=== PATIENT | male | born 1940 | race American Indian/Alaskan Native ===

== ENCOUNTER 2019-08-14 16:07 | Emergency (ER) | payer SELFPAY | END 2019-08-14 19:17 | disposition left against medical advice (07) | LOC: ED 16:07 | DX: R63.0 Anorexia (principal); Z53.21 Procedure and treatment not carried out due to patient leaving prior to being seen by health care provider ==

== ENCOUNTER 2021-01-12 13:56 | Inpatient (IN) | payer MEDICARE, OTHER ==
[2021-01-12] MEDS ORDERED: LORazepam 2 MG/ML VIAL ONE ×2 (13:58→14:05)
[2021-01-12] MEDS ORDERED: LORazepam 2 MG/ML VIAL IV ONE ×3 (14:05→14:19)
--- NOTE | 2021-01-12 14:52 | XRay Report ---
CHEST - 1 VIEW INDICATION: seizure COMPARISON: 10/02/2020 FINDINGS: SUPPORT DEVICES: Stable support device positioning. HEART: Stable cardiomediastinal silhouette. LUNGS/PLEURA: Small skin fold over the right upper lobe region. Mild streaky left basilar airspace d isease and mild bilateral central peribronchial thickening could be seen with early edema among other etiologies. ADDITIONAL FINDINGS: None. IMPRESSION: Pulmonary findings as above. Signer Name: Aguilar Anne MD Signed: 01/12/2021 2:48 PM Workstation Name: [id number]
[2021-01-12 14:55] LABS: Basophils # (Auto) 0.1 K/mm3 (0.0-0.1); Basophils % (Auto) 0.6 % (0.0-1.8); Eosinophils % (Auto) 0.4 % (0.0-4.3); Hemoglobin 12.3 gm/dl (11.8-15.2); Lymphocytes # (Auto) 1.6 K/mm3 (1.2-5.4); Lymphocytes % (Auto) 14.4 % (13.4-35.0); Mean Corpuscular HGB Conc 32 % (32-34); Mean Corpuscular Volume 85 fl (84-94); Monocytes # (Auto) 0.6 K/mm3 (0.0-0.8); Platelet Count 156 K/mm3 (140-440); Red Blood Count 4.57 M/mm3 (3.65-5.03)
[2021-01-12] MEDS ORDERED: levETIRAcetam 1000 MG/NS 0.75% 1,000 MG/100 ML BAG IV ONE (15:00)
[2021-01-12 15:48] LABS: Alanine Aminotransferase 11 units/L (7-56); Albumin 3.4 g/dL (3.9-5); BUN/Creatinine Ratio 8; Blood Urea Nitrogen 15 mg/dL (9-20); Calcium 8.2 mg/dL (8.4-10.2); Hemolysis Index 61
--- NOTE | 2021-01-12 15:54 | Cat Scan Report ---
CT BRAIN: 01/12/2021 INDICATION / CLINICAL INFORMATION: seizure. COMPARISON: CT brain 10/02/2020 FINDINGS: BRAIN/INTRACRANIAL STRUCTURES: Unenhanced CT images of the brain were obtained. There is been interval near complete resolution of the previously seen right frontoparietal subdural hygroma. There is some minimal residual pleural thickening and a small portion of the right frontal l obe. Prominent underlying age-related atrophic changes and extensive chronic white matter hypoattenuation is present. There is no evidence of hemorrhage or mass. There are no abnormal extra-axial fluid collections. Atherosclerotic vascular calcifications are present in the distal internal carotid arteries and verte bral arteries. EXTRACRANIAL STRUCTURES: Unremarkable. IMPRESSION: No acute abnormality. Extensive chronic and age-related changes. All CT scans at this location are performed using dose reduction to ALARA by means of automated expos ure control. Signer Name: Misael Hanley MD Signed: 01/12/2021 3:49 PM Workstation Name: [id number]
[2021-01-12 16:00] LABS: Bilirubin,Direct < 0.2 mg/dL (0-0.2)
--- NOTE | 2021-01-12 16:34 | Emergency Department Report ---
ED Seizure HPI - General Chief Complaint: Seizure Stated Complaint: SEIZURE Time Seen by Provider: 01/12/21 14:17 Source: EMS Mode of arrival: Stretcher Limitations: No Limitations - History of Present Illness Initial Comments: 80-year-old male presents to ED from dialysis with active seizure. EMS did not give any medications in route. EMS states dialysis center actually thought that patient was in cardiac arrest and was doing chest compressions on patient when they arrived. However, patient did have a pulse and was actually having a seizure. Patient presents to ED actively seizing. No history of seizure. I spoke with patient's and daughter. Family states patient is currently living in a rehab facility. states she went by to see him on yesterday and he had no complaints. Daughter states patient has been increasingly weak and having decreased p.o. intake, so rehab facility gave patient a bolus of IV fluids on yesterday. Daughter states patient is a full code. MD Complaint: seizure -: This afternoon Description of Episode: loss of consciousness -: minutes(s) (15) Witnessed:: Yes Trauma: No Seizure History: none Place: other (Dialysis center) Treatments Prior to Arrival: none - Related Data Home Medications Medication Instructions Recorded Confirmed Last Taken Alogliptin Benzoate [Alogliptin] 1 tab PO DAILY 10/02/20 10/25/20 Unknown Sevelamer Carbonate [Renvela] 800 mg PO TIDWM 10/02/20 10/25/20 Unknown buprenorphine hcl [Subutex] 2 mg SL QDAY PRN 10/02/20 10/25/20 Unknown Previous Rx's Medication Instructions Recorded Last Taken Type AtorvaSTATin [Lipitor] 40 mg PO QHS #30 10/11/20 Unknown Rx Docusate Sodium [Colace CAP] 100 mg PO BID PRN #60 cap 10/11/20 Unknown Rx Doxazosin [Cardura] 4 mg PO QDAY #30 10/11/20 Unknown Rx Febuxostat 40 mg PO QDAY #30 10/11/20 Unknown Rx Ketotifen Fumarate 1 drop OU QDAY #1 bottle 10/11/20 Unknown Rx Lansoprazole Solutab [Prevacid 30 mg FEEDTUBE BID #60 tab.rapdis 10/11/20 Unknown Rx Solutab] Megestrol Acetate 40 mg PO QDAY #30 10/11/20 Unknown Rx Metoprolol [Lopressor TAB] 12.5 mg PO BID #60 tablet 10/11/20 Unknown Rx calcitrioL [Rocaltrol] 1 mcg PO QDAY #30 cap 10/11/20 Unknown Rx timoloL maleate [Timolol Maleate 1 drop OP BID #1 bottle 10/11/20 Unknown Rx 0.25%] Allergies Allergy/AdvReac Type Severity Reaction Status Date / Time No Known Allergies Allergy Verified 08/14/19 16:11 ED Review of Systems ROS: Stated complaint: SEIZURE Other details as noted in HPI Comment: Unobtainable due to pts medical conditions ED Past Medical Hx - Past Medical History Hx Hypertension: Yes Hx Diabetes: Yes Hx Renal Disease: Yes ("home dialysis" ( T-T-S )) - Surgical History Additional Surgical History: dialysis port - Social History Smoking Status: Unknown if ever smoked - Medications Home Medications: Home Medications Medication Instructions Recorded Confirmed Last Taken Type Alogliptin Benzoate [Alogliptin] 1 tab PO DAILY 10/02/20 10/25/20 Unknown History Sevelamer Carbonate [Renvela] 800 mg PO TIDWM 10/02/20 10/25/20 Unknown History buprenorphine hcl [Subutex] 2 mg SL QDAY PRN 10/02/20 10/25/20 Unknown History AtorvaSTATin [Lipitor] 40 mg PO QHS #30 10/11/20 10/25/20 Unknown Rx Docusate Sodium [Colace CAP] 100 mg PO BID PRN #60 cap 10/11/20 10/25/20 Unknown Rx Doxazosin [Cardura] 4 mg PO QDAY #30 10/11/20 10/25/20 Unknown Rx Febuxostat 40 mg PO QDAY #30 10/11/20 10/25/20 Unknown Rx Ketotifen Fumarate 1 drop OU QDAY #1 bottle 10/11/20 10/25/20 Unknown Rx Lansoprazole Solutab [Prevacid 30 mg FEEDTUBE BID #60 tab.rapdis 10/11/20 10/25/20 Unknown Rx Solutab] Megestrol Acetate 40 mg PO QDAY #30 10/11/20 10/25/20 Unknown Rx Metoprolol [Lopressor TAB] 12.5 mg PO BID #60 tablet 10/11/20 10/25/20 Unknown Rx calcitrioL [Rocaltrol] 1 mcg PO QDAY #30 cap 10/11/20 10/25/20 Unknown Rx timoloL maleate [Timolol Maleate 1 drop OP BID #1 bottle 10/11/20 10/25/20 Unknown Rx 0.25%] ED Physical Exam - General Limitations: No Limitations General appearance: obtunded - Head Head exam: Present: atraumatic, normocephalic - Eye Eye exam: Present: other (Leftward gaze present) - ENT ENT exam: Present: mucous membranes moist - Neck Neck exam: Present: normal inspection - Respiratory Respiratory exam: Present: normal lung sounds bilaterally. Absent: respiratory distress - Cardiovascular Cardiovascular Exam: Present: regular rate, normal rhythm - GI/Abdominal GI/Abdominal exam: Present: soft, other (PEG tube in place). Absent: distended - Extremities Exam Extremities exam: Present: normal inspection - Neurological Exam Neurological exam: Present: other (Actively seizing; initially generalized, then located in the left upper extremity w/ leftward gaze deviation) - Psychiatric Psychiatric exam: Present: normal affect, normal mood - Skin Skin exam: Present: warm, dry, intact, normal color ED Course Vital Signs 01/12/21 01/12/21 01/12/21 14:14 14:15 14:31 Temperature Pulse Rate 95 H Respiratory 21 Rate Blood Pressure 148/66 Blood Pressure [Left] O2 Sat by Pulse 76 L 100 100 Oximetry 01/12/21 01/12/21 01/12/21 14:45 15:01 15:15 Temperature Pulse Rate 95 H 92 H 90 Respiratory 31 H 25 H 30 H Rate Blood Pressure 141/80 135/68 134/65 Blood Pressure [Left] O2 Sat by Pulse 100 100 100 Oximetry 01/12/21 01/12/21 01/12/21 15:31 15:45 15:52 Temperature 98.3 F Pulse Rate 96 H 87 Respiratory 26 H 26 H Rate Blood Pressure 137/66 137/66 Blood Pressure [Left] O2 Sat by Pulse 100 100 Oximetry 01/12/21 01/12/21 01/12/21 16:01 16:15 16:45 Temperature Pulse Rate 83 86 109 H Respiratory 25 H 25 H 33 H Rate Blood Pressure 145/64 137/66 145/64 Blood Pressure [Left] O2 Sat by Pulse 100 98 97 Oximetry 01/12/21 01/12/21 01/12/21 17:01 17:15 18:15 Temperature Pulse Rate 93 H 96 H 76 Respiratory 38 H 25 H 29 H Rate Blood Pressure 183/86 183/86 168/83 Blood Pressure [Left] O2 Sat by Pulse 96 96 97 Oximetry 01/12/21 01/12/21 01/12/21 18:31 19:01 19:31 Temperature Pulse Rate 71 76 83 Respiratory 39 H 42 H 20 Rate Blood Pressure 168/83 172/82 152/80 Blood Pressure [Left] O2 Sat by Pulse 97 96 97 Oximetry 01/12/21 01/12/21 01/12/21 20:01 20:21 20:35 Temperature Pulse Rate 98 H 75 71 Respiratory 32 H 40 H 28 H Rate Blood Pressure 191/98 191/98 Blood Pressure 188/84 [Left] O2 Sat by Pulse 97 99 99 Oximetry 01/12/21 01/12/21 01/12/21 20:39 20:41 20:51 Temperature Pulse Rate 74 69 75 Respiratory 39 H 37 H 40 H Rate Blood Pressure 188/84 188/84 191/98 Blood Pressure [Left] O2 Sat by Pulse 98 99 99 Oximetry 01/12/21 01/12/21 21:01 21:11 Temperature Pulse Rate 71 72 Respiratory 31 H 39 H Rate Blood Pressure 188/83 188/83 Blood Pressure [Left] O2 Sat by Pulse 99 99 Oximetry ED Medical Decision Making - Lab Data Result diagrams: 01/12/21 14:36 01/13/21 05:19 - EKG Data -: EKG Interpreted by Nv EKG shows normal: QRS complexes, ST-T waves Rate: normal - EKG Data Interpretation: no acute changes, other (Atrial flutter) - Radiology Data Radiology results: report reviewed, image reviewed - Medical Decision Making 80-year-old male presents to ED with new onset seizure. Patient had been seizing for at least 15 minutes, per EMS, while in their care. No meds given by EMS. Patient was given a total of 6 mg of Ativan and 1000 mg of Keppra upon arrival in the ED. Seizure activity and gaze deviation have currently resolved, however patient remains postictal and sedated. No further seizures in the ED. CT head negative for any acute findings. Labs are unremarkable. Chest x-ray shows findings of possible early edema. Vital signs are stable. EKG shows new onset atrial flutter, with no ST changes. Patient will be admitted by hospitalist, Dr. Grant, for further management. - Differential Diagnosis CVA, epilepsy, mass, electrolyte abnormality Critical care attestation.: If time is entered above; I have spent that time in minutes in the direct care of this critically ill patient, excluding procedure time. ED Disposition Clinical Impression: New onset seizure, New onset atrial flutter, Postictal state Disposition: OP ADMIT IP TO THIS HOSP Is pt being admited?: Yes Condition: Stable
--- NOTE | 2021-01-12 16:49 | History and Physical Report ---
History of Present Illness Chief complaint: He had a seizure History of present illness: 80 YO Male [facility] Resident with ESRD on HD(T,R,Sa), HLD, HTN, Vascular Dementia, Cerebral Atherosclerosis presents to ED for evaluation. Patient has diminished cognition at the time my evaluation is unable provide detailed history. Patient history taken from EMS staff, ED staff, as well as the patient's family who was made available by telephone for interview. As per family the patient was in his usual state of health when visited at the halfway facility by his on yesterday. Patient presented to his outpatient dialysis center today for routine scheduled dialysis. Patient was initially pierce spected to have cardiac arrest and was initiated on ACLS protocol. EMS was notified and upon arrival the patient was found to be and actively seizing. Chest compressions were discontinued. The patient was subsequently transported to [facility] for further care and evaluation of the aforementioned symptoms. The patient was seen and evaluated in the emergency department. All lab and imaging studies reviewed. Patient found to have new onset seizure disorder, end-stage renal disease, acidosis. Patient placed in observation status and admitted to telemetry for further care and evaluation of the aforementioned symptoms. No reports of fever, chills, chest pain, palpitation, productive cough, skin rash, recent ill contacts, or known exposure to COVID-19. Prior admission on 10/25/2020 reviewed. All medication listed at time of admission has been reconciled. Advanced care planning conducted in ED. Past History Past Medical History: ESRD, hypertension, hyperlipidemia, other (See HPI) Past Surgical History: Other (Dialysis access) Social history: . denies: smoking, alcohol abuse Family history: diabetes, hypertension Medications and Allergies Allergies Allergy/AdvReac Type Severity Reaction Status Date / Time No Known Allergies Allergy Verified 08/14/19 16:11 Home Medications Medication Instructions Recorded Confirmed Last Taken Type Alogliptin Benzoate [Alogliptin] 1 tab PO DAILY 10/02/20 10/25/20 Unknown History Sevelamer Carbonate [Renvela] 800 mg PO TIDWM 10/02/20 10/25/20 Unknown History buprenorphine hcl [Subutex] 2 mg SL QDAY PRN 10/02/20 10/25/20 Unknown History AtorvaSTATin [Lipitor] 40 mg PO QHS #30 10/11/20 10/25/20 Unknown Rx Docusate Sodium [Colace CAP] 100 mg PO BID PRN #60 cap 10/11/20 10/25/20 Unknown Rx Doxazosin [Cardura] 4 mg PO QDAY #30 10/11/20 10/25/20 Unknown Rx Febuxostat 40 mg PO QDAY #30 10/11/20 10/25/20 Unknown Rx Ketotifen Fumarate 1 drop OU QDAY #1 bottle 10/11/20 10/25/20 Unknown Rx Lansoprazole Solutab [Prevacid 30 mg FEEDTUBE BID #60 tab.rapdis 10/11/20 10/25/20 Unknown Rx Solutab] Megestrol Acetate 40 mg PO QDAY #30 10/11/20 10/25/20 Unknown Rx Metoprolol [Lopressor TAB] 12.5 mg PO BID #60 tablet 10/11/20 10/25/20 Unknown Rx calcitrioL [Rocaltrol] 1 mcg PO QDAY #30 cap 10/11/20 10/25/20 Unknown Rx timoloL maleate [Timolol Maleate 1 drop OP BID #1 bottle 10/11/20 10/25/20 Unknown Rx 0.25%] Review of Systems ROS unobtainable: due to mental status Exam - Constitutional Vitals: Temp Pulse Resp BP Pulse Ox 98.3 F 87 26 H 137/66 100 01/12/21 15:52 01/12/21 15:45 01/12/21 15:45 01/12/21 15:45 01/12/21 15:45 General appearance: Present: mild distress - EENT Eyes: Present: PERRL ENT: hearing intact, clear oral mucosa - Neck Neck: Present: supple, normal ROM - Respiratory Respiratory effort: normal Respiratory: bilateral: CTA - Cardiovascular Heart Sounds: Present: S1 & S2. Absent: rub, click - Extremities Extremities: pulses symmetrical, No edema Peripheral Pulses: within normal limits - Abdominal General gastrointestinal: Present: soft, non-tender, non-distended, normal bowel sounds Male genitourinary: Present: normal - Integumentary Integumentary: Present: clear, warm, dry - Musculoskeletal Musculoskeletal: generalized weakness - Psychiatric Psychiatric: no appropriate mood/affect, no intact judgment & insight, no memory intact - Neurologic Neurologic: CNII-XII intact, no focal deficits, moves all extremities, no gait normal Results - Labs CBC & Chem 7: 07/10/21 14:36 01/12/21 14:36 Labs: Abnormal lab results 01/12/21 01/12/21 01/12/21 Range/Units 14:12 14:36 14:36 WBC 11.2 H (4.5-11.0) K/mm3 MCH 27 L (28-32) pg RDW 21.0 H (13.2-15.2) % Seg Neutrophils % 79.6 H (40.0-70.0) % Seg Neutrophils # 8.9 H (1.8-7.7) K/mm3 Sodium 136 L (137-145) mmol/L Chloride 95.8 L (98-107) mmol/L Carbon Dioxide 19 L (22-30) mmol/L Creatinine 2.0 H (0.8-1.3) mg/dL Glucose 163 H (75-100) mg/dL POC Glucose 166 H (70-105) mg/dL Calcium 8.2 L (8.4-10.2) mg/dL Total Protein 5.4 L (6.3-8.2) g/dL Albumin 3.4 L (3.9-5) g/dL Assessment and Plan - Patient Problems (1) Vascular dementia Current Visit: Yes Status: Acute Qualifiers: Dementia behavioral disturbance: without behavioral disturbance Qualified Code(s): F01.50 - Vascular dementia without behavioral disturbance Plan to address problem: Verbal prompting, verbal redirection, benzodiazepine therapy as clinically indicated, supportive care. (2) Cerebral atherosclerosis Current Visit: Yes Status: Acute Plan to address problem: Antiplatelet therapy as clinically indicated, supportive care. (3) End stage renal disease Current Visit: Yes Status: Acute Plan to address problem: Nephrology team consulted in ED, dialysis as per renal team, avoid nephrotoxic agents. (4) New onset seizure Current Visit: Yes Status: Acute Plan to address problem: Keppra therapy, Keppra therapy twice daily, supportive care, CT scan brain (5) DVT prophylaxis Current Visit: Yes Status: Acute Plan to address problem: SCD to bilateral lower extremities while in bed, prophylactic anticoagulation (6) Advance care planning Current Visit: Yes Status: Acute Plan to address problem: Disease education conducted, care plan discussed, diagnoses discussed, prognosis discussed, patient is full code. Patient family knowledge understanding agree with care plan, +30 minutes.
[2021-01-12] MEDS ORDERED: DOCUSATE SODIUM 100 MG CAP PO PRN (18:54)
[2021-01-12] MEDS ORDERED: buprenorphine 2 MG TAB SUBL SL PRN (18:54)
[2021-01-12] MEDS ORDERED: HYDROmorphone 1 MG/1 ML INJ IV PRN (19:30)
[2021-01-12] MEDS ORDERED: oxyCODONE /ACETAMINOPHEN 5-325MG TAB PO PRN (19:30)
[2021-01-12] MEDS ORDERED: ALBUTEROL 2.5 MG/3 ML NEBU IH PRN (19:30)
[2021-01-12] MEDS ORDERED: ACETAMINOPHEN 325 MG TAB PO PRN (19:30)
[2021-01-12] MEDS ORDERED: ONDANSETRON 4 MG/2 ML INJ IV PRN (19:30)
[2021-01-12] MEDS: METOPROLOL TARTRATE 25 MG TAB PO SCH (23:19)
[2021-01-12] MEDS: levETIRAcetam 500 MG/5 ML ORAL LIQD PO SCH (23:19)
[2021-01-12] MEDS: LANSOPRAZOLE 30 MG SOLUTAB FEEDTUBE SCH (23:19)
[2021-01-13] MEDS: hydrALAZINE 20 MG/1 ML INJ IV PRN (05:33)
[2021-01-13 07:58] LABS: Albumin 3.3 g/dL (3.9-5)
--- NOTE | 2021-01-13 09:20 | Progress Note ---
Assessment and Plan Assessment and plan: 80 YO Male Residential Facility Resident with ESRD on HD(T,R,Sa), HLD, HTN, Vascular Dementia, Cerebral Atherosclerosi admitted with diagnosis of new onset seizure. Patient was started on IV Keppra. Patient has had no new seizure activity. New onset seizure disorder. Vascular dementia Cerebral atherosclerosis ESRD 01/13/2021. Seizure precautions. Continue IV Keppra and await neurology eval uation. Check EEG and MRI. CT scan negative. Continue hemodialysis per nephrology recommendations. History Interval history: No new seizures since admission Hospitalist Physical - Constitutional Vitals: Temp Pulse Resp BP Pulse Ox 97.8 F 82 18 151/82 100 01/13/21 08:19 01/13/21 08:19 01/13/21 08:19 01/13/21 08:19 01/13/21 08:19 General appearance: Present: no acute distress - EENT Eyes: Present: PERRL, EOM intact ENT: hearing intact, clear oral mucosa, dentition normal - Neck Neck: Present: supple, normal ROM - Respiratory Respiratory effort: normal Respiratory: bilateral: CTA - Cardiovascular Rhythm: regular Heart Sounds: Present: S1 & S2. Absent: gallop, rub - Extremities Extremities: no ischemia, No edema, Full ROM - Abdominal General gastrointestinal: soft, non-tender, non-distended, normal bowel sounds - Integumentary Integumentary: Present: clear, warm, dry - Neurologic Neurologic: CNII-XII intact, moves all extremities Results - Labs CBC & Chem 7: 01/12/21 14:36 01/13/21 05:19 Labs: Laboratory Last Values WBC 11.2 K/mm3 (4.5-11.0) H 01/12/21 14:36 RBC 4.57 M/mm3 (3.65-5.03) 01/12/21 14:36 Hgb 12.3 gm/dl (11.8-15.2) 01/12/21 14:36 Hct 39.0 % (35.5-45.6) 01/12/21 14:36 MCV 85 fl (84-94) 01/12/21 14:36 MCH 27 pg (28-32) L 01/12/21 14:36 MCHC 32 % (32-34) 01/12/21 14:36 RDW 21.0 % (13.2-15.2) H 01/12/21 14:36 Plt Count 156 K/mm3 (140-440) 01/12/21 14:36 Lymph % (Auto) 14.4 % (13.4-35.0) 01/12/21 14:36 Owsley % (Auto) 5.0 % (0.0-7.3) 01/12/21 14:36 Eos % (Auto) 0.4 % (0.0-4.3) 01/12/21 14:36 Baso % (Auto) 0.6 % (0.0-1.8) 01/12/21 14:36 Lymph # (Auto) 1.6 K/mm3 (1.2-5.4) 01/12/21 14:36 [place]wsley # (Auto) 0.6 K/mm3 (0.0-0.8) 01/12/21 14:36 Eos # (Auto) 0.0 K/mm3 (0.0-0.4) 01/12/21 14:36 Baso # (Auto) 0.1 K/mm3 (0.0-0.1) 01/12/21 14:36 Seg Neutrophils % 79.6 % (40.0-70.0) H 01/12/21 14:36 Seg Neutrophils # 8.9 K/mm3 (1.8-7.7) H 01/12/21 14:36 Sodium 134 mmol/L (137-145) L 01/13/21 05:19 Potassium 3.9 mmol/L (3.6-5.0) 01/13/21 05:19 Chloride 95.5 mmol/L (98-107) L 01/13/21 05:19 Carbon Dioxide 22 mmol/L (22-30) 01/13/21 05:19 Anion Gap 20 mmol/L 01/13/21 05:19 BUN 23 mg/dL (9-20) H 01/13/21 05:19 Creatinine 2.6 mg/dL (0.8-1.3) H 01/13/21 05:19 Estimated GFR 29 ml/min 01/13/21 05:19 BUN/Creatinine Ratio 9 % 01/13/21 05:19 Glucose 168 mg/dL (75-100) H 01/13/21 05:19 POC Glucose 166 mg/dL (70-105) H 01/12/21 14:12 Calcium 9.0 mg/dL (8.4-10.2) 01/13/21 05:19 Total Bilirubin 0.30 mg/dL (0.1-1.2) 01/13/21 05:19 Direct Bilirubin < 0.2 mg/dL (0-0.2) 01/12/21 14:36 Indirect Bilirubin 0.1 mg/dL 01/12/21 14:36 AST 27 units/L (5-40) 01/13/21 05:19 ALT 10 units/L (7-56) 01/13/21 05:19 Alkaline Phosphatase 72 units/L (35-129) 01/13/21 05:19 Total Protein 5.8 g/dL (6.3-8.2) L 01/13/21 05:19 Albumin 3.3 g/dL (3.9-5) L 01/13/21 05:19 Albumin/Globulin Ratio 1.3 % 01/13/21 05:19 Brewer/IV: Voiding Method Incontinent Active Medications - Current Medications Current Medications: Generic Name Dose Route Start Last Admin Trade Name Freq PRN Reason Stop Dose Admin Acetaminophen 650 mg 01/12/21 19:30 Acetaminophen 325 Mg Tab PO Q4H PRN Pain MILD(1-3)/Fever >100.5/ABEL Albuterol 2.5 mg 01/12/21 19:30 Albuterol 2.5 Mg/3 Ml Nebu IH Q4HRT PRN Shortness Of Breath Atorvastatin Calcium 40 mg 01/12/21 22:00 01/12/21 23:19 Atorvastatin 40 Mg Tab PO 40 mg QHS NOLAN Administration Buprenorphine HCl 2 mg 01/12/21 18:54 Buprenorphine 2 Mg Tab Subl SL QDAY PRN Pain , Severe (7-10) Calcitriol 1 mcg 01/13/21 10:00 Calcitriol 0.5 Mcg Cap PO QDAY NOLAN Docusate Sodium 100 mg 01/12/21 18:54 Docusate Sodium 100 Mg Cap PO BID PRN Constipation Doxazosin Mesylate 4 mg 01/13/21 10:00 Doxazosin 4 Mg Tab PO QDAY NOLAN Hydralazine HCl 5 mg 01/13/21 05:21 01/13/21 05:33 Hydralazine 20 Mg/1 Ml Inj IV 5 mg Q4H PRN Administration Hypertension Hydromorphone HCl 0.5 mg 01/12/21 19:30 Hydromorphone 1 Mg/1 Ml Inj IV Q12H PRN Pain , Severe (7-10) Lansoprazole 30 mg 01/12/21 22:00 01/12/21 23:19 Lansoprazole 30 Mg Solutab FEEDTUBE 30 mg BID NOLAN Administration Levetiracetam 500 mg 01/12/21 22:00 01/12/21 23:19 Levetiracetam 500 Mg/5 Ml Oral Liqd PO 500 mg BID NOLAN Administration Megestrol Acetate 40 mg 01/13/21 10:00 Megestrol 40 Mg Tab PO QDAY NOLAN Metoprolol Tartrate 12.5 mg 01/12/21 22:00 01/12/21 23:19 Metoprolol Tartrate 25 Mg Tab PO 12.5 mg BID NOLAN Administration Miscellaneous Medication 1 tab 01/13/21 10:00 Alogliptin Benzoate [Alogliptin] PO DAILY [facility] Miscellaneous Medication 40 mg 01/13/21 10:00 Febuxostat [Febuxostat] PO QDAY [facility] Miscellaneous Medication 1 drop 01/13/21 10:00 Ketotifen Fumarate [Ketotifen Fumarate] OU QDAY [facility] Miscellaneous Medication 1 drop 01/12/21 22:00 Timolol Maleate [Timolol Maleate 0.25%] OP BID NOLAN Ondansetron HCl 4 mg 01/12/21 19:30 Ondansetron 4 Mg/2 Ml Inj IV Q8H PRN Nausea And Vomiting Oxycodone/Acetaminophen 1 tab 01/12/21 19:30 Oxycodone /Acetaminophen 5-325mg Tab PO Q12H PRN Pain, Moderate (4-6) Sevelamer Carbonate 800 mg 01/13/21 08:00 Sevelamer Carbonate 800 Mg Tab PO TIDWM NOLAN Sodium Chloride 10 ml 01/12/21 22:00 01/12/21 23:19 Sodium Chloride 0.9% 10 Ml Flush Syringe IV 10 ml BID NOLAN Administration Sodium Chloride 10 ml 01/12/21 19:30 Sodium Chloride 0.9% 10 Ml Flush Syringe IV PRN PRN LINE FLUSH
[2021-01-13] MEDS ORDERED: ALOGLIPTIN BENZOATE 25 MG PO SCH (10:00)
[2021-01-13] MEDS ORDERED: KETOTIFEN FUMARATE OU SCH (10:00)
[2021-01-13] MEDS ORDERED: FEBUXOSTAT 40 MG PO SCH (10:00)
[2021-01-13] MEDS ORDERED: LIPASE 10,500/PROTEASE 25,000/AMYLASE 43,750 (UNITS) DR CAP FEEDTUBE PRN (10:11)
[2021-01-13] MEDS ORDERED: SIMPLE SYRUP 15 ML FEEDTUBE PRN ×2 (10:11)
[2021-01-13] MEDS: levETIRAcetam 500 MG/5 ML ORAL LIQD PO SCH ×3 (10:16→22:57)
[2021-01-13] MEDS: SEVELAMER CARBONATE 800 MG TAB PO SCH ×3 (10:17→17:44)
[2021-01-13] MEDS: METOPROLOL TARTRATE 25 MG TAB PO SCH ×2 (10:17→22:57)
[2021-01-13] MEDS: CALCITRIOL 0.5 MCG CAP PO SCH (10:17)
[2021-01-13] MEDS: DOXAZOSIN 4 MG TAB PO SCH (10:17)
[2021-01-13] MEDS: LANSOPRAZOLE 30 MG SOLUTAB FEEDTUBE SCH ×2 (10:17→22:57)
[2021-01-13] MEDS: MEGESTROL 40 MG TAB PO SCH (10:22)
--- NOTE | 2021-01-13 11:27 | Consultation ---
History of Present Illness Consult date: 01/13/21 Reason for Consult: New onset of seizure History of present illness: He had a seizure History of present illness: 80 YO Male Long-Term Facility Resident with ESRD on HD(T,R,Sa), HLD, HTN, Vascular Dementia, Cerebral Atherosclerosis presents to ED for evaluation. Patient has diminished cognition at the time my evaluation is unable provide detailed history. Patient history taken from EMS staff, ED staff, as well as the patient's family who was made available by telephone for interview. As per family the patient was in his usual state of health when visited at the intermediate facility by his on yesterday. Patient presented to his outpatient dialysis center today for routine scheduled dialysis. Patient was initially suspected to have cardiac arrest and was initiated on ACLS protocol. EMS was notified and upon arrival the patient was found to be and actively seizing. Chest compressions were discontinued. The patient was subsequently transported to [facility] for further care and evaluation of the aforementioned symptoms. The patient was seen and evaluated in the emergency department. All lab and imaging studies reviewed. Patient found to have new onset seizure disorder, end-stage renal disease, acidosis. Patient placed in observation status and admitted to telemetry for further care and evaluation of the aforementioned symptoms. No reports of fever, chills, chest pain, palpitation, productive cough, skin rash, recent ill contacts, or known exposure to COVID-19. Prior admission on 10/25/2020 reviewed. All medication listed at time of admission has been reconciled. Advanced care planning conducted in ED. 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 started on Keppra 500 mg IV bid since admission he is lethargic not follow command as per nurse he is with peg tube for feeding No witnessed seizure since admission Past History Past Medical History: ESRD, hypertension, hyperlipidemia, other (See HPI) Past Surgical History: Other (Dialysis access) Social history: . denies: smoking, alcohol abuse Family history: diabetes, hypertension Medications and Allergies Allergies Allergy/AdvReac Type Severity Reaction Status Date / Time No Known Allergies Allergy Verified 08/14/19 16:11 Home Medications Medication Instructions Recorded Confirmed Last Taken Type Alogliptin Benzoate [Alogliptin] 1 tab PO DAILY 10/02/20 10/25/20 Unknown History Sevelamer Carbonate [Renvela] 800 mg PO TIDWM 10/02/20 10/25/20 Unknown History buprenorphine hcl [Subutex] 2 mg SL QDAY PRN 10/02/20 10/25/20 Unknown History AtorvaSTATin [Lipitor] 40 mg PO QHS #30 10/11/20 10/25/20 Unknown Rx Docusate Sodium [Colace CAP] 100 mg PO BID PRN #60 cap 10/11/20 10/25/20 Unknown Rx Doxazosin [Cardura] 4 mg PO QDAY #30 10/11/20 10/25/20 Unknown Rx Febuxostat 40 mg PO QDAY #30 10/11/20 10/25/20 Unknown Rx Ketotifen Fumarate 1 drop OU QDAY #1 bottle 10/11/20 10/25/20 Unknown Rx Lansoprazole Solutab [Prevacid 30 mg FEEDTUBE BID #60 tab.rapdis 10/11/2010/05 Unknown Rx Solutab] Megestrol Acetate 40 mg PO QDAY #30 10/11/20 10/25/20 Unknown Rx Metoprolol [Lopressor TAB] 12.5 mg PO BID #60 tablet 10/11/20 10/25/20 Unknown Rx calcitrioL [Rocaltrol] 1 mcg PO QDAY #30 cap 10/11/20 10/25/20 Unknown Rx timoloL maleate [Timolol Maleate 1 drop OP BID #1 bottle 10/11/20 10/25/20 Unknown Rx 0.25%] Review of Systems ROS unobtainable: due to mental status Past History Past Medical History: ESRD, hypertension, hyperlipidemia, other (See HPI) Past Surgical History: Other (Dialysis access) Social history: . denies: smoking, alcohol abuse Family history: diabetes, hypertension Medications and Allergies Allergies Allergy/AdvReac Type Severity Reaction Status Date / Time No Known Allergies Allergy Verified 08/14/19 16:11 Home Medications Medication Instructions Recorded Confirmed Last Taken Type Alogliptin Benzoate [Alogliptin] 1 tab PO DAILY 10/02/20 10/25/20 Unknown History Sevelamer Carbonate [Renvela] 800 mg PO TIDWM 10/02/20 10/25/20 Unknown History buprenorphine hcl [Subutex] 2 mg SL QDAY PRN 10/02/20 10/25/20 Unknown History AtorvaSTATin [Lipitor] 40 mg PO QHS #30 10/11/20 10/25/20 Unknown Rx Docusate Sodium [Colace CAP] 100 mg PO BID PRN #60 cap 10/11/20 10/25/20 Unknown Rx Doxazosin [Cardura] 4 mg PO QDAY #30 10/11/20 10/25/20 Unknown Rx Febuxostat 40 mg PO QDAY #30 10/11/20 10/25/20 Unknown Rx Ketotifen Fumarate 1 drop OU QDAY #1 bottle 10/11/20 10/25/20 Unknown Rx Lansoprazole Solutab [Prevacid 30 mg FEEDTUBE BID #60 tab.rapdis 10/11/2010/05 Unknown Rx Solutab] Megestrol Acetate 40 mg PO QDAY #30 10/11/20 10/25/20 Unknown Rx Metoprolol [Lopressor TAB] 12.5 mg PO BID #60 tablet 10/11/20 10/25/20 Unknown Rx calcitrioL [Rocaltrol] 1 mcg PO QDAY #30 cap 10/11/20 10/25/20 Unknown Rx timoloL maleate [Timolol Maleate 1 drop OP BID #1 bottle 10/11/20 10/25/20 Unknown Rx 0.25%] Active Meds: Active Medications Acetaminophen (Acetaminophen 325 Mg Tab) 650 mg PO Q4H PRN PRN Reason: Pain MILD(1-3)/Fever >100.5/ABEL Albuterol (Albuterol 2.5 Mg/3 Ml Nebu) 2.5 mg IH Q4HRT PRN PRN Reason: Shortness Of Breath Lipase/Protease/Amylase (Lipase 10,500/Protease 25,000/Amylase 43,750 (Units) Dr Silveira) 1 each FEEDTUBE PRN PRN PRN Reason: For Clogged Feeding Tube Atorvastatin Calcium (Atorvastatin 40 Mg Tab) 40 mg PO QHS [facility] Last Admin: 01/12/21 23:19 Dose: 40 mg Documented by: Buprenorphine HCl (Buprenorphine 2 Mg Tab Subl) 2 mg SL QDAY PRN PRN Reason: Pain , Severe (7-10) Calcitriol (Calcitriol 0.5 Mcg Cap) 1 mcg PO QDAY [facility] Last Admin: 01/13/21 10:17 Dose: 1 mcg Documented by: Docusate Sodium (Docusate Sodium 100 Mg Cap) 100 mg PO BID PRN PRN Reason: Constipation Doxazosin Mesylate (Doxazosin 4 Mg Tab) 4 mg PO QDAY [facility] Last Admin: 01/13/21 10:17 Dose: 4 mg Documented by: Hydralazine HCl (Hydralazine 20 Mg/1 Ml Inj) 5 mg IV Q4H PRN PRN Reason: Hypertension Last Admin: 01/13/21 05:33 Dose: 5 mg Documented by: Hydromorphone HCl (Hydromorphone 1 Mg/1 Ml Inj) 0.5 mg IV Q12H PRN PRN Reason: Pain , Severe (7-10) Lansoprazole (Lansoprazole 30 Mg Solutab) 30 mg FEEDTUBE BID [facility] Last Admin: 01/13/21 10:17 Dose: 30 mg Documented by: Levetiracetam (Levetiracetam 500 Mg/5 Ml Oral Liqd) 500 mg PO BID [facility] Last Admin: 01/13/21 10:16 Dose: 500 mg Documented by: Linagliptin (Linagliptin 5 Mg Tab) 5 mg PO QDDIAB [facility] Megestrol Acetate (Megestrol 40 Mg Tab) 40 mg PO QDAY [facility] Last Admin: 01/13/21 10:22 Dose: 40 mg Documented by: Metoprolol Tartrate (Metoprolol Tartrate 25 Mg Tab) 12.5 mg PO BID [facility] Last Admin: 01/13/21 10:17 Dose: 12.5 mg Documented by: Miscellaneous Medication (Febuxostat [Febuxostat]) 40 mg PO QDAY [facility] Miscellaneous Medication (Ketotifen Fumarate [Ketotifen Fumarate]) 1 drop OU QDAY [facility] Miscellaneous Medication (Timolol Maleate [Timolol Maleate 0.25%]) 1 drop OP BID [facility] Ondansetron HCl (Ondansetron 4 Mg/2 Ml Inj) 4 mg IV Q8H PRN PRN Reason: Nausea And Vomiting Oxycodone/Acetaminophen (Oxycodone /Acetaminophen 5-325mg Tab) 1 tab PO Q12H PRN PRN Reason: Pain, Moderate (4-6) Sevelamer Carbonate (Sevelamer Carbonate 800 Mg Tab) 800 mg PO TIDWM [facility] Last Admin: 01/13/21 10:17 Dose: 800 mg Documented by: Simple Syrup (Simple Syrup 15 Ml) 15 ml FEEDTUBE PRN PRN PRN Reason: Hypoglycemia Simple Syrup (Simple Syrup 15 Ml) 30 ml FEEDTUBE PRN PRN PRN Reason: Hypoglycemia Sodium Bicarbonate (Sodium Bicarbonate 325 Mg Tab) 325 mg FEEDTUBE PRN PRN PRN Reason: For Clogged Feeding Tube Sodium Chloride (Sodium Chloride 0.9% 10 Ml Flush Syringe) 10 ml IV BID [facility] Last Admin: 01/13/21 10:18 Dose: 10 ml Documented by: Sodium Chloride (Sodium Chloride 0.9% 10 Ml Flush Syringe) 10 ml IV PRN PRN PRN Reason: LINE FLUSH Physical Examination - Vital Signs Vital Signs: Vital Signs Pulse Ox 76 L 01/12/21 14:14 - Constitutional General appearance: other (lethargic not follow command ,he is with generalized rigidity ) - EENT EENT: Present: PERRL, mucous membranes moist - Respiratory Respiratory: Present: lungs clear, normal breath sounds, rhonchi - Cardiovascular Cardiovascular: Present: regular rate, normal S1, normal S2 Extremities: Present: no peripheral edema bilatateraly, no clubbing, cyanosis - Gastrointestinal Gastrointestinal: Present: normoactive bowel sounds - Integumentary Integumentary: Present: normal - Neurologic Cranial nerve examination: other (no facial asymmetry , pupils constricted sluggish , EOM is intact ) Speech examination: other Sensorimotor examination: other (slight movment to sternal rub , he is with truncal rigidity is noted ) Results - Laboratory Findings CBC and BMP: 01/12/21 14:36 01/13/21 05:19 Abnormal Lab Findings: Abnormal Labs 01/12/21 01/12/21 01/12/21 14:12 14:36 14:36 WBC 11.2 H MCH 27 L RDW 21.0 H Seg Neutrophils % 79.6 H Seg Neutrophils # 8.9 H Sodium 136 L Chloride 95.8 L Carbon Dioxide 19 L BUN Creatinine 2.0 H Glucose 163 H POC Glucose 166 H Calcium 8.2 L Total Protein 5.4 L Albumin 3.4 L 01/13/21 05:19 WBC MCH RDW Seg Neutrophils % Seg Neutrophils # Sodium 134 L Chloride 95.5 L Carbon Dioxide BUN 23 H Creatinine 2.6 H Glucose 168 H POC Glucose Calcium Total Protein 5.8 L Albumin 3.3 L Assessment and Plan Assessment and Plan # New onset of possible witnessed seizure during dialysis yesterday -CT brain is remarkable for white matter changes -Keppra 500 mg IV -MRI brain is pending -EEG am -Seizure precaution -Cut down keppra to 250 mg bid -Ativan prn for seizure -Seizure precaution -R/O underlying infection. # Advanced dementia -Ct white matter changes -truncal rigidity -? base line # End stage renal disease 28/08.6 -Nephrology team consulted in ED, -dialysis as per renal team, -avoid nephrotoxic agents. # DVT prophylaxis -SCD to bilateral lower extremities while in bed, prophylactic anticoagulation # Advance care planning -Disease education conducted, care plan discussed, diagnoses discussed, prognosis discussed, patient is full code. Patient family knowledge understanding agree with care plan, +30 minutes. will follow
[2021-01-13] MEDS: LINAGLIPTIN 5 MG TAB PO SCH (12:29)
--- NOTE | 2021-01-13 12:53 | Consultation ---
History of Present Illness - Reason for Consult Consult date: 01/13/21 end stage renal disease - History of Present Illness The patient is an 80 YO male with history significant for Hypertension, Diabetes mellitus, Anemia, Dysphagia s/p PEG placement who was brought into [facility] ED 01/12 for evaluation of seizures. Patient was not able to provide any history and information was obtained from his at the bedside and prior notes. At the hemodialysis unit he was initially suspected to have cardiac arrest and was initiated on ACLS protocol. EMS was notified and upon arrival the patient was found to be and actively seizing. The patient was seen and evaluated in the emergency department. Initial vital signs were ok. All lab and imaging studies reviewed. Patient was admitted for further evaluation and treatment. Nephrology was consulted for ESRD management. Past History Past Medical History: dialysis, ESRD, hypertension, hyperlipidemia, other (See HPI) Past Surgical History: Other (Dialysis access) Social history: . denies: smoking, alcohol abuse Family history: diabetes, hypertension Medications and Allergies Allergies Allergy/AdvReac Type Severity Reaction Status Date / Time No Known Allergies Allergy Verified 08/14/19 16:11 Home Medications Medication Instructions Recorded Confirmed Last Taken Type Alogliptin Benzoate [Alogliptin] 1 tab PO DAILY 10/02/20 10/25/20 Unknown History Sevelamer Carbonate [Renvela] 800 mg PO TIDWM 10/02/20 10/25/20 Unknown History buprenorphine hcl [Subutex] 2 mg SL QDAY PRN 10/02/20 10/25/20 Unknown History AtorvaSTATin [Lipitor] 40 mg PO QHS #30 10/11/20 10/25/20 Unknown Rx Docusate Sodium [Colace CAP] 100 mg PO BID PRN #60 cap 10/11/20 10/25/20 Unknown Rx Doxazosin [Cardura] 4 mg PO QDAY #30 10/11/20 10/25/20 Unknown Rx Febuxostat 40 mg PO QDAY #30 10/11/20 10/25/20 Unknown Rx Ketotifen Fumarate 1 drop OU QDAY #1 bottle 10/11/20 10/25/20 Unknown Rx Lansoprazole Solutab [Prevacid 30 mg FEEDTUBE BID #60 tab.rapdis 10/11/20 10/25/20 Unknown Rx Solutab] Megestrol Acetate 40 mg PO QDAY #30 10/11/20 10/25/20 Unknown Rx Metoprolol [Lopressor TAB] 12.5 mg PO BID #60 tablet 10/11/20 10/25/20 Unknown Rx calcitrioL [Rocaltrol] 1 mcg PO QDAY #30 cap 10/11/20 10/25/20 Unknown Rx timoloL maleate [Timolol Maleate 1 drop OP BID #1 bottle 10/11/20 10/25/20 Unknown Rx 0.25%] Active Meds: Active Medications Acetaminophen (Acetaminophen 325 Mg Tab) 650 mg PO Q4H PRN PRN Reason: Pain MILD(1-3)/Fever >100.5/ABEL Albuterol (Albuterol 2.5 Mg/3 Ml Nebu) 2.5 mg IH Q4HRT PRN PRN Reason: Shortness Of Breath Lipase/Protease/Amylase (Lipase 10,500/Protease 25,000/Amylase 43,750 (Units) Dr Raoul) 1 each FEEDTUBE PRN PRN PRN Reason: For Clogged Feeding Tube Atorvastatin Calcium (Atorvastatin 40 Mg Tab) 40 mg PO QHS [facility] Last Admin: 01/12/21 23:19 Dose: 40 mg Documented by: Buprenorphine HCl (Buprenorphine 2 Mg Tab Subl) 2 mg SL QDAY PRN PRN Reason: Pain , Severe (7-10) Calcitriol (Calcitriol 0.5 Mcg Cap) 1 mcg PO QDAY [facility] Last Admin: 01/13/21 10:17 Dose: 1 mcg Documented by: Docusate Sodium (Docusate Sodium 100 Mg Cap) 100 mg PO BID PRN PRN Reason: Constipation Doxazosin Mesylate (Doxazosin 4 Mg Tab) 4 mg PO QDAY [facility] Last Admin: 01/13/21 10:17 Dose: 4 mg Documented by: Hydralazine HCl (Hydralazine 20 Mg/1 Ml Inj) 5 mg IV Q4H PRN PRN Reason: Hypertension Last Admin: 01/13/21 05:33 Dose: 5 mg Documented by: Hydromorphone HCl (Hydromorphone 1 Mg/1 Ml Inj) 0.5 mg IV Q12H PRN PRN Reason: Pain , Severe (7-10) Lansoprazole (Lansoprazole 30 Mg Solutab) 30 mg FEEDTUBE BID [facility] Last Admin: 01/13/21 10:17 Dose: 30 mg Documented by: Levetiracetam (Levetiracetam 500 Mg/5 Ml Oral Liqd) 500 mg PO BID [facility] Last Admin: 01/13/21 10:16 Dose: 500 mg Documented by: Linagliptin (Linagliptin 5 Mg Tab) 5 mg PO QDDIAB [facility] Last Admin: 01/13/21 12:29 Dose: Not Given Documented by: Megestrol Acetate (Megestrol 40 Mg Tab) 40 mg PO QDAY [facility] Last Admin: 01/13/21 10:22 Dose: 40 mg Documented by: Metoprolol Tartrate (Metoprolol Tartrate 25 Mg Tab) 12.5 mg PO BID [facility] Last Admin: 01/13/21 10:17 Dose: 12.5 mg Documented by: Miscellaneous Medication (Febuxostat [Febuxostat]) 40 mg PO QDAY [facility] Miscellaneous Medication (Ketotifen Fumarate [Ketotifen Fumarate]) 1 drop OU QDAY [facility] Miscellaneous Medication (Timolol Maleate [Timolol Maleate 0.25%]) 1 drop OP BID [facility] Ondansetron HCl (Ondansetron 4 Mg/2 Ml Inj) 4 mg IV Q8H PRN PRN Reason: Nausea And Vomiting Oxycodone/Acetaminophen (Oxycodone /Acetaminophen 5-325mg Tab) 1 tab PO Q12H PRN PRN Reason: Pain, Moderate (4-6) Sevelamer Carbonate (Sevelamer Carbonate 800 Mg Tab) 800 mg PO TIDWM [facility] Last Admin: 01/13/21 10:17 Dose: 800 mg Documented by: Simple Syrup (Simple Syrup 15 Ml) 15 ml FEEDTUBE PRN PRN PRN Reason: Hypoglycemia Simple Syrup (Simple Syrup 15 Ml) 30 ml FEEDTUBE PRN PRN PRN Reason: Hypoglycemia Sodium Bicarbonate (Sodium Bicarbonate 325 Mg Tab) 325 mg FEEDTUBE PRN PRN PRN Reason: For Clogged Feeding Tube Sodium Chloride (Sodium Chloride 0.9% 10 Ml Flush Syringe) 10 ml IV BID [facility] Last Admin: 01/13/21 10:18 Dose: 10 ml Documented by: Sodium Chloride (Sodium Chloride 0.9% 10 Ml Flush Syringe) 10 ml IV PRN PRN PRN Reason: LINE FLUSH Review of Systems ROS unobtainable: due to mental status Exam - Vital Signs Vital signs: Vital Signs Pulse Ox 76 L 01/12/21 14:14 Results - Lab Results 01/12/21 14:36 01/13/21 05:19 Most recent lab results Calcium 9.0 mg/dL (8.4-10.2) 01/13/21 05:19 Assessment and Plan 1.ESRD: Patient is on maintenance hemodialysis three times a week, TTS schedule. Last outpatient HD 01/12/2021. Meds dosage based on GFR. Hemodialysis: . 2. FEN: Mild Hyponatremia, monitor. Monitor lytes and volume status. 3. New onset of possible witnessed seizure during dialysis: CT brain is remarkable for white matter changes. Keppra 500 mg IV MRI brain and EEG. Seizure precaution. Followed by Neuro. 4. Advanced dementia: CT white matter changes. 5. Failure to thrive: S/p PEG tube. 6. Anemia, POA: Epogen with HD. 7. DM type 2. Subjective: Patient was seen and examined at the bedside. Examination: General appearance: well-developed, appears stated age, no distress HEENT: ATNC, CELINA Neck: Trachea midline Respiratory: ctab Cardiology: regular, S1S2, no murmur Abdomen: soft, not tender, BS heard, Peg tube noted Integumentary: warm, dry, no obvious rash Neurologic: stuporous Ext: no edema noted Hemodialysis catheter: R IJ tunnel catheter
--- NOTE | 2021-01-14 08:26 | Progress Note ---
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 Patient was started on IV Keppra. Patient has had no new seizure activity. New onset seizure disorder. Vascular dementia Cerebral atherosclerosis ESRD 01/13/2021. Seizure precautions. Continue IV Keppra and await neurology eval uation. Check EEG and MRI. CT scan negative. Continue hemodialysis per nephrology recommendations. 01/14/2021. Patient is somnolent and lethargic. However, no new seizure activity noted. CT brain is remarkable for white matter changes. Continue seizure precautions. Follow-up EEG and MRI brain. Neurology decrease Keppra to 250 mg twice daily. Ativan as needed for seizure. Continue hemodialysis per nephrology recommendations. History Interval history: No new seizures since admission Hospitalist Physical - Constitutional Vitals: Temp Pulse Resp BP Pulse Ox 97.5 F L 66 16 143/90 97 01/14/21 04:25 01/14/21 04:25 01/14/21 04:25 01/14/21 04:25 01/14/21 04:25 General appearance: Present: no acute distress - EENT Eyes: Present: PERRL, EOM intact ENT: hearing intact, clear oral mucosa, dentition normal - Neck Neck: Present: supple, normal ROM - Respiratory Respiratory effort: normal Respiratory: bilateral: CTA - Cardiovascular Rhythm: regular Heart Sounds: Present: S1 & S2. Absent: gallop, rub - Extremities Extremities: no ischemia, No edema, Full ROM - Abdominal General gastrointestinal: soft, non-tender, non-distended, normal bowel sounds - Integumentary Integumentary: Present: clear, warm, dry - Neurologic Neurologic: CNII-XII intact, moves all extremities Results - Labs CBC & Chem 7: 01/12/21 14:36 01/13/21 05:19 Labs: Laboratory Last Values WBC 11.2 K/mm3 (4.5-11.0) H 01/12/21 14:36 RBC 4.57 M/mm3 (3.65-5.03) 01/12/21 14:36 Hgb 12.3 gm/dl (11.8-15.2) 01/12/21 14:36 Hct 39.0 % (35.5-45.6) 01/12/21 14:36 MCV 85 fl (84-94) 01/12/21 14:36 MCH 27 pg (28-32) L 01/12/21 14:36 MCHC 32 % (32-34) 01/12/21 14:36 RDW 21.0 % (13.2-15.2) H 01/12/21 14:36 Plt Count 156 K/mm3 (140-440) 01/12/21 14:36 Lymph % (Auto) 14.4 % (13.4-35.0) 01/12/21 14:36 [place] % (Auto) 5.0 % (0.0-7.3) 01/12/21 14:36 Eos % (Auto) 0.4 % (0.0-4.3) 01/12/21 14:36 Baso % (Auto) 0.6 % (0.0-1.8) 01/12/21 14:36 Lymph # (Auto) 1.6 K/mm3 (1.2-5.4) 01/12/21 14:36 Fountain # (Auto) 0.6 K/mm3 (0.0-0.8) 01/12/21 14:36 Eos # (Auto) 0.0 K/mm3 (0.0-0.4) 01/12/21 14:36 Baso # (Auto) 0.1 K/mm3 (0.0-0.1) 01/12/21 14:36 Seg Neutrophils % 79.6 % (40.0-70.0) H 01/12/21 14:36 Seg Neutrophils # 8.9 K/mm3 (1.8-7.7) H 01/12/21 14:36 Sodium 134 mmol/L (137-145) L 01/13/21 05:19 Potassium 3.9 mmol/L (3.6-5.0) 01/13/21 05:19 Chloride 95.5 mmol/L (98-107) L 01/13/21 05:19 Carbon Dioxide 22 mmol/L (22-30) 01/13/21 05:19 Anion Gap 20 mmol/L 01/13/21 05:19 BUN 23 mg/dL (9-20) H 01/13/21 05:19 Creatinine 2.6 mg/dL (0.8-1.3) H 01/13/21 05:19 Estimated GFR 29 ml/min 01/13/21 05:19 BUN/Creatinine Ratio 9 % 01/13/21 05:19 Glucose 168 mg/dL (75-100) H 01/13/21 05:19 POC Glucose 236 mg/dL (70-105) H 01/14/21 06:31 Calcium 9.0 mg/dL (8.4-10.2) 01/13/21 05:19 Total Bilirubin 0.30 mg/dL (0.1-1.2) 01/13/21 05:19 Direct Bilirubin < 0.2 mg/dL (0-0.2) 01/12/21 14:36 Indirect Bilirubin 0.1 mg/dL 01/12/21 14:36 AST 27 units/L (5-40) 01/13/21 05:19 ALT 10 units/L (7-56) 01/13/21 05:19 Alkaline Phosphatase 72 units/L (35-129) 01/13/21 05:19 Total Protein 5.8 g/dL (6.3-8.2) L 01/13/21 05:19 Albumin 3.3 g/dL (3.9-5) L 01/13/21 05:19 Albumin/Globulin Ratio 1.3 % 01/13/21 05:19 Nasal Screen MRSA (PCR) Positive (Negative) 01/13/21 Unknown Brewer/IV: Voiding Method Incontinent Active Medications - Current Medications Current Medications: Generic Name Dose Route Start Last Admin Trade Name Freq PRN Reason Stop Dose Admin Acetaminophen 650 mg 01/12/21 19:30 Acetaminophen 325 Mg Tab PO Q4H PRN Pain MILD(1-3)/Fever >100.5/ABEL Albuterol 2.5 mg 01/12/21 19:30 Albuterol 2.5 Mg/3 Ml Nebu IH Q4HRT PRN Shortness Of Breath Lipase/Protease/Amylase 1 each 01/13/21 10:11 Lipase 10,500/Protease 25,000/Amylase 43,750 (Units) Dr Silveira FEEDTUBE PRN PRN For Clogged Feeding Tube Atorvastatin Calcium 40 mg 01/12/21 22:00 01/13/21 22:57 Atorvastatin 40 Mg Tab PO 40 mg QHS NOLAN Administration Buprenorphine HCl 2 mg 01/12/21 18:54 Buprenorphine 2 Mg Tab Subl SL QDAY PRN Pain , Severe (7-10) Calcitriol 1 mcg 01/13/21 10:00 01/13/21 10:17 Calcitriol 0.5 Mcg Cap PO 1 mcg QDAY NOLAN Administration Docusate Sodium 100 mg 01/12/21 18:54 Docusate Sodium 100 Mg Cap PO BID PRN Constipation Doxazosin Mesylate 4 mg 01/13/21 10:00 01/13/21 10:17 Doxazosin 4 Mg Tab PO 4 mg QDAY NOLAN Administration Hydralazine HCl 5 mg 01/13/21 05:21 01/13/21 05:33 Hydralazine 20 Mg/1 Ml Inj IV 5 mg Q4H PRN Administration Hypertension Hydromorphone HCl 0.5 mg 01/12/21 19:30 Hydromorphone 1 Mg/1 Ml Inj IV Q12H PRN Pain , Severe (7-10) Lansoprazole 30 mg 01/12/21 22:00 01/13/21 22:57 Lansoprazole 30 Mg Solutab FEEDTUBE 30 mg BID NOLAN Administration Levetiracetam 250 mg 01/13/21 14:30 01/13/21 22:57 Levetiracetam 500 Mg/5 Ml Oral Liqd PO 250 mg BID NOLAN Administration Linagliptin 5 mg 01/13/21 11:00 01/13/21 12:29 Linagliptin 5 Mg Tab PO Not Given QDDIAB NLOAN Megestrol Acetate 40 mg 01/13/21 10:00 01/13/21 10:22 Megestrol 40 Mg Tab PO 40 mg QDAY NOLAN Administration Metoprolol Tartrate 12.5 mg 01/12/21 22:00 01/13/21 22:57 Metoprolol Tartrate 25 Mg Tab PO 12.5 mg BID NOLAN Administration Miscellaneous Medication 40 mg 01/13/21 10:00 Febuxostat [Febuxostat] PO QDAY NOLAN Miscellaneous Medication 1 drop 01/13/21 10:00 Ketotifen Fumarate [Ketotifen Fumarate] OU QDAY NOLAN Miscellaneous Medication 1 drop 01/12/21 22:00 Timolol Maleate [Timolol Maleate 0.25%] OP BID NOLAN Ondansetron HCl 4 mg 01/12/21 19:30 Ondansetron 4 Mg/2 Ml Inj IV Q8H PRN Nausea And Vomiting Oxycodone/Acetaminophen 1 tab 01/12/21 19:30 Oxycodone /Acetaminophen 5-325mg Tab PO Q12H PRN Pain, Moderate (4-6) Sevelamer Carbonate 800 mg 01/13/21 08:00 01/13/21 17:44 Sevelamer Carbonate 800 Mg Tab PO 800 mg TIDWM NOLAN Administration Simple Syrup 15 ml 01/13/21 10:11 Simple Syrup 15 Ml FEEDTUBE PRN PRN Hypoglycemia Simple Syrup 30 ml 01/13/21 10:11 Simple Syrup 15 Ml FEEDTUBE PRN PRN Hypoglycemia Sodium Bicarbonate 325 mg 01/13/21 10:11 Sodium Bicarbonate 325 Mg Tab FEEDTUBE PRN PRN For Clogged Feeding Tube Sodium Chloride 10 ml 01/12/21 22:00 01/13/21 22:58 Sodium Chloride 0.9% 10 Ml Flush Syringe IV 10 ml BID NOLAN Administration Sodium Chloride 10 ml 01/12/21 19:30 Sodium Chloride 0.9% 10 Ml Flush Syringe IV PRN PRN LINE FLUSH Nutrition/Malnutrition Assess - Dietary Evaluation Nutrition/Malnutrition Findings: Nutrition Notes Start: 01/13/21 10:03 Freq: Status: Active Protocol: Document 01/13/21 10:03 MIGNON (Rec: 01/13/21 10:11 [id number]) Nutrition Notes Need for Assessment 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 RN screen for TF, skin risk, chewing difficulty and MST. Unable to wake pt. Per family, pt has not been eating well so a PEG was placed. Pt has sacral wound. Burn Absent Difficulty In Swallowing,Chewing Current % PO Negligible Minimum of two criteria No Muscle Mass Mild Depletion (non-severe) #2 Nutrition Diagnosis Increased nutrient needs ( specify in comment below) Comments: protein Etiology wound healing As Evidenced by Signs and Symptoms pt with sacral wound #1 Nutrition Diagnosis Inadequate oral intake Etiology advanced age, dementia As Evidenced by Signs and Symptoms pt not eating, PEG Is patient on ventilator? No Is Patient Ambulatory and/or Out of Bed No REE-([facility]-confined to bed) [phone] Calculation Used for Recommendations [facility] Additional Notes Protein: (>1.25g/kg) greater than 71g Fluid: 1ml/kcal or per MD Nutrition Intervention Change Diet Order: Start TF Nutrition Support: Nepro 1.8 at 38 ml/hr Flush 150 ml q4h Kcal 1,642 Protein (gm) 74 Fluid (mL) 611 Goal #1 Meet at least 75% of protein and energy needs via TF Goal #2 Wound healing Goal #3 Wt gain/maintenance Anticipated Discharge Needs: Nepro 1.8 at 38 ml/hr Flush 150 ml q4h Follow-Up By: 01/15/21 Additional Comments FU for TF start and tolerance
[2021-01-14 09:32] LABS: Basophils % (Auto) 0.1 % (0.0-1.8); Hematocrit 34.5 % (35.5-45.6); Hemoglobin 11.3 gm/dl (11.8-15.2); Lymphocytes # (Auto) 0.8 K/mm3 (1.2-5.4); Lymphocytes % (Auto) 6.4 % (13.4-35.0); Mean Corpuscular HGB Conc 33 % (32-34); Mean Corpuscular Volume 84 fl (84-94); Monocytes # (Auto) 0.7 K/mm3 (0.0-0.8); Monocytes % (Auto) 6.1 % (0.0-7.3); Platelet Count 153 K/mm3 (140-440); Red Blood Count 4.12 M/mm3 (3.65-5.03)
[2021-01-14 09:38] LABS: Red Cell Distribution Width 20.6 % (13.2-15.2)
[2021-01-14 09:51] LABS: Calcium 8.5 mg/dL (8.4-10.2)
[2021-01-14] MEDS: MEGESTROL 40 MG TAB PO SCH (10:56)
[2021-01-14] MEDS: CALCITRIOL 0.5 MCG CAP PO SCH (10:56)
[2021-01-14] MEDS: levETIRAcetam 500 MG/5 ML ORAL LIQD PO SCH ×2 (10:56→21:20)
[2021-01-14] MEDS: SEVELAMER CARBONATE 800 MG TAB PO SCH ×3 (10:56→17:51)
[2021-01-14] MEDS: LANSOPRAZOLE 30 MG SOLUTAB FEEDTUBE SCH ×2 (10:56→21:20)
[2021-01-14] MEDS: METOPROLOL TARTRATE 25 MG TAB PO SCH ×2 (10:57→21:19)
[2021-01-14] MEDS: DOXAZOSIN 4 MG TAB PO SCH (10:58)
[2021-01-14] MEDS: LINAGLIPTIN 5 MG TAB PO SCH (11:07)
--- NOTE | 2021-01-14 11:40 | Progress Note ---
Assessment and Plan Assessment and Plan # New onset of possible witnessed seizure during dialysis yesterday -CT brain is remarkable for white matter changes -Keppra 500 mg IV -MRI brain is pending -EEG today ? consider adding Vimpat or valproic acid as needed -Seizure precaution -Cut down keppra to 250 mg bid -Ativan prn for seizure -Seizure precaution -R/O underlying infection. # Advanced dementia -Ct white matter changes -truncal rigidity -? base line # End stage renal disease /.6 -Nephrology team consulted in ED, -dialysis as per renal team, -avoid nephrotoxic agents. # DVT prophylaxis -SCD to bilateral lower extremities while in bed, prophylactic anticoagulation # Advance care planning -Disease education conducted, care plan discussed, diagnoses discussed, prognosis discussed, patient is full code. Patient family knowledge unders tanding agree with care plan, +30 minutes. will follow Subjective Date of service: 01/14/21 Principal diagnosis: witnessed seizure hx of ESRD ,hyponatremia Interval history: slightly more awake today but is starring in space eyes at time is deviated to left pupil constrictive reactive difficult to assess weakness Objective - Vital Sign Vital Signs - 12hr 01/14/21 01/14/21 01/14/21 04:00 04:18 04:25 Temperature 98.8 F 97.5 F L Pulse Rate 93 H 95 H 66 Respiratory 24 16 Rate Blood Pressure 149/82 143/90 O2 Sat by Pulse 100 97 Oximetry 01/14/21 01/14/21 08:37 08:53 Temperature 98.4 F Pulse Rate 106 H Respiratory 20 Rate Blood Pressure 169/78 O2 Sat by Pulse 98 100 Oximetry - General Apperance Constitutional: other (starring and mumble no speech out put not follow command ) - EENT EENT: PERRL, mucous membranes dry - Respiratory Respiratory: chest non-tender, lungs clear, rhonchi - Cardiovascular Cardiovascular: regular rate, normal S1, normal S2 Extremities: no peripheral edema bilat, no clubbing, cyanosis - Gastrointestinal Gastrointestinal: normoactive bowel sounds - Neurologic Cranial nerve examination: anosmic, PERRL, EOMI, intact Speech examination: intact, other (mumble not follow command) Detailed motor examination: other (move all limbs slightly difficult to assess weakness) - Laboratory Findings CBC and BMP: 01/14/21 08:57 01/14/21 08:57 Abnormal Lab Findings: Abnormal Labs 01/12/21 01/12/21 01/12/21 14:12 14:36 14:36 WBC 11.2 H Hgb Hct MCH 27 L RDW 21.0 H Lymph % (Auto) Lymph # (Auto) Seg Neutrophils % 79.6 H Seg Neutrophils # 8.9 H Sodium 136 L Chloride 95.8 L Carbon Dioxide 19 L BUN Creatinine 2.0 H Glucose 163 H POC Glucose 166 H Calcium 8.2 L Total Protein 5.4 L Albumin 3.4 L 01/13/21 01/13/21 01/13/21 05:19 12:14 16:16 WBC Hgb Hct MCH RDW Lymph % (Auto) Lymph # (Auto) Seg Neutrophils % Seg Neutrophils # Sodium 134 L Chloride 95.5 L Carbon Dioxide BUN 23 H Creatinine 2.6 H Glucose 168 H POC Glucose 142 H 163 H Calcium Total Protein 5.8 L Albumin 3.3 L 01/13/21 01/13/21 01/14/21 20:22 23:57 06:31 WBC Hgb Hct MCH RDW Lymph % (Auto) Lymph # (Auto) Seg Neutrophils % Seg Neutrophils # Sodium Chloride Carbon Dioxide BUN Creatinine Glucose POC Glucose 209 H 189 H 236 H Calcium Total Protein Albumin 01/14/21 01/14/21 08:57 08:57 WBC 12.0 H Hgb 11.3 L Hct 34.5 L MCH RDW 20.6 H Lymph % (Auto) 6.4 L Lymph # (Auto) 0.8 L Seg Neutrophils % 87.4 H Seg Neutrophils # 10.5 H Sodium 131 L Chloride 93.7 L Carbon Dioxide BUN 37 H Creatinine 3.7 H Glucose 261 H POC Glucose Calcium Total Protein Albumin
--- NOTE | 2021-01-14 12:36 | Progress Note ---
Assessment and Plan 1.ESRD: Patient is on maintenance hemodialysis three times a week, TTS schedule. Last outpatient HD 01/12/2021. Meds dosage based on GFR. Hemodialysis: . 2. FEN: Mild Hyponatremia, monitor. Monitor lytes and volume status. 3. New onset of possible witnessed seizure during dialysis: CT brain is remarkable for white matter changes. Valproate. S/p Keppra 500 mg IV MRI brain: small SDH, chronic changes. Seizure precaution. Followed by Neuro. 4. Advanced dementia: CT white matter changes. 5. Failure to thrive: PEG tube. 6. Anemia, POA: Epogen with HD. 7. DM type 2. Subjective: Patient was seen and examined at the bedside. Examination: General appearance: well-developed, appears stated age, no distress HEENT: ATNC, CELINA Neck: Trachea midline Respiratory: ctab Cardiology: regular, S1S2, no murmur Abdomen: soft, not tender, BS heard, Peg tube noted Integumentary: warm, dry, no obvious rash Neurologic: stuporous Ext: no edema noted Hemodialysis catheter: R IJ tunnel catheter Subjective Date of service: 01/14/21 Principal diagnosis: witnessed seizure hx of ESRD ,hyponatremia Objective - Vital Signs Vital signs: Vital Signs - 12hr 01/14/21 01/14/21 01/14/21 04:00 04:18 04:25 Temperature 98.8 F 97.5 F L Pulse Rate 93 H 95 H 66 Respiratory 24 16 Rate Blood Pressure 149/82 143/90 O2 Sat by Pulse 100 97 Oximetry 01/14/21 01/14/21 08:37 08:53 Temperature 98.4 F Pulse Rate 106 H Respiratory 20 Rate Blood Pressure 169/78 O2 Sat by Pulse 98 100 Oximetry - Lab 01/14/21 08:57 01/14/21 08:57 Most recent lab results Calcium 8.5 mg/dL (8.4-10.2) 01/14/21 08:57 Medications & Allergies - Medications Allergies/Adverse Reactions: Allergies No Known Allergies Allergy (Verified 08/14/19 16:11) Home Medications: Home Medications Medication Instructions Recorded Confirmed Last Taken Type Alogliptin Benzoate [Alogliptin] 1 tab PO DAILY 10/02/20 10/25/20 Unknown History Sevelamer Carbonate [Renvela] 800 mg PO TIDWM 10/02/20 10/25/20 Unknown History buprenorphine hcl [Subutex] 2 mg SL QDAY PRN 10/02/20 10/25/20 Unknown History AtorvaSTATin [Lipitor] 40 mg PO QHS #30 10/11/20 10/25/20 Unknown Rx Docusate Sodium [Colace CAP] 100 mg PO BID PRN #60 cap 10/11/20 10/25/20 Unknown Rx Doxazosin [Cardura] 4 mg PO QDAY #30 10/11/20 10/25/20 Unknown Rx Febuxostat 40 mg PO QDAY #30 10/11/20 10/25/20 Unknown Rx Ketotifen Fumarate 1 drop OU QDAY #1 bottle 10/11/20 10/25/20 Unknown Rx Lansoprazole Solutab [Prevacid 30 mg FEEDTUBE BID #60 tab.rapdis 10/11/20 10/25/20 Unknown Rx Solutab] Megestrol Acetate 40 mg PO QDAY #30 10/11/20 10/25/20 Unknown Rx Metoprolol [Lopressor TAB] 12.5 mg PO BID #60 tablet 10/11/20 10/25/20 Unknown Rx calcitrioL [Rocaltrol] 1 mcg PO QDAY #30 cap 10/11/20 10/25/20 Unknown Rx timoloL maleate [Timolol Maleate 1 drop OP BID #1 bottle 10/11/20 10/25/20 Unknown Rx 0.25%] Active Medications: Generic Name Dose Route Start Last Admin Trade Name Freq PRN Reason Stop Dose Admin Acetaminophen 650 mg 01/12/21 19:30 Acetaminophen 325 Mg Tab PO Q4H PRN Pain MILD(1-3)/Fever >100.5/ABEL Albuterol 2.5 mg 01/12/21 19:30 Albuterol 2.5 Mg/3 Ml Nebu IH Q4HRT PRN Shortness Of Breath Lipase/Protease/Amylase 1 each 01/13/21 10:11 Lipase 10,500/Protease 25,000/Amylase 43,750 (Units) Dr Silveira FEEDTUBE PRN PRN For Clogged Feeding Tube Atorvastatin Calcium 40 mg 01/12/21 22:00 01/13/21 22:57 Atorvastatin 40 Mg Tab PO 40 mg QHS NOLAN Administration Buprenorphine HCl 2 mg 01/12/21 18:54 Buprenorphine 2 Mg Tab Subl SL QDAY PRN Pain , Severe (7-10) Calcitriol 1 mcg 01/13/21 10:00 01/14/21 10:56 Calcitriol 0.5 Mcg Cap PO 1 mcg QDAY NOLAN Administration Docusate Sodium 100 mg 01/12/21 18:54 Docusate Sodium 100 Mg Cap PO BID PRN Constipation Doxazosin Mesylate 4 mg 01/13/21 10:00 01/14/21 10:58 Doxazosin 4 Mg Tab PO 4 mg QDAY NOLAN Administration Hydralazine HCl 5 mg 01/13/21 05:21 01/13/21 05:33 Hydralazine 20 Mg/1 Ml Inj IV 5 mg Q4H PRN Administration Hypertension Hydromorphone HCl 0.5 mg 01/12/21 19:30 Hydromorphone 1 Mg/1 Ml Inj IV Q12H PRN Pain , Severe (7-10) Lansoprazole 30 mg 01/12/21 22:00 01/14/21 10:56 Lansoprazole 30 Mg Solutab FEEDTUBE 30 mg BID NOLAN Administration Levetiracetam 250 mg 01/13/21 14:30 01/14/21 10:56 Levetiracetam 500 Mg/5 Ml Oral Liqd PO 250 mg BID NOLAN Administration Linagliptin 5 mg 01/13/21 11:00 01/14/21 11:07 Linagliptin 5 Mg Tab PO 5 mg QDDIAB NOLAN Administration Megestrol Acetate 40 mg 01/13/21 10:00 01/14/21 10:56 Megestrol 40 Mg Tab PO 40 mg QDAY NOLAN Administration Metoprolol Tartrate 12.5 mg 01/12/21 22:00 01/14/21 10:57 Metoprolol Tartrate 25 Mg Tab PO 12.5 mg BID NOLAN Administration Miscellaneous Medication 40 mg 01/13/21 10:00 Febuxostat [Febuxostat] PO QDAY NOLAN Miscellaneous Medication 1 drop 01/13/21 10:00 Ketotifen Fumarate [Ketotifen Fumarate] OU QDAY NOLAN Miscellaneous Medication 1 drop 01/12/21 22:00 Timolol Maleate [Timolol Maleate 0.25%] OP BID NOLAN Ondansetron HCl 4 mg 01/12/21 19:30 Ondansetron 4 Mg/2 Ml Inj IV Q8H PRN Nausea And Vomiting Oxycodone/Acetaminophen 1 tab 01/12/21 19:30 Oxycodone /Acetaminophen 5-325mg Tab PO Q12H PRN Pain, Moderate (4-6) Sevelamer Carbonate 800 mg 01/13/21 08:00 01/14/21 10:56 Sevelamer Carbonate 800 Mg Tab PO 800 mg TIDWM NOLAN Administration Simple Syrup 15 ml 01/13/21 10:11 Simple Syrup 15 Ml FEEDTUBE PRN PRN Hypoglycemia Simple Syrup 30 ml 01/13/21 10:11 Simple Syrup 15 Ml FEEDTUBE PRN PRN Hypoglycemia Sodium Bicarbonate 325 mg 01/13/21 10:11 Sodium Bicarbonate 325 Mg Tab FEEDTUBE PRN PRN For Clogged Feeding Tube Sodium Chloride 10 ml 01/12/21 22:00 01/13/21 22:58 Sodium Chloride 0.9% 10 Ml Flush Syringe IV 10 ml BID NOLAN Administration Sodium Chloride 10 ml 01/12/21 19:30 Sodium Chloride 0.9% 10 Ml Flush Syringe IV PRN PRN LINE FLUSH
[2021-01-14] MEDS ORDERED: VALPROATE SODIUM 1,000 MG in SODIUM CHLORIDE 0.9% 100 ML IV ONE (14:53)
--- NOTE | 2021-01-14 17:54 | Electrocardiograph Report ---
[facility] Test Date: 2021-01-12 Test Time: 14:29:39 Pat Name: LINH CANNON Department: Room: A468 1 Gender: M [employer]: BINTA : 1940 Requested By: CLARICE LINDQUIST Order Number: [id number] Reading MD: Mere Michael Measurements Intervals [place] Rate: 109 P: CT: QRS: 10 QRSD: 123 T: 142 QT: 389 QTc: 525 Interpretive Statements Poor quality ECG with marked baseline artifact Atrial flutter with variable AV conduction Right bundle branch block Nonspecific T abnormalities, lateral leads Compared to ECG 10/02/2020 15:00:59 No significant change Electronically Signed On 01-14-2021 17:54:01 EDT by Mere Michael
--- NOTE | 2021-01-14 18:06 | Magnetic Resonance Report ---
. MR brain wo con INDICATION / CLINICAL INFORMATION: new sz. TECHNIQUE: Multiplanar, multisequence MR images of the brain were obtained. COMPARISON: 01/12/2021 CT head FINDINGS: INTRACRANIAL: Unchanged thin right lateral convexity subdural hematoma. Subdural blood products also seen layering along the tectorial membrane. There is no lifting the tympanic membrane visualized (sag ittal image 13 of series 5). No restricted diffusion. No hemorrhage. Ventricular caliber is normal. N o extra-axial collection. No mass. No herniation. Major intracranial vascular flow voids are preserv ed. Generalized atrophy. Confluent periventricular and centrum semiovale T2 white matter hyperintensi ties most consistent with sequela of chronic microvascular disease. ORBITS: No significant abnormality of visualized orbits. SINUSES / MASTOIDS: No significant abnormality of visualized sinuses and mastoid air cells. ADDITIONAL FINDINGS: None. IMPRESSION: 1. Unchanged thin right lateral convexity subdural hematoma. Small quantity of subdural blood product s seen layering along the tentorial membrane at the craniocervical junction. 2. Severe sequela of chronic microvascular disease. Signer Name: Major Urbina MD Signed: 01/14/2021 6:01 PM Workstation Name: [id number]
[2021-01-14] MEDS: VALPROATE SODIUM 500 MG in SODIUM CHLORIDE 0.9% 100 ML IV SCH (21:20)
[2021-01-15] MEDS: VALPROATE SODIUM 500 MG in SODIUM CHLORIDE 0.9% 100 ML IV SCH ×3 (05:41→21:06)
[2021-01-15 06:12] LABS: Basophils % (Auto) 0.1 % (0.0-1.8); Hematocrit 33.3 % (35.5-45.6); Lymphocytes # (Auto) 0.7 K/mm3 (1.2-5.4); Lymphocytes % (Auto) 6.3 % (13.4-35.0); Mean Corpuscular HGB Conc 33 % (32-34); Mean Corpuscular Volume 83 fl (84-94); Monocytes # (Auto) 0.6 K/mm3 (0.0-0.8); Monocytes % (Auto) 5.4 % (0.0-7.3); Platelet Count 166 K/mm3 (140-440); Red Blood Count 4.03 M/mm3 (3.65-5.03)
[2021-01-15 06:14] LABS: Red Cell Distribution Width 20.6 % (13.2-15.2)
[2021-01-15] MEDS ORDERED: SODIUM CHLORIDE 0.9% 100 ML IV PRN (08:00)
--- NOTE | 2021-01-15 08:51 | Progress Note ---
Assessment and Plan 1.ESRD: Patient is on maintenance hemodialysis three times a week, TTS schedule. Last outpatient HD 01/12/2021. Meds dosage based on GFR. Hemodialysis: 01/15. 2. FEN: Mild Hyponatremia, monitor. Monitor lytes and volume status. 3. New onset of possible witnessed seizure during dialysis: CT brain is remarkable for white matter changes. Valproate. S/p Keppra 500 mg IV MRI brain: small SDH, chronic changes. Seizure precaution. Followed by Neuro. 4. Advanced dementia: CT white matter changes. 5. Failure to thrive: PEG tube. 6. Anemia, POA: Epogen with HD. 7. DM type 2. Subjective: Patient was seen and examined at the bedside while on HD. Examination: General appearance: well-developed, appears stated age, no distress HEENT: ATNC, CELINA Neck: Trachea midline Respiratory: ctab Cardiology: regular, S1S2, no murmur Abdomen: soft, not tender, BS heard, Peg tube noted Integumentary: warm, dry, no obvious rash Neurologic: stuporous Ext: no edema noted Hemodialysis catheter: R IJ tunnel catheter Subjective Date of service: 01/15/21 Principal diagnosis: witnessed seizure hx of ESRD ,hyponatremia Objective - Vital Signs Vital signs: Vital Signs - 12hr 01/14/21 01/14/21 01/14/21 21:19 21:37 23:08 Temperature 98.7 F Pulse Rate 102 H 83 Pulse Rate [ From Monitor] Respiratory 20 Rate Blood Pressure 167/87 152/78 O2 Sat by Pulse 100 100 Oximetry 01/15/21 01/15/21 01/15/21 04:00 04:40 07:38 Temperature 98.6 F 97.5 F L Pulse Rate 87 98 H 95 H Pulse Rate [ From Monitor] Respiratory 20 20 Rate Blood Pressure 168/88 158/85 O2 Sat by Pulse 98 99 Oximetry 01/15/21 08:36 Temperature Pulse Rate Pulse Rate [ 78 From Monitor] Respiratory 17 Rate Blood Pressure O2 Sat by Pulse Oximetry - Lab 01/15/21 05:22 01/15/21 05:22 Most recent lab results Calcium 9.0 mg/dL (8.4-10.2) 01/15/21 05:22 Medications & Allergies - Medications Allergies/Adverse Reactions: Allergies No Known Allergies Allergy (Verified 08/14/19 16:11) Home Medications: Home Medications Medication Instructions Recorded Confirmed Last Taken Type Alogliptin Benzoate [Alogliptin] 1 tab PO DAILY 10/02/20 10/25/20 Unknown History Sevelamer Carbonate [Renvela] 800 mg PO TIDWM 10/02/20 10/25/20 Unknown History buprenorphine hcl [Subutex] 2 mg SL QDAY PRN 10/02/20 10/25/20 Unknown History AtorvaSTATin [Lipitor] 40 mg PO QHS #30 10/11/20 10/25/20 Unknown Rx Docusate Sodium [Colace CAP] 100 mg PO BID PRN #60 cap 10/11/20 10/25/20 Unknown Rx Doxazosin [Cardura] 4 mg PO QDAY #30 10/11/20 10/25/20 Unknown Rx Febuxostat 40 mg PO QDAY #30 10/11/20 10/25/20 Unknown Rx Ketotifen Fumarate 1 drop OU QDAY #1 bottle 10/11/20 10/25/20 Unknown Rx Lansoprazole Solutab [Prevacid 30 mg FEEDTUBE BID #60 tab.rapdis 10/11/20 10/25/20 Unknown Rx Solutab] Megestrol Acetate 40 mg PO QDAY #30 10/11/20 10/25/20 Unknown Rx Metoprolol [Lopressor TAB] 12.5 mg PO BID #60 tablet 10/11/20 10/25/20 Unknown Rx calcitrioL [Rocaltrol] 1 mcg PO QDAY #30 cap 10/11/20 10/25/20 Unknown Rx timoloL maleate [Timolol Maleate 1 drop OP BID #1 bottle 10/11/20 10/25/20 Unknown Rx 0.25%] Active Medications: Generic Name Dose Route Start Last Admin Trade Name Freq PRN Reason Stop Dose Admin Acetaminophen 650 mg 01/12/21 19:30 Acetaminophen 325 Mg Tab PO Q4H PRN Pain MILD(1-3)/Fever >100.5/ABEL Albuterol 2.5 mg 01/12/21 19:30 Albuterol 2.5 Mg/3 Ml Nebu IH Q4HRT PRN Shortness Of Breath Lipase/Protease/Amylase 1 each 01/13/21 10:11 Lipase 10,500/Protease 25,000/Amylase 43,750 (Units) Dr Cap FEEDTUBE PRN PRN For Clogged Feeding Tube Atorvastatin Calcium 40 mg 01/12/21 22:00 01/14/21 21:20 Atorvastatin 40 Mg Tab PO 40 mg QHS NOLAN Administration Buprenorphine HCl 2 mg 01/12/21 18:54 Buprenorphine 2 Mg Tab Subl SL QDAY PRN Pain , Severe (7-10) Calcitriol 1 mcg 01/13/21 10:00 01/14/21 10:56 Calcitriol 0.5 Mcg Cap PO 1 mcg QDAY NOLAN Administration Docusate Sodium 100 mg 01/12/21 18:54 Docusate Sodium 100 Mg Cap PO BID PRN Constipation Doxazosin Mesylate 4 mg 01/13/21 10:00 01/14/21 10:58 Doxazosin 4 Mg Tab PO 4 mg QDAY NOLAN Administration Hydralazine HCl 5 mg 01/13/21 05:21 01/13/21 05:33 Hydralazine 20 Mg/1 Ml Inj IV 5 mg Q4H PRN Administration Hypertension Hydromorphone HCl 0.5 mg 01/12/21 19:30 Hydromorphone 1 Mg/1 Ml Inj IV Q12H PRN Pain , Severe (7-10) Valproate Sodium 500 mg/ 105 mls @ 100 mls/hr 01/14/21 22:00 01/15/21 05:41 Sodium Chloride IV 100 mls/hr Q8H NOLAN Administration Sodium Chloride 100 mls @ 999 mls/hr 01/15/21 08:00 Nacl 0.9% IV DIONNA PRN Hypotension Lansoprazole 30 mg 01/12/21 22:00 01/14/21 21:20 Lansoprazole 30 Mg Solutab FEEDTUBE 30 mg BID NOLAN Administration Levetiracetam 250 mg 01/13/21 14:30 01/14/21 21:20 Levetiracetam 500 Mg/5 Ml Oral Liqd PO 250 mg BID NOLAN Administration Linagliptin 5 mg 01/13/21 11:00 01/14/21 11:07 Linagliptin 5 Mg Tab PO 5 mg QDDIAB NOLAN Administration Megestrol Acetate 40 mg 01/13/21 10:00 01/14/21 10:56 Megestrol 40 Mg Tab PO 40 mg QDAY NOLAN Administration Metoprolol Tartrate 12.5 mg 01/12/21 22:00 01/14/21 21:19 Metoprolol Tartrate 25 Mg Tab PO 12.5 mg BID NOLAN Administration Miscellaneous Medication 40 mg 01/13/21 10:00 Febuxostat [Febuxostat] PO QDAY [facility] Miscellaneous Medication 1 drop 01/13/21 10:00 Ketotifen Fumarate [Ketotifen Fumarate] OU QDAY NOLAN Miscellaneous Medication 1 drop 01/12/21 22:00 Timolol Maleate [Timolol Maleate 0.25%] OP BID [facility] Ondansetron HCl 4 mg 01/12/21 19:30 Ondansetron 4 Mg/2 Ml Inj IV Q8H PRN Nausea And Vomiting Oxycodone/Acetaminophen 1 tab 01/12/21 19:30 Oxycodone /Acetaminophen 5-325mg Tab PO Q12H PRN Pain, Moderate (4-6) Sevelamer Carbonate 800 mg 01/13/21 08:00 01/14/21 17:51 Sevelamer Carbonate 800 Mg Tab PO 800 mg TIDWM NOLAN Administration Simple Syrup 15 ml 01/13/21 10:11 Simple Syrup 15 Ml FEEDTUBE PRN PRN Hypoglycemia Simple Syrup 30 ml 01/13/21 10:11 Simple Syrup 15 Ml FEEDTUBE PRN PRN Hypoglycemia Sodium Bicarbonate 325 mg 01/13/21 10:11 Sodium Bicarbonate 325 Mg Tab FEEDTUBE PRN PRN For Clogged Feeding Tube Sodium Chloride 10 ml 01/12/21 22:00 01/14/21 21:21 Sodium Chloride 0.9% 10 Ml Flush Syringe IV 10 ml BID NOLAN Administration Sodium Chloride 10 ml 01/12/21 19:30 Sodium Chloride 0.9% 10 Ml Flush Syringe IV PRN PRN LINE FLUSH
[2021-01-15] MEDS: SEVELAMER CARBONATE 800 MG TAB PO SCH ×3 (08:54→18:17)
[2021-01-15 12:35] LABS: Hepatitis B Surface Antigen Non-Reactive (Negative); Hepatitis C Virus Antibody Non-Reactive (NonReactive)
[2021-01-15] MEDS: CALCITRIOL 0.5 MCG CAP PO SCH (12:54)
[2021-01-15] MEDS: DOXAZOSIN 4 MG TAB PO SCH (12:54)
[2021-01-15] MEDS: levETIRAcetam 500 MG/5 ML ORAL LIQD PO SCH (12:54)
[2021-01-15] MEDS: METOPROLOL TARTRATE 25 MG TAB PO SCH (12:55)
[2021-01-15] MEDS: LANSOPRAZOLE 30 MG SOLUTAB FEEDTUBE SCH ×2 (12:55→21:19)
[2021-01-15] MEDS: MEGESTROL 40 MG TAB PO SCH (12:56)
[2021-01-15] MEDS: LINAGLIPTIN 5 MG TAB PO SCH (12:56)
--- NOTE | 2021-01-15 14:05 | Progress Note ---
Assessment and Plan Assessment and plan: 80-year-old male who presents with new onset seizures New onset seizure disorder Continue Keppra CT of the brain noted, no signs of acute infarct MRI showing subacute to chronic subdural hematoma. 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 EEG reviewed and discussed with neurology. Patient could possibly be in status epilepticus. Neurology recommends patient be moved to the ICU, intubated, and placed on antiseizure medication via drip, wrote for fosphenytoin. Patient can be sedated on propofol per neurology. EEG will be repeated tomorrow. 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 I spoke with the family, answered all questions and indicated that the patient is going to be moved to the ICU. There are in agreement to the plan, and they also are in agreement to the patient being intubated to protect his airway. History Interval history: 01/13/2021. Seizure precautions. Continue IV Keppra and await neurology evalu ation. Check EEG and MRI. CT scan negative. Continue hemodialysis per nephrology recommendations. 01/14/2021. Patient is somnolent and lethargic. However, no new seizure activity noted. CT brain is remarkable for white matter changes. Continue seizure precautions. Follow-up EEG and MRI brain. Neurology decrease Keppra to 250 mg twice daily. Ativan as needed for seizure. Continue hemodialysis per nephrology recommendations. 01/15/2021: There is no overt seizure activity, however patient continues to be nonverbal. Patient seen after dialysis. Patient is not responsive to any verbal cues. Patient is moaning. Hospitalist Physical - Physical exam Narrative exam: General appearance: no acute distress, thin Respiratory: bilateral CTA, negative: rales, rhonchi, wheezing Cardiovascular: Regular rate/rhythm, Normal S1 & S2. No gallop, rub Extremities: no ischemia, No edema, normal temperature, normal color Abdominal: PEG tube, no leakage, soft, no tenderness, non-distended, normal bowel sounds Integumentary: Present: clear, warm, dry no wounds, no erythema noted Neurologic: Baseline lack of purposeful movements, patient with dysphonia and dysphagia - Constitutional Vitals: Temp Pulse Resp BP Pulse Ox 98.7 F 102 H 16 138/79 98 01/15/21 12:51 01/15/21 12:55 01/15/21 12:51 01/15/21 12:55 01/15/21 12:51 Results - Labs CBC & Chem 7: 01/15/21 05:22 01/15/21 05:22 Labs: Laboratory Last Values WBC 11.1 K/mm3 (4.5-11.0) H 01/15/21 05:22 RBC 4.03 M/mm3 (3.65-5.03) 01/15/21 05:22 Hgb 11.0 gm/dl (11.8-15.2) L 01/15/21 05:22 Hct 33.3 % (35.5-45.6) L 01/15/21 05:22 MCV 83 fl (84-94) L 01/15/21 05:22 MCH 27 pg (28-32) L 01/15/21 05:22 MCHC 33 % (32-34) 01/15/21 05:22 RDW 20.6 % (13.2-15.2) H 01/15/21 05:22 Plt Count 166 K/mm3 (140-440) 01/15/21 05:22 Lymph % (Auto) 6.3 % (13.4-35.0) L 01/15/21 05:22 Tate % (Auto) 5.4 % (0.0-7.3) 01/15/21 05:22 Eos % (Auto) 0.0 % (0.0-4.3) 01/15/21 05:22 Baso % (Auto) 0.1 % (0.0-1.8) 01/15/21 05:22 Lymph # (Auto) 0.7 K/mm3 (1.2-5.4) L 01/15/21 05:22 Tate # (Auto) 0.6 K/mm3 (0.0-0.8) 01/15/21 05:22 Eos # (Auto) 0.0 K/mm3 (0.0-0.4) 01/15/21 05:22 Baso # (Auto) 0.0 K/mm3 (0.0-0.1) 01/15/21 05:22 Seg Neutrophils % 88.2 % (40.0-70.0) H 01/15/21 05:22 Seg Neutrophils # 9.8 K/mm3 (1.8-7.7) H 01/15/21 05:22 Sodium 130 mmol/L (137-145) L 01/15/21 05:22 Potassium 3.7 mmol/L (3.6-5.0) 01/15/21 05:22 Chloride 92.0 mmol/L (98-107) L 01/15/21 05:22 Carbon Dioxide 26 mmol/L (22-30) 01/15/21 05:22 Anion Gap 16 mmol/L 01/15/21 05:22 BUN 49 mg/dL (9-20) H 01/15/21 05:22 Creatinine 4.2 mg/dL (0.8-1.3) H 01/15/21 05:22 Estimated GFR 17 ml/min 01/15/21 05:22 BUN/Creatinine Ratio 12 % 01/15/21 05:22 Glucose 241 mg/dL (75-100) H 01/15/21 05:22 POC Glucose 243 mg/dL (70-105) H 01/15/21 04:43 Calcium 9.0 mg/dL (8.4-10.2) 01/15/21 05:22 Total Bilirubin 0.30 mg/dL (0.1-1.2) 01/13/21 05:19 Direct Bilirubin < 0.2 mg/dL (0-0.2) 01/12/21 14:36 Indirect Bilirubin 0.1 mg/dL 01/12/21 14:36 AST 27 units/L (5-40) 01/13/21 05:19 ALT 10 units/L (7-56) 01/13/21 05:19 Alkaline Phosphatase 72 units/L (35-129) 01/13/21 05:19 Total Protein 5.8 g/dL (6.3-8.2) L 01/13/21 05:19 Albumin 3.3 g/dL (3.9-5) L 01/13/21 05:19 Albumin/Globulin Ratio 1.3 % 01/13/21 05:19 Nasal Screen MRSA (PCR) Positive (Negative) 01/13/21 Unknown Valproic Acid 45.9 ug/mL (50-100) L 01/15/21 08:56 Hepatitis A IgM Ab Non-reactive (NonReactive) 01/15/21 09:15 Hep Bs Antigen Non-reactive (Negative) 01/15/21 09:15 Hep B Core IgM Ab Non-reactive (NonReactive) 01/15/21 09:15 Hepatitis C Antibody Non-reactive (NonReactive) 01/15/21 09:15 Brewer/IV: Voiding Method Incontinent Active Medications - Current Medications Current Medications: Generic Name Dose Route Start Last Admin Trade Name Freq PRN Reason Stop Dose Admin Acetaminophen 650 mg 01/12/21 19:30 Acetaminophen 325 Mg Tab PO Q4H PRN Pain MILD(1-3)/Fever >100.5/ABEL Albuterol 2.5 mg 01/12/21 19:30 Albuterol 2.5 Mg/3 Ml Nebu IH Q4HRT PRN Shortness Of Breath Lipase/Protease/Amylase 1 each 01/13/21 10:11 Lipase 10,500/Protease 25,000/Amylase 43,750 (Units) Dr Silveira FEEDTUBE PRN PRN For Clogged Feeding Tube Atorvastatin Calcium 40 mg 01/12/21 22:00 01/14/21 21:20 Atorvastatin 40 Mg Tab PO 40 mg QHS NOLAN Administration Buprenorphine HCl 2 mg 01/12/21 18:54 Buprenorphine 2 Mg Tab Subl SL QDAY PRN Pain , Severe (7-10) Calcitriol 1 mcg 01/13/21 10:00 01/15/21 12:54 Calcitriol 0.5 Mcg Cap PO 1 mcg QDAY NOLAN Administration Docusate Sodium 100 mg 01/12/21 18:54 Docusate Sodium 100 Mg Cap PO BID PRN Constipation Doxazosin Mesylate 4 mg 01/13/21 10:00 01/15/21 12:54 Doxazosin 4 Mg Tab PO 4 mg QDAY NOLAN Administration Hydralazine HCl 5 mg 01/13/21 05:21 01/13/21 05:33 Hydralazine 20 Mg/1 Ml Inj IV 5 mg Q4H PRN Administration Hypertension Hydromorphone HCl 0.5 mg 01/12/21 19:30 01/15/21 10:04 Hydromorphone 1 Mg/1 Ml Inj IV 0.5 mg Q12H PRN Administration Pain , Severe (7-10) Valproate Sodium 500 mg/ 105 mls @ 100 mls/hr 01/14/21 22:00 01/15/21 13:56 Sodium Chloride IV 100 mls/hr Q8H NOLAN Administration Sodium Chloride 100 mls @ 999 mls/hr 01/15/21 08:00 Nacl 0.9% IV DIONNA PRN Hypotension Lansoprazole 30 mg 01/12/21 22:00 01/15/21 12:55 Lansoprazole 30 Mg Solutab FEEDTUBE 30 mg BID NOLAN Administration Levetiracetam 250 mg 01/13/21 14:30 01/15/21 12:54 Levetiracetam 500 Mg/5 Ml Oral Liqd PO 250 mg BID NOLAN Administration Linagliptin 5 mg 01/13/21 11:00 01/15/21 12:56 Linagliptin 5 Mg Tab PO 5 mg QDDIAB NOLAN Administration Megestrol Acetate 40 mg 01/13/21 10:00 01/15/21 12:56 Megestrol 40 Mg Tab PO 40 mg QDAY NOLAN Administration Metoprolol Tartrate 12.5 mg 01/12/21 22:00 01/15/21 12:55 Metoprolol Tartrate 25 Mg Tab PO 12.5 mg BID NOLAN Administration Miscellaneous Medication 40 mg 01/13/21 10:00 Febuxostat [Febuxostat] PO QDAY [facility] Miscellaneous Medication 1 drop 01/13/21 10:00 Ketotifen Fumarate [Ketotifen Fumarate] OU QDAY [facility] Miscellaneous Medication 1 drop 01/12/21 22:00 Timolol Maleate [Timolol Maleate 0.25%] OP BID NOLAN Ondansetron HCl 4 mg 01/12/21 19:30 Ondansetron 4 Mg/2 Ml Inj IV Q8H PRN Nausea And Vomiting Oxycodone/Acetaminophen 1 tab 01/12/21 19:30 Oxycodone /Acetaminophen 5-325mg Tab PO Q12H PRN Pain, Moderate (4-6) Sevelamer Carbonate 800 mg 01/13/21 08:00 01/15/21 12:54 Sevelamer Carbonate 800 Mg Tab PO 800 mg TIDWM NOLAN Administration Simple Syrup 15 ml 01/13/21 10:11 Simple Syrup 15 Ml FEEDTUBE PRN PRN Hypoglycemia Simple Syrup 30 ml 01/13/21 10:11 Simple Syrup 15 Ml FEEDTUBE PRN PRN Hypoglycemia Sodium Bicarbonate 325 mg 01/13/21 10:11 Sodium Bicarbonate 325 Mg Tab FEEDTUBE PRN PRN For Clogged Feeding Tube Sodium Chloride 10 ml 01/12/21 22:00 01/15/21 12:56 Sodium Chloride 0.9% 10 Ml Flush Syringe IV 10 ml BID NOLAN Administration Sodium Chloride 10 ml 01/12/21 19:30 Sodium Chloride 0.9% 10 Ml Flush Syringe IV PRN PRN LINE FLUSH Nutrition/Malnutrition Assess - Dietary Evaluation Nutrition/Malnutrition Findings: Nutrition Notes Start: 01/13/21 10:03 Freq: Status: Active Protocol: Document 01/13/21 10:03 MIGNON (Rec: 01/13/21 10:11 [id number]) Nutrition Notes Need for Assessment generated from: MD Order,[employer],MST Initial or Follow up Assessment Current Diagnosis CKD (stage V CKD),Hypertension ,Hyperlipidemia Other Pertinent Diagnosis dementia, new on set seizure disorder Current Diet Renal Labs/Tests Na 134 BUN 23 Cr 2.6 Pertinent Medications reviewed Height 5 ft 9 in Weight 56.9 kg [place] Body Weight (kg) 72.72 BMI 18.5 Intake Prior to Admission Poor Weight Status Underweight Subjective/Other Information MD consult for TF. RN screen for TF, skin risk, chewing difficulty and MST. Unable to wake pt. Per family, pt has not been eating well so a PEG was placed. Pt has sacral wound. Burn Absent Difficulty In Swallowing,Chewing Current % PO Negligible Minimum of two criteria No Muscle Mass Mild Depletion (non-severe) #2 Nutrition Diagnosis Increased nutrient needs ( specify in comment below) Comments: protein Etiology wound healing As Evidenced by Signs and Symptoms pt with sacral wound #1 Nutrition Diagnosis Inadequate oral intake Etiology advanced age, dementia As Evidenced by Signs and Symptoms pt not eating, PEG Is patient on ventilator? No Is Patient Ambulatory and/or Out of Bed No [facility] [phone] Calculation Used for Recommendations [facility] Additional Notes Protein: (>1.25g/kg) greater than 71g Fluid: 1ml/kcal or per MD Nutrition Intervention Change Diet Order: Start TF Nutrition Support: Nepro 1.8 at 38 ml/hr Flush 150 ml q4h Kcal 1,642 Protein (gm) 74 Fluid (mL) 611 Goal #1 Meet at least 75% of protein and energy needs via TF Goal #2 Wound healing Goal #3 Wt gain/maintenance Anticipated Discharge Needs: Nepro 1.8 at 38 ml/hr Flush 150 ml q4h Follow-Up By: 01/15/21 Additional Comments FU for TF start and tolerance
--- NOTE | 2021-01-15 14:49 | Progress Note ---
Assessment and Plan Assessment and Plan # New onset of possible witnessed seizure during dialysis yesterday -CT brain is remarkable for white matter changes -Keppra 500 mg IV -MRI brain is notedright lateral subdural hematoma , and associated blood in cervical junction -EEG today ? consider adding Vimpat or valproic acid as needed -Seizure precaution -Cut down keppra to 250 mg bid -Ativan prn for seizure -Seizure precaution -R/O underlying infection. -Repeat EEG today still show recurrent generalized spike and slow with predominant right frontal and with burst supression battern # Advanced dementia -Ct white matter changes -truncal rigidity -? base line # End stage renal disease 28/08.6 -Nephrology team consulted in ED, -dialysis as per renal team, -avoid nephrotoxic agents. # DVT prophylaxis -SCD to bilateral lower extremities while in bed, prophylactic anticoagulation # Advance care planning -Disease education conducted, care plan discussed, diagnoses discussed, prognosis discussed, patient is full code. Patient family knowledge u nderstanding agree with care plan, +30 minutes. plan 1-maintain keppra 2- maintain valproiv and check valproic acid 3- consider transfer to ICU 4- phsphenytoin load 10 mg/kg/bw then 100 mg IV tid 5- consider intubation and versed drip will follow Subjective Date of service: 01/15/21 Principal diagnosis: witnessed seizure hx of ESRD ,hyponatremia Interval history: slightly more awake today but is starring in space eyes at time is deviated to left pupil constrictive reactive difficult to assess weakness Objective - Vital Sign Vital Signs - 12hr 01/15/21 01/15/21 01/15/21 04:00 04:40 07:38 Temperature 98.6 F 97.5 F L Pulse Rate 87 98 H 95 H Pulse Rate [ From Monitor] Respiratory 20 20 Rate Blood Pressure 168/88 158/85 Blood Pressure [Left] O2 Sat by Pulse 98 99 Oximetry O2 Sat by Pulse Oximetry [ Anterior Bilateral Upper Lobe] 01/15/21 01/15/21 01/15/21 08:36 08:49 09:20 Temperature 97.8 F Pulse Rate 93 H Pulse Rate [ 78 From Monitor] Respiratory 17 22 Rate Blood Pressure 155/82 Blood Pressure [Left] O2 Sat by Pulse 100 Oximetry O2 Sat by Pulse 98 Oximetry [ Anterior Bilateral Upper Lobe] 01/15/21 01/15/21 01/15/21 09:24 09:30 09:45 Temperature Pulse Rate 96 H 96 H 98 H Pulse Rate [ From Monitor] Respiratory Rate Blood Pressure 169/86 168/87 156/85 Blood Pressure [Left] O2 Sat by Pulse Oximetry O2 Sat by Pulse Oximetry [ Anterior Bilateral Upper Lobe] 01/15/21 01/15/21 01/15/21 10:00 10:15 10:30 Temperature Pulse Rate 100 H 102 H 103 H Pulse Rate [ From Monitor] Respiratory Rate Blood Pressure 128/79 139/82 140/87 Blood Pressure [Left] O2 Sat by Pulse Oximetry O2 Sat by Pulse Oximetry [ Anterior Bilateral Upper Lobe] 01/15/21 01/15/21 01/15/21 10:45 11:00 11:15 Temperature Pulse Rate 101 H 106 H 106 H Pulse Rate [ From Monitor] Respiratory Rate Blood Pressure 109/75 129/72 126/77 Blood Pressure [Left] O2 Sat by Pulse Oximetry O2 Sat by Pulse Oximetry [ Anterior Bilateral Upper Lobe] 01/15/21 01/15/21 01/15/21 11:30 11:45 12:00 Temperature Pulse Rate 110 H 110 H 112 H Pulse Rate [ From Monitor] Respiratory Rate Blood Pressure 116/70 124/74 119/72 Blood Pressure [Left] O2 Sat by Pulse Oximetry O2 Sat by Pulse Oximetry [ Anterior Bilateral Upper Lobe] 01/15/21 01/15/21 01/15/21 12:15 12:24 12:30 Temperature 97.8 F Pulse Rate 112 H 112 H 98 H Pulse Rate [ From Monitor] Respiratory 20 Rate Blood Pressure 106/71 92/64 137/75 Blood Pressure [Left] O2 Sat by Pulse Oximetry O2 Sat by Pulse Oximetry [ Anterior Bilateral Upper Lobe] 01/15/21 01/15/21 01/15/21 12:51 12:54 12:55 Temperature 98.7 F Pulse Rate 102 H 102 H 102 H Pulse Rate [ From Monitor] Respiratory 16 Rate Blood Pressure 138/79 138/79 Blood Pressure 138/79 [Left] O2 Sat by Pulse 98 Oximetry O2 Sat by Pulse Oximetry [ Anterior Bilateral Upper Lobe] - General Apperance Constitutional: comfortable - EENT EENT: PERRL, mucous membranes moist - Respiratory Respiratory: lungs clear - Cardiovascular Cardiovascular: normal S1, normal S2 Extremities: no peripheral edema bilat, no clubbing, cyanosis - Gastrointestinal Gastrointestinal: normoactive bowel sounds - Neurologic Cranial nerve examination: PERRL, EOMI Detailed motor examination: other (no movment ) - Laboratory Findings CBC and BMP: 01/15/21 05:22 01/15/21 05:22 Abnormal Lab Findings: Abnormal Labs 01/12/21 01/12/21 01/12/21 14:12 14:36 14:36 WBC 11.2 H Hgb Hct MCV MCH 27 L RDW 21.0 H Lymph % (Auto) Lymph # (Auto) Seg Neutrophils % 79.6 H Seg Neutrophils # 8.9 H Sodium 136 L Chloride 95.8 L Carbon Dioxide 19 L BUN Creatinine 2.0 H Glucose 163 H POC Glucose 166 H Calcium 8.2 L Total Protein 5.4 L Albumin 3.4 L Valproic Acid 01/13/21 01/13/21 01/13/21 05:19 12:14 16:16 WBC Hgb Hct MCV MCH RDW Lymph % (Auto) Lymph # (Auto) Seg Neutrophils % Seg Neutrophils # Sodium 134 L Chloride 95.5 L Carbon Dioxide BUN 23 H Creatinine 2.6 H Glucose 168 H POC Glucose 142 H 163 H Calcium Total Protein 5.8 L Albumin 3.3 L Valproic Acid 01/13/21 01/13/21 01/14/21 20:22 23:57 06:31 WBC Hgb Hct MCV MCH RDW Lymph % (Auto) Lymph # (Auto) Seg Neutrophils % Seg Neutrophils # Sodium Chloride Carbon Dioxide BUN Creatinine Glucose POC Glucose 209 H 189 H 236 H Calcium Total Protein Albumin Valproic Acid 01/14/21 01/14/21 01/14/21 08:57 08:57 12:22 WBC 12.0 H Hgb 11.3 L Hct 34.5 L MCV MCH RDW 20.6 H Lymph % (Auto) 6.4 L Lymph # (Auto) 0.8 L Seg Neutrophils % 87.4 H Seg Neutrophils # 10.5 H Sodium 131 L Chloride 93.7 L Carbon Dioxide BUN 37 H Creatinine 3.7 H Glucose 261 H POC Glucose 280 H Calcium Total Protein Albumin Valproic Acid 01/14/21 01/14/21 01/15/21 16:15 22:28 04:43 WBC Hgb Hct MCV MCH RDW Lymph % (Auto) Lymph # (Auto) Seg Neutrophils % Seg Neutrophils # Sodium Chloride Carbon Dioxide BUN Creatinine Glucose POC Glucose 289 H 252 H 243 H Calcium Total Protein Albumin Valproic Acid 01/15/21 01/15/21 01/15/21 05:22 05:22 08:56 WBC 11.1 H Hgb 11.0 L Hct 33.3 L MCV 83 L MCH 27 L RDW 20.6 H Lymph % (Auto) 6.3 L Lymph # (Auto) 0.7 L Seg Neutrophils % 88.2 H Seg Neutrophils # 9.8 H Sodium 130 L Chloride 92.0 L Carbon Dioxide BUN 49 H Creatinine 4.2 H Glucose 241 H POC Glucose Calcium Total Protein Albumin Valproic Acid 45.9 L
[2021-01-15] MEDS ORDERED: FOSPHENYTOIN 500 MG PE/10 ML INJ IV ONE (14:50)
[2021-01-15] MEDS ORDERED: [UNRECOGNIZED DRUG - OTHER] IV ONE (15:30)
[2021-01-15] MEDS ORDERED: FOSPHENYTOIN IV ONE (15:30)
[2021-01-15] MEDS ORDERED: SODIUM CHLORIDE IV ONE (15:30)
--- NOTE | 2021-01-15 15:59 | Event Note ---
Date: 01/15/21 (Intubation) Requested to intubate patient. In ICU 252 Meds: 15:48 Etomidate 20mg; 15:49 Succinylcholine 100mg Glidescope #3 X 1 attempt by Gennaro Malcolm CRNA 7.5 OETT easily passed +BBS/CO2 VSS
--- NOTE | 2021-01-15 16:21 | XRay Report ---
CHEST 1 VIEW INDICATION: ETT placement. COMPARISON: 3 days prior FINDINGS: Support devices: Endotracheal tube has been placed with tip at the level of the inferior clavicles. R ight-sided central venous catheter is unchanged. Heart: Stable. Lungs/Pleura: No pneumothorax. There are mild perihilar pulmonary opacities. IMPRESSION: 1. No complications after endotracheal tube placement. 2. Mild perihilar pulmonary opacities. Signer Name: Scot Fernandez MD Signed: 01/15/2021 4:16 PM Workstation Name: [id number]
[2021-01-15] MEDS ORDERED: MINERAL OIL/PETROLATUM, WHITE OPHTH OINT 3.5 GM OU PRN (17:14)
[2021-01-15] MEDS ORDERED: LIP THERAPY VASELINE TP PRN (17:14)
[2021-01-15] MEDS: NORepinephrine/NS 4 MG-250 ML 4 MG/250 ML BAG IV SCH (18:38)
[2021-01-15] MEDS ORDERED: SODIUM CHLORIDE 0.9% 250ML 250 ML IV ONE (18:38)
[2021-01-15] MEDS ORDERED: NORepinephrine/NS 4 MG-250 ML 4 MG/250 ML BAG IV ONE (18:41)
[2021-01-15] MEDS ORDERED: SODIUM CHLORIDE 0.9% 500 ML 500 ML IV ONE (19:02)
[2021-01-15] MEDS ORDERED: MIDAZOLAM 2 MG/2 ML INJ IV PRN (19:17)
[2021-01-15] MEDS: FOSPHENYTOIN IV SCH (19:47)
[2021-01-15] MEDS: [UNRECOGNIZED DRUG - OTHER] IV SCH (19:47)
[2021-01-15] MEDS: SODIUM CHLORIDE IV SCH (19:47)
[2021-01-15] MEDS ORDERED: MIDAZOLAM 100 MG in SODIUM CHLORIDE 0.9% 80 ML IV SCH (20:00)
--- NOTE | 2021-01-15 20:43 | Event Note ---
Date: 01/15/21 pt transferred to ICU, intubated, started on fosphenytoin and propofol, blood pressure decreased to 67 systolics. Propofol was discontinued, patient was given 250 cc NS bolus, continued to have low blood pressure, 250 cc bolus NS with norepinephrine started, blood pressure systolics 87, continued giving fluids, blood pressure began to resolve. Advised nurse to wean patient off vasopressor if bp elevated and wean off of fluid, continue to monitor blood pressure closely.
[2021-01-15] MEDS: levETIRAcetam 250 MG in DEXTROSE 5% IN WATER (50 ML) 50 ML IV SCH (21:06)
[2021-01-16] MEDS: INSULIN LISPRO 100 UNIT/ML SUB-Q SCH ×4 (00:54→18:20)
[2021-01-16] MEDS: NORepinephrine/NS 4 MG-250 ML 4 MG/250 ML BAG IV SCH (02:12)
[2021-01-16] MEDS: VALPROATE SODIUM 500 MG in SODIUM CHLORIDE 0.9% 100 ML IV SCH ×3 (05:02→21:07)
[2021-01-16 06:10] LABS: Hematocrit 31.8 % (35.5-45.6); Hemoglobin 10.4 gm/dl (11.8-15.2); Mean Corpuscular HGB Conc 33 % (32-34); Mean Corpuscular Volume 84 fl (84-94); Platelet Count 132 K/mm3 (140-440); Red Blood Count 3.81 M/mm3 (3.65-5.03)
[2021-01-16 06:17] LABS: Red Cell Distribution Width 20.3 % (13.2-15.2)
[2021-01-16 06:25] LABS: Calcium 8.3 mg/dL (8.4-10.2)
[2021-01-16] MEDS ORDERED: PHOS-NAK POWDER PACKET FEEDTUBE NR (07:24)
[2021-01-16] MEDS: [UNRECOGNIZED DRUG - OTHER] IV SCH ×3 (09:00→20:12)
[2021-01-16] MEDS: SODIUM CHLORIDE IV SCH ×3 (09:00→20:12)
[2021-01-16] MEDS: FOSPHENYTOIN IV SCH ×3 (09:00→20:12)
--- NOTE | 2021-01-16 09:27 | Progress Note ---
Assessment and Plan Assessment and Plan # New onset of possible witnessed seizure during dialysis yesterday -CT brain is remarkable for white matter changes -Keppra 500 mg IV -MRI brain is notedright lateral subdural hematoma , and associated blood in cervical junction -EEG repeat today valproic acid , plus fosphenytoin -Seizure precaution -Cut down keppra to 250 mg bid -Ativan prn for seizure -Seizure precaution -R/O underlying infection. -Repeat EEG today still show recurrent generalized spike and slow with predominant right frontal and with burst supression battern # Advanced dementia -Ct white matter changes -truncal rigidity -? base line # End stage renal disease 28/08.6 -Nephrology team consulted in ED, -dialysis as per renal team, -avoid nephrotoxic agents. # DVT prophylaxis -SCD to bilateral lower extremities while in bed, prophylactic anticoagulation # Advance care planning -Disease education conducted, care plan discussed, diagnoses discussed, prognosis discussed, patient is full code. Patient family knowledge understan audi agree with care plan, +30 minutes. plan 1-maintain keppra 250 bid 2- maintain valproiv and check valproic acid #45 3-In ICU intubated on jasper 4- phsphenytoin load 10 mg/kg/bw then 100 mg IV tid 5- Repeat EEG today will follow Subjective Date of service: 01/16/21 Principal diagnosis: witnessed seizure hx of ESRD ,hyponatremia Interval history: Intubated sedated slightly open eyes to sternal rub not follow command , no witnessed seizure in ICU Objective - Vital Sign Vital Signs - 12hr 01/15/21 01/15/21 01/15/21 21:30 21:40 21:50 Temperature Pulse Rate 93 H 96 H 93 H Pulse Rate [ From Monitor] Respiratory 18 18 18 Rate Blood Pressure 142/73 142/73 130/67 O2 Sat by Pulse 100 100 100 Oximetry 01/15/21 01/15/21 01/15/21 22:00 22:10 22:20 Temperature Pulse Rate 95 H 91 H 94 H Pulse Rate [ From Monitor] Respiratory 17 18 17 Rate Blood Pressure 146/76 146/76 138/70 O2 Sat by Pulse 100 100 100 Oximetry 01/15/21 01/15/21 01/15/21 22:30 22:40 22:50 Temperature Pulse Rate 92 H 91 H 92 H Pulse Rate [ From Monitor] Respiratory 18 18 18 Rate Blood Pressure 140/70 140/70 77/46 O2 Sat by Pulse 100 100 100 Oximetry 01/15/21 01/15/21 01/15/21 23:00 23:01 23:10 Temperature Pulse Rate 94 H 104 H 91 H Pulse Rate [ From Monitor] Respiratory 12 20 17 Rate Blood Pressure 131/66 131/66 131/66 O2 Sat by Pulse 100 100 100 Oximetry 01/15/21 01/15/21 01/15/21 23:20 23:30 23:33 Temperature 98.0 F Pulse Rate 95 H 92 H Pulse Rate [ From Monitor] Respiratory 18 18 Rate Blood Pressure 131/66 115/59 O2 Sat by Pulse 100 100 Oximetry 01/15/21 01/15/21 01/15/21 23:40 23:50 23:58 Temperature Pulse Rate 92 H 92 H Pulse Rate [ 96 H From Monitor] Respiratory 18 16 18 Rate Blood Pressure 115/59 112/60 O2 Sat by Pulse 100 100 Oximetry 01/15/21 01/16/21 01/16/21 23:59 00:00 00:10 Temperature Pulse Rate 92 H 93 H 93 H Pulse Rate [ From Monitor] Respiratory 18 18 Rate Blood Pressure 112/60 112/60 O2 Sat by Pulse 100 100 100 Oximetry 01/16/21 01/16/21 01/16/21 00:20 00:30 00:40 Temperature Pulse Rate 95 H 92 H 93 H Pulse Rate [ From Monitor] Respiratory 18 18 18 Rate Blood Pressure 118/63 108/59 108/59 O2 Sat by Pulse 100 100 Oximetry 01/16/21 01/16/21 01/16/21 00:50 01:00 01:10 Temperature Pulse Rate 91 H 92 H 92 H Pulse Rate [ From Monitor] Respiratory 18 18 19 Rate Blood Pressure 107/58 113/60 113/60 O2 Sat by Pulse 100 100 Oximetry 01/16/21 01/16/21 01/16/21 01:20 01:30 01:40 Temperature Pulse Rate 92 H 93 H 92 H Pulse Rate [ From Monitor] Respiratory 18 18 19 Rate Blood Pressure 118/61 109/58 109/58 O2 Sat by Pulse 100 100 Oximetry 01/16/21 01/16/21 01/16/21 01:50 02:00 02:10 Temperature Pulse Rate 91 H 89 89 Pulse Rate [ From Monitor] Respiratory 18 19 20 Rate Blood Pressure 110/59 94/52 94/52 O2 Sat by Pulse 100 100 Oximetry 01/16/21 01/16/21 01/16/21 02:20 02:30 02:40 Temperature Pulse Rate 92 H 91 H 91 H Pulse Rate [ From Monitor] Respiratory 18 19 17 Rate Blood Pressure 88/52 101/57 101/57 O2 Sat by Pulse 100 100 100 Oximetry 01/16/21 01/16/21 01/16/21 02:50 03:00 03:10 Temperature Pulse Rate 91 H 93 H 91 H Pulse Rate [ 96 H From Monitor] Respiratory 19 18 20 Rate Blood Pressure 101/57 107/59 108/58 O2 Sat by Pulse 100 100 100 Oximetry 01/16/21 01/16/21 01/16/21 03:20 03:30 03:40 Temperature 98.3 F Pulse Rate 90 90 89 Pulse Rate [ From Monitor] Respiratory 22 19 18 Rate Blood Pressure 95/54 92/51 92/51 O2 Sat by Pulse 100 100 Oximetry 01/16/21 01/16/21 01/16/21 03:50 04:00 04:10 Temperature Pulse Rate 91 H 92 H 94 H Pulse Rate [ From Monitor] Respiratory 18 20 18 Rate Blood Pressure 104/57 141/73 141/73 O2 Sat by Pulse 100 100 100 Oximetry 01/16/21 01/16/21 01/16/21 04:20 04:24 04:30 Temperature Pulse Rate 89 88 89 Pulse Rate [ From Monitor] Respiratory 19 18 Rate Blood Pressure 141/73 111/16 109/61 O2 Sat by Pulse 100 100 100 Oximetry 01/16/21 01/16/21 01/16/21 04:40 04:50 05:00 Temperature Pulse Rate 92 H 94 H 87 Pulse Rate [ From Monitor] Respiratory 18 19 18 Rate Blood Pressure 109/61 111/57 108/58 O2 Sat by Pulse 97 98 Oximetry 01/16/21 01/16/21 01/16/21 05:10 05:20 05:30 Temperature Pulse Rate 87 87 88 Pulse Rate [ From Monitor] Respiratory 18 18 18 Rate Blood Pressure 108/58 109/57 102/56 O2 Sat by Pulse 98 98 Oximetry 01/16/21 01/16/21 01/16/21 05:40 05:50 06:00 Temperature Pulse Rate 84 86 86 Pulse Rate [ From Monitor] Respiratory 18 18 18 Rate Blood Pressure 102/56 101/56 100/54 O2 Sat by Pulse 98 98 Oximetry 01/16/21 01/16/21 01/16/21 06:10 06:20 06:30 Temperature Pulse Rate 85 84 87 Pulse Rate [ From Monitor] Respiratory 18 18 18 Rate Blood Pressure 100/54 100/55 97/57 O2 Sat by Pulse 99 99 Oximetry 01/16/21 01/16/21 07:35 07:55 Temperature 99.2 F Pulse Rate 86 Pulse Rate [ From Monitor] Respiratory Rate Blood Pressure 101/55 O2 Sat by Pulse 99 Oximetry - General Apperance Constitutional: comfortable - EENT EENT: PERRL, mucous membranes moist - Respiratory Respiratory: chest non-tender, rhonchi - Cardiovascular Cardiovascular: regular rate, normal S1, normal S2 Extremities: no peripheral edema bilat, no clubbing, cyanosis - Gastrointestinal Gastrointestinal: normoactive bowel sounds - Integumentary Integumentary: normal - Neurologic Cranial nerve examination: anosmic, PERRL, EOMI - Laboratory Findings CBC and BMP: 01/16/21 05:17 01/16/21 05:17 Abnormal Lab Findings: Abnormal Labs 01/12/21 01/12/21 01/12/21 14:12 14:36 14:36 WBC 11.2 H Hgb Hct MCV MCH 27 L RDW 21.0 H Plt Count Lymph % (Auto) Lymph # (Auto) Seg Neutrophils % 79.6 H Seg Neutrophils # 8.9 H ABG pH POC ABG pO2 ABG Hemoglobin ABG Oxyhemoglobin ABG Sodium ABG Potassium ABG Glucose Sodium 136 L Potassium Chloride 95.8 L Carbon Dioxide 19 L BUN Creatinine 2.0 H Glucose 163 H POC Glucose 166 H Calcium 8.2 L Phosphorus Total Protein 5.4 L Albumin 3.4 L Arterial Blood Glucose Arterial Blood Ionized Calcium Valproic Acid 01/13/21 01/13/21 01/13/21 05:19 12:14 16:16 WBC Hgb Hct MCV MCH RDW Plt Count Lymph % (Auto) Lymph # (Auto) Seg Neutrophils % Seg Neutrophils # ABG pH POC ABG pO2 ABG Hemoglobin ABG Oxyhemoglobin ABG Sodium ABG Potassium ABG Glucose Sodium 134 L Potassium Chloride 95.5 L Carbon Dioxide BUN 23 H Creatinine 2.6 H Glucose 168 H POC Glucose 142 H 163 H Calcium Phosphorus Total Protein 5.8 L Albumin 3.3 L Arterial Blood Glucose Arterial Blood Ionized Calcium Valproic Acid 01/13/21 01/13/21 01/14/21 20:22 23:57 06:31 WBC Hgb Hct MCV MCH RDW Plt Count Lymph % (Auto) Lymph # (Auto) Seg Neutrophils % Seg Neutrophils # ABG pH POC ABG pO2 ABG Hemoglobin ABG Oxyhemoglobin ABG Sodium ABG Potassium ABG Glucose Sodium Potassium Chloride Carbon Dioxide BUN Creatinine Glucose POC Glucose 209 H 189 H 236 H Calcium Phosphorus Total Protein Albumin Arterial Blood Glucose Arterial Blood Ionized Calcium Valproic Acid 01/14/21 01/14/21 01/14/21 08:57 08:57 12:22 WBC 12.0 H Hgb 11.3 L Hct 34.5 L MCV MCH RDW 20.6 H Plt Count Lymph % (Auto) 6.4 L Lymph # (Auto) 0.8 L Seg Neutrophils % 87.4 H Seg Neutrophils # 10.5 H ABG pH POC ABG pO2 ABG Hemoglobin ABG Oxyhemoglobin ABG Sodium ABG Potassium ABG Glucose Sodium 131 L Potassium Chloride 93.7 L Carbon Dioxide BUN 37 H Creatinine 3.7 H Glucose 261 H POC Glucose 280 H Calcium Phosphorus Total Protein Albumin Arterial Blood Glucose Arterial Blood Ionized Calcium Valproic Acid 01/14/21 01/14/21 01/15/21 16:15 22:28 04:43 WBC Hgb Hct MCV MCH RDW Plt Count Lymph % (Auto) Lymph # (Auto) Seg Neutrophils % Seg Neutrophils # ABG pH POC ABG pO2 ABG Hemoglobin ABG Oxyhemoglobin ABG Sodium ABG Potassium ABG Glucose Sodium Potassium Chloride Carbon Dioxide BUN Creatinine Glucose POC Glucose 289 H 252 H 243 H Calcium Phosphorus Total Protein Albumin Arterial Blood Glucose Arterial Blood Ionized Calcium Valproic Acid 01/15/21 01/15/21 01/15/21 05:22 05:22 08:56 WBC 11.1 H Hgb 11.0 L Hct 33.3 L MCV 83 L MCH 27 L RDW 20.6 H Plt Count Lymph % (Auto) 6.3 L Lymph # (Auto) 0.7 L Seg Neutrophils % 88.2 H Seg Neutrophils # 9.8 H ABG pH POC ABG pO2 ABG Hemoglobin ABG Oxyhemoglobin ABG Sodium ABG Potassium ABG Glucose Sodium 130 L Potassium Chloride 92.0 L Carbon Dioxide BUN 49 H Creatinine 4.2 H Glucose 241 H POC Glucose Calcium Phosphorus Total Protein Albumin Arterial Blood Glucose Arterial Blood Ionized Calcium Valproic Acid 45.9 L 01/15/21 01/15/21 01/15/21 16:42 18:14 23:10 WBC Hgb Hct MCV MCH RDW Plt Count Lymph % (Auto) Lymph # (Auto) Seg Neutrophils % Seg Neutrophils # ABG pH 7.463 H POC ABG pO2 377.4 H ABG Hemoglobin 11.6 L ABG Oxyhemoglobin 98.6 H ABG Sodium 130.1 L ABG Potassium ABG Glucose 254 H Sodium Potassium Chloride Carbon Dioxide BUN Creatinine Glucose POC Glucose 218 H 279 H Calcium Phosphorus Total Protein Albumin Arterial Blood Glucose 254 H Arterial Blood Ionized Calcium 4.5 L Valproic Acid 01/16/21 01/16/21 01/16/21 03:10 05:11 05:17 WBC Hgb 10.4 L Hct 31.8 L MCV MCH 27 L RDW 20.3 H Plt Count 132 L Lymph % (Auto) Lymph # (Auto) Seg Neutrophils % Seg Neutrophils # ABG pH POC ABG pO2 174.4 H ABG Hemoglobin 10.3 L ABG Oxyhemoglobin 98.6 H ABG Sodium 129.9 L ABG Potassium 3.2 L ABG Glucose 202 H Sodium Potassium Chloride Carbon Dioxide BUN Creatinine Glucose POC Glucose 193 H Calcium Phosphorus Total Protein Albumin Arterial Blood Glucose 202 H Arterial Blood Ionized Calcium Valproic Acid 01/16/21 05:17 WBC Hgb Hct MCV MCH RDW Plt Count Lymph % (Auto) Lymph # (Auto) Seg Neutrophils % Seg Neutrophils # ABG pH POC ABG pO2 ABG Hemoglobin ABG Oxyhemoglobin ABG Sodium ABG Potassium ABG Glucose Sodium Potassium 3.4 L Chloride Carbon Dioxide BUN 36 H Creatinine 3.2 H Glucose 216 H POC Glucose Calcium 8.3 L Phosphorus 1.10 L Total Protein Albumin Arterial Blood Glucose Arterial Blood Ionized Calcium Valproic Acid
[2021-01-16] MEDS: DOXAZOSIN 4 MG TAB PO SCH (10:00)
[2021-01-16] MEDS: levETIRAcetam 250 MG in DEXTROSE 5% IN WATER (50 ML) 50 ML IV SCH ×2 (10:11→21:07)
[2021-01-16] MEDS: CALCITRIOL 0.5 MCG CAP PO SCH (10:12)
[2021-01-16] MEDS: LANSOPRAZOLE 30 MG SOLUTAB FEEDTUBE SCH ×2 (10:12→21:07)
--- NOTE | 2021-01-16 11:47 | Progress Note ---
Assessment and Plan 1.ESRD: Patient is on maintenance hemodialysis three times a week, TTS schedule. Last outpatient HD 01/12/2021. Meds dosage based on GFR. Hemodialysis: 01/15. 2. FEN: Hyponatremia, improved, monitor. Monitor lytes and volume status. 3. Acute resp failure: Currently intubated, on vent. Wean as tolerated. 4. Shock: Off pressors. Monitor. 5. New onset of possible witnessed seizure during dialysis: CT brain is remarkable for white matter changes. Valproate. S/p Keppra 500 mg IV. MRI brain: small SDH, chronic changes. Seizure precaution. Followed by Neuro. 6. Advanced dementia: CT white matter changes. 7. Failure to thrive: PEG tube. 8. Anemia, POA: Epogen with HD. 9. DM type 2. Subjective: Patient was seen and examined at the bedside. Events noted, in ICU. Examination: General appearance: well-developed, appears stated age, no distress, intubated, on vent HEENT: ATNC, CELINA Neck: Trachea midline Respiratory: ctab Cardiology: regular, S1S2, no murmur Abdomen: soft, not tender, BS heard, Peg tube noted Integumentary: warm, dry, no obvious rash Neurologic: stuporous Ext: no edema noted Hemodialysis catheter: R IJ tunnel catheter Subjective Date of service: 01/16/21 Principal diagnosis: witnessed seizure hx of ESRD ,hyponatremia Objective - Vital Signs Vital signs: Vital Signs - 12hr 01/15/21 01/15/21 01/15/21 23:50 23:58 23:59 Temperature Pulse Rate 92 H 92 H Pulse Rate [ 96 H From Monitor] Respiratory 16 18 Rate Blood Pressure 112/60 112/60 O2 Sat by Pulse 100 100 Oximetry 01/16/21 01/16/21 01/16/21 00:00 00:10 00:20 Temperature Pulse Rate 93 H 93 H 95 H Pulse Rate [ From Monitor] Respiratory 18 18 18 Rate Blood Pressure 112/60 118/63 O2 Sat by Pulse 100 100 100 Oximetry 01/16/21 01/16/21 01/16/21 00:30 00:40 00:50 Temperature Pulse Rate 92 H 93 H 91 H Pulse Rate [ From Monitor] Respiratory 18 18 18 Rate Blood Pressure 108/59 108/59 107/58 O2 Sat by Pulse 100 100 Oximetry 01/16/21 01/16/21 01/16/21 01:00 01:10 01:20 Temperature Pulse Rate 92 H 92 H 92 H Pulse Rate [ From Monitor] Respiratory 18 19 18 Rate Blood Pressure 113/60 113/60 118/61 O2 Sat by Pulse 100 100 Oximetry 01/16/21 01/16/21 01/16/21 01:30 01:40 01:50 Temperature Pulse Rate 93 H 92 H 91 H Pulse Rate [ From Monitor] Respiratory 18 19 18 Rate Blood Pressure 109/58 109/58 110/59 O2 Sat by Pulse 100 100 Oximetry 01/16/21 01/16/21 01/16/21 02:00 02:10 02:20 Temperature Pulse Rate 89 89 92 H Pulse Rate [ From Monitor] Respiratory 19 20 18 Rate Blood Pressure 94/52 94/52 88/52 O2 Sat by Pulse 100 100 Oximetry 01/16/21 01/16/21 01/16/21 02:30 02:40 02:50 Temperature Pulse Rate 91 H 91 H 91 H Pulse Rate [ From Monitor] Respiratory 19 17 19 Rate Blood Pressure 101/57 101/57 101/57 O2 Sat by Pulse 100 100 100 Oximetry 01/16/21 01/16/21 01/16/21 03:00 03:10 03:20 Temperature Pulse Rate 93 H 91 H 90 Pulse Rate [ 96 H From Monitor] Respiratory 18 20 22 Rate Blood Pressure 107/59 108/58 95/54 O2 Sat by Pulse 100 100 100 Oximetry 01/16/21 01/16/21 01/16/21 03:30 03:40 03:50 Temperature 98.3 F Pulse Rate 90 89 91 H Pulse Rate [ From Monitor] Respiratory 19 18 18 Rate Blood Pressure 92/51 92/51 104/57 O2 Sat by Pulse 100 100 Oximetry 01/16/21 01/16/21 01/16/21 04:00 04:10 04:20 Temperature Pulse Rate 92 H 94 H 89 Pulse Rate [ From Monitor] Respiratory 20 18 19 Rate Blood Pressure 141/73 141/73 141/73 O2 Sat by Pulse 100 100 100 Oximetry 01/16/21 01/16/21 01/16/21 04:24 04:30 04:40 Temperature Pulse Rate 88 89 92 H Pulse Rate [ From Monitor] Respiratory 18 18 Rate Blood Pressure 111/16 109/61 109/61 O2 Sat by Pulse 100 100 97 Oximetry 01/16/21 01/16/21 01/16/21 04:50 05:00 05:10 Temperature Pulse Rate 94 H 87 87 Pulse Rate [ From Monitor] Respiratory 19 18 18 Rate Blood Pressure 111/57 108/58 108/58 O2 Sat by Pulse 98 98 Oximetry 01/16/21 01/16/21 01/16/21 05:20 05:30 05:40 Temperature Pulse Rate 87 88 84 Pulse Rate [ From Monitor] Respiratory 18 18 18 Rate Blood Pressure 109/57 102/56 102/56 O2 Sat by Pulse 98 98 Oximetry 01/16/21 01/16/21 01/16/21 05:50 06:00 06:10 Temperature Pulse Rate 86 86 85 Pulse Rate [ From Monitor] Respiratory 18 18 18 Rate Blood Pressure 101/56 100/54 100/54 O2 Sat by Pulse 98 99 Oximetry 01/16/21 01/16/21 01/16/21 06:20 06:30 06:40 Temperature Pulse Rate 84 87 84 Pulse Rate [ From Monitor] Respiratory 18 18 19 Rate Blood Pressure 100/55 97/57 97/57 O2 Sat by Pulse 99 99 Oximetry 01/16/21 01/16/21 01/16/21 06:50 07:00 07:10 Temperature Pulse Rate 85 85 85 Pulse Rate [ From Monitor] Respiratory 18 18 18 Rate Blood Pressure 118/63 118/63 118/63 O2 Sat by Pulse 100 99 99 Oximetry 01/16/21 01/16/21 01/16/21 07:20 07:30 07:35 Temperature Pulse Rate 85 85 86 Pulse Rate [ From Monitor] Respiratory 18 18 Rate Blood Pressure 105/58 101/55 101/55 O2 Sat by Pulse 99 99 Oximetry 01/16/21 01/16/21 01/16/21 07:40 07:50 07:55 Temperature 99.2 F Pulse Rate 88 86 Pulse Rate [ From Monitor] Respiratory 18 18 Rate Blood Pressure 101/55 98/55 O2 Sat by Pulse 99 98 Oximetry 01/16/21 01/16/21 01/16/21 08:00 08:10 08:20 Temperature Pulse Rate 84 87 89 Pulse Rate [ From Monitor] Respiratory 19 18 18 Rate Blood Pressure 92/51 92/51 95/52 O2 Sat by Pulse 98 98 Oximetry 01/16/21 01/16/21 01/16/21 08:30 08:40 08:50 Temperature Pulse Rate 86 84 87 Pulse Rate [ From Monitor] Respiratory 19 18 18 Rate Blood Pressure 106/60 106/60 111/61 O2 Sat by Pulse 98 99 Oximetry 01/16/21 01/16/21 01/16/21 09:00 09:10 09:20 Temperature Pulse Rate 85 95 H 84 Pulse Rate [ From Monitor] Respiratory 18 21 18 Rate Blood Pressure 103/56 103/56 102/55 O2 Sat by Pulse 99 98 Oximetry 01/16/21 11:18 Temperature Pulse Rate 86 Pulse Rate [ From Monitor] Respiratory Rate Blood Pressure 117/64 O2 Sat by Pulse 98 Oximetry - Lab 01/16/21 05:17 01/16/21 05:17 Most recent lab results ABG pH 7.434 (7.320-7.450) 01/16/21 03:10 ABG O2 Saturation 99.5 (0-100) 01/16/21 03:10 Calcium 8.3 mg/dL (8.4-10.2) L 01/16/21 05:17 Phosphorus 1.10 mg/dL (2.5-4.5) L 01/16/21 05:17 Magnesium 1.80 mg/dL (1.7-2.3) 01/16/21 05:17 Medications & Allergies - Medications Allergies/Adverse Reactions: Allergies No Known Allergies Allergy (Verified 08/14/19 16:11) Home Medications: Home Medications Medication Instructions Recorded Confirmed Last Taken Type Alogliptin Benzoate [Alogliptin] 1 tab PO DAILY 10/02/20 10/25/20 Unknown History Sevelamer Carbonate [Renvela] 800 mg PO TIDWM 10/02/20 10/25/20 Unknown History buprenorphine hcl [Subutex] 2 mg SL QDAY PRN 10/02/20 10/25/20 Unknown History AtorvaSTATin [Lipitor] 40 mg PO QHS #30 10/11/20 10/25/20 Unknown Rx Docusate Sodium [Colace CAP] 100 mg PO BID PRN #60 cap 10/11/20 10/25/20 Unknown Rx Doxazosin [Cardura] 4 mg PO QDAY #30 10/11/20 10/25/20 Unknown Rx Febuxostat 40 mg PO QDAY #30 10/11/20 10/25/20 Unknown Rx Ketotifen Fumarate 1 drop OU QDAY #1 bottle 10/11/20 10/25/20 Unknown Rx Lansoprazole Solutab [Prevacid 30 mg FEEDTUBE BID #60 tab.rapdis 10/11/20 10/25/20 Unknown Rx Solutab] Megestrol Acetate 40 mg PO QDAY #30 10/11/20 10/25/20 Unknown Rx Metoprolol [Lopressor TAB] 12.5 mg PO BID #60 tablet 10/11/20 10/25/20 Unknown Rx calcitrioL [Rocaltrol] 1 mcg PO QDAY #30 cap 10/11/20 10/25/20 Unknown Rx timoloL maleate [Timolol Maleate 1 drop OP BID #1 bottle 10/11/20 10/25/20 Unknown Rx 0.25%] Active Medications: Generic Name Dose Route Start Last Admin Trade Name Freq PRN Reason Stop Dose Admin Acetaminophen 650 mg 01/12/21 19:30 Acetaminophen 325 Mg Tab PO Q4H PRN Pain MILD(1-3)/Fever >100.5/ABEL Albuterol 2.5 mg 01/12/21 19:30 Albuterol 2.5 Mg/3 Ml Nebu IH Q4HRT PRN Shortness Of Breath Lipase/Protease/Amylase 1 each 01/13/21 10:11 Lipase 10,500/Protease 25,000/Amylase 43,750 (Units) Dr Silveira FEEDTUBE PRN PRN For Clogged Feeding Tube Atorvastatin Calcium 40 mg 01/12/21 22:00 01/15/21 21:09 Atorvastatin 40 Mg Tab PO 40 mg QHS NOLAN Administration Buprenorphine HCl 2 mg 01/12/21 18:54 Buprenorphine 2 Mg Tab Subl SL QDAY PRN Pain , Severe (7-10) Calcitriol 1 mcg 01/13/21 10:00 01/16/21 10:12 Calcitriol 0.5 Mcg Cap PO 1 mcg QDAY NOLAN Administration Docusate Sodium 100 mg 01/12/21 18:54 Docusate Sodium 100 Mg Cap PO BID PRN Constipation Doxazosin Mesylate 4 mg 01/13/21 10:00 01/15/21 12:54 Doxazosin 4 Mg Tab PO 4 mg QDAY NOLAN Administration Hydralazine HCl 5 mg 01/13/21 05:21 01/13/21 05:33 Hydralazine 20 Mg/1 Ml Inj IV 5 mg Q4H PRN Administration Hypertension Hydromorphone HCl 0.5 mg 01/12/21 19:30 01/15/21 10:04 Hydromorphone 1 Mg/1 Ml Inj IV 0.5 mg Q12H PRN Administration Pain , Severe (7-10) Hydrophilic Ointment 1 applic 01/15/21 17:14 Lip Therapy Vaseline TP Q2HR PRN Dry Lips Valproate Sodium 500 mg/ 105 mls @ 100 mls/hr 01/14/21 22:00 01/16/21 05:02 Sodium Chloride IV 100 mls/hr Q8H NOLAN Administration Sodium Chloride 100 mls @ 999 mls/hr 01/15/21 08:00 Nacl 0.9% IV DIONNA PRN Hypotension Fosphenytoin Sodium 100 mg.pe/ 102 mls @ 200 mls/hr 01/15/21 20:00 01/16/21 09:00 Sodium Chloride IV 200 mls/hr TID NOLAN Administration Norepinephrine 4 mg in 250 mls @ 7.5 mls/hr 01/15/21 19:00 01/16/21 02:30 Levophed Drip 4 Mg/Ns 250 Ml IV 2 mcg/min TITR NOLAN 7.5 mls/hr Titration Protocol 2 MCG/MIN Levetiracetam 250 mg/ Dextrose 52.5 mls @ 200 mls/hr 01/15/21 22:00 01/16/21 10:11 IV 200 mls/hr Q12HR NOLAN Administration Midazolam HCl 100 mg/ Sodium 100 mls @ 2 mls/hr 01/15/21 20:00 01/16/21 04:48 Chloride IV 2 mg/hr TITR NOLAN 2 mls/hr Titration Protocol 2 MG/HR Insulin Human Lispro 0 unit 01/16/21 00:00 01/16/21 05:16 Insulin Lispro 100 Unit/Ml SUB-Q 2 unit Q6HR NOLAN Administration Protocol Lansoprazole 30 mg 01/12/21 22:00 01/16/21 10:12 Lansoprazole 30 Mg Solutab FEEDTUBE 30 mg BID NOLAN Administration Linagliptin 5 mg 01/13/21 11:00 01/15/21 12:56 Linagliptin 5 Mg Tab PO 5 mg QDDIAB NOLAN Administration Megestrol Acetate 40 mg 01/13/21 10:00 01/15/21 12:56 Megestrol 40 Mg Tab PO 40 mg QDAY NOLAN Administration Midazolam HCl 2 mg 01/15/21 19:17 Midazolam 2 Mg/2 Ml Inj IV Q10MIN PRN Sedation Miscellaneous Medication 40 mg 01/13/21 10:00 Febuxostat [Febuxostat] PO QDAY NOLAN Miscellaneous Medication 1 drop 01/13/21 10:00 Ketotifen Fumarate [Ketotifen Fumarate] OU QDAY NOLAN Miscellaneous Medication 1 drop 01/12/21 22:00 Timolol Maleate [Timolol Maleate 0.25%] OP BID NOLAN Multi-Ingred Cream/Lotion/Oil/Oint 1 applic 01/15/21 17:14 Mineral Oil/Petrolatum, White Ophth Oint 3.5 Gm OU Q4HR PRN Dry Eye(s) Ondansetron HCl 4 mg 01/12/21 19:30 Ondansetron 4 Mg/2 Ml Inj IV Q8H PRN Nausea And Vomiting Oxycodone/Acetaminophen 1 tab 01/12/21 19:30 Oxycodone /Acetaminophen 5-325mg Tab PO Q12H PRN Pain, Moderate (4-6) Potassium Phos/Sodium Phos 2 each 01/16/21 07:24 Phos-Nak Powder Packet FEEDTUBE 01/16/21 12:00 ONCE NR Simple Syrup 15 ml 01/13/21 10:11 Simple Syrup 15 Ml FEEDTUBE PRN PRN Hypoglycemia Simple Syrup 30 ml 01/13/21 10:11 Simple Syrup 15 Ml FEEDTUBE PRN PRN Hypoglycemia Sodium Bicarbonate 325 mg 01/13/21 10:11 Sodium Bicarbonate 325 Mg Tab FEEDTUBE PRN PRN For Clogged Feeding Tube Sodium Chloride 10 ml 01/12/21 22:00 01/16/21 05:03 Sodium Chloride 0.9% 10 Ml Flush Syringe IV 10 ml BID NOLAN Administration Sodium Chloride 10 ml 01/12/21 19:30 Sodium Chloride 0.9% 10 Ml Flush Syringe IV PRN PRN LINE FLUSH
[2021-01-16] MEDS: MEGESTROL 40 MG TAB PO SCH (12:16)
[2021-01-16] MEDS: LINAGLIPTIN 5 MG TAB PO SCH (12:16)
--- NOTE | 2021-01-16 12:33 | Consultation ---
History of Present Illness Consult date: 01/16/21 Requesting physician: DUY HOYT Reason for consult: other (STatus epilepticus) History of present illness: 80 y/o male with history of hygroma, found to be in status despite chronic antiepileptic therapy. Neurology saw and requested burst suppression therapy which would require intubation. Intubated by anesthesia and started initially on diprovan but patient's BP could not tolerate it so changed to versed. This am, EEG at bedside shows burst suppression on EEG with Versed 3 an hour. Currently intubated on minimal vent settings. Past History Past Medical History: dialysis, ESRD, hypertension, hyperlipidemia, other (See HPI) Past Surgical History: Other (Dialysis access) Social history: . denies: smoking, alcohol abuse Family history: diabetes, hypertension Medications and Allergies Allergies Allergy/AdvReac Type Severity Reaction Status Date / Time No Known Allergies Allergy Verified 08/14/19 16:11 Home Medications Medication Instructions Recorded Confirmed Last Taken Type Alogliptin Benzoate [Alogliptin] 1 tab PO DAILY 10/02/20 10/25/20 Unknown History Sevelamer Carbonate [Renvela] 800 mg PO TIDWM 10/02/20 10/25/20 Unknown History buprenorphine hcl [Subutex] 2 mg SL QDAY PRN 10/02/20 10/25/20 Unknown History AtorvaSTATin [Lipitor] 40 mg PO QHS #30 10/11/20 10/25/20 Unknown Rx Docusate Sodium [Colace CAP] 100 mg PO BID PRN #60 cap 10/11/20 10/25/20 Unknown Rx Doxazosin [Cardura] 4 mg PO QDAY #30 10/11/20 10/25/20 Unknown Rx Febuxostat 40 mg PO QDAY #30 10/11/20 10/25/20 Unknown Rx Ketotifen Fumarate 1 drop OU QDAY #1 bottle 10/11/20 10/25/20 Unknown Rx Lansoprazole Solutab [Prevacid 30 mg FEEDTUBE BID #60 tab.rapdis 10/11/20 10/25/20 Unknown Rx Solutab] Megestrol Acetate 40 mg PO QDAY #30 10/11/20 10/25/20 Unknown Rx Metoprolol [Lopressor TAB] 12.5 mg PO BID #60 tablet 10/11/20 10/25/20 Unknown Rx calcitrioL [Rocaltrol] 1 mcg PO QDAY #30 cap 10/11/20 10/25/20 Unknown Rx timoloL maleate [Timolol Maleate 1 drop OP BID #1 bottle 10/11/20 10/25/20 Unknown Rx 0.25%] Active Meds: Active Medications Acetaminophen (Acetaminophen 325 Mg Tab) 650 mg PO Q4H PRN PRN Reason: Pain MILD(1-3)/Fever >100.5/ABEL Albuterol (Albuterol 2.5 Mg/3 Ml Nebu) 2.5 mg IH Q4HRT PRN PRN Reason: Shortness Of Breath Lipase/Protease/Amylase (Lipase 10,500/Protease 25,000/Amylase 43,750 (Units) Dr Silveira) 1 each FEEDTUBE PRN PRN PRN Reason: For Clogged Feeding Tube Atorvastatin Calcium (Atorvastatin 40 Mg Tab) 40 mg PO QHS [facility] Last Admin: 01/15/21 21:09 Dose: 40 mg Documented by: Buprenorphine HCl (Buprenorphine 2 Mg Tab Subl) 2 mg SL QDAY PRN PRN Reason: Pain , Severe (7-10) Calcitriol (Calcitriol 0.5 Mcg Cap) 1 mcg PO QDAY [facility] Last Admin: 01/16/21 10:12 Dose: 1 mcg Documented by: Docusate Sodium (Docusate Sodium 100 Mg Cap) 100 mg PO BID PRN PRN Reason: Constipation Doxazosin Mesylate (Doxazosin 4 Mg Tab) 4 mg PO QDAY [facility] Last Admin: 01/16/21 10:00 Dose: Not Given Documented by: Hydralazine HCl (Hydralazine 20 Mg/1 Ml Inj) 5 mg IV Q4H PRN PRN Reason: Hypertension Last Admin: 01/13/21 05:33 Dose: 5 mg Documented by: Hydromorphone HCl (Hydromorphone 1 Mg/1 Ml Inj) 0.5 mg IV Q12H PRN PRN Reason: Pain , Severe (7-10) Last Admin: 01/15/21 10:04 Dose: 0.5 mg Documented by: Hydrophilic Ointment (Lip Therapy Vaseline) 1 applic TP Q2HR PRN PRN Reason: Dry Lips Valproate Sodium 500 mg/ (Sodium Chloride) 105 mls @ 100 mls/hr IV Q8H [facility] Last Admin: 01/16/21 05:02 Dose: 100 mls/hr Documented by: Sodium Chloride (Nacl 0.9%) 100 mls @ 999 mls/hr IV DIONNA PRN PRN Reason: Hypotension Fosphenytoin Sodium 100 mg.pe/ (Sodium Chloride) 102 mls @ 200 mls/hr IV TID [facility] Last Admin: 01/16/21 09:00 Dose: 200 mls/hr Documented by: Norepinephrine (Levophed Drip 4 Mg/Ns 250 Ml) 4 mg in 250 mls @ 7.5 mls/hr IV TITR [facility]; Protocol Last Titration: 01/16/21 09:15 Dose: 0 mcg/min, 0 mls/hr Documented by: Levetiracetam 250 mg/ Dextrose 52.5 mls @ 200 mls/hr IV Q12HR [facility] Last Admin: 01/16/21 10:11 Dose: 200 mls/hr Documented by: Midazolam HCl 100 mg/ Sodium (Chloride) 100 mls @ 2 mls/hr IV TITR [facility]; Protocol Last Titration: 01/16/21 11:35 Dose: 3 mg/hr, 3 mls/hr Documented by: Insulin Human Lispro (Insulin Lispro 100 Unit/Ml) 0 unit SUB-Q Q6HR [facility]; Protocol Last Admin: 01/16/21 12:21 Dose: 2 unit Documented by: Lansoprazole (Lansoprazole 30 Mg Solutab) 30 mg FEEDTUBE BID [facility] Last Admin: 01/16/21 10:12 Dose: 30 mg Documented by: Linagliptin (Linagliptin 5 Mg Tab) 5 mg PO QDDIAB [facility] Last Admin: 01/16/21 12:16 Dose: 5 mg Documented by: Megestrol Acetate (Megestrol 40 Mg Tab) 40 mg PO QDAY [facility] Last Admin: 01/16/21 12:16 Dose: 40 mg Documented by: Midazolam HCl (Midazolam 2 Mg/2 Ml Inj) 2 mg IV Q10MIN PRN PRN Reason: Sedation Miscellaneous Medication (Febuxostat [Febuxostat]) 40 mg PO QDAY [facility] Miscellaneous Medication (Ketotifen Fumarate [Ketotifen Fumarate]) 1 drop OU QDAY [facility] Miscellaneous Medication (Timolol Maleate [Timolol Maleate 0.25%]) 1 drop OP BID [facility] Multi-Ingred Cream/Lotion/Oil/Oint (Mineral Oil/Petrolatum, White Ophth Oint 3.5 Gm) 1 applic OU Q4HR PRN PRN Reason: Dry Eye(s) Ondansetron HCl (Ondansetron 4 Mg/2 Ml Inj) 4 mg IV Q8H PRN PRN Reason: Nausea And Vomiting Oxycodone/Acetaminophen (Oxycodone /Acetaminophen 5-325mg Tab) 1 tab PO Q12H PRN PRN Reason: Pain, Moderate (4-6) Simple Syrup (Simple Syrup 15 Ml) 15 ml FEEDTUBE PRN PRN PRN Reason: Hypoglycemia Simple Syrup (Simple Syrup 15 Ml) 30 ml FEEDTUBE PRN PRN PRN Reason: Hypoglycemia Sodium Bicarbonate (Sodium Bicarbonate 325 Mg Tab) 325 mg FEEDTUBE PRN PRN PRN Reason: For Clogged Feeding Tube Sodium Chloride (Sodium Chloride 0.9% 10 Ml Flush Syringe) 10 ml IV BID [facility] Last Admin: 01/16/21 12:17 Dose: 10 ml Documented by: Sodium Chloride (Sodium Chloride 0.9% 10 Ml Flush Syringe) 10 ml IV PRN PRN PRN Reason: LINE FLUSH Review of Systems ROS unobtainable: due to endotracheal tube, due to mental status Physical Examination Vital signs: Vital Signs Pulse Ox 76 L 01/12/21 14:14 General appearance: no acute distress, comatose (secondary to meds for seizure) ENT: other (orally intubated and sedated) Neck: supple Effort: normal Ascultation: Bilateral: clear Cardiovascular: regular rate and rhythm Extremities: no edema, pulses normal Results - Laboratory Findings CBC and BMP: 01/16/21 05:17 01/16/21 05:17 ABG ABG pH 7.434 (7.320-7.450) 01/16/21 03:10 POC ABG pCO2 38.2 mmHg (32.0-48.0) 01/16/21 03:10 POC ABG pO2 174.4 mmHg (83-108) H 01/16/21 03:10 POC ABG HCO3 25.0 01/16/21 03:10 ABG O2 Saturation 99.5 (0-100) 01/16/21 03:10 Abnormal lab findings: Abnormal Labs 01/12/21 01/12/21 01/12/21 14:12 14:36 14:36 WBC 11.2 H Hgb Hct MCV MCH 27 L RDW 21.0 H Plt Count Lymph % (Auto) Lymph # (Auto) Seg Neutrophils % 79.6 H Seg Neutrophils # 8.9 H ABG pH POC ABG pO2 ABG Hemoglobin ABG Oxyhemoglobin ABG Sodium ABG Potassium ABG Glucose Sodium 136 L Potassium Chloride 95.8 L Carbon Dioxide 19 L BUN Creatinine 2.0 H Glucose 163 H POC Glucose 166 H Calcium 8.2 L Phosphorus Total Protein 5.4 L Albumin 3.4 L Arterial Blood Glucose Arterial Blood Ionized Calcium Phenytoin Valproic Acid 01/13/21 01/13/21 01/13/21 05:19 12:14 16:16 WBC Hgb Hct MCV MCH RDW Plt Count Lymph % (Auto) Lymph # (Auto) Seg Neutrophils % Seg Neutrophils # ABG pH POC ABG pO2 ABG Hemoglobin ABG Oxyhemoglobin ABG Sodium ABG Potassium ABG Glucose Sodium 134 L Potassium Chloride 95.5 L Carbon Dioxide BUN 23 H Creatinine 2.6 H Glucose 168 H POC Glucose 142 H 163 H Calcium Phosphorus Total Protein 5.8 L Albumin 3.3 L Arterial Blood Glucose Arterial Blood Ionized Calcium Phenytoin Valproic Acid 01/13/21 01/13/21 01/14/21 20:22 23:57 06:31 WBC Hgb Hct MCV MCH RDW Plt Count Lymph % (Auto) Lymph # (Auto) Seg Neutrophils % Seg Neutrophils # ABG pH POC ABG pO2 ABG Hemoglobin ABG Oxyhemoglobin ABG Sodium ABG Potassium ABG Glucose Sodium Potassium Chloride Carbon Dioxide BUN Creatinine Glucose POC Glucose 209 H 189 H 236 H Calcium Phosphorus Total Protein Albumin Arterial Blood Glucose Arterial Blood Ionized Calcium Phenytoin Valproic Acid 01/14/21 01/14/21 01/14/21 08:57 08:57 12:22 WBC 12.0 H Hgb 11.3 L Hct 34.5 L MCV MCH RDW 20.6 H Plt Count Lymph % (Auto) 6.4 L Lymph # (Auto) 0.8 L Seg Neutrophils % 87.4 H Seg Neutrophils # 10.5 H ABG pH POC ABG pO2 ABG Hemoglobin ABG Oxyhemoglobin ABG Sodium ABG Potassium ABG Glucose Sodium 131 L Potassium Chloride 93.7 L Carbon Dioxide BUN 37 H Creatinine 3.7 H Glucose 261 H POC Glucose 280 H Calcium Phosphorus Total Protein Albumin Arterial Blood Glucose Arterial Blood Ionized Calcium Phenytoin Valproic Acid 01/14/21 01/14/21 01/15/21 16:15 22:28 04:43 WBC Hgb Hct MCV MCH RDW Plt Count Lymph % (Auto) Lymph # (Auto) Seg Neutrophils % Seg Neutrophils # ABG pH POC ABG pO2 ABG Hemoglobin ABG Oxyhemoglobin ABG Sodium ABG Potassium ABG Glucose Sodium Potassium Chloride Carbon Dioxide BUN Creatinine Glucose POC Glucose 289 H 252 H 243 H Calcium Phosphorus Total Protein Albumin Arterial Blood Glucose Arterial Blood Ionized Calcium Phenytoin Valproic Acid 01/15/21 01/15/21 01/15/21 05:22 05:22 08:56 WBC 11.1 H Hgb 11.0 L Hct 33.3 L MCV 83 L MCH 27 L RDW 20.6 H Plt Count Lymph % (Auto) 6.3 L Lymph # (Auto) 0.7 L Seg Neutrophils % 88.2 H Seg Neutrophils # 9.8 H ABG pH POC ABG pO2 ABG Hemoglobin ABG Oxyhemoglobin ABG Sodium ABG Potassium ABG Glucose Sodium 130 L Potassium Chloride 92.0 L Carbon Dioxide BUN 49 H Creatinine 4.2 H Glucose 241 H POC Glucose Calcium Phosphorus Total Protein Albumin Arterial Blood Glucose Arterial Blood Ionized Calcium Phenytoin Valproic Acid 45.9 L 01/15/21 01/15/21 01/15/21 16:42 18:14 23:10 WBC Hgb Hct MCV MCH RDW Plt Count Lymph % (Auto) Lymph # (Auto) Seg Neutrophils % Seg Neutrophils # ABG pH 7.463 H POC ABG pO2 377.4 H ABG Hemoglobin 11.6 L ABG Oxyhemoglobin 98.6 H ABG Sodium 130.1 L ABG Potassium ABG Glucose 254 H Sodium Potassium Chloride Carbon Dioxide BUN Creatinine Glucose POC Glucose 218 H 279 H Calcium Phosphorus Total Protein Albumin Arterial Blood Glucose 254 H Arterial Blood Ionized Calcium 4.5 L Phenytoin Valproic Acid 01/16/21 01/16/21 01/16/21 03:10 05:11 05:17 WBC Hgb 10.4 L Hct 31.8 L MCV MCH 27 L RDW 20.3 H Plt Count 132 L Lymph % (Auto) Lymph # (Auto) Seg Neutrophils % Seg Neutrophils # ABG pH POC ABG pO2 174.4 H ABG Hemoglobin 10.3 L ABG Oxyhemoglobin 98.6 H ABG Sodium 129.9 L ABG Potassium 3.2 L ABG Glucose 202 H Sodium Potassium Chloride Carbon Dioxide BUN Creatinine Glucose POC Glucose 193 H Calcium Phosphorus Total Protein Albumin Arterial Blood Glucose 202 H Arterial Blood Ionized Calcium Phenytoin Valproic Acid 01/16/21 01/16/21 01/16/21 05:17 09:15 11:33 WBC Hgb Hct MCV MCH RDW Plt Count Lymph % (Auto) Lymph # (Auto) Seg Neutrophils % Seg Neutrophils # ABG pH POC ABG pO2 ABG Hemoglobin ABG Oxyhemoglobin ABG Sodium ABG Potassium ABG Glucose Sodium Potassium 3.4 L Chloride Carbon Dioxide BUN 36 H Creatinine 3.2 H Glucose 216 H POC Glucose 174 H Calcium 8.3 L Phosphorus 1.10 L Total Protein Albumin Arterial Blood Glucose Arterial Blood Ionized Calcium Phenytoin 6.5 L Valproic Acid - Diagnostic Findings Chest x-ray: image reviewed Assessment and Plan 80 y/o with chronic seizure disorder, ESRD, HTN admitted with status epilepticus, requiring intubation for burst suppression. 1. Continue Versed at 3mg IV per Hour for the next 24 hours. 2. Repeat EEG tomorrow off Versed. 3. Will attempt to get this before HD tomorrow. 4. HD per renal, tomorrow as patient got HD yesterday CCT 31 minutes.
--- NOTE | 2021-01-16 13:39 | Progress Note ---
<ISAIAHRODRÍGUEZ H. - Last Filed: 01/16/21 14:30> Assessment and Plan Assessment and plan: 80-year-old male with ESRD on HD, HTN, CAD, cerebral arthrosclerosis, vascular dementia who is admitted for new onset seizures. On 01/15 patient was transferred to ICU and intubated for possible status epilepticus. Neuro: New onset seizure disorder; possibly be in status epilepticus. Continue Keppra, added fosphenytoin per neurology; may change to vimpat per neuro CT of the brain noted, no signs of acute infarct MRI showing subacute to chronic subdural hematoma. 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 EEG reviewed and discussed with neurology. Patient could possibly be in status epilepticus. -Sedated on Versed Neurology consulted, appreciate recommendations -01/14 EEG is significantly abnormal, diffuse background slowing in 3-4 Hz, patient had a vertex waves and sleep spindles noted bilaterally and centrally, 2 events of facial twitching with associated generalized tonic/clonic activities, lasting for at least 15 seconds each followed by suppressions, findings suggestive of encephalopathic process and/or higher tendency of possible focal seizures with generalization, possibility of source of blood loss cannot be totally excluded -01/15 EEG shows burst suppression pattern, intermittent sharp electric activity is noted throughout the recording, pronounced in the right frontal region, findings consistent with generalized seizure activity -01/16 eeg pending read -Repeat EEG tomorrow and depending on results may stop Versed and change phenytoin to Vimpat per neurology -Aspiration and seizures precautions Vascular dementia No behavioral disturbances Currently stable at this time Chronic subdural hematoma -Noted on MRI We will hold anticoagulation Cerebral atherosclerosis Hold antiplatelet therapy Cardio: Hypotension -Patient was on low-dose Levophed which has been titrated off and received 250 mL normal saline bolus on 01/15 -Blood pressure monitoring per protocol History of hypertension secondary to renal disease Hydralazine as needed, hold metoprolol in setting of hypotension Resp: Intubated for possible status epilepticus -Wean mechanical ventilation when appropriate -VAP bundle -SPO2 monitoring FEN/GI: End-stage renal disease on HD Nephrology consulted Dialysis per renal team -Renally dose medication -Avoid nephrotoxic medications Hypokalemia -01/16 potassium 3.4 -Repleted -Trend BMP Hypophosphatemia -01/16 phosphate 1.1 -Repeat phosphate and repeat level in a.m. Severe dysphagia; Failure to thrive Chronic PEG tube -On tube feedings, Accu-Cheks every 6, SSI Megace : NAD -Anuric Skin: NAD -Turning per protocol -Per RN, healed sacral ulcer CODE STATUS: Full DVT prophylaxis: SCDs to BLE while in bed, heparin subq Lines: PIV Disposition: ICU for now The high probability of a clinically significant, sudden or life threatening deterioration of the [neuro, resp] system(s) required my full and direct attention, intervention and personal management. The aggregate critical care time was [40] minutes. This time is in addition to time spent performing reported procedures but includes the following: [x] Data Review and interpretation [x] Patient assessment and monitoring of vital signs [x] Documentation [x] Medication orders and management History Interval history: This 80-year-old male who is a resident of a [place] [facility] facility with ESRD on HD Thursday, , Thursday), hyperlipidemia, hypertension, vascular dementia, cerebral sclerosis presents to the emergency department after suspected cardiac arrest and initiation of ACLS at the dialysis center 01/12/2021 however upon EMS arrival patient was noted to be actively seizing and chest compressions were discontinued. Upon arrival to the emergency department patient was found to have new onset seizure disorder, acidosis. Nephrology was consulted for ESRD. Patient was initially admitted to the telemetry floor under observation. 01/13/2021. Seizure precautions. Continue IV Keppra and await neurology evaluation. Check EEG and MRI. CT scan negative. Continue hemodialysis per nephrology recommendations. 01/14/2021. Patient is somnolent and lethargic. However, no new seizure activity noted. CT brain is remarkable for white matter changes. Continue seizure precautions. Follow-up EEG and MRI brain. Neurology decrease Keppra to 250 mg twice daily. Ativan as needed for seizure. Continue hemodialysis per nephrology recommendations. 01/15/2021: There is no overt seizure activity, however patient continues to be nonverbal. Patient seen after dialysis. Patient is not responsive to any verbal cues. Patient is moaning. 01/16: Patient had EEG today and was noted to be having seizure activity on 2 mg of Versed and this was uptitrated to 3 mg Versed. Neurology has been informed. Hypokalemia and hypophosphatemia addressed. Likely HD tomorrow. Hospitalist Physical - Constitutional Vitals: Temp Pulse Resp BP Pulse Ox 97.8 F 86 18 121/64 97 01/16/21 12:00 01/16/21 13:20 01/16/21 13:20 01/16/21 13:20 01/16/21 13:20 General appearance: Present: no acute distress, other (sedated on vent,, resting comfortably) - EENT ENT: poor dentition - Neck Neck: Present: normal ROM - Respiratory Respiratory effort: normal Respiratory: bilateral: CTA, diminished - Cardiovascular Rhythm: regular Heart Sounds: Present: S1 & S2. Absent: systolic murmur, diastolic murmur - Extremities Extremities: no ischemia, pulses intact, pulses symmetrical, normal temperature, normal color Peripheral Pulses: within normal limits - Abdominal General gastrointestinal: soft, non-tender, non-distended, normal bowel sounds - Integumentary Integumentary: Present: warm, dry - Psychiatric Psychiatric: other (sedated) - Neurologic Neurologic: other (moved BLE spontanously) - Allied Health Allied health notes reviewed: nursing, RT Results - Labs CBC & Chem 7: 01/16/21 05:17 01/16/21 05:17 Labs: Laboratory Last Values WBC 9.4 K/mm3 (4.5-11.0) 01/16/21 05:17 RBC 3.81 M/mm3 (3.65-5.03) 01/16/21 05:17 Hgb 10.4 gm/dl (11.8-15.2) L 01/16/21 05:17 Hct 31.8 % (35.5-45.6) L 01/16/21 05:17 MCV 84 fl (84-94) 01/16/21 05:17 MCH 27 pg (28-32) L 01/16/21 05:17 MCHC 33 % (32-34) 01/16/21 05:17 RDW 20.3 % (13.2-15.2) H 01/16/21 05:17 Plt Count 132 K/mm3 (140-440) L 01/16/21 05:17 Lymph % (Auto) 6.3 % (13.4-35.0) L 01/15/21 05:22 [place] % (Auto) 5.4 % (0.0-7.3) 01/15/21 05:22 Eos % (Auto) 0.0 % (0.0-4.3) 01/15/21 05:22 Baso % (Auto) 0.1 % (0.0-1.8) 01/15/21 05:22 Lymph # (Auto) 0.7 K/mm3 (1.2-5.4) L 01/15/21 05:22 [place] # (Auto) 0.6 K/mm3 (0.0-0.8) 01/15/21 05:22 Eos # (Auto) 0.0 K/mm3 (0.0-0.4) 01/15/21 05:22 Baso # (Auto) 0.0 K/mm3 (0.0-0.1) 01/15/21 05:22 Seg Neutrophils % 88.2 % (40.0-70.0) H 01/15/21 05:22 Seg Neutrophils # 9.8 K/mm3 (1.8-7.7) H 01/15/21 05:22 ABG pH 7.434 (7.320-7.450) 01/16/21 03:10 POC ABG pCO2 38.2 mmHg (32.0-48.0) 01/16/21 03:10 POC ABG pO2 174.4 mmHg (83-108) H 01/16/21 03:10 POC ABG HCO3 25.0 01/16/21 03:10 ABG O2 Saturation 99.5 (0-100) 01/16/21 03:10 POC ABG Base Excess 0.8 01/16/21 03:10 ABG Hemoglobin 10.3 (12.0-17.5) L 01/16/21 03:10 ABG Oxyhemoglobin 98.6 (94-98) H 01/16/21 03:10 ABG Methemoglobin 0.3 (0.0-1.5) 01/16/21 03:10 ABG Sodium 129.9 mmol/L (136.0-145.0) L 01/16/21 03:10 ABG Potassium 3.2 mmol/L (3.40-4.50) L 01/16/21 03:10 ABG Chloride 100.0 mmol/L (98-107) 01/16/21 03:10 ABG Glucose 202 mg/dL (65-95) H 01/16/21 03:10 Carboxyhemoglobin 0.6 (0.5-1.5) 01/16/21 03:10 FiO2 % 50.0 01/16/21 03:10 Sodium 137 mmol/L (137-145) D 01/16/21 05:17 Potassium 3.4 mmol/L (3.6-5.0) L 01/16/21 05:17 Chloride 99.6 mmol/L (98-107) 01/16/21 05:17 Carbon Dioxide 25 mmol/L (22-30) 01/16/21 05:17 Anion Gap 16 mmol/L 01/16/21 05:17 BUN 36 mg/dL (9-20) H 01/16/21 05:17 Creatinine 3.2 mg/dL (0.8-1.3) H 01/16/21 05:17 Estimated GFR 23 ml/min 01/16/21 05:17 BUN/Creatinine Ratio 11 % 01/16/21 05:17 Glucose 216 mg/dL (75-100) H 01/16/21 05:17 POC Glucose 174 mg/dL (70-105) H 01/16/21 11:33 Calcium 8.3 mg/dL (8.4-10.2) L 01/16/21 05:17 Phosphorus 1.10 mg/dL (2.5-4.5) L 01/16/21 05:17 Magnesium 1.80 mg/dL (1.7-2.3) 01/16/21 05:17 Total Bilirubin 0.30 mg/dL (0.1-1.2) 01/13/21 05:19 Direct Bilirubin < 0.2 mg/dL (0-0.2) 01/12/21 14:36 Indirect Bilirubin 0.1 mg/dL 01/12/21 14:36 AST 27 units/L (5-40) 01/13/21 05:19 ALT 10 units/L (7-56) 01/13/21 05:19 Alkaline Phosphatase 72 units/L (35-129) 01/13/21 05:19 Total Protein 5.8 g/dL (6.3-8.2) L 01/13/21 05:19 Albumin 3.3 g/dL (3.9-5) L 01/13/21 05:19 Albumin/Globulin Ratio 1.3 % 01/13/21 05:19 Arterial Blood Glucose 202 mg/dL (65-95) H 01/16/21 03:10 Arterial Blood Ionized Calcium 4.6 mg/dL (4.6-5.3) 01/16/21 03:10 Nasal Screen MRSA (PCR) Positive (Negative) 01/13/21 Unknown Phenytoin 6.5 ug/mL (10.0-20.0) L 01/16/21 09:15 Valproic Acid 45.9 ug/mL (50-100) L 01/15/21 08:56 Hepatitis A IgM Ab Non-reactive (NonReactive) 01/15/21 09:15 Hep Bs Antigen Non-reactive (Negative) 01/15/21 09:15 Hep B Core IgM Ab Non-reactive (NonReactive) 01/15/21 09:15 Hepatitis C Antibody Non-reactive (NonReactive) 01/15/21 09:15 Brewer/IV: Voiding Method Incontinent Active Medications - Current Medications Current Medications: Generic Name Dose Route Start Last Admin Trade Name Freq PRN Reason Stop Dose Admin Acetaminophen 650 mg 01/12/21 19:30 Acetaminophen 325 Mg Tab PO Q4H PRN Pain MILD(1-3)/Fever >100.5/ABEL Albuterol 2.5 mg 01/12/21 19:30 Albuterol 2.5 Mg/3 Ml Nebu IH Q4HRT PRN Shortness Of Breath Lipase/Protease/Amylase 1 each 01/13/21 10:11 Lipase 10,500/Protease 25,000/Amylase 43,750 (Units) Dr Silveira FEEDTUBE PRN PRN For Clogged Feeding Tube Atorvastatin Calcium 40 mg 01/12/21 22:00 01/15/21 21:09 Atorvastatin 40 Mg Tab PO 40 mg QHS NOLAN Administration Buprenorphine HCl 2 mg 01/12/21 18:54 Buprenorphine 2 Mg Tab Subl SL QDAY PRN Pain , Severe (7-10) Calcitriol 1 mcg 01/13/21 10:00 01/16/21 10:12 Calcitriol 0.5 Mcg Cap PO 1 mcg QDAY NOLAN Administration Docusate Sodium 100 mg 01/12/21 18:54 Docusate Sodium 100 Mg Cap PO BID PRN Constipation Doxazosin Mesylate 4 mg 01/13/21 10:00 01/16/21 10:00 Doxazosin 4 Mg Tab PO Not Given QDAY NOLAN Hydralazine HCl 5 mg 01/13/21 05:21 01/13/21 05:33 Hydralazine 20 Mg/1 Ml Inj IV 5 mg Q4H PRN Administration Hypertension Hydromorphone HCl 0.5 mg 01/12/21 19:30 01/15/21 10:04 Hydromorphone 1 Mg/1 Ml Inj IV 0.5 mg Q12H PRN Administration Pain , Severe (7-10) Hydrophilic Ointment 1 applic 01/15/21 17:14 Lip Therapy Vaseline TP Q2HR PRN Dry Lips Valproate Sodium 500 mg/ 105 mls @ 100 mls/hr 01/14/21 22:00 01/16/21 05:02 Sodium Chloride IV 100 mls/hr Q8H NOLAN Administration Sodium Chloride 100 mls @ 999 mls/hr 01/15/21 08:00 Nacl 0.9% IV DIONNA PRN Hypotension Fosphenytoin Sodium 100 mg.pe/ 102 mls @ 200 mls/hr 01/15/21 20:00 01/16/21 09:00 Sodium Chloride IV 200 mls/hr TID NOLAN Administration Norepinephrine 4 mg in 250 mls @ 7.5 mls/hr 01/15/21 19:00 01/16/21 09:15 Levophed Drip 4 Mg/Ns 250 Ml IV 0 mcg/min TITR NOLAN 0 mls/hr Titration Protocol 2 MCG/MIN Levetiracetam 250 mg/ Dextrose 52.5 mls @ 200 mls/hr 01/15/21 22:00 01/16/21 10:11 IV 200 mls/hr Q12HR NOLAN Administration Midazolam HCl 100 mg/ Sodium 100 mls @ 2 mls/hr 01/15/21 20:00 01/16/21 11:35 Chloride IV 3 mg/hr TITR NOLAN 3 mls/hr Titration Protocol 2 MG/HR Insulin Human Lispro 0 unit 01/16/21 00:00 01/16/21 12:21 Insulin Lispro 100 Unit/Ml SUB-Q 2 unit Q6HR NOLAN Administration Protocol Lansoprazole 30 mg 01/12/21 22:00 01/16/21 10:12 Lansoprazole 30 Mg Solutab FEEDTUBE 30 mg BID NOLAN Administration Linagliptin 5 mg 01/13/21 11:00 01/16/21 12:16 Linagliptin 5 Mg Tab PO 5 mg QDDIAB NOLAN Administration Megestrol Acetate 40 mg 01/13/21 10:00 01/16/21 12:16 Megestrol 40 Mg Tab PO 40 mg QDAY NOLAN Administration Midazolam HCl 2 mg 01/15/21 19:17 Midazolam 2 Mg/2 Ml Inj IV Q10MIN PRN Sedation Miscellaneous Medication 40 mg 01/13/21 10:00 Febuxostat [Febuxostat] PO QDAY NOLAN Miscellaneous Medication 1 drop 01/13/21 10:00 Ketotifen Fumarate [Ketotifen Fumarate] OU QDAY NOLAN Miscellaneous Medication 1 drop 01/12/21 22:00 Timolol Maleate [Timolol Maleate 0.25%] OP BID NOLAN Multi-Ingred Cream/Lotion/Oil/Oint 1 applic 01/15/21 17:14 Mineral Oil/Petrolatum, White Ophth Oint 3.5 Gm OU Q4HR PRN Dry Eye(s) Ondansetron HCl 4 mg 01/12/21 19:30 Ondansetron 4 Mg/2 Ml Inj IV Q8H PRN Nausea And Vomiting Oxycodone/Acetaminophen 1 tab 01/12/21 19:30 Oxycodone /Acetaminophen 5-325mg Tab PO Q12H PRN Pain, Moderate (4-6) Simple Syrup 15 ml 01/13/21 10:11 Simple Syrup 15 Ml FEEDTUBE PRN PRN Hypoglycemia Simple Syrup 30 ml 01/13/21 10:11 Simple Syrup 15 Ml FEEDTUBE PRN PRN Hypoglycemia Sodium Bicarbonate 325 mg 01/13/21 10:11 Sodium Bicarbonate 325 Mg Tab FEEDTUBE PRN PRN For Clogged Feeding Tube Sodium Chloride 10 ml 01/12/21 22:00 01/16/21 12:17 Sodium Chloride 0.9% 10 Ml Flush Syringe IV 10 ml BID NOLAN Administration Sodium Chloride 10 ml 01/12/21 19:30 Sodium Chloride 0.9% 10 Ml Flush Syringe IV PRN PRN LINE FLUSH Nutrition/Malnutrition Assess - Dietary Evaluation Nutrition/Malnutrition Findings: Nutrition Notes Start: 01/13/21 10:03 Freq: Status: Active Protocol: Document 01/15/21 15:01 CW (Rec: 01/15/21 15:06 CW [id number]) Nutrition Notes Need for Assessment generated from: MD Order,school nurse,MST Initial or Follow up Reassessment Current Diagnosis CKD (stage V CKD),Diabetes, Hypertension,Hyperlipidemia Other Pertinent Diagnosis on HD, dementia, new on set seizure disorder Current Diet Nepro at 38 ml/hr with a free water flush of 150 ml q4h Labs/Tests Na 130 BUN 349 Cr 4.2 BG 241 Pertinent Medications tradjenta megace renvela Height 5 ft 9 in Weight 56.1 kg [place] Body Weight (kg) 72.72 BMI 18.2 Weight Status Underweight Subjective/Other Information F/U for TF tolerance. TF running at goal and has been well tolerated. weight moderately stable. Percent of energy/protein needs met: 100%/100% Burn Absent Trauma Absent Difficulty In Swallowing,Chewing Current % PO Negligible Minimum of two criteria No #2 Nutrition Diagnosis Increased nutrient needs ( specify in comment below) As Evidenced by Signs and Symptoms pt with sacral wound an on HD Diagnosis Progress(for reassessment Continues documentation) #1 Nutrition Diagnosis Inadequate oral intake Diagnosis Progress(for reassessment Continues documentation) Is patient on ventilator? No Is Patient Ambulatory and/or Out of Bed No REE-([place]-confined to bed) 1508.844 Calculation Used for Recommendations [place] Additional Notes Protein: (>1.25g/kg) greater than 71g Fluid: 1ml/kcal or per MD Nutrition Intervention Change Diet Order: Start TF Nutrition Support: Nepro 1.8 at 38 ml/hr Flush 150 ml q4h Kcal 1,642 Protein (gm) 74 Fluid (mL) 611 Goal #1 Meet at least 75% of protein and energy needs via TF Goal #2 Wound healing Goal #3 Wt gain/maintenance Anticipated Discharge Needs: Nepro 1.8 at 38 ml/hr Flush 150 ml q4h Follow-Up By: 01/17/21 Additional Comments F/U for TF tolerance <DUY HOYT - Last Filed: 01/17/21 11:49> Assessment and Plan Assessment and plan: Agree with assessment and plan as outlined by nurse practitioner as above, I personally examined the patient, patient showed continue seizure activity on EEG, neurology has been notified, midazolam has been increased, repeat EEG pending, I have updated the patient's family. Patient continues to be intubated. Hospitalist Physical - Constitutional Vitals: Temp Pulse Resp BP Pulse Ox 97.7 F 86 17 107/63 97 01/17/21 07:00 01/17/21 09:00 01/17/21 09:00 01/17/21 09:17 01/17/21 09:00 Results - Labs CBC & Chem 7: 01/16/21 05:17 01/17/21 05:30 Labs: Laboratory Last Values WBC 9.4 K/mm3 (4.5-11.0) 01/16/21 05:17 RBC 3.81 M/mm3 (3.65-5.03) 01/16/21 05:17 Hgb 10.4 gm/dl (11.8-15.2) L 01/16/21 05:17 Hct 31.8 % (35.5-45.6) L 01/16/21 05:17 MCV 84 fl (84-94) 01/16/21 05:17 MCH 27 pg (28-32) L 01/16/21 05:17 MCHC 33 % (32-34) 01/16/21 05:17 RDW 20.3 % (13.2-15.2) H 01/16/21 05:17 Plt Count 132 K/mm3 (140-440) L 01/16/21 05:17 Lymph % (Auto) 6.3 % (13.4-35.0) L 01/15/21 05:22 [place] % (Auto) 5.4 % (0.0-7.3) 01/15/21 05:22 Eos % (Auto) 0.0 % (0.0-4.3) 01/15/21 05:22 Baso % (Auto) 0.1 % (0.0-1.8) 01/15/21 05:22 Lymph # (Auto) 0.7 K/mm3 (1.2-5.4) L 01/15/21 05:22 [place] # (Auto) 0.6 K/mm3 (0.0-0.8) 01/15/21 05:22 Eos # (Auto) 0.0 K/mm3 (0.0-0.4) 01/15/21 05:22 Baso # (Auto) 0.0 K/mm3 (0.0-0.1) 01/15/21 05:22 Seg Neutrophils % 88.2 % (40.0-70.0) H 01/15/21 05:22 Seg Neutrophils # 9.8 K/mm3 (1.8-7.7) H 01/15/21 05:22 ABG pH 7.435 (7.320-7.450) 01/17/21 04:00 POC ABG pCO2 34.1 mmHg (32.0-48.0) 01/17/21 04:00 POC ABG pO2 88.2 mmHg (83-108) 01/17/21 04:00 POC ABG HCO3 22.4 01/17/21 04:00 ABG O2 Saturation 96.8 (0-100) 01/17/21 04:00 POC ABG Base Excess -1.4 01/17/21 04:00 ABG Hemoglobin 10.1 (12.0-17.5) L 01/17/21 04:00 ABG Oxyhemoglobin 95.4 (94-98) 01/17/21 04:00 ABG Methemoglobin 0.3 (0.0-1.5) 01/17/21 04:00 ABG Sodium 130.1 mmol/L (136.0-145.0) L 01/17/21 04:00 ABG Potassium 3.3 mmol/L (3.40-4.50) L 01/17/21 04:00 ABG Chloride 102.0 mmol/L (98-107) 01/17/21 04:00 ABG Glucose 153 mg/dL (65-95) H 01/17/21 04:00 Carboxyhemoglobin 1.1 (0.5-1.5) 01/17/21 04:00 FiO2 % 25.0 01/17/21 04:00 Sodium 136 mmol/L (137-145) L 01/17/21 05:30 Potassium 3.5 mmol/L (3.6-5.0) L 01/17/21 05:30 Chloride 100.9 mmol/L (98-107) 01/17/21 05:30 Carbon Dioxide 24 mmol/L (22-30) 01/17/21 05:30 Anion Gap 15 mmol/L 01/17/21 05:30 BUN 48 mg/dL (9-20) H 01/17/21 05:30 Creatinine 3.5 mg/dL (0.8-1.3) H 01/17/21 05:30 Estimated GFR 20 ml/min 01/17/21 05:30 BUN/Creatinine Ratio 14 % 01/17/21 05:30 Glucose 165 mg/dL (75-100) H 01/17/21 05:30 POC Glucose 160 mg/dL (70-105) H 01/17/21 11:43 Calcium 8.0 mg/dL (8.4-10.2) L 01/17/21 05:30 Phosphorus 0.80 mg/dL (2.5-4.5) L* D 01/17/21 05:30 Magnesium 1.80 mg/dL (1.7-2.3) 01/16/21 05:17 Total Bilirubin 0.30 mg/dL (0.1-1.2) 01/13/21 05:19 Direct Bilirubin < 0.2 mg/dL (0-0.2) 01/12/21 14:36 Indirect Bilirubin 0.1 mg/dL 01/12/21 14:36 AST 27 units/L (5-40) 01/13/21 05:19 ALT 10 units/L (7-56) 01/13/21 05:19 Alkaline Phosphatase 72 units/L (35-129) 01/13/21 05:19 Total Protein 5.8 g/dL (6.3-8.2) L 01/13/21 05:19 Albumin 3.3 g/dL (3.9-5) L 01/13/21 05:19 Albumin/Globulin Ratio 1.3 % 01/13/21 05:19 Arterial Blood Glucose 153 mg/dL (65-95) H 01/17/21 04:00 Arterial Blood Ionized Calcium 4.7 mg/dL (4.6-5.3) 01/17/21 04:00 Nasal Screen MRSA (PCR) Positive (Negative) 01/13/21 Unknown Phenytoin 6.5 ug/mL (10.0-20.0) L 01/16/21 09:15 Valproic Acid 45.9 ug/mL (50-100) L 01/15/21 08:56 Coronavirus (PCR) Negative (Negative) 01/15/21 08:00 Hepatitis A IgM Ab Non-reactive (NonReactive) 01/15/21 09:15 Hep Bs Antigen Non-reactive (Negative) 01/15/21 09:15 Hep B Core IgM Ab Non-reactive (NonReactive) 01/15/21 09:15 Hepatitis C Antibody Non-reactive (NonReactive) 01/15/21 09:15 Brewer/IV: Voiding Method Incontinent Active Medications - Current Medications Current Medications: Generic Name Dose Route Start Last Admin Trade Name Freq PRN Reason Stop Dose Admin Acetaminophen 650 mg 01/12/21 19:30 Acetaminophen 325 Mg Tab PO Q4H PRN Pain MILD(1-3)/Fever >100.5/ABEL Albuterol 2.5 mg 01/12/21 19:30 Albuterol 2.5 Mg/3 Ml Nebu IH Q4HRT PRN Shortness Of Breath Lipase/Protease/Amylase 1 each 01/13/21 10:11 Lipase 10,500/Protease 25,000/Amylase 43,750 (Units) Dr Silveira FEEDTUBE PRN PRN For Clogged Feeding Tube Atorvastatin Calcium 40 mg 01/12/21 22:00 01/16/21 21:07 Atorvastatin 40 Mg Tab PO 40 mg QHS NOLAN Administration Calcitriol 1 mcg 01/13/21 10:00 01/17/21 09:16 Calcitriol 0.5 Mcg Cap PO 1 mcg QDAY NOLAN Administration Docusate Sodium 100 mg 01/17/21 09:00 Docusate Sodium 100 Mg/10 Ml Oral Liqd PO BID PRN Constipation Doxazosin Mesylate 4 mg 01/13/21 10:00 01/17/21 09:17 Doxazosin 4 Mg Tab PO Not Given QDAY NOLAN Hydralazine HCl 5 mg 01/13/21 05:21 01/13/21 05:33 Hydralazine 20 Mg/1 Ml Inj IV 5 mg Q4H PRN Administration Hypertension Hydromorphone HCl 0.5 mg 01/12/21 19:30 01/15/21 10:04 Hydromorphone 1 Mg/1 Ml Inj IV 0.5 mg Q12H PRN Administration Pain , Severe (7-10) Hydrophilic Ointment 1 applic 01/15/21 17:14 Lip Therapy Vaseline TP Q2HR PRN Dry Lips Valproate Sodium 500 mg/ 105 mls @ 100 mls/hr 01/14/21 22:00 01/16/21 21:07 Sodium Chloride IV 100 mls/hr Q8H NOLAN Administration Sodium Chloride 100 mls @ 999 mls/hr 01/15/21 08:00 Nacl 0.9% IV DIONNA PRN Hypotension Fosphenytoin Sodium 100 mg.pe/ 102 mls @ 200 mls/hr 01/15/21 20:00 01/17/21 09:15 Sodium Chloride IV 200 mls/hr TID NOLAN Administration Norepinephrine 4 mg in 250 mls @ 7.5 mls/hr 01/15/21 19:00 01/16/21 09:15 Levophed Drip 4 Mg/Ns 250 Ml IV 0 mcg/min TITR NOLAN 0 mls/hr Titration Protocol 2 MCG/MIN Levetiracetam 250 mg/ Dextrose 52.5 mls @ 200 mls/hr 01/15/21 22:00 01/17/21 09:15 IV 200 mls/hr Q12HR NOLAN Administration Midazolam HCl 100 mg/ Sodium 100 mls @ 2 mls/hr 01/15/21 20:00 01/17/21 09:17 Chloride IV 0 mg/hr TITR NOLAN 0 mls/hr Titration Protocol 2 MG/HR Sodium Phosphate 30 mmol/ 260 mls @ 40 mls/hr 01/17/21 08:15 01/17/21 09:15 Sodium Chloride IV 01/17/21 14:44 40 mls/hr ONCE ONE Administration Insulin Human Lispro 0 unit 01/16/21 00:00 01/17/21 00:55 Insulin Lispro 100 Unit/Ml SUB-Q 2 unit Q6HR NOLAN Administration Protocol Lansoprazole 30 mg 01/12/21 22:00 01/17/21 09:16 Lansoprazole 30 Mg Solutab FEEDTUBE 30 mg BID NOLAN Administration Linagliptin 5 mg 01/13/21 11:00 01/17/21 09:16 Linagliptin 5 Mg Tab PO 5 mg QDDIAB NOLAN Administration Midazolam HCl 2 mg 01/15/21 19:17 Midazolam 2 Mg/2 Ml Inj IV Q10MIN PRN Sedation Multi-Ingred Cream/Lotion/Oil/Oint 1 applic 01/15/21 17:14 Mineral Oil/Petrolatum, White Ophth Oint 3.5 Gm OU Q4HR PRN Dry Eye(s) Ondansetron HCl 4 mg 01/12/21 19:30 Ondansetron 4 Mg/2 Ml Inj IV Q8H PRN Nausea And Vomiting Oxycodone/Acetaminophen 1 tab 01/12/21 19:30 Oxycodone /Acetaminophen 5-325mg Tab PO Q12H PRN Pain, Moderate (4-6) Simple Syrup 15 ml 01/13/21 10:11 Simple Syrup 15 Ml FEEDTUBE PRN PRN Hypoglycemia Simple Syrup 30 ml 01/13/21 10:11 Simple Syrup 15 Ml FEEDTUBE PRN PRN Hypoglycemia Sodium Bicarbonate 325 mg 01/13/21 10:11 Sodium Bicarbonate 325 Mg Tab FEEDTUBE PRN PRN For Clogged Feeding Tube Sodium Chloride 10 ml 01/12/21 22:00 01/16/21 21:07 Sodium Chloride 0.9% 10 Ml Flush Syringe IV 10 ml BID NOLAN Administration Sodium Chloride 10 ml 01/12/21 19:30 Sodium Chloride 0.9% 10 Ml Flush Syringe IV PRN PRN LINE FLUSH Timolol Maleate 1 drops 01/17/21 10:00 Timolol 0.5% Ophth Soln 5 Ml OU QDAY NOLAN Nutrition/Malnutrition Assess - Dietary Evaluation Nutrition/Malnutrition Findings: Nutrition Notes Start: 01/13/21 10:03 Freq: Status: Active Protocol: Document 01/17/21 10:38 (Rec: 01/17/21 10:40 [id number]) Nutrition Notes Initial or Follow up Reassessment Current Diagnosis CKD (stage V CKD),Diabetes, Hypertension,Hyperlipidemia Other Pertinent Diagnosis on HD, dementia, new on set seizure disorder Current Diet Nepro 1.8 at 38 ml/hr Labs/Tests Na 136 K 3.5 Phos 0.8 Pertinent Medications sodium phosphate Height 5 ft 9 in Weight 56.1 kg [place] Body Weight (kg) 72.72 BMI 18.2 Weight Status Underweight Subjective/Other Information Observed TF running at goal rate and pt tolerating. Percent of energy/protein needs met: 100%/100% Burn Absent Trauma Absent Difficulty In Swallowing,Chewing Current % PO Negligible Minimum of two criteria No #2 Nutrition Diagnosis Increased nutrient needs ( specify in comment below) Diagnosis Progress(for reassessment Continues documentation) #1 Nutrition Diagnosis Inadequate oral intake Diagnosis Progress(for reassessment Continues documentation) Is patient on ventilator? No Is Patient Ambulatory and/or Out of Bed No REE-([place]-St. Jeor-confined to bed) 1508.844 Calculation Used for Recommendations [facility] Additional Notes Protein: (>1.25g/kg) greater than 71g Fluid: 1ml/kcal or per MD Nutrition Intervention Nutrition Support: Nepro 1.8 at 38 ml/hr Flush 150 ml q4h Kcal 1,642 Protein (gm) 74 Fluid (mL) 611 Goal #1 Meet at least 75% of protein and energy needs via TF Goal #2 Wound healing Goal #3 Wt gain/maintenance Anticipated Discharge Needs: Nepro 1.8 at 38 ml/hr Flush 150 ml q4h Follow-Up By: 01/24/21 Additional Comments FU for stable TF
[2021-01-16] MEDS ORDERED: SODIUM CHLORIDE 0.9% 1000 ML 1,000 ML IV ONE ×2 (16:00→16:50)
[2021-01-17] MEDS: INSULIN LISPRO 100 UNIT/ML SUB-Q SCH ×5 (00:55→23:34)
[2021-01-17] MEDS ORDERED: SODIUM PHOSPHATE 30 MMOL in SODIUM CHLORIDE 0.9% 500 ML 250 ML IV ONE ×2 (07:11→08:15)
--- NOTE | 2021-01-17 08:50 | Progress Note ---
Assessment and Plan Assessment and Plan # New onset of possible witnessed seizure during dialysis yesterday -CT brain is remarkable for white matter changes -Keppra 500 mg IV -MRI brain is notedright lateral subdural hematoma , and associated blood in cervical junction -EEG repeat today valproic acid , plus fosphenytoin -Seizure precaution -Cut down keppra to 250 mg bid -Ativan prn for seizure -Seizure precaution -R/O underlying infection. -Repeat EEG today still show recurrent generalized spike and slow with predominant right frontal and with burst supression battern # Advanced dementia -Ct white matter changes -truncal rigidity -? base line # End stage renal disease 23/2.6 -- today 48/3.5 for dialysis today -Nephrology team consulted in ED, -dialysis as per renal team, -avoid nephrotoxic agents. # DVT prophylaxis -SCD to bilateral lower extremities while in bed, prophylactic anticoagulation # Advance care planning -Disease education conducted, care plan discussed, diagnoses discussed, prognosis discussed, patient is full code. Patient family knowledge understanding agree with care plan, +30 minutes. plan 1-maintain keppra 250 bid 2- maintain valproic and check valproic acid #45 3-In ICU intubated on jasper 4- phsphenytoin load 10 mg/kg/bw then 100 mg IV tid 5- Repeat EEG today 6- hold versed will follow Subjective Date of service: 01/17/21 Principal diagnosis: witnessed seizure hx of ESRD ,hyponatremia Interval history: Intubated sedated slightly open eyes to sternal rub not follow command , no w itnessed seizure in ICU will stop versed repeat EEG today at time move feet on his own not follow command Objective - Vital Sign Vital Signs - 12hr 01/16/21 01/16/21 01/16/21 20:50 21:00 21:10 Temperature Pulse Rate 78 79 79 Pulse Rate [ From Monitor] Respiratory 19 21 20 Rate Blood Pressure 90/48 95/50 95/50 O2 Sat by Pulse 99 100 Oximetry 01/16/21 01/16/21 01/16/21 21:20 21:30 21:40 Temperature Pulse Rate 78 78 79 Pulse Rate [ From Monitor] Respiratory 19 19 18 Rate Blood Pressure 92/50 108/58 108/58 O2 Sat by Pulse 100 99 100 Oximetry 01/16/21 01/16/21 01/16/21 21:50 22:00 22:10 Temperature Pulse Rate 78 77 78 Pulse Rate [ From Monitor] Respiratory 19 19 19 Rate Blood Pressure 119/61 104/55 104/55 O2 Sat by Pulse 100 99 99 Oximetry 01/16/21 01/16/21 01/16/21 22:20 22:30 22:40 Temperature Pulse Rate 74 78 79 Pulse Rate [ From Monitor] Respiratory 19 19 19 Rate Blood Pressure 99/53 94/52 94/52 O2 Sat by Pulse 99 99 Oximetry 01/16/21 01/16/21 01/16/21 22:50 23:00 23:10 Temperature Pulse Rate 77 77 73 Pulse Rate [ From Monitor] Respiratory 20 18 18 Rate Blood Pressure 94/52 98/54 98/54 O2 Sat by Pulse 99 99 Oximetry 01/16/21 01/16/21 01/16/21 23:16 23:20 23:30 Temperature Pulse Rate 74 74 75 Pulse Rate [ From Monitor] Respiratory 18 18 Rate Blood Pressure 107/61 107/61 114/62 O2 Sat by Pulse 99 100 100 Oximetry 01/16/21 01/16/21 01/17/21 23:40 23:50 00:00 Temperature Pulse Rate 76 75 75 Pulse Rate [ 75 From Monitor] Respiratory 18 18 18 Rate Blood Pressure 114/62 107/61 93/52 O2 Sat by Pulse 99 99 99 Oximetry 01/17/21 01/17/21 01/17/21 00:04 00:10 00:20 Temperature Pulse Rate 75 75 76 Pulse Rate [ From Monitor] Respiratory 18 18 18 Rate Blood Pressure 93/52 93/52 95/51 O2 Sat by Pulse 99 100 99 Oximetry 01/17/21 01/17/21 01/17/21 00:30 00:35 00:40 Temperature Pulse Rate 75 75 76 Pulse Rate [ From Monitor] Respiratory 18 18 Rate Blood Pressure 100/51 100/51 O2 Sat by Pulse 100 Oximetry 01/17/21 01/17/21 01/17/21 00:50 01:00 01:10 Temperature Pulse Rate 75 76 76 Pulse Rate [ From Monitor] Respiratory 18 18 18 Rate Blood Pressure 95/51 115/62 115/62 O2 Sat by Pulse 100 99 100 Oximetry 01/17/21 01/17/21 01/17/21 01:20 01:30 01:40 Temperature Pulse Rate 76 76 78 Pulse Rate [ From Monitor] Respiratory 18 18 18 Rate Blood Pressure 121/60 111/59 111/59 O2 Sat by Pulse 100 99 100 Oximetry 01/17/21 01/17/21 01/17/21 01:50 02:00 02:10 Temperature Pulse Rate 78 78 80 Pulse Rate [ From Monitor] Respiratory 18 18 18 Rate Blood Pressure 110/53 110/53 98/53 O2 Sat by Pulse 99 99 99 Oximetry 01/17/21 01/17/21 01/17/21 02:20 02:30 02:40 Temperature Pulse Rate 75 81 75 Pulse Rate [ From Monitor] Respiratory 18 19 18 Rate Blood Pressure 105/58 109/56 109/56 O2 Sat by Pulse 100 99 99 Oximetry 01/17/21 01/17/21 01/17/21 02:50 03:00 03:10 Temperature Pulse Rate 76 76 76 Pulse Rate [ From Monitor] Respiratory 18 18 18 Rate Blood Pressure 104/55 101/57 101/57 O2 Sat by Pulse 99 99 Oximetry 01/17/21 01/17/21 01/17/21 03:14 03:20 03:30 Temperature Pulse Rate 75 77 76 Pulse Rate [ From Monitor] Respiratory 18 18 Rate Blood Pressure 110/61 103/60 O2 Sat by Pulse 99 100 Oximetry 01/17/21 01/17/21 01/17/21 03:40 03:50 04:00 Temperature 97.5 F L Pulse Rate 76 77 79 Pulse Rate [ 79 From Monitor] Respiratory 18 18 18 Rate Blood Pressure 103/60 108/56 119/62 O2 Sat by Pulse 100 100 99 Oximetry 01/17/21 01/17/21 01/17/21 04:10 04:20 04:30 Temperature Pulse Rate 76 77 78 Pulse Rate [ From Monitor] Respiratory 18 18 18 Rate Blood Pressure 119/62 115/62 119/63 O2 Sat by Pulse 100 100 99 Oximetry 01/17/21 01/17/21 01/17/21 04:35 04:40 04:50 Temperature Pulse Rate 80 79 80 Pulse Rate [ From Monitor] Respiratory 18 19 Rate Blood Pressure 119/63 113/61 O2 Sat by Pulse 100 100 Oximetry 01/17/21 01/17/21 01/17/21 05:00 05:10 05:20 Temperature Pulse Rate 80 80 80 Pulse Rate [ From Monitor] Respiratory 20 20 20 Rate Blood Pressure 117/61 119/63 116/63 O2 Sat by Pulse 99 100 100 Oximetry 01/17/21 01/17/21 01/17/21 05:30 05:40 05:50 Temperature Pulse Rate 83 81 78 Pulse Rate [ From Monitor] Respiratory 16 19 18 Rate Blood Pressure 119/66 119/66 127/70 O2 Sat by Pulse 100 98 98 Oximetry 01/17/21 01/17/21 01/17/21 06:00 06:10 06:20 Temperature Pulse Rate 77 81 77 Pulse Rate [ From Monitor] Respiratory 18 18 18 Rate Blood Pressure 119/66 119/66 124/66 O2 Sat by Pulse 97 98 98 Oximetry 01/17/21 01/17/21 01/17/21 06:30 07:00 07:18 Temperature 97.7 F Pulse Rate 79 79 Pulse Rate [ From Monitor] Respiratory 18 Rate Blood Pressure 115/62 128/71 O2 Sat by Pulse 97 98 Oximetry - General Apperance Constitutional: comfortable - EENT EENT: PERRL, mucous membranes moist - Respiratory Respiratory: chest non-tender, lungs clear, rhonchi - Cardiovascular Cardiovascular: regular rate, normal S1, normal S2 Extremities: no peripheral edema bilat, no clubbing, cyanosis - Gastrointestinal Gastrointestinal: normoactive bowel sounds - Integumentary Integumentary: normal - Neurologic Cranial nerve examination: PERRL, EOMI, other (pupil constricted ,EOMI , gag intact ) - Laboratory Findings CBC and BMP: 01/16/21 05:17 01/17/21 05:30 Abnormal Lab Findings: Abnormal Labs 01/12/21 01/12/21 01/12/21 14:12 14:36 14:36 WBC 11.2 H Hgb Hct MCV MCH 27 L RDW 21.0 H Plt Count Lymph % (Auto) Lymph # (Auto) Seg Neutrophils % 79.6 H Seg Neutrophils # 8.9 H ABG pH POC ABG pO2 ABG Hemoglobin ABG Oxyhemoglobin ABG Sodium ABG Potassium ABG Glucose Sodium 136 L Potassium Chloride 95.8 L Carbon Dioxide 19 L BUN Creatinine 2.0 H Glucose 163 H POC Glucose 166 H Calcium 8.2 L Phosphorus Total Protein 5.4 L Albumin 3.4 L Arterial Blood Glucose Arterial Blood Ionized Calcium Phenytoin Valproic Acid 01/13/21 01/13/21 01/13/21 05:19 12:14 16:16 WBC Hgb Hct MCV MCH RDW Plt Count Lymph % (Auto) Lymph # (Auto) Seg Neutrophils % Seg Neutrophils # ABG pH POC ABG pO2 ABG Hemoglobin ABG Oxyhemoglobin ABG Sodium ABG Potassium ABG Glucose Sodium 134 L Potassium Chloride 95.5 L Carbon Dioxide BUN 23 H Creatinine 2.6 H Glucose 168 H POC Glucose 142 H 163 H Calcium Phosphorus Total Protein 5.8 L Albumin 3.3 L Arterial Blood Glucose Arterial Blood Ionized Calcium Phenytoin Valproic Acid 01/13/21 01/13/21 01/14/21 20:22 23:57 06:31 WBC Hgb Hct MCV MCH RDW Plt Count Lymph % (Auto) Lymph # (Auto) Seg Neutrophils % Seg Neutrophils # ABG pH POC ABG pO2 ABG Hemoglobin ABG Oxyhemoglobin ABG Sodium ABG Potassium ABG Glucose Sodium Potassium Chloride Carbon Dioxide BUN Creatinine Glucose POC Glucose 209 H 189 H 236 H Calcium Phosphorus Total Protein Albumin Arterial Blood Glucose Arterial Blood Ionized Calcium Phenytoin Valproic Acid 01/14/21 01/14/21 01/14/21 08:57 08:57 12:22 WBC 12.0 H Hgb 11.3 L Hct 34.5 L MCV MCH RDW 20.6 H Plt Count Lymph % (Auto) 6.4 L Lymph # (Auto) 0.8 L Seg Neutrophils % 87.4 H Seg Neutrophils # 10.5 H ABG pH POC ABG pO2 ABG Hemoglobin ABG Oxyhemoglobin ABG Sodium ABG Potassium ABG Glucose Sodium 131 L Potassium Chloride 93.7 L Carbon Dioxide BUN 37 H Creatinine 3.7 H Glucose 261 H POC Glucose 280 H Calcium Phosphorus Total Protein Albumin Arterial Blood Glucose Arterial Blood Ionized Calcium Phenytoin Valproic Acid 01/14/21 01/14/21 01/15/21 16:15 22:28 04:43 WBC Hgb Hct MCV MCH RDW Plt Count Lymph % (Auto) Lymph # (Auto) Seg Neutrophils % Seg Neutrophils # ABG pH POC ABG pO2 ABG Hemoglobin ABG Oxyhemoglobin ABG Sodium ABG Potassium ABG Glucose Sodium Potassium Chloride Carbon Dioxide BUN Creatinine Glucose POC Glucose 289 H 252 H 243 H Calcium Phosphorus Total Protein Albumin Arterial Blood Glucose Arterial Blood Ionized Calcium Phenytoin Valproic Acid 01/15/21 01/15/21 01/15/21 05:22 05:22 08:56 WBC 11.1 H Hgb 11.0 L Hct 33.3 L MCV 83 L MCH 27 L RDW 20.6 H Plt Count Lymph % (Auto) 6.3 L Lymph # (Auto) 0.7 L Seg Neutrophils % 88.2 H Seg Neutrophils # 9.8 H ABG pH POC ABG pO2 ABG Hemoglobin ABG Oxyhemoglobin ABG Sodium ABG Potassium ABG Glucose Sodium 130 L Potassium Chloride 92.0 L Carbon Dioxide BUN 49 H Creatinine 4.2 H Glucose 241 H POC Glucose Calcium Phosphorus Total Protein Albumin Arterial Blood Glucose Arterial Blood Ionized Calcium Phenytoin Valproic Acid 45.9 L 01/15/21 01/15/21 01/15/21 16:42 18:14 23:10 WBC Hgb Hct MCV MCH RDW Plt Count Lymph % (Auto) Lymph # (Auto) Seg Neutrophils % Seg Neutrophils # ABG pH 7.463 H POC ABG pO2 377.4 H ABG Hemoglobin 11.6 L ABG Oxyhemoglobin 98.6 H ABG Sodium 130.1 L ABG Potassium ABG Glucose 254 H Sodium Potassium Chloride Carbon Dioxide BUN Creatinine Glucose POC Glucose 218 H 279 H Calcium Phosphorus Total Protein Albumin Arterial Blood Glucose 254 H Arterial Blood Ionized Calcium 4.5 L Phenytoin Valproic Acid 01/16/21 01/16/21 01/16/21 03:10 05:11 05:17 WBC Hgb 10.4 L Hct 31.8 L MCV MCH 27 L RDW 20.3 H Plt Count 132 L Lymph % (Auto) Lymph # (Auto) Seg Neutrophils % Seg Neutrophils # ABG pH POC ABG pO2 174.4 H ABG Hemoglobin 10.3 L ABG Oxyhemoglobin 98.6 H ABG Sodium 129.9 L ABG Potassium 3.2 L ABG Glucose 202 H Sodium Potassium Chloride Carbon Dioxide BUN Creatinine Glucose POC Glucose 193 H Calcium Phosphorus Total Protein Albumin Arterial Blood Glucose 202 H Arterial Blood Ionized Calcium Phenytoin Valproic Acid 01/16/21 01/16/21 01/16/21 05:17 09:15 11:33 WBC Hgb Hct MCV MCH RDW Plt Count Lymph % (Auto) Lymph # (Auto) Seg Neutrophils % Seg Neutrophils # ABG pH POC ABG pO2 ABG Hemoglobin ABG Oxyhemoglobin ABG Sodium ABG Potassium ABG Glucose Sodium Potassium 3.4 L Chloride Carbon Dioxide BUN 36 H Creatinine 3.2 H Glucose 216 H POC Glucose 174 H Calcium 8.3 L Phosphorus 1.10 L Total Protein Albumin Arterial Blood Glucose Arterial Blood Ionized Calcium Phenytoin 6.5 L Valproic Acid 01/16/21 01/17/21 01/17/21 18:13 00:10 04:00 WBC Hgb Hct MCV MCH RDW Plt Count Lymph % (Auto) Lymph # (Auto) Seg Neutrophils % Seg Neutrophils # ABG pH POC ABG pO2 ABG Hemoglobin 10.1 L ABG Oxyhemoglobin ABG Sodium 130.1 L ABG Potassium 3.3 L ABG Glucose 153 H Sodium Potassium Chloride Carbon Dioxide BUN Creatinine Glucose POC Glucose 162 H 150 H Calcium Phosphorus Total Protein Albumin Arterial Blood Glucose 153 H Arterial Blood Ionized Calcium Phenytoin Valproic Acid 01/17/21 01/17/21 05:30 05:48 WBC Hgb Hct MCV MCH RDW Plt Count Lymph % (Auto) Lymph # (Auto) Seg Neutrophils % Seg Neutrophils # ABG pH POC ABG pO2 ABG Hemoglobin ABG Oxyhemoglobin ABG Sodium ABG Potassium ABG Glucose Sodium 136 L Potassium 3.5 L Chloride Carbon Dioxide BUN 48 H Creatinine 3.5 H Glucose 165 H POC Glucose 149 H Calcium 8.0 L Phosphorus 0.80 L* D Total Protein Albumin Arterial Blood Glucose Arterial Blood Ionized Calcium Phenytoin Valproic Acid
[2021-01-17] MEDS ORDERED: DOCUSATE SODIUM 100 MG/10 ML ORAL LIQD PO PRN (09:00)
[2021-01-17] MEDS: SODIUM CHLORIDE IV SCH ×3 (09:15→20:45)
[2021-01-17] MEDS: FOSPHENYTOIN IV SCH ×3 (09:15→20:45)
[2021-01-17] MEDS: levETIRAcetam 250 MG in DEXTROSE 5% IN WATER (50 ML) 50 ML IV SCH ×2 (09:15→21:37)
[2021-01-17] MEDS: [UNRECOGNIZED DRUG - OTHER] IV SCH ×3 (09:15→20:45)
[2021-01-17] MEDS: LINAGLIPTIN 5 MG TAB PO SCH (09:16)
[2021-01-17] MEDS: CALCITRIOL 0.5 MCG CAP PO SCH (09:16)
[2021-01-17] MEDS: LANSOPRAZOLE 30 MG SOLUTAB FEEDTUBE SCH ×2 (09:16→21:37)
[2021-01-17] MEDS: DOXAZOSIN 4 MG TAB PO SCH (09:17)
--- NOTE | 2021-01-17 09:50 | Progress Note ---
Assessment and Plan 1.ESRD: Patient is on maintenance hemodialysis three times a week, TTS schedule. Last outpatient HD 01/12/2021. Meds dosage based on GFR. Hemodialysis: 01/15. 2. FEN: Volume overload, UF today. Hyponatremia, monitor. Replete Phos. Monitor lytes and volume status. 3. Acute resp failure: Currently intubated, on vent. Wean as tolerated. 4. Shock: Off pressors. Monitor. 5. New onset of possible witnessed seizure during dialysis: CT brain is remarkable for white matter changes. Valproate. S/p Keppra 500 mg IV. MRI brain: small SDH, chronic changes. EEG pending. Seizure precaution. Followed by Neuro. 6. Advanced dementia: CT white matter changes. 7. Failure to thrive: PEG tube. 8. Anemia, POA: Epogen with HD. 9. DM type 2. Subjective: Patient was seen and examined at the bedside. Examination: General appearance: well-developed, appears stated age, no distress, intubated, on vent HEENT: ATNC, CELINA Neck: Trachea midline Respiratory: ctab Cardiology: regular, S1S2, no murmur Abdomen: soft, not tender, BS heard, Peg tube noted Integumentary: warm, dry, no obvious rash Neurologic: not responding Ext: no edema noted Hemodialysis catheter: R IJ tunnel catheter Subjective Date of service: 01/17/21 Principal diagnosis: witnessed seizure hx of ESRD ,hyponatremia Objective - Vital Signs Vital signs: Vital Signs - 12hr 01/16/21 01/16/21 01/16/21 22:00 22:10 22:20 Temperature Pulse Rate 77 78 74 Pulse Rate [ From Monitor] Respiratory 19 19 19 Rate Blood Pressure 104/55 104/55 99/53 O2 Sat by Pulse 99 99 99 Oximetry 01/16/21 01/16/21 01/16/21 22:30 22:40 22:50 Temperature Pulse Rate 78 79 77 Pulse Rate [ From Monitor] Respiratory 19 19 20 Rate Blood Pressure 94/52 94/52 94/52 O2 Sat by Pulse 99 99 Oximetry 01/16/21 01/16/21 01/16/21 23:00 23:10 23:16 Temperature Pulse Rate 77 73 74 Pulse Rate [ From Monitor] Respiratory 18 18 Rate Blood Pressure 98/54 98/54 107/61 O2 Sat by Pulse 99 99 Oximetry 01/16/21 01/16/21 01/16/21 23:20 23:30 23:40 Temperature Pulse Rate 74 75 76 Pulse Rate [ From Monitor] Respiratory 18 18 18 Rate Blood Pressure 107/61 114/62 114/62 O2 Sat by Pulse 100 100 99 Oximetry 01/16/21 01/17/21 01/17/21 23:50 00:00 00:04 Temperature Pulse Rate 75 75 75 Pulse Rate [ 75 From Monitor] Respiratory 18 18 18 Rate Blood Pressure 107/61 93/52 93/52 O2 Sat by Pulse 99 99 99 Oximetry 01/17/21 01/17/21 01/17/21 00:10 00:20 00:30 Temperature Pulse Rate 75 76 75 Pulse Rate [ From Monitor] Respiratory 18 18 18 Rate Blood Pressure 93/52 95/51 100/51 O2 Sat by Pulse 100 99 Oximetry 01/17/21 01/17/21 01/17/21 00:35 00:40 00:50 Temperature Pulse Rate 75 76 75 Pulse Rate [ From Monitor] Respiratory 18 18 Rate Blood Pressure 100/51 95/51 O2 Sat by Pulse 100 100 Oximetry 01/17/21 01/17/21 01/17/21 01:00 01:10 01:20 Temperature Pulse Rate 76 76 76 Pulse Rate [ From Monitor] Respiratory 18 18 18 Rate Blood Pressure 115/62 115/62 121/60 O2 Sat by Pulse 99 100 100 Oximetry 01/17/21 01/17/21 01/17/21 01:30 01:40 01:50 Temperature Pulse Rate 76 78 78 Pulse Rate [ From Monitor] Respiratory 18 18 18 Rate Blood Pressure 111/59 111/59 110/53 O2 Sat by Pulse 99 100 99 Oximetry 01/17/21 01/17/21 01/17/21 02:00 02:10 02:20 Temperature Pulse Rate 78 80 75 Pulse Rate [ From Monitor] Respiratory 18 18 18 Rate Blood Pressure 110/53 98/53 105/58 O2 Sat by Pulse 99 99 100 Oximetry 01/17/21 01/17/21 01/17/21 02:30 02:40 02:50 Temperature Pulse Rate 81 75 76 Pulse Rate [ From Monitor] Respiratory 19 18 18 Rate Blood Pressure 109/56 109/56 104/55 O2 Sat by Pulse 99 99 99 Oximetry 01/17/21 01/17/21 01/17/21 03:00 03:10 03:14 Temperature Pulse Rate 76 76 75 Pulse Rate [ From Monitor] Respiratory 18 18 Rate Blood Pressure 101/57 101/57 110/61 O2 Sat by Pulse 99 99 Oximetry 01/17/21 01/17/21 01/17/21 03:20 03:30 03:40 Temperature Pulse Rate 77 76 76 Pulse Rate [ From Monitor] Respiratory 18 18 18 Rate Blood Pressure 103/60 103/60 O2 Sat by Pulse 100 100 Oximetry 01/17/21 01/17/21 01/17/21 03:50 04:00 04:10 Temperature 97.5 F L Pulse Rate 77 79 76 Pulse Rate [ 79 From Monitor] Respiratory 18 18 18 Rate Blood Pressure 108/56 119/62 119/62 O2 Sat by Pulse 100 99 100 Oximetry 01/17/21 01/17/21 01/17/21 04:20 04:30 04:35 Temperature Pulse Rate 77 78 80 Pulse Rate [ From Monitor] Respiratory 18 18 Rate Blood Pressure 115/62 119/63 O2 Sat by Pulse 100 99 Oximetry 01/17/21 01/17/21 01/17/21 04:40 04:50 05:00 Temperature Pulse Rate 79 80 80 Pulse Rate [ From Monitor] Respiratory 18 19 20 Rate Blood Pressure 119/63 113/61 117/61 O2 Sat by Pulse 100 100 99 Oximetry 01/17/21 01/17/21 01/17/21 05:10 05:20 05:30 Temperature Pulse Rate 80 80 83 Pulse Rate [ From Monitor] Respiratory 20 20 16 Rate Blood Pressure 119/63 116/63 119/66 O2 Sat by Pulse 100 100 100 Oximetry 01/17/21 01/17/21 01/17/21 05:40 05:50 06:00 Temperature Pulse Rate 81 78 77 Pulse Rate [ From Monitor] Respiratory 19 18 18 Rate Blood Pressure 119/66 127/70 119/66 O2 Sat by Pulse 98 98 97 Oximetry 01/17/21 01/17/21 01/17/21 06:10 06:20 06:30 Temperature Pulse Rate 81 77 79 Pulse Rate [ From Monitor] Respiratory 18 18 18 Rate Blood Pressure 119/66 124/66 115/62 O2 Sat by Pulse 98 98 97 Oximetry 01/17/21 01/17/21 01/17/21 06:40 06:50 07:00 Temperature 97.7 F Pulse Rate 77 77 78 Pulse Rate [ From Monitor] Respiratory 18 18 18 Rate Blood Pressure 119/66 113/63 111/63 O2 Sat by Pulse 98 98 98 Oximetry 01/17/21 01/17/21 01/17/21 07:10 07:18 07:20 Temperature Pulse Rate 78 79 79 Pulse Rate [ From Monitor] Respiratory 18 18 Rate Blood Pressure 111/63 128/71 128/71 O2 Sat by Pulse 99 98 98 Oximetry 01/17/21 01/17/21 01/17/21 07:30 07:40 07:50 Temperature Pulse Rate 78 81 82 Pulse Rate [ From Monitor] Respiratory 18 18 18 Rate Blood Pressure 124/68 124/68 132/73 O2 Sat by Pulse 100 98 98 Oximetry 01/17/21 01/17/21 01/17/21 08:00 08:10 08:20 Temperature Pulse Rate 84 86 84 Pulse Rate [ 96 H From Monitor] Respiratory 18 18 18 Rate Blood Pressure 131/71 124/68 136/75 O2 Sat by Pulse 98 99 98 Oximetry 01/17/21 01/17/21 01/17/21 08:30 08:40 08:50 Temperature Pulse Rate 82 83 85 Pulse Rate [ From Monitor] Respiratory 18 18 18 Rate Blood Pressure 129/69 129/69 127/73 O2 Sat by Pulse 98 98 99 Oximetry 01/17/21 01/17/21 09:00 09:17 Temperature Pulse Rate 86 Pulse Rate [ From Monitor] Respiratory 17 Rate Blood Pressure 137/75 107/63 O2 Sat by Pulse 97 Oximetry - Lab 01/16/21 05:17 01/17/21 05:30 Most recent lab results ABG pH 7.435 (7.320-7.450) 01/17/21 04:00 ABG O2 Saturation 96.8 (0-100) 01/17/21 04:00 Calcium 8.0 mg/dL (8.4-10.2) L 01/17/21 05:30 Phosphorus 0.80 mg/dL (2.5-4.5) L* D 01/17/21 05:30 Magnesium 1.80 mg/dL (1.7-2.3) 01/16/21 05:17 Medications & Allergies - Medications Allergies/Adverse Reactions: Allergies No Known Allergies Allergy (Verified 08/14/19 16:11) Home Medications: Home Medications Medication Instructions Recorded Confirmed Last Taken Type Alogliptin Benzoate [Alogliptin] 1 tab PO DAILY 10/02/20 10/25/20 Unknown His tory Sevelamer Carbonate [Renvela] 800 mg PO TIDWM 10/02/20 10/25/20 Unknown History buprenorphine hcl [Subutex] 2 mg SL QDAY PRN 10/02/20 10/25/20 Unknown History AtorvaSTATin [Lipitor] 40 mg PO QHS #30 10/11/20 10/25/20 Unknown Rx Docusate Sodium [Colace CAP] 100 mg PO BID PRN #60 cap 10/11/20 10/25/20 Unknown Rx Doxazosin [Cardura] 4 mg PO QDAY #30 10/11/20 10/25/20 Unknown Rx Febuxostat 40 mg PO QDAY #30 10/11/20 10/25/20 Unknown Rx Ketotifen Fumarate 1 drop OU QDAY #1 bottle 10/11/20 10/25/20 Unknown Rx Lansoprazole Solutab [Prevacid 30 mg FEEDTUBE BID #60 tab.rapdis 10/11/20 10/25/20 Unknown Rx Solutab] Megestrol Acetate 40 mg PO QDAY #30 10/11/20 10/25/20 Unknown Rx Metoprolol [Lopressor TAB] 12.5 mg PO BID #60 tablet 10/11/20 10/25/20 Unknown Rx calcitrioL [Rocaltrol] 1 mcg PO QDAY #30 cap 10/11/20 10/25/20 Unknown Rx timoloL maleate [Timolol Maleate 1 drop OP BID #1 bottle 10/11/20 10/25/20 Unknown Rx 0.25%] Active Medications: Generic Name Dose Route Start Last Admin Trade Name Freq PRN Reason Stop Dose Admin Acetaminophen 650 mg 01/12/21 19:30 Acetaminophen 325 Mg Tab PO Q4H PRN Pain MILD(1-3)/Fever >100.5/ABEL Albuterol 2.5 mg 01/12/21 19:30 Albuterol 2.5 Mg/3 Ml Nebu IH Q4HRT PRN Shortness Of Breath Lipase/Protease/Amylase 1 each 01/13/21 10:11 Lipase 10,500/Protease 25,000/Amylase 43,750 (Units) Dr Silveira FEEDTUBE PRN PRN For Clogged Feeding Tube Atorvastatin Calcium 40 mg 01/12/21 22:00 01/16/21 21:07 Atorvastatin 40 Mg Tab PO 40 mg QHS NOLAN Administration Calcitriol 1 mcg 01/13/21 10:00 01/17/21 09:16 Calcitriol 0.5 Mcg Cap PO 1 mcg QDAY NOLAN Administration Docusate Sodium 100 mg 01/17/21 09:00 Docusate Sodium 100 Mg/10 Ml Oral Liqd PO BID PRN Constipation Doxazosin Mesylate 4 mg 01/13/21 10:00 01/17/21 09:17 Doxazosin 4 Mg Tab PO Not Given QDAY NOLAN Hydralazine HCl 5 mg 01/13/21 05:21 01/13/21 05:33 Hydralazine 20 Mg/1 Ml Inj IV 5 mg Q4H PRN Administration Hypertension Hydromorphone HCl 0.5 mg 01/12/21 19:30 01/15/21 10:04 Hydromorphone 1 Mg/1 Ml Inj IV 0.5 mg Q12H PRN Administration Pain , Severe (7-10) Hydrophilic Ointment 1 applic 01/15/21 17:14 Lip Therapy Vaseline TP Q2HR PRN Dry Lips Valproate Sodium 500 mg/ 105 mls @ 100 mls/hr 01/14/21 22:00 01/16/21 21:07 Sodium Chloride IV 100 mls/hr Q8H NOLAN Administration Sodium Chloride 100 mls @ 999 mls/hr 01/15/21 08:00 Nacl 0.9% IV DIONNA PRN Hypotension Fosphenytoin Sodium 100 mg.pe/ 102 mls @ 200 mls/hr 01/15/21 20:00 01/17/21 09:15 Sodium Chloride IV 200 mls/hr TID NOLAN Administration Norepinephrine 4 mg in 250 mls @ 7.5 mls/hr 01/15/21 19:00 01/16/21 09:15 Levophed Drip 4 Mg/Ns 250 Ml IV 0 mcg/min TITR NOLAN 0 mls/hr Titration Protocol 2 MCG/MIN Levetiracetam 250 mg/ Dextrose 52.5 mls @ 200 mls/hr 01/15/21 22:00 01/17/21 09:15 IV 200 mls/hr Q12HR NOLAN Administration Midazolam HCl 100 mg/ Sodium 100 mls @ 2 mls/hr 01/15/21 20:00 01/17/21 09:17 Chloride IV 0 mg/hr TITR NOLAN 0 mls/hr Titration Protocol 2 MG/HR Sodium Phosphate 30 mmol/ 260 mls @ 40 mls/hr 01/17/21 08:15 01/17/21 09:15 Sodium Chloride IV 01/17/21 14:44 40 mls/hr ONCE ONE Administration Insulin Human Lispro 0 unit 01/16/21 00:00 01/17/21 00:55 Insulin Lispro 100 Unit/Ml SUB-Q 2 unit Q6HR NOLAN Administration Protocol Lansoprazole 30 mg 01/12/21 22:00 01/17/21 09:16 Lansoprazole 30 Mg Solutab FEEDTUBE 30 mg BID NOLAN Administration Linagliptin 5 mg 01/13/21 11:00 01/17/21 09:16 Linagliptin 5 Mg Tab PO 5 mg QDDIAB NOLAN Administration Midazolam HCl 2 mg 01/15/21 19:17 Midazolam 2 Mg/2 Ml Inj IV Q10MIN PRN Sedation Multi-Ingred Cream/Lotion/Oil/Oint 1 applic 01/15/21 17:14 Mineral Oil/Petrolatum, White Ophth Oint 3.5 Gm OU Q4HR PRN Dry Eye(s) Ondansetron HCl 4 mg 01/12/21 19:30 Ondansetron 4 Mg/2 Ml Inj IV Q8H PRN Nausea And Vomiting Oxycodone/Acetaminophen 1 tab 01/12/21 19:30 Oxycodone /Acetaminophen 5-325mg Tab PO Q12H PRN Pain, Moderate (4-6) Simple Syrup 15 ml 01/13/21 10:11 Simple Syrup 15 Ml FEEDTUBE PRN PRN Hypoglycemia Simple Syrup 30 ml 01/13/21 10:11 Simple Syrup 15 Ml FEEDTUBE PRN PRN Hypoglycemia Sodium Bicarbonate 325 mg 01/13/21 10:11 Sodium Bicarbonate 325 Mg Tab FEEDTUBE PRN PRN For Clogged Feeding Tube Sodium Chloride 10 ml 01/12/21 22:00 01/16/21 21:07 Sodium Chloride 0.9% 10 Ml Flush Syringe IV 10 ml BID NOLAN Administration Sodium Chloride 10 ml 01/12/21 19:30 Sodium Chloride 0.9% 10 Ml Flush Syringe IV PRN PRN LINE FLUSH Timolol Maleate 1 drops 01/17/21 10:00 Timolol 0.5% Ophth Soln 5 Ml OU QDAY NOLAN
--- NOTE | 2021-01-17 11:23 | Progress Note ---
<ISAIAHRODRÍGUEZ KylahFabio - Last Filed: 01/17/21 11:29> Assessment and Plan Assessment and plan: 80-year-old male with ESRD on HD, HTN, CAD, cerebral arthrosclerosis, vascular dementia who is admitted for new onset seizures. On 01/15 patient was transferred to ICU and intubated for possible status epilepticus. Neuro: New onset seizure disorder; possibly be in status epilepticus. Neurology consulted, appreciate recommendations CT of the brain noted, no signs of acute infarct MRI showing subacute to chronic subdural hematoma. 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 -Celebrex, Keppra, Depacon -01/14 EEG is significantly abnormal, diffuse background slowing in 3-4 Hz, patient had a vertex waves and sleep spindles noted bilaterally and centrally, 2 events of facial twitching with associated generalized tonic/clonic activities, lasting for at least 15 seconds each followed by suppressions, findings suggestive of encephalopathic process and/or higher tendency of possible focal seizures with generalization, possibility of source of blood loss cannot be totally excluded -01/15 EEG shows burst suppression pattern, intermittent sharp electric activity is noted throughout the recording, pronounced in the right frontal region, findings consistent with generalized seizure activity -01/16 EEG shows findings of generalized burst suppression as well as recurrent triphasic waves sinuses Rocephin for the process, and her drug effect, reports after stage cannot be excluded, possibility of toxic metabolic and/or hepatic and/or renal insufficiency cannot be excluded -01/17 EEG pending official read -Aspiration and seizures precautions Vascular dementia No behavioral disturbances Currently stable at this time Chronic subdural hematoma -Noted on MRI We will hold anticoagulation Cerebral atherosclerosis Hold antiplatelet therapy Cardio: Hypotension, resolved -Patient was on low-dose Levophed which has been titrated off and received IVF boluses -Blood pressure monitoring per protocol History of hypertension secondary to renal disease Hydralazine as needed, hold metoprolol in setting of hypotension and resume as needed Resp: Intubated for possible status epilepticus -Plan for extubation today FEN/GI: End-stage renal disease on HD Nephrology consulted Dialysis per renal team -Renally dose medication -Avoid nephrotoxic medications Hypokalemia -01/16 potassium 3.4, 01/17 K 3.5 -Trend BMP Hypophosphatemia -01/16 phosphate 1.1, 01/17 phosphate 0.8 -Repleat with IV phosphate -Trend Phos levels Severe dysphagia; Failure to thrive Chronic PEG tube -On tube feedings, Accu-Cheks every 6, SSI : NAD -Anuric Skin: NAD -Turning per protocol -Per RN, healed sacral ulcer CODE STATUS: Full DVT prophylaxis: SCDs to BLE while in bed, heparin subq Lines: PIV Disposition: ICU for now The high probability of a clinically significant, sudden or life threatening deterioration of the [neuro, resp] system(s) required my full and direct attention, intervention and personal management. The aggregate critical care time was [40] minutes. This time is in addition to time spent performing reported procedures but includes the following: [x] Data Review and interpretation [x] Patient assessment and monitoring of vital signs [x] Documentation [x] Medication orders and management History Interval history: This 80-year-old male who is a resident of a [facility]dc facility with ESRD on HD Thursday, , Thursday), hyperlipidemia, hypertension, vascular dementia, cerebral sclerosis presents to the emergency department after suspected cardiac arrest and initiation of ACLS at the dialysis center 01/12/2021 however upon EMS arrival patient was noted to be actively seizing and chest compressions were discontinued. Upon arrival to the emergency department patient was found to have new onset seizure disorder, acidosis. Nephrology was consulted for ESRD. Patient was initially admitted to the telemetry floor under observation. 01/13/2021. Seizure precautions. Continue IV Keppra and await neurology evaluation. Check EEG and MRI. CT scan negative. Continue hemodialysis per nephrology recommendations. 01/14/2021. Patient is somnolent and lethargic. However, no new seizure activity noted. CT brain is remarkable for white matter changes. Continue seizure precautions. Follow-up EEG and MRI brain. Neurology decrease Keppra to 250 mg twice daily. Ativan as needed for seizure. Continue hemodialysis per nephrology recommendations. 01/15/2021: There is no overt seizure activity, however patient continues to be nonverbal. Patient seen after dialysis. Patient is not responsive to any verbal cues. Patient is moaning. 01/16: Patient had EEG today and was noted to be having seizure activity on 2 mg of Versed and this was uptitrated to 3 mg Versed. Neurology has been informed. Hypokalemia and hypophosphatemia addressed. Likely HD tomorrow. 01/17: Repeat EEG completed today. Severe hypophosphatemia noted otday, repleted with IV phos. HD scheduled today. Hospitalist Physical - Constitutional Vitals: Temp Pulse Resp BP Pulse Ox 97.7 F 86 17 107/63 97 01/17/21 07:00 01/17/21 09:00 01/17/21 09:00 01/17/21 09:17 01/17/21 09:00 General appearance: Present: no acute distress, other ( resting comfortably on MV) - EENT Eyes: Present: PERRL, EOM intact ENT: clear oral mucosa - Neck Neck: Absent: masses or JVD, cervical LAD - Respiratory Respiratory effort: normal Respiratory: bilateral: diminished - Cardiovascular Rhythm: regular Heart Sounds: Present: S1 & S2. Absent: systolic murmur, diastolic murmur - Extremities Extremities: no ischemia, pulses intact, pulses symmetrical, No edema, normal temperature, normal color Peripheral Pulses: within normal limits - Abdominal General gastrointestinal: soft, non-tender, non-distended, normal bowel sounds - Integumentary Integumentary: Present: warm, dry - Neurologic Neurologic: moves all extremities - Allied Health Allied health notes reviewed: nursing, RT, social work Results - Labs CBC & Chem 7: 01/16/21 05:17 01/17/21 05:30 Labs: Laboratory Last Values WBC 9.4 K/mm3 (4.5-11.0) 01/16/21 05:17 RBC 3.81 M/mm3 (3.65-5.03) 01/16/21 05:17 Hgb 10.4 gm/dl (11.8-15.2) L 01/16/21 05:17 Hct 31.8 % (35.5-45.6) L 01/16/21 05:17 MCV 84 fl (84-94) 01/16/21 05:17 MCH 27 pg (28-32) L 01/16/21 05:17 MCHC 33 % (32-34) 01/16/21 05:17 RDW 20.3 % (13.2-15.2) H 01/16/21 05:17 Plt Count 132 K/mm3 (140-440) L 01/16/21 05:17 Lymph % (Auto) 6.3 % (13.4-35.0) L 01/15/21 05:22 [place] % (Auto) 5.4 % (0.0-7.3) 01/15/21 05:22 Eos % (Auto) 0.0 % (0.0-4.3) 01/15/21 05:22 Baso % (Auto) 0.1 % (0.0-1.8) 01/15/21 05:22 Lymph # (Auto) 0.7 K/mm3 (1.2-5.4) L 01/15/21 05:22 [place] # (Auto) 0.6 K/mm3 (0.0-0.8) 01/15/21 05:22 Eos # (Auto) 0.0 K/mm3 (0.0-0.4) 01/15/21 05:22 Baso # (Auto) 0.0 K/mm3 (0.0-0.1) 01/15/21 05:22 Seg Neutrophils % 88.2 % (40.0-70.0) H 01/15/21 05:22 Seg Neutrophils # 9.8 K/mm3 (1.8-7.7) H 01/15/21 05:22 ABG pH 7.435 (7.320-7.450) 01/17/21 04:00 POC ABG pCO2 34.1 mmHg (32.0-48.0) 01/17/21 04:00 POC ABG pO2 88.2 mmHg (83-108) 01/17/21 04:00 POC ABG HCO3 22.4 01/17/21 04:00 ABG O2 Saturation 96.8 (0-100) 01/17/21 04:00 POC ABG Base Excess -1.4 01/17/21 04:00 ABG Hemoglobin 10.1 (12.0-17.5) L 01/17/21 04:00 ABG Oxyhemoglobin 95.4 (94-98) 01/17/21 04:00 ABG Methemoglobin 0.3 (0.0-1.5) 01/17/21 04:00 ABG Sodium 130.1 mmol/L (136.0-145.0) L 01/17/21 04:00 ABG Potassium 3.3 mmol/L (3.40-4.50) L 01/17/21 04:00 ABG Chloride 102.0 mmol/L (98-107) 01/17/21 04:00 ABG Glucose 153 mg/dL (65-95) H 01/17/21 04:00 Carboxyhemoglobin 1.1 (0.5-1.5) 01/17/21 04:00 FiO2 % 25.0 01/17/21 04:00 Sodium 136 mmol/L (137-145) L 01/17/21 05:30 Potassium 3.5 mmol/L (3.6-5.0) L 01/17/21 05:30 Chloride 100.9 mmol/L (98-107) 01/17/21 05:30 Carbon Dioxide 24 mmol/L (22-30) 01/17/21 05:30 Anion Gap 15 mmol/L 01/17/21 05:30 BUN 48 mg/dL (9-20) H 01/17/21 05:30 Creatinine 3.5 mg/dL (0.8-1.3) H 01/17/21 05:30 Estimated GFR 20 ml/min 01/17/21 05:30 BUN/Creatinine Ratio 14 % 01/17/21 05:30 Glucose 165 mg/dL (75-100) H 01/17/21 05:30 POC Glucose 149 mg/dL (70-105) H 01/17/21 05:48 Calcium 8.0 mg/dL (8.4-10.2) L 01/17/21 05:30 Phosphorus 0.80 mg/dL (2.5-4.5) L* D 01/17/21 05:30 Magnesium 1.80 mg/dL (1.7-2.3) 01/16/21 05:17 Total Bilirubin 0.30 mg/dL (0.1-1.2) 01/13/21 05:19 Direct Bilirubin < 0.2 mg/dL (0-0.2) 01/12/21 14:36 Indirect Bilirubin 0.1 mg/dL 01/12/21 14:36 AST 27 units/L (5-40) 01/13/21 05:19 ALT 10 units/L (7-56) 01/13/21 05:19 Alkaline Phosphatase 72 units/L (35-129) 01/13/21 05:19 Total Protein 5.8 g/dL (6.3-8.2) L 01/13/21 05:19 Albumin 3.3 g/dL (3.9-5) L 01/13/21 05:19 Albumin/Globulin Ratio 1.3 % 01/13/21 05:19 Arterial Blood Glucose 153 mg/dL (65-95) H 01/17/21 04:00 Arterial Blood Ionized Calcium 4.7 mg/dL (4.6-5.3) 01/17/21 04:00 Nasal Screen MRSA (PCR) Positive (Negative) 01/13/21 Unknown Phenytoin 6.5 ug/mL (10.0-20.0) L 01/16/21 09:15 Valproic Acid 45.9 ug/mL (50-100) L 01/15/21 08:56 Coronavirus (PCR) Negative (Negative) 01/15/21 08:00 Hepatitis A IgM Ab Non-reactive (NonReactive) 01/15/21 09:15 Hep Bs Antigen Non-reactive (Negative) 01/15/21 09:15 Hep B Core IgM Ab Non-reactive (NonReactive) 01/15/21 09:15 Hepatitis C Antibody Non-reactive (NonReactive) 01/15/21 09:15 Brewer/IV: Voiding Method Incontinent Active Medications - Current Medications Current Medications: Generic Name Dose Route Start Last Admin Trade Name Freq PRN Reason Stop Dose Admin Acetaminophen 650 mg 01/12/21 19:30 Acetaminophen 325 Mg Tab PO Q4H PRN Pain MILD(1-3)/Fever >100.5/ABEL Albuterol 2.5 mg 01/12/21 19:30 Albuterol 2.5 Mg/3 Ml Nebu IH Q4HRT PRN Shortness Of Breath Lipase/Protease/Amylase 1 each 01/13/21 10:11 Lipase 10,500/Protease 25,000/Amylase 43,750 (Units) Dr Silveira FEEDTUBE PRN PRN For Clogged Feeding Tube Atorvastatin Calcium 40 mg 01/12/21 22:00 01/16/21 21:07 Atorvastatin 40 Mg Tab PO 40 mg QHS NOLAN Administration Calcitriol 1 mcg 01/13/21 10:00 01/17/21 09:16 Calcitriol 0.5 Mcg Cap PO 1 mcg QDAY NOLAN Administration Docusate Sodium 100 mg 01/17/21 09:00 Docusate Sodium 100 Mg/10 Ml Oral Liqd PO BID PRN Constipation Doxazosin Mesylate 4 mg 01/13/21 10:00 01/17/21 09:17 Doxazosin 4 Mg Tab PO Not Given QDAY NOLAN Hydralazine HCl 5 mg 01/13/21 05:21 01/13/21 05:33 Hydralazine 20 Mg/1 Ml Inj IV 5 mg Q4H PRN Administration Hypertension Hydromorphone HCl 0.5 mg 01/12/21 19:30 01/15/21 10:04 Hydromorphone 1 Mg/1 Ml Inj IV 0.5 mg Q12H PRN Administration Pain , Severe (7-10) Hydrophilic Ointment 1 applic 01/15/21 17:14 Lip Therapy Vaseline TP Q2HR PRN Dry Lips Valproate Sodium 500 mg/ 105 mls @ 100 mls/hr 01/14/21 22:00 01/16/21 21:07 Sodium Chloride IV 100 mls/hr Q8H NOLAN Administration Sodium Chloride 100 mls @ 999 mls/hr 01/15/21 08:00 Nacl 0.9% IV DIONNA PRN Hypotension Fosphenytoin Sodium 100 mg.pe/ 102 mls @ 200 mls/hr 01/15/21 20:00 01/17/21 09:15 Sodium Chloride IV 200 mls/hr TID NOLAN Administration Norepinephrine 4 mg in 250 mls @ 7.5 mls/hr 01/15/21 19:00 01/16/21 09:15 Levophed Drip 4 Mg/Ns 250 Ml IV 0 mcg/min TITR NOLAN 0 mls/hr Titration Protocol 2 MCG/MIN Levetiracetam 250 mg/ Dextrose 52.5 mls @ 200 mls/hr 01/15/21 22:00 01/17/21 09:15 IV 200 mls/hr Q12HR NOLAN Administration Midazolam HCl 100 mg/ Sodium 100 mls @ 2 mls/hr 01/15/21 20:00 01/17/21 09:17 Chloride IV 0 mg/hr TITR NOLAN 0 mls/hr Titration Protocol 2 MG/HR Sodium Phosphate 30 mmol/ 260 mls @ 40 mls/hr 01/17/21 08:15 01/17/21 09:15 Sodium Chloride IV 01/17/21 14:44 40 mls/hr ONCE ONE Administration Insulin Human Lispro 0 unit 01/16/21 00:00 01/17/21 00:55 Insulin Lispro 100 Unit/Ml SUB-Q 2 unit Q6HR NOLAN Administration Protocol Lansoprazole 30 mg 01/12/21 22:00 01/17/21 09:16 Lansoprazole 30 Mg Solutab FEEDTUBE 30 mg BID NOLAN Administration Linagliptin 5 mg 01/13/21 11:00 01/17/21 09:16 Linagliptin 5 Mg Tab PO 5 mg QDDIAB NOLAN Administration Midazolam HCl 2 mg 01/15/21 19:17 Midazolam 2 Mg/2 Ml Inj IV Q10MIN PRN Sedation Multi-Ingred Cream/Lotion/Oil/Oint 1 applic 01/15/21 17:14 Mineral Oil/Petrolatum, White Ophth Oint 3.5 Gm OU Q4HR PRN Dry Eye(s) Ondansetron HCl 4 mg 01/12/21 19:30 Ondansetron 4 Mg/2 Ml Inj IV Q8H PRN Nausea And Vomiting Oxycodone/Acetaminophen 1 tab 01/12/21 19:30 Oxycodone /Acetaminophen 5-325mg Tab PO Q12H PRN Pain, Moderate (4-6) Simple Syrup 15 ml 01/13/21 10:11 Simple Syrup 15 Ml FEEDTUBE PRN PRN Hypoglycemia Simple Syrup 30 ml 01/13/21 10:11 Simple Syrup 15 Ml FEEDTUBE PRN PRN Hypoglycemia Sodium Bicarbonate 325 mg 01/13/21 10:11 Sodium Bicarbonate 325 Mg Tab FEEDTUBE PRN PRN For Clogged Feeding Tube Sodium Chloride 10 ml 01/12/21 22:00 01/16/21 21:07 Sodium Chloride 0.9% 10 Ml Flush Syringe IV 10 ml BID NOLAN Administration Sodium Chloride 10 ml 01/12/21 19:30 Sodium Chloride 0.9% 10 Ml Flush Syringe IV PRN PRN LINE FLUSH Timolol Maleate 1 drops 01/17/21 10:00 Timolol 0.5% Ophth Soln 5 Ml OU QDAY [facility] Nutrition/Malnutrition Assess - Dietary Evaluation Nutrition/Malnutrition Findings: Nutrition Notes Start: 01/13/21 10:03 Freq: Status: Active Protocol: Document 01/17/21 10:38 MIGNON (Rec: 01/17/21 10:40 MIGNON [id number]) Nutrition Notes Initial or Follow up Reassessment Current Diagnosis CKD (stage V CKD),Diabetes, Hypertension,Hyperlipidemia Other Pertinent Diagnosis on HD, dementia, new on set seizure disorder Current Diet Nepro 1.8 at 38 ml/hr Labs/Tests Na 136 K 3.5 Phos 0.8 Pertinent Medications sodium phosphate Height 5 ft 9 in Weight 56.1 kg [place] Body Weight (kg) 72.72 BMI 18.2 Weight Status Underweight Subjective/Other Information Observed TF running at goal rate and pt tolerating. Percent of energy/protein needs met: 100%/100% Burn Absent Trauma Absent Difficulty In Swallowing,Chewing Current % PO Negligible Minimum of two criteria No #2 Nutrition Diagnosis Increased nutrient needs ( specify in comment below) Diagnosis Progress(for reassessment Continues documentation) #1 Nutrition Diagnosis Inadequate oral intake Diagnosis Progress(for reassessment Continues documentation) Is patient on ventilator? No Is Patient Ambulatory and/or Out of Bed No REE-([place]-St. Jeor-confined to bed) 1508.844 Calculation Used for Recommendations [facility] Additional Notes Protein: (>1.25g/kg) greater than 71g Fluid: 1ml/kcal or per MD Nutrition Intervention Nutrition Support: Nepro 1.8 at 38 ml/hr Flush 150 ml q4h Kcal 1,642 Protein (gm) 74 Fluid (mL) 611 Goal #1 Meet at least 75% of protein and energy needs via TF Goal #2 Wound healing Goal #3 Wt gain/maintenance Anticipated Discharge Needs: Nepro 1.8 at 38 ml/hr Flush 150 ml q4h Follow-Up By: 01/24/21 Additional Comments FU for stable TF <DUY HOYT - Last Filed: 01/17/21 16:24> Assessment and Plan Assessment and plan: Reassessment plan as outlined by nurse practitioner as above, was at the bedside with neurology, reviewed the EEG, states that EEG has improved. Patient taken off of Versed, patient extubated, crackles are heard, most likely secondary to the medications he has been receiving and fluid boluses secondary to hypotension. Spoke with nephrology, they will dialyze patient today, fluid only. Blood pressure will be monitored closely. Patient is sleeping, satting at 100%, blood pressure is controlled. I called the family and updated them. Hospitalist Physical - Constitutional Vitals: Temp Pulse Resp BP Pulse Ox 98.5 F 92 H 23 131/71 100 01/17/21 15:40 01/17/21 16:15 01/17/21 15:40 01/17/21 16:15 01/17/21 15:40 Results - Labs CBC & Chem 7: 01/16/21 05:17 01/17/21 05:30 Labs: Laboratory Last Values WBC 9.4 K/mm3 (4.5-11.0) 01/16/21 05:17 RBC 3.81 M/mm3 (3.65-5.03) 01/16/21 05:17 Hgb 10.4 gm/dl (11.8-15.2) L 01/16/21 05:17 Hct 31.8 % (35.5-45.6) L 01/16/21 05:17 MCV 84 fl (84-94) 01/16/21 05:17 MCH 27 pg (28-32) L 01/16/21 05:17 MCHC 33 % (32-34) 01/16/21 05:17 RDW 20.3 % (13.2-15.2) H 01/16/21 05:17 Plt Count 132 K/mm3 (140-440) L 01/16/21 05:17 Lymph % (Auto) 6.3 % (13.4-35.0) L 01/15/21 05:22 [place] % (Auto) 5.4 % (0.0-7.3) 01/15/21 05:22 Eos % (Auto) 0.0 % (0.0-4.3) 01/15/21 05:22 Baso % (Auto) 0.1 % (0.0-1.8) 01/15/21 05:22 Lymph # (Auto) 0.7 K/mm3 (1.2-5.4) L 01/15/21 05:22 [place] # (Auto) 0.6 K/mm3 (0.0-0.8) 01/15/21 05:22 Eos # (Auto) 0.0 K/mm3 (0.0-0.4) 01/15/21 05:22 Baso # (Auto) 0.0 K/mm3 (0.0-0.1) 01/15/21 05:22 Seg Neutrophils % 88.2 % (40.0-70.0) H 01/15/21 05:22 Seg Neutrophils # 9.8 K/mm3 (1.8-7.7) H 01/15/21 05:22 ABG pH 7.435 (7.320-7.450) 01/17/21 04:00 POC ABG pCO2 34.1 mmHg (32.0-48.0) 01/17/21 04:00 POC ABG pO2 88.2 mmHg (83-108) 01/17/21 04:00 POC ABG HCO3 22.4 01/17/21 04:00 ABG O2 Saturation 96.8 (0-100) 01/17/21 04:00 POC ABG Base Excess -1.4 01/17/21 04:00 ABG Hemoglobin 10.1 (12.0-17.5) L 01/17/21 04:00 ABG Oxyhemoglobin 95.4 (94-98) 01/17/21 04:00 ABG Methemoglobin 0.3 (0.0-1.5) 01/17/21 04:00 ABG Sodium 130.1 mmol/L (136.0-145.0) L 01/17/21 04:00 ABG Potassium 3.3 mmol/L (3.40-4.50) L 01/17/21 04:00 ABG Chloride 102.0 mmol/L (98-107) 01/17/21 04:00 ABG Glucose 153 mg/dL (65-95) H 01/17/21 04:00 Carboxyhemoglobin 1.1 (0.5-1.5) 01/17/21 04:00 FiO2 % 25.0 01/17/21 04:00 Sodium 136 mmol/L (137-145) L 01/17/21 05:30 Potassium 3.5 mmol/L (3.6-5.0) L 01/17/21 05:30 Chloride 100.9 mmol/L (98-107) 01/17/21 05:30 Carbon Dioxide 24 mmol/L (22-30) 01/17/21 05:30 Anion Gap 15 mmol/L 01/17/21 05:30 BUN 48 mg/dL (9-20) H 01/17/21 05:30 Creatinine 3.5 mg/dL (0.8-1.3) H 01/17/21 05:30 Estimated GFR 20 ml/min 01/17/21 05:30 BUN/Creatinine Ratio 14 % 01/17/21 05:30 Glucose 165 mg/dL (75-100) H 01/17/21 05:30 POC Glucose 160 mg/dL (70-105) H 01/17/21 11:43 Calcium 8.0 mg/dL (8.4-10.2) L 01/17/21 05:30 Phosphorus 0.80 mg/dL (2.5-4.5) L* D 01/17/21 05:30 Magnesium 1.80 mg/dL (1.7-2.3) 01/16/21 05:17 Total Bilirubin 0.30 mg/dL (0.1-1.2) 01/13/21 05:19 Direct Bilirubin < 0.2 mg/dL (0-0.2) 01/12/21 14:36 Indirect Bilirubin 0.1 mg/dL 01/12/21 14:36 AST 27 units/L (5-40) 01/13/21 05:19 ALT 10 units/L (7-56) 01/13/21 05:19 Alkaline Phosphatase 72 units/L (35-129) 01/13/21 05:19 Ammonia 22.0 umol/L (25-60) L 01/17/21 11:14 Total Protein 5.8 g/dL (6.3-8.2) L 01/13/21 05:19 Albumin 3.3 g/dL (3.9-5) L 01/13/21 05:19 Albumin/Globulin Ratio 1.3 % 01/13/21 05:19 Arterial Blood Glucose 153 mg/dL (65-95) H 01/17/21 04:00 Arterial Blood Ionized Calcium 4.7 mg/dL (4.6-5.3) 01/17/21 04:00 Nasal Screen MRSA (PCR) Positive (Negative) 01/13/21 Unknown Phenytoin 6.5 ug/mL (10.0-20.0) L 01/16/21 09:15 Valproic Acid 45.9 ug/mL (50-100) L 01/15/21 08:56 Coronavirus (PCR) Negative (Negative) 01/15/21 08:00 Hepatitis A IgM Ab Non-reactive (NonReactive) 01/15/21 09:15 Hep Bs Antigen Non-reactive (Negative) 01/15/21 09:15 Hep B Core IgM Ab Non-reactive (NonReactive) 01/15/21 09:15 Hepatitis C Antibody Non-reactive (NonReactive) 01/15/21 09:15 Brewer/IV: Voiding Method Incontinent Active Medications - Current Medications Current Medications: Generic Name Dose Route Start Last Admin Trade Name Freq PRN Reason Stop Dose Admin Acetaminophen 650 mg 01/12/21 19:30 Acetaminophen 325 Mg Tab PO Q4H PRN Pain MILD(1-3)/Fever >100.5/ABEL Albuterol 2.5 mg 01/12/21 19:30 Albuterol 2.5 Mg/3 Ml Nebu IH Q4HRT PRN Shortness Of Breath Lipase/Protease/Amylase 1 each 01/13/21 10:11 Lipase 10,500/Protease 25,000/Amylase 43,750 (Units) Dr Silveira FEEDTUBE PRN PRN For Clogged Feeding Tube Atorvastatin Calcium 40 mg 01/12/21 22:00 01/16/21 21:07 Atorvastatin 40 Mg Tab PO 40 mg QHS NOLAN Administration Calcitriol 1 mcg 01/13/21 10:00 01/17/21 09:16 Calcitriol 0.5 Mcg Cap PO 1 mcg QDAY NOLAN Administration Docusate Sodium 100 mg 01/17/21 09:00 Docusate Sodium 100 Mg/10 Ml Oral Liqd PO BID PRN Constipation Doxazosin Mesylate 4 mg 01/13/21 10:00 01/17/21 09:17 Doxazosin 4 Mg Tab PO Not Given QDAY NOLAN Hydralazine HCl 5 mg 01/13/21 05:21 01/17/21 14:52 Hydralazine 20 Mg/1 Ml Inj IV 5 mg Q4H PRN Administration Hypertension Hydromorphone HCl 0.5 mg 01/12/21 19:30 01/15/21 10:04 Hydromorphone 1 Mg/1 Ml Inj IV 0.5 mg Q12H PRN Administration Pain , Severe (7-10) Hydrophilic Ointment 1 applic 01/15/21 17:14 Lip Therapy Vaseline TP Q2HR PRN Dry Lips Valproate Sodium 500 mg/ 105 mls @ 100 mls/hr 01/14/21 22:00 01/17/21 14:56 Sodium Chloride IV Not Given Q8H NOLAN Sodium Chloride 100 mls @ 999 mls/hr 01/15/21 08:00 Nacl 0.9% IV DIONNA PRN Hypotension Fosphenytoin Sodium 100 mg.pe/ 102 mls @ 200 mls/hr 01/15/21 20:00 01/17/21 14:08 Sodium Chloride IV 200 mls/hr TID NOLAN Administration Norepinephrine 4 mg in 250 mls @ 7.5 mls/hr 01/15/21 19:00 01/16/21 09:15 Levophed Drip 4 Mg/Ns 250 Ml IV 0 mcg/min TITR NOLAN 0 mls/hr Titration Protocol 2 MCG/MIN Levetiracetam 250 mg/ Dextrose 52.5 mls @ 200 mls/hr 01/15/21 22:00 01/17/21 09:15 IV 200 mls/hr Q12HR NOLAN Administration Midazolam HCl 100 mg/ Sodium 100 mls @ 2 mls/hr 01/15/21 20:00 01/17/21 09:17 Chloride IV 0 mg/hr TITR NOLAN 0 mls/hr Titration Protocol 2 MG/HR Insulin Human Lispro 0 unit 01/16/21 00:00 01/17/21 13:05 Insulin Lispro 100 Unit/Ml SUB-Q 2 unit Q6HR NOLAN Administration Protocol Lansoprazole 30 mg 01/12/21 22:00 01/17/21 09:16 Lansoprazole 30 Mg Solutab FEEDTUBE 30 mg BID NOLAN Administration Linagliptin 5 mg 01/13/21 11:00 01/17/21 09:16 Linagliptin 5 Mg Tab PO 5 mg QDDIAB NOLAN Administration Midazolam HCl 2 mg 01/15/21 19:17 Midazolam 2 Mg/2 Ml Inj IV Q10MIN PRN Sedation Multi-Ingred Cream/Lotion/Oil/Oint 1 applic 01/15/21 17:14 Mineral Oil/Petrolatum, White Ophth Oint 3.5 Gm OU Q4HR PRN Dry Eye(s) Ondansetron HCl 4 mg 01/12/21 19:30 Ondansetron 4 Mg/2 Ml Inj IV Q8H PRN Nausea And Vomiting Oxycodone/Acetaminophen 1 tab 01/12/21 19:30 Oxycodone /Acetaminophen 5-325mg Tab PO Q12H PRN Pain, Moderate (4-6) Simple Syrup 15 ml 01/13/21 10:11 Simple Syrup 15 Ml FEEDTUBE PRN PRN Hypoglycemia Simple Syrup 30 ml 01/13/21 10:11 Simple Syrup 15 Ml FEEDTUBE PRN PRN Hypoglycemia Sodium Bicarbonate 325 mg 01/13/21 10:11 Sodium Bicarbonate 325 Mg Tab FEEDTUBE PRN PRN For Clogged Feeding Tube Sodium Chloride 10 ml 01/12/21 22:00 01/16/21 21:07 Sodium Chloride 0.9% 10 Ml Flush Syringe IV 10 ml BID NOLAN Administration Sodium Chloride 10 ml 01/12/21 19:30 Sodium Chloride 0.9% 10 Ml Flush Syringe IV PRN PRN LINE FLUSH Timolol Maleate 1 drops 01/17/21 10:00 Timolol 0.5% Ophth Soln 5 Ml OU QDAY NOLAN Nutrition/Malnutrition Assess - Dietary Evaluation Nutrition/Malnutrition Findings: Nutrition Notes Start: 01/13/21 10:03 Freq: Status: Active Protocol: Document 01/17/21 10:38 (Rec: 01/17/21 10:40 [id number]) Nutrition Notes Initial or Follow up Reassessment Current Diagnosis CKD (stage V CKD),Diabetes, Hypertension,Hyperlipidemia Other Pertinent Diagnosis on HD, dementia, new on set seizure disorder Current Diet Nepro 1.8 at 38 ml/hr Labs/Tests Na 136 K 3.5 Phos 0.8 Pertinent Medications sodium phosphate Height 5 ft 9 in Weight 56.1 kg [place] Body Weight (kg) 72.72 BMI 18.2 Weight Status Underweight Subjective/Other Information Observed TF running at goal rate and pt tolerating. Percent of energy/protein needs met: 100%/100% Burn Absent Trauma Absent Difficulty In Swallowing,Chewing Current % PO Negligible Minimum of two criteria No #2 Nutrition Diagnosis Increased nutrient needs ( specify in comment below) Diagnosis Progress(for reassessment Continues documentation) #1 Nutrition Diagnosis Inadequate oral intake Diagnosis Progress(for reassessment Continues documentation) Is patient on ventilator? No Is Patient Ambulatory and/or Out of Bed No REE-(Bradford-St Jeor-confined to bed) 4190.444 Calculation Used for Recommendations [facility] Additional Notes Protein: (>1.25g/kg) greater than 71g Fluid: 1ml/kcal or per MD Nutrition Intervention Nutrition Support: Nepro 1.8 at 38 ml/hr Flush 150 ml q4h Kcal 1,642 Protein (gm) 74 Fluid (mL) 611 Goal #1 Meet at least 75% of protein and energy needs via TF Goal #2 Wound healing Goal #3 Wt gain/maintenance Anticipated Discharge Needs: Nepro 1.8 at 38 ml/hr Flush 150 ml q4h Follow-Up By: 01/24/21 Additional Comments FU for stable TF
[2021-01-17] MEDS: TIMOLOL 0.5% OPHTH SOLN 5 ML OU SCH (12:00)
--- NOTE | 2021-01-17 13:30 | Progress Note ---
Assessment and Plan 80 y/o with chronic seizure disorder, ESRD, HTN admitted with status epilepticus, requiring intubation for burst suppression. 01/17/21: Extubate. HD today per renal. If tolerates both, transfer back to floor on new anti-epileptic regimen 1. Continue Versed at 3mg IV per Hour for the next 24 hours. 2. Repeat EEG tomorrow off Versed. 3. Will attempt to get this before HD tomorrow. 4. HD per renal, tomorrow as patient got HD yesterday CCT 31 minutes. Subjective Date of service: 01/17/21 Principal diagnosis: witnessed seizure hx of ESRD ,hyponatremia Interval history: No acute events. EEG done this am off versed shows no seizure activity. Patient will wake up off sedation. Objective Vital Signs - 12hr 01/17/21 01/17/21 01/17/21 01:30 01:40 01:50 Temperature Pulse Rate 76 78 78 Pulse Rate [ From Monitor] Respiratory 18 18 18 Rate Blood Pressure 111/59 111/59 110/53 O2 Sat by Pulse 99 100 99 Oximetry 01/17/21 01/17/21 01/17/21 02:00 02:10 02:20 Temperature Pulse Rate 78 80 75 Pulse Rate [ From Monitor] Respiratory 18 18 18 Rate Blood Pressure 110/53 98/53 105/58 O2 Sat by Pulse 99 99 100 Oximetry 01/17/21 01/17/21 01/17/21 02:30 02:40 02:50 Temperature Pulse Rate 81 75 76 Pulse Rate [ From Monitor] Respiratory 19 18 18 Rate Blood Pressure 109/56 109/56 104/55 O2 Sat by Pulse 99 99 99 Oximetry 01/17/21 01/17/21 01/17/21 03:00 03:10 03:14 Temperature Pulse Rate 76 76 75 Pulse Rate [ From Monitor] Respiratory 18 18 Rate Blood Pressure 101/57 101/57 110/61 O2 Sat by Pulse 99 99 Oximetry 01/17/21 01/17/21 01/17/21 03:20 03:30 03:40 Temperature Pulse Rate 77 76 76 Pulse Rate [ From Monitor] Respiratory 18 18 18 Rate Blood Pressure 103/60 103/60 O2 Sat by Pulse 100 100 Oximetry 01/17/21 01/17/21 01/17/21 03:50 04:00 04:10 Temperature 97.5 F L Pulse Rate 77 79 76 Pulse Rate [ 79 From Monitor] Respiratory 18 18 18 Rate Blood Pressure 108/56 119/62 119/62 O2 Sat by Pulse 100 99 100 Oximetry 01/17/21 01/17/21 01/17/21 04:20 04:30 04:35 Temperature Pulse Rate 77 78 80 Pulse Rate [ From Monitor] Respiratory 18 18 Rate Blood Pressure 115/62 119/63 O2 Sat by Pulse 100 99 Oximetry 01/17/21 01/17/21 01/17/21 04:40 04:50 05:00 Temperature Pulse Rate 79 80 80 Pulse Rate [ From Monitor] Respiratory 18 19 20 Rate Blood Pressure 119/63 113/61 117/61 O2 Sat by Pulse 100 100 99 Oximetry 01/17/21 01/17/21 01/17/21 05:10 05:20 05:30 Temperature Pulse Rate 80 80 83 Pulse Rate [ From Monitor] Respiratory 20 20 16 Rate Blood Pressure 119/63 116/63 119/66 O2 Sat by Pulse 100 100 100 Oximetry 01/17/21 01/17/21 01/17/21 05:40 05:50 06:00 Temperature Pulse Rate 81 78 77 Pulse Rate [ From Monitor] Respiratory 19 18 18 Rate Blood Pressure 119/66 127/70 119/66 O2 Sat by Pulse 98 98 97 Oximetry 01/17/21 01/17/21 01/17/21 06:10 06:20 06:30 Temperature Pulse Rate 81 77 79 Pulse Rate [ From Monitor] Respiratory 18 18 18 Rate Blood Pressure 119/66 124/66 115/62 O2 Sat by Pulse 98 98 97 Oximetry 01/17/21 01/17/21 01/17/21 06:40 06:50 07:00 Temperature 97.7 F Pulse Rate 77 77 78 Pulse Rate [ From Monitor] Respiratory 18 18 18 Rate Blood Pressure 119/66 113/63 111/63 O2 Sat by Pulse 98 98 98 Oximetry 01/17/21 01/17/21 01/17/21 07:10 07:18 07:20 Temperature Pulse Rate 78 79 79 Pulse Rate [ From Monitor] Respiratory 18 18 Rate Blood Pressure 111/63 128/71 128/71 O2 Sat by Pulse 99 98 98 Oximetry 01/17/21 01/17/21 01/17/21 07:30 07:40 07:50 Temperature Pulse Rate 78 81 82 Pulse Rate [ From Monitor] Respiratory 18 18 18 Rate Blood Pressure 124/68 124/68 132/73 O2 Sat by Pulse 100 98 98 Oximetry 01/17/21 01/17/21 01/17/21 08:00 08:10 08:20 Temperature Pulse Rate 84 86 84 Pulse Rate [ 96 H From Monitor] Respiratory 18 18 18 Rate Blood Pressure 131/71 124/68 136/75 O2 Sat by Pulse 98 99 98 Oximetry 01/17/21 01/17/21 01/17/21 08:30 08:40 08:50 Temperature Pulse Rate 82 83 85 Pulse Rate [ From Monitor] Respiratory 18 18 18 Rate Blood Pressure 129/69 129/69 127/73 O2 Sat by Pulse 98 98 99 Oximetry 01/17/21 01/17/21 01/17/21 09:00 09:10 09:17 Temperature Pulse Rate 86 88 Pulse Rate [ From Monitor] Respiratory 17 20 Rate Blood Pressure 137/75 137/75 107/63 O2 Sat by Pulse 97 98 Oximetry 01/17/21 01/17/21 01/17/21 09:20 09:30 09:40 Temperature Pulse Rate 90 88 89 Pulse Rate [ From Monitor] Respiratory 17 18 18 Rate Blood Pressure 138/74 132/76 132/76 O2 Sat by Pulse 98 98 Oximetry 01/17/21 01/17/21 01/17/21 09:50 10:00 10:10 Temperature Pulse Rate 89 89 90 Pulse Rate [ From Monitor] Respiratory 16 18 18 Rate Blood Pressure 121/68 128/72 121/68 O2 Sat by Pulse 98 97 99 Oximetry 01/17/21 01/17/21 01/17/21 10:20 10:30 10:40 Temperature Pulse Rate 91 H 93 H 93 H Pulse Rate [ From Monitor] Respiratory 18 19 18 Rate Blood Pressure 134/73 129/72 129/72 O2 Sat by Pulse 99 99 99 Oximetry 01/17/21 01/17/21 01/17/21 10:50 11:00 11:10 Temperature Pulse Rate 91 H 92 H 92 H Pulse Rate [ From Monitor] Respiratory 18 19 18 Rate Blood Pressure 135/74 123/68 123/68 O2 Sat by Pulse 98 96 98 Oximetry 01/17/21 01/17/21 01/17/21 11:20 11:30 11:40 Temperature Pulse Rate 95 H 93 H 94 H Pulse Rate [ From Monitor] Respiratory 18 18 14 Rate Blood Pressure 133/72 127/68 127/68 O2 Sat by Pulse 98 98 98 Oximetry 01/17/21 01/17/21 01/17/21 11:48 11:50 12:00 Temperature Pulse Rate 99 H 96 H Pulse Rate [ From Monitor] Respiratory 14 39 H Rate Blood Pressure 130/70 136/69 O2 Sat by Pulse 98 100 97 Oximetry 01/17/21 01/17/21 01/17/21 12:10 12:20 12:30 Temperature Pulse Rate 96 H 102 H 96 H Pulse Rate [ From Monitor] Respiratory 33 H 34 H 28 H Rate Blood Pressure 136/69 140/74 153/81 O2 Sat by Pulse 100 100 100 Oximetry 01/17/21 01/17/21 12:40 12:50 Temperature Pulse Rate 96 H 96 H Pulse Rate [ From Monitor] Respiratory 28 H 26 H Rate Blood Pressure 153/81 161/83 O2 Sat by Pulse 100 100 Oximetry Constitutional: no acute distress, comatose (secondary to meds for seizure) ENT: other (orally intubated and sedated) Neck: supple Effort: normal Ascultation: Bilateral: clear Cardiovascular: regular rate and rhythm Gastrointestinal: normoactive bowel sounds Integumentary: normal Extremities: no edema, pulses normal CBC and BMP: 01/16/21 05:17 01/17/21 05:30 ABG, PT/INR, D-dimer: ABG ABG pH 7.435 (7.320-7.450) 01/17/21 04:00 POC ABG pCO2 34.1 mmHg (32.0-48.0) 01/17/21 04:00 POC ABG pO2 88.2 mmHg (83-108) 01/17/21 04:00 POC ABG HCO3 22.4 01/17/21 04:00 ABG O2 Saturation 96.8 (0-100) 01/17/21 04:00 Abnormal lab findings: Abnormal Labs 01/12/21 01/12/21 01/12/21 14:12 14:36 14:36 WBC 11.2 H Hgb Hct MCV MCH 27 L RDW 21.0 H Plt Count Lymph % (Auto) Lymph # (Auto) Seg Neutrophils % 79.6 H Seg Neutrophils # 8.9 H ABG pH POC ABG pO2 ABG Hemoglobin ABG Oxyhemoglobin ABG Sodium ABG Potassium ABG Glucose Sodium 136 L Potassium Chloride 95.8 L Carbon Dioxide 19 L BUN Creatinine 2.0 H Glucose 163 H POC Glucose 166 H Calcium 8.2 L Phosphorus Ammonia Total Protein 5.4 L Albumin 3.4 L Arterial Blood Glucose Arterial Blood Ionized Calcium Phenytoin Valproic Acid 01/13/21 01/13/21 01/13/21 05:19 12:14 16:16 WBC Hgb Hct MCV MCH RDW Plt Count Lymph % (Auto) Lymph # (Auto) Seg Neutrophils % Seg Neutrophils # ABG pH POC ABG pO2 ABG Hemoglobin ABG Oxyhemoglobin ABG Sodium ABG Potassium ABG Glucose Sodium 134 L Potassium Chloride 95.5 L Carbon Dioxide BUN 23 H Creatinine 2.6 H Glucose 168 H POC Glucose 142 H 163 H Calcium Phosphorus Ammonia Total Protein 5.8 L Albumin 3.3 L Arterial Blood Glucose Arterial Blood Ionized Calcium Phenytoin Valproic Acid 01/13/21 01/13/21 01/14/21 20:22 23:57 06:31 WBC Hgb Hct MCV MCH RDW Plt Count Lymph % (Auto) Lymph # (Auto) Seg Neutrophils % Seg Neutrophils # ABG pH POC ABG pO2 ABG Hemoglobin ABG Oxyhemoglobin ABG Sodium ABG Potassium ABG Glucose Sodium Potassium Chloride Carbon Dioxide BUN Creatinine Glucose POC Glucose 209 H 189 H 236 H Calcium Phosphorus Ammonia Total Protein Albumin Arterial Blood Glucose Arterial Blood Ionized Calcium Phenytoin Valproic Acid 01/14/21 01/14/21 01/14/21 08:57 08:57 12:22 WBC 12.0 H Hgb 11.3 L Hct 34.5 L MCV MCH RDW 20.6 H Plt Count Lymph % (Auto) 6.4 L Lymph # (Auto) 0.8 L Seg Neutrophils % 87.4 H Seg Neutrophils # 10.5 H ABG pH POC ABG pO2 ABG Hemoglobin ABG Oxyhemoglobin ABG Sodium ABG Potassium ABG Glucose Sodium 131 L Potassium Chloride 93.7 L Carbon Dioxide BUN 37 H Creatinine 3.7 H Glucose 261 H POC Glucose 280 H Calcium Phosphorus Ammonia Total Protein Albumin Arterial Blood Glucose Arterial Blood Ionized Calcium Phenytoin Valproic Acid 01/14/21 01/14/21 01/15/21 16:15 22:28 04:43 WBC Hgb Hct MCV MCH RDW Plt Count Lymph % (Auto) Lymph # (Auto) Seg Neutrophils % Seg Neutrophils # ABG pH POC ABG pO2 ABG Hemoglobin ABG Oxyhemoglobin ABG Sodium ABG Potassium ABG Glucose Sodium Potassium Chloride Carbon Dioxide BUN Creatinine Glucose POC Glucose 289 H 252 H 243 H Calcium Phosphorus Ammonia Total Protein Albumin Arterial Blood Glucose Arterial Blood Ionized Calcium Phenytoin Valproic Acid 01/15/21 01/15/21 01/15/21 05:22 05:22 08:56 WBC 11.1 H Hgb 11.0 L Hct 33.3 L MCV 83 L MCH 27 L RDW 20.6 H Plt Count Lymph % (Auto) 6.3 L Lymph # (Auto) 0.7 L Seg Neutrophils % 88.2 H Seg Neutrophils # 9.8 H ABG pH POC ABG pO2 ABG Hemoglobin ABG Oxyhemoglobin ABG Sodium ABG Potassium ABG Glucose Sodium 130 L Potassium Chloride 92.0 L Carbon Dioxide BUN 49 H Creatinine 4.2 H Glucose 241 H POC Glucose Calcium Phosphorus Ammonia Total Protein Albumin Arterial Blood Glucose Arterial Blood Ionized Calcium Phenytoin Valproic Acid 45.9 L 01/15/21 01/15/21 01/15/21 16:42 18:14 23:10 WBC Hgb Hct MCV MCH RDW Plt Count Lymph % (Auto) Lymph # (Auto) Seg Neutrophils % Seg Neutrophils # ABG pH 7.463 H POC ABG pO2 377.4 H ABG Hemoglobin 11.6 L ABG Oxyhemoglobin 98.6 H ABG Sodium 130.1 L ABG Potassium ABG Glucose 254 H Sodium Potassium Chloride Carbon Dioxide BUN Creatinine Glucose POC Glucose 218 H 279 H Calcium Phosphorus Ammonia Total Protein Albumin Arterial Blood Glucose 254 H Arterial Blood Ionized Calcium 4.5 L Phenytoin Valproic Acid 01/16/21 01/16/21 01/16/21 03:10 05:11 05:17 WBC Hgb 10.4 L Hct 31.8 L MCV MCH 27 L RDW 20.3 H Plt Count 132 L Lymph % (Auto) Lymph # (Auto) Seg Neutrophils % Seg Neutrophils # ABG pH POC ABG pO2 174.4 H ABG Hemoglobin 10.3 L ABG Oxyhemoglobin 98.6 H ABG Sodium 129.9 L ABG Potassium 3.2 L ABG Glucose 202 H Sodium Potassium Chloride Carbon Dioxide BUN Creatinine Glucose POC Glucose 193 H Calcium Phosphorus Ammonia Total Protein Albumin Arterial Blood Glucose 202 H Arterial Blood Ionized Calcium Phenytoin Valproic Acid 01/16/21 01/16/21 01/16/21 05:17 09:15 11:33 WBC Hgb Hct MCV MCH RDW Plt Count Lymph % (Auto) Lymph # (Auto) Seg Neutrophils % Seg Neutrophils # ABG pH POC ABG pO2 ABG Hemoglobin ABG Oxyhemoglobin ABG Sodium ABG Potassium ABG Glucose Sodium Potassium 3.4 L Chloride Carbon Dioxide BUN 36 H Creatinine 3.2 H Glucose 216 H POC Glucose 174 H Calcium 8.3 L Phosphorus 1.10 L Ammonia Total Protein Albumin Arterial Blood Glucose Arterial Blood Ionized Calcium Phenytoin 6.5 L Valproic Acid 01/16/21 01/17/21 01/17/21 18:13 00:10 04:00 WBC Hgb Hct MCV MCH RDW Plt Count Lymph % (Auto) Lymph # (Auto) Seg Neutrophils % Seg Neutrophils # ABG pH POC ABG pO2 ABG Hemoglobin 10.1 L ABG Oxyhemoglobin ABG Sodium 130.1 L ABG Potassium 3.3 L ABG Glucose 153 H Sodium Potassium Chloride Carbon Dioxide BUN Creatinine Glucose POC Glucose 162 H 150 H Calcium Phosphorus Ammonia Total Protein Albumin Arterial Blood Glucose 153 H Arterial Blood Ionized Calcium Phenytoin Valproic Acid 01/17/21 01/17/21 01/17/21 05:30 05:48 11:14 WBC Hgb Hct MCV MCH RDW Plt Count Lymph % (Auto) Lymph # (Auto) Seg Neutrophils % Seg Neutrophils # ABG pH POC ABG pO2 ABG Hemoglobin ABG Oxyhemoglobin ABG Sodium ABG Potassium ABG Glucose Sodium 136 L Potassium 3.5 L Chloride Carbon Dioxide BUN 48 H Creatinine 3.5 H Glucose 165 H POC Glucose 149 H Calcium 8.0 L Phosphorus 0.80 L* D Ammonia 22.0 L Total Protein Albumin Arterial Blood Glucose Arterial Blood Ionized Calcium Phenytoin Valproic Acid 01/17/21 11:43 WBC Hgb Hct MCV MCH RDW Plt Count Lymph % (Auto) Lymph # (Auto) Seg Neutrophils % Seg Neutrophils # ABG pH POC ABG pO2 ABG Hemoglobin ABG Oxyhemoglobin ABG Sodium ABG Potassium ABG Glucose Sodium Potassium Chloride Carbon Dioxide BUN Creatinine Glucose POC Glucose 160 H Calcium Phosphorus Ammonia Total Protein Albumin Arterial Blood Glucose Arterial Blood Ionized Calcium Phenytoin Valproic Acid
[2021-01-17] MEDS: VALPROATE SODIUM 500 MG in SODIUM CHLORIDE 0.9% 100 ML IV SCH ×3 (14:10→21:37)
[2021-01-17] MEDS: hydrALAZINE 20 MG/1 ML INJ IV PRN (14:52)
--- NOTE | 2021-01-17 15:19 | XRay Report ---
CHEST 1 VIEW 01/17/2021 3:02 PM INDICATION / CLINICAL INFORMATION: respiratory distress. COMPARISON: 01/15/2021 FINDINGS: SUPPORT DEVICES: Stable, satisfactory device positioning. HEART / MEDIASTINUM: No significant abnormality. LUNGS / PLEURA: Mild increased density left lower lung No pneumothorax. Signer Name: Conrado Alex MD Signed: 01/17/2021 3:14 PM Workstation Name: [id number]
[2021-01-17] MEDS ORDERED: fentaNYL 100 MCG/2 ML INJ ONE (17:49)
[2021-01-17] MEDS ORDERED: fentaNYL 100 MCG/2 ML INJ IV ONE (18:02)
[2021-01-17] MEDS ORDERED: MIDAZOLAM 2 MG/2 ML INJ IV ONE ×2 (18:03→18:05)
[2021-01-17] MEDS ORDERED: fentaNYL 250 MCG/5 ML INJ IV ONE (18:05)
[2021-01-17] MEDS ORDERED: fentaNYL 100 MCG/2 ML INJ IV PRN (18:10)
--- NOTE | 2021-01-17 18:22 | Event Note ---
Date: 01/17/21 174 Patient noted to be desaturating by RT. RT attempted to place bipap but patient SpO2 did not improve and remained in 70s. 174 patient was intubated with RT at bedside. Patient was given 25 mcgs of fentanyl and 2 mg of Versed for intubation. Dr. Roland and Dr. Gatica informed. CXR shows need to advance OETT, RT to advance. I was at bedside of the intubation. Fentanyl IVP ordered.
--- NOTE | 2021-01-17 18:39 | XRay Report ---
CHEST 1 VIEW 01/17/2021 5:30 PM INDICATION / CLINICAL INFORMATION: intubated. COMPARISON: One view of the chest from earlier today. FINDINGS: SUPPORT DEVICES: An ET tube has been placed that terminates 3.2 cm above the patricia. Unchanged right internal jugular vein perm catheter. HEART / MEDIASTINUM: No significant abnormality. LUNGS / PLEURA: Aeration of the left lung base has improved. Mild bibasilar opacities remain. No sign ificant pleural effusion. No pneumothorax. ADDITIONAL FINDINGS: No significant additional findings. IMPRESSION: 1. Satisfactory positioning of the ET tube. 2. Improved aeration of the left lung. Signer Name: Octaviano Maurice MD Signed: 01/17/2021 6:34 PM Workstation Name: [id number]
--- NOTE | 2021-01-18 01:13 | XRay Report ---
XR chest 1V ap INDICATION / CLINICAL INFORMATION: follow up respiratory failure. COMPARISON: 01/17/2021 FINDINGS: SUPPORT DEVICES: Stable, satisfactory device positioning. HEART /PULMONARY VASCULATURE: Unchanged LUNGS / PLEURA: Further improvement in aeration of the left lung base. No new or increasing airspace consolidation. ADDITIONAL FINDINGS: No significant additional findings. IMPRESSION: Further improvement in aeration of the left lung base. Signer Name: Ben Oakley MD Signed: 01/18/2021 1:08 AM Workstation Name: [id number]
[2021-01-18 05:13] LABS: Calcium 8.7 mg/dL (8.4-10.2)
[2021-01-18] MEDS: VALPROATE SODIUM 500 MG in SODIUM CHLORIDE 0.9% 100 ML IV SCH ×3 (06:53→22:52)
[2021-01-18] MEDS ORDERED: POTASSIUM CHLORIDE ER 20 MEQ TAB PO SCH (07:00)
[2021-01-18] MEDS: INSULIN LISPRO 100 UNIT/ML SUB-Q SCH ×3 (07:22→18:01)
[2021-01-18] MEDS ORDERED: PHOS-NAK POWDER PACKET PO SCH (08:00)
[2021-01-18] MEDS ORDERED: POTASSIUM CHLORIDE 20 MEQ PACKET FEEDTUBE SCH (09:00)
[2021-01-18] MEDS: [UNRECOGNIZED DRUG - OTHER] IV SCH ×3 (09:17→22:52)
[2021-01-18] MEDS: FOSPHENYTOIN IV SCH ×3 (09:17→22:52)
[2021-01-18] MEDS: SODIUM CHLORIDE IV SCH ×3 (09:17→22:52)
[2021-01-18] MEDS: LINAGLIPTIN 5 MG TAB PO SCH (09:18)
[2021-01-18] MEDS: LANSOPRAZOLE 30 MG SOLUTAB FEEDTUBE SCH ×2 (09:18→22:51)
[2021-01-18] MEDS: DOXAZOSIN 1 MG TAB PO SCH (09:18)
[2021-01-18] MEDS: TIMOLOL 0.5% OPHTH SOLN 5 ML OU SCH (09:19)
[2021-01-18] MEDS: CALCITRIOL 0.5 MCG CAP PO SCH (09:27)
[2021-01-18] MEDS: levETIRAcetam 250 MG in DEXTROSE 5% IN WATER (50 ML) 50 ML IV SCH ×2 (09:35→22:51)
[2021-01-18 10:40] LABS: Hematocrit 34.5 % (35.5-45.6); Hemoglobin 11.2 gm/dl (11.8-15.2); Mean Corpuscular HGB Conc 33 % (32-34); Mean Corpuscular Volume 83 fl (84-94); Platelet Count 116 K/mm3 (140-440); Red Blood Count 4.15 M/mm3 (3.65-5.03)
--- NOTE | 2021-01-18 10:43 | Progress Note ---
Assessment and Plan 1.ESRD: Patient is on maintenance hemodialysis three times a week, TTS schedule. Last outpatient HD 01/12/2021. Meds dosage based on GFR. Hemodialysis: 01/15, 01/16, 01/17(UF). 2. FEN: Volume overload, UF today. Hyponatremia, monitor. Replete Phos. Monitor lytes and volume status. 3. Acute resp failure: Currently intubated, on vent. Extubated 01/17. Re-intubated 01/17. Wean as tolerated. 4. Shock: Off pressors. Monitor. 5. New onset of possible witnessed seizure during dialysis: CT brain is remarkable for white matter changes. Valproate. S/p Keppra 500 mg IV. MRI brain: small SDH, chronic changes. Seizure precaution. Followed by Neuro. 6. Advanced dementia: CT white matter changes. 7. Failure to thrive: PEG tube. 8. Anemia, POA: Epogen with HD. 9. DM type 2. Subjective: Patient was seen and examined at the bedside. Examination: General appearance: well-developed, appears stated age, no distress, intubated, on vent HEENT: ATNC, CELINA Neck: Trachea midline Respiratory: ctab Cardiology: regular, S1S2, no murmur Abdomen: soft, not tender, BS heard, Peg tube noted Integumentary: warm, dry, no obvious rash Neurologic: not responding Ext: no edema noted Hemodialysis catheter: R IJ tunnel catheter Subjective Date of service: 01/18/21 Principal diagnosis: witnessed seizure hx of ESRD ,hyponatremia Objective - Vital Signs Vital signs: Vital Signs - 12hr 01/17/21 01/17/21 01/17/21 22:50 23:00 23:10 Temperature Pulse Rate 89 90 88 Pulse Rate [ From Monitor] Respiratory 20 20 19 Rate Blood Pressure 133/74 132/74 132/74 O2 Sat by Pulse 100 100 Oximetry 01/17/21 01/17/21 01/17/21 23:18 23:20 23:30 Temperature Pulse Rate 90 90 89 Pulse Rate [ From Monitor] Respiratory 23 18 21 Rate Blood Pressure 133/76 133/76 140/75 O2 Sat by Pulse 100 100 Oximetry 01/17/21 01/17/21 01/18/21 23:40 23:50 00:00 Temperature Pulse Rate 88 89 88 Pulse Rate [ 89 From Monitor] Respiratory 19 18 18 Rate Blood Pressure 140/75 124/71 128/71 O2 Sat by Pulse 100 100 99 Oximetry 01/18/21 01/18/21 01/18/21 00:07 00:10 00:20 Temperature Pulse Rate 90 88 91 H Pulse Rate [ From Monitor] Respiratory 20 26 H Rate Blood Pressure 128/71 128/71 135/73 O2 Sat by Pulse 100 100 100 Oximetry 01/18/21 01/18/21 01/18/21 00:30 00:40 00:50 Temperature Pulse Rate 87 86 87 Pulse Rate [ From Monitor] Respiratory 19 21 19 Rate Blood Pressure 139/73 139/73 143/71 O2 Sat by Pulse 100 100 100 Oximetry 01/18/21 01/18/21 01/18/21 01:00 01:10 01:20 Temperature Pulse Rate 86 90 91 H Pulse Rate [ From Monitor] Respiratory 18 20 23 Rate Blood Pressure 123/66 123/66 133/53 O2 Sat by Pulse 100 100 100 Oximetry 01/18/21 01/18/21 01/18/21 01:30 01:40 01:50 Temperature Pulse Rate 94 H 72 93 H Pulse Rate [ From Monitor] Respiratory 25 H 18 20 Rate Blood Pressure 138/56 138/56 118/52 O2 Sat by Pulse 100 100 100 Oximetry 01/18/21 01/18/21 01/18/21 02:00 02:10 02:20 Temperature Pulse Rate 95 H 94 H 94 H Pulse Rate [ From Monitor] Respiratory 20 21 21 Rate Blood Pressure 134/53 138/56 131/52 O2 Sat by Pulse 100 100 100 Oximetry 01/18/21 01/18/21 01/18/21 02:30 02:40 02:50 Temperature Pulse Rate 93 H 94 H 95 H Pulse Rate [ From Monitor] Respiratory 21 21 21 Rate Blood Pressure 130/52 130/52 121/53 O2 Sat by Pulse 100 100 100 Oximetry 01/18/21 01/18/21 01/18/21 03:00 03:10 03:20 Temperature Pulse Rate 96 H 89 96 H Pulse Rate [ From Monitor] Respiratory 19 22 21 Rate Blood Pressure 138/51 138/51 112/54 O2 Sat by Pulse 100 100 100 Oximetry 01/18/21 01/18/21 01/18/21 03:30 03:40 03:50 Temperature Pulse Rate 80 76 79 Pulse Rate [ From Monitor] Respiratory 22 20 21 Rate Blood Pressure 122/67 112/54 110/60 O2 Sat by Pulse 99 100 100 Oximetry 01/18/21 01/18/21 01/18/21 03:57 04:00 04:10 Temperature Pulse Rate 95 H 76 93 H Pulse Rate [ 78 From Monitor] Respiratory 20 23 Rate Blood Pressure 110/60 112/51 112/51 O2 Sat by Pulse 100 100 100 Oximetry 01/18/21 01/18/21 01/18/21 04:20 04:30 04:40 Temperature Pulse Rate 99 H 94 H 96 H Pulse Rate [ From Monitor] Respiratory 21 20 19 Rate Blood Pressure 123/55 129/69 129/69 O2 Sat by Pulse 100 100 100 Oximetry 01/18/21 01/18/21 01/18/21 04:50 05:00 05:10 Temperature Pulse Rate 98 H 95 H 78 Pulse Rate [ From Monitor] Respiratory 19 19 19 Rate Blood Pressure 117/72 133/47 129/69 O2 Sat by Pulse 100 100 100 Oximetry 01/18/21 01/18/21 01/18/21 05:20 05:30 05:40 Temperature Pulse Rate 96 H 96 H 78 Pulse Rate [ From Monitor] Respiratory 18 16 18 Rate Blood Pressure 115/52 97/73 97/73 O2 Sat by Pulse 100 86 100 Oximetry 01/18/21 01/18/21 01/18/21 05:50 06:00 06:10 Temperature Pulse Rate 94 H 107 H 78 Pulse Rate [ From Monitor] Respiratory 19 21 18 Rate Blood Pressure 118/63 110/49 110/49 O2 Sat by Pulse 100 96 99 Oximetry 01/18/21 01/18/21 01/18/21 06:20 06:30 06:40 Temperature Pulse Rate 101 H 95 H 78 Pulse Rate [ From Monitor] Respiratory 21 19 21 Rate Blood Pressure 114/53 115/66 115/66 O2 Sat by Pulse 100 100 95 Oximetry 01/18/21 01/18/21 01/18/21 06:50 07:00 07:10 Temperature 97.4 F L Pulse Rate 95 H 79 102 H Pulse Rate [ From Monitor] Respiratory 22 25 H 30 H Rate Blood Pressure 98/52 105/55 105/55 O2 Sat by Pulse 100 91 Oximetry 01/18/21 01/18/21 01/18/21 07:20 07:30 07:40 Temperature Pulse Rate 93 H 99 H 106 H Pulse Rate [ From Monitor] Respiratory 22 24 18 Rate Blood Pressure 100/52 109/57 109/57 O2 Sat by Pulse 89 94 99 Oximetry 01/18/21 01/18/21 01/18/21 07:50 08:00 08:10 Temperature Pulse Rate 100 H 102 H 100 H Pulse Rate [ From Monitor] Respiratory 22 21 19 Rate Blood Pressure 108/64 130/77 130/77 O2 Sat by Pulse 97 100 100 Oximetry 01/18/21 01/18/21 08:20 09:18 Temperature Pulse Rate 98 H 99 H Pulse Rate [ From Monitor] Respiratory 20 Rate Blood Pressure 141/78 119/69 O2 Sat by Pulse 100 Oximetry - Lab 01/18/21 10:20 01/18/21 04:16 Most recent lab results ABG pH 7.433 (7.320-7.450) 01/18/21 03:28 ABG O2 Saturation 99.8 (0-100) 01/18/21 03:28 Calcium 8.7 mg/dL (8.4-10.2) 01/18/21 04:16 Phosphorus 1.60 mg/dL (2.5-4.5) L D 01/18/21 04:16 Magnesium 2.00 mg/dL (1.7-2.3) 01/18/21 04:16 Medications & Allergies - Medications Allergies/Adverse Reactions: Allergies No Known Allergies Allergy (Verified 08/14/19 16:11) Home Medications: Home Medications Medication Instructions Recorded Confirmed Last Taken Type Alogliptin Benzoate [Alogliptin] 1 tab PO DAILY 10/02/20 10/25/20 Unknown History Sevelamer Carbonate [Renvela] 800 mg PO TIDWM 10/02/20 10/25/20 Unknown History buprenorphine hcl [Subutex] 2 mg SL QDAY PRN 10/02/20 10/25/20 Unknown History AtorvaSTATin [Lipitor] 40 mg PO QHS #30 10/11/20 10/25/20 Unknown Rx Docusate Sodium [Colace CAP] 100 mg PO BID PRN #60 cap 10/11/20 10/25/20 Unknown Rx Doxazosin [Cardura] 4 mg PO QDAY #30 10/11/20 10/25/20 Unknown Rx Febuxostat 40 mg PO QDAY #30 10/11/20 10/25/20 Unknown Rx Ketotifen Fumarate 1 drop OU QDAY #1 bottle 10/11/20 10/25/20 Unknown Rx Lansoprazole Solutab [Prevacid 30 mg FEEDTUBE BID #60 tab.rapdis 10/11/20 10/25/20 Unknown Rx Solutab] Megestrol Acetate 40 mg PO QDAY #30 10/11/20 10/25/20 Unknown Rx Metoprolol [Lopressor TAB] 12.5 mg PO BID #60 tablet 10/11/20 10/25/20 Unknown Rx calcitrioL [Rocaltrol] 1 mcg PO QDAY #30 cap 10/11/20 10/25/20 Unknown Rx timoloL maleate [Timolol Maleate 1 drop OP BID #1 bottle 10/11/20 10/25/20 Unknown Rx 0.25%] Active Medications: Generic Name Dose Route Start Last Admin Trade Name Freq PRN Reason Stop Dose Admin Acetaminophen 650 mg 01/12/21 19:30 Acetaminophen 325 Mg Tab PO Q4H PRN Pain MILD(1-3)/Fever >100.5/ABEL Albuterol 2.5 mg 01/12/21 19:30 Albuterol 2.5 Mg/3 Ml Nebu IH Q4HRT PRN Shortness Of Breath Lipase/Protease/Amylase 1 each 01/13/21 10:11 Lipase 10,500/Protease 25,000/Amylase 43,750 (Units) Dr Silveira FEEDTUBE PRN PRN For Clogged Feeding Tube Atorvastatin Calcium 40 mg 01/12/21 22:00 01/17/21 21:37 Atorvastatin 40 Mg Tab PO 40 mg QHS NOLAN Administration Calcitriol 1 mcg 01/13/21 10:00 01/18/21 09:27 Calcitriol 0.5 Mcg Cap PO 1 mcg QDAY NOLAN Administration Docusate Sodium 100 mg 01/17/21 09:00 Docusate Sodium 100 Mg/10 Ml Oral Liqd PO BID PRN Constipation Doxazosin Mesylate 2 mg 01/18/21 10:00 01/18/21 09:18 Doxazosin 1 Mg Tab PO 2 mg QDAY NOLAN Administration Fentanyl 25 mcg 01/17/21 18:10 Fentanyl 100 Mcg/2 Ml Inj IV Q2HR PRN Pain , Severe (7-10) Hydrophilic Ointment 1 applic 01/15/21 17:14 Lip Therapy Vaseline TP Q2HR PRN Dry Lips Valproate Sodium 500 mg/ 105 mls @ 100 mls/hr 01/14/21 22:00 01/18/21 06:53 Sodium Chloride IV 100 mls/hr Q8H NOLAN Administration Sodium Chloride 100 mls @ 999 mls/hr 01/15/21 08:00 Nacl 0.9% IV DIONNA PRN Hypotension Fosphenytoin Sodium 100 mg.pe/ 102 mls @ 200 mls/hr 01/15/21 20:00 01/18/21 09:17 Sodium Chloride IV 200 mls/hr TID NOLAN Administration Norepinephrine 4 mg in 250 mls @ 7.5 mls/hr 01/15/21 19:00 01/16/21 09:15 Levophed Drip 4 Mg/Ns 250 Ml IV 0 mcg/min TITR NOLAN 0 mls/hr Titration Protocol 2 MCG/MIN Levetiracetam 250 mg/ Dextrose 52.5 mls @ 200 mls/hr 01/15/21 22:00 01/17/21 21:37 IV 200 mls/hr Q12HR NOLAN Administration Insulin Human Lispro 0 unit 01/16/21 00:00 01/18/21 07:22 Insulin Lispro 100 Unit/Ml SUB-Q Not Given Q6HR NOLAN Protocol Lansoprazole 30 mg 01/12/21 22:00 01/18/21 09:18 Lansoprazole 30 Mg Solutab FEEDTUBE 30 mg BID NOLAN Administration Linagliptin 5 mg 01/13/21 11:00 01/18/21 09:18 Linagliptin 5 Mg Tab PO 5 mg QDDIAB NOLAN Administration Multi-Ingred Cream/Lotion/Oil/Oint 1 applic 01/15/21 17:14 Mineral Oil/Petrolatum, White Ophth Oint 3.5 Gm OU Q4HR PRN Dry Eye(s) Ondansetron HCl 4 mg 01/12/21 19:30 Ondansetron 4 Mg/2 Ml Inj IV Q8H PRN Nausea And Vomiting Potassium Phos/Sodium Phos 1 each 01/18/21 08:00 01/18/21 09:19 Phos-Nak Powder Packet PO 01/19/21 07:59 1 each Q8HR NOLAN Administration Simple Syrup 15 ml 01/13/21 10:11 01/18/21 06:54 Simple Syrup 15 Ml FEEDTUBE 15 ml PRN PRN Administration Hypoglycemia Simple Syrup 30 ml 01/13/21 10:11 Simple Syrup 15 Ml FEEDTUBE PRN PRN Hypoglycemia Sodium Bicarbonate 325 mg 01/13/21 10:11 Sodium Bicarbonate 325 Mg Tab FEEDTUBE PRN PRN For Clogged Feeding Tube Sodium Chloride 10 ml 01/12/21 22:00 01/18/21 09:29 Sodium Chloride 0.9% 10 Ml Flush Syringe IV 10 ml BID NOLAN Administration Sodium Chloride 10 ml 01/12/21 19:30 Sodium Chloride 0.9% 10 Ml Flush Syringe IV PRN PRN LINE FLUSH Timolol Maleate 1 drops 01/17/21 10:00 01/18/21 09:19 Timolol 0.5% Ophth Soln 5 Ml OU 1 drops QDAY NOLAN Administration
[2021-01-18 10:44] LABS: Red Cell Distribution Width 20.8 % (13.2-15.2)
--- NOTE | 2021-01-18 11:26 | Progress Note ---
<RODRÍGUEZ COLON - Last Filed: 01/18/21 11:42> Assessment and Plan Assessment and plan: 80-year-old male with ESRD on HD, HTN, CAD, cerebral arthrosclerosis, vascular dementia who is admitted for new onset seizures. On 01/15 patient was transferred to ICU and intubated for possible status epilepticus. Neuro: New onset seizure disorder; possibly be in status epilepticus. Neurology consulted, appreciate recommendations CT of the brain noted, no signs of acute infarct MRI showing subacute to chronic subdural hematoma. 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 -Celebrex, Keppra, Depacon -01/14 EEG is significantly abnormal, diffuse background slowing in 3-4 Hz, patient had a vertex waves and sleep spindles noted bilaterally and centrally, 2 events of facial twitching with associated generalized tonic/clonic activities, lasting for at least 15 seconds each followed by suppressions, findings suggestive of encephalopathic process and/or higher tendency of possible focal seizures with generalization, possibility of source of blood loss cannot be totally excluded -01/15 EEG shows burst suppression pattern, intermittent sharp electric activity is noted throughout the recording, pronounced in the right frontal region, findings consistent with generalized seizure activity -01/16 EEG shows findings of generalized burst suppression as well as recurrent triphasic waves sinuses Rocephin for the process, and her drug effect, reports after stage cannot be excluded, possibility of toxic metabolic and/or hepatic and/or renal insufficiency cannot be excluded -01/17 EEG shows significant improvement previous recording, no epileptiform discharges noted, no runs of sharp looking activity is appreciated, intermittent triphasic waves noted mostly bifrontally and improvement in the background activity to 4-6 Hz noted throughout the recording, concerning suggestive of mild encephalopathic process and/or postictal state of possibility of flexor metabolic etiology cannot be totally excluded -01/18 repeat EEG pending -Aspiration and seizures precautions Vascular dementia No behavioral disturbances Currently stable at this time Chronic subdural hematoma -Noted on MRI We will hold anticoagulation Cerebral atherosclerosis Hold antiplatelet therapy Cardio: History of hypertension secondary to renal disease Hydralazine as needed, hold metoprolol in setting of hypotension and resume as needed -S/p Levophed for hypotension Resp: Acute hypoxic respiratory failure -Intubated 01/15 for possible status epilepticus however patient was extubated on 01/17 and had to be reintubated on 01/17 for hypoxia -Wean mechanical ventilation as tolerated -VAP bundle -SPO2 monitoring per protocol -Serial ABGs and CXR FEN/GI: End-stage renal disease on HD Nephrology consulted Dialysis per renal team -Renally dose medication -Avoid nephrotoxic medications Hypokalemia -01/16 potassium 3.4, 01/17 K 3.5, 01/18 potassium 2.9 -Replete with Phos-Nak, KCL PO -Trend potassium Hypophosphatemia -01/16 phosphate 1.1, 01/17 phosphate 0.8, 01/17 phos 2.2, 01/18 Phos 1.6 -Repleat with PhosNak -Trend Phos levels Severe dysphagia; Failure to thrive Chronic PEG tube -On tube feedings, Accu-Cheks every 6, SSI : NAD -Anuric Heme: Anemia of chronic disease -Admit H/H 12. -Transfuse for hemoglobin less than 7 Thrombocytopenia -01/16 platelets 132, 08/21 platelets 116 -Trend CBC -Hold anticouagualtion in setting of chronic SDH Skin: NAD -Turning per protocol -Per RN, healed sacral ulcer CODE STATUS: Full DVT prophylaxis: SCDs to BLE while in bed Lines: PIV Disposition: ICU for now The high probability of a clinically significant, sudden or life threatening deterioration of the [neuro, resp] system(s) required my full and direct attention, intervention and personal management. The aggregate critical care t isai was [35] minutes. This time is in addition to time spent performing reported procedures but includes the following: [x] Data Review and interpretation [x] Patient assessment and monitoring of vital signs [x] Documentation [x] Medication orders and management History Interval history: This 80-year-old male who is a resident of a [facility] with ESRD on HD Thursday, , Thursday), hyperlipidemia, hypertension, vascular dementia, cerebral sclerosis presents to the emergency department after suspected cardiac arrest and initiation of ACLS at the dialysis center 01/12/2021 however upon EMS arrival patient was noted to be actively seizing and chest compressions were discontinued. Upon arrival to the emergency department mariola ent was found to have new onset seizure disorder, acidosis. Nephrology was consulted for ESRD. Patient was initially admitted to the telemetry floor under observation. 01/13/2021. Seizure precautions. Continue IV Keppra and await neurology evaluation. Check EEG and MRI. CT scan negative. Continue hemodialysis per nephrology recommendations. 01/14/2021. Patient is somnolent and lethargic. However, no new seizure activity noted. CT brain is remarkable for white matter changes. Continue seizure precautions. Follow-up EEG and MRI brain. Neurology decrease Keppra to 250 mg twice daily. Ativan as needed for seizure. Continue hemodialysis per nephrology recommendations. 01/15/2021: There is no overt seizure activity, however patient continues to be nonverbal. Patient seen after dialysis. Patient is not responsive to any verbal cues. Patient is moaning. 01/16: Patient had EEG today and was noted to be having seizure activity on 2 mg of Versed and this was uptitrated to 3 mg Versed. Neurology has been informed. Hypokalemia and hypophosphatemia addressed. Likely HD tomorrow. 01/17: Repeat EEG completed today. Severe hypophosphatemia noted today, repleted with IV phos. HD scheduled today. 01/18: Repeat EEG today per neuro, HD per nephro. Hypokalemia today to 2.9 and hy pophosphatemia to 1.6, patient received 40 M EQ of KCl, PhosNak for 1 day. Will obtain pm labs. Pateint is less responsive today but Neuro does not think he had another seizure. Thrombocytopenia, will trend CBC. Patient became hypoxic towards the end of dialysis and failed BiPAP therapy and had to be intubated for hypoxia. Hospitalist Physical - Constitutional Vitals: Temp Pulse Resp BP Pulse Ox 97.4 F L 99 H 20 119/69 100 01/18/21 07:00 01/18/21 09:18 01/18/21 08:20 01/18/21 09:18 01/18/21 08:20 General appearance: Present: no acute distress, other (on MV) - EENT Eyes: Present: PERRL - Neck Neck: Absent: masses or JVD, cervical LAD - Respiratory Respiratory effort: normal Respiratory: bilateral: rhonchi - Cardiovascular Rhythm: regular Heart Sounds: Present: S1 & S2. Absent: systolic murmur, diastolic murmur - Extremities Extremities: pulses intact, pulses symmetrical, normal temperature, normal color Extremity abnormal: edema Peripheral Pulses: within normal limits - Abdominal General gastrointestinal: soft, non-tender, non-distended, normal bowel sounds - Integumentary Integumentary: Present: warm, dry - Neurologic Neurologic: other (less interactive today ) - Allied Health Allied health notes reviewed: nursing, RT, social work Results - Labs CBC & Chem 7: 01/18/21 10:20 01/18/21 04:16 Labs: Laboratory Last Values WBC 14.1 K/mm3 (4.5-11.0) H 01/18/21 10:20 RBC 4.15 M/mm3 (3.65-5.03) 01/18/21 10:20 Hgb 11.2 gm/dl (11.8-15.2) L 01/18/21 10:20 Hct 34.5 % (35.5-45.6) L 01/18/21 10:20 MCV 83 fl (84-94) L 01/18/21 10:20 MCH 27 pg (28-32) L 01/18/21 10:20 MCHC 33 % (32-34) 01/18/21 10:20 RDW 20.8 % (13.2-15.2) H 01/18/21 10:20 Plt Count 116 K/mm3 (140-440) L 01/18/21 10:20 Lymph % (Auto) 6.3 % (13.4-35.0) L 01/15/21 05:22 Millard % (Auto) 5.4 % (0.0-7.3) 01/15/21 05:22 Eos % (Auto) 0.0 % (0.0-4.3) 01/15/21 05:22 Baso % (Auto) 0.1 % (0.0-1.8) 01/15/21 05:22 Lymph # (Auto) 0.7 K/mm3 (1.2-5.4) L 01/15/21 05:22 Millard # (Auto) 0.6 K/mm3 (0.0-0.8) 01/15/21 05:22 Eos # (Auto) 0.0 K/mm3 (0.0-0.4) 01/15/21 05:22 Baso # (Auto) 0.0 K/mm3 (0.0-0.1) 01/15/21 05:22 Seg Neutrophils % 88.2 % (40.0-70.0) H 01/15/21 05:22 Seg Neutrophils # 9.8 K/mm3 (1.8-7.7) H 01/15/21 05:22 ABG pH 7.433 (7.320-7.450) 01/18/21 03:28 POC ABG pCO2 34.7 mmHg (32.0-48.0) 01/18/21 03:28 POC ABG pO2 190.2 mmHg (83-108) H 01/18/21 03:28 POC ABG HCO3 22.7 01/18/21 03:28 ABG O2 Saturation 99.8 (0-100) 01/18/21 03:28 POC ABG Base Excess -1.1 01/18/21 03:28 ABG Hemoglobin 11.9 (12.0-17.5) L 01/18/21 03:28 ABG Oxyhemoglobin 98.5 (94-98) H 01/18/21 03:28 ABG Methemoglobin 0.3 (0.0-1.5) 01/18/21 03:28 ABG Sodium 131.0 mmol/L (136.0-145.0) L 01/18/21 03:28 ABG Potassium 2.8 mmol/L (3.40-4.50) L 01/18/21 03:28 ABG Chloride 102.0 mmol/L (98-107) 01/18/21 03:28 ABG Glucose 95 mg/dL (65-95) 01/18/21 03:28 Carboxyhemoglobin 1.0 (0.5-1.5) 01/18/21 03:28 FiO2 % 50.0 01/18/21 03:28 Sodium 134 mmol/L (137-145) L 01/18/21 04:16 Potassium 2.9 mmol/L (3.6-5.0) L* 01/18/21 04:16 Chloride 99.5 mmol/L (98-107) 01/18/21 04:16 Carbon Dioxide 21 mmol/L (22-30) L 01/18/21 04:16 Anion Gap 16 mmol/L 01/18/21 04:16 BUN 60 mg/dL (9-20) H 01/18/21 04:16 Creatinine 3.9 mg/dL (0.8-1.3) H 01/18/21 04:16 Estimated GFR 18 ml/min 01/18/21 04:16 BUN/Creatinine Ratio 15 % 01/18/21 04:16 Glucose 97 mg/dL (75-100) 01/18/21 04:16 POC Glucose 84 mg/dL (70-105) 01/18/21 07:42 Calcium 8.7 mg/dL (8.4-10.2) 01/18/21 04:16 Phosphorus 1.60 mg/dL (2.5-4.5) L D 01/18/21 04:16 Magnesium 2.00 mg/dL (1.7-2.3) 01/18/21 04:16 Total Bilirubin 0.30 mg/dL (0.1-1.2) 01/13/21 05:19 Direct Bilirubin < 0.2 mg/dL (0-0.2) 01/12/21 14:36 Indirect Bilirubin 0.1 mg/dL 01/12/21 14:36 AST 27 units/L (5-40) 01/13/21 05:19 ALT 10 units/L (7-56) 01/13/21 05:19 Alkaline Phosphatase 72 units/L (35-129) 01/13/21 05:19 Ammonia 22.0 umol/L (25-60) L 01/17/21 11:14 Total Protein 5.8 g/dL (6.3-8.2) L 01/13/21 05:19 Albumin 3.3 g/dL (3.9-5) L 01/13/21 05:19 Albumin/Globulin Ratio 1.3 % 01/13/21 05:19 Arterial Blood Glucose 95 mg/dL (65-95) 01/18/21 03:28 Arterial Blood Ionized Calcium 4.6 mg/dL (4.6-5.3) 01/18/21 03:28 Nasal Screen MRSA (PCR) Positive (Negative) 01/13/21 Unknown Phenytoin 6.5 ug/mL (10.0-20.0) L 01/16/21 09:15 Valproic Acid 45.9 ug/mL (50-100) L 01/15/21 08:56 Coronavirus (PCR) Negative (Negative) 01/15/21 08:00 Hepatitis A IgM Ab Non-reactive (NonReactive) 01/15/21 09:15 Hep Bs Antigen Non-reactive (Negative) 01/15/21 09:15 Hep B Core IgM Ab Non-reactive (NonReactive) 01/15/21 09:15 Hepatitis C Antibody Non-reactive (NonReactive) 01/15/21 09:15 Brewer/IV: Voiding Method Incontinent Active Medications - Current Medications Current Medications: Generic Name Dose Route Start Last Admin Trade Name Freq PRN Reason Stop Dose Admin Acetaminophen 650 mg 01/12/21 19:30 Acetaminophen 325 Mg Tab PO Q4H PRN Pain MILD(1-3)/Fever >100.5/ABEL Albuterol 2.5 mg 01/12/21 19:30 Albuterol 2.5 Mg/3 Ml Nebu IH Q4HRT PRN Shortness Of Breath Lipase/Protease/Amylase 1 each 01/13/21 10:11 Lipase 10,500/Protease 25,000/Amylase 43,750 (Units) Dr Raoul FEEDTUBE PRN PRN For Clogged Feeding Tube Atorvastatin Calcium 40 mg 01/12/21 22:00 01/17/21 21:37 Atorvastatin 40 Mg Tab PO 40 mg QHS NOLAN Administration Calcitriol 1 mcg 01/13/21 10:00 01/18/21 09:27 Calcitriol 0.5 Mcg Cap PO 1 mcg QDAY NOLAN Administration Docusate Sodium 100 mg 01/17/21 09:00 Docusate Sodium 100 Mg/10 Ml Oral Liqd PO BID PRN Constipation Doxazosin Mesylate 2 mg 01/18/21 10:00 01/18/21 09:18 Doxazosin 1 Mg Tab PO 2 mg QDAY NOLAN Administration Fentanyl 25 mcg 01/17/21 18:10 Fentanyl 100 Mcg/2 Ml Inj IV Q2HR PRN Pain , Severe (7-10) Hydrophilic Ointment 1 applic 01/15/21 17:14 Lip Therapy Vaseline TP Q2HR PRN Dry Lips Valproate Sodium 500 mg/ 105 mls @ 100 mls/hr 01/14/21 22:00 01/18/21 06:53 Sodium Chloride IV 100 mls/hr Q8H NOLAN Administration Sodium Chloride 100 mls @ 999 mls/hr 01/15/21 08:00 Nacl 0.9% IV DIONNA PRN Hypotension Fosphenytoin Sodium 100 mg.pe/ 102 mls @ 200 mls/hr 01/15/21 20:00 01/18/21 09:17 Sodium Chloride IV 200 mls/hr TID NOLAN Administration Norepinephrine 4 mg in 250 mls @ 7.5 mls/hr 01/15/21 19:00 01/16/21 09:15 Levophed Drip 4 Mg/Ns 250 Ml IV 0 mcg/min TITR NOLAN 0 mls/hr Titration Protocol 2 MCG/MIN Levetiracetam 250 mg/ Dextrose 52.5 mls @ 200 mls/hr 01/15/21 22:00 01/17/21 21:37 IV 200 mls/hr Q12HR NOLAN Administration Insulin Human Lispro 0 unit 01/16/21 00:00 01/18/21 07:22 Insulin Lispro 100 Unit/Ml SUB-Q Not Given Q6HR NOLAN Protocol Lansoprazole 30 mg 01/12/21 22:00 01/18/21 09:18 Lansoprazole 30 Mg Solutab FEEDTUBE 30 mg BID NOLAN Administration Linagliptin 5 mg 01/13/21 11:00 01/18/21 09:18 Linagliptin 5 Mg Tab PO 5 mg QDDIAB NOLAN Administration Multi-Ingred Cream/Lotion/Oil/Oint 1 applic 01/15/21 17:14 Mineral Oil/Petrolatum, White Ophth Oint 3.5 Gm OU Q4HR PRN Dry Eye(s) Ondansetron HCl 4 mg 01/12/21 19:30 Ondansetron 4 Mg/2 Ml Inj IV Q8H PRN Nausea And Vomiting Potassium Phos/Sodium Phos 2 each 01/18/21 10:44 Phos-Nak Powder Packet PO 01/19/21 07:59 Q8HR NOLAN Simple Syrup 15 ml 01/13/21 10:11 01/18/21 06:54 Simple Syrup 15 Ml FEEDTUBE 15 ml PRN PRN Administration Hypoglycemia Simple Syrup 30 ml 01/13/21 10:11 Simple Syrup 15 Ml FEEDTUBE PRN PRN Hypoglycemia Sodium Bicarbonate 325 mg 01/13/21 10:11 Sodium Bicarbonate 325 Mg Tab FEEDTUBE PRN PRN For Clogged Feeding Tube Sodium Chloride 10 ml 01/12/21 22:00 01/18/21 09:29 Sodium Chloride 0.9% 10 Ml Flush Syringe IV 10 ml BID NOLAN Administration Sodium Chloride 10 ml 01/12/21 19:30 Sodium Chloride 0.9% 10 Ml Flush Syringe IV PRN PRN LINE FLUSH Timolol Maleate 1 drops 01/17/21 10:00 01/18/21 09:19 Timolol 0.5% Ophth Soln 5 Ml OU 1 drops QDAY NOLAN Administration Nutrition/Malnutrition Assess - Dietary Evaluation Nutrition/Malnutrition Findings: Nutrition Notes Start: 01/13/21 10:03 Freq: Status: Active Protocol: Document 01/17/21 10:38 (Rec: 01/17/21 10:40 [id number]) Nutrition Notes Initial or Follow up Reassessment Current Diagnosis CKD (stage V CKD),Diabetes, Hypertension,Hyperlipidemia Other Pertinent Diagnosis on HD, dementia, new on set seizure disorder Current Diet Nepro 1.8 at 38 ml/hr Labs/Tests Na 136 K 3.5 Phos 0.8 Pertinent Medications sodium phosphate Height 5 ft 9 in Weight 56.1 kg Slater Body Weight (kg) 72.72 BMI 18.2 Weight Status Underweight Subjective/Other Information Observed TF running at goal rate and pt tolerating. Percent of energy/protein needs met: 100%/100% Burn Absent Trauma Absent Difficulty In Swallowing,Chewing Current % PO Negligible Minimum of two criteria No #2 Nutrition Diagnosis Increased nutrient needs ( specify in comment below) Diagnosis Progress(for reassessment Continues documentation) #1 Nutrition Diagnosis Inadequate oral intake Diagnosis Progress(for reassessment Continues documentation) Is patient on ventilator? No Is Patient Ambulatory and/or Out of Bed No REE-([facility] [place]confined [place] bed) 1508.844 Calculation Used for Recommendations [facility] Additional Notes Protein: (>1.25g/kg) greater than 71g Fluid: 1ml/kcal or per MD Nutrition Intervention Nutrition Support: Nepro 1.8 at 38 ml/hr Flush 150 ml q4h Kcal 1,642 Protein (gm) 74 Fluid (mL) 611 Goal #1 Meet at least 75% of protein and energy needs via TF Goal #2 Wound healing Goal #3 Wt gain/maintenance Anticipated Discharge Needs: Nepro 1.8 at 38 ml/hr Flush 150 ml q4h Follow-Up By: 01/24/21 Additional Comments FU for stable TF <DUY HOYT - Last Filed: 01/19/21 11:00> Assessment and Plan Assessment and plan: Agree with assessment plan as outlined as above, patient was extubated however had to be reintubated due to failed BiPAP. Patient remains stable at this time. There is a possibility that patient continues to have midazolam in his system causing him to be very lethargic. We will continue ICU care at this time. Family has been updated of reintubation. Hospitalist Physical - Constitutional Vitals: Temp Pulse Resp BP Pulse Ox 98.8 F 114 H 25 H 112/65 100 01/19/21 07:35 01/19/21 09:00 01/19/21 08:47 01/19/21 09:00 01/19/21 08:47 Results - Labs CBC & Chem 7: 01/18/21 10:20 01/19/21 04:38 Labs: Laboratory Last Values WBC 14.1 K/mm3 (4.5-11.0) H 01/18/21 10:20 RBC 4.15 M/mm3 (3.65-5.03) 01/18/21 10:20 Hgb 11.2 gm/dl (11.8-15.2) L 01/18/21 10:20 Hct 34.5 % (35.5-45.6) L 01/18/21 10:20 MCV 83 fl (84-94) L 01/18/21 10:20 MCH 27 pg (28-32) L 01/18/21 10:20 MCHC 33 % (32-34) 01/18/21 10:20 RDW 20.8 % (13.2-15.2) H 01/18/21 10:20 Plt Count 116 K/mm3 (140-440) L 01/18/21 10:20 Lymph % (Auto) 6.3 % (13.4-35.0) L 01/15/21 05:22 Millard % (Auto) 5.4 % (0.0-7.3) 01/15/21 05:22 Eos % (Auto) 0.0 % (0.0-4.3) 01/15/21 05:22 Baso % (Auto) 0.1 % (0.0-1.8) 01/15/21 05:22 Lymph # (Auto) 0.7 K/mm3 (1.2-5.4) L 01/15/21 05:22 Millard # (Auto) 0.6 K/mm3 (0.0-0.8) 01/15/21 05:22 Eos # (Auto) 0.0 K/mm3 (0.0-0.4) 01/15/21 05:22 Baso # (Auto) 0.0 K/mm3 (0.0-0.1) 01/15/21 05:22 Seg Neutrophils % 88.2 % (40.0-70.0) H 01/15/21 05:22 Seg Neutrophils # 9.8 K/mm3 (1.8-7.7) H 01/15/21 05:22 ABG pH 7.536 (7.320-7.450) H 01/19/21 03:43 POC ABG pCO2 27.0 mmHg (32.0-48.0) L 01/19/21 03:43 POC ABG pO2 165.8 mmHg (83-108) H 01/19/21 03:43 POC ABG HCO3 22.4 01/19/21 03:43 ABG O2 Saturation 99.6 (0-100) 01/19/21 03:43 POC ABG Base Excess 0.6 01/19/21 03:43 ABG Hemoglobin 10.7 (12.0-17.5) L 01/19/21 03:43 ABG Oxyhemoglobin 98.4 (94-98) H 01/19/21 03:43 ABG Methemoglobin 0.3 (0.0-1.5) 01/19/21 03:43 ABG Sodium 131.3 mmol/L (136.0-145.0) L 01/19/21 03:43 ABG Potassium 3.6 mmol/L (3.40-4.50) 01/19/21 03:43 ABG Chloride 104.0 mmol/L (98-107) 01/19/21 03:43 ABG Glucose 152 mg/dL (65-95) H 01/19/21 03:43 Carboxyhemoglobin 0.9 (0.5-1.5) 01/19/21 03:43 FiO2 % 65.0 01/19/21 03:43 Sodium 137 mmol/L (137-145) 01/19/21 04:38 Potassium 4.2 mmol/L (3.6-5.0) D 01/19/21 04:38 Chloride 98.6 mmol/L (98-107) 01/19/21 04:38 Carbon Dioxide 23 mmol/L (22-30) 01/19/21 04:38 Anion Gap 20 mmol/L 01/19/21 04:38 BUN 55 mg/dL (9-20) H 01/19/21 04:38 Creatinine 3.8 mg/dL (0.8-1.3) H 01/19/21 04:38 Estimated GFR 19 ml/min 01/19/21 04:38 BUN/Creatinine Ratio 14 % 01/19/21 04:38 Glucose 143 mg/dL (75-100) H 01/19/21 04:38 POC Glucose 135 mg/dL (70-105) H 01/19/21 05:12 Calcium 8.8 mg/dL (8.4-10.2) 01/19/21 04:38 Phosphorus 1.10 mg/dL (2.5-4.5) L 01/19/21 04:38 Magnesium 1.90 mg/dL (1.7-2.3) 01/19/21 04:38 Total Bilirubin 0.30 mg/dL (0.1-1.2) 01/13/21 05:19 Direct Bilirubin < 0.2 mg/dL (0-0.2) 01/12/21 14:36 Indirect Bilirubin 0.1 mg/dL 01/12/21 14:36 AST 27 units/L (5-40) 01/13/21 05:19 ALT 10 units/L (7-56) 01/13/21 05:19 Alkaline Phosphatase 72 units/L (35-129) 01/13/21 05:19 Ammonia 22.0 umol/L (25-60) L 01/17/21 11:14 Total Protein 5.8 g/dL (6.3-8.2) L 01/13/21 05:19 Albumin 3.3 g/dL (3.9-5) L 01/13/21 05:19 Albumin/Globulin Ratio 1.3 % 01/13/21 05:19 Arterial Blood Glucose 152 mg/dL (65-95) H 01/19/21 03:43 Arterial Blood Ionized Calcium 4.6 mg/dL (4.6-5.3) 01/19/21 03:43 Nasal Screen MRSA (PCR) Positive (Negative) 01/13/21 Unknown Urine Opiates Screen Negative 01/18/21 14:25 Urine Methadone Screen Negative 01/18/21 14:25 Ur Barbiturates Screen Negative 01/18/21 14:25 Phenytoin 6.5 ug/mL (10.0-20.0) L 01/16/21 09:15 Valproic Acid 45.9 ug/mL (50-100) L 01/15/21 08:56 Ur Phencyclidine Scrn Negative 01/18/21 14:25 Ur Amphetamines Screen Negative 01/18/21 14:25 U Benzodiazepines Scrn Presumptive positive 01/18/21 14:25 Urine Cocaine Screen Negative 01/18/21 14:25 U Marijuana (THC) Screen Negative 01/18/21 14:25 Drugs of Abuse Note Disclamer 01/18/21 14:25 Coronavirus (PCR) Negative (Negative) 01/15/21 08:00 Hepatitis A IgM Ab Non-reactive (NonReactive) 01/15/21 09:15 Hep Bs Antigen Non-reactive (Negative) 01/15/21 09:15 Hep B Core IgM Ab Non-reactive (NonReactive) 01/15/21 09:15 Hepatitis C Antibody Non-reactive (NonReactive) 01/15/21 09:15 Brewer/IV: Voiding Method Incontinent Active Medications - Current Medications Current Medications: Generic Name Dose Route Start Last Admin Trade Name Freq PRN Reason Stop Dose Admin Acetaminophen 650 mg 01/12/21 19:30 Acetaminophen 325 Mg Tab PO Q4H PRN Pain MILD(1-3)/Fever >100.5/ABEL Albuterol 2.5 mg 01/12/21 19:30 Albuterol 2.5 Mg/3 Ml Nebu IH Q4HRT PRN Shortness Of Breath Lipase/Protease/Amylase 1 each 01/13/21 10:11 Lipase 10,500/Protease 25,000/Amylase 43,750 (Units) Dr Silveira FEEDTUBE PRN PRN For Clogged Feeding Tube Atorvastatin Calcium 40 mg 01/12/21 22:00 01/18/21 22:51 Atorvastatin 40 Mg Tab PO 40 mg QHS NOLAN Administration Calcitriol 1 mcg 01/13/21 10:00 01/19/21 09:00 Calcitriol 0.5 Mcg Cap PO 1 mcg QDAY NOLAN Administration Docusate Sodium 100 mg 01/17/21 09:00 Docusate Sodium 100 Mg/10 Ml Oral Liqd PO BID PRN Constipation Doxazosin Mesylate 2 mg 01/18/21 10:00 01/19/21 09:00 Doxazosin 1 Mg Tab PO 2 mg QDAY NOLAN Administration Fentanyl 25 mcg 01/17/21 18:10 Fentanyl 100 Mcg/2 Ml Inj IV Q2HR PRN Pain , Severe (7-10) Hydrophilic Ointment 1 applic 01/15/21 17:14 Lip Therapy Vaseline TP Q2HR PRN Dry Lips Valproate Sodium 500 mg/ 105 mls @ 100 mls/hr 01/14/21 22:00 01/19/21 06:31 Sodium Chloride IV 100 mls/hr Q8H NOLAN Administration Sodium Chloride 100 mls @ 999 mls/hr 01/15/21 08:00 Nacl 0.9% IV DIONNA PRN Hypotension Fosphenytoin Sodium 100 mg.pe/ 102 mls @ 200 mls/hr 01/15/21 20:00 01/19/21 09:05 Sodium Chloride IV 200 mls/hr TID NOLAN Administration Norepinephrine 4 mg in 250 mls @ 7.5 mls/hr 01/15/21 19:00 01/16/21 09:15 Levophed Drip 4 Mg/Ns 250 Ml IV 0 mcg/min TITR NOLAN 0 mls/hr Titration Protocol 2 MCG/MIN Levetiracetam 250 mg/ Dextrose 52.5 mls @ 200 mls/hr 01/15/21 22:00 01/19/21 09:03 IV 200 mls/hr Q12HR NOLAN Administration Insulin Human Lispro 0 unit 01/16/21 00:00 01/19/21 06:31 Insulin Lispro 100 Unit/Ml SUB-Q Not Given Q6HR NOLAN Protocol Lansoprazole 30 mg 01/12/21 22:00 01/19/21 09:00 Lansoprazole 30 Mg Solutab FEEDTUBE 30 mg BID NOLAN Administration Linagliptin 5 mg 01/13/21 11:00 01/19/21 08:45 Linagliptin 5 Mg Tab PO 5 mg QDDIAB NOLAN Administration Multi-Ingred Cream/Lotion/Oil/Oint 1 applic 01/15/21 17:14 Mineral Oil/Petrolatum, White Ophth Oint 3.5 Gm OU Q4HR PRN Dry Eye(s) Ondansetron HCl 4 mg 01/12/21 19:30 Ondansetron 4 Mg/2 Ml Inj IV Q8H PRN Nausea And Vomiting Potassium Phos/Sodium Phos 3 each 01/19/21 10:02 Phos-Nak Powder Packet PO 01/19/21 13:59 Q8HR NOLAN Simple Syrup 15 ml 01/13/21 10:11 01/18/21 06:54 Simple Syrup 15 Ml FEEDTUBE 15 ml PRN PRN Administration Hypoglycemia Simple Syrup 30 ml 01/13/21 10:11 Simple Syrup 15 Ml FEEDTUBE PRN PRN Hypoglycemia Sodium Bicarbonate 325 mg 01/13/21 10:11 Sodium Bicarbonate 325 Mg Tab FEEDTUBE PRN PRN For Clogged Feeding Tube Sodium Chloride 10 ml 01/12/21 22:00 01/19/21 09:01 Sodium Chloride 0.9% 10 Ml Flush Syringe IV 10 ml BID NOLAN Administration Sodium Chloride 10 ml 01/12/21 19:30 Sodium Chloride 0.9% 10 Ml Flush Syringe IV PRN PRN LINE FLUSH Timolol Maleate 1 drops 01/17/21 10:00 01/19/21 09:00 Timolol 0.5% Ophth Soln 5 Ml OU 1 drops QDAY NOLAN Administration Nutrition/Malnutrition Assess - Dietary Evaluation Nutrition/Malnutrition Findings: Nutrition Notes Start: 01/13/21 10:03 Freq: Status: Active Protocol: Document 01/17/21 10:38 (Rec: 01/17/21 10:40 [id number]) Nutrition Notes Initial or Follow up Reassessment Current Diagnosis CKD (stage V CKD),Diabetes, Hypertension,Hyperlipidemia Other Pertinent Diagnosis on HD, dementia, new on set seizure disorder Current Diet Nepro 1.8 at 38 ml/hr Labs/Tests Na 136 K 3.5 Phos 0.8 Pertinent Medications sodium phosphate Height 5 ft 9 in Weight 56.1 kg Slater Body Weight (kg) 72.72 BMI 18.2 Weight Status Underweight Subjective/Other Information Observed TF running at goal rate and pt tolerating. Percent of energy/protein needs met: 100%/100% Burn Absent Trauma Absent Difficulty In Swallowing,Chewing Current % PO Negligible Minimum of two criteria No #2 Nutrition Diagnosis Increased nutrient needs ( specify in comment below) Diagnosis Progress(for reassessment Continues documentation) #1 Nutrition Diagnosis Inadequate oral intake Diagnosis Progress(for reassessment Continues documentation) Is patient on ventilator? No Is Patient Ambulatory and/or Out of Bed No REE-([facility]-confined to bed) 1508.844 Calculation Used for Recommendations [facility] Additional Notes Protein: (>1.25g/kg) greater than 71g Fluid: 1ml/kcal or per MD Nutrition Intervention Nutrition Support: Nepro 1.8 at 38 ml/hr Flush 150 ml q4h Kcal 1,642 Protein (gm) 74 Fluid (mL) 611 Goal #1 Meet at least 75% of protein and energy needs via TF Goal #2 Wound healing Goal #3 Wt gain/maintenance Anticipated Discharge Needs: Nepro 1.8 at 38 ml/hr Flush 150 ml q4h Follow-Up By: 01/24/21 Additional Comments FU for stable TF
--- NOTE | 2021-01-18 11:43 | Progress Note ---
Assessment and Plan 80 y/o with chronic seizure disorder, ESRD, HTN admitted with status epilepticus, requiring intubation for burst suppression. 01/18/21: EEG not officially read, but prelim is negative for seizures, just diffuse slowing. ABG is stable, not hypercapnic. Will semd UDS to see if benzos are still in system. spoke with renal who will do HD today and manage electrolytes. DId order mag level given low levels of potassium. Overall prognosis is very guarded to poor. If not more responsive tomorrow, may need to consider repeat imaging of head/brain. 01/17/21: Extubate. HD today per renal. If tolerates both, transfer back to floor on new anti-epileptic regimen 1. Continue Versed at 3mg IV per Hour for the next 24 hours. 2. Repeat EEG tomorrow off Versed. 3. Will attempt to get this before HD tomorrow. 4. HD per renal, tomorrow as patient got HD yesterday CCT 31 minutes. Subjective Date of service: 01/18/21 Principal diagnosis: witnessed seizure hx of ESRD ,hyponatremia Interval history: Patient unfortunately had to be re-intubated last night secondary to decrease in mental state and hypoxemia. This am, repeat EEG shows no status. Patient remains unresponsive, not on sedation. Not breathing over vent. Objective Vital Signs - 12hr 01/17/21 01/18/21 01/18/21 23:50 00:00 00:07 Temperature Pulse Rate 89 88 90 Pulse Rate [ 89 From Monitor] Respiratory 18 18 Rate Blood Pressure 124/71 128/71 128/71 O2 Sat by Pulse 100 99 100 Oximetry 01/18/21 01/18/21 01/18/21 00:10 00:20 00:30 Temperature Pulse Rate 88 91 H 87 Pulse Rate [ From Monitor] Respiratory 20 26 H 19 Rate Blood Pressure 128/71 135/73 139/73 O2 Sat by Pulse 100 100 100 Oximetry 01/18/21 01/18/21 01/18/21 00:40 00:50 01:00 Temperature Pulse Rate 86 87 86 Pulse Rate [ From Monitor] Respiratory 21 19 18 Rate Blood Pressure 139/73 143/71 123/66 O2 Sat by Pulse 100 100 100 Oximetry 01/18/21 01/18/21 01/18/21 01:10 01:20 01:30 Temperature Pulse Rate 90 91 H 94 H Pulse Rate [ From Monitor] Respiratory 20 23 25 H Rate Blood Pressure 123/66 133/53 138/56 O2 Sat by Pulse 100 100 100 Oximetry 01/18/21 01/18/21 01/18/21 01:40 01:50 02:00 Temperature Pulse Rate 72 93 H 95 H Pulse Rate [ From Monitor] Respiratory 18 20 20 Rate Blood Pressure 138/56 118/52 134/53 O2 Sat by Pulse 100 100 100 Oximetry 01/18/21 01/18/21 01/18/21 02:10 02:20 02:30 Temperature Pulse Rate 94 H 94 H 93 H Pulse Rate [ From Monitor] Respiratory 21 21 21 Rate Blood Pressure 138/56 131/52 130/52 O2 Sat by Pulse 100 100 100 Oximetry 01/18/21 01/18/21 01/18/21 02:40 02:50 03:00 Temperature Pulse Rate 94 H 95 H 96 H Pulse Rate [ From Monitor] Respiratory 21 21 19 Rate Blood Pressure 130/52 121/53 138/51 O2 Sat by Pulse 100 100 100 Oximetry 01/18/21 01/18/21 01/18/21 03:10 03:20 03:30 Temperature Pulse Rate 89 96 H 80 Pulse Rate [ From Monitor] Respiratory 22 21 22 Rate Blood Pressure 138/51 112/54 122/67 O2 Sat by Pulse 100 100 99 Oximetry 01/18/21 01/18/21 01/18/21 03:40 03:50 03:57 Temperature Pulse Rate 76 79 95 H Pulse Rate [ From Monitor] Respiratory 20 21 Rate Blood Pressure 112/54 110/60 110/60 O2 Sat by Pulse 100 100 100 Oximetry 01/18/21 01/18/21 01/18/21 04:00 04:10 04:20 Temperature Pulse Rate 76 93 H 99 H Pulse Rate [ 78 From Monitor] Respiratory 20 23 21 Rate Blood Pressure 112/51 112/51 123/55 O2 Sat by Pulse 100 100 100 Oximetry 01/18/21 01/18/21 01/18/21 04:30 04:40 04:50 Temperature Pulse Rate 94 H 96 H 98 H Pulse Rate [ From Monitor] Respiratory 20 19 19 Rate Blood Pressure 129/69 129/69 117/72 O2 Sat by Pulse 100 100 100 Oximetry 01/18/21 01/18/21 01/18/21 05:00 05:10 05:20 Temperature Pulse Rate 95 H 78 96 H Pulse Rate [ From Monitor] Respiratory 19 19 18 Rate Blood Pressure 133/47 129/69 115/52 O2 Sat by Pulse 100 100 100 Oximetry 01/18/21 01/18/21 01/18/21 05:30 05:40 05:50 Temperature Pulse Rate 96 H 78 94 H Pulse Rate [ From Monitor] Respiratory 16 18 19 Rate Blood Pressure 97/73 97/73 118/63 O2 Sat by Pulse 86 100 100 Oximetry 01/18/21 01/18/21 01/18/21 06:00 06:10 06:20 Temperature Pulse Rate 107 H 78 101 H Pulse Rate [ From Monitor] Respiratory 21 18 21 Rate Blood Pressure 110/49 110/49 114/53 O2 Sat by Pulse 96 99 100 Oximetry 01/18/21 01/18/21 01/18/21 06:30 06:40 06:50 Temperature Pulse Rate 95 H 78 95 H Pulse Rate [ From Monitor] Respiratory 19 21 22 Rate Blood Pressure 115/66 115/66 98/52 O2 Sat by Pulse 100 95 100 Oximetry 01/18/21 01/18/21 01/18/21 07:00 07:10 07:20 Temperature 97.4 F L Pulse Rate 79 102 H 93 H Pulse Rate [ From Monitor] Respiratory 25 H 30 H 22 Rate Blood Pressure 105/55 105/55 100/52 O2 Sat by Pulse 91 89 Oximetry 01/18/21 01/18/21 01/18/21 07:30 07:40 07:50 Temperature Pulse Rate 99 H 106 H 100 H Pulse Rate [ From Monitor] Respiratory 24 18 22 Rate Blood Pressure 109/57 109/57 108/64 O2 Sat by Pulse 94 99 97 Oximetry 01/18/21 01/18/21 01/18/21 08:00 08:10 08:20 Temperature Pulse Rate 102 H 100 H 98 H Pulse Rate [ From Monitor] Respiratory 21 19 20 Rate Blood Pressure 130/77 130/77 141/78 O2 Sat by Pulse 100 100 100 Oximetry 01/18/21 01/18/21 01/18/21 09:18 11:00 11:15 Temperature 97.5 F L Pulse Rate 99 H 98 H Pulse Rate [ From Monitor] Respiratory Rate Blood Pressure 119/69 124/65 O2 Sat by Pulse 100 Oximetry Constitutional: no acute distress, comatose (secondary to meds for seizure) ENT: other (orally intubated and sedated) Neck: supple Effort: normal Ascultation: Bilateral: clear Cardiovascular: regular rate and rhythm Gastrointestinal: normoactive bowel sounds Integumentary: normal Extremities: no edema, pulses normal CBC and BMP: 01/18/21 10:20 01/18/21 04:16 ABG, PT/INR, D-dimer: ABG ABG pH 7.433 (7.320-7.450) 01/18/21 03:28 POC ABG pCO2 34.7 mmHg (32.0-48.0) 01/18/21 03:28 POC ABG pO2 190.2 mmHg (83-108) H 01/18/21 03:28 POC ABG HCO3 22.7 01/18/21 03:28 ABG O2 Saturation 99.8 (0-100) 01/18/21 03:28 Abnormal lab findings: Abnormal Labs 01/12/21 01/12/21 01/12/21 14:12 14:36 14:36 WBC 11.2 H Hgb Hct MCV MCH 27 L RDW 21.0 H Plt Count Lymph % (Auto) Lymph # (Auto) Seg Neutrophils % 79.6 H Seg Neutrophils # 8.9 H ABG pH POC ABG pO2 ABG Hemoglobin ABG Oxyhemoglobin ABG Sodium ABG Potassium ABG Glucose Sodium 136 L Potassium Chloride 95.8 L Carbon Dioxide 19 L BUN Creatinine 2.0 H Glucose 163 H POC Glucose 166 H Calcium 8.2 L Phosphorus Ammonia Total Protein 5.4 L Albumin 3.4 L Arterial Blood Glucose Arterial Blood Ionized Calcium Phenytoin Valproic Acid 01/13/21 01/13/21 01/13/21 05:19 12:14 16:16 WBC Hgb Hct MCV MCH RDW Plt Count Lymph % (Auto) Lymph # (Auto) Seg Neutrophils % Seg Neutrophils # ABG pH POC ABG pO2 ABG Hemoglobin ABG Oxyhemoglobin ABG Sodium ABG Potassium ABG Glucose Sodium 134 L Potassium Chloride 95.5 L Carbon Dioxide BUN 23 H Creatinine 2.6 H Glucose 168 H POC Glucose 142 H 163 H Calcium Phosphorus Ammonia Total Protein 5.8 L Albumin 3.3 L Arterial Blood Glucose Arterial Blood Ionized Calcium Phenytoin Valproic Acid 01/13/21 01/13/21 01/14/21 20:22 23:57 06:31 WBC Hgb Hct MCV MCH RDW Plt Count Lymph % (Auto) Lymph # (Auto) Seg Neutrophils % Seg Neutrophils # ABG pH POC ABG pO2 ABG Hemoglobin ABG Oxyhemoglobin ABG Sodium ABG Potassium ABG Glucose Sodium Potassium Chloride Carbon Dioxide BUN Creatinine Glucose POC Glucose 209 H 189 H 236 H Calcium Phosphorus Ammonia Total Protein Albumin Arterial Blood Glucose Arterial Blood Ionized Calcium Phenytoin Valproic Acid 01/14/21 01/14/21 01/14/21 08:57 08:57 12:22 WBC 12.0 H Hgb 11.3 L Hct 34.5 L MCV MCH RDW 20.6 H Plt Count Lymph % (Auto) 6.4 L Lymph # (Auto) 0.8 L Seg Neutrophils % 87.4 H Seg Neutrophils # 10.5 H ABG pH POC ABG pO2 ABG Hemoglobin ABG Oxyhemoglobin ABG Sodium ABG Potassium ABG Glucose Sodium 131 L Potassium Chloride 93.7 L Carbon Dioxide BUN 37 H Creatinine 3.7 H Glucose 261 H POC Glucose 280 H Calcium Phosphorus Ammonia Total Protein Albumin Arterial Blood Glucose Arterial Blood Ionized Calcium Phenytoin Valproic Acid 01/14/21 01/14/21 01/15/21 16:15 22:28 04:43 WBC Hgb Hct MCV MCH RDW Plt Count Lymph % (Auto) Lymph # (Auto) Seg Neutrophils % Seg Neutrophils # ABG pH POC ABG pO2 ABG Hemoglobin ABG Oxyhemoglobin ABG Sodium ABG Potassium ABG Glucose Sodium Potassium Chloride Carbon Dioxide BUN Creatinine Glucose POC Glucose 289 H 252 H 243 H Calcium Phosphorus Ammonia Total Protein Albumin Arterial Blood Glucose Arterial Blood Ionized Calcium Phenytoin Valproic Acid 01/15/21 01/15/21 01/15/21 05:22 05:22 08:56 WBC 11.1 H Hgb 11.0 L Hct 33.3 L MCV 83 L MCH 27 L RDW 20.6 H Plt Count Lymph % (Auto) 6.3 L Lymph # (Auto) 0.7 L Seg Neutrophils % 88.2 H Seg Neutrophils # 9.8 H ABG pH POC ABG pO2 ABG Hemoglobin ABG Oxyhemoglobin ABG Sodium ABG Potassium ABG Glucose Sodium 130 L Potassium Chloride 92.0 L Carbon Dioxide BUN 49 H Creatinine 4.2 H Glucose 241 H POC Glucose Calcium Phosphorus Ammonia Total Protein Albumin Arterial Blood Glucose Arterial Blood Ionized Calcium Phenytoin Valproic Acid 45.9 L 07/01/15/21 01/15/21 16:42 18:14 23:10 WBC Hgb Hct MCV MCH RDW Plt Count Lymph % (Auto) Lymph # (Auto) Seg Neutrophils % Seg Neutrophils # ABG pH 7.463 H POC ABG pO2 377.4 H ABG Hemoglobin 11.6 L ABG Oxyhemoglobin 98.6 H ABG Sodium 130.1 L ABG Potassium ABG Glucose 254 H Sodium Potassium Chloride Carbon Dioxide BUN Creatinine Glucose POC Glucose 218 H 279 H Calcium Phosphorus Ammonia Total Protein Albumin Arterial Blood Glucose 254 H Arterial Blood Ionized Calcium 4.5 L Phenytoin Valproic Acid 01/16/21 01/16/21 01/16/21 03:10 05:11 05:17 WBC Hgb 10.4 L Hct 31.8 L MCV MCH 27 L RDW 20.3 H Plt Count 132 L Lymph % (Auto) Lymph # (Auto) Seg Neutrophils % Seg Neutrophils # ABG pH POC ABG pO2 174.4 H ABG Hemoglobin 10.3 L ABG Oxyhemoglobin 98.6 H ABG Sodium 129.9 L ABG Potassium 3.2 L ABG Glucose 202 H Sodium Potassium Chloride Carbon Dioxide BUN Creatinine Glucose POC Glucose 193 H Calcium Phosphorus Ammonia Total Protein Albumin Arterial Blood Glucose 202 H Arterial Blood Ionized Calcium Phenytoin Valproic Acid 01/16/21 01/16/21 01/16/21 05:17 09:15 11:33 WBC Hgb Hct MCV MCH RDW Plt Count Lymph % (Auto) Lymph # (Auto) Seg Neutrophils % Seg Neutrophils # ABG pH POC ABG pO2 ABG Hemoglobin ABG Oxyhemoglobin ABG Sodium ABG Potassium ABG Glucose Sodium Potassium 3.4 L Chloride Carbon Dioxide BUN 36 H Creatinine 3.2 H Glucose 216 H POC Glucose 174 H Calcium 8.3 L Phosphorus 1.10 L Ammonia Total Protein Albumin Arterial Blood Glucose Arterial Blood Ionized Calcium Phenytoin 6.5 L Valproic Acid 01/16/21 01/17/21 01/17/21 18:13 00:10 04:00 WBC Hgb Hct MCV MCH RDW Plt Count Lymph % (Auto) Lymph # (Auto) Seg Neutrophils % Seg Neutrophils # ABG pH POC ABG pO2 ABG Hemoglobin 10.1 L ABG Oxyhemoglobin ABG Sodium 130.1 L ABG Potassium 3.3 L ABG Glucose 153 H Sodium Potassium Chloride Carbon Dioxide BUN Creatinine Glucose POC Glucose 162 H 150 H Calcium Phosphorus Ammonia Total Protein Albumin Arterial Blood Glucose 153 H Arterial Blood Ionized Calcium Phenytoin Valproic Acid 01/17/21 01/17/21 01/17/21 05:30 05:48 11:14 WBC Hgb Hct MCV MCH RDW Plt Count Lymph % (Auto) Lymph # (Auto) Seg Neutrophils % Seg Neutrophils # ABG pH POC ABG pO2 ABG Hemoglobin ABG Oxyhemoglobin ABG Sodium ABG Potassium ABG Glucose Sodium 136 L Potassium 3.5 L Chloride Carbon Dioxide BUN 48 H Creatinine 3.5 H Glucose 165 H POC Glucose 149 H Calcium 8.0 L Phosphorus 0.80 L* D Ammonia 22.0 L Total Protein Albumin Arterial Blood Glucose Arterial Blood Ionized Calcium Phenytoin Valproic Acid 01/17/21 01/17/21 01/17/21 11:43 17:34 18:46 WBC Hgb Hct MCV MCH RDW Plt Count Lymph % (Auto) Lymph # (Auto) Seg Neutrophils % Seg Neutrophils # ABG pH POC ABG pO2 ABG Hemoglobin ABG Oxyhemoglobin ABG Sodium ABG Potassium ABG Glucose Sodium Potassium Chloride Carbon Dioxide BUN Creatinine Glucose POC Glucose 160 H 209 H Calcium Phosphorus 2.20 L D Ammonia Total Protein Albumin Arterial Blood Glucose Arterial Blood Ionized Calcium Phenytoin Valproic Acid 01/17/21 01/17/21 01/18/21 19:00 23:19 03:28 WBC Hgb Hct MCV MCH RDW Plt Count Lymph % (Auto) Lymph # (Auto) Seg Neutrophils % Seg Neutrophils # ABG pH POC ABG pO2 190.2 H ABG Hemoglobin 11.9 L ABG Oxyhemoglobin 98.5 H ABG Sodium 130.9 L 131.0 L ABG Potassium 3.0 L 2.8 L ABG Glucose 241 H Sodium Potassium Chloride Carbon Dioxide BUN Creatinine Glucose POC Glucose 222 H Calcium Phosphorus Ammonia Total Protein Albumin Arterial Blood Glucose 241 H Arterial Blood Ionized Calcium 4.5 L Phenytoin Valproic Acid 01/18/21 01/18/21 01/18/21 04:16 06:20 10:20 WBC 14.1 H Hgb 11.2 L Hct 34.5 L MCV 83 L MCH 27 L RDW 20.8 H Plt Count 116 L Lymph % (Auto) Lymph # (Auto) Seg Neutrophils % Seg Neutrophils # ABG pH POC ABG pO2 ABG Hemoglobin ABG Oxyhemoglobin ABG Sodium ABG Potassium ABG Glucose Sodium 134 L Potassium 2.9 L* Chloride Carbon Dioxide 21 L BUN 60 H Creatinine 3.9 H Glucose POC Glucose 69 L Calcium Phosphorus 1.60 L D Ammonia Total Protein Albumin Arterial Blood Glucose Arterial Blood Ionized Calcium Phenytoin Valproic Acid 01/18/21 11:29 WBC Hgb Hct MCV MCH RDW Plt Count Lymph % (Auto) Lymph # (Auto) Seg Neutrophils % Seg Neutrophils # ABG pH POC ABG pO2 ABG Hemoglobin ABG Oxyhemoglobin ABG Sodium ABG Potassium ABG Glucose Sodium Potassium Chloride Carbon Dioxide BUN Creatinine Glucose POC Glucose 128 H Calcium Phosphorus Ammonia Total Protein Albumin Arterial Blood Glucose Arterial Blood Ionized Calcium Phenytoin Valproic Acid
--- NOTE | 2021-01-18 14:06 | Progress Note ---
Assessment and Plan Assessment and Plan # New onset of possible witnessed seizure during dialysis yesterday -CT brain is remarkable for white matter changes -Keppra 500 mg IV -MRI brain is notedright lateral subdural hematoma , and associated blood in cervical junction -EEG repeat today valproic acid , plus fosphenytoin -Seizure precaution -Cut down keppra to 250 mg bid -Ativan prn for seizure -Seizure precaution -R/O underlying infection. -Repeat EEG today still show recurrent generalized spike and slow with predominant right frontal and with burst supression battern -Attempt to extubate yesterday end up in reintubation -EEG showed diffuse slowing with no seizure activity -will cut down fosphentoin -maintain keppra and valproic -correct underlying infection and electrolytes abn. # Right lateral subdural hematoma -noted on MRI -Remote -Small # Advanced dementia -Ct white matter changes -truncal rigidity -? base line # End stage renal disease 23/2.6 -- today 48/3.5 for dialysis today -Nephrology team consulted in ED, -dialysis as per renal team, -avoid nephrotoxic agents. # DVT prophylaxis -SCD to bilateral lower extremities while in bed, prophylactic anticoagulation # Advance care planning -Disease education conducted, care plan discussed, diagnoses discussed, prognosis discussed, patient is full code. Patient family knowledge understanding agree with care plan, +30 minutes. plan 1-maintain keppra 250 bid 2- maintain valproic and check valproic acid #45 3-In ICU intubated off jasper will follow Over all prognosis is quarded Subjective Date of service: 01/18/21 Principal diagnosis: witnessed seizure hx of ESRD ,hyponatremia Interval history: Intubated off sedation slightly open eyes to sternal rub not follow command , no witnessed seizure in ICU attempt to extubat yesterday end up with reintubation repeat EEG today showed diffuse slowing with no grey activity is noted Objective - Vital Sign Vital Signs - 12hr 01/18/21 01/18/21 01/18/21 02:00 02:10 02:20 Temperature Pulse Rate 95 H 94 H 94 H Pulse Rate [ From Monitor] Respiratory 20 21 Rate Blood Pressure 134/53 138/56 131/52 O2 Sat by Pulse 100 100 100 Oximetry 01/18/21 01/18/21 01/18/21 02:30 02:40 02:50 Temperature Pulse Rate 93 H 94 H 95 H Pulse Rate [ From Monitor] Respiratory 21 21 21 Rate Blood Pressure 130/52 130/52 121/53 O2 Sat by Pulse 100 100 100 Oximetry 01/18/21 01/18/21 01/18/21 03:00 03:10 03:20 Temperature Pulse Rate 96 H 89 96 H Pulse Rate [ From Monitor] Respiratory 19 22 21 Rate Blood Pressure 138/51 138/51 112/54 O2 Sat by Pulse 100 100 100 Oximetry 01/18/21 01/18/21 01/18/21 03:30 03:40 03:50 Temperature Pulse Rate 80 76 79 Pulse Rate [ From Monitor] Respiratory 22 20 21 Rate Blood Pressure 122/67 112/54 110/60 O2 Sat by Pulse 99 100 100 Oximetry 01/18/21 01/18/21 01/18/21 03:57 04:00 04:10 Temperature Pulse Rate 95 H 76 93 H Pulse Rate [ 78 From Monitor] Respiratory 20 23 Rate Blood Pressure 110/60 112/51 112/51 O2 Sat by Pulse 100 100 100 Oximetry 01/18/21 01/18/21 01/18/21 04:20 04:30 04:40 Temperature Pulse Rate 99 H 94 H 96 H Pulse Rate [ From Monitor] Respiratory 21 20 19 Rate Blood Pressure 123/55 129/69 129/69 O2 Sat by Pulse 100 100 100 Oximetry 01/18/21 01/18/21 01/18/21 04:50 05:00 05:10 Temperature Pulse Rate 98 H 95 H 78 Pulse Rate [ From Monitor] Respiratory 19 19 19 Rate Blood Pressure 117/72 133/47 129/69 O2 Sat by Pulse 100 100 100 Oximetry 01/18/21 01/18/21 01/18/21 05:20 05:30 05:40 Temperature Pulse Rate 96 H 96 H 78 Pulse Rate [ From Monitor] Respiratory 18 16 18 Rate Blood Pressure 115/52 97/73 97/73 O2 Sat by Pulse 100 86 100 Oximetry 01/18/21 01/18/21 01/18/21 05:50 06:00 06:10 Temperature Pulse Rate 94 H 107 H 78 Pulse Rate [ From Monitor] Respiratory 19 21 18 Rate Blood Pressure 118/63 110/49 110/49 O2 Sat by Pulse 100 96 99 Oximetry 01/18/21 01/18/21 01/18/21 06:20 06:30 06:40 Temperature Pulse Rate 101 H 95 H 78 Pulse Rate [ From Monitor] Respiratory 21 19 21 Rate Blood Pressure 114/53 115/66 115/66 O2 Sat by Pulse 100 100 95 Oximetry 01/18/21 01/18/21 01/18/21 06:50 07:00 07:10 Temperature 97.4 F L Pulse Rate 95 H 79 102 H Pulse Rate [ From Monitor] Respiratory 22 25 H 30 H Rate Blood Pressure 98/52 105/55 105/55 O2 Sat by Pulse 100 91 Oximetry 01/18/21 01/18/21 01/18/21 07:20 07:30 07:40 Temperature Pulse Rate 93 H 99 H 106 H Pulse Rate [ From Monitor] Respiratory 22 24 18 Rate Blood Pressure 100/52 109/57 109/57 O2 Sat by Pulse 89 94 99 Oximetry 01/18/21 01/18/21 01/18/21 07:50 08:00 08:10 Temperature Pulse Rate 100 H 102 H 100 H Pulse Rate [ From Monitor] Respiratory 22 21 19 Rate Blood Pressure 108/64 130/77 130/77 O2 Sat by Pulse 97 100 100 Oximetry 01/18/21 01/18/21 01/18/21 08:20 09:18 11:00 Temperature 97.5 F L Pulse Rate 98 H 99 H Pulse Rate [ From Monitor] Respiratory 20 Rate Blood Pressure 141/78 119/69 O2 Sat by Pulse 100 Oximetry 01/18/21 11:15 Temperature Pulse Rate 98 H Pulse Rate [ From Monitor] Respiratory Rate Blood Pressure 124/65 O2 Sat by Pulse 100 Oximetry - General Apperance Constitutional: comfortable - EENT EENT: PERRL, mucous membranes moist - Respiratory Respiratory: chest non-tender, lungs clear, rhonchi - Cardiovascular Cardiovascular: regular rate, normal S1, normal S2 Extremities: no peripheral edema bilat, no clubbing, cyanosis - Gastrointestinal Gastrointestinal: normoactive bowel sounds - Integumentary Integumentary: normal - Neurologic Cranial nerve examination: PERRL, EOMI, intact Speech examination: other (intubated) - Laboratory Findings CBC and BMP: 01/18/21 10:20 01/18/21 04:16 Abnormal Lab Findings: Abnormal Labs 01/12/21 01/12/21 01/12/21 14:12 14:36 14:36 WBC 11.2 H Hgb Hct MCV MCH 27 L RDW 21.0 H Plt Count Lymph % (Auto) Lymph # (Auto) Seg Neutrophils % 79.6 H Seg Neutrophils # 8.9 H ABG pH POC ABG pO2 ABG Hemoglobin ABG Oxyhemoglobin ABG Sodium ABG Potassium ABG Glucose Sodium 136 L Potassium Chloride 95.8 L Carbon Dioxide 19 L BUN Creatinine 2.0 H Glucose 163 H POC Glucose 166 H Calcium 8.2 L Phosphorus Ammonia Total Protein 5.4 L Albumin 3.4 L Arterial Blood Glucose Arterial Blood Ionized Calcium Phenytoin Valproic Acid 01/13/21 01/13/21 01/13/21 05:19 12:14 16:16 WBC Hgb Hct MCV MCH RDW Plt Count Lymph % (Auto) Lymph # (Auto) Seg Neutrophils % Seg Neutrophils # ABG pH POC ABG pO2 ABG Hemoglobin ABG Oxyhemoglobin ABG Sodium ABG Potassium ABG Glucose Sodium 134 L Potassium Chloride 95.5 L Carbon Dioxide BUN 23 H Creatinine 2.6 H Glucose 168 H POC Glucose 142 H 163 H Calcium Phosphorus Ammonia Total Protein 5.8 L Albumin 3.3 L Arterial Blood Glucose Arterial Blood Ionized Calcium Phenytoin Valproic Acid 01/13/21 01/13/21 01/14/21 20:22 23:57 06:31 WBC Hgb Hct MCV MCH RDW Plt Count Lymph % (Auto) Lymph # (Auto) Seg Neutrophils % Seg Neutrophils # ABG pH POC ABG pO2 ABG Hemoglobin ABG Oxyhemoglobin ABG Sodium ABG Potassium ABG Glucose Sodium Potassium Chloride Carbon Dioxide BUN Creatinine Glucose POC Glucose 209 H 189 H 236 H Calcium Phosphorus Ammonia Total Protein Albumin Arterial Blood Glucose Arterial Blood Ionized Calcium Phenytoin Valproic Acid 01/14/21 01/14/21 01/14/21 08:57 08:57 12:22 WBC 12.0 H Hgb 11.3 L Hct 34.5 L MCV MCH RDW 20.6 H Plt Count Lymph % (Auto) 6.4 L Lymph # (Auto) 0.8 L Seg Neutrophils % 87.4 H Seg Neutrophils # 10.5 H ABG pH POC ABG pO2 ABG Hemoglobin ABG Oxyhemoglobin ABG Sodium ABG Potassium ABG Glucose Sodium 131 L Potassium Chloride 93.7 L Carbon Dioxide BUN 37 H Creatinine 3.7 H Glucose 261 H POC Glucose 280 H Calcium Phosphorus Ammonia Total Protein Albumin Arterial Blood Glucose Arterial Blood Ionized Calcium Phenytoin Valproic Acid 01/14/21 01/14/2101/15/21 16:15 22:28 04:43 WBC Hgb Hct MCV MCH RDW Plt Count Lymph % (Auto) Lymph # (Auto) Seg Neutrophils % Seg Neutrophils # ABG pH POC ABG pO2 ABG Hemoglobin ABG Oxyhemoglobin ABG Sodium ABG Potassium ABG Glucose Sodium Potassium Chloride Carbon Dioxide BUN Creatinine Glucose POC Glucose 289 H 252 H 243 H Calcium Phosphorus Ammonia Total Protein Albumin Arterial Blood Glucose Arterial Blood Ionized Calcium Phenytoin Valproic Acid 01/15/21 01/15/21 01/15/21 05:22 05:22 08:56 WBC 11.1 H Hgb 11.0 L Hct 33.3 L MCV 83 L MCH 27 L RDW 20.6 H Plt Count Lymph % (Auto) 6.3 L Lymph # (Auto) 0.7 L Seg Neutrophils % 88.2 H Seg Neutrophils # 9.8 H ABG pH POC ABG pO2 ABG Hemoglobin ABG Oxyhemoglobin ABG Sodium ABG Potassium ABG Glucose Sodium 130 L Potassium Chloride 92.0 L Carbon Dioxide BUN 49 H Creatinine 4.2 H Glucose 241 H POC Glucose Calcium Phosphorus Ammonia Total Protein Albumin Arterial Blood Glucose Arterial Blood Ionized Calcium Phenytoin Valproic Acid 45.9 L 01/15/21 01/15/21 01/15/21 16:42 18:14 23:10 WBC Hgb Hct MCV MCH RDW Plt Count Lymph % (Auto) Lymph # (Auto) Seg Neutrophils % Seg Neutrophils # ABG pH 7.463 H POC ABG pO2 377.4 H ABG Hemoglobin 11.6 L ABG Oxyhemoglobin 98.6 H ABG Sodium 130.1 L ABG Potassium ABG Glucose 254 H Sodium Potassium Chloride Carbon Dioxide BUN Creatinine Glucose POC Glucose 218 H 279 H Calcium Phosphorus Ammonia Total Protein Albumin Arterial Blood Glucose 254 H Arterial Blood Ionized Calcium 4.5 L Phenytoin Valproic Acid 01/16/21 01/16/21 01/16/21 03:10 05:11 05:17 WBC Hgb 10.4 L Hct 31.8 L MCV MCH 27 L RDW 20.3 H Plt Count 132 L Lymph % (Auto) Lymph # (Auto) Seg Neutrophils % Seg Neutrophils # ABG pH POC ABG pO2 174.4 H ABG Hemoglobin 10.3 L ABG Oxyhemoglobin 98.6 H ABG Sodium 129.9 L ABG Potassium 3.2 L ABG Glucose 202 H Sodium Potassium Chloride Carbon Dioxide BUN Creatinine Glucose POC Glucose 193 H Calcium Phosphorus Ammonia Total Protein Albumin Arterial Blood Glucose 202 H Arterial Blood Ionized Calcium Phenytoin Valproic Acid 01/16/21 01/16/21 01/16/21 05:17 09:15 11:33 WBC Hgb Hct MCV MCH RDW Plt Count Lymph % (Auto) Lymph # (Auto) Seg Neutrophils % Seg Neutrophils # ABG pH POC ABG pO2 ABG Hemoglobin ABG Oxyhemoglobin ABG Sodium ABG Potassium ABG Glucose Sodium Potassium 3.4 L Chloride Carbon Dioxide BUN 36 H Creatinine 3.2 H Glucose 216 H POC Glucose 174 H Calcium 8.3 L Phosphorus 1.10 L Ammonia Total Protein Albumin Arterial Blood Glucose Arterial Blood Ionized Calcium Phenytoin 6.5 L Valproic Acid 01/16/21 01/17/21 01/17/21 18:13 00:10 04:00 WBC Hgb Hct MCV MCH RDW Plt Count Lymph % (Auto) Lymph # (Auto) Seg Neutrophils % Seg Neutrophils # ABG pH POC ABG pO2 ABG Hemoglobin 10.1 L ABG Oxyhemoglobin ABG Sodium 130.1 L ABG Potassium 3.3 L ABG Glucose 153 H Sodium Potassium Chloride Carbon Dioxide BUN Creatinine Glucose POC Glucose 162 H 150 H Calcium Phosphorus Ammonia Total Protein Albumin Arterial Blood Glucose 153 H Arterial Blood Ionized Calcium Phenytoin Valproic Acid 01/17/21 01/17/21 01/17/21 05:30 05:48 11:14 WBC Hgb Hct MCV MCH RDW Plt Count Lymph % (Auto) Lymph # (Auto) Seg Neutrophils % Seg Neutrophils # ABG pH POC ABG pO2 ABG Hemoglobin ABG Oxyhemoglobin ABG Sodium ABG Potassium ABG Glucose Sodium 136 L Potassium 3.5 L Chloride Carbon Dioxide BUN 48 H Creatinine 3.5 H Glucose 165 H POC Glucose 149 H Calcium 8.0 L Phosphorus 0.80 L* D Ammonia 22.0 L Total Protein Albumin Arterial Blood Glucose Arterial Blood Ionized Calcium Phenytoin Valproic Acid 01/17/21 01/17/21 01/17/21 11:43 17:34 18:46 WBC Hgb Hct MCV MCH RDW Plt Count Lymph % (Auto) Lymph # (Auto) Seg Neutrophils % Seg Neutrophils # ABG pH POC ABG pO2 ABG Hemoglobin ABG Oxyhemoglobin ABG Sodium ABG Potassium ABG Glucose Sodium Potassium Chloride Carbon Dioxide BUN Creatinine Glucose POC Glucose 160 H 209 H Calcium Phosphorus 2.20 L D Ammonia Total Protein Albumin Arterial Blood Glucose Arterial Blood Ionized Calcium Phenytoin Valproic Acid 01/17/21 01/17/21 01/18/21 19:00 23:19 03:28 WBC Hgb Hct MCV MCH RDW Plt Count Lymph % (Auto) Lymph # (Auto) Seg Neutrophils % Seg Neutrophils # ABG pH POC ABG pO2 190.2 H ABG Hemoglobin 11.9 L ABG Oxyhemoglobin 98.5 H ABG Sodium 130.9 L 131.0 L ABG Potassium 3.0 L 2.8 L ABG Glucose 241 H Sodium Potassium Chloride Carbon Dioxide BUN Creatinine Glucose POC Glucose 222 H Calcium Phosphorus Ammonia Total Protein Albumin Arterial Blood Glucose 241 H Arterial Blood Ionized Calcium 4.5 L Phenytoin Valproic Acid 01/18/21 01/18/21 01/18/21 04:16 06:20 10:20 WBC 14.1 H Hgb 11.2 L Hct 34.5 L MCV 83 L MCH 27 L RDW 20.8 H Plt Count 116 L Lymph % (Auto) Lymph # (Auto) Seg Neutrophils % Seg Neutrophils # ABG pH POC ABG pO2 ABG Hemoglobin ABG Oxyhemoglobin ABG Sodium ABG Potassium ABG Glucose Sodium 134 L Potassium 2.9 L* Chloride Carbon Dioxide 21 L BUN 60 H Creatinine 3.9 H Glucose POC Glucose 69 L Calcium Phosphorus 1.60 L D Ammonia Total Protein Albumin Arterial Blood Glucose Arterial Blood Ionized Calcium Phenytoin Valproic Acid 01/18/21 11:29 WBC Hgb Hct MCV MCH RDW Plt Count Lymph % (Auto) Lymph # (Auto) Seg Neutrophils % Seg Neutrophils # ABG pH POC ABG pO2 ABG Hemoglobin ABG Oxyhemoglobin ABG Sodium ABG Potassium ABG Glucose Sodium Potassium Chloride Carbon Dioxide BUN Creatinine Glucose POC Glucose 128 H Calcium Phosphorus Ammonia Total Protein Albumin Arterial Blood Glucose Arterial Blood Ionized Calcium Phenytoin Valproic Acid
[2021-01-18 14:50] LABS: Amphetamine Screen,Urine Negative; Cannabinoid Screen,Urine Negative; Cocaine Screen,Urine Negative; Methadone Screen,Urine Negative; Opiate Screen,Urine Negative
[2021-01-18] MEDS: PHOS-NAK POWDER PACKET PO SCH ×2 (14:50→22:51)
[2021-01-18 15:16] LABS: Benzodiazepines Screen,Urine PRESUMPTIVE POSITIVE
[2021-01-18 16:10] LABS: Calcium 8.2 mg/dL (8.4-10.2)
[2021-01-19] MEDS: INSULIN LISPRO 100 UNIT/ML SUB-Q SCH ×4 (01:49→18:41)
--- NOTE | 2021-01-19 01:59 | XRay Report ---
CHEST 1 VIEW 01/19/2021 12:11 AM INDICATION / CLINICAL INFORMATION: follow up respiratory failure. COMPARISON: 01/18/2021 FINDINGS: Patient is rotated SUPPORT DEVICES: Permacath and endotracheal tube appear unchanged HEART / MEDIASTINUM: Unchanged LUNGS / PLEURA: No significant pulmonary or pleural abnormality. No pneumothorax. ADDITIONAL FINDINGS: No significant additional findings. IMPRESSION: 1. No significant change given differences in patient positioning.. Signer Name: Jason Shelton MD Signed: 01/19/2021 1:55 AM Workstation Name: [id number]
[2021-01-19 05:59] LABS: Calcium 8.8 mg/dL (8.4-10.2)
[2021-01-19] MEDS: VALPROATE SODIUM 500 MG in SODIUM CHLORIDE 0.9% 100 ML IV SCH ×3 (06:31→21:24)
[2021-01-19] MEDS: PHOS-NAK POWDER PACKET PO SCH (06:31)
[2021-01-19] MEDS: LINAGLIPTIN 5 MG TAB PO SCH (08:45)
[2021-01-19] MEDS: CALCITRIOL 0.5 MCG CAP PO SCH (09:00)
[2021-01-19] MEDS: LANSOPRAZOLE 30 MG SOLUTAB FEEDTUBE SCH ×2 (09:00→21:24)
[2021-01-19] MEDS: TIMOLOL 0.5% OPHTH SOLN 5 ML OU SCH (09:00)
[2021-01-19] MEDS: DOXAZOSIN 1 MG TAB PO SCH (09:00)
[2021-01-19] MEDS: levETIRAcetam 250 MG in DEXTROSE 5% IN WATER (50 ML) 50 ML IV SCH ×2 (09:03→21:25)
[2021-01-19] MEDS: SODIUM CHLORIDE IV SCH (09:05)
[2021-01-19] MEDS: [UNRECOGNIZED DRUG - OTHER] IV SCH (09:05)
[2021-01-19] MEDS: FOSPHENYTOIN IV SCH (09:05)
--- NOTE | 2021-01-19 09:45 | Progress Note ---
Assessment and Plan 1.ESRD: Patient is on maintenance hemodialysis three times a week, TTS schedule. Last outpatient HD 01/12/2021. Meds dosage based on GFR. Hemodialysis: 01/15, 01/16, 01/17(UF). HD today. 2. FEN: Volume overload, UF with HD. Hyponatremia, improved, monitor. Replete Phos. Monitor lytes and volume status. 3. Acute resp failure: Currently intubated, on vent. Extubated 01/17. Re-intubated 01/17. Wean as tolerated. 4. Shock: Off pressors. Monitor. 5. New onset of possible witnessed seizure during dialysis: CT brain is remarkable for white matter changes. Valproate. S/p Keppra 500 mg IV. MRI brain: small SDH, chronic changes. Seizure precaution. Followed by Neuro. 6. Advanced dementia: CT white matter changes. 7. Failure to thrive: PEG tube. 8. Anemia, POA: Epogen with HD. 9. DM type 2. 10. Acute metabolic encephalopathy. D/w primary team. Subjective: Patient was seen and examined at the bedside. Examination: General appearance: well-developed, appears stated age, no distress, intubated, on vent HEENT: ATNC, CELINA Neck: Trachea midline Respiratory: ctab Cardiology: regular, S1S2, no murmur Abdomen: soft, not tender, BS heard, Peg tube noted Integumentary: warm, dry, no obvious rash Neurologic: not responding Ext: no edema noted Hemodialysis catheter: R IJ tunnel catheter Subjective Date of service: 01/19/21 Principal diagnosis: witnessed seizure hx of ESRD ,hyponatremia Objective - Vital Signs Vital signs: Vital Signs - 12hr 01/18/21 01/18/21 01/18/21 21:50 22:00 22:10 Temperature Pulse Rate 114 H 113 H 114 H Pulse Rate [ From Monitor] Respiratory 20 24 22 Rate Blood Pressure 135/75 130/76 140/78 O2 Sat by Pulse 100 Oximetry 01/18/21 01/18/21 01/18/21 22:20 22:30 22:40 Temperature Pulse Rate 113 H 113 H 114 H Pulse Rate [ From Monitor] Respiratory 25 H 24 25 H Rate Blood Pressure 135/76 136/76 133/75 O2 Sat by Pulse 100 100 Oximetry 01/18/21 01/18/21 01/18/21 22:50 23:00 23:10 Temperature 98.2 F Pulse Rate 114 H 112 H 115 H Pulse Rate [ From Monitor] Respiratory 25 H 21 28 H Rate Blood Pressure 145/79 136/73 122/64 O2 Sat by Pulse 99 100 Oximetry 01/18/21 01/18/21 01/18/21 23:20 23:30 23:32 Temperature Pulse Rate 114 H 113 H 113 H Pulse Rate [ From Monitor] Respiratory 29 H 24 26 H Rate Blood Pressure 119/63 109/59 109/59 O2 Sat by Pulse 100 100 100 Oximetry 01/18/21 01/18/21 01/18/21 23:40 23:50 23:51 Temperature 98.2 F Pulse Rate 113 H 112 H Pulse Rate [ From Monitor] Respiratory 23 23 Rate Blood Pressure 113/60 104/59 O2 Sat by Pulse 100 Oximetry 01/19/21 01/19/21 01/19/21 00:00 00:10 00:12 Temperature Pulse Rate 112 H 117 H 116 H Pulse Rate [ 114 H From Monitor] Respiratory 25 H 25 H Rate Blood Pressure 113/59 114/64 114/64 O2 Sat by Pulse 99 99 100 Oximetry 01/19/21 01/19/21 01/19/21 00:20 00:30 00:40 Temperature Pulse Rate 111 H 114 H 113 H Pulse Rate [ From Monitor] Respiratory 19 18 18 Rate Blood Pressure 119/66 123/66 111/63 O2 Sat by Pulse Oximetry 01/19/21 01/19/21 01/19/21 00:50 01:00 01:10 Temperature Pulse Rate 113 H 114 H 108 H Pulse Rate [ From Monitor] Respiratory 25 H 17 21 Rate Blood Pressure 115/65 122/69 116/63 O2 Sat by Pulse 99 99 Oximetry 01/19/21 01/19/21 01/19/21 01:20 01:30 01:40 Temperature Pulse Rate 108 H 107 H 106 H Pulse Rate [ From Monitor] Respiratory 22 22 20 Rate Blood Pressure 99/57 103/59 106/56 O2 Sat by Pulse Oximetry 01/19/21 01/19/21 01/19/21 01:50 02:00 02:10 Temperature Pulse Rate 108 H 108 H 106 H Pulse Rate [ From Monitor] Respiratory 21 20 20 Rate Blood Pressure 112/64 127/67 127/70 O2 Sat by Pulse 100 99 Oximetry 01/19/21 01/19/21 01/19/21 02:20 02:30 02:40 Temperature Pulse Rate 108 H 109 H 107 H Pulse Rate [ From Monitor] Respiratory 17 19 22 Rate Blood Pressure 124/70 127/72 121/66 O2 Sat by Pulse 100 100 Oximetry 01/19/21 01/19/21 01/19/21 02:50 03:00 03:10 Temperature 99.3 F Pulse Rate 109 H 108 H 107 H Pulse Rate [ From Monitor] Respiratory 18 17 23 Rate Blood Pressure 113/68 115/64 120/65 O2 Sat by Pulse 100 100 100 Oximetry 01/19/21 01/19/21 01/19/21 03:20 03:30 03:40 Temperature Pulse Rate 106 H 105 H 107 H Pulse Rate [ From Monitor] Respiratory 22 24 23 Rate Blood Pressure 115/61 116/63 116/66 O2 Sat by Pulse 100 100 100 Oximetry 01/19/21 01/19/21 01/19/21 03:50 03:59 04:00 Temperature Pulse Rate 107 H 107 H 108 H Pulse Rate [ 108 H From Monitor] Respiratory 22 19 Rate Blood Pressure 116/56 118/67 O2 Sat by Pulse 100 100 100 Oximetry 01/19/21 01/19/21 01/19/21 04:10 04:20 04:30 Temperature Pulse Rate 96 H 112 H 105 H Pulse Rate [ From Monitor] Respiratory 24 18 17 Rate Blood Pressure 119/62 114/65 112/69 O2 Sat by Pulse 100 100 100 Oximetry 01/19/21 01/19/21 01/19/21 04:40 04:50 05:00 Temperature Pulse Rate 95 H 109 H 109 H Pulse Rate [ From Monitor] Respiratory 22 16 24 Rate Blood Pressure 121/58 122/67 130/68 O2 Sat by Pulse 100 100 100 Oximetry 01/19/21 01/19/21 01/19/21 05:10 05:20 05:30 Temperature Pulse Rate 103 H 110 H 103 H Pulse Rate [ From Monitor] Respiratory 21 24 22 Rate Blood Pressure 119/65 121/72 116/59 O2 Sat by Pulse 100 100 100 Oximetry 01/19/21 01/19/21 01/19/21 05:40 05:50 06:00 Temperature Pulse Rate 110 H 113 H 114 H Pulse Rate [ From Monitor] Respiratory 22 22 22 Rate Blood Pressure 118/62 116/65 120/66 O2 Sat by Pulse 100 100 Oximetry 01/19/21 01/19/21 01/19/21 06:10 06:20 06:30 Temperature Pulse Rate 111 H 100 H 116 H Pulse Rate [ From Monitor] Respiratory 24 15 22 Rate Blood Pressure 120/66 124/69 124/69 O2 Sat by Pulse 99 100 Oximetry 01/19/21 01/19/21 01/19/21 06:40 06:50 07:00 Temperature Pulse Rate 114 H 115 H 115 H Pulse Rate [ From Monitor] Respiratory 24 21 25 H Rate Blood Pressure 131/76 141/73 137/71 O2 Sat by Pulse 99 100 100 Oximetry 01/19/21 01/19/21 01/19/21 07:10 07:18 07:20 Temperature Pulse Rate 115 H 114 H 114 H Pulse Rate [ From Monitor] Respiratory 23 24 Rate Blood Pressure 128/72 118/65 O2 Sat by Pulse Oximetry 01/19/21 01/19/21 01/19/21 07:30 07:35 07:40 Temperature 98.8 F Pulse Rate 113 H 112 H Pulse Rate [ From Monitor] Respiratory 18 22 Rate Blood Pressure 108/63 112/60 O2 Sat by Pulse 100 Oximetry 01/19/21 01/19/21 01/19/21 07:50 07:59 08:00 Temperature Pulse Rate 112 H 112 H 112 H Pulse Rate [ From Monitor] Respiratory 18 21 Rate Blood Pressure 107/60 107/60 107/60 O2 Sat by Pulse 100 Oximetry 01/19/21 01/19/21 01/19/21 08:10 08:20 08:30 Temperature Pulse Rate 112 H 112 H 114 H Pulse Rate [ From Monitor] Respiratory 22 20 19 Rate Blood Pressure 106/63 104/58 106/63 O2 Sat by Pulse Oximetry 01/19/21 01/19/21 01/19/21 08:40 08:47 09:00 Temperature Pulse Rate 113 H 114 H Pulse Rate [ 113 H From Monitor] Respiratory 25 H 25 H Rate Blood Pressure 115/64 112/65 O2 Sat by Pulse 100 100 Oximetry - Lab 01/18/21 10:20 01/19/21 04:38 Most recent lab results ABG pH 7.536 (7.320-7.450) H 01/19/21 03:43 ABG O2 Saturation 99.6 (0-100) 01/19/21 03:43 Calcium 8.8 mg/dL (8.4-10.2) 01/19/21 04:38 Phosphorus 1.10 mg/dL (2.5-4.5) L 01/19/21 04:38 Magnesium 1.90 mg/dL (1.7-2.3) 01/19/21 04:38 Medications & Allergies - Medications Allergies/Adverse Reactions: Allergies No Known Allergies Allergy (Verified 08/14/19 16:11) Home Medications: Home Medications Medication Instructions Recorded Confirmed Last Taken Type Alogliptin Benzoate [Alogliptin] 1 tab PO DAILY 10/02/20 10/25/20 Unknown History Sevelamer Carbonate [Renvela] 800 mg PO TIDWM 10/02/20 10/25/20 Unknown History buprenorphine hcl [Subutex] 2 mg SL QDAY PRN 10/02/20 10/25/20 Unknown History AtorvaSTATin [Lipitor] 40 mg PO QHS #30 10/11/20 10/25/20 Unknown Rx Docusate Sodium [Colace CAP] 100 mg PO BID PRN #60 cap 10/11/20 10/25/20 Unknown Rx Doxazosin [Cardura] 4 mg PO QDAY #30 10/11/20 10/25/20 Unknown Rx Febuxostat 40 mg PO QDAY #30 10/11/20 10/25/20 Unknown Rx Ketotifen Fumarate 1 drop OU QDAY #1 bottle 10/11/20 10/25/20 Unknown Rx Lansoprazole Solutab [Prevacid 30 mg FEEDTUBE BID #60 tab.rapdis 10/11/20 10/25/20 Unknown Rx Solutab] Megestrol Acetate 40 mg PO QDAY #30 10/11/20 10/25/20 Unknown Rx Metoprolol [Lopressor TAB] 12.5 mg PO BID #60 tablet 10/11/20 10/25/20 Unknown Rx calcitrioL [Rocaltrol] 1 mcg PO QDAY #30 cap 10/11/20 10/25/20 Unknown Rx timoloL maleate [Timolol Maleate 1 drop OP BID #1 bottle 10/11/20 10/25/20 Unknown Rx 0.25%] Active Medications: Generic Name Dose Route Start Last Admin Trade Name Freq PRN Reason Stop Dose Admin Acetaminophen 650 mg 01/12/21 19:30 Acetaminophen 325 Mg Tab PO Q4H PRN Pain MILD(1-3)/Fever >100.5/ABEL Albuterol 2.5 mg 01/12/21 19:30 Albuterol 2.5 Mg/3 Ml Nebu IH Q4HRT PRN Shortness Of Breath Lipase/Protease/Amylase 1 each 01/13/21 10:11 Lipase 10,500/Protease 25,000/Amylase 43,750 (Units) Dr Cap FEEDTUBE PRN PRN For Clogged Feeding Tube Atorvastatin Calcium 40 mg 01/12/21 22:00 01/18/21 22:51 Atorvastatin 40 Mg Tab PO 40 mg QHS NOLAN Administration Calcitriol 1 mcg 01/13/21 10:00 01/19/21 09:00 Calcitriol 0.5 Mcg Cap PO 1 mcg QDAY NOLAN Administration Docusate Sodium 100 mg 01/17/21 09:00 Docusate Sodium 100 Mg/10 Ml Oral Liqd PO BID PRN Constipation Doxazosin Mesylate 2 mg 01/18/21 10:00 01/19/21 09:00 Doxazosin 1 Mg Tab PO 2 mg QDAY NOLAN Administration Fentanyl 25 mcg 01/17/21 18:10 Fentanyl 100 Mcg/2 Ml Inj IV Q2HR PRN Pain , Severe (7-10) Hydrophilic Ointment 1 applic 01/15/21 17:14 Lip Therapy Vaseline TP Q2HR PRN Dry Lips Valproate Sodium 500 mg/ 105 mls @ 100 mls/hr 01/14/21 22:00 01/19/21 06:31 Sodium Chloride IV 100 mls/hr Q8H NOLAN Administration Sodium Chloride 100 mls @ 999 mls/hr 01/15/21 08:00 Nacl 0.9% IV DIONNA PRN Hypotension Fosphenytoin Sodium 100 mg.pe/ 102 mls @ 200 mls/hr 01/15/21 20:00 01/19/21 09:05 Sodium Chloride IV 200 mls/hr TID NOLAN Administration Norepinephrine 4 mg in 250 mls @ 7.5 mls/hr 01/15/21 19:00 01/16/21 09:15 Levophed Drip 4 Mg/Ns 250 Ml IV 0 mcg/min TITR NOLAN 0 mls/hr Titration Protocol 2 MCG/MIN Levetiracetam 250 mg/ Dextrose 52.5 mls @ 200 mls/hr 01/15/21 22:00 01/19/21 09:03 IV 200 mls/hr Q12HR NOLAN Administration Insulin Human Lispro 0 unit 01/16/21 00:00 01/19/21 06:31 Insulin Lispro 100 Unit/Ml SUB-Q Not Given Q6HR NOLAN Protocol Lansoprazole 30 mg 01/12/21 22:00 01/19/21 09:00 Lansoprazole 30 Mg Solutab FEEDTUBE 30 mg BID NOLAN Administration Linagliptin 5 mg 01/13/21 11:00 01/19/21 08:45 Linagliptin 5 Mg Tab PO 5 mg QDDIAB NOLAN Administration Multi-Ingred Cream/Lotion/Oil/Oint 1 applic 01/15/21 17:14 Mineral Oil/Petrolatum, White Ophth Oint 3.5 Gm OU Q4HR PRN Dry Eye(s) Ondansetron HCl 4 mg 01/12/21 19:30 Ondansetron 4 Mg/2 Ml Inj IV Q8H PRN Nausea And Vomiting Potassium Phos/Sodium Phos 2 each 01/18/21 14:00 01/19/21 06:31 Phos-Nak Powder Packet PO 01/19/21 13:59 2 each Q8HR NOLAN Administration Simple Syrup 15 ml 01/13/21 10:11 01/18/21 06:54 Simple Syrup 15 Ml FEEDTUBE 15 ml PRN PRN Administration Hypoglycemia Simple Syrup 30 ml 01/13/21 10:11 Simple Syrup 15 Ml FEEDTUBE PRN PRN Hypoglycemia Sodium Bicarbonate 325 mg 01/13/21 10:11 Sodium Bicarbonate 325 Mg Tab FEEDTUBE PRN PRN For Clogged Feeding Tube Sodium Chloride 10 ml 01/12/21 22:00 01/19/21 09:01 Sodium Chloride 0.9% 10 Ml Flush Syringe IV 10 ml BID NOLAN Administration Sodium Chloride 10 ml 01/12/21 19:30 Sodium Chloride 0.9% 10 Ml Flush Syringe IV PRN PRN LINE FLUSH Timolol Maleate 1 drops 01/17/21 10:00 01/19/21 09:00 Timolol 0.5% Ophth Soln 5 Ml OU 1 drops QDAY NOLAN Administration
--- NOTE | 2021-01-19 09:53 | Progress Note ---
Assessment and Plan 80 y/o with chronic seizure disorder, ESRD, HTN admitted with status epilepticus, requiring intubation for burst suppression. 01/19/21: Dropped FiO2 to 45%. Await neurology eval today but need to consider repeat imaging of head as I have not explanation as to why patient is not responsive. Patient does not make any urine so not able to send UDS. Had HD on yesterday so next one would likely be Thursday. Renal to address electrolytes. Very very guarded prognosis. 01/18/21: EEG not officially read, but prelim is negative for seizures, just diffuse slowing. ABG is stable, not hypercapnic. Will send UDS to see if benzos are still in system. spoke with renal who will do HD today and manage electrolytes. DId order mag level given low levels of potassium. Overall prognosis is very guarded to poor. If not more responsive tomorrow, may need to consider repeat imaging of head/brain. 01/17/21: Extubate. HD today per renal. If tolerates both, transfer back to floor on new anti-epileptic regimen 1. Continue Versed at 3mg IV per Hour for the next 24 hours. 2. Repeat EEG tomorrow off Versed. 3. Will attempt to get this before HD tomorrow. 4. HD per renal, tomorrow as patient got HD yesterday CCT 31 minutes. Subjective Date of service: 01/19/21 Principal diagnosis: witnessed seizure hx of ESRD ,hyponatremia Interval history: No seizures on repeat EEG. Seizure medication reduced but still unresponsive this am. on minimal vent support. BP stable. Objective Vital Signs - 12hr 01/18/21 01/18/21 01/18/21 21:50 22:00 22:10 Temperature Pulse Rate 114 H 113 H 114 H Pulse Rate [ From Monitor] Respiratory 20 24 22 Rate Blood Pressure 135/75 130/76 140/78 O2 Sat by Pulse 100 Oximetry 01/18/21 01/18/21 01/18/21 22:20 22:30 22:40 Temperature Pulse Rate 113 H 113 H 114 H Pulse Rate [ From Monitor] Respiratory 25 H 24 25 H Rate Blood Pressure 135/76 136/76 133/75 O2 Sat by Pulse 100 100 Oximetry 01/18/21 01/18/21 01/18/21 22:50 23:00 23:10 Temperature 98.2 F Pulse Rate 114 H 112 H 115 H Pulse Rate [ From Monitor] Respiratory 25 H 21 28 H Rate Blood Pressure 145/79 136/73 122/64 O2 Sat by Pulse 99 100 Oximetry 01/18/21 01/18/21 01/18/21 23:20 23:30 23:32 Temperature Pulse Rate 114 H 113 H 113 H Pulse Rate [ From Monitor] Respiratory 29 H 24 26 H Rate Blood Pressure 119/63 109/59 109/59 O2 Sat by Pulse 100 100 100 Oximetry 01/18/21 01/18/21 01/18/21 23:40 23:50 23:51 Temperature 98.2 F Pulse Rate 113 H 112 H Pulse Rate [ From Monitor] Respiratory 23 23 Rate Blood Pressure 113/60 104/59 O2 Sat by Pulse 100 Oximetry 01/19/21 01/19/21 01/19/21 00:00 00:10 00:12 Temperature Pulse Rate 112 H 117 H 116 H Pulse Rate [ 114 H From Monitor] Respiratory 25 H 25 H Rate Blood Pressure 113/59 114/64 114/64 O2 Sat by Pulse 99 99 100 Oximetry 01/19/21 01/19/21 01/19/21 00:20 00:30 00:40 Temperature Pulse Rate 111 H 114 H 113 H Pulse Rate [ From Monitor] Respiratory 19 18 18 Rate Blood Pressure 119/66 123/66 111/63 O2 Sat by Pulse Oximetry 01/19/21 01/19/21 01/19/21 00:50 01:00 01:10 Temperature Pulse Rate 113 H 114 H 108 H Pulse Rate [ From Monitor] Respiratory 25 H 17 21 Rate Blood Pressure 115/65 122/69 116/63 O2 Sat by Pulse 99 99 Oximetry 01/19/21 01/19/21 01/19/21 01:20 01:30 01:40 Temperature Pulse Rate 108 H 107 H 106 H Pulse Rate [ From Monitor] Respiratory 22 22 20 Rate Blood Pressure 99/57 103/59 106/56 O2 Sat by Pulse Oximetry 01/19/21 01/19/21 01/19/21 01:50 02:00 02:10 Temperature Pulse Rate 108 H 108 H 106 H Pulse Rate [ From Monitor] Respiratory 21 20 20 Rate Blood Pressure 112/64 127/67 127/70 O2 Sat by Pulse 100 99 Oximetry 01/19/21 01/19/21 01/19/21 02:20 02:30 02:40 Temperature Pulse Rate 108 H 109 H 107 H Pulse Rate [ From Monitor] Respiratory 17 19 22 Rate Blood Pressure 124/70 127/72 121/66 O2 Sat by Pulse 100 100 Oximetry 01/19/21 01/19/21 01/19/21 02:50 03:00 03:10 Temperature 99.3 F Pulse Rate 109 H 108 H 107 H Pulse Rate [ From Monitor] Respiratory 18 17 23 Rate Blood Pressure 113/68 115/64 120/65 O2 Sat by Pulse 100 100 100 Oximetry 01/19/21 01/19/21 01/19/21 03:20 03:30 03:40 Temperature Pulse Rate 106 H 105 H 107 H Pulse Rate [ From Monitor] Respiratory 22 24 23 Rate Blood Pressure 115/61 116/63 116/66 O2 Sat by Pulse 100 100 100 Oximetry 01/19/21 01/19/21 01/19/21 03:50 03:59 04:00 Temperature Pulse Rate 107 H 107 H 108 H Pulse Rate [ 108 H From Monitor] Respiratory 22 19 Rate Blood Pressure 116/56 118/67 O2 Sat by Pulse 100 100 100 Oximetry 01/19/21 01/19/21 01/19/21 04:10 04:20 04:30 Temperature Pulse Rate 96 H 112 H 105 H Pulse Rate [ From Monitor] Respiratory 24 18 17 Rate Blood Pressure 119/62 114/65 112/69 O2 Sat by Pulse 100 100 100 Oximetry 01/19/21 01/19/21 01/19/21 04:40 04:50 05:00 Temperature Pulse Rate 95 H 109 H 109 H Pulse Rate [ From Monitor] Respiratory 22 16 24 Rate Blood Pressure 121/58 122/67 130/68 O2 Sat by Pulse 100 100 100 Oximetry 01/19/21 01/19/21 01/19/21 05:10 05:20 05:30 Temperature Pulse Rate 103 H 110 H 103 H Pulse Rate [ From Monitor] Respiratory 21 24 22 Rate Blood Pressure 119/65 121/72 116/59 O2 Sat by Pulse 100 100 100 Oximetry 01/19/21 01/19/21 01/19/21 05:40 05:50 06:00 Temperature Pulse Rate 110 H 113 H 114 H Pulse Rate [ From Monitor] Respiratory 22 22 22 Rate Blood Pressure 118/62 116/65 120/66 O2 Sat by Pulse 100 100 Oximetry 01/19/21 01/19/2121 06:10 06:20 06:30 Temperature Pulse Rate 111 H 100 H 116 H Pulse Rate [ From Monitor] Respiratory 24 15 22 Rate Blood Pressure 120/66 124/69 124/69 O2 Sat by Pulse 99 100 Oximetry 01/19/21 01/19/21 01/19/21 06:40 06:50 07:00 Temperature Pulse Rate 114 H 115 H 115 H Pulse Rate [ From Monitor] Respiratory 24 21 25 H Rate Blood Pressure 131/76 141/73 137/71 O2 Sat by Pulse 99 100 100 Oximetry 01/19/21 01/19/21 01/19/21 07:10 07:18 07:20 Temperature Pulse Rate 115 H 114 H 114 H Pulse Rate [ From Monitor] Respiratory 23 24 Rate Blood Pressure 128/72 118/65 O2 Sat by Pulse Oximetry 01/19/21 01/19/21 01/19/21 07:30 07:35 07:40 Temperature 98.8 F Pulse Rate 113 H 112 H Pulse Rate [ From Monitor] Respiratory 18 22 Rate Blood Pressure 108/63 112/60 O2 Sat by Pulse 100 Oximetry 01/19/21 01/19/21 01/19/21 07:50 07:59 08:00 Temperature Pulse Rate 112 H 112 H 112 H Pulse Rate [ From Monitor] Respiratory 18 21 Rate Blood Pressure 107/60 107/60 107/60 O2 Sat by Pulse 100 Oximetry 01/19/21 01/19/21 01/19/21 08:10 08:20 08:30 Temperature Pulse Rate 112 H 112 H 114 H Pulse Rate [ From Monitor] Respiratory 22 20 19 Rate Blood Pressure 106/63 104/58 106/63 O2 Sat by Pulse Oximetry 01/19/21 01/19/21 01/19/21 08:40 08:47 09:00 Temperature Pulse Rate 113 H 114 H Pulse Rate [ 113 H From Monitor] Respiratory 25 H 25 H Rate Blood Pressure 115/64 112/65 O2 Sat by Pulse 100 100 Oximetry Constitutional: no acute distress, comatose (secondary to meds for seizure) ENT: other (orally intubated and sedated) Neck: supple Effort: normal Ascultation: Bilateral: clear Cardiovascular: regular rate and rhythm Gastrointestinal: normoactive bowel sounds Integumentary: normal Extremities: no edema, pulses normal CBC and BMP: 01/18/21 10:20 01/19/21 04:38 ABG, PT/INR, D-dimer: ABG ABG pH 7.536 (7.320-7.450) H 01/19/21 03:43 POC ABG pCO2 27.0 mmHg (32.0-48.0) L 01/19/21 03:43 POC ABG pO2 165.8 mmHg (83-108) H 01/19/21 03:43 POC ABG HCO3 22.4 01/19/21 03:43 ABG O2 Saturation 99.6 (0-100) 01/19/21 03:43 Abnormal lab findings: Abnormal Labs 01/12/21 01/12/21 01/12/21 14:12 14:36 14:36 WBC 11.2 H Hgb Hct MCV MCH 27 L RDW 21.0 H Plt Count Lymph % (Auto) Lymph # (Auto) Seg Neutrophils % 79.6 H Seg Neutrophils # 8.9 H ABG pH POC ABG pCO2 POC ABG pO2 ABG Hemoglobin ABG Oxyhemoglobin ABG Sodium ABG Potassium ABG Glucose Sodium 136 L Potassium Chloride 95.8 L Carbon Dioxide 19 L BUN Creatinine 2.0 H Glucose 163 H POC Glucose 166 H Calcium 8.2 L Phosphorus Ammonia Total Protein 5.4 L Albumin 3.4 L Arterial Blood Glucose Arterial Blood Ionized Calcium Phenytoin Valproic Acid 01/13/21 01/13/21 01/13/21 05:19 12:14 16:16 WBC Hgb Hct MCV MCH RDW Plt Count Lymph % (Auto) Lymph # (Auto) Seg Neutrophils % Seg Neutrophils # ABG pH POC ABG pCO2 POC ABG pO2 ABG Hemoglobin ABG Oxyhemoglobin ABG Sodium ABG Potassium ABG Glucose Sodium 134 L Potassium Chloride 95.5 L Carbon Dioxide BUN 23 H Creatinine 2.6 H Glucose 168 H POC Glucose 142 H 163 H Calcium Phosphorus Ammonia Total Protein 5.8 L Albumin 3.3 L Arterial Blood Glucose Arterial Blood Ionized Calcium Phenytoin Valproic Acid 01/13/21 01/13/21 01/14/21 20:22 23:57 06:31 WBC Hgb Hct MCV MCH RDW Plt Count Lymph % (Auto) Lymph # (Auto) Seg Neutrophils % Seg Neutrophils # ABG pH POC ABG pCO2 POC ABG pO2 ABG Hemoglobin ABG Oxyhemoglobin ABG Sodium ABG Potassium ABG Glucose Sodium Potassium Chloride Carbon Dioxide BUN Creatinine Glucose POC Glucose 209 H 189 H 236 H Calcium Phosphorus Ammonia Total Protein Albumin Arterial Blood Glucose Arterial Blood Ionized Calcium Phenytoin Valproic Acid 01/14/21 01/14/21 01/14/21 08:57 08:57 12:22 WBC 12.0 H Hgb 11.3 L Hct 34.5 L MCV MCH RDW 20.6 H Plt Count Lymph % (Auto) 6.4 L Lymph # (Auto) 0.8 L Seg Neutrophils % 87.4 H Seg Neutrophils # 10.5 H ABG pH POC ABG pCO2 POC ABG pO2 ABG Hemoglobin ABG Oxyhemoglobin ABG Sodium ABG Potassium ABG Glucose Sodium 131 L Potassium Chloride 93.7 L Carbon Dioxide BUN 37 H Creatinine 3.7 H Glucose 261 H POC Glucose 280 H Calcium Phosphorus Ammonia Total Protein Albumin Arterial Blood Glucose Arterial Blood Ionized Calcium Phenytoin Valproic Acid 01/14/21 01/14/21 01/15/21 16:15 22:28 04:43 WBC Hgb Hct MCV MCH RDW Plt Count Lymph % (Auto) Lymph # (Auto) Seg Neutrophils % Seg Neutrophils # ABG pH POC ABG pCO2 POC ABG pO2 ABG Hemoglobin ABG Oxyhemoglobin ABG Sodium ABG Potassium ABG Glucose Sodium Potassium Chloride Carbon Dioxide BUN Creatinine Glucose POC Glucose 289 H 252 H 243 H Calcium Phosphorus Ammonia Total Protein Albumin Arterial Blood Glucose Arterial Blood Ionized Calcium Phenytoin Valproic Acid 01/15/21 01/15/21 01/15/21 05:22 05:22 08:56 WBC 11.1 H Hgb 11.0 L Hct 33.3 L MCV 83 L MCH 27 L RDW 20.6 H Plt Count Lymph % (Auto) 6.3 L Lymph # (Auto) 0.7 L Seg Neutrophils % 88.2 H Seg Neutrophils # 9.8 H ABG pH POC ABG pCO2 POC ABG pO2 ABG Hemoglobin ABG Oxyhemoglobin ABG Sodium ABG Potassium ABG Glucose Sodium 130 L Potassium Chloride 92.0 L Carbon Dioxide BUN 49 H Creatinine 4.2 H Glucose 241 H POC Glucose Calcium Phosphorus Ammonia Total Protein Albumin Arterial Blood Glucose Arterial Blood Ionized Calcium Phenytoin Valproic Acid 45.9 L 01/15/21 01/15/21 01/15/21 16:42 18:14 23:10 WBC Hgb Hct MCV MCH RDW Plt Count Lymph % (Auto) Lymph # (Auto) Seg Neutrophils % Seg Neutrophils # ABG pH 7.463 H POC ABG pCO2 POC ABG pO2 377.4 H ABG Hemoglobin 11.6 L ABG Oxyhemoglobin 98.6 H ABG Sodium 130.1 L ABG Potassium ABG Glucose 254 H Sodium Potassium Chloride Carbon Dioxide BUN Creatinine Glucose POC Glucose 218 H 279 H Calcium Phosphorus Ammonia Total Protein Albumin Arterial Blood Glucose 254 H Arterial Blood Ionized Calcium 4.5 L Phenytoin Valproic Acid 01/16/21 01/16/21 01/16/21 03:10 05:11 05:17 WBC Hgb 10.4 L Hct 31.8 L MCV MCH 27 L RDW 20.3 H Plt Count 132 L Lymph % (Auto) Lymph # (Auto) Seg Neutrophils % Seg Neutrophils # ABG pH POC ABG pCO2 POC ABG pO2 174.4 H ABG Hemoglobin 10.3 L ABG Oxyhemoglobin 98.6 H ABG Sodium 129.9 L ABG Potassium 3.2 L ABG Glucose 202 H Sodium Potassium Chloride Carbon Dioxide BUN Creatinine Glucose POC Glucose 193 H Calcium Phosphorus Ammonia Total Protein Albumin Arterial Blood Glucose 202 H Arterial Blood Ionized Calcium Phenytoin Valproic Acid 01/16/21 01/16/21 01/16/21 05:17 09:15 11:33 WBC Hgb Hct MCV MCH RDW Plt Count Lymph % (Auto) Lymph # (Auto) Seg Neutrophils % Seg Neutrophils # ABG pH POC ABG pCO2 POC ABG pO2 ABG Hemoglobin ABG Oxyhemoglobin ABG Sodium ABG Potassium ABG Glucose Sodium Potassium 3.4 L Chloride Carbon Dioxide BUN 36 H Creatinine 3.2 H Glucose 216 H POC Glucose 174 H Calcium 8.3 L Phosphorus 1.10 L Ammonia Total Protein Albumin Arterial Blood Glucose Arterial Blood Ionized Calcium Phenytoin 6.5 L Valproic Acid 01/16/21 01/17/21 01/17/21 18:13 00:10 04:00 WBC Hgb Hct MCV MCH RDW Plt Count Lymph % (Auto) Lymph # (Auto) Seg Neutrophils % Seg Neutrophils # ABG pH POC ABG pCO2 POC ABG pO2 ABG Hemoglobin 10.1 L ABG Oxyhemoglobin ABG Sodium 130.1 L ABG Potassium 3.3 L ABG Glucose 153 H Sodium Potassium Chloride Carbon Dioxide BUN Creatinine Glucose POC Glucose 162 H 150 H Calcium Phosphorus Ammonia Total Protein Albumin Arterial Blood Glucose 153 H Arterial Blood Ionized Calcium Phenytoin Valproic Acid 01/17/21 01/17/21 01/17/21 05:30 05:48 11:14 WBC Hgb Hct MCV MCH RDW Plt Count Lymph % (Auto) Lymph # (Auto) Seg Neutrophils % Seg Neutrophils # ABG pH POC ABG pCO2 POC ABG pO2 ABG Hemoglobin ABG Oxyhemoglobin ABG Sodium ABG Potassium ABG Glucose Sodium 136 L Potassium 3.5 L Chloride Carbon Dioxide BUN 48 H Creatinine 3.5 H Glucose 165 H POC Glucose 149 H Calcium 8.0 L Phosphorus 0.80 L* D Ammonia 22.0 L Total Protein Albumin Arterial Blood Glucose Arterial Blood Ionized Calcium Phenytoin Valproic Acid 01/17/21 01/17/21 01/17/21 11:43 17:34 18:46 WBC Hgb Hct MCV MCH RDW Plt Count Lymph % (Auto) Lymph # (Auto) Seg Neutrophils % Seg Neutrophils # ABG pH POC ABG pCO2 POC ABG pO2 ABG Hemoglobin ABG Oxyhemoglobin ABG Sodium ABG Potassium ABG Glucose Sodium Potassium Chloride Carbon Dioxide BUN Creatinine Glucose POC Glucose 160 H 209 H Calcium Phosphorus 2.20 L D Ammonia Total Protein Albumin Arterial Blood Glucose Arterial Blood Ionized Calcium Phenytoin Valproic Acid 01/17/21 01/17/21 01/18/21 19:00 23:19 03:28 WBC Hgb Hct MCV MCH RDW Plt Count Lymph % (Auto) Lymph # (Auto) Seg Neutrophils % Seg Neutrophils # ABG pH POC ABG pCO2 POC ABG pO2 190.2 H ABG Hemoglobin 11.9 L ABG Oxyhemoglobin 98.5 H ABG Sodium 130.9 L 131.0 L ABG Potassium 3.0 L 2.8 L ABG Glucose 241 H Sodium Potassium Chloride Carbon Dioxide BUN Creatinine Glucose POC Glucose 222 H Calcium Phosphorus Ammonia Total Protein Albumin Arterial Blood Glucose 241 H Arterial Blood Ionized Calcium 4.5 L Phenytoin Valproic Acid 01/18/21 01/18/21 01/18/21 04:16 06:20 10:20 WBC 14.1 H Hgb 11.2 L Hct 34.5 L MCV 83 L MCH 27 L RDW 20.8 H Plt Count 116 L Lymph % (Auto) Lymph # (Auto) Seg Neutrophils % Seg Neutrophils # ABG pH POC ABG pCO2 POC ABG pO2 ABG Hemoglobin ABG Oxyhemoglobin ABG Sodium ABG Potassium ABG Glucose Sodium 134 L Potassium 2.9 L* Chloride Carbon Dioxide 21 L BUN 60 H Creatinine 3.9 H Glucose POC Glucose 69 L Calcium Phosphorus 1.60 L D Ammonia Total Protein Albumin Arterial Blood Glucose Arterial Blood Ionized Calcium Phenytoin Valproic Acid 01/18/21 01/18/21 01/18/21 11:29 15:30 17:23 WBC Hgb Hct MCV MCH RDW Plt Count Lymph % (Auto) Lymph # (Auto) Seg Neutrophils % Seg Neutrophils # ABG pH POC ABG pCO2 POC ABG pO2 ABG Hemoglobin ABG Oxyhemoglobin ABG Sodium ABG Potassium ABG Glucose Sodium Potassium 3.3 L Chloride Carbon Dioxide BUN 42 H Creatinine 3.1 H Glucose 190 H POC Glucose 128 H 167 H Calcium 8.2 L Phosphorus 1.10 L D Ammonia Total Protein Albumin Arterial Blood Glucose Arterial Blood Ionized Calcium Phenytoin Valproic Acid 01/18/21 01/19/21 01/19/21 23:43 03:43 04:38 WBC Hgb Hct MCV MCH RDW Plt Count Lymph % (Auto) Lymph # (Auto) Seg Neutrophils % Seg Neutrophils # ABG pH 7.536 H POC ABG pCO2 27.0 L POC ABG pO2 165.8 H ABG Hemoglobin 10.7 L ABG Oxyhemoglobin 98.4 H ABG Sodium 131.3 L ABG Potassium ABG Glucose 152 H Sodium Potassium Chloride Carbon Dioxide BUN 55 H Creatinine 3.8 H Glucose 143 H POC Glucose 232 H Calcium Phosphorus 1.10 L Ammonia Total Protein Albumin Arterial Blood Glucose 152 H Arterial Blood Ionized Calcium Phenytoin Valproic Acid 01/19/21 05:12 WBC Hgb Hct MCV MCH RDW Plt Count Lymph % (Auto) Lymph # (Auto) Seg Neutrophils % Seg Neutrophils # ABG pH POC ABG pCO2 POC ABG pO2 ABG Hemoglobin ABG Oxyhemoglobin ABG Sodium ABG Potassium ABG Glucose Sodium Potassium Chloride Carbon Dioxide BUN Creatinine Glucose POC Glucose 135 H Calcium Phosphorus Ammonia Total Protein Albumin Arterial Blood Glucose Arterial Blood Ionized Calcium Phenytoin Valproic Acid
[2021-01-19] MEDS ORDERED: PHOS-NAK POWDER PACKET PO SCH (10:02)
--- NOTE | 2021-01-19 11:39 | Progress Note ---
<ISAIAHRODRÍGUEZ H. - Last Filed: 01/19/21 13:33> Assessment and Plan Assessment and plan: 80-year-old male with ESRD on HD, HTN, CAD, cerebral arthrosclerosis, vascular dementia who is admitted for new onset seizures. On 01/15 patient was transferred to ICU and intubated for possible status epilepticus. Neuro: New onset seizure disorder; possibly be in status epilepticus. Neurology consulted, appreciate recommendations CT of the brain noted, no signs of acute infarct MRI showing subacute to chronic subdural hematoma. 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 -Celebrex, Keppra, Depacon -01/14 EEG is significantly abnormal, diffuse background slowing in 3-4 Hz, patient had a vertex waves and sleep spindles noted bilaterally and centrally, 2 events of facial twitching with associated generalized tonic/clonic activities, lasting for at least 15 seconds each followed by suppressions, findings suggestive of encephalopathic process and/or higher tendency of possible focal seizures with generalization, possibility of source of blood loss cannot be totally excluded -01/15 EEG shows burst suppression pattern, intermittent sharp electric activity is noted throughout the recording, pronounced in the right frontal region, findings consistent with generalized seizure activity -01/16 EEG shows findings of generalized burst suppression as well as recurrent triphasic waves sinuses Rocephin for the process, and her drug effect, reports after stage cannot be excluded, possibility of toxic metabolic and/or hepatic and/or renal insufficiency cannot be excluded -01/17 EEG shows significant improvement previous recording, no epileptiform discharges noted, no runs of sharp looking activity is appreciated, intermittent triphasic waves noted mostly bifrontally and improvement in the background activity to 4-6 Hz noted throughout the recording, concerning suggestive of mild encephalopathic process and/or postictal state of possibility of flexor metabolic etiology cannot be totally excluded -01/18 EEG interpreted as mildly encephalopathic process with background 4-5 Hz noted throughout the recording with triphasic waves noted occasionally and vertex waves centrally more pronounced on the left side, no epileptiform discharge appreciated, suggestive of possible toxic metabolic and/or drug effect, possibility of postictal state cannot be totally excluded -Aspiration and seizures precautions Vascular dementia No behavioral disturbances Currently stable at this time Chronic subdural hematoma -Noted on MRI We will hold anticoagulation Cerebral atherosclerosis Hold antiplatelet therapy Cardio: History of hypertension secondary to renal disease Hydralazine as needed, hold metoprolol in setting of hypotension and resume as needed -S/p Levophed for hypotension Resp: Acute hypoxic respiratory failure -Intubated 01/15 for possible status epilepticus however patient was extubated on 01/17 and had to be reintubated on 01/17 for hypoxia -Wean mechanical ventilation as tolerated -VAP bundle -SPO2 monitoring per protocol -Serial ABGs and CXR FEN/GI: End-stage renal disease on HD Nephrology consulted Dialysis per renal team -Renally dose medications -Avoid nephrotoxic medications Hypophosphatemia -01/16 phosphate 1.1, 01/17 phosphate 0.8, 01/17 phos 2.2, 01/18 Phos 1.6, 01/19 phos 1.1 -Repleate with PhosNak -Trend Phos levels Severe dysphagia; Failure to thrive Chronic PEG tube -On tube feedings, Accu-Cheks every 6, SSI ID: [id number] in sputum -Cefepime -01/13 nares: MRSA positive -01/15 tracheal aspirate with gram-negative rods, mod growth : NAD -Anuric Heme: Anemia of chronic disease -Admit H/H 12. -Transfuse for hemoglobin less than 7 Thrombocytopenia -01/16 platelets 132 -Trend CBC -Hold anticouagualtion in setting of chronic SDH Skin: NAD -Turning per protocol -Per RN, healed sacral ulcer CODE STATUS: Full DVT prophylaxis: SCDs to BLE while in bed Lines: PIV Disposition: ICU for now The high probability of a clinically significant, sudden or life threatening deterioration of the [neuro, resp] system(s) required my full and direct attention, intervention and personal management. The aggregate critical care time was [35] minutes. This time is in addition to time spent performing reported procedures but includes the following: [x] Data Review and interpretation [x] Patient assessment and monitoring of vital signs [x] Documentation [x] Medication orders and management History Interval history: This 80-year-old male who is a resident of a custodial facility with ESRD on HD Thursday, , Thursday), hyperlipidemia, hypertension, vascular dementia, cerebral sclerosis presents to the emergency department after suspected cardiac arrest and initiation of ACLS at the dialysis center 01/12/2021 however upon EMS arrival patient was noted to be actively seizing and chest compressions were discontinued. Upon arrival to the emergency department patient was found to have new onset seizure disorder, acidosis. Nephrology was consulted for ESRD. Patient was initially admitted to the telemetry floor under observation. 01/13/2021. Seizure precautions. Continue IV Keppra and await neurology evaluation. Check EEG and MRI. CT scan negative. Continue hemodialysis per nephrology recommendations. 01/14/2021. Patient is somnolent and lethargic. However, no new seizure activity noted. CT brain is remarkable for white matter changes. Continue seizure precautions. Follow-up EEG and MRI brain. Neurology decrease Keppra to 250 mg twice daily. Ativan as needed for seizure. Continue hemodialysis per nephrology recommendations. 01/15/2021: There is no overt seizure activity, however patient continues to be nonverbal. Patient seen after dialysis. Patient is not responsive to any verbal cues. Patient is moaning. 01/16: Patient had EEG today and was noted to be having seizure activity on 2 mg of Versed and this was uptitrated to 3 mg Versed. Neurology has been informed. Hypokalemia and hypophosphatemia addressed. Likely HD tomorrow. 01/17: Repeat EEG completed today. Severe hypophosphatemia noted today, repleted with IV phos. HD scheduled today. 01/18: Repeat EEG today per neuro, HD per nephro. Hypokalemia today to 2.9 and hypophosphatemia to 1.6, patient received 40 M EQ of KCl, PhosNak for 1 day. Will obtain pm labs. Pateint is less responsive today but Neuro does not think he had another seizure. Thrombocytopenia, will trend CBC. Patient became hypoxic towards the end of dialysis and failed BiPAP therapy and had to be intubated for hypoxia. 01/19: UDS shows presumptive benzo, HD today per nephro, Phos remains low but still has not completed supplementation. Nephro suggests flumazenil. Per CCM if not more wake by angeline, we will try and possibly obtain CT head. Hospitalist Physical - Constitutional Vitals: Temp Pulse Resp BP Pulse Ox 98.8 F 114 H 25 H 112/65 100 01/19/21 07:35 01/19/21 09:00 01/19/21 08:47 01/19/21 09:00 01/19/21 08:47 General appearance: Present: no acute distress, other (on MV) - EENT Eyes: Present: PERRL - Neck Neck: Absent: masses or JVD, cervical LAD - Respiratory Respiratory effort: normal Respiratory: bilateral: diminished - Cardiovascular Rhythm: regular Heart Sounds: Present: S1 & S2. Absent: systolic murmur, diastolic murmur - Extremities Extremities: no ischemia, pulses intact, pulses symmetrical, No edema, normal temperature, normal color Peripheral Pulses: within normal limits - Abdominal General gastrointestinal: soft, non-tender, non-distended, hypoactive bowel sounds - Integumentary Integumentary: Present: warm, dry - Psychiatric Psychiatric: other - Neurologic Neurologic: other (opens eyes to sternal rub, moves bilateral toes) - Allied Health Allied health notes reviewed: nursing, RT, social work Results - Labs CBC & Chem 7: 01/18/21 10:20 01/19/21 04:38 Labs: Laboratory Last Values WBC 14.1 K/mm3 (4.5-11.0) H 01/18/21 10:20 RBC 4.15 M/mm3 (3.65-5.03) 01/18/21 10:20 Hgb 11.2 gm/dl (11.8-15.2) L 01/18/21 10:20 Hct 34.5 % (35.5-45.6) L 01/18/21 10:20 MCV 83 fl (84-94) L 01/18/21 10:20 MCH 27 pg (28-32) L 01/18/21 10:20 MCHC 33 % (32-34) 01/18/21 10:20 RDW 20.8 % (13.2-15.2) H 01/18/21 10:20 Plt Count 116 K/mm3 (140-440) L 01/18/21 10:20 Lymph % (Auto) 6.3 % (13.4-35.0) L 01/15/21 05:22 Cecil % (Auto) 5.4 % (0.0-7.3) 01/15/21 05:22 Eos % (Auto) 0.0 % (0.0-4.3) 01/15/21 05:22 Baso % (Auto) 0.1 % (0.0-1.8) 01/15/21 05:22 Lymph # (Auto) 0.7 K/mm3 (1.2-5.4) L 01/15/21 05:22 Cecil # (Auto) 0.6 K/mm3 (0.0-0.8) 01/15/21 05:22 Eos # (Auto) 0.0 K/mm3 (0.0-0.4) 01/15/21 05:22 Baso # (Auto) 0.0 K/mm3 (0.0-0.1) 01/15/21 05:22 Seg Neutrophils % 88.2 % (40.0-70.0) H 01/15/21 05:22 Seg Neutrophils # 9.8 K/mm3 (1.8-7.7) H 01/15/21 05:22 ABG pH 7.536 (7.320-7.450) H 01/19/21 03:43 POC ABG pCO2 27.0 mmHg (32.0-48.0) L 01/19/21 03:43 POC ABG pO2 165.8 mmHg (83-108) H 01/19/21 03:43 POC ABG HCO3 22.4 01/19/21 03:43 ABG O2 Saturation 99.6 (0-100) 01/19/21 03:43 POC ABG Base Excess 0.6 01/19/21 03:43 ABG Hemoglobin 10.7 (12.0-17.5) L 01/19/21 03:43 ABG Oxyhemoglobin 98.4 (94-98) H 01/19/21 03:43 ABG Methemoglobin 0.3 (0.0-1.5) 01/19/21 03:43 ABG Sodium 131.3 mmol/L (136.0-145.0) L 01/19/21 03:43 ABG Potassium 3.6 mmol/L (3.40-4.50) 01/19/21 03:43 ABG Chloride 104.0 mmol/L (98-107) 01/19/21 03:43 ABG Glucose 152 mg/dL (65-95) H 01/19/21 03:43 Carboxyhemoglobin 0.9 (0.5-1.5) 01/19/21 03:43 FiO2 % 65.0 01/19/21 03:43 Sodium 137 mmol/L (137-145) 01/19/21 04:38 Potassium 4.2 mmol/L (3.6-5.0) D 01/19/21 04:38 Chloride 98.6 mmol/L (98-107) 01/19/21 04:38 Carbon Dioxide 23 mmol/L (22-30) 01/19/21 04:38 Anion Gap 20 mmol/L 01/19/21 04:38 BUN 55 mg/dL (9-20) H 01/19/21 04:38 Creatinine 3.8 mg/dL (0.8-1.3) H 01/19/21 04:38 Estimated GFR 19 ml/min 01/19/21 04:38 BUN/Creatinine Ratio 14 % 01/19/21 04:38 Glucose 143 mg/dL (75-100) H 01/19/21 04:38 POC Glucose 135 mg/dL (70-105) H 01/19/21 05:12 Calcium 8.8 mg/dL (8.4-10.2) 01/19/21 04:38 Phosphorus 1.10 mg/dL (2.5-4.5) L 01/19/21 04:38 Magnesium 1.90 mg/dL (1.7-2.3) 01/19/21 04:38 Total Bilirubin 0.30 mg/dL (0.1-1.2) 01/13/21 05:19 Direct Bilirubin < 0.2 mg/dL (0-0.2) 01/12/21 14:36 Indirect Bilirubin 0.1 mg/dL 01/12/21 14:36 AST 27 units/L (5-40) 01/13/21 05:19 ALT 10 units/L (7-56) 01/13/21 05:19 Alkaline Phosphatase 72 units/L (35-129) 01/13/21 05:19 Ammonia 22.0 umol/L (25-60) L 01/17/21 11:14 Total Protein 5.8 g/dL (6.3-8.2) L 01/13/21 05:19 Albumin 3.3 g/dL (3.9-5) L 01/13/21 05:19 Albumin/Globulin Ratio 1.3 % 01/13/21 05:19 Arterial Blood Glucose 152 mg/dL (65-95) H 01/19/21 03:43 Arterial Blood Ionized Calcium 4.6 mg/dL (4.6-5.3) 01/19/21 03:43 Nasal Screen MRSA (PCR) Positive (Negative) 01/13/21 Unknown Urine Opiates Screen Negative 01/18/21 14:25 Urine Methadone Screen Negative 01/18/21 14:25 Ur Barbiturates Screen Negative 01/18/21 14:25 Phenytoin 6.5 ug/mL (10.0-20.0) L 01/16/21 09:15 Valproic Acid 45.9 ug/mL (50-100) L 01/15/21 08:56 Ur Phencyclidine Scrn Negative 01/18/21 14:25 Ur Amphetamines Screen Negative 01/18/21 14:25 U Benzodiazepines Scrn Presumptive positive 01/18/21 14:25 Urine Cocaine Screen Negative 01/18/21 14:25 U Marijuana (THC) Screen Negative 01/18/21 14:25 Drugs of Abuse Note Disclamer 01/18/21 14:25 Coronavirus (PCR) Negative (Negative) 01/15/21 08:00 Hepatitis A IgM Ab Non-reactive (NonReactive) 01/15/21 09:15 Hep Bs Antigen Non-reactive (Negative) 01/15/21 09:15 Hep B Core IgM Ab Non-reactive (NonReactive) 01/15/21 09:15 Hepatitis C Antibody Non-reactive (NonReactive) 01/15/21 09:15 Brewer/IV: Voiding Method Incontinent Active Medications - Current Medications Current Medications: Generic Name Dose Route Start Last Admin Trade Name Freq PRN Reason Stop Dose Admin Acetaminophen 650 mg 01/12/21 19:30 Acetaminophen 325 Mg Tab PO Q4H PRN Pain MILD(1-3)/Fever >100.5/ABEL Albuterol 2.5 mg 01/12/21 19:30 Albuterol 2.5 Mg/3 Ml Nebu IH Q4HRT PRN Shortness Of Breath Lipase/Protease/Amylase 1 each 01/13/21 10:11 Lipase 10,500/Protease 25,000/Amylase 43,750 (Units) Dr Silveira FEEDTUBE PRN PRN For Clogged Feeding Tube Atorvastatin Calcium 40 mg 01/12/21 22:00 01/18/21 22:51 Atorvastatin 40 Mg Tab PO 40 mg QHS NOLAN Administration Calcitriol 1 mcg 01/13/21 10:00 01/19/21 09:00 Calcitriol 0.5 Mcg Cap PO 1 mcg QDAY NOLAN Administration Docusate Sodium 100 mg 01/17/21 09:00 Docusate Sodium 100 Mg/10 Ml Oral Liqd PO BID PRN Constipation Doxazosin Mesylate 2 mg 01/18/21 10:00 01/19/21 09:00 Doxazosin 1 Mg Tab PO 2 mg QDAY NOLAN Administration Fentanyl 25 mcg 01/17/21 18:10 Fentanyl 100 Mcg/2 Ml Inj IV Q2HR PRN Pain , Severe (7-10) Hydrophilic Ointment 1 applic 01/15/21 17:14 Lip Therapy Vaseline TP Q2HR PRN Dry Lips Valproate Sodium 500 mg/ 105 mls @ 100 mls/hr 01/14/21 22:00 01/19/21 06:31 Sodium Chloride IV 100 mls/hr Q8H NOLAN Administration Sodium Chloride 100 mls @ 999 mls/hr 01/15/21 08:00 Nacl 0.9% IV DIONNA PRN Hypotension Fosphenytoin Sodium 100 mg.pe/ 102 mls @ 200 mls/hr 01/15/21 20:00 01/19/21 09:05 Sodium Chloride IV 200 mls/hr TID NOLAN Administration Norepinephrine 4 mg in 250 mls @ 7.5 mls/hr 01/15/21 19:00 01/16/21 09:15 Levophed Drip 4 Mg/Ns 250 Ml IV 0 mcg/min TITR NOLAN 0 mls/hr Titration Protocol 2 MCG/MIN Levetiracetam 250 mg/ Dextrose 52.5 mls @ 200 mls/hr 01/15/21 22:00 01/19/21 09:03 IV 200 mls/hr Q12HR NOLAN Administration Insulin Human Lispro 0 unit 01/16/21 00:00 01/19/21 06:31 Insulin Lispro 100 Unit/Ml SUB-Q Not Given Q6HR NOLAN Protocol Lansoprazole 30 mg 01/12/21 22:00 01/19/21 09:00 Lansoprazole 30 Mg Solutab FEEDTUBE 30 mg BID NOLAN Administration Linagliptin 5 mg 01/13/21 11:00 01/19/21 08:45 Linagliptin 5 Mg Tab PO 5 mg QDDIAB NOLAN Administration Multi-Ingred Cream/Lotion/Oil/Oint 1 applic 01/15/21 17:14 Mineral Oil/Petrolatum, White Ophth Oint 3.5 Gm OU Q4HR PRN Dry Eye(s) Ondansetron HCl 4 mg 01/12/21 19:30 Ondansetron 4 Mg/2 Ml Inj IV Q8H PRN Nausea And Vomiting Potassium Phos/Sodium Phos 3 each 01/19/21 10:02 Phos-Nak Powder Packet PO 01/19/21 13:59 Q8HR NOLAN Simple Syrup 15 ml 01/13/21 10:11 01/18/21 06:54 Simple Syrup 15 Ml FEEDTUBE 15 ml PRN PRN Administration Hypoglycemia Simple Syrup 30 ml 01/13/21 10:11 Simple Syrup 15 Ml FEEDTUBE PRN PRN Hypoglycemia Sodium Bicarbonate 325 mg 01/13/21 10:11 Sodium Bicarbonate 325 Mg Tab FEEDTUBE PRN PRN For Clogged Feeding Tube Sodium Chloride 10 ml 01/12/21 22:00 01/19/21 09:01 Sodium Chloride 0.9% 10 Ml Flush Syringe IV 10 ml BID NOLAN Administration Sodium Chloride 10 ml 01/12/21 19:30 Sodium Chloride 0.9% 10 Ml Flush Syringe IV PRN PRN LINE FLUSH Timolol Maleate 1 drops 01/17/21 10:00 01/19/21 09:00 Timolol 0.5% Ophth Soln 5 Ml OU 1 drops QDAY NOLAN Administration Nutrition/Malnutrition Assess - Dietary Evaluation Nutrition/Malnutrition Findings: Nutrition Notes Start: 01/13/21 10:03 Freq: Status: Active Protocol: Document 01/17/21 10:38 (Rec: 01/17/21 10:40 [id number]) Nutrition Notes Initial or Follow up Reassessment Current Diagnosis CKD (stage V CKD),Diabetes, Hypertension,Hyperlipidemia Other Pertinent Diagnosis on HD, dementia, new on set seizure disorder Current Diet Nepro 1.8 at 38 ml/hr Labs/Tests Na 136 K 3.5 Phos 0.8 Pertinent Medications sodium phosphate Height 5 ft 9 in Weight 56.1 kg Ulman Body Weight (kg) 72.72 BMI 18.2 Weight Status Underweight Subjective/Other Information Observed TF running at goal rate and pt tolerating. Percent of energy/protein needs met: 100%/100% Burn Absent Trauma Absent Difficulty In Swallowing,Chewing Current % PO Negligible Minimum of two criteria No #2 Nutrition Diagnosis Increased nutrient needs ( specify in comment below) Diagnosis Progress(for reassessment Continues documentation) #1 Nutrition Diagnosis Inadequate oral intake Diagnosis Progress(for reassessment Continues documentation) Is patient on ventilator? No Is Patient Ambulatory and/or Out of Bed No REE-([facility]-confined to bed) 1508.844 Calculation Used for Recommendations [facility] Additional Notes Protein: (>1.25g/kg) greater than 71g Fluid: 1ml/kcal or per MD Nutrition Intervention Nutrition Support: Nepro 1.8 at 38 ml/hr Flush 150 ml q4h Kcal 1,642 Protein (gm) 74 Fluid (mL) 611 Goal #1 Meet at least 75% of protein and energy needs via TF Goal #2 Wound healing Goal #3 Wt gain/maintenance Anticipated Discharge Needs: Nepro 1.8 at 38 ml/hr Flush 150 ml q4h Follow-Up By: 01/24/21 Additional Comments FU for stable TF <DUY HOYT - Last Filed: 01/20/21 11:39> Assessment and Plan Assessment and plan: Patient seen and examined, agree with assessment and plan as outlined by nurse practitioner as above, patient's family at the bedside, answered all questions. Continue intubation, neurology to decrease seizure medications at this time. Patient without any seizure activity. Hospitalist Physical - Constitutional Vitals: Temp Pulse Resp BP Pulse Ox 99.4 F 93 H 20 122/65 100 01/20/21 11:18 01/20/21 11:10 01/20/21 11:10 01/20/21 11:10 01/20/21 11:10 Results - Labs CBC & Chem 7: 01/18/21 10:20 01/19/21 04:38 Labs: Laboratory Last Values WBC 14.1 K/mm3 (4.5-11.0) H 01/18/21 10:20 RBC 4.15 M/mm3 (3.65-5.03) 01/18/21 10:20 Hgb 11.2 gm/dl (11.8-15.2) L 01/18/21 10:20 Hct 34.5 % (35.5-45.6) L 01/18/21 10:20 MCV 83 fl (84-94) L 01/18/21 10:20 MCH 27 pg (28-32) L 01/18/21 10:20 MCHC 33 % (32-34) 01/18/21 10:20 RDW 20.8 % (13.2-15.2) H 01/18/21 10:20 Plt Count 116 K/mm3 (140-440) L 01/18/21 10:20 Lymph % (Auto) 6.3 % (13.4-35.0) L 01/15/21 05:22 Cecil % (Auto) 5.4 % (0.0-7.3) 01/15/21 05:22 Eos % (Auto) 0.0 % (0.0-4.3) 01/15/21 05:22 Baso % (Auto) 0.1 % (0.0-1.8) 01/15/21 05:22 Lymph # (Auto) 0.7 K/mm3 (1.2-5.4) L 01/15/21 05:22 Cecil # (Auto) 0.6 K/mm3 (0.0-0.8) 01/15/21 05:22 Eos # (Auto) 0.0 K/mm3 (0.0-0.4) 01/15/21 05:22 Baso # (Auto) 0.0 K/mm3 (0.0-0.1) 01/15/21 05:22 Seg Neutrophils % 88.2 % (40.0-70.0) H 01/15/21 05:22 Seg Neutrophils # 9.8 K/mm3 (1.8-7.7) H 01/15/21 05:22 ABG pH 7.513 (7.320-7.450) H 01/20/21 04:00 POC ABG pCO2 33.2 mmHg (32.0-48.0) 01/20/21 04:00 POC ABG pO2 97.9 mmHg (83-108) 01/20/21 04:00 POC ABG HCO3 26.1 01/20/21 04:00 ABG O2 Saturation 98.1 (0-100) 01/20/21 04:00 POC ABG Base Excess 3.2 01/20/21 04:00 ABG Hemoglobin 9.9 (12.0-17.5) L 01/20/21 04:00 ABG Oxyhemoglobin 96.4 (94-98) 01/20/21 04:00 ABG Methemoglobin 0.3 (0.0-1.5) 01/20/21 04:00 ABG Sodium 129.4 mmol/L (136.0-145.0) L 01/20/21 04:00 ABG Potassium 3.6 mmol/L (3.40-4.50) 01/20/21 04:00 ABG Chloride 100.0 mmol/L (98-107) 01/20/21 04:00 ABG Glucose 196 mg/dL (65-95) H 01/20/21 04:00 Carboxyhemoglobin 1.4 (0.5-1.5) 01/20/21 04:00 FiO2 % 45.0 01/20/21 04:00 Sodium 137 mmol/L (137-145) 01/19/21 04:38 Potassium 4.2 mmol/L (3.6-5.0) D 01/19/21 04:38 Chloride 98.6 mmol/L (98-107) 01/19/21 04:38 Carbon Dioxide 23 mmol/L (22-30) 01/19/21 04:38 Anion Gap 20 mmol/L 01/19/21 04:38 BUN 55 mg/dL (9-20) H 01/19/21 04:38 Creatinine 3.8 mg/dL (0.8-1.3) H 01/19/21 04:38 Estimated GFR 19 ml/min 01/19/21 04:38 BUN/Creatinine Ratio 14 % 01/19/21 04:38 Glucose 143 mg/dL (75-100) H 01/19/21 04:38 POC Glucose 149 mg/dL (70-105) H 01/20/21 11:15 Calcium 8.8 mg/dL (8.4-10.2) 01/19/21 04:38 Phosphorus 1.10 mg/dL (2.5-4.5) L 01/19/21 15:16 Magnesium 1.90 mg/dL (1.7-2.3) 01/19/21 04:38 Total Bilirubin 0.30 mg/dL (0.1-1.2) 01/13/21 05:19 Direct Bilirubin < 0.2 mg/dL (0-0.2) 01/12/21 14:36 Indirect Bilirubin 0.1 mg/dL 01/12/21 14:36 AST 27 units/L (5-40) 01/13/21 05:19 ALT 10 units/L (7-56) 01/13/21 05:19 Alkaline Phosphatase 72 units/L (35-129) 01/13/21 05:19 Ammonia 22.0 umol/L (25-60) L 01/17/21 11:14 Total Protein 5.8 g/dL (6.3-8.2) L 01/13/21 05:19 Albumin 3.3 g/dL (3.9-5) L 01/13/21 05:19 Albumin/Globulin Ratio 1.3 % 01/13/21 05:19 Arterial Blood Glucose 196 mg/dL (65-95) H 01/20/21 04:00 Arterial Blood Ionized Calcium 4.6 mg/dL (4.6-5.3) 01/20/21 04:00 Nasal Screen MRSA (PCR) Positive (Negative) 01/13/21 Unknown Urine Opiates Screen Negative 01/18/21 14:25 Urine Methadone Screen Negative 01/18/21 14:25 Ur Barbiturates Screen Negative 01/18/21 14:25 Phenytoin 6.5 ug/mL (10.0-20.0) L 01/16/21 09:15 Valproic Acid 45.9 ug/mL (50-100) L 01/15/21 08:56 Ur Phencyclidine Scrn Negative 01/18/21 14:25 Ur Amphetamines Screen Negative 01/18/21 14:25 U Benzodiazepines Scrn Presumptive positive 01/18/21 14:25 Urine Cocaine Screen Negative 01/18/21 14:25 U Marijuana (THC) Screen Negative 01/18/21 14:25 Drugs of Abuse Note Disclamer 01/18/21 14:25 Coronavirus (PCR) Negative (Negative) 01/15/21 08:00 Hepatitis A IgM Ab Non-reactive (NonReactive) 01/15/21 09:15 Hep Bs Antigen Non-reactive (Negative) 01/15/21 09:15 Hep B Core IgM Ab Non-reactive (NonReactive) 01/15/21 09:15 Hepatitis C Antibody Non-reactive (NonReactive) 01/15/21 09:15 Microbiology: Microbiology 01/15/21 16:51 Tracheal Aspirate Sputum Culture - Preliminary Gram Negative Tucker Brewer/IV: Voiding Method Incontinent Active Medications - Current Medications Current Medications: Generic Name Dose Route Start Last Admin Trade Name Freq PRN Reason Stop Dose Admin Acetaminophen 650 mg 01/12/21 19:30 Acetaminophen 325 Mg Tab PO Q4H PRN Pain MILD(1-3)/Fever >100.5/ABEL Albuterol 2.5 mg 01/12/21 19:30 Albuterol 2.5 Mg/3 Ml Nebu IH Q4HRT PRN Shortness Of Breath Lipase/Protease/Amylase 1 each 01/13/21 10:11 Lipase 10,500/Protease 25,000/Amylase 43,750 (Units) Dr Cap FEEDTUBE PRN PRN For Clogged Feeding Tube Atorvastatin Calcium 40 mg 01/12/21 22:00 01/19/21 21:24 Atorvastatin 40 Mg Tab PO 40 mg QHS NOLAN Administration Calcitriol 1 mcg 01/13/21 10:00 01/20/21 09:43 Calcitriol 0.5 Mcg Cap PO 1 mcg QDAY NOLAN Administration Docusate Sodium 100 mg 01/17/21 09:00 Docusate Sodium 100 Mg/10 Ml Oral Liqd PO BID PRN Constipation Doxazosin Mesylate 2 mg 01/18/21 10:00 01/20/21 09:44 Doxazosin 1 Mg Tab PO 2 mg QDAY NOLAN Administration Fentanyl 25 mcg 01/17/21 18:10 Fentanyl 100 Mcg/2 Ml Inj IV Q2HR PRN Pain , Severe (7-10) Hydrophilic Ointment 1 applic 01/15/21 17:14 Lip Therapy Vaseline TP Q2HR PRN Dry Lips Valproate Sodium 500 mg/ 105 mls @ 100 mls/hr 01/14/21 22:00 01/20/21 06:27 Sodium Chloride IV 100 mls/hr Q8H NOLAN Administration Sodium Chloride 100 mls @ 999 mls/hr 01/15/21 08:00 Nacl 0.9% IV DIONNA PRN Hypotension Norepinephrine 4 mg in 250 mls @ 7.5 mls/hr 01/15/21 19:00 01/16/21 09:15 Levophed Drip 4 Mg/Ns 250 Ml IV 0 mcg/min TITR NOLAN 0 mls/hr Titration Protocol 2 MCG/MIN Levetiracetam 250 mg/ Dextrose 52.5 mls @ 200 mls/hr 01/15/21 22:00 01/20/21 09:43 IV 200 mls/hr Q12HR NOLAN Administration Fosphenytoin Sodium 100 mg.pe/ 102 mls @ 200 mls/hr 01/19/21 18:00 01/19/21 17:52 Sodium Chloride IV 200 mls/hr QPM NOLAN Administration Cefepime HCl 1 gm in 100 mls @ 200 mls/hr 01/20/21 18:00 Cefepime/Ns 1 Gm/100 Ml IV Q24H NOLAN Insulin Human Lispro 0 unit 01/16/21 00:00 01/20/21 11:19 Insulin Lispro 100 Unit/Ml SUB-Q Not Given Q6HR [facility] Protocol Lansoprazole 30 mg 01/12/21 22:00 01/20/21 09:44 Lansoprazole 30 Mg Solutab FEEDTUBE 30 mg BID NOLAN Administration Linagliptin 5 mg 01/13/21 11:00 01/20/21 08:32 Linagliptin 5 Mg Tab PO 5 mg QDDIAB NOLAN Administration Multi-Ingred Cream/Lotion/Oil/Oint 1 applic 01/15/21 17:14 Mineral Oil/Petrolatum, White Ophth Oint 3.5 Gm OU Q4HR PRN Dry Eye(s) Ondansetron HCl 4 mg 01/12/21 19:30 Ondansetron 4 Mg/2 Ml Inj IV Q8H PRN Nausea And Vomiting Simple Syrup 15 ml 01/13/21 10:11 01/18/21 06:54 Simple Syrup 15 Ml FEEDTUBE 15 ml PRN PRN Administration Hypoglycemia Simple Syrup 30 ml 01/13/21 10:11 Simple Syrup 15 Ml FEEDTUBE PRN PRN Hypoglycemia Sodium Bicarbonate 325 mg 01/13/21 10:11 Sodium Bicarbonate 325 Mg Tab FEEDTUBE PRN PRN For Clogged Feeding Tube Sodium Chloride 10 ml 01/12/21 22:00 01/20/21 09:46 Sodium Chloride 0.9% 10 Ml Flush Syringe IV 10 ml BID NOLAN Administration Sodium Chloride 10 ml 01/12/21 19:30 Sodium Chloride 0.9% 10 Ml Flush Syringe IV PRN PRN LINE FLUSH Timolol Maleate 1 drops 01/17/21 10:00 01/20/21 09:46 Timolol 0.5% Ophth Soln 5 Ml OU 1 drops QDAY NOLAN Administration Nutrition/Malnutrition Assess - Dietary Evaluation Nutrition/Malnutrition Findings: Nutrition Notes Start: 01/13/21 10:03 Freq: Status: Active Protocol: Document 01/17/21 10:38 (Rec: 01/17/21 10:40 [id number]) Nutrition Notes Initial or Follow up Reassessment Current Diagnosis CKD (stage V CKD),Diabetes, Hypertension,Hyperlipidemia Other Pertinent Diagnosis on HD, dementia, new on set seizure disorder Current Diet Nepro 1.8 at 38 ml/hr Labs/Tests Na 136 K 3.5 Phos 0.8 Pertinent Medications sodium phosphate Height 5 ft 9 in Weight 56.1 kg [place] Body Weight (kg) 72.72 BMI 18.2 Weight Status Underweight Subjective/Other Information Observed TF running at goal rate and pt tolerating. Percent of energy/protein needs met: 100%/100% Burn Absent Trauma Absent Difficulty In Swallowing,Chewing Current % PO Negligible Minimum of two criteria No #2 Nutrition Diagnosis Increased nutrient needs ( specify in comment below) Diagnosis Progress(for reassessment Continues documentation) #1 Nutrition Diagnosis Inadequate oral intake Diagnosis Progress(for reassessment Continues documentation) Is patient on ventilator? No Is Patient Ambulatory and/or Out of Bed No REE-([facility]-confined to bed) 1508.844 Calculation Used for Recommendations [facility] Additional Notes Protein: (>1.25g/kg) greater than 71g Fluid: 1ml/kcal or per MD Nutrition Intervention Nutrition Support: Nepro 1.8 at 38 ml/hr Flush 150 ml q4h Kcal 1,642 Protein (gm) 74 Fluid (mL) 611 Goal #1 Meet at least 75% of protein and energy needs via TF Goal #2 Wound healing Goal #3 Wt gain/maintenance Anticipated Discharge Needs: Nepro 1.8 at 38 ml/hr Flush 150 ml q4h Follow-Up By: 01/24/21 Additional Comments FU for stable TF
--- NOTE | 2021-01-19 11:59 | Progress Note ---
Assessment and Plan Assessment and Plan # New onset of possible witnessed seizure during dialysis yesterday -CT brain is remarkable for white matter changes -Keppra 500 mg IV -MRI brain is notedright lateral subdural hematoma , and associated blood in cervical junction -EEG repeat today valproic acid , plus fosphenytoin -Seizure precaution -Cut down keppra to 250 mg bid -Ativan prn for seizure -Seizure precaution -R/O underlying infection. -Repeat EEG today still show recurrent generalized spike and slow with predominant right frontal and with burst supression battern -Attempt to extubate yesterday end up in reintubation -EEG showed diffuse slowing with no seizure activity -will cut down fosphentoin -maintain keppra and valproic -correct underlying infection and electrolytes abn. # Right lateral subdural hematoma -noted on MRI -Remote -Small # Advanced dementia -Ct white matter changes -truncal rigidity -? base line # End stage renal disease 23/2.6 -- today 48/3.5 for dialysis today -Nephrology team consulted in ED, -dialysis as per renal team, -avoid nephrotoxic agents. # DVT prophylaxis -SCD to bilateral lower extremities while in bed, prophylactic anticoagulation # Advance care planning -Disease education conducted, care plan discussed, diagnoses discussed, prognosis discussed, patient is full code. Patient family knowledge understanding agree with care plan, +30 minutes. plan 1-maintain keppra 250 bid 2- maintain valproic and check valproic acid #45 3-In ICU intubated off jasper 4-Cut down fosphentoin to 100 mg qhs X 24 hours then D/C will follow Over all prognosis is quarded findings are discussed in details with daughter Subjective Date of service: 01/19/21 Principal diagnosis: witnessed seizure hx of ESRD ,hyponatremia Interval history: Intubated off sedation , not responding to stimuli , no movment no witnessed seizure repeat EEG yesterday showed diffuse slowing with no grey activity is noted D/W family yesterday will nasrin of fenytoin over all prognosis is quarded Objective - Vital Sign Vital Signs - 12hr 01/19/21 01/19/21 01/19/21 00:00 00:10 00:12 Temperature Pulse Rate 112 H 117 H 116 H Pulse Rate [ 114 H From Monitor] Respiratory 25 H 25 H Rate Blood Pressure 113/59 114/64 114/64 O2 Sat by Pulse 99 99 100 Oximetry 01/19/21 01/19/21 01/19/21 00:20 00:30 00:40 Temperature Pulse Rate 111 H 114 H 113 H Pulse Rate [ From Monitor] Respiratory 19 18 18 Rate Blood Pressure 119/66 123/66 111/63 O2 Sat by Pulse Oximetry 01/19/21 01/19/21 01/19/21 00:50 01:00 01:10 Temperature Pulse Rate 113 H 114 H 108 H Pulse Rate [ From Monitor] Respiratory 25 H 17 21 Rate Blood Pressure 115/65 122/69 116/63 O2 Sat by Pulse 99 99 Oximetry 01/19/21 01/19/21 01/19/21 01:20 01:30 01:40 Temperature Pulse Rate 108 H 107 H 106 H Pulse Rate [ From Monitor] Respiratory 22 22 20 Rate Blood Pressure 99/57 103/59 106/56 O2 Sat by Pulse Oximetry 01/19/21 01/19/21 01/19/21 01:50 02:00 02:10 Temperature Pulse Rate 108 H 108 H 106 H Pulse Rate [ From Monitor] Respiratory 21 20 20 Rate Blood Pressure 112/64 127/67 127/70 O2 Sat by Pulse 100 99 Oximetry 01/19/21 01/19/21 01/19/21 02:20 02:30 02:40 Temperature Pulse Rate 108 H 109 H 107 H Pulse Rate [ From Monitor] Respiratory 17 19 22 Rate Blood Pressure 124/70 127/72 121/66 O2 Sat by Pulse 100 100 Oximetry 01/19/21 01/19/21 01/19/21 02:50 03:00 03:10 Temperature 99.3 F Pulse Rate 109 H 108 H 107 H Pulse Rate [ From Monitor] Respiratory 18 17 23 Rate Blood Pressure 113/68 115/64 120/65 O2 Sat by Pulse 100 100 100 Oximetry 01/19/21 01/19/21 01/19/21 03:20 03:30 03:40 Temperature Pulse Rate 106 H 105 H 107 H Pulse Rate [ From Monitor] Respiratory 22 24 23 Rate Blood Pressure 115/61 116/63 116/66 O2 Sat by Pulse 100 100 100 Oximetry 01/19/21 01/19/21 01/19/21 03:50 03:59 04:00 Temperature Pulse Rate 107 H 107 H 108 H Pulse Rate [ 108 H From Monitor] Respiratory 22 19 Rate Blood Pressure 116/56 118/67 O2 Sat by Pulse 100 100 100 Oximetry 01/19/21 01/19/21 01/19/21 04:10 04:20 04:30 Temperature Pulse Rate 96 H 112 H 105 H Pulse Rate [ From Monitor] Respiratory 24 18 17 Rate Blood Pressure 119/62 114/65 112/69 O2 Sat by Pulse 100 100 100 Oximetry 01/19/21 01/19/21 01/19/21 04:40 04:50 05:00 Temperature Pulse Rate 95 H 109 H 109 H Pulse Rate [ From Monitor] Respiratory 22 16 24 Rate Blood Pressure 121/58 122/67 130/68 O2 Sat by Pulse 100 100 100 Oximetry 01/19/21 01/19/21 01/19/21 05:10 05:20 05:30 Temperature Pulse Rate 103 H 110 H 103 H Pulse Rate [ From Monitor] Respiratory 21 24 22 Rate Blood Pressure 119/65 121/72 116/59 O2 Sat by Pulse 100 100 100 Oximetry 01/19/21 01/19/21 01/19/21 05:40 05:50 06:00 Temperature Pulse Rate 110 H 113 H 114 H Pulse Rate [ From Monitor] Respiratory 22 22 22 Rate Blood Pressure 118/62 116/65 120/66 O2 Sat by Pulse 100 100 Oximetry 01/19/21 01/19/21 01/19/21 06:10 06:20 06:30 Temperature Pulse Rate 111 H 100 H 116 H Pulse Rate [ From Monitor] Respiratory 24 15 22 Rate Blood Pressure 120/66 124/69 124/69 O2 Sat by Pulse 99 100 Oximetry 01/19/21 01/19/21 01/19/21 06:40 06:50 07:00 Temperature Pulse Rate 114 H 115 H 115 H Pulse Rate [ From Monitor] Respiratory 24 21 25 H Rate Blood Pressure 131/76 141/73 137/71 O2 Sat by Pulse 99 100 100 Oximetry 01/19/21 01/19/21 01/19/21 07:10 07:18 07:20 Temperature Pulse Rate 115 H 114 H 114 H Pulse Rate [ From Monitor] Respiratory 23 24 Rate Blood Pressure 128/72 118/65 O2 Sat by Pulse Oximetry 01/19/21 01/19/21 01/19/21 07:30 07:35 07:40 Temperature 98.8 F Pulse Rate 113 H 112 H Pulse Rate [ From Monitor] Respiratory 18 22 Rate Blood Pressure 108/63 112/60 O2 Sat by Pulse 100 Oximetry 01/19/21 01/19/21 01/19/21 07:50 07:59 08:00 Temperature Pulse Rate 112 H 112 H 112 H Pulse Rate [ From Monitor] Respiratory 18 21 Rate Blood Pressure 107/60 107/60 107/60 O2 Sat by Pulse 100 Oximetry 01/19/21 01/19/21 01/19/21 08:10 08:20 08:30 Temperature Pulse Rate 112 H 112 H 114 H Pulse Rate [ From Monitor] Respiratory 22 20 19 Rate Blood Pressure 106/63 104/58 106/63 O2 Sat by Pulse Oximetry 01/19/21 01/19/21 01/19/21 08:40 08:47 08:50 Temperature Pulse Rate 113 H 113 H Pulse Rate [ 113 H From Monitor] Respiratory 25 H 25 H 26 H Rate Blood Pressure 115/64 116/65 O2 Sat by Pulse 100 100 Oximetry 01/19/21 01/19/21 01/19/21 09:00 09:10 09:20 Temperature Pulse Rate 114 H 113 H 113 H Pulse Rate [ From Monitor] Respiratory 20 18 25 H Rate Blood Pressure 112/65 115/63 110/67 O2 Sat by Pulse 100 Oximetry 01/19/21 01/19/21 01/19/21 09:30 09:40 09:50 Temperature Pulse Rate 113 H 112 H 112 H Pulse Rate [ From Monitor] Respiratory 20 15 23 Rate Blood Pressure 123/69 117/65 116/63 O2 Sat by Pulse 100 100 Oximetry 01/19/21 01/19/21 01/19/21 10:00 10:10 10:20 Temperature Pulse Rate 112 H 109 H 107 H Pulse Rate [ From Monitor] Respiratory 23 19 21 Rate Blood Pressure 117/71 115/67 120/68 O2 Sat by Pulse 97 97 Oximetry 01/19/21 01/19/21 01/19/21 10:30 10:40 10:50 Temperature Pulse Rate 106 H 105 H 104 H Pulse Rate [ From Monitor] Respiratory 17 23 20 Rate Blood Pressure 121/68 124/58 95/56 O2 Sat by Pulse 97 97 97 Oximetry 01/19/21 01/19/21 01/19/21 11:00 11:05 11:10 Temperature Pulse Rate 105 H 105 H 106 H Pulse Rate [ From Monitor] Respiratory 22 18 Rate Blood Pressure 110/61 112/76 O2 Sat by Pulse 97 99 Oximetry 01/19/21 01/19/21 01/19/21 11:20 11:30 11:40 Temperature Pulse Rate 103 H 105 H 104 H Pulse Rate [ From Monitor] Respiratory 15 15 18 Rate Blood Pressure 112/76 114/54 116/58 O2 Sat by Pulse 100 99 Oximetry - General Apperance Constitutional: comfortable - EENT EENT: PERRL, mucous membranes moist - Respiratory Respiratory: chest non-tender, lungs clear, rhonchi - Cardiovascular Cardiovascular: regular rate, normal S1, normal S2 Extremities: no peripheral edema bilat, no clubbing, cyanosis - Gastrointestinal Gastrointestinal: normoactive bowel sounds - Integumentary Integumentary: normal - Neurologic Cranial nerve examination: PERRL, EOMI, VFF, intact (pupil reactive constriced and EOMI ) - Laboratory Findings CBC and BMP: 01/18/21 10:20 01/19/21 04:38 Abnormal Lab Findings: Abnormal Labs 01/12/21 01/12/21 01/12/21 14:12 14:36 14:36 WBC 11.2 H Hgb Hct MCV MCH 27 L RDW 21.0 H Plt Count Lymph % (Auto) Lymph # (Auto) Seg Neutrophils % 79.6 H Seg Neutrophils # 8.9 H ABG pH POC ABG pCO2 POC ABG pO2 ABG Hemoglobin ABG Oxyhemoglobin ABG Sodium ABG Potassium ABG Glucose Sodium 136 L Potassium Chloride 95.8 L Carbon Dioxide 19 L BUN Creatinine 2.0 H Glucose 163 H POC Glucose 166 H Calcium 8.2 L Phosphorus Ammonia Total Protein 5.4 L Albumin 3.4 L Arterial Blood Glucose Arterial Blood Ionized Calcium Phenytoin Valproic Acid 01/13/21 01/13/21 01/13/21 05:19 12:14 16:16 WBC Hgb Hct MCV MCH RDW Plt Count Lymph % (Auto) Lymph # (Auto) Seg Neutrophils % Seg Neutrophils # ABG pH POC ABG pCO2 POC ABG pO2 ABG Hemoglobin ABG Oxyhemoglobin ABG Sodium ABG Potassium ABG Glucose Sodium 134 L Potassium Chloride 95.5 L Carbon Dioxide BUN 23 H Creatinine 2.6 H Glucose 168 H POC Glucose 142 H 163 H Calcium Phosphorus Ammonia Total Protein 5.8 L Albumin 3.3 L Arterial Blood Glucose Arterial Blood Ionized Calcium Phenytoin Valproic Acid 01/13/21 01/13/21 01/14/21 20:22 23:57 06:31 WBC Hgb Hct MCV MCH RDW Plt Count Lymph % (Auto) Lymph # (Auto) Seg Neutrophils % Seg Neutrophils # ABG pH POC ABG pCO2 POC ABG pO2 ABG Hemoglobin ABG Oxyhemoglobin ABG Sodium ABG Potassium ABG Glucose Sodium Potassium Chloride Carbon Dioxide BUN Creatinine Glucose POC Glucose 209 H 189 H 236 H Calcium Phosphorus Ammonia Total Protein Albumin Arterial Blood Glucose Arterial Blood Ionized Calcium Phenytoin Valproic Acid 01/14/21 01/14/21 01/14/21 08:57 08:57 12:22 WBC 12.0 H Hgb 11.3 L Hct 34.5 L MCV MCH RDW 20.6 H Plt Count Lymph % (Auto) 6.4 L Lymph # (Auto) 0.8 L Seg Neutrophils % 87.4 H Seg Neutrophils # 10.5 H ABG pH POC ABG pCO2 POC ABG pO2 ABG Hemoglobin ABG Oxyhemoglobin ABG Sodium ABG Potassium ABG Glucose Sodium 131 L Potassium Chloride 93.7 L Carbon Dioxide BUN 37 H Creatinine 3.7 H Glucose 261 H POC Glucose 280 H Calcium Phosphorus Ammonia Total Protein Albumin Arterial Blood Glucose Arterial Blood Ionized Calcium Phenytoin Valproic Acid 01/14/21 01/14/21 01/15/21 16:15 22:28 04:43 WBC Hgb Hct MCV MCH RDW Plt Count Lymph % (Auto) Lymph # (Auto) Seg Neutrophils % Seg Neutrophils # ABG pH POC ABG pCO2 POC ABG pO2 ABG Hemoglobin ABG Oxyhemoglobin ABG Sodium ABG Potassium ABG Glucose Sodium Potassium Chloride Carbon Dioxide BUN Creatinine Glucose POC Glucose 289 H 252 H 243 H Calcium Phosphorus Ammonia Total Protein Albumin Arterial Blood Glucose Arterial Blood Ionized Calcium Phenytoin Valproic Acid 01/15/21 01/15/21 01/15/21 05:22 05:22 08:56 WBC 11.1 H Hgb 11.0 L Hct 33.3 L MCV 83 L MCH 27 L RDW 20.6 H Plt Count Lymph % (Auto) 6.3 L Lymph # (Auto) 0.7 L Seg Neutrophils % 88.2 H Seg Neutrophils # 9.8 H ABG pH POC ABG pCO2 POC ABG pO2 ABG Hemoglobin ABG Oxyhemoglobin ABG Sodium ABG Potassium ABG Glucose Sodium 130 L Potassium Chloride 92.0 L Carbon Dioxide BUN 49 H Creatinine 4.2 H Glucose 241 H POC Glucose Calcium Phosphorus Ammonia Total Protein Albumin Arterial Blood Glucose Arterial Blood Ionized Calcium Phenytoin Valproic Acid 45.9 L 01/15/21 01/15/21 01/15/21 16:42 18:14 23:10 WBC Hgb Hct MCV MCH RDW Plt Count Lymph % (Auto) Lymph # (Auto) Seg Neutrophils % Seg Neutrophils # ABG pH 7.463 H POC ABG pCO2 POC ABG pO2 377.4 H ABG Hemoglobin 11.6 L ABG Oxyhemoglobin 98.6 H ABG Sodium 130.1 L ABG Potassium ABG Glucose 254 H Sodium Potassium Chloride Carbon Dioxide BUN Creatinine Glucose POC Glucose 218 H 279 H Calcium Phosphorus Ammonia Total Protein Albumin Arterial Blood Glucose 254 H Arterial Blood Ionized Calcium 4.5 L Phenytoin Valproic Acid 01/16/21 01/16/21 01/16/21 03:10 05:11 05:17 WBC Hgb 10.4 L Hct 31.8 L MCV MCH 27 L RDW 20.3 H Plt Count 132 L Lymph % (Auto) Lymph # (Auto) Seg Neutrophils % Seg Neutrophils # ABG pH POC ABG pCO2 POC ABG pO2 174.4 H ABG Hemoglobin 10.3 L ABG Oxyhemoglobin 98.6 H ABG Sodium 129.9 L ABG Potassium 3.2 L ABG Glucose 202 H Sodium Potassium Chloride Carbon Dioxide BUN Creatinine Glucose POC Glucose 193 H Calcium Phosphorus Ammonia Total Protein Albumin Arterial Blood Glucose 202 H Arterial Blood Ionized Calcium Phenytoin Valproic Acid 01/16/21 01/16/21 01/16/21 05:17 09:15 11:33 WBC Hgb Hct MCV MCH RDW Plt Count Lymph % (Auto) Lymph # (Auto) Seg Neutrophils % Seg Neutrophils # ABG pH POC ABG pCO2 POC ABG pO2 ABG Hemoglobin ABG Oxyhemoglobin ABG Sodium ABG Potassium ABG Glucose Sodium Potassium 3.4 L Chloride Carbon Dioxide BUN 36 H Creatinine 3.2 H Glucose 216 H POC Glucose 174 H Calcium 8.3 L Phosphorus 1.10 L Ammonia Total Protein Albumin Arterial Blood Glucose Arterial Blood Ionized Calcium Phenytoin 6.5 L Valproic Acid 01/16/21 01/17/21 01/17/21 18:13 00:10 04:00 WBC Hgb Hct MCV MCH RDW Plt Count Lymph % (Auto) Lymph # (Auto) Seg Neutrophils % Seg Neutrophils # ABG pH POC ABG pCO2 POC ABG pO2 ABG Hemoglobin 10.1 L ABG Oxyhemoglobin ABG Sodium 130.1 L ABG Potassium 3.3 L ABG Glucose 153 H Sodium Potassium Chloride Carbon Dioxide BUN Creatinine Glucose POC Glucose 162 H 150 H Calcium Phosphorus Ammonia Total Protein Albumin Arterial Blood Glucose 153 H Arterial Blood Ionized Calcium Phenytoin Valproic Acid 01/17/21 01/17/21 01/17/21 05:30 05:48 11:14 WBC Hgb Hct MCV MCH RDW Plt Count Lymph % (Auto) Lymph # (Auto) Seg Neutrophils % Seg Neutrophils # ABG pH POC ABG pCO2 POC ABG pO2 ABG Hemoglobin ABG Oxyhemoglobin ABG Sodium ABG Potassium ABG Glucose Sodium 136 L Potassium 3.5 L Chloride Carbon Dioxide BUN 48 H Creatinine 3.5 H Glucose 165 H POC Glucose 149 H Calcium 8.0 L Phosphorus 0.80 L* D Ammonia 22.0 L Total Protein Albumin Arterial Blood Glucose Arterial Blood Ionized Calcium Phenytoin Valproic Acid 01/17/21 01/17/21 01/17/21 11:43 17:34 18:46 WBC Hgb Hct MCV MCH RDW Plt Count Lymph % (Auto) Lymph # (Auto) Seg Neutrophils % Seg Neutrophils # ABG pH POC ABG pCO2 POC ABG pO2 ABG Hemoglobin ABG Oxyhemoglobin ABG Sodium ABG Potassium ABG Glucose Sodium Potassium Chloride Carbon Dioxide BUN Creatinine Glucose POC Glucose 160 H 209 H Calcium Phosphorus 2.20 L D Ammonia Total Protein Albumin Arterial Blood Glucose Arterial Blood Ionized Calcium Phenytoin Valproic Acid 01/17/21 01/17/21 01/18/21 19:00 23:19 03:28 WBC Hgb Hct MCV MCH RDW Plt Count Lymph % (Auto) Lymph # (Auto) Seg Neutrophils % Seg Neutrophils # ABG pH POC ABG pCO2 POC ABG pO2 190.2 H ABG Hemoglobin 11.9 L ABG Oxyhemoglobin 98.5 H ABG Sodium 130.9 L 131.0 L ABG Potassium 3.0 L 2.8 L ABG Glucose 241 H Sodium Potassium Chloride Carbon Dioxide BUN Creatinine Glucose POC Glucose 222 H Calcium Phosphorus Ammonia Total Protein Albumin Arterial Blood Glucose 241 H Arterial Blood Ionized Calcium 4.5 L Phenytoin Valproic Acid 01/18/21 01/18/21 01/18/21 04:16 06:20 10:20 WBC 14.1 H Hgb 11.2 L Hct 34.5 L MCV 83 L MCH 27 L RDW 20.8 H Plt Count 116 L Lymph % (Auto) Lymph # (Auto) Seg Neutrophils % Seg Neutrophils # ABG pH POC ABG pCO2 POC ABG pO2 ABG Hemoglobin ABG Oxyhemoglobin ABG Sodium ABG Potassium ABG Glucose Sodium 134 L Potassium 2.9 L* Chloride Carbon Dioxide 21 L BUN 60 H Creatinine 3.9 H Glucose POC Glucose 69 L Calcium Phosphorus 1.60 L D Ammonia Total Protein Albumin Arterial Blood Glucose Arterial Blood Ionized Calcium Phenytoin Valproic Acid 01/18/21 01/18/21 01/18/21 11:29 15:30 17:23 WBC Hgb Hct MCV MCH RDW Plt Count Lymph % (Auto) Lymph # (Auto) Seg Neutrophils % Seg Neutrophils # ABG pH POC ABG pCO2 POC ABG pO2 ABG Hemoglobin ABG Oxyhemoglobin ABG Sodium ABG Potassium ABG Glucose Sodium Potassium 3.3 L Chloride Carbon Dioxide BUN 42 H Creatinine 3.1 H Glucose 190 H POC Glucose 128 H 167 H Calcium 8.2 L Phosphorus 1.10 L D Ammonia Total Protein Albumin Arterial Blood Glucose Arterial Blood Ionized Calcium Phenytoin Valproic Acid 01/18/21 01/19/21 01/19/21 23:43 03:43 04:38 WBC Hgb Hct MCV MCH RDW Plt Count Lymph % (Auto) Lymph # (Auto) Seg Neutrophils % Seg Neutrophils # ABG pH 7.536 H POC ABG pCO2 27.0 L POC ABG pO2 165.8 H ABG Hemoglobin 10.7 L ABG Oxyhemoglobin 98.4 H ABG Sodium 131.3 L ABG Potassium ABG Glucose 152 H Sodium Potassium Chloride Carbon Dioxide BUN 55 H Creatinine 3.8 H Glucose 143 H POC Glucose 232 H Calcium Phosphorus 1.10 L Ammonia Total Protein Albumin Arterial Blood Glucose 152 H Arterial Blood Ionized Calcium Phenytoin Valproic Acid 01/19/21 01/19/21 05:12 11:36 WBC Hgb Hct MCV MCH RDW Plt Count Lymph % (Auto) Lymph # (Auto) Seg Neutrophils % Seg Neutrophils # ABG pH POC ABG pCO2 POC ABG pO2 ABG Hemoglobin ABG Oxyhemoglobin ABG Sodium ABG Potassium ABG Glucose Sodium Potassium Chloride Carbon Dioxide BUN Creatinine Glucose POC Glucose 135 H 201 H Calcium Phosphorus Ammonia Total Protein Albumin Arterial Blood Glucose Arterial Blood Ionized Calcium Phenytoin Valproic Acid
[2021-01-19] MEDS: EPOETIN ALFA-EPBX 10,000 UNIT/1 ML VIAL SUB-Q PRN (17:37)
[2021-01-19] MEDS ORDERED: SODIUM CHLORIDE IV SCH (18:00)
[2021-01-19] MEDS ORDERED: CEFEPIME 0.5 GM in SODIUM CHLORIDE 0.9% 100 ML IV SCH (18:00)
[2021-01-19] MEDS ORDERED: FOSPHENYTOIN IV SCH (18:00)
[2021-01-19] MEDS ORDERED: [UNRECOGNIZED DRUG - OTHER] IV SCH (18:00)
[2021-01-20] MEDS: INSULIN LISPRO 100 UNIT/ML SUB-Q SCH ×6 (00:39→17:24)
[2021-01-20] MEDS: VALPROATE SODIUM 500 MG in SODIUM CHLORIDE 0.9% 100 ML IV SCH ×3 (06:27→21:39)
[2021-01-20] MEDS: LINAGLIPTIN 5 MG TAB PO SCH (08:32)
[2021-01-20] MEDS: levETIRAcetam 250 MG in DEXTROSE 5% IN WATER (50 ML) 50 ML IV SCH ×2 (09:43→13:30)
[2021-01-20] MEDS: CALCITRIOL 0.5 MCG CAP PO SCH (09:43)
[2021-01-20] MEDS: DOXAZOSIN 1 MG TAB PO SCH (09:44)
[2021-01-20] MEDS: LANSOPRAZOLE 30 MG SOLUTAB FEEDTUBE SCH ×2 (09:44→21:39)
[2021-01-20] MEDS: TIMOLOL 0.5% OPHTH SOLN 5 ML OU SCH (09:46)
--- NOTE | 2021-01-20 09:58 | Progress Note ---
Assessment and Plan 1.ESRD: Patient is on maintenance hemodialysis three times a week, TTS schedule. Last outpatient HD 01/12/2021. Meds dosage based on GFR. Hemodialysis: 01/15, 01/16, 01/17(UF), 01/18. 2. FEN: Volume overload, UF with HD. Hyponatremia, improved, monitor. Replete Phos as needed. Monitor lytes and volume status. 3. Acute resp failure: Currently intubated, on vent. Extubated 01/17. Re-intubated 01/17. Wean as tolerated. 4. Shock: Off pressors. Monitor. 5. New onset of possible witnessed seizure during dialysis: CT brain remarkable for white matter changes. MRI brain: small SDH, chronic changes. Valproate and Keppra. Seizure precaution. Followed by Neuro. 6. Advanced dementia: CT white matter changes. 7. Failure to thrive: PEG tube. 8. Anemia, POA: Epogen with HD. 9. DM type 2. 10. Acute metabolic encephalopathy. Subjective: Patient was seen and examined at the bedside. Examination: General appearance: well-developed, appears stated age, no distress, intubated, on vent HEENT: ATNC, CELINA Neck: Trachea midline Respiratory: ctab Cardiology: regular, S1S2, no murmur Abdomen: soft, not tender, BS heard, Peg tube noted Integumentary: warm, dry, no obvious rash Neurologic: not responding Ext: no edema noted Hemodialysis catheter: R IJ tunnel catheter Subjective Date of service: 01/20/21 Principal diagnosis: witnessed seizure hx of ESRD ,hyponatremia Objective - Vital Signs Vital signs: Vital Signs - 12hr 01/19/21 01/19/21 01/19/21 22:00 22:10 22:20 Temperature Pulse Rate 101 H 106 H 108 H Pulse Rate [ From Monitor] Respiratory 22 24 13 Rate Blood Pressure 112/47 112/47 110/50 O2 Sat by Pulse 100 100 100 Oximetry 01/19/21 01/19/21 01/19/21 22:30 22:49 22:50 Temperature Pulse Rate 101 H 109 H 104 H Pulse Rate [ From Monitor] Respiratory 22 20 25 H Rate Blood Pressure 116/51 O2 Sat by Pulse 100 100 100 Oximetry 01/19/21 01/19/21 01/19/21 22:52 23:00 23:10 Temperature Pulse Rate 100 H 100 H 99 H Pulse Rate [ From Monitor] Respiratory 17 20 20 Rate Blood Pressure 100/57 100/57 101/56 O2 Sat by Pulse 100 100 100 Oximetry 01/19/21 01/19/21 01/19/21 23:20 23:30 23:40 Temperature Pulse Rate 100 H 105 H 105 H Pulse Rate [ From Monitor] Respiratory 23 25 H 20 Rate Blood Pressure 96/46 106/56 106/56 O2 Sat by Pulse 100 100 100 Oximetry 01/19/21 01/19/21 01/20/21 23:50 23:57 00:00 Temperature 100 F H Pulse Rate 106 H 105 H Pulse Rate [ 97 H From Monitor] Respiratory 20 21 Rate Blood Pressure 111/53 111/53 O2 Sat by Pulse 100 100 Oximetry 01/20/21 01/20/21 01/20/21 00:10 00:14 00:20 Temperature Pulse Rate 101 H 106 H 107 H Pulse Rate [ From Monitor] Respiratory 24 14 Rate Blood Pressure 101/50 109/48 109/48 O2 Sat by Pulse 100 100 100 Oximetry 01/20/21 01/20/21 01/20/21 00:30 00:40 00:50 Temperature Pulse Rate 107 H 103 H 101 H Pulse Rate [ From Monitor] Respiratory 20 20 25 H Rate Blood Pressure 119/53 119/53 111/45 O2 Sat by Pulse 100 100 100 Oximetry 01/20/21 01/20/21 01/20/21 01:00 01:10 01:20 Temperature Pulse Rate 103 H 97 H 104 H Pulse Rate [ From Monitor] Respiratory 22 20 22 Rate Blood Pressure 119/41 119/41 99/42 O2 Sat by Pulse 100 100 100 Oximetry 01/20/21 01/20/21 01/20/21 01:30 01:40 01:50 Temperature Pulse Rate 103 H 105 H 109 H Pulse Rate [ From Monitor] Respiratory 22 22 22 Rate Blood Pressure 97/44 97/44 104/42 O2 Sat by Pulse 100 100 100 Oximetry 01/20/21 01/20/21 01/20/21 02:00 02:10 02:20 Temperature Pulse Rate 105 H 104 H 109 H Pulse Rate [ From Monitor] Respiratory 22 21 25 H Rate Blood Pressure 94/52 94/52 104/48 O2 Sat by Pulse 100 100 100 Oximetry 01/20/21 01/20/21 01/20/21 02:30 02:40 02:50 Temperature Pulse Rate 106 H 102 H 115 H Pulse Rate [ From Monitor] Respiratory 24 22 18 Rate Blood Pressure 104/48 98/53 106/50 O2 Sat by Pulse 100 100 100 Oximetry 01/20/21 01/20/21 01/20/21 03:00 03:10 03:20 Temperature Pulse Rate 107 H 93 H 108 H Pulse Rate [ From Monitor] Respiratory 21 23 21 Rate Blood Pressure 106/50 92/44 97/54 O2 Sat by Pulse 100 100 100 Oximetry 01/20/21 01/20/21 01/20/21 03:27 03:30 03:40 Temperature 98.4 F Pulse Rate 106 H 100 H Pulse Rate [ From Monitor] Respiratory 24 24 Rate Blood Pressure 97/54 100/45 O2 Sat by Pulse 100 100 Oximetry 01/20/21 01/20/21 01/20/21 03:50 04:00 04:03 Temperature Pulse Rate 104 H 104 H 108 H Pulse Rate [ 104 H From Monitor] Respiratory 22 21 Rate Blood Pressure 99/42 99/42 87/53 O2 Sat by Pulse 100 100 100 Oximetry 01/20/21 01/20/21 01/20/21 04:10 04:20 04:30 Temperature Pulse Rate 96 H 97 H 108 H Pulse Rate [ From Monitor] Respiratory 19 17 16 Rate Blood Pressure 87/53 93/43 93/43 O2 Sat by Pulse 100 100 99 Oximetry 01/20/21 01/20/21 01/20/21 04:40 04:50 05:00 Temperature Pulse Rate 102 H 109 H 102 H Pulse Rate [ From Monitor] Respiratory 23 23 24 Rate Blood Pressure 126/56 99/48 107/51 O2 Sat by Pulse 100 100 100 Oximetry 01/20/21 01/20/21 01/20/21 05:10 05:20 05:30 Temperature Pulse Rate 104 H 102 H 102 H Pulse Rate [ From Monitor] Respiratory 20 21 21 Rate Blood Pressure 107/51 99/41 98/55 O2 Sat by Pulse 100 100 100 Oximetry 01/20/21 01/20/21 01/20/21 05:40 05:50 06:00 Temperature Pulse Rate 95 H 99 H 102 H Pulse Rate [ From Monitor] Respiratory 18 20 22 Rate Blood Pressure 98/55 120/51 108/51 O2 Sat by Pulse 100 100 100 Oximetry 07/01/20/21 01/20/21 06:10 06:20 06:30 Temperature Pulse Rate 105 H 104 H 92 H Pulse Rate [ From Monitor] Respiratory 21 15 19 Rate Blood Pressure 108/51 111/61 111/61 O2 Sat by Pulse 100 100 100 Oximetry 01/20/21 01/20/21 01/20/21 06:40 06:50 07:00 Temperature Pulse Rate 102 H 96 H 91 H Pulse Rate [ From Monitor] Respiratory 22 23 20 Rate Blood Pressure 95/55 91/44 96/44 O2 Sat by Pulse 100 100 100 Oximetry 01/20/21 01/20/21 01/20/21 07:10 07:11 07:20 Temperature Pulse Rate 101 H 95 H 100 H Pulse Rate [ 95 H From Monitor] Respiratory 22 22 22 Rate Blood Pressure 96/44 91/44 O2 Sat by Pulse 100 100 100 Oximetry 01/20/21 01/20/21 01/20/21 07:30 07:40 07:50 Temperature Pulse Rate 104 H 102 H 105 H Pulse Rate [ From Monitor] Respiratory 17 15 23 Rate Blood Pressure 93/60 93/60 93/60 O2 Sat by Pulse 100 100 100 Oximetry 01/20/21 01/20/21 01/20/21 08:00 08:10 08:20 Temperature Pulse Rate 103 H 101 H 106 H Pulse Rate [ From Monitor] Respiratory 13 27 H 23 Rate Blood Pressure 93/60 112/65 105/69 O2 Sat by Pulse 100 100 100 Oximetry 01/20/21 01/20/21 01/20/21 08:30 08:40 08:50 Temperature Pulse Rate 106 H 103 H 106 H Pulse Rate [ From Monitor] Respiratory 20 24 23 Rate Blood Pressure 123/66 123/66 112/51 O2 Sat by Pulse 100 100 100 Oximetry 01/20/21 01/20/21 01/20/21 09:00 09:10 09:20 Temperature Pulse Rate 105 H 103 H 105 H Pulse Rate [ From Monitor] Respiratory 23 19 15 Rate Blood Pressure 112/51 125/60 112/51 O2 Sat by Pulse 100 100 100 Oximetry 01/20/21 01/20/21 09:30 09:44 Temperature Pulse Rate 106 H 112 H Pulse Rate [ From Monitor] Respiratory 22 Rate Blood Pressure 112/51 118/60 O2 Sat by Pulse 100 Oximetry - Lab 01/21/21 06:39 01/21/21 06:39 Most recent lab results ABG pH 7.513 (7.320-7.450) H 01/20/21 04:00 ABG O2 Saturation 98.1 (0-100) 01/20/21 04:00 Calcium 8.8 mg/dL (8.4-10.2) 01/19/21 04:38 Phosphorus 1.10 mg/dL (2.5-4.5) L 01/19/21 15:16 Magnesium 1.90 mg/dL (1.7-2.3) 01/19/21 04:38 Medications & Allergies - Medications Allergies/Adverse Reactions: Allergies No Known Allergies Allergy (Verified 08/14/19 16:11) Home Medications: Home Medications Medication Instructions Recorded Confirmed Last Taken Type Alogliptin Benzoate [Alogliptin] 1 tab PO DAILY 10/02/20 10/25/20 Unknown History Sevelamer Carbonate [Renvela] 800 mg PO TIDWM 10/02/20 10/25/20 Unknown History buprenorphine hcl [Subutex] 2 mg SL QDAY PRN 10/02/20 10/25/20 Unknown History AtorvaSTATin [Lipitor] 40 mg PO QHS #30 10/11/20 10/25/20 Unknown Rx Docusate Sodium [Colace CAP] 100 mg PO BID PRN #60 cap 10/11/20 10/25/20 Unknown Rx Doxazosin [Cardura] 4 mg PO QDAY #30 10/11/20 10/25/20 Unknown Rx Febuxostat 40 mg PO QDAY #30 10/11/20 10/25/20 Unknown Rx Ketotifen Fumarate 1 drop OU QDAY #1 bottle 10/11/20 10/25/20 Unknown Rx Lansoprazole Solutab [Prevacid 30 mg FEEDTUBE BID #60 tab.rapdis 10/11/20 10/25/20 Unknown Rx Solutab] Megestrol Acetate 40 mg PO QDAY #30 10/11/20 10/25/20 Unknown Rx Metoprolol [Lopressor TAB] 12.5 mg PO BID #60 tablet 10/11/20 10/25/20 Unknown Rx calcitrioL [Rocaltrol] 1 mcg PO QDAY #30 cap 10/11/20 10/25/20 Unknown Rx timoloL maleate [Timolol Maleate 1 drop OP BID #1 bottle 10/11/20 10/25/20 Unknown Rx 0.25%] Active Medications: Generic Name Dose Route Start Last Admin Trade Name Freq PRN Reason Stop Dose Admin Acetaminophen 650 mg 01/12/21 19:30 Acetaminophen 325 Mg Tab PO Q4H PRN Pain MILD(1-3)/Fever >100.5/ABEL Albuterol 2.5 mg 01/12/21 19:30 Albuterol 2.5 Mg/3 Ml Nebu IH Q4HRT PRN Shortness Of Breath Lipase/Protease/Amylase 1 each 01/13/21 10:11 Lipase 10,500/Protease 25,000/Amylase 43,750 (Units) Dr Cap FEEDTUBE PRN PRN For Clogged Feeding Tube Atorvastatin Calcium 40 mg 01/12/21 22:00 01/19/21 21:24 Atorvastatin 40 Mg Tab PO 40 mg QHS NOLAN Administration Calcitriol 1 mcg 01/13/21 10:00 01/20/21 09:43 Calcitriol 0.5 Mcg Cap PO 1 mcg QDAY NOLAN Administration Docusate Sodium 100 mg 01/17/21 09:00 Docusate Sodium 100 Mg/10 Ml Oral Liqd PO BID PRN Constipation Doxazosin Mesylate 2 mg 01/18/21 10:00 01/20/21 09:44 Doxazosin 1 Mg Tab PO 2 mg QDAY NOLAN Administration Fentanyl 25 mcg 01/17/21 18:10 Fentanyl 100 Mcg/2 Ml Inj IV Q2HR PRN Pain , Severe (7-10) Hydrophilic Ointment 1 applic 01/15/21 17:14 Lip Therapy Vaseline TP Q2HR PRN Dry Lips Valproate Sodium 500 mg/ 105 mls @ 100 mls/hr 01/14/21 22:00 01/20/21 06:27 Sodium Chloride IV 100 mls/hr Q8H NOLAN Administration Sodium Chloride 100 mls @ 999 mls/hr 01/15/21 08:00 Nacl 0.9% IV DIONNA PRN Hypotension Norepinephrine 4 mg in 250 mls @ 7.5 mls/hr 01/15/21 19:00 01/16/21 09:15 Levophed Drip 4 Mg/Ns 250 Ml IV 0 mcg/min TITR NOLAN 0 mls/hr Titration Protocol 2 MCG/MIN Levetiracetam 250 mg/ Dextrose 52.5 mls @ 200 mls/hr 01/15/21 22:00 01/20/21 09:43 IV 200 mls/hr Q12HR NOLAN Administration Fosphenytoin Sodium 100 mg.pe/ 102 mls @ 200 mls/hr 01/19/21 18:00 01/19/21 17:52 Sodium Chloride IV 200 mls/hr QPM NOLAN Administration Cefepime HCl 0.5 gm/ Sodium 100 mls @ 200 mls/hr 01/19/21 18:00 01/19/21 17:52 Chloride IV 200 mls/hr Q24H NOLAN Administration Protocol Insulin Human Lispro 0 unit 01/16/21 00:00 01/20/21 07:09 Insulin Lispro 100 Unit/Ml SUB-Q 1 unit Q6HR NOLAN Administration Protocol Lansoprazole 30 mg 01/12/21 22:00 01/20/21 09:44 Lansoprazole 30 Mg Solutab FEEDTUBE 30 mg BID NOLAN Administration Linagliptin 5 mg 01/13/21 11:00 01/20/21 08:32 Linagliptin 5 Mg Tab PO 5 mg QDDIAB NOLAN Administration Multi-Ingred Cream/Lotion/Oil/Oint 1 applic 01/15/21 17:14 Mineral Oil/Petrolatum, White Ophth Oint 3.5 Gm OU Q4HR PRN Dry Eye(s) Ondansetron HCl 4 mg 01/12/21 19:30 Ondansetron 4 Mg/2 Ml Inj IV Q8H PRN Nausea And Vomiting Simple Syrup 15 ml 01/13/21 10:11 01/18/21 06:54 Simple Syrup 15 Ml FEEDTUBE 15 ml PRN PRN Administration Hypoglycemia Simple Syrup 30 ml 01/13/21 10:11 Simple Syrup 15 Ml FEEDTUBE PRN PRN Hypoglycemia Sodium Bicarbonate 325 mg 01/13/21 10:11 Sodium Bicarbonate 325 Mg Tab FEEDTUBE PRN PRN For Clogged Feeding Tube Sodium Chloride 10 ml 01/12/21 22:00 01/20/21 09:46 Sodium Chloride 0.9% 10 Ml Flush Syringe IV 10 ml BID NOLAN Administration Sodium Chloride 10 ml 01/12/21 19:30 Sodium Chloride 0.9% 10 Ml Flush Syringe IV PRN PRN LINE FLUSH Timolol Maleate 1 drops 01/17/21 10:00 01/20/21 09:46 Timolol 0.5% Ophth Soln 5 Ml OU 1 drops QDAY NOLAN Administration
--- NOTE | 2021-01-20 10:11 | Progress Note ---
Assessment and Plan 80 y/o with chronic seizure disorder, ESRD, HTN admitted with status epilepticus, requiring intubation for burst suppression. 01/20/21: FiO2 stable on 45%. Hold on repeat Imaging for now. Will hold on Flumazenil therapy given his prior history of seizure. May need more HD tomorrow. Spoke with Daughter and over the phone to update and they asked me to call them again tomorrow. Will tell them that visiting hours are present if they choose to come. Guarded prognosis. 01/19/21: Dropped FiO2 to 45%. Await neurology eval today but need to consider repeat imaging of head as I have not explanation as to why patient is not res ponsive. Patient does not make any urine so not able to send UDS. Had HD on yesterday so next one would likely be Thursday. Renal to address electrolytes. Very very guarded prognosis. 01/18/21: EEG not officially read, but prelim is negative for seizures, just diffuse slowing. ABG is stable, not hypercapnic. Will send UDS to see if benzos are still in system. spoke with renal who will do HD today and manage electrolytes. DId order mag level given low levels of potassium. Overall prognosis is very guarded to poor. If not more responsive tomorrow, may need to consider repeat imaging of head/brain. 01/17/21: Extubate. HD today per renal. If tolerates both, transfer back to floor on new anti-epileptic regimen 1. Continue Versed at 3mg IV per Hour for the next 24 hours. 2. Repeat EEG tomorrow off Versed. 3. Will attempt to get this before HD tomorrow. 4. HD per renal, tomorrow as patient got HD yesterday CCT 31 minutes. Subjective Date of service: 01/20/21 Principal diagnosis: witnessed seizure hx of ESRD ,hyponatremia Interval history: No acute events. Slightly more awake. But still not following commands. Had HD on yesterday. Tolerated well. Spoke with neuro and they will adjust meds more today. Objective Vital Signs - 12hr 01/19/21 01/19/21 01/19/21 22:20 22:30 22:49 Temperature Pulse Rate 108 H 101 H 109 H Pulse Rate [ From Monitor] Respiratory 13 22 20 Rate Blood Pressure 110/50 116/51 O2 Sat by Pulse 100 100 100 Oximetry 01/19/21 01/19/21 01/19/21 22:50 22:52 23:00 Temperature Pulse Rate 104 H 100 H 100 H Pulse Rate [ From Monitor] Respiratory 25 H 17 20 Rate Blood Pressure 100/57 100/57 O2 Sat by Pulse 100 100 100 Oximetry 01/19/21 01/19/21 01/19/21 23:10 23:20 23:30 Temperature Pulse Rate 99 H 100 H 105 H Pulse Rate [ From Monitor] Respiratory 20 23 25 H Rate Blood Pressure 101/56 96/46 106/56 O2 Sat by Pulse 100 100 100 Oximetry 01/19/21 01/19/21 01/19/21 23:40 23:50 23:57 Temperature 100 F H Pulse Rate 105 H 106 H Pulse Rate [ From Monitor] Respiratory 20 20 Rate Blood Pressure 106/56 111/53 O2 Sat by Pulse 100 100 Oximetry 01/20/21 01/20/21 01/20/21 00:00 00:10 00:14 Temperature Pulse Rate 105 H 101 H 106 H Pulse Rate [ 97 H From Monitor] Respiratory 21 24 Rate Blood Pressure 111/53 101/50 109/48 O2 Sat by Pulse 100 100 100 Oximetry 01/20/21 01/20/21 01/20/21 00:20 00:30 00:40 Temperature Pulse Rate 107 H 107 H 103 H Pulse Rate [ From Monitor] Respiratory 14 20 20 Rate Blood Pressure 109/48 119/53 119/53 O2 Sat by Pulse 100 100 100 Oximetry 01/20/21 01/20/21 01/20/21 00:50 01:00 01:10 Temperature Pulse Rate 101 H 103 H 97 H Pulse Rate [ From Monitor] Respiratory 25 H 22 20 Rate Blood Pressure 111/45 119/41 119/41 O2 Sat by Pulse 100 100 100 Oximetry 01/20/21 01/20/21 01/20/21 01:20 01:30 01:40 Temperature Pulse Rate 104 H 103 H 105 H Pulse Rate [ From Monitor] Respiratory 22 22 22 Rate Blood Pressure 99/42 97/44 97/44 O2 Sat by Pulse 100 100 100 Oximetry 01/20/21 01/20/21 01/20/21 01:50 02:00 02:10 Temperature Pulse Rate 109 H 105 H 104 H Pulse Rate [ From Monitor] Respiratory 22 22 21 Rate Blood Pressure 104/42 94/52 94/52 O2 Sat by Pulse 100 100 100 Oximetry 01/20/21 01/20/21 01/20/21 02:20 02:30 02:40 Temperature Pulse Rate 109 H 106 H 102 H Pulse Rate [ From Monitor] Respiratory 25 H 24 22 Rate Blood Pressure 104/48 104/48 98/53 O2 Sat by Pulse 100 100 100 Oximetry 01/20/21 01/20/21 01/20/21 02:50 03:00 03:10 Temperature Pulse Rate 115 H 107 H 93 H Pulse Rate [ From Monitor] Respiratory 18 21 23 Rate Blood Pressure 106/50 106/50 92/44 O2 Sat by Pulse 100 100 100 Oximetry 01/20/21 01/20/21 01/20/21 03:20 03:27 03:30 Temperature 98.4 F Pulse Rate 108 H 106 H Pulse Rate [ From Monitor] Respiratory 21 24 Rate Blood Pressure 97/54 97/54 O2 Sat by Pulse 100 100 Oximetry 01/20/21 01/20/21 01/20/21 03:40 03:50 04:00 Temperature Pulse Rate 100 H 104 H 104 H Pulse Rate [ 104 H From Monitor] Respiratory 24 22 21 Rate Blood Pressure 100/45 99/42 99/42 O2 Sat by Pulse 100 100 100 Oximetry 01/20/21 01/20/21 01/20/21 04:03 04:10 04:20 Temperature Pulse Rate 108 H 96 H 97 H Pulse Rate [ From Monitor] Respiratory 19 17 Rate Blood Pressure 87/53 87/53 93/43 O2 Sat by Pulse 100 100 100 Oximetry 01/20/21 01/20/21 01/20/21 04:30 04:40 04:50 Temperature Pulse Rate 108 H 102 H 109 H Pulse Rate [ From Monitor] Respiratory 16 23 23 Rate Blood Pressure 93/43 126/56 99/48 O2 Sat by Pulse 99 100 100 Oximetry 01/20/21 01/20/21 01/20/21 05:00 05:10 05:20 Temperature Pulse Rate 102 H 104 H 102 H Pulse Rate [ From Monitor] Respiratory 24 20 21 Rate Blood Pressure 107/51 107/51 99/41 O2 Sat by Pulse 100 100 100 Oximetry 01/20/21 01/20/21 01/20/21 05:30 05:40 05:50 Temperature Pulse Rate 102 H 95 H 99 H Pulse Rate [ From Monitor] Respiratory 21 18 20 Rate Blood Pressure 98/55 98/55 120/51 O2 Sat by Pulse 100 100 100 Oximetry 01/20/21 01/20/21 01/20/21 06:00 06:10 06:20 Temperature Pulse Rate 102 H 105 H 104 H Pulse Rate [ From Monitor] Respiratory 22 21 15 Rate Blood Pressure 108/51 108/51 111/61 O2 Sat by Pulse 100 100 100 Oximetry 01/20/21 01/20/21 01/20/21 06:30 06:40 06:50 Temperature Pulse Rate 92 H 102 H 96 H Pulse Rate [ From Monitor] Respiratory 19 22 23 Rate Blood Pressure 111/61 95/55 91/44 O2 Sat by Pulse 100 100 100 Oximetry 01/20/21 01/20/21 01/20/21 07:00 07:10 07:11 Temperature Pulse Rate 91 H 101 H 95 H Pulse Rate [ 95 H From Monitor] Respiratory 20 22 22 Rate Blood Pressure 96/44 96/44 O2 Sat by Pulse 100 100 100 Oximetry 01/20/21 01/20/21 01/20/21 07:20 07:30 07:40 Temperature Pulse Rate 100 H 104 H 102 H Pulse Rate [ From Monitor] Respiratory 22 17 15 Rate Blood Pressure 91/44 93/60 93/60 O2 Sat by Pulse 100 100 100 Oximetry 01/20/21 01/20/21 01/20/21 07:50 08:00 08:10 Temperature Pulse Rate 105 H 103 H 101 H Pulse Rate [ From Monitor] Respiratory 23 13 27 H Rate Blood Pressure 93/60 93/60 112/65 O2 Sat by Pulse 100 100 100 Oximetry 01/20/21 01/20/21 01/20/21 08:20 08:30 08:40 Temperature Pulse Rate 106 H 106 H 103 H Pulse Rate [ From Monitor] Respiratory 23 20 24 Rate Blood Pressure 105/69 123/66 123/66 O2 Sat by Pulse 100 100 100 Oximetry 01/20/21 01/20/21 01/20/21 08:50 09:00 09:10 Temperature Pulse Rate 106 H 105 H 103 H Pulse Rate [ From Monitor] Respiratory 23 23 19 Rate Blood Pressure 112/51 112/51 125/60 O2 Sat by Pulse 100 100 100 Oximetry 01/20/21 01/20/21 01/20/21 09:20 09:30 09:44 Temperature Pulse Rate 105 H 106 H 112 H Pulse Rate [ From Monitor] Respiratory 15 22 Rate Blood Pressure 112/51 112/51 118/60 O2 Sat by Pulse 100 100 Oximetry Constitutional: no acute distress, comatose (secondary to meds for seizure) ENT: other (orally intubated and sedated) Neck: supple Effort: normal Ascultation: Bilateral: clear Cardiovascular: regular rate and rhythm Gastrointestinal: normoactive bowel sounds Integumentary: normal Extremities: no edema, pulses normal CBC and BMP: 01/18/21 10:20 01/19/21 04:38 ABG, PT/INR, D-dimer: ABG ABG pH 7.513 (7.320-7.450) H 01/20/21 04:00 POC ABG pCO2 33.2 mmHg (32.0-48.0) 01/20/21 04:00 POC ABG pO2 97.9 mmHg (83-108) 01/20/21 04:00 POC ABG HCO3 26.1 01/20/21 04:00 ABG O2 Saturation 98.1 (0-100) 01/20/21 04:00 Abnormal lab findings: Abnormal Labs 01/12/21 01/12/21 01/12/21 14:12 14:36 14:36 WBC 11.2 H Hgb Hct MCV MCH 27 L RDW 21.0 H Plt Count Lymph % (Auto) Lymph # (Auto) Seg Neutrophils % 79.6 H Seg Neutrophils # 8.9 H ABG pH POC ABG pCO2 POC ABG pO2 ABG Hemoglobin ABG Oxyhemoglobin ABG Sodium ABG Potassium ABG Glucose Sodium 136 L Potassium Chloride 95.8 L Carbon Dioxide 19 L BUN Creatinine 2.0 H Glucose 163 H POC Glucose 166 H Calcium 8.2 L Phosphorus Ammonia Total Protein 5.4 L Albumin 3.4 L Arterial Blood Glucose Arterial Blood Ionized Calcium Phenytoin Valproic Acid 01/13/21 01/13/21 01/13/21 05:19 12:14 16:16 WBC Hgb Hct MCV MCH RDW Plt Count Lymph % (Auto) Lymph # (Auto) Seg Neutrophils % Seg Neutrophils # ABG pH POC ABG pCO2 POC ABG pO2 ABG Hemoglobin ABG Oxyhemoglobin ABG Sodium ABG Potassium ABG Glucose Sodium 134 L Potassium Chloride 95.5 L Carbon Dioxide BUN 23 H Creatinine 2.6 H Glucose 168 H POC Glucose 142 H 163 H Calcium Phosphorus Ammonia Total Protein 5.8 L Albumin 3.3 L Arterial Blood Glucose Arterial Blood Ionized Calcium Phenytoin Valproic Acid 01/13/21 01/13/21 01/14/21 20:22 23:57 06:31 WBC Hgb Hct MCV MCH RDW Plt Count Lymph % (Auto) Lymph # (Auto) Seg Neutrophils % Seg Neutrophils # ABG pH POC ABG pCO2 POC ABG pO2 ABG Hemoglobin ABG Oxyhemoglobin ABG Sodium ABG Potassium ABG Glucose Sodium Potassium Chloride Carbon Dioxide BUN Creatinine Glucose POC Glucose 209 H 189 H 236 H Calcium Phosphorus Ammonia Total Protein Albumin Arterial Blood Glucose Arterial Blood Ionized Calcium Phenytoin Valproic Acid 01/14/21 01/14/21 01/14/21 08:57 08:57 12:22 WBC 12.0 H Hgb 11.3 L Hct 34.5 L MCV MCH RDW 20.6 H Plt Count Lymph % (Auto) 6.4 L Lymph # (Auto) 0.8 L Seg Neutrophils % 87.4 H Seg Neutrophils # 10.5 H ABG pH POC ABG pCO2 POC ABG pO2 ABG Hemoglobin ABG Oxyhemoglobin ABG Sodium ABG Potassium ABG Glucose Sodium 131 L Potassium Chloride 93.7 L Carbon Dioxide BUN 37 H Creatinine 3.7 H Glucose 261 H POC Glucose 280 H Calcium Phosphorus Ammonia Total Protein Albumin Arterial Blood Glucose Arterial Blood Ionized Calcium Phenytoin Valproic Acid 01/14/21 01/14/21 01/15/21 16:15 22:28 04:43 WBC Hgb Hct MCV MCH RDW Plt Count Lymph % (Auto) Lymph # (Auto) Seg Neutrophils % Seg Neutrophils # ABG pH POC ABG pCO2 POC ABG pO2 ABG Hemoglobin ABG Oxyhemoglobin ABG Sodium ABG Potassium ABG Glucose Sodium Potassium Chloride Carbon Dioxide BUN Creatinine Glucose POC Glucose 289 H 252 H 243 H Calcium Phosphorus Ammonia Total Protein Albumin Arterial Blood Glucose Arterial Blood Ionized Calcium Phenytoin Valproic Acid 01/15/21 01/15/21 01/15/21 05:22 05:22 08:56 WBC 11.1 H Hgb 11.0 L Hct 33.3 L MCV 83 L MCH 27 L RDW 20.6 H Plt Count Lymph % (Auto) 6.3 L Lymph # (Auto) 0.7 L Seg Neutrophils % 88.2 H Seg Neutrophils # 9.8 H ABG pH POC ABG pCO2 POC ABG pO2 ABG Hemoglobin ABG Oxyhemoglobin ABG Sodium ABG Potassium ABG Glucose Sodium 130 L Potassium Chloride 92.0 L Carbon Dioxide BUN 49 H Creatinine 4.2 H Glucose 241 H POC Glucose Calcium Phosphorus Ammonia Total Protein Albumin Arterial Blood Glucose Arterial Blood Ionized Calcium Phenytoin Valproic Acid 45.9 L 01/15/21 01/15/21 01/15/21 16:42 18:14 23:10 WBC Hgb Hct MCV MCH RDW Plt Count Lymph % (Auto) Lymph # (Auto) Seg Neutrophils % Seg Neutrophils # ABG pH 7.463 H POC ABG pCO2 POC ABG pO2 377.4 H ABG Hemoglobin 11.6 L ABG Oxyhemoglobin 98.6 H ABG Sodium 130.1 L ABG Potassium ABG Glucose 254 H Sodium Potassium Chloride Carbon Dioxide BUN Creatinine Glucose POC Glucose 218 H 279 H Calcium Phosphorus Ammonia Total Protein Albumin Arterial Blood Glucose 254 H Arterial Blood Ionized Calcium 4.5 L Phenytoin Valproic Acid 01/16/21 01/16/21 01/16/21 03:10 05:11 05:17 WBC Hgb 10.4 L Hct 31.8 L MCV MCH 27 L RDW 20.3 H Plt Count 132 L Lymph % (Auto) Lymph # (Auto) Seg Neutrophils % Seg Neutrophils # ABG pH POC ABG pCO2 POC ABG pO2 174.4 H ABG Hemoglobin 10.3 L ABG Oxyhemoglobin 98.6 H ABG Sodium 129.9 L ABG Potassium 3.2 L ABG Glucose 202 H Sodium Potassium Chloride Carbon Dioxide BUN Creatinine Glucose POC Glucose 193 H Calcium Phosphorus Ammonia Total Protein Albumin Arterial Blood Glucose 202 H Arterial Blood Ionized Calcium Phenytoin Valproic Acid 01/16/21 01/16/21 01/16/21 05:17 09:15 11:33 WBC Hgb Hct MCV MCH RDW Plt Count Lymph % (Auto) Lymph # (Auto) Seg Neutrophils % Seg Neutrophils # ABG pH POC ABG pCO2 POC ABG pO2 ABG Hemoglobin ABG Oxyhemoglobin ABG Sodium ABG Potassium ABG Glucose Sodium Potassium 3.4 L Chloride Carbon Dioxide BUN 36 H Creatinine 3.2 H Glucose 216 H POC Glucose 174 H Calcium 8.3 L Phosphorus 1.10 L Ammonia Total Protein Albumin Arterial Blood Glucose Arterial Blood Ionized Calcium Phenytoin 6.5 L Valproic Acid 01/16/21 01/17/21 01/17/21 18:13 00:10 04:00 WBC Hgb Hct MCV MCH RDW Plt Count Lymph % (Auto) Lymph # (Auto) Seg Neutrophils % Seg Neutrophils # ABG pH POC ABG pCO2 POC ABG pO2 ABG Hemoglobin 10.1 L ABG Oxyhemoglobin ABG Sodium 130.1 L ABG Potassium 3.3 L ABG Glucose 153 H Sodium Potassium Chloride Carbon Dioxide BUN Creatinine Glucose POC Glucose 162 H 150 H Calcium Phosphorus Ammonia Total Protein Albumin Arterial Blood Glucose 153 H Arterial Blood Ionized Calcium Phenytoin Valproic Acid 01/17/21 01/17/21 01/17/21 05:30 05:48 11:14 WBC Hgb Hct MCV MCH RDW Plt Count Lymph % (Auto) Lymph # (Auto) Seg Neutrophils % Seg Neutrophils # ABG pH POC ABG pCO2 POC ABG pO2 ABG Hemoglobin ABG Oxyhemoglobin ABG Sodium ABG Potassium ABG Glucose Sodium 136 L Potassium 3.5 L Chloride Carbon Dioxide BUN 48 H Creatinine 3.5 H Glucose 165 H POC Glucose 149 H Calcium 8.0 L Phosphorus 0.80 L* D Ammonia 22.0 L Total Protein Albumin Arterial Blood Glucose Arterial Blood Ionized Calcium Phenytoin Valproic Acid 01/17/21 01/17/21 01/17/21 11:43 17:34 18:46 WBC Hgb Hct MCV MCH RDW Plt Count Lymph % (Auto) Lymph # (Auto) Seg Neutrophils % Seg Neutrophils # ABG pH POC ABG pCO2 POC ABG pO2 ABG Hemoglobin ABG Oxyhemoglobin ABG Sodium ABG Potassium ABG Glucose Sodium Potassium Chloride Carbon Dioxide BUN Creatinine Glucose POC Glucose 160 H 209 H Calcium Phosphorus 2.20 L D Ammonia Total Protein Albumin Arterial Blood Glucose Arterial Blood Ionized Calcium Phenytoin Valproic Acid 01/17/21 01/17/21 01/18/21 19:00 23:19 03:28 WBC Hgb Hct MCV MCH RDW Plt Count Lymph % (Auto) Lymph # (Auto) Seg Neutrophils % Seg Neutrophils # ABG pH POC ABG pCO2 POC ABG pO2 190.2 H ABG Hemoglobin 11.9 L ABG Oxyhemoglobin 98.5 H ABG Sodium 130.9 L 131.0 L ABG Potassium 3.0 L 2.8 L ABG Glucose 241 H Sodium Potassium Chloride Carbon Dioxide BUN Creatinine Glucose POC Glucose 222 H Calcium Phosphorus Ammonia Total Protein Albumin Arterial Blood Glucose 241 H Arterial Blood Ionized Calcium 4.5 L Phenytoin Valproic Acid 01/18/21 01/18/21 01/18/21 04:16 06:20 10:20 WBC 14.1 H Hgb 11.2 L Hct 34.5 L MCV 83 L MCH 27 L RDW 20.8 H Plt Count 116 L Lymph % (Auto) Lymph # (Auto) Seg Neutrophils % Seg Neutrophils # ABG pH POC ABG pCO2 POC ABG pO2 ABG Hemoglobin ABG Oxyhemoglobin ABG Sodium ABG Potassium ABG Glucose Sodium 134 L Potassium 2.9 L* Chloride Carbon Dioxide 21 L BUN 60 H Creatinine 3.9 H Glucose POC Glucose 69 L Calcium Phosphorus 1.60 L D Ammonia Total Protein Albumin Arterial Blood Glucose Arterial Blood Ionized Calcium Phenytoin Valproic Acid 01/18/21 01/18/21 01/18/21 11:29 15:30 17:23 WBC Hgb Hct MCV MCH RDW Plt Count Lymph % (Auto) Lymph # (Auto) Seg Neutrophils % Seg Neutrophils # ABG pH POC ABG pCO2 POC ABG pO2 ABG Hemoglobin ABG Oxyhemoglobin ABG Sodium ABG Potassium ABG Glucose Sodium Potassium 3.3 L Chloride Carbon Dioxide BUN 42 H Creatinine 3.1 H Glucose 190 H POC Glucose 128 H 167 H Calcium 8.2 L Phosphorus 1.10 L D Ammonia Total Protein Albumin Arterial Blood Glucose Arterial Blood Ionized Calcium Phenytoin Valproic Acid 01/18/21 01/19/21 01/19/21 23:43 03:43 04:38 WBC Hgb Hct MCV MCH RDW Plt Count Lymph % (Auto) Lymph # (Auto) Seg Neutrophils % Seg Neutrophils # ABG pH 7.536 H POC ABG pCO2 27.0 L POC ABG pO2 165.8 H ABG Hemoglobin 10.7 L ABG Oxyhemoglobin 98.4 H ABG Sodium 131.3 L ABG Potassium ABG Glucose 152 H Sodium Potassium Chloride Carbon Dioxide BUN 55 H Creatinine 3.8 H Glucose 143 H POC Glucose 232 H Calcium Phosphorus 1.10 L Ammonia Total Protein Albumin Arterial Blood Glucose 152 H Arterial Blood Ionized Calcium Phenytoin Valproic Acid 01/19/21 01/19/21 01/19/21 05:12 11:36 15:16 WBC Hgb Hct MCV MCH RDW Plt Count Lymph % (Auto) Lymph # (Auto) Seg Neutrophils % Seg Neutrophils # ABG pH POC ABG pCO2 POC ABG pO2 ABG Hemoglobin ABG Oxyhemoglobin ABG Sodium ABG Potassium ABG Glucose Sodium Potassium Chloride Carbon Dioxide BUN Creatinine Glucose POC Glucose 135 H 201 H Calcium Phosphorus 1.10 L Ammonia Total Protein Albumin Arterial Blood Glucose Arterial Blood Ionized Calcium Phenytoin Valproic Acid 01/19/21 01/19/21 01/20/21 17:55 23:22 04:00 WBC Hgb Hct MCV MCH RDW Plt Count Lymph % (Auto) Lymph # (Auto) Seg Neutrophils % Seg Neutrophils # ABG pH 7.513 H POC ABG pCO2 POC ABG pO2 ABG Hemoglobin 9.9 L ABG Oxyhemoglobin ABG Sodium 129.4 L ABG Potassium ABG Glucose 196 H Sodium Potassium Chloride Carbon Dioxide BUN Creatinine Glucose POC Glucose 222 H 252 H Calcium Phosphorus Ammonia Total Protein Albumin Arterial Blood Glucose 196 H Arterial Blood Ionized Calcium Phenytoin Valproic Acid 01/20/21 05:15 WBC Hgb Hct MCV MCH RDW Plt Count Lymph % (Auto) Lymph # (Auto) Seg Neutrophils % Seg Neutrophils # ABG pH POC ABG pCO2 POC ABG pO2 ABG Hemoglobin ABG Oxyhemoglobin ABG Sodium ABG Potassium ABG Glucose Sodium Potassium Chloride Carbon Dioxide BUN Creatinine Glucose POC Glucose 163 H Calcium Phosphorus Ammonia Total Protein Albumin Arterial Blood Glucose Arterial Blood Ionized Calcium Phenytoin Valproic Acid
--- NOTE | 2021-01-20 11:20 | Progress Note ---
<RODRÍGUEZ COLON - Last Filed: 01/20/21 11:17> Assessment and Plan Assessment and plan: 80-year-old male with ESRD on HD, HTN, CAD, cerebral arthrosclerosis, vascular dementia who is admitted for new onset seizures. On 01/15 patient was transferred to ICU and intubated for possible status epilepticus. Neuro: New onset seizure disorder; possibly be in status epilepticus. Neurology consulted, appreciate recommendations CT of the brain noted, no signs of acute infarct MRI showing subacute to chronic subdural hematoma. 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 -Celebrex, Keppra, Depacon -01/14 EEG is significantly abnormal, diffuse background slowing in 3-4 Hz, patient had a vertex waves and sleep spindles noted bilaterally and centrally, 2 events of facial twitching with associated generalized tonic/clonic activities, lasting for at least 15 seconds each followed by suppressions, findings suggestive of encephalopathic process and/or higher tendency of possible focal seizures with generalization, possibility of source of blood loss cannot be totally excluded -01/15 EEG shows burst suppression pattern, intermittent sharp electric activity is noted throughout the recording, pronounced in the right frontal region, findings consistent with generalized seizure activity -01/16 EEG shows findings of generalized burst suppression as well as recurrent triphasic waves sinuses Rocephin for the process, and her drug effect, reports after stage cannot be excluded, possibility of toxic metabolic and/or hepatic and/or renal insufficiency cannot be excluded -01/17 EEG shows significant improvement previous recording, no epileptiform discharges noted, no runs of sharp looking activity is appreciated, intermittent triphasic waves noted mostly bifrontally and improvement in the background activity to 4-6 Hz noted throughout the recording, concerning suggestive of mild encephalopathic process and/or postictal state of possibility of flexor metabolic etiology cannot be totally excluded -01/18 EEG interpreted as mildly encephalopathic process with background 4-5 Hz noted throughout the recording with triphasic waves noted occasionally and vertex waves centrally more pronounced on the left side, no epileptiform discharge appreciated, suggestive of possible toxic metabolic and/or drug effect, possibility of postictal state cannot be totally excluded -Aspiration and seizures precautions Vascular dementia No behavioral disturbances Currently stable at this time Chronic subdural hematoma -Noted on MRI We will hold anticoagulation Cerebral atherosclerosis Hold antiplatelet therapy Cardio: History of hypertension secondary to renal disease Hydralazine as needed, hold metoprolol in setting of hypotension and resume as needed -S/p Levophed for hypotension Resp: Acute hypoxic respiratory failure -Intubated 01/15 for possible status epilepticus however patient was extubated on 01/17 and had to be reintubated on 01/17 for hypoxia -Wean mechanical ventilation as tolerated -VAP bundle -SPO2 monitoring per protocol -Serial ABGs and CXR FEN/GI: End-stage renal disease on HD Nephrology consulted Dialysis per renal team -Renally dose medications -Avoid nephrotoxic medications Hypophosphatemia -01/16 phosphate 1.1, 01/17 phosphate 0.8, 01/17 phos 2.2, 01/18 Phos 1.6, 01/19 phos 1.1 -Repleate with PhosNak -Trend Phos levels Severe dysphagia; Failure to thrive Chronic PEG tube -On tube feedings, Accu-Cheks every 6, SSI ID: [id number] in sputum -Cefepime -01/13 nares: MRSA positive -01/15 tracheal aspirate with gram-negative rods, mod growth : NAD -Anuric Heme: Anemia of chronic disease -Admit H/H 12. -Transfuse for hemoglobin less than 7 Thrombocytopenia improving -01/16 platelets 132 -Trend CBC -Hold anticouagualtion in setting of chronic SDH Skin: NAD -Turning per protocol -Per RN, healed sacral ulcer CODE STATUS: Full DVT prophylaxis: SCDs to BLE while in bed Lines: PIV Disposition: ICU for now The high probability of a clinically significant, sudden or life threatening deterioration of the [neuro, resp] system(s) required my full and direct attention, intervention and personal management. The aggregate critical care time was [35] minutes. This time is in addition to time spent performing reported procedures but includes the following: [x] Data Review and interpretation [x] Patient assessment and monitoring of vital signs [x] Documentation [x] Medication orders and management History Interval history: This 80-year-old male who is a resident of a shelter facility with ESRD on HD Thursday, , Thursday), hyperlipidemia, hypertension, vascular dementia, cerebral sclerosis presents to the emergency department after suspected cardiac arrest and initiation of ACLS at the dialysis center 01/12/2021 however upon EMS arrival patient was noted to be actively seizing and chest compressions were discontinued. Upon arrival to the emergency department patient was found to have new onset seizure disorder, acidosis. Nephrology was consulted for ESRD. Patient was initially admitted to the telemetry floor under observation. 01/13/2021. Seizure precautions. Continue IV Keppra and await neurology evalu ation. Check EEG and MRI. CT scan negative. Continue hemodialysis per nephrology recommendations. 01/14/2021. Patient is somnolent and lethargic. However, no new seizure activity noted. CT brain is remarkable for white matter changes. Continue seizure precautions. Follow-up EEG and MRI brain. Neurology decrease Keppra to 250 mg twice daily. Ativan as needed for seizure. Continue hemodialysis per nephrology recommendations. 01/15/2021: There is no overt seizure activity, however patient continues to be nonverbal. Patient seen after dialysis. Patient is not responsive to any verbal cues. Patient is moaning. 01/16: Patient had EEG today and was noted to be having seizure activity on 2 mg of Versed and this was uptitrated to 3 mg Versed. Neurology has been informed. Hypokalemia and hypophosphatemia addressed. Likely HD tomorrow. 01/17: Repeat EEG completed today. Severe hypophosphatemia noted today, repleted with IV phos. HD scheduled today. 01/18: Repeat EEG today per neuro, HD per nephro. Hypokalemia today to 2.9 and hypophosphatemia to 1.6, patient received 40 M EQ of KCl, PhosNak for 1 day. Will obtain pm labs. Pateint is less responsive today but Neuro does not think he had another seizure. Thrombocytopenia, will trend CBC. Patient became hypoxic towards the end of dialysis and failed BiPAP therapy and had to be intubated for hypoxia. 01/19: UDS shows presumptive benzo, HD today per nephro, Phos remains low but still has not completed supplementation. Nephro suggests flumazenil. Per CCM if not more wake by angeline, we will try and possibly obtain CT head. 01/20: On CMV tidal volume 550, rate of 18, PEEP of 6 on 45% FiO2, patient has a better physical exam with neurology this morning. AM labs pending. Hold CT head and flumazenil. Hospitalist Physical - Constitutional Vitals: Temp Pulse Resp BP Pulse Ox 98.4 F 98 H 22 120/65 100 01/20/21 03:27 01/20/21 10:30 01/20/21 10:30 01/20/21 10:30 01/20/21 10:30 General appearance: Present: no acute distress, other (on MV) - EENT Eyes: Present: PERRL, EOM intact - Neck Neck: Absent: masses or JVD, cervical LAD - Respiratory Respiratory effort: normal Respiratory: bilateral: rhonchi - Cardiovascular Rhythm: regular Heart Sounds: Present: S1 & S2. Absent: systolic murmur, diastolic murmur - Extremities Extremities: no ischemia, pulses intact, pulses symmetrical, normal temperature, normal color Extremity abnormal: edema Peripheral Pulses: within normal limits - Abdominal General gastrointestinal: soft, non-tender, non-distended, normal bowel sounds - Integumentary Integumentary: Present: warm, dry - Neurologic Neurologic: other (moves BLE to painful stimuli and spontanously. PERRL. intact cough/gag) - Allied Health Allied health notes reviewed: nursing, RT, social work Results - Labs CBC & Chem 7: 01/18/21 10:20 01/19/21 04:38 Labs: Laboratory Last Values WBC 14.1 K/mm3 (4.5-11.0) H 01/18/21 10:20 RBC 4.15 M/mm3 (3.65-5.03) 01/18/21 10:20 Hgb 11.2 gm/dl (11.8-15.2) L 01/18/21 10:20 Hct 34.5 % (35.5-45.6) L 01/18/21 10:20 MCV 83 fl (84-94) L 01/18/21 10:20 MCH 27 pg (28-32) L 01/18/21 10:20 MCHC 33 % (32-34) 01/18/21 10:20 RDW 20.8 % (13.2-15.2) H 01/18/21 10:20 Plt Count 116 K/mm3 (140-440) L 01/18/21 10:20 Lymph % (Auto) 6.3 % (13.4-35.0) L 01/15/21 05:22 Dickinson % (Auto) 5.4 % (0.0-7.3) 01/15/21 05:22 Eos % (Auto) 0.0 % (0.0-4.3) 01/15/21 05:22 Baso % (Auto) 0.1 % (0.0-1.8) 01/15/21 05:22 Lymph # (Auto) 0.7 K/mm3 (1.2-5.4) L 01/15/21 05:22 Dickinson # (Auto) 0.6 K/mm3 (0.0-0.8) 01/15/21 05:22 Eos # (Auto) 0.0 K/mm3 (0.0-0.4) 01/15/21 05:22 Baso # (Auto) 0.0 K/mm3 (0.0-0.1) 01/15/21 05:22 Seg Neutrophils % 88.2 % (40.0-70.0) H 01/15/21 05:22 Seg Neutrophils # 9.8 K/mm3 (1.8-7.7) H 01/15/21 05:22 ABG pH 7.513 (7.320-7.450) H 01/20/21 04:00 POC ABG pCO2 33.2 mmHg (32.0-48.0) 01/20/21 04:00 POC ABG pO2 97.9 mmHg (83-108) 01/20/21 04:00 POC ABG HCO3 26.1 01/20/21 04:00 ABG O2 Saturation 98.1 (0-100) 01/20/21 04:00 POC ABG Base Excess 3.2 01/20/21 04:00 ABG Hemoglobin 9.9 (12.0-17.5) L 01/20/21 04:00 ABG Oxyhemoglobin 96.4 (94-98) 01/20/21 04:00 ABG Methemoglobin 0.3 (0.0-1.5) 01/20/21 04:00 ABG Sodium 129.4 mmol/L (136.0-145.0) L 01/20/21 04:00 ABG Potassium 3.6 mmol/L (3.40-4.50) 01/20/21 04:00 ABG Chloride 100.0 mmol/L (98-107) 01/20/21 04:00 ABG Glucose 196 mg/dL (65-95) H 01/20/21 04:00 Carboxyhemoglobin 1.4 (0.5-1.5) 01/20/21 04:00 FiO2 % 45.0 01/20/21 04:00 Sodium 137 mmol/L (137-145) 01/19/21 04:38 Potassium 4.2 mmol/L (3.6-5.0) D 01/19/21 04:38 Chloride 98.6 mmol/L (98-107) 01/19/21 04:38 Carbon Dioxide 23 mmol/L (22-30) 01/19/21 04:38 Anion Gap 20 mmol/L 01/19/21 04:38 BUN 55 mg/dL (9-20) H 01/19/21 04:38 Creatinine 3.8 mg/dL (0.8-1.3) H 01/19/21 04:38 Estimated GFR 19 ml/min 01/19/21 04:38 BUN/Creatinine Ratio 14 % 01/19/21 04:38 Glucose 143 mg/dL (75-100) H 01/19/21 04:38 POC Glucose 163 mg/dL (70-105) H 01/20/21 05:15 Calcium 8.8 mg/dL (8.4-10.2) 01/19/21 04:38 Phosphorus 1.10 mg/dL (2.5-4.5) L 01/19/21 15:16 Magnesium 1.90 mg/dL (1.7-2.3) 01/19/21 04:38 Total Bilirubin 0.30 mg/dL (0.1-1.2) 01/13/21 05:19 Direct Bilirubin < 0.2 mg/dL (0-0.2) 01/12/21 14:36 Indirect Bilirubin 0.1 mg/dL 01/12/21 14:36 AST 27 units/L (5-40) 01/13/21 05:19 ALT 10 units/L (7-56) 01/13/21 05:19 Alkaline Phosphatase 72 units/L (35-129) 01/13/21 05:19 Ammonia 22.0 umol/L (25-60) L 01/17/21 11:14 Total Protein 5.8 g/dL (6.3-8.2) L 01/13/21 05:19 Albumin 3.3 g/dL (3.9-5) L 01/13/21 05:19 Albumin/Globulin Ratio 1.3 % 01/13/21 05:19 Arterial Blood Glucose 196 mg/dL (65-95) H 01/20/21 04:00 Arterial Blood Ionized Calcium 4.6 mg/dL (4.6-5.3) 01/20/21 04:00 Nasal Screen MRSA (PCR) Positive (Negative) 01/13/21 Unknown Urine Opiates Screen Negative 01/18/21 14:25 Urine Methadone Screen Negative 01/18/21 14:25 Ur Barbiturates Screen Negative 01/18/21 14:25 Phenytoin 6.5 ug/mL (10.0-20.0) L 01/16/21 09:15 Valproic Acid 45.9 ug/mL (50-100) L 01/15/21 08:56 Ur Phencyclidine Scrn Negative 01/18/21 14:25 Ur Amphetamines Screen Negative 01/18/21 14:25 U Benzodiazepines Scrn Presumptive positive 01/18/21 14:25 Urine Cocaine Screen Negative 01/18/21 14:25 U Marijuana (THC) Screen Negative 01/18/21 14:25 Drugs of Abuse Note Disclamer 01/18/21 14:25 Coronavirus (PCR) Negative (Negative) 01/15/21 08:00 Hepatitis A IgM Ab Non-reactive (NonReactive) 01/15/21 09:15 Hep Bs Antigen Non-reactive (Negative) 01/15/21 09:15 Hep B Core IgM Ab Non-reactive (NonReactive) 01/15/21 09:15 Hepatitis C Antibody Non-reactive (NonReactive) 01/15/21 09:15 Microbiology: Microbiology 01/15/21 16:51 Tracheal Aspirate Sputum Culture - Preliminary Gram Negative Tucker Brewer/IV: Voiding Method Incontinent Active Medications - Current Medications Current Medications: Generic Name Dose Route Start Last Admin Trade Name Freq PRN Reason Stop Dose Admin Acetaminophen 650 mg 01/12/21 19:30 Acetaminophen 325 Mg Tab PO Q4H PRN Pain MILD(1-3)/Fever >100.5/ABEL Albuterol 2.5 mg 01/12/21 19:30 Albuterol 2.5 Mg/3 Ml Nebu IH Q4HRT PRN Shortness Of Breath Lipase/Protease/Amylase 1 each 01/13/21 10:11 Lipase 10,500/Protease 25,000/Amylase 43,750 (Units) Dr Silveira FEEDTUBE PRN PRN For Clogged Feeding Tube Atorvastatin Calcium 40 mg 01/12/21 22:00 01/19/21 21:24 Atorvastatin 40 Mg Tab PO 40 mg QHS NOLAN Administration Calcitriol 1 mcg 01/13/21 10:00 01/20/21 09:43 Calcitriol 0.5 Mcg Cap PO 1 mcg QDAY NOLAN Administration Docusate Sodium 100 mg 01/17/21 09:00 Docusate Sodium 100 Mg/10 Ml Oral Liqd PO BID PRN Constipation Doxazosin Mesylate 2 mg 01/18/21 10:00 01/20/21 09:44 Doxazosin 1 Mg Tab PO 2 mg QDAY NOLAN Administration Fentanyl 25 mcg 01/17/21 18:10 Fentanyl 100 Mcg/2 Ml Inj IV Q2HR PRN Pain , Severe (7-10) Hydrophilic Ointment 1 applic 01/15/21 17:14 Lip Therapy Vaseline TP Q2HR PRN Dry Lips Valproate Sodium 500 mg/ 105 mls @ 100 mls/hr 01/14/21 22:00 01/20/21 06:27 Sodium Chloride IV 100 mls/hr Q8H NOLAN Administration Sodium Chloride 100 mls @ 999 mls/hr 01/15/21 08:00 Nacl 0.9% IV DIONNA PRN Hypotension Norepinephrine 4 mg in 250 mls @ 7.5 mls/hr 01/15/21 19:00 01/16/21 09:15 Levophed Drip 4 Mg/Ns 250 Ml IV 0 mcg/min TITR NOLAN 0 mls/hr Titration Protocol 2 MCG/MIN Levetiracetam 250 mg/ Dextrose 52.5 mls @ 200 mls/hr 01/15/21 22:00 01/20/21 09:43 IV 200 mls/hr Q12HR NOLAN Administration Fosphenytoin Sodium 100 mg.pe/ 102 mls @ 200 mls/hr 01/19/21 18:00 01/19/21 17:52 Sodium Chloride IV 200 mls/hr QPM NOLAN Administration Cefepime HCl 0.5 gm/ Sodium 100 mls @ 200 mls/hr 01/19/21 18:00 01/19/21 17:52 Chloride IV 200 mls/hr Q24H NOLAN Administration Protocol Insulin Human Lispro 0 unit 07/14/21 00:00 01/20/21 07:09 Insulin Lispro 100 Unit/Ml SUB-Q 1 unit Q6HR NOLAN Administration Protocol Lansoprazole 30 mg 01/12/21 22:00 01/20/21 09:44 Lansoprazole 30 Mg Solutab FEEDTUBE 30 mg BID NOLAN Administration Linagliptin 5 mg 01/13/21 11:00 01/20/21 08:32 Linagliptin 5 Mg Tab PO 5 mg QDDIAB NOLAN Administration Multi-Ingred Cream/Lotion/Oil/Oint 1 applic 01/15/21 17:14 Mineral Oil/Petrolatum, White Ophth Oint 3.5 Gm OU Q4HR PRN Dry Eye(s) Ondansetron HCl 4 mg 01/12/21 19:30 Ondansetron 4 Mg/2 Ml Inj IV Q8H PRN Nausea And Vomiting Simple Syrup 15 ml 01/13/21 10:11 01/18/21 06:54 Simple Syrup 15 Ml FEEDTUBE 15 ml PRN PRN Administration Hypoglycemia Simple Syrup 30 ml 01/13/21 10:11 Simple Syrup 15 Ml FEEDTUBE PRN PRN Hypoglycemia Sodium Bicarbonate 325 mg 01/13/21 10:11 Sodium Bicarbonate 325 Mg Tab FEEDTUBE PRN PRN For Clogged Feeding Tube Sodium Chloride 10 ml 01/12/21 22:00 01/20/21 09:46 Sodium Chloride 0.9% 10 Ml Flush Syringe IV 10 ml BID NOLAN Administration Sodium Chloride 10 ml 01/12/21 19:30 Sodium Chloride 0.9% 10 Ml Flush Syringe IV PRN PRN LINE FLUSH Timolol Maleate 1 drops 01/17/21 10:00 01/20/21 09:46 Timolol 0.5% Ophth Soln 5 Ml OU 1 drops QDAY NOLAN Administration Nutrition/Malnutrition Assess - Dietary Evaluation Nutrition/Malnutrition Findings: Nutrition Notes Start: 01/13/21 10 :03 Freq: Status: Active Protocol: Document 01/17/21 10:38 (Rec: 01/17/21 10:40 [id number]) Nutrition Notes Initial or Follow up Reassessment Current Diagnosis CKD (stage V CKD),Diabetes, Hypertension,Hyperlipidemia Other Pertinent Diagnosis on HD, dementia, new on set seizure disorder Current Diet Nepro 1.8 at 38 ml/hr Labs/Tests Na 136 K 3.5 Phos 0.8 Pertinent Medications sodium phosphate Height 5 ft 9 in Weight 56.1 kg [place] Body Weight (kg) 72.72 BMI 18.2 Weight Status Underweight Subjective/Other Information Observed TF running at goal rate and pt tolerating. Percent of energy/protein needs met: 100%/100% Burn Absent Trauma Absent Difficulty In Swallowing,Chewing Current % PO Negligible Minimum of two criteria No #2 Nutrition Diagnosis Increased nutrient needs ( specify in comment below) Diagnosis Progress(for reassessment Continues documentation) #1 Nutrition Diagnosis Inadequate oral intake Diagnosis Progress(for reassessment Continues documentation) Is patient on ventilator? No Is Patient Ambulatory and/or Out of Bed No REE-([facility] [place]-confined to bed) 1501.841 Calculation Used for Recommendations [facility] Additional Notes Protein: (>1.25g/kg) greater than 71g Fluid: 1ml/kcal or per MD Nutrition Intervention Nutrition Support: Nepro 1.8 at 38 ml/hr Flush 150 ml q4h Kcal 1,642 Protein (gm) 74 Fluid (mL) 611 Goal #1 Meet at least 75% of protein and energy needs via TF Goal #2 Wound healing Goal #3 Wt gain/maintenance Anticipated Discharge Needs: Nepro 1.8 at 38 ml/hr Flush 150 ml q4h Follow-Up By: 01/24/21 Additional Comments FU for stable TF <DUY HOYT - Last Filed: 01/20/21 14:18> Assessment and Plan Assessment and plan: Agree with assessment and plan as outlined by nurse practitioner, I have personally examined the patient, patient is slightly more awake but continues to be lethargic. Neurology is cutting down on seizure medications and we will continue to monitor the patient. EEG most likely tomorrow. Hospitalist Physical - Constitutional Vitals: Temp Pulse Resp BP Pulse Ox 99.4 F 95 H 24 98/54 100 01/20/21 11:18 01/20/21 13:20 01/20/21 13:20 01/20/21 13:20 01/20/21 13:20 Results - Labs CBC & Chem 7: 01/18/21 10:20 01/19/21 04:38 Labs: Laboratory Last Values WBC 14.1 K/mm3 (4.5-11.0) H 01/18/21 10:20 RBC 4.15 M/mm3 (3.65-5.03) 01/18/21 10:20 Hgb 11.2 gm/dl (11.8-15.2) L 01/18/21 10:20 Hct 34.5 % (35.5-45.6) L 01/18/21 10:20 MCV 83 fl (84-94) L 01/18/21 10:20 MCH 27 pg (28-32) L 01/18/21 10:20 MCHC 33 % (32-34) 01/18/21 10:20 RDW 20.8 % (13.2-15.2) H 01/18/21 10:20 Plt Count 116 K/mm3 (140-440) L 01/18/21 10:20 Lymph % (Auto) 6.3 % (13.4-35.0) L 01/15/21 05:22 Dickinson % (Auto) 5.4 % (0.0-7.3) 01/15/21 05:22 Eos % (Auto) 0.0 % (0.0-4.3) 01/15/21 05:22 Baso % (Auto) 0.1 % (0.0-1.8) 01/15/21 05:22 Lymph # (Auto) 0.7 K/mm3 (1.2-5.4) L 01/15/21 05:22 Dickinson # (Auto) 0.6 K/mm3 (0.0-0.8) 01/15/21 05:22 Eos # (Auto) 0.0 K/mm3 (0.0-0.4) 01/15/21 05:22 Baso # (Auto) 0.0 K/mm3 (0.0-0.1) 01/15/21 05:22 Seg Neutrophils % 88.2 % (40.0-70.0) H 01/15/21 05:22 Seg Neutrophils # 9.8 K/mm3 (1.8-7.7) H 01/15/21 05:22 ABG pH 7.513 (7.320-7.450) H 01/20/21 04:00 POC ABG pCO2 33.2 mmHg (32.0-48.0) 01/20/21 04:00 POC ABG pO2 97.9 mmHg (83-108) 01/20/21 04:00 POC ABG HCO3 26.1 01/20/21 04:00 ABG O2 Saturation 98.1 (0-100) 01/20/21 04:00 POC ABG Base Excess 3.2 01/20/21 04:00 ABG Hemoglobin 9.9 (12.0-17.5) L 01/20/21 04:00 ABG Oxyhemoglobin 96.4 (94-98) 01/20/21 04:00 ABG Methemoglobin 0.3 (0.0-1.5) 01/20/21 04:00 ABG Sodium 129.4 mmol/L (136.0-145.0) L 01/20/21 04:00 ABG Potassium 3.6 mmol/L (3.40-4.50) 01/20/21 04:00 ABG Chloride 100.0 mmol/L (98-107) 01/20/21 04:00 ABG Glucose 196 mg/dL (65-95) H 01/20/21 04:00 Carboxyhemoglobin 1.4 (0.5-1.5) 01/20/21 04:00 FiO2 % 45.0 01/20/21 04:00 Sodium 137 mmol/L (137-145) 01/19/21 04:38 Potassium 4.2 mmol/L (3.6-5.0) D 01/19/21 04:38 Chloride 98.6 mmol/L (98-107) 01/19/21 04:38 Carbon Dioxide 23 mmol/L (22-30) 01/19/21 04:38 Anion Gap 20 mmol/L 01/19/21 04:38 BUN 55 mg/dL (9-20) H 01/19/21 04:38 Creatinine 3.8 mg/dL (0.8-1.3) H 01/19/21 04:38 Estimated GFR 19 ml/min 01/19/21 04:38 BUN/Creatinine Ratio 14 % 01/19/21 04:38 Glucose 143 mg/dL (75-100) H 01/19/21 04:38 POC Glucose 149 mg/dL (70-105) H 01/20/21 11:15 Calcium 8.8 mg/dL (8.4-10.2) 01/19/21 04:38 Phosphorus 1.10 mg/dL (2.5-4.5) L 01/19/21 15:16 Magnesium 1.90 mg/dL (1.7-2.3) 01/19/21 04:38 Total Bilirubin 0.30 mg/dL (0.1-1.2) 01/13/21 05:19 Direct Bilirubin < 0.2 mg/dL (0-0.2) 01/12/21 14:36 Indirect Bilirubin 0.1 mg/dL 01/12/21 14:36 AST 27 units/L (5-40) 01/13/21 05:19 ALT 10 units/L (7-56) 01/13/21 05:19 Alkaline Phosphatase 72 units/L (35-129) 01/13/21 05:19 Ammonia 22.0 umol/L (25-60) L 01/17/21 11:14 Total Protein 5.8 g/dL (6.3-8.2) L 01/13/21 05:19 Albumin 3.3 g/dL (3.9-5) L 01/13/21 05:19 Albumin/Globulin Ratio 1.3 % 01/13/21 05:19 Arterial Blood Glucose 196 mg/dL (65-95) H 01/20/21 04:00 Arterial Blood Ionized Calcium 4.6 mg/dL (4.6-5.3) 01/20/21 04:00 Nasal Screen MRSA (PCR) Positive (Negative) 01/13/21 Unknown Urine Opiates Screen Negative 01/18/21 14:25 Urine Methadone Screen Negative 01/18/21 14:25 Ur Barbiturates Screen Negative 01/18/21 14:25 Phenytoin 6.5 ug/mL (10.0-20.0) L 01/16/21 09:15 Valproic Acid 45.9 ug/mL (50-100) L 01/15/21 08:56 Ur Phencyclidine Scrn Negative 01/18/21 14:25 Ur Amphetamines Screen Negative 01/18/21 14:25 U Benzodiazepines Scrn Presumptive positive 01/18/21 14:25 Urine Cocaine Screen Negative 01/18/21 14:25 U Marijuana (THC) Screen Negative 01/18/21 14:25 Drugs of Abuse Note Disclamer 01/18/21 14:25 Coronavirus (PCR) Negative (Negative) 01/15/21 08:00 Hepatitis A IgM Ab Non-reactive (NonReactive) 01/15/21 09:15 Hep Bs Antigen Non-reactive (Negative) 01/15/21 09:15 Hep B Core IgM Ab Non-reactive (NonReactive) 01/15/21 09:15 Hepatitis C Antibody Non-reactive (NonReactive) 01/15/21 09:15 Microbiology: Microbiology 01/15/21 16:51 Tracheal Aspirate Sputum Culture - Preliminary Pseudomonas Aeruginosa Brewer/IV: Voiding Method Incontinent Active Medications - Current Medications Current Medications: Generic Name Dose Route Start Last Admin Trade Name Freq PRN Reason Stop Dose Admin Acetaminophen 650 mg 01/12/21 19:30 Acetaminophen 325 Mg Tab PO Q4H PRN Pain MILD(1-3)/Fever >100.5/ABEL Albuterol 2.5 mg 01/12/21 19:30 Albuterol 2.5 Mg/3 Ml Nebu IH Q4HRT PRN Shortness Of Breath Lipase/Protease/Amylase 1 each 01/13/21 10:11 Lipase 10,500/Protease 25,000/Amylase 43,750 (Units) Dr Silveira FEEDTUBE PRN PRN For Clogged Feeding Tube Atorvastatin Calcium 40 mg 01/12/21 22:00 01/19/21 21:24 Atorvastatin 40 Mg Tab PO 40 mg QHS NOLAN Administration Calcitriol 1 mcg 01/13/21 10:00 01/20/21 09:43 Calcitriol 0.5 Mcg Cap PO 1 mcg QDAY NOLAN Administration Docusate Sodium 100 mg 01/17/21 09:00 Docusate Sodium 100 Mg/10 Ml Oral Liqd PO BID PRN Constipation Doxazosin Mesylate 2 mg 01/18/21 10:00 01/20/21 09:44 Doxazosin 1 Mg Tab PO 2 mg QDAY NOLAN Administration Fentanyl 25 mcg 01/17/21 18:10 Fentanyl 100 Mcg/2 Ml Inj IV Q2HR PRN Pain , Severe (7-10) Hydrophilic Ointment 1 applic 01/15/21 17:14 Lip Therapy Vaseline TP Q2HR PRN Dry Lips Valproate Sodium 500 mg/ 105 mls @ 100 mls/hr 01/14/21 22:00 01/20/21 13:30 Sodium Chloride IV 100 mls/hr Q8H NOLAN Administration Sodium Chloride 100 mls @ 999 mls/hr 01/15/21 08:00 Nacl 0.9% IV DIONNA PRN Hypotension Norepinephrine 4 mg in 250 mls @ 7.5 mls/hr 01/15/21 19:00 01/16/21 09:15 Levophed Drip 4 Mg/Ns 250 Ml IV 0 mcg/min TITR NOLAN 0 mls/hr Titration Protocol 2 MCG/MIN Cefepime HCl 1 gm in 100 mls @ 200 mls/hr 01/20/21 18:00 Cefepime/Ns 1 Gm/100 Ml IV Q24H NOLAN Levetiracetam 250 mg/ Dextrose 52.5 mls @ 200 mls/hr 01/20/21 13:00 01/20/21 13:30 IV 200 mls/hr DAILY NOLAN Administration Insulin Human Lispro 0 unit 01/16/21 00:00 01/20/21 11:19 Insulin Lispro 100 Unit/Ml SUB-Q Not Given Q6HR NOLAN Protocol Lansoprazole 30 mg 01/12/21 22:00 01/20/21 09:44 Lansoprazole 30 Mg Solutab FEEDTUBE 30 mg BID NOLAN Administration Linagliptin 5 mg 01/13/21 11:00 01/20/21 08:32 Linagliptin 5 Mg Tab PO 5 mg QDDIAB NOLAN Administration Multi-Ingred Cream/Lotion/Oil/Oint 1 applic 01/15/21 17:14 Mineral Oil/Petrolatum, White Ophth Oint 3.5 Gm OU Q4HR PRN Dry Eye(s) Ondansetron HCl 4 mg 01/12/21 19:30 Ondansetron 4 Mg/2 Ml Inj IV Q8H PRN Nausea And Vomiting Simple Syrup 15 ml 01/13/21 10:11 01/18/21 06:54 Simple Syrup 15 Ml FEEDTUBE 15 ml PRN PRN Administration Hypoglycemia Simple Syrup 30 ml 01/13/21 10:11 Simple Syrup 15 Ml FEEDTUBE PRN PRN Hypoglycemia Sodium Bicarbonate 325 mg 01/13/21 10:11 Sodium Bicarbonate 325 Mg Tab FEEDTUBE PRN PRN For Clogged Feeding Tube Sodium Chloride 10 ml 01/12/21 22:00 01/20/21 09:46 Sodium Chloride 0.9% 10 Ml Flush Syringe IV 10 ml BID NOLAN Administration Sodium Chloride 10 ml 01/12/21 19:30 Sodium Chloride 0.9% 10 Ml Flush Syringe IV PRN PRN LINE FLUSH Timolol Maleate 1 drops 01/17/21 10:00 01/20/21 09:46 Timolol 0.5% Ophth Soln 5 Ml OU 1 drops QDAY NOLAN Administration Nutrition/Malnutrition Assess - Dietary Evaluation Nutrition/Malnutrition Findings: Nutrition Notes Start: 01/13/21 10:03 Freq: Status: Active Protocol: Document 01/17/21 10:38 (Rec: 01/17/21 10:40 [id number]) Nutrition Notes Initial or Follow up Reassessment Current Diagnosis CKD (stage V CKD),Diabetes, Hypertension,Hyperlipidemia Other Pertinent Diagnosis on HD, dementia, new on set seizure disorder Current Diet Nepro 1.8 at 38 ml/hr Labs/Tests Na 136 K 3.5 Phos 0.8 Pertinent Medications sodium phosphate Height 5 ft 9 in Weight 56.1 kg [place] Body Weight (kg) 72.72 BMI 18.2 Weight Status Underweight Subjective/Other Information Observed TF running at goal rate and pt tolerating. Percent of energy/protein needs met: 100%/100% Burn Absent Trauma Absent Difficulty In Swallowing,Chewing Current % PO Negligible Minimum of two criteria No #2 Nutrition Diagnosis Increased nutrient needs ( specify in comment below) Diagnosis Progress(for reassessment Continues documentation) #1 Nutrition Diagnosis Inadequate oral intake Diagnosis Progress(for reassessment Continues documentation) Is patient on ventilator? No Is Patient Ambulatory and/or Out of Bed No REE-([facility] [place]-confined to bed) 1508.844 Calculation Used for Recommendations [facility] Additional Notes Protein: (>1.25g/kg) greater than 71g Fluid: 1ml/kcal or per MD Nutrition Intervention Nutrition Support: Nepro 1.8 at 38 ml/hr Flush 150 ml q4h Kcal 1,642 Protein (gm) 74 Fluid (mL) 611 Goal #1 Meet at least 75% of protein and energy needs via TF Goal #2 Wound healing Goal #3 Wt gain/maintenance Anticipated Discharge Needs: Nepro 1.8 at 38 ml/hr Flush 150 ml q4h Follow-Up By: 01/24/21 Additional Comments FU for stable TF
--- NOTE | 2021-01-20 11:37 | Progress Note ---
Assessment and Plan Assessment and Plan # New onset of possible witnessed seizure during dialysis yesterday -CT brain is remarkable for white matter changes -Keppra 500 mg IV -MRI brain is noted right lateral subdural hematoma , and associated blood in cervical junction -EEG repeat today valproic acid , plus fosphenytoin -- will stop fosphenytoin today -Seizure precaution -Cut down keppra to 250 mg qd -Ativan prn for seizure -Seizure precaution -R/O underlying infection. -Repeat EEG today still show recurrent generalized spike and slow with predominant right frontal and with burst supression battern -Attempt to extubate yesterday end up in reintubation -EEG showed diffuse slowing with no seizure activity # Right lateral subdural hematoma -noted on MRI -Remote -Small # Advanced dementia -Ct white matter changes -truncal rigidity -? base line # End stage renal disease 2.6 -- today 48/3.5 for dialysis today -Nephrology team consulted in ED, -dialysis as per renal team, -avoid nephrotoxic agents. # DVT prophylaxis -SCD to bilateral lower extremities while in bed, prophylactic anticoagulation # Advance care planning -Disease education conducted, care plan discussed, diagnoses discussed, prognosis discussed, patient is full code. Patient family knowledge understanding agree with care plan, +30 minutes. plan 1-Decrease keppra 250 QD 2- maintain valproic 500 mg tid and check valproic acid if continue to do well on thursday valproic can be decreased to 500 mg BID [place] or IV 3-In ICU intubated off [place] 4-Stop fosphentoin 5- continue with dialysis will follow as needed Over all prognosis is quarded he show slight improvment today findings are discussed in details with daughter and ICU team. Subjective Date of service: 01/20/21 Principal diagnosis: witnessed seizure hx of ESRD ,hyponatremia Interval history: Intubated off sedation , not responding to stimuli , had some movment today all limbs no witnessed seizure repeat EEG 01/18/21 showed diffuse slowing with no grey activity is noted will nasrin of fenytoin and stop today over all prognosis is quarded cut down keppra to 250 mg QD maintain valproic acid for now 500 mg tid and repeat level am Objective - Vital Sign Vital Signs - 12hr 01/19/21 01/19/21 01/19/21 23:30 23:40 23:50 Temperature Pulse Rate 105 H 105 H 106 H Pulse Rate [ From Monitor] Respiratory 25 H 20 20 Rate Blood Pressure 106/56 106/56 111/53 O2 Sat by Pulse 100 100 100 Oximetry 01/19/21 01/20/21 01/20/21 23:57 00:00 00:10 Temperature 100 F H Pulse Rate 105 H 101 H Pulse Rate [ 97 H From Monitor] Respiratory 21 24 Rate Blood Pressure 111/53 101/50 O2 Sat by Pulse 100 100 Oximetry 01/20/21 01/20/21 01/20/21 00:14 00:20 00:30 Temperature Pulse Rate 106 H 107 H 107 H Pulse Rate [ From Monitor] Respiratory 14 20 Rate Blood Pressure 109/48 109/48 119/53 O2 Sat by Pulse 100 100 100 Oximetry 01/20/21 01/20/21 01/20/21 00:40 00:50 01:00 Temperature Pulse Rate 103 H 101 H 103 H Pulse Rate [ From Monitor] Respiratory 20 25 H 22 Rate Blood Pressure 119/53 111/45 119/41 O2 Sat by Pulse 100 100 100 Oximetry 01/20/21 01/20/21 01/20/21 01:10 01:20 01:30 Temperature Pulse Rate 97 H 104 H 103 H Pulse Rate [ From Monitor] Respiratory 20 22 22 Rate Blood Pressure 119/41 99/42 97/44 O2 Sat by Pulse 100 100 100 Oximetry 01/20/21 01/20/21 01/20/21 01:40 01:50 02:00 Temperature Pulse Rate 105 H 109 H 105 H Pulse Rate [ From Monitor] Respiratory 22 22 22 Rate Blood Pressure 97/44 104/42 94/52 O2 Sat by Pulse 100 100 100 Oximetry 01/20/21 01/20/21 01/20/21 02:10 02:20 02:30 Temperature Pulse Rate 104 H 109 H 106 H Pulse Rate [ From Monitor] Respiratory 21 25 H 24 Rate Blood Pressure 94/52 104/48 104/48 O2 Sat by Pulse 100 100 100 Oximetry 01/20/21 01/20/21 01/20/21 02:40 02:50 03:00 Temperature Pulse Rate 102 H 115 H 107 H Pulse Rate [ From Monitor] Respiratory 22 18 21 Rate Blood Pressure 98/53 106/50 106/50 O2 Sat by Pulse 100 100 100 Oximetry 01/20/21 01/20/21 01/20/21 03:10 03:20 03:27 Temperature 98.4 F Pulse Rate 93 H 108 H Pulse Rate [ From Monitor] Respiratory 23 21 Rate Blood Pressure 92/44 97/54 O2 Sat by Pulse 100 100 Oximetry 01/20/21 01/20/21 01/20/21 03:30 03:40 03:50 Temperature Pulse Rate 106 H 100 H 104 H Pulse Rate [ From Monitor] Respiratory 24 24 22 Rate Blood Pressure 97/54 100/45 99/42 O2 Sat by Pulse 100 100 100 Oximetry 01/20/21 01/20/21 01/20/21 04:00 04:03 04:10 Temperature Pulse Rate 104 H 108 H 96 H Pulse Rate [ 104 H From Monitor] Respiratory 21 19 Rate Blood Pressure 99/42 87/53 87/53 O2 Sat by Pulse 100 100 100 Oximetry 01/20/21 01/20/21 01/20/21 04:20 04:30 04:40 Temperature Pulse Rate 97 H 108 H 102 H Pulse Rate [ From Monitor] Respiratory 17 16 23 Rate Blood Pressure 93/43 93/43 126/56 O2 Sat by Pulse 100 99 100 Oximetry 01/20/21 01/20/21 01/20/21 04:50 05:00 05:10 Temperature Pulse Rate 109 H 102 H 104 H Pulse Rate [ From Monitor] Respiratory 23 24 20 Rate Blood Pressure 99/48 107/51 107/51 O2 Sat by Pulse 100 100 100 Oximetry 01/20/21 01/20/21 01/20/21 05:20 05:30 05:40 Temperature Pulse Rate 102 H 102 H 95 H Pulse Rate [ From Monitor] Respiratory 21 21 18 Rate Blood Pressure 99/41 98/55 98/55 O2 Sat by Pulse 100 100 100 Oximetry 01/20/21 01/20/21 01/20/21 05:50 06:00 06:10 Temperature Pulse Rate 99 H 102 H 105 H Pulse Rate [ From Monitor] Respiratory 20 22 21 Rate Blood Pressure 120/51 108/51 108/51 O2 Sat by Pulse 100 100 100 Oximetry 01/20/21 01/20/21 01/20/21 06:20 06:30 06:40 Temperature Pulse Rate 104 H 92 H 102 H Pulse Rate [ From Monitor] Respiratory 15 19 22 Rate Blood Pressure 111/61 111/61 95/55 O2 Sat by Pulse 100 100 100 Oximetry 01/20/21 01/20/21 01/20/21 06:50 07:00 07:10 Temperature Pulse Rate 96 H 91 H 101 H Pulse Rate [ From Monitor] Respiratory 23 20 22 Rate Blood Pressure 91/44 96/44 96/44 O2 Sat by Pulse 100 100 100 Oximetry 01/20/21 01/20/21 01/20/21 07:11 07:20 07:30 Temperature Pulse Rate 95 H 100 H 104 H Pulse Rate [ 95 H From Monitor] Respiratory 22 22 17 Rate Blood Pressure 91/44 93/60 O2 Sat by Pulse 100 100 100 Oximetry 01/20/21 01/20/21 01/20/21 07:40 07:50 08:00 Temperature 98.8 F Pulse Rate 102 H 105 H 103 H Pulse Rate [ From Monitor] Respiratory 15 23 13 Rate Blood Pressure 93/60 93/60 93/60 O2 Sat by Pulse 100 100 100 Oximetry 01/20/21 01/20/21 01/20/21 08:10 08:20 08:30 Temperature Pulse Rate 101 H 106 H 106 H Pulse Rate [ From Monitor] Respiratory 27 H 23 20 Rate Blood Pressure 112/65 105/69 123/66 O2 Sat by Pulse 100 100 100 Oximetry 01/20/21 01/20/21 01/20/21 08:40 08:50 09:00 Temperature Pulse Rate 103 H 106 H 105 H Pulse Rate [ From Monitor] Respiratory 24 23 23 Rate Blood Pressure 123/66 112/51 112/51 O2 Sat by Pulse 100 100 100 Oximetry 01/20/21 01/20/21 01/20/21 09:10 09:20 09:30 Temperature Pulse Rate 103 H 105 H 106 H Pulse Rate [ From Monitor] Respiratory 19 15 22 Rate Blood Pressure 125/60 112/51 112/51 O2 Sat by Pulse 100 100 100 Oximetry 01/20/21 01/20/21 01/20/21 09:40 09:44 09:50 Temperature Pulse Rate 94 H 112 H 97 H Pulse Rate [ From Monitor] Respiratory 12 22 Rate Blood Pressure 118/60 118/60 108/60 O2 Sat by Pulse 100 100 Oximetry 01/20/21 01/20/21 01/20/21 10:00 10:10 10:20 Temperature Pulse Rate 109 H 102 H 99 H Pulse Rate [ From Monitor] Respiratory 18 21 14 Rate Blood Pressure 108/60 135/72 108/60 O2 Sat by Pulse 100 100 100 Oximetry 01/20/21 01/20/21 01/20/21 10:30 10:40 10:50 Temperature Pulse Rate 98 H 96 H 95 H Pulse Rate [ From Monitor] Respiratory 22 22 22 Rate Blood Pressure 120/65 120/65 126/67 O2 Sat by Pulse 100 100 100 Oximetry 01/20/21 01/20/21 01/20/21 11:00 11:10 11:18 Temperature 99.4 F Pulse Rate 95 H 93 H Pulse Rate [ From Monitor] Respiratory 23 20 Rate Blood Pressure 126/67 122/65 O2 Sat by Pulse 100 100 Oximetry - General Apperance Constitutional: comfortable - EENT EENT: PERRL, mucous membranes moist - Respiratory Respiratory: lungs clear, normal breath sounds, no respiratory distress, rhonchi - Cardiovascular Cardiovascular: regular rate, normal S1, normal S2 Extremities: no peripheral edema bilat, no clubbing, cyanosis - Gastrointestinal Gastrointestinal: normoactive bowel sounds - Integumentary Integumentary: normal - Neurologic Cranial nerve examination: PERRL, EOMI, intact Detailed motor examination: other (move upper and lower slightly not follow command ) - Laboratory Findings CBC and BMP: 01/18/21 10:20 01/19/21 04:38 Abnormal Lab Findings: Abnormal Labs 01/12/21 01/12/21 01/12/21 14:12 14:36 14:36 WBC 11.2 H Hgb Hct MCV MCH 27 L RDW 21.0 H Plt Count Lymph % (Auto) Lymph # (Auto) Seg Neutrophils % 79.6 H Seg Neutrophils # 8.9 H ABG pH POC ABG pCO2 POC ABG pO2 ABG Hemoglobin ABG Oxyhemoglobin ABG Sodium ABG Potassium ABG Glucose Sodium 136 L Potassium Chloride 95.8 L Carbon Dioxide 19 L BUN Creatinine 2.0 H Glucose 163 H POC Glucose 166 H Calcium 8.2 L Phosphorus Ammonia Total Protein 5.4 L Albumin 3.4 L Arterial Blood Glucose Arterial Blood Ionized Calcium Phenytoin Valproic Acid 01/13/21 01/13/21 01/13/21 05:19 12:14 16:16 WBC Hgb Hct MCV MCH RDW Plt Count Lymph % (Auto) Lymph # (Auto) Seg Neutrophils % Seg Neutrophils # ABG pH POC ABG pCO2 POC ABG pO2 ABG Hemoglobin ABG Oxyhemoglobin ABG Sodium ABG Potassium ABG Glucose Sodium 134 L Potassium Chloride 95.5 L Carbon Dioxide BUN 23 H Creatinine 2.6 H Glucose 168 H POC Glucose 142 H 163 H Calcium Phosphorus Ammonia Total Protein 5.8 L Albumin 3.3 L Arterial Blood Glucose Arterial Blood Ionized Calcium Phenytoin Valproic Acid 01/13/21 01/13/21 01/14/21 20:22 23:57 06:31 WBC Hgb Hct MCV MCH RDW Plt Count Lymph % (Auto) Lymph # (Auto) Seg Neutrophils % Seg Neutrophils # ABG pH POC ABG pCO2 POC ABG pO2 ABG Hemoglobin ABG Oxyhemoglobin ABG Sodium ABG Potassium ABG Glucose Sodium Potassium Chloride Carbon Dioxide BUN Creatinine Glucose POC Glucose 209 H 189 H 236 H Calcium Phosphorus Ammonia Total Protein Albumin Arterial Blood Glucose Arterial Blood Ionized Calcium Phenytoin Valproic Acid 01/14/21 01/14/21 01/14/21 08:57 08:57 12:22 WBC 12.0 H Hgb 11.3 L Hct 34.5 L MCV MCH RDW 20.6 H Plt Count Lymph % (Auto) 6.4 L Lymph # (Auto) 0.8 L Seg Neutrophils % 87.4 H Seg Neutrophils # 10.5 H ABG pH POC ABG pCO2 POC ABG pO2 ABG Hemoglobin ABG Oxyhemoglobin ABG Sodium ABG Potassium ABG Glucose Sodium 131 L Potassium Chloride 93.7 L Carbon Dioxide BUN 37 H Creatinine 3.7 H Glucose 261 H POC Glucose 280 H Calcium Phosphorus Ammonia Total Protein Albumin Arterial Blood Glucose Arterial Blood Ionized Calcium Phenytoin Valproic Acid 01/14/21 01/14/21 01/15/21 16:15 22:28 04:43 WBC Hgb Hct MCV MCH RDW Plt Count Lymph % (Auto) Lymph # (Auto) Seg Neutrophils % Seg Neutrophils # ABG pH POC ABG pCO2 POC ABG pO2 ABG Hemoglobin ABG Oxyhemoglobin ABG Sodium ABG Potassium ABG Glucose Sodium Potassium Chloride Carbon Dioxide BUN Creatinine Glucose POC Glucose 289 H 252 H 243 H Calcium Phosphorus Ammonia Total Protein Albumin Arterial Blood Glucose Arterial Blood Ionized Calcium Phenytoin Valproic Acid 01/15/21 01/15/21 01/15/21 05:22 05:22 08:56 WBC 11.1 H Hgb 11.0 L Hct 33.3 L MCV 83 L MCH 27 L RDW 20.6 H Plt Count Lymph % (Auto) 6.3 L Lymph # (Auto) 0.7 L Seg Neutrophils % 88.2 H Seg Neutrophils # 9.8 H ABG pH POC ABG pCO2 POC ABG pO2 ABG Hemoglobin ABG Oxyhemoglobin ABG Sodium ABG Potassium ABG Glucose Sodium 130 L Potassium Chloride 92.0 L Carbon Dioxide BUN 49 H Creatinine 4.2 H Glucose 241 H POC Glucose Calcium Phosphorus Ammonia Total Protein Albumin Arterial Blood Glucose Arterial Blood Ionized Calcium Phenytoin Valproic Acid 45.9 L 01/15/21 01/15/21 01/15/21 16:42 18:14 23:10 WBC Hgb Hct MCV MCH RDW Plt Count Lymph % (Auto) Lymph # (Auto) Seg Neutrophils % Seg Neutrophils # ABG pH 7.463 H POC ABG pCO2 POC ABG pO2 377.4 H ABG Hemoglobin 11.6 L ABG Oxyhemoglobin 98.6 H ABG Sodium 130.1 L ABG Potassium ABG Glucose 254 H Sodium Potassium Chloride Carbon Dioxide BUN Creatinine Glucose POC Glucose 218 H 279 H Calcium Phosphorus Ammonia Total Protein Albumin Arterial Blood Glucose 254 H Arterial Blood Ionized Calcium 4.5 L Phenytoin Valproic Acid 01/16/21 01/16/21 01/16/21 03:10 05:11 05:17 WBC Hgb 10.4 L Hct 31.8 L MCV MCH 27 L RDW 20.3 H Plt Count 132 L Lymph % (Auto) Lymph # (Auto) Seg Neutrophils % Seg Neutrophils # ABG pH POC ABG pCO2 POC ABG pO2 174.4 H ABG Hemoglobin 10.3 L ABG Oxyhemoglobin 98.6 H ABG Sodium 129.9 L ABG Potassium 3.2 L ABG Glucose 202 H Sodium Potassium Chloride Carbon Dioxide BUN Creatinine Glucose POC Glucose 193 H Calcium Phosphorus Ammonia Total Protein Albumin Arterial Blood Glucose 202 H Arterial Blood Ionized Calcium Phenytoin Valproic Acid 01/16/21 01/16/21 01/16/21 05:17 09:15 11:33 WBC Hgb Hct MCV MCH RDW Plt Count Lymph % (Auto) Lymph # (Auto) Seg Neutrophils % Seg Neutrophils # ABG pH POC ABG pCO2 POC ABG pO2 ABG Hemoglobin ABG Oxyhemoglobin ABG Sodium ABG Potassium ABG Glucose Sodium Potassium 3.4 L Chloride Carbon Dioxide BUN 36 H Creatinine 3.2 H Glucose 216 H POC Glucose 174 H Calcium 8.3 L Phosphorus 1.10 L Ammonia Total Protein Albumin Arterial Blood Glucose Arterial Blood Ionized Calcium Phenytoin 6.5 L Valproic Acid 01/16/21 01/17/21 01/17/21 18:13 00:10 04:00 WBC Hgb Hct MCV MCH RDW Plt Count Lymph % (Auto) Lymph # (Auto) Seg Neutrophils % Seg Neutrophils # ABG pH POC ABG pCO2 POC ABG pO2 ABG Hemoglobin 10.1 L ABG Oxyhemoglobin ABG Sodium 130.1 L ABG Potassium 3.3 L ABG Glucose 153 H Sodium Potassium Chloride Carbon Dioxide BUN Creatinine Glucose POC Glucose 162 H 150 H Calcium Phosphorus Ammonia Total Protein Albumin Arterial Blood Glucose 153 H Arterial Blood Ionized Calcium Phenytoin Valproic Acid 01/17/21 01/17/21 01/17/21 05:30 05:48 11:14 WBC Hgb Hct MCV MCH RDW Plt Count Lymph % (Auto) Lymph # (Auto) Seg Neutrophils % Seg Neutrophils # ABG pH POC ABG pCO2 POC ABG pO2 ABG Hemoglobin ABG Oxyhemoglobin ABG Sodium ABG Potassium ABG Glucose Sodium 136 L Potassium 3.5 L Chloride Carbon Dioxide BUN 48 H Creatinine 3.5 H Glucose 165 H POC Glucose 149 H Calcium 8.0 L Phosphorus 0.80 L* D Ammonia 22.0 L Total Protein Albumin Arterial Blood Glucose Arterial Blood Ionized Calcium Phenytoin Valproic Acid 01/17/21 01/17/21 01/17/21 11:43 17:34 18:46 WBC Hgb Hct MCV MCH RDW Plt Count Lymph % (Auto) Lymph # (Auto) Seg Neutrophils % Seg Neutrophils # ABG pH POC ABG pCO2 POC ABG pO2 ABG Hemoglobin ABG Oxyhemoglobin ABG Sodium ABG Potassium ABG Glucose Sodium Potassium Chloride Carbon Dioxide BUN Creatinine Glucose POC Glucose 160 H 209 H Calcium Phosphorus 2.20 L D Ammonia Total Protein Albumin Arterial Blood Glucose Arterial Blood Ionized Calcium Phenytoin Valproic Acid 01/17/21 01/17/21 01/18/21 19:00 23:19 03:28 WBC Hgb Hct MCV MCH RDW Plt Count Lymph % (Auto) Lymph # (Auto) Seg Neutrophils % Seg Neutrophils # ABG pH POC ABG pCO2 POC ABG pO2 190.2 H ABG Hemoglobin 11.9 L ABG Oxyhemoglobin 98.5 H ABG Sodium 130.9 L 131.0 L ABG Potassium 3.0 L 2.8 L ABG Glucose 241 H Sodium Potassium Chloride Carbon Dioxide BUN Creatinine Glucose POC Glucose 222 H Calcium Phosphorus Ammonia Total Protein Albumin Arterial Blood Glucose 241 H Arterial Blood Ionized Calcium 4.5 L Phenytoin Valproic Acid 01/18/21 01/18/21 01/18/21 04:16 06:20 10:20 WBC 14.1 H Hgb 11.2 L Hct 34.5 L MCV 83 L MCH 27 L RDW 20.8 H Plt Count 116 L Lymph % (Auto) Lymph # (Auto) Seg Neutrophils % Seg Neutrophils # ABG pH POC ABG pCO2 POC ABG pO2 ABG Hemoglobin ABG Oxyhemoglobin ABG Sodium ABG Potassium ABG Glucose Sodium 134 L Potassium 2.9 L* Chloride Carbon Dioxide 21 L BUN 60 H Creatinine 3.9 H Glucose POC Glucose 69 L Calcium Phosphorus 1.60 L D Ammonia Total Protein Albumin Arterial Blood Glucose Arterial Blood Ionized Calcium Phenytoin Valproic Acid 01/18/21 01/18/21 01/18/21 11:29 15:30 17:23 WBC Hgb Hct MCV MCH RDW Plt Count Lymph % (Auto) Lymph # (Auto) Seg Neutrophils % Seg Neutrophils # ABG pH POC ABG pCO2 POC ABG pO2 ABG Hemoglobin ABG Oxyhemoglobin ABG Sodium ABG Potassium ABG Glucose Sodium Potassium 3.3 L Chloride Carbon Dioxide BUN 42 H Creatinine 3.1 H Glucose 190 H POC Glucose 128 H 167 H Calcium 8.2 L Phosphorus 1.10 L D Ammonia Total Protein Albumin Arterial Blood Glucose Arterial Blood Ionized Calcium Phenytoin Valproic Acid 01/18/21 01/19/21 01/19/21 23:43 03:43 04:38 WBC Hgb Hct MCV MCH RDW Plt Count Lymph % (Auto) Lymph # (Auto) Seg Neutrophils % Seg Neutrophils # ABG pH 7.536 H POC ABG pCO2 27.0 L POC ABG pO2 165.8 H ABG Hemoglobin 10.7 L ABG Oxyhemoglobin 98.4 H ABG Sodium 131.3 L ABG Potassium ABG Glucose 152 H Sodium Potassium Chloride Carbon Dioxide BUN 55 H Creatinine 3.8 H Glucose 143 H POC Glucose 232 H Calcium Phosphorus 1.10 L Ammonia Total Protein Albumin Arterial Blood Glucose 152 H Arterial Blood Ionized Calcium Phenytoin Valproic Acid 01/19/21 01/19/21 01/19/21 05:12 11:36 15:16 WBC Hgb Hct MCV MCH RDW Plt Count Lymph % (Auto) Lymph # (Auto) Seg Neutrophils % Seg Neutrophils # ABG pH POC ABG pCO2 POC ABG pO2 ABG Hemoglobin ABG Oxyhemoglobin ABG Sodium ABG Potassium ABG Glucose Sodium Potassium Chloride Carbon Dioxide BUN Creatinine Glucose POC Glucose 135 H 201 H Calcium Phosphorus 1.10 L Ammonia Total Protein Albumin Arterial Blood Glucose Arterial Blood Ionized Calcium Phenytoin Valproic Acid 01/19/21 01/19/21 01/20/21 17:55 23:22 04:00 WBC Hgb Hct MCV MCH RDW Plt Count Lymph % (Auto) Lymph # (Auto) Seg Neutrophils % Seg Neutrophils # ABG pH 7.513 H POC ABG pCO2 POC ABG pO2 ABG Hemoglobin 9.9 L ABG Oxyhemoglobin ABG Sodium 129.4 L ABG Potassium ABG Glucose 196 H Sodium Potassium Chloride Carbon Dioxide BUN Creatinine Glucose POC Glucose 222 H 252 H Calcium Phosphorus Ammonia Total Protein Albumin Arterial Blood Glucose 196 H Arterial Blood Ionized Calcium Phenytoin Valproic Acid 01/20/21 01/20/21 05:15 11:15 WBC Hgb Hct MCV MCH RDW Plt Count Lymph % (Auto) Lymph # (Auto) Seg Neutrophils % Seg Neutrophils # ABG pH POC ABG pCO2 POC ABG pO2 ABG Hemoglobin ABG Oxyhemoglobin ABG Sodium ABG Potassium ABG Glucose Sodium Potassium Chloride Carbon Dioxide BUN Creatinine Glucose POC Glucose 163 H 149 H Calcium Phosphorus Ammonia Total Protein Albumin Arterial Blood Glucose Arterial Blood Ionized Calcium Phenytoin Valproic Acid
[2021-01-20 15:38] LABS: Hematocrit 30.3 % (35.5-45.6); Hemoglobin 9.9 gm/dl (11.8-15.2); Mean Corpuscular HGB Conc 33 % (32-34); Mean Corpuscular Volume 82 fl (84-94); Platelet Count 114 K/mm3 (140-440); Red Blood Count 3.69 M/mm3 (3.65-5.03)
[2021-01-20 15:42] LABS: Calcium 8.5 mg/dL (8.4-10.2)
[2021-01-20 15:44] LABS: Red Cell Distribution Width 20.7 % (13.2-15.2)
[2021-01-20] MEDS ORDERED: SODIUM PHOSPHATE 30 MMOL in SODIUM CHLORIDE 0.9% 500 ML 500 ML IV ONE (17:00)
[2021-01-20] MEDS ORDERED: CEFEPIME/NS 1 GM/100 ML 1 GM/100 ML BAG IV SCH (18:00)
[2021-01-21] MEDS: INSULIN LISPRO 100 UNIT/ML SUB-Q SCH ×4 (00:55→18:14)
[2021-01-21] MEDS: VALPROATE SODIUM 500 MG in SODIUM CHLORIDE 0.9% 100 ML IV SCH ×2 (07:02→18:20)
[2021-01-21 07:48] LABS: Hematocrit 29.7 % (35.5-45.6); Hemoglobin 9.6 gm/dl (11.8-15.2); Mean Corpuscular HGB Conc 32 % (32-34); Mean Corpuscular Volume 82 fl (84-94); Platelet Count 126 K/mm3 (140-440); Red Blood Count 3.62 M/mm3 (3.65-5.03)
[2021-01-21 07:53] LABS: Red Cell Distribution Width 21.4 % (13.2-15.2)
[2021-01-21 08:01] LABS: Calcium 8.9 mg/dL (8.4-10.2)
[2021-01-21] MEDS: LINAGLIPTIN 5 MG TAB PO SCH (08:32)
[2021-01-21] MEDS: LANSOPRAZOLE 30 MG SOLUTAB FEEDTUBE SCH ×2 (09:07→21:31)
[2021-01-21] MEDS: CALCITRIOL 0.5 MCG CAP PO SCH (09:07)
[2021-01-21] MEDS: DOXAZOSIN 1 MG TAB PO SCH (09:07)
[2021-01-21] MEDS: TIMOLOL 0.5% OPHTH SOLN 5 ML OU SCH (09:08)
--- NOTE | 2021-01-21 09:46 | Progress Note ---
Assessment and Plan 1.ESRD: Patient is on maintenance hemodialysis three times a week, TTS schedule. Last outpatient HD 01/12/2021. Meds dosage based on GFR. Hemodialysis: 01/15, 01/16, 01/17(UF), 01/18. 2. FEN: Volume overload, UF with HD. Hyponatremia, improved, monitor. Replete Phos as needed. Monitor lytes and volume status. 3. Acute resp failure: Currently intubated, on vent. Extubated 01/17. Re-intubated 01/17. Wean as tolerated. 4. Shock: Off pressors. Monitor. 5. New onset of possible witnessed seizure during dialysis: CT brain remarkable for white matter changes. MRI brain: small SDH, chronic changes. Valproate and Keppra. Seizure precaution. Followed by Neuro. 6. Advanced dementia: CT white matter changes. 7. Failure to thrive: PEG tube. 8. Anemia, POA: Epogen with HD. 9. DM type 2. 10. Acute metabolic encephalopathy: Followed by Neuro. Subjective: Patient was seen and examined at the bedside. Examination: General appearance: well-developed, appears stated age, no distress, intubated, on vent HEENT: ATNC, CELINA Neck: Trachea midline Respiratory: ctab Cardiology: regular, S1S2, no murmur Abdomen: soft, not tender, BS heard, Peg tube noted Integumentary: warm, dry, no obvious rash Neurologic: not responding Ext: no edema noted Hemodialysis catheter: R IJ tunnel catheter Subjective Date of service: 01/21/21 Principal diagnosis: witnessed seizure hx of ESRD ,hyponatremia Objective - Vital Signs Vital signs: Vital Signs - 12hr 01/20/21 01/20/21 01/20/21 21:50 22:00 22:10 Temperature 98.7 F Pulse Rate 90 93 H 89 Pulse Rate [ From Monitor] Respiratory 17 18 14 Rate Blood Pressure 133/68 128/70 128/70 O2 Sat by Pulse 100 98 100 Oximetry 01/20/21 01/20/21 01/20/21 22:20 22:30 22:31 Temperature Pulse Rate 93 H 93 H 87 Pulse Rate [ From Monitor] Respiratory 21 20 17 Rate Blood Pressure 125/69 128/72 128/72 O2 Sat by Pulse 100 98 100 Oximetry 07/18/21 07/18/21 07/18/21 22:40 22:50 23:00 Temperature Pulse Rate 91 H 94 H 91 H Pulse Rate [ From Monitor] Respiratory 21 24 23 Rate Blood Pressure 125/69 134/69 124/67 O2 Sat by Pulse 100 100 98 Oximetry 01/20/21 01/20/21 01/20/21 23:03 23:10 23:20 Temperature Pulse Rate 91 H 86 93 H Pulse Rate [ From Monitor] Respiratory 23 16 18 Rate Blood Pressure 124/67 128/72 121/70 O2 Sat by Pulse 100 100 100 Oximetry 01/20/21 01/20/21 01/20/21 23:30 23:40 23:50 Temperature Pulse Rate 88 89 92 H Pulse Rate [ From Monitor] Respiratory 14 22 14 Rate Blood Pressure 121/62 121/70 123/62 O2 Sat by Pulse 98 100 100 Oximetry 01/21/21 01/21/21 01/21/21 00:00 00:10 00:20 Temperature 98.0 F Pulse Rate 88 93 H 91 H Pulse Rate [ 91 H From Monitor] Respiratory 20 17 18 Rate Blood Pressure 123/62 120/66 129/73 O2 Sat by Pulse 100 100 100 Oximetry 01/21/21 01/21/21 01/21/21 00:30 00:40 00:50 Temperature Pulse Rate 85 84 92 H Pulse Rate [ From Monitor] Respiratory 20 22 15 Rate Blood Pressure 129/73 121/70 115/63 O2 Sat by Pulse 100 100 100 Oximetry 01/21/21 01/21/21 01/21/21 01:00 01:10 01:20 Temperature Pulse Rate 93 H 86 93 H Pulse Rate [ From Monitor] Respiratory 22 19 19 Rate Blood Pressure 115/63 127/64 140/101 O2 Sat by Pulse 100 100 100 Oximetry 01/21/21 01/21/21 01/21/21 01:30 01:40 01:50 Temperature Pulse Rate 93 H 90 90 Pulse Rate [ From Monitor] Respiratory 17 22 22 Rate Blood Pressure 140/101 132/65 137/68 O2 Sat by Pulse 100 100 100 Oximetry 01/21/21 01/21/21 01/21/21 02:00 02:10 02:20 Temperature Pulse Rate 90 87 90 Pulse Rate [ From Monitor] Respiratory 14 21 18 Rate Blood Pressure 136/61 136/61 125/63 O2 Sat by Pulse 98 100 100 Oximetry 01/21/21 01/21/21 01/21/21 02:30 02:40 02:50 Temperature Pulse Rate 93 H 90 92 H Pulse Rate [ From Monitor] Respiratory 15 17 21 Rate Blood Pressure 125/63 124/74 129/78 O2 Sat by Pulse 100 100 100 Oximetry 01/21/21 01/21/21 01/21/21 03:00 03:05 03:10 Temperature Pulse Rate 96 H 89 88 Pulse Rate [ From Monitor] Respiratory 20 12 21 Rate Blood Pressure 129/78 127/62 127/62 O2 Sat by Pulse 100 100 100 Oximetry 01/21/21 01/21/21 01/21/21 03:20 03:30 03:40 Temperature Pulse Rate 93 H 91 H 90 Pulse Rate [ From Monitor] Respiratory 21 12 19 Rate Blood Pressure 124/69 128/67 128/67 O2 Sat by Pulse 100 98 100 Oximetry 01/21/21 01/21/21 01/21/21 03:46 03:50 04:00 Temperature 97.9 F Pulse Rate 94 H 88 Pulse Rate [ 88 From Monitor] Respiratory 16 17 Rate Blood Pressure 128/68 138/63 O2 Sat by Pulse 100 98 Oximetry 01/21/21 01/21/21 01/21/21 04:10 04:20 04:30 Temperature Pulse Rate 90 93 H 95 H Pulse Rate [ From Monitor] Respiratory 17 12 22 Rate Blood Pressure 138/63 131/61 131/61 O2 Sat by Pulse 100 99 100 Oximetry 01/21/21 01/21/21 01/21/21 04:40 04:50 05:00 Temperature Pulse Rate 86 95 H 93 H Pulse Rate [ From Monitor] Respiratory 15 18 20 Rate Blood Pressure 167/68 131/61 140/74 O2 Sat by Pulse 100 100 99 Oximetry 01/21/21 01/21/21 01/21/21 05:10 05:20 05:30 Temperature Pulse Rate 94 H 94 H 91 H Pulse Rate [ From Monitor] Respiratory 16 18 19 Rate Blood Pressure 140/74 139/53 139/53 O2 Sat by Pulse 100 100 100 Oximetry 01/21/21 01/21/21 01/21/21 05:40 05:50 06:00 Temperature Pulse Rate 89 92 H 92 H Pulse Rate [ From Monitor] Respiratory 18 15 14 Rate Blood Pressure 133/61 136/65 136/65 O2 Sat by Pulse 100 100 100 Oximetry 01/21/21 01/21/21 01/21/21 06:10 06:20 06:30 Temperature Pulse Rate 92 H 94 H 92 H Pulse Rate [ From Monitor] Respiratory 14 26 H 17 Rate Blood Pressure 147/66 136/65 141/72 O2 Sat by Pulse 100 100 98 Oximetry 01/21/21 01/21/21 01/21/21 06:40 06:50 07:00 Temperature Pulse Rate 80 89 93 H Pulse Rate [ From Monitor] Respiratory 15 19 14 Rate Blood Pressure 141/72 147/74 147/74 O2 Sat by Pulse 100 100 100 Oximetry 01/21/21 01/21/21 01/21/21 07:06 07:10 07:20 Temperature 97.5 F L Pulse Rate 97 H 92 H Pulse Rate [ 94 H From Monitor] Respiratory 22 17 Rate Blood Pressure 140/68 142/72 O2 Sat by Pulse 100 100 Oximetry 01/21/21 01/21/21 01/21/21 07:27 07:30 07:40 Temperature Pulse Rate 93 H 92 H 97 H Pulse Rate [ From Monitor] Respiratory 13 16 Rate Blood Pressure 146/71 146/71 146/71 O2 Sat by Pulse 100 98 100 Oximetry 01/21/21 01/21/21 01/21/21 07:50 08:00 08:10 Temperature Pulse Rate 93 H 89 89 Pulse Rate [ From Monitor] Respiratory 14 21 14 Rate Blood Pressure 120/63 114/57 114/57 O2 Sat by Pulse 98 97 100 Oximetry 01/21/21 01/21/21 01/21/21 08:20 08:30 08:40 Temperature Pulse Rate 89 94 H 90 Pulse Rate [ From Monitor] Respiratory 14 26 H 20 Rate Blood Pressure 121/67 121/67 125/52 O2 Sat by Pulse 100 100 100 Oximetry 01/21/21 01/21/21 01/21/21 08:50 09:00 09:07 Temperature Pulse Rate 91 H 90 91 H Pulse Rate [ From Monitor] Respiratory 16 17 Rate Blood Pressure 127/60 125/66 125/66 O2 Sat by Pulse 100 97 Oximetry - Lab 01/21/21 06:39 01/21/21 06:39 Most recent lab results ABG pH 7.513 (7.320-7.450) H 01/20/21 04:00 ABG O2 Saturation 98.1 (0-100) 01/20/21 04:00 Calcium 8.9 mg/dL (8.4-10.2) 01/21/21 06:39 Phosphorus 2.30 mg/dL (2.5-4.5) L D 01/21/21 06:39 Magnesium 1.80 mg/dL (1.7-2.3) 01/21/21 06:39 Medications & Allergies - Medications Allergies/Adverse Reactions: Allergies No Known Allergies Allergy (Verified 08/14/19 16:11) Home Medications: Home Medications Medication Instructions Recorded Confirmed Last Taken Type Alogliptin Benzoate [Alogliptin] 1 tab PO DAILY 10/02/20 10/25/20 Unknown History Sevelamer Carbonate [Renvela] 800 mg PO TIDWM 10/02/20 10/25/20 Unknown History buprenorphine hcl [Subutex] 2 mg SL QDAY PRN 10/02/20 10/25/20 Unknown History AtorvaSTATin [Lipitor] 40 mg PO QHS #30 10/11/20 10/25/20 Unknown Rx Docusate Sodium [Colace CAP] 100 mg PO BID PRN #60 cap 10/11/20 10/25/20 Unknown Rx Doxazosin [Cardura] 4 mg PO QDAY #30 10/11/20 10/25/20 Unknown Rx Febuxostat 40 mg PO QDAY #30 10/11/20 10/25/20 Unknown Rx Ketotifen Fumarate 1 drop OU QDAY #1 bottle 10/11/20 10/25/20 Unknown Rx Lansoprazole Solutab [Prevacid 30 mg FEEDTUBE BID #60 tab.rapdis 10/11/20 10/25/20 Unknown Rx Solutab] Megestrol Acetate 40 mg PO QDAY #30 10/11/20 10/25/20 Unknown Rx Metoprolol [Lopressor TAB] 12.5 mg PO BID #60 tablet 10/11/20 10/25/20 Unknown Rx calcitrioL [Rocaltrol] 1 mcg PO QDAY #30 cap 10/11/20 10/25/20 Unknown Rx timoloL maleate [Timolol Maleate 1 drop OP BID #1 bottle 10/11/20 10/25/20 Unknown Rx 0.25%] Active Medications: Generic Name Dose Route Start Last Admin Trade Name Freq PRN Reason Stop Dose Admin Acetaminophen 650 mg 01/12/21 19:30 Acetaminophen 325 Mg Tab PO Q4H PRN Pain MILD(1-3)/Fever >100.5/ABEL Albuterol 2.5 mg 01/12/21 19:30 Albuterol 2.5 Mg/3 Ml Nebu IH Q4HRT PRN Shortness Of Breath Lipase/Protease/Amylase 1 each 01/13/21 10:11 Lipase 10,500/Protease 25,000/Amylase 43,750 (Units) Dr Cap FEEDTUBE PRN PRN For Clogged Feeding Tube Atorvastatin Calcium 40 mg 01/12/21 22:00 01/20/21 21:39 Atorvastatin 40 Mg Tab PO 40 mg QHS NOLAN Administration Calcitriol 1 mcg 01/13/21 10:00 01/21/21 09:07 Calcitriol 0.5 Mcg Cap PO 1 mcg QDAY NOLAN Administration Docusate Sodium 100 mg 01/17/21 09:00 Docusate Sodium 100 Mg/10 Ml Oral Liqd PO BID PRN Constipation Doxazosin Mesylate 2 mg 01/18/21 10:00 01/21/21 09:07 Doxazosin 1 Mg Tab PO 2 mg QDAY NOLAN Administration Fentanyl 25 mcg 01/17/21 18:10 Fentanyl 100 Mcg/2 Ml Inj IV Q2HR PRN Pain , Severe (7-10) Hydrophilic Ointment 1 applic 01/15/21 17:14 Lip Therapy Vaseline TP Q2HR PRN Dry Lips Valproate Sodium 500 mg/ 105 mls @ 100 mls/hr 01/14/21 22:00 01/21/21 07:02 Sodium Chloride IV 100 mls/hr Q8H NOLAN Administration Sodium Chloride 100 mls @ 999 mls/hr 01/15/21 08:00 Nacl 0.9% IV DIONNA PRN Hypotension Norepinephrine 4 mg in 250 mls @ 7.5 mls/hr 01/15/21 19:00 01/16/21 09:15 Levophed Drip 4 Mg/Ns 250 Ml IV 0 mcg/min TITR NOLAN 0 mls/hr Titration Protocol 2 MCG/MIN Levetiracetam 250 mg/ Dextrose 52.5 mls @ 200 mls/hr 01/20/21 13:00 01/20/21 13:30 IV 200 mls/hr DAILY NOLAN Administration Levofloxacin/Dextrose 500 mg in 100 mls @ 100 mls/hr 01/22/21 15:00 Levaquin 500mg/100ml IV 02/01/21 15:59 Q48H NOLAN Protocol Insulin Human Lispro 0 unit 01/16/21 00:00 01/21/21 07:02 Insulin Lispro 100 Unit/Ml SUB-Q 1 unit Q6HR NOLAN Administration Protocol Lansoprazole 30 mg 01/12/21 22:00 01/21/21 09:07 Lansoprazole 30 Mg Solutab FEEDTUBE 30 mg BID NOLAN Administration Linagliptin 5 mg 01/13/21 11:00 01/21/21 08:32 Linagliptin 5 Mg Tab PO 5 mg QDDIAB NOLAN Administration Multi-Ingred Cream/Lotion/Oil/Oint 1 applic 01/15/21 17:14 Mineral Oil/Petrolatum, White Ophth Oint 3.5 Gm OU Q4HR PRN Dry Eye(s) Ondansetron HCl 4 mg 01/12/21 19:30 Ondansetron 4 Mg/2 Ml Inj IV Q8H PRN Nausea And Vomiting Simple Syrup 15 ml 01/13/21 10:11 01/18/21 06:54 Simple Syrup 15 Ml FEEDTUBE 15 ml PRN PRN Administration Hypoglycemia Simple Syrup 30 ml 01/13/21 10:11 Simple Syrup 15 Ml FEEDTUBE PRN PRN Hypoglycemia Sodium Bicarbonate 325 mg 01/13/21 10:11 Sodium Bicarbonate 325 Mg Tab FEEDTUBE PRN PRN For Clogged Feeding Tube Sodium Chloride 10 ml 01/12/21 22:00 01/21/21 09:07 Sodium Chloride 0.9% 10 Ml Flush Syringe IV 10 ml BID NOLAN Administration Sodium Chloride 10 ml 01/12/21 19:30 Sodium Chloride 0.9% 10 Ml Flush Syringe IV PRN PRN LINE FLUSH Timolol Maleate 1 drops 01/17/21 10:00 01/21/21 09:08 Timolol 0.5% Ophth Soln 5 Ml OU 1 drops QDAY NOLAN Administration
[2021-01-21] MEDS: levETIRAcetam 250 MG in DEXTROSE 5% IN WATER (50 ML) 50 ML IV SCH (09:47)
--- NOTE | 2021-01-21 11:47 | Progress Note ---
Assessment and Plan 80 y/o with chronic seizure disorder, ESRD, HTN admitted with status epilepticus, requiring intubation for burst suppression. 01/21/21: FiO2 now down to 30%. RT to attempt PSV today to see how patient tolerates. Not a candidate for extubation given his current mental state. Neuro did decrease meds more on yesterday Keppra daily and BID Valproic Acid. Will call family to update on current level of care. Overall prognosis remains guarded to poor. Will get Head CT today to rule out any new areas of ischemia or bleeding. 01/20/21: FiO2 stable on 45%. Hold on repeat Imaging for now. Will hold on Flumazenil therapy given his prior history of seizure. May need more HD tomorrow. Spoke with Daughter and over the phone to update and they asked me to call them again tomorrow. Will tell them that visiting hours are present if they choose to come. Guarded prognosis. 01/19/21: Dropped FiO2 to 45%. Await neurology eval today but need to consider repeat imaging of head as I have not explanation as to why patient is not responsive. Patient does not make any urine so not able to send UDS. Had HD on yesterday so next one would likely be Thursday. Renal to address electrolytes. Very very guarded prognosis. 01/18/21: EEG not officially read, but prelim is negative for seizures, just diffuse slowing. ABG is stable, not hypercapnic. Will send UDS to see if benzos are still in system. spoke with renal who will do HD today and manage electrolytes. DId order mag level given low levels of potassium. Overall prog nosis is very guarded to poor. If not more responsive tomorrow, may need to consider repeat imaging of head/brain. 01/17/21: Extubate. HD today per renal. If tolerates both, transfer back to floor on new anti-epileptic regimen 1. Continue Versed at 3mg IV per Hour for the next 24 hours. 2. Repeat EEG tomorrow off Versed. 3. Will attempt to get this before HD tomorrow. 4. HD per renal, tomorrow as patient got HD yesterday CCT 31 minutes. Subjective Date of service: 01/21/21 Principal diagnosis: witnessed seizure hx of ESRD ,hyponatremia Interval history: No acute events. Clinically unchanged. Per renal, HD tomorrow. Attempted to get urine for repeat HD but unable. Objective Vital Signs - 12hr 01/20/21 01/21/21 01/21/21 23:50 00:00 00:10 Temperature 98.0 F Pulse Rate 92 H 88 93 H Pulse Rate [ 91 H From Monitor] Respiratory 14 20 17 Rate Blood Pressure 123/62 123/62 120/66 O2 Sat by Pulse 100 100 100 Oximetry 01/21/21 01/21/21 01/21/21 00:20 00:30 00:40 Temperature Pulse Rate 91 H 85 84 Pulse Rate [ From Monitor] Respiratory 18 20 22 Rate Blood Pressure 129/73 129/73 121/70 O2 Sat by Pulse 100 100 100 Oximetry 01/21/21 01/21/21 01/21/21 00:50 01:00 01:10 Temperature Pulse Rate 92 H 93 H 86 Pulse Rate [ From Monitor] Respiratory 15 22 19 Rate Blood Pressure 115/63 115/63 127/64 O2 Sat by Pulse 100 100 100 Oximetry 01/21/21 01/21/21 01/21/21 01:20 01:30 01:40 Temperature Pulse Rate 93 H 93 H 90 Pulse Rate [ From Monitor] Respiratory 19 17 22 Rate Blood Pressure 140/101 140/101 132/65 O2 Sat by Pulse 100 100 100 Oximetry 01/21/21 01/21/21 01/21/21 01:50 02:00 02:10 Temperature Pulse Rate 90 90 87 Pulse Rate [ From Monitor] Respiratory 22 14 21 Rate Blood Pressure 137/68 136/61 136/61 O2 Sat by Pulse 100 98 100 Oximetry 01/21/21 01/21/21 01/21/21 02:20 02:30 02:40 Temperature Pulse Rate 90 93 H 90 Pulse Rate [ From Monitor] Respiratory 18 15 17 Rate Blood Pressure 125/63 125/63 124/74 O2 Sat by Pulse 100 100 100 Oximetry 01/21/21 01/21/21 01/21/21 02:50 03:00 03:05 Temperature Pulse Rate 92 H 96 H 89 Pulse Rate [ From Monitor] Respiratory 21 20 12 Rate Blood Pressure 129/78 129/78 127/62 O2 Sat by Pulse 100 100 100 Oximetry 01/21/21 01/21/21 01/21/21 03:10 03:20 03:30 Temperature Pulse Rate 88 93 H 91 H Pulse Rate [ From Monitor] Respiratory 21 21 12 Rate Blood Pressure 127/62 124/69 128/67 O2 Sat by Pulse 100 100 98 Oximetry 01/21/21 01/21/21 01/21/21 03:40 03:46 03:50 Temperature 97.9 F Pulse Rate 90 94 H Pulse Rate [ From Monitor] Respiratory 19 16 Rate Blood Pressure 128/67 128/68 O2 Sat by Pulse 100 100 Oximetry 01/21/21 01/21/21 01/21/21 04:00 04:10 04:20 Temperature Pulse Rate 88 90 93 H Pulse Rate [ 88 From Monitor] Respiratory 17 17 12 Rate Blood Pressure 138/63 138/63 131/61 O2 Sat by Pulse 98 100 99 Oximetry 01/21/21 01/21/21 01/21/21 04:30 04:40 04:50 Temperature Pulse Rate 95 H 86 95 H Pulse Rate [ From Monitor] Respiratory 22 15 18 Rate Blood Pressure 131/61 167/68 131/61 O2 Sat by Pulse 100 100 100 Oximetry 01/21/21 01/21/21 01/21/21 05:00 05:10 05:20 Temperature Pulse Rate 93 H 94 H 94 H Pulse Rate [ From Monitor] Respiratory 20 16 18 Rate Blood Pressure 140/74 140/74 139/53 O2 Sat by Pulse 99 100 100 Oximetry 01/21/21 01/21/21 01/21/21 05:30 05:40 05:50 Temperature Pulse Rate 91 H 89 92 H Pulse Rate [ From Monitor] Respiratory 19 18 15 Rate Blood Pressure 139/53 133/61 136/65 O2 Sat by Pulse 100 100 100 Oximetry 01/21/21 01/21/21 01/21/21 06:00 06:10 06:20 Temperature Pulse Rate 92 H 92 H 94 H Pulse Rate [ From Monitor] Respiratory 14 14 26 H Rate Blood Pressure 136/65 147/66 136/65 O2 Sat by Pulse 100 100 100 Oximetry 01/21/21 01/21/21 01/21/21 06:30 06:40 06:50 Temperature Pulse Rate 92 H 80 89 Pulse Rate [ From Monitor] Respiratory 17 15 19 Rate Blood Pressure 141/72 141/72 147/74 O2 Sat by Pulse 98 100 100 Oximetry 01/21/21 01/21/21 01/21/21 07:00 07:06 07:10 Temperature 97.5 F L Pulse Rate 93 H 97 H Pulse Rate [ 94 H From Monitor] Respiratory 14 22 Rate Blood Pressure 147/74 140/68 O2 Sat by Pulse 100 100 Oximetry 01/21/21 01/21/21 01/21/21 07:20 07:27 07:30 Temperature Pulse Rate 92 H 93 H 92 H Pulse Rate [ From Monitor] Respiratory 17 13 Rate Blood Pressure 142/72 146/71 146/71 O2 Sat by Pulse 100 100 98 Oximetry 01/21/21 01/21/21 01/21/21 07:40 07:50 08:00 Temperature Pulse Rate 97 H 93 H 89 Pulse Rate [ From Monitor] Respiratory 16 14 21 Rate Blood Pressure 146/71 120/63 114/57 O2 Sat by Pulse 100 98 97 Oximetry 01/21/21 01/21/21 01/21/21 08:10 08:20 08:30 Temperature Pulse Rate 89 89 94 H Pulse Rate [ From Monitor] Respiratory 14 14 26 H Rate Blood Pressure 114/57 121/67 121/67 O2 Sat by Pulse 100 100 100 Oximetry 01/21/21 01/21/21 01/21/21 08:40 08:50 09:00 Temperature Pulse Rate 90 91 H 90 Pulse Rate [ From Monitor] Respiratory 20 16 17 Rate Blood Pressure 125/52 127/60 125/66 O2 Sat by Pulse 100 100 97 Oximetry 01/21/21 01/21/21 01/21/21 09:07 09:10 09:20 Temperature Pulse Rate 91 H 90 90 Pulse Rate [ From Monitor] Respiratory 16 19 Rate Blood Pressure 125/66 125/66 124/72 O2 Sat by Pulse 99 99 Oximetry 01/21/21 01/21/21 01/21/21 09:30 09:40 09:50 Temperature Pulse Rate 88 87 88 Pulse Rate [ From Monitor] Respiratory 16 12 15 Rate Blood Pressure 127/60 119/68 125/67 O2 Sat by Pulse 99 99 99 Oximetry 01/21/21 01/21/21 01/21/21 10:00 10:10 10:20 Temperature Pulse Rate 86 91 H 86 Pulse Rate [ From Monitor] Respiratory 15 13 16 Rate Blood Pressure 127/62 127/62 118/64 O2 Sat by Pulse 98 100 100 Oximetry 01/21/21 01/21/21 01/21/21 10:30 10:40 10:50 Temperature Pulse Rate 92 H 90 88 Pulse Rate [ From Monitor] Respiratory 18 19 14 Rate Blood Pressure 127/62 124/80 121/72 O2 Sat by Pulse 100 100 100 Oximetry 01/21/21 01/21/21 01/21/21 11:00 11:10 11:20 Temperature Pulse Rate 87 84 86 Pulse Rate [ From Monitor] Respiratory 22 23 26 H Rate Blood Pressure 129/71 129/71 136/70 O2 Sat by Pulse 99 100 100 Oximetry Constitutional: no acute distress, comatose (secondary to meds for seizure) ENT: other (orally intubated and sedated) Neck: supple Effort: normal Ascultation: Bilateral: clear Cardiovascular: regular rate and rhythm Gastrointestinal: normoactive bowel sounds Integumentary: normal Extremities: no edema, pulses normal CBC and BMP: 01/21/21 06:39 01/21/21 06:39 ABG, PT/INR, D-dimer: ABG ABG pH 7.513 (7.320-7.450) H 01/20/21 04:00 POC ABG pCO2 33.2 mmHg (32.0-48.0) 01/20/21 04:00 POC ABG pO2 97.9 mmHg (83-108) 01/20/21 04:00 POC ABG HCO3 26.1 01/20/21 04:00 ABG O2 Saturation 98.1 (0-100) 01/20/21 04:00 Abnormal lab findings: Abnormal Labs 01/12/21 01/12/21 01/12/21 14:12 14:36 14:36 WBC 11.2 H RBC Hgb Hct MCV MCH 27 L RDW 21.0 H Plt Count Lymph % (Auto) Lymph # (Auto) Seg Neutrophils % 79.6 H Seg Neutrophils # 8.9 H ABG pH POC ABG pCO2 POC ABG pO2 ABG Hemoglobin ABG Oxyhemoglobin ABG Sodium ABG Potassium ABG Glucose Sodium 136 L Potassium Chloride 95.8 L Carbon Dioxide 19 L BUN Creatinine 2.0 H Glucose 163 H POC Glucose 166 H Calcium 8.2 L Phosphorus Ammonia Total Protein 5.4 L Albumin 3.4 L Arterial Blood Glucose Arterial Blood Ionized Calcium Phenytoin Valproic Acid 01/13/21 01/13/21 01/13/21 05:19 12:14 16:16 WBC RBC Hgb Hct MCV MCH RDW Plt Count Lymph % (Auto) Lymph # (Auto) Seg Neutrophils % Seg Neutrophils # ABG pH POC ABG pCO2 POC ABG pO2 ABG Hemoglobin ABG Oxyhemoglobin ABG Sodium ABG Potassium ABG Glucose Sodium 134 L Potassium Chloride 95.5 L Carbon Dioxide BUN 23 H Creatinine 2.6 H Glucose 168 H POC Glucose 142 H 163 H Calcium Phosphorus Ammonia Total Protein 5.8 L Albumin 3.3 L Arterial Blood Glucose Arterial Blood Ionized Calcium Phenytoin Valproic Acid 01/13/21 01/13/21 01/14/21 20:22 23:57 06:31 WBC RBC Hgb Hct MCV MCH RDW Plt Count Lymph % (Auto) Lymph # (Auto) Seg Neutrophils % Seg Neutrophils # ABG pH POC ABG pCO2 POC ABG pO2 ABG Hemoglobin ABG Oxyhemoglobin ABG Sodium ABG Potassium ABG Glucose Sodium Potassium Chloride Carbon Dioxide BUN Creatinine Glucose POC Glucose 209 H 189 H 236 H Calcium Phosphorus Ammonia Total Protein Albumin Arterial Blood Glucose Arterial Blood Ionized Calcium Phenytoin Valproic Acid 01/14/21 01/14/21 01/14/21 08:57 08:57 12:22 WBC 12.0 H RBC Hgb 11.3 L Hct 34.5 L MCV MCH RDW 20.6 H Plt Count Lymph % (Auto) 6.4 L Lymph # (Auto) 0.8 L Seg Neutrophils % 87.4 H Seg Neutrophils # 10.5 H ABG pH POC ABG pCO2 POC ABG pO2 ABG Hemoglobin ABG Oxyhemoglobin ABG Sodium ABG Potassium ABG Glucose Sodium 131 L Potassium Chloride 93.7 L Carbon Dioxide BUN 37 H Creatinine 3.7 H Glucose 261 H POC Glucose 280 H Calcium Phosphorus Ammonia Total Protein Albumin Arterial Blood Glucose Arterial Blood Ionized Calcium Phenytoin Valproic Acid 01/14/21 01/14/21 01/15/21 16:15 22:28 04:43 WBC RBC Hgb Hct MCV MCH RDW Plt Count Lymph % (Auto) Lymph # (Auto) Seg Neutrophils % Seg Neutrophils # ABG pH POC ABG pCO2 POC ABG pO2 ABG Hemoglobin ABG Oxyhemoglobin ABG Sodium ABG Potassium ABG Glucose Sodium Potassium Chloride Carbon Dioxide BUN Creatinine Glucose POC Glucose 289 H 252 H 243 H Calcium Phosphorus Ammonia Total Protein Albumin Arterial Blood Glucose Arterial Blood Ionized Calcium Phenytoin Valproic Acid 01/15/21 01/15/21 01/15/21 05:22 05:22 08:56 WBC 11.1 H RBC Hgb 11.0 L Hct 33.3 L MCV 83 L MCH 27 L RDW 20.6 H Plt Count Lymph % (Auto) 6.3 L Lymph # (Auto) 0.7 L Seg Neutrophils % 88.2 H Seg Neutrophils # 9.8 H ABG pH POC ABG pCO2 POC ABG pO2 ABG Hemoglobin ABG Oxyhemoglobin ABG Sodium ABG Potassium ABG Glucose Sodium 130 L Potassium Chloride 92.0 L Carbon Dioxide BUN 49 H Creatinine 4.2 H Glucose 241 H POC Glucose Calcium Phosphorus Ammonia Total Protein Albumin Arterial Blood Glucose Arterial Blood Ionized Calcium Phenytoin Valproic Acid 45.9 L 01/15/21 01/15/21 01/15/21 16:42 18:14 23:10 WBC RBC Hgb Hct MCV MCH RDW Plt Count Lymph % (Auto) Lymph # (Auto) Seg Neutrophils % Seg Neutrophils # ABG pH 7.463 H POC ABG pCO2 POC ABG pO2 377.4 H ABG Hemoglobin 11.6 L ABG Oxyhemoglobin 98.6 H ABG Sodium 130.1 L ABG Potassium ABG Glucose 254 H Sodium Potassium Chloride Carbon Dioxide BUN Creatinine Glucose POC Glucose 218 H 279 H Calcium Phosphorus Ammonia Total Protein Albumin Arterial Blood Glucose 254 H Arterial Blood Ionized Calcium 4.5 L Phenytoin Valproic Acid 01/16/21 01/16/21 01/16/21 03:10 05:11 05:17 WBC RBC Hgb 10.4 L Hct 31.8 L MCV MCH 27 L RDW 20.3 H Plt Count 132 L Lymph % (Auto) Lymph # (Auto) Seg Neutrophils % Seg Neutrophils # ABG pH POC ABG pCO2 POC ABG pO2 174.4 H ABG Hemoglobin 10.3 L ABG Oxyhemoglobin 98.6 H ABG Sodium 129.9 L ABG Potassium 3.2 L ABG Glucose 202 H Sodium Potassium Chloride Carbon Dioxide BUN Creatinine Glucose POC Glucose 193 H Calcium Phosphorus Ammonia Total Protein Albumin Arterial Blood Glucose 202 H Arterial Blood Ionized Calcium Phenytoin Valproic Acid 01/16/21 01/16/21 01/16/21 05:17 09:15 11:33 WBC RBC Hgb Hct MCV MCH RDW Plt Count Lymph % (Auto) Lymph # (Auto) Seg Neutrophils % Seg Neutrophils # ABG pH POC ABG pCO2 POC ABG pO2 ABG Hemoglobin ABG Oxyhemoglobin ABG Sodium ABG Potassium ABG Glucose Sodium Potassium 3.4 L Chloride Carbon Dioxide BUN 36 H Creatinine 3.2 H Glucose 216 H POC Glucose 174 H Calcium 8.3 L Phosphorus 1.10 L Ammonia Total Protein Albumin Arterial Blood Glucose Arterial Blood Ionized Calcium Phenytoin 6.5 L Valproic Acid 01/16/21 01/17/21 01/17/21 18:13 00:10 04:00 WBC RBC Hgb Hct MCV MCH RDW Plt Count Lymph % (Auto) Lymph # (Auto) Seg Neutrophils % Seg Neutrophils # ABG pH POC ABG pCO2 POC ABG pO2 ABG Hemoglobin 10.1 L ABG Oxyhemoglobin ABG Sodium 130.1 L ABG Potassium 3.3 L ABG Glucose 153 H Sodium Potassium Chloride Carbon Dioxide BUN Creatinine Glucose POC Glucose 162 H 150 H Calcium Phosphorus Ammonia Total Protein Albumin Arterial Blood Glucose 153 H Arterial Blood Ionized Calcium Phenytoin Valproic Acid 01/17/21 01/17/21 01/17/21 05:30 05:48 11:14 WBC RBC Hgb Hct MCV MCH RDW Plt Count Lymph % (Auto) Lymph # (Auto) Seg Neutrophils % Seg Neutrophils # ABG pH POC ABG pCO2 POC ABG pO2 ABG Hemoglobin ABG Oxyhemoglobin ABG Sodium ABG Potassium ABG Glucose Sodium 136 L Potassium 3.5 L Chloride Carbon Dioxide BUN 48 H Creatinine 3.5 H Glucose 165 H POC Glucose 149 H Calcium 8.0 L Phosphorus 0.80 L* D Ammonia 22.0 L Total Protein Albumin Arterial Blood Glucose Arterial Blood Ionized Calcium Phenytoin Valproic Acid 01/17/21 01/17/21 01/17/21 11:43 17:34 18:46 WBC RBC Hgb Hct MCV MCH RDW Plt Count Lymph % (Auto) Lymph # (Auto) Seg Neutrophils % Seg Neutrophils # ABG pH POC ABG pCO2 POC ABG pO2 ABG Hemoglobin ABG Oxyhemoglobin ABG Sodium ABG Potassium ABG Glucose Sodium Potassium Chloride Carbon Dioxide BUN Creatinine Glucose POC Glucose 160 H 209 H Calcium Phosphorus 2.20 L D Ammonia Total Protein Albumin Arterial Blood Glucose Arterial Blood Ionized Calcium Phenytoin Valproic Acid 01/17/21 01/17/21 01/18/21 19:00 23:19 03:28 WBC RBC Hgb Hct MCV MCH RDW Plt Count Lymph % (Auto) Lymph # (Auto) Seg Neutrophils % Seg Neutrophils # ABG pH POC ABG pCO2 POC ABG pO2 190.2 H ABG Hemoglobin 11.9 L ABG Oxyhemoglobin 98.5 H ABG Sodium 130.9 L 131.0 L ABG Potassium 3.0 L 2.8 L ABG Glucose 241 H Sodium Potassium Chloride Carbon Dioxide BUN Creatinine Glucose POC Glucose 222 H Calcium Phosphorus Ammonia Total Protein Albumin Arterial Blood Glucose 241 H Arterial Blood Ionized Calcium 4.5 L Phenytoin Valproic Acid 01/18/21 01/18/21 01/18/21 04:16 06:20 10:20 WBC 14.1 H RBC Hgb 11.2 L Hct 34.5 L MCV 83 L MCH 27 L RDW 20.8 H Plt Count 116 L Lymph % (Auto) Lymph # (Auto) Seg Neutrophils % Seg Neutrophils # ABG pH POC ABG pCO2 POC ABG pO2 ABG Hemoglobin ABG Oxyhemoglobin ABG Sodium ABG Potassium ABG Glucose Sodium 134 L Potassium 2.9 L* Chloride Carbon Dioxide 21 L BUN 60 H Creatinine 3.9 H Glucose POC Glucose 69 L Calcium Phosphorus 1.60 L D Ammonia Total Protein Albumin Arterial Blood Glucose Arterial Blood Ionized Calcium Phenytoin Valproic Acid 01/18/21 01/18/21 01/18/21 11:29 15:30 17:23 WBC RBC Hgb Hct MCV MCH RDW Plt Count Lymph % (Auto) Lymph # (Auto) Seg Neutrophils % Seg Neutrophils # ABG pH POC ABG pCO2 POC ABG pO2 ABG Hemoglobin ABG Oxyhemoglobin ABG Sodium ABG Potassium ABG Glucose Sodium Potassium 3.3 L Chloride Carbon Dioxide BUN 42 H Creatinine 3.1 H Glucose 190 H POC Glucose 128 H 167 H Calcium 8.2 L Phosphorus 1.10 L D Ammonia Total Protein Albumin Arterial Blood Glucose Arterial Blood Ionized Calcium Phenytoin Valproic Acid 01/18/21 01/19/21 01/19/21 23:43 03:43 04:38 WBC RBC Hgb Hct MCV MCH RDW Plt Count Lymph % (Auto) Lymph # (Auto) Seg Neutrophils % Seg Neutrophils # ABG pH 7.536 H POC ABG pCO2 27.0 L POC ABG pO2 165.8 H ABG Hemoglobin 10.7 L ABG Oxyhemoglobin 98.4 H ABG Sodium 131.3 L ABG Potassium ABG Glucose 152 H Sodium Potassium Chloride Carbon Dioxide BUN 55 H Creatinine 3.8 H Glucose 143 H POC Glucose 232 H Calcium Phosphorus 1.10 L Ammonia Total Protein Albumin Arterial Blood Glucose 152 H Arterial Blood Ionized Calcium Phenytoin Valproic Acid 01/19/21 01/19/21 01/19/21 05:12 11:36 15:16 WBC RBC Hgb Hct MCV MCH RDW Plt Count Lymph % (Auto) Lymph # (Auto) Seg Neutrophils % Seg Neutrophils # ABG pH POC ABG pCO2 POC ABG pO2 ABG Hemoglobin ABG Oxyhemoglobin ABG Sodium ABG Potassium ABG Glucose Sodium Potassium Chloride Carbon Dioxide BUN Creatinine Glucose POC Glucose 135 H 201 H Calcium Phosphorus 1.10 L Ammonia Total Protein Albumin Arterial Blood Glucose Arterial Blood Ionized Calcium Phenytoin Valproic Acid 01/19/21 01/19/21 01/20/21 17:55 23:22 04:00 WBC RBC Hgb Hct MCV MCH RDW Plt Count Lymph % (Auto) Lymph # (Auto) Seg Neutrophils % Seg Neutrophils # ABG pH 7.513 H POC ABG pCO2 POC ABG pO2 ABG Hemoglobin 9.9 L ABG Oxyhemoglobin ABG Sodium 129.4 L ABG Potassium ABG Glucose 196 H Sodium Potassium Chloride Carbon Dioxide BUN Creatinine Glucose POC Glucose 222 H 252 H Calcium Phosphorus Ammonia Total Protein Albumin Arterial Blood Glucose 196 H Arterial Blood Ionized Calcium Phenytoin Valproic Acid 01/20/21 01/20/21 01/20/21 05:15 11:15 14:49 WBC 16.1 H RBC Hgb 9.9 L Hct 30.3 L MCV 82 L MCH 27 L RDW 20.7 H Plt Count 114 L Lymph % (Auto) Lymph # (Auto) Seg Neutrophils % Seg Neutrophils # ABG pH POC ABG pCO2 POC ABG pO2 ABG Hemoglobin ABG Oxyhemoglobin ABG Sodium ABG Potassium ABG Glucose Sodium Potassium Chloride Carbon Dioxide BUN Creatinine Glucose POC Glucose 163 H 149 H Calcium Phosphorus Ammonia Total Protein Albumin Arterial Blood Glucose Arterial Blood Ionized Calcium Phenytoin Valproic Acid 01/20/21 01/20/21 01/20/21 14:49 14:49 17:12 WBC RBC Hgb Hct MCV MCH RDW Plt Count Lymph % (Auto) Lymph # (Auto) Seg Neutrophils % Seg Neutrophils # ABG pH POC ABG pCO2 POC ABG pO2 ABG Hemoglobin ABG Oxyhemoglobin ABG Sodium ABG Potassium ABG Glucose Sodium 133 L Potassium Chloride 95.8 L Carbon Dioxide BUN 48 H Creatinine 3.1 H Glucose 167 H POC Glucose 155 H Calcium Phosphorus 0.80 L* D Ammonia Total Protein Albumin Arterial Blood Glucose Arterial Blood Ionized Calcium Phenytoin Valproic Acid 48.4 L 01/21/21 01/21/21 01/21/21 00:55 05:20 06:39 WBC 17.5 H RBC 3.62 L Hgb 9.6 L Hct 29.7 L MCV 82 L MCH 26 L RDW 21.4 H Plt Count 126 L Lymph % (Auto) Lymph # (Auto) Seg Neutrophils % Seg Neutrophils # ABG pH POC ABG pCO2 POC ABG pO2 ABG Hemoglobin ABG Oxyhemoglobin ABG Sodium ABG Potassium ABG Glucose Sodium Potassium Chloride Carbon Dioxide BUN Creatinine Glucose POC Glucose 134 H 170 H Calcium Phosphorus Ammonia Total Protein Albumin Arterial Blood Glucose Arterial Blood Ionized Calcium Phenytoin Valproic Acid 01/21/21 01/21/21 06:39 11:32 WBC RBC Hgb Hct MCV MCH RDW Plt Count Lymph % (Auto) Lymph # (Auto) Seg Neutrophils % Seg Neutrophils # ABG pH POC ABG pCO2 POC ABG pO2 ABG Hemoglobin ABG Oxyhemoglobin ABG Sodium ABG Potassium ABG Glucose Sodium 133 L Potassium Chloride 95.9 L Carbon Dioxide BUN 56 H Creatinine 3.2 H Glucose 159 H POC Glucose 159 H Calcium Phosphorus 2.30 L D Ammonia Total Protein Albumin Arterial Blood Glucose Arterial Blood Ionized Calcium Phenytoin Valproic Acid
[2021-01-21] MEDS ORDERED: LIPASE 10,500/PROTEASE 25,000/AMYLASE 43,750 (UNITS) DR CAP FEEDTUBE PRN (12:42)
[2021-01-21] MEDS ORDERED: SIMPLE SYRUP 15 ML FEEDTUBE PRN ×2 (12:42)
[2021-01-21] MEDS ORDERED: SODIUM BICARBONATE 325 MG TAB FEEDTUBE PRN (12:42)
--- NOTE | 2021-01-21 13:47 | Progress Note ---
<YAMILKADEEP BRITO Levy - Last Filed: 01/21/21 15:58> Assessment and Plan Assessment and plan: 80-year-old male with ESRD on HD, HTN, CAD, cerebral arthrosclerosis, vascular dementia who is admitted for new onset seizures. On 01/15 patient was transferred to ICU and intubated for possible status epilepticus. Neuro: New onset seizure disorder; possibly be in status epilepticus vascular dementia chronic SDH cerebral atherosclerosis Neurology consulted, appreciate recommendations CT of the brain noted, no signs of acute infarct MRI showing subacute to chronic subdural hematoma. 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 -Celebrex, Keppra, Depacon -01/14 EEG is significantly abnormal, diffuse background slowing in 3-4 Hz, patient had a vertex waves and sleep spindles noted bilaterally and centrally, 2 events of facial twitching with associated generalized tonic/clonic activities, lasting for at least 15 seconds each followed by suppressions, findings suggestive of encephalopathic process and/or higher tendency of possible focal seizures with generalization, possibility of source of blood loss cannot be totally excluded -01/15 EEG shows burst suppression pattern, intermittent sharp electric activity is noted throughout the recording, pronounced in the right frontal region, fi ndings consistent with generalized seizure activity -01/16 EEG shows findings of generalized burst suppression as well as recurrent triphasic waves sinuses Rocephin for the process, and her drug effect, reports after stage cannot be excluded, possibility of toxic metabolic and/or hepatic and/or renal insufficiency cannot be excluded -01/17 EEG shows significant improvement previous recording, no epileptiform discharges noted, no runs of sharp looking activity is appreciated, intermittent triphasic waves noted mostly bifrontally and improvement in the background activity to 4-6 Hz noted throughout the recording, concerning suggestive of mild encephalopathic process and/or postictal state of possibility of flexor metabolic etiology cannot be totally excluded -01/18 EEG interpreted as mildly encephalopathic process with background 4-5 Hz noted throughout the recording with triphasic waves noted occasionally and vertex waves centrally more pronounced on the left side, no epileptiform discharge appreciated, suggestive of possible toxic metabolic and/or drug effect, possibility of postictal state cannot be totally excluded -Aspiration and seizures precautions -PERRL; no commands; no movement; cough; gag; opens eyes worsening neuro status today v yesterday repeat head CT nothing acute noted UDS has been reordered- no urine on straight cath today - send if able to get urine pharm to dec dose of sz meds today-- on keppra, depakote and phenytoin follow levels LFT/ammonia/TSH ordered for AM PRN pain meds home timolol no mind altering meds such as narcotics that would complicate neuro exam family updated on plan of care Cardio: History of hypertension SR no pressors statin holding asa due to SDH home cardura Resp: Acute hypoxic respiratory failure -Intubated 01/15 for possible status epilepticus however patient was extubated on 01/17 and had to be reintubated on 01/17 for hypoxia -Wean mechanical ventilation as tolerated -VAP bundle -SPO2 monitoring per protocol -Serial ABGs and CXR -likely will need trach -nebs prn GI Severe dysphagia; Failure to thrive Chronic PEG tube -On tube feedings changed today per Dr Gatica -nutrition following bowel reg PPI End-stage renal disease on HD Nephrology following Dialysis per renal team -Avoid nephrotoxic medications Hypophosphatemia -Na phos IV today -KPhos scheduled -resume home renal meds when appropriate HypoNa Uremia- trend oliguria no [place] Heme: a/c anemia Anemia of chronic disease -Admit H/H -Transfuse for hemoglobin less than 7 epo for chronic anemia Thrombocytopenia improving -Hold anticouagualtion in setting of chronic SDH trend CBC- ordered for AM VTE- no AC given SDH ID: leukocytosis -01/13 nares: MRSA positive -01/15 tracheal aspirate with gram-negative rods, mod growth-- pseudomonas dc levaquin due to lowering of sz threshold -if pt spikes fever- reculture and consider antibiotics -skin care per RN Endo- DM monitor blood glucose avoid hypoglycemia home linagliptin, lispro, tradjenta History Interval history: This 80-year-old male who is a resident of a fdc facility with ESRD on HD Thursday, , Thursday), hyperlipidemia, hypertension, vascular dementia, cerebral sclerosis presents to the emergency department after s uspected cardiac arrest and initiation of ACLS at the dialysis center 01/12/2021 however upon EMS arrival patient was noted to be actively seizing and chest compressions were discontinued. Upon arrival to the emergency department patient was found to have new onset seizure disorder, acidosis. Nephrology was consulted for ESRD. Patient was initially admitted to the telemetry floor under observation. 01/13/2021. Seizure precautions. Continue IV Keppra and await neurology evaluation. Check EEG and MRI. CT scan negative. Continue hemodialysis per nephrology recommendations. 01/14/2021. Patient is somnolent and lethargic. However, no new seizure activity noted. CT brain is remarkable for white matter changes. Continue seizure precautions. Follow-up EEG and MRI brain. Neurology decrease Keppra to 250 mg twice daily. Ativan as needed for seizure. Continue hemodialysis per nephrology recommendations. 01/15/2021: There is no overt seizure activity, however patient continues to be nonverbal. Patient seen after dialysis. Patient is not responsive to any verbal cues. Patient is moaning. 01/16: Patient had EEG today and was noted to be having seizure activity on 2 mg of Versed and this was uptitrated to 3 mg Versed. Neurology has been informed. Hypokalemia and hypophosphatemia addressed. Likely HD tomorrow. 01/17: Repeat EEG completed today. Severe hypophosphatemia noted today, repleted with IV phos. HD scheduled today. 01/18: Repeat EEG today per neuro, HD per nephro. Hypokalemia today to 2.9 and hypophosphatemia to 1.6, patient received 40 M EQ of KCl, PhosNak for 1 day. Will obtain pm labs. Pateint is less responsive today but Neuro does not think he had another seizure. Thrombocytopenia, will trend CBC. Patient became hypoxic towards the end of dialysis and failed BiPAP therapy and had to be intubated for hypoxia. 01/19: UDS shows presumptive benzo, HD today per nephro, Phos remains low but still has not completed supplementation. Nephro suggests flumazenil. 01/20: On CMV tidal volume 550, rate of 18, PEEP of 6 on 45% FiO2, patient has a better physical exam with neurology this morning. AM labs pending. 01/20 no acute events overnight Disposition Plan: tbd Total Time Spent with Patient (Minutes): 60 History Interval history: intubated Hospitalist Physical - Constitutional Vitals: Temp Pulse Resp BP Pulse Ox 97.4 F L 86 26 H 136/70 100 01/21/21 11:46 01/21/21 11:20 01/21/21 11:20 01/21/21 11:20 01/21/21 11:20 General appearance: Present: no acute distress - EENT Eyes: Present: PERRL - Neck Neck: Present: supple - Respiratory Respiratory effort: normal - Cardiovascular Rhythm: regular Heart Sounds: Present: S1 & S2 - Extremities Extremities: no ischemia Peripheral Pulses: within normal limits - Abdominal General gastrointestinal: soft - Integumentary Integumentary: Present: clear, warm, dry - Psychiatric Psychiatric: other - Neurologic Neurologic: other - Allied Health Allied health notes reviewed: nursing, RT, social work, case management Results - Labs CBC & Chem 7: 01/21/21 06:39 01/21/21 06:39 Labs: Laboratory Last Values WBC 17.5 K/mm3 (4.5-11.0) H 01/21/21 06:39 RBC 3.62 M/mm3 (3.65-5.03) L 01/21/21 06:39 Hgb 9.6 gm/dl (11.8-15.2) L 01/21/21 06:39 Hct 29.7 % (35.5-45.6) L 01/21/21 06:39 MCV 82 fl (84-94) L 01/21/21 06:39 MCH 26 pg (28-32) L 01/21/21 06:39 MCHC 32 % (32-34) 01/21/21 06:39 RDW 21.4 % (13.2-15.2) H 01/21/21 06:39 Plt Count 126 K/mm3 (140-440) L 01/21/21 06:39 Lymph % (Auto) 6.3 % (13.4-35.0) L 01/15/21 05:22 Blanco % (Auto) 5.4 % (0.0-7.3) 01/15/21 05:22 Eos % (Auto) 0.0 % (0.0-4.3) 01/15/21 05:22 Baso % (Auto) 0.1 % (0.0-1.8) 01/15/21 05:22 Lymph # (Auto) 0.7 K/mm3 (1.2-5.4) L 01/15/21 05:22 [place] # (Auto) 0.6 K/mm3 (0.0-0.8) 01/15/21 05:22 Eos # (Auto) 0.0 K/mm3 (0.0-0.4) 01/15/21 05:22 Baso # (Auto) 0.0 K/mm3 (0.0-0.1) 01/15/21 05:22 Seg Neutrophils % 88.2 % (40.0-70.0) H 01/15/21 05:22 Seg Neutrophils # 9.8 K/mm3 (1.8-7.7) H 01/15/21 05:22 ABG pH 7.513 (7.320-7.450) H 01/20/21 04:00 POC ABG pCO2 33.2 mmHg (32.0-48.0) 01/20/21 04:00 POC ABG pO2 97.9 mmHg (83-108) 01/20/21 04:00 POC ABG HCO3 26.1 01/20/21 04:00 ABG O2 Saturation 98.1 (0-100) 01/20/21 04:00 POC ABG Base Excess 3.2 01/20/21 04:00 ABG Hemoglobin 9.9 (12.0-17.5) L 01/20/21 04:00 ABG Oxyhemoglobin 96.4 (94-98) 01/20/21 04:00 ABG Methemoglobin 0.3 (0.0-1.5) 01/20/21 04:00 ABG Sodium 129.4 mmol/L (136.0-145.0) L 01/20/21 04:00 ABG Potassium 3.6 mmol/L (3.40-4.50) 01/20/21 04:00 ABG Chloride 100.0 mmol/L (98-107) 01/20/21 04:00 ABG Glucose 196 mg/dL (65-95) H 01/20/21 04:00 Carboxyhemoglobin 1.4 (0.5-1.5) 01/20/21 04:00 FiO2 % 45.0 01/20/21 04:00 Sodium 133 mmol/L (137-145) L 01/21/21 06:39 Potassium 3.9 mmol/L (3.6-5.0) 01/21/21 06:39 Chloride 95.9 mmol/L (98-107) L 01/21/21 06:39 Carbon Dioxide 26 mmol/L (22-30) 01/21/21 06:39 Anion Gap 15 mmol/L 01/21/21 06:39 BUN 56 mg/dL (9-20) H 01/21/21 06:39 Creatinine 3.2 mg/dL (0.8-1.3) H 01/21/21 06:39 Estimated GFR 23 ml/min 01/21/21 06:39 BUN/Creatinine Ratio 18 % 01/21/21 06:39 Glucose 159 mg/dL (75-100) H 01/21/21 06:39 POC Glucose 159 mg/dL (70-105) H 01/21/21 11:32 Calcium 8.9 mg/dL (8.4-10.2) 01/21/21 06:39 Phosphorus 2.30 mg/dL (2.5-4.5) L D 01/21/21 06:39 Magnesium 1.80 mg/dL (1.7-2.3) 01/21/21 06:39 Total Bilirubin 0.30 mg/dL (0.1-1.2) 01/13/21 05:19 Direct Bilirubin < 0.2 mg/dL (0-0.2) 01/12/21 14:36 Indirect Bilirubin 0.1 mg/dL 01/12/21 14:36 AST 27 units/L (5-40) 01/13/21 05:19 ALT 10 units/L (7-56) 01/13/21 05:19 Alkaline Phosphatase 72 units/L (35-129) 01/13/21 05:19 Ammonia 22.0 umol/L (25-60) L 01/17/21 11:14 Total Protein 5.8 g/dL (6.3-8.2) L 01/13/21 05:19 Albumin 3.3 g/dL (3.9-5) L 01/13/21 05:19 Albumin/Globulin Ratio 1.3 % 01/13/21 05:19 Arterial Blood Glucose 196 mg/dL (65-95) H 01/20/21 04:00 Arterial Blood Ionized Calcium 4.6 mg/dL (4.6-5.3) 01/20/21 04:00 Nasal Screen MRSA (PCR) Positive (Negative) 01/13/21 Unknown Urine Opiates Screen Negative 01/18/21 14:25 Urine Methadone Screen Negative 01/18/21 14:25 Ur Barbiturates Screen Negative 01/18/21 14:25 Phenytoin 6.5 ug/mL (10.0-20.0) L 01/16/21 09:15 Valproic Acid 48.4 ug/mL (50-100) L 01/20/21 14:49 Ur Phencyclidine Scrn Negative 01/18/21 14:25 Ur Amphetamines Screen Negative 01/18/21 14:25 U Benzodiazepines Scrn Presumptive positive 01/18/21 14:25 Urine Cocaine Screen Negative 01/18/21 14:25 U Marijuana (THC) Screen Negative 01/18/21 14:25 Drugs of Abuse Note Disclamer 01/18/21 14:25 Coronavirus (PCR) Negative (Negative) 01/15/21 08:00 Hepatitis A IgM Ab Non-reactive (NonReactive) 01/15/21 09:15 Hep Bs Antigen Non-reactive (Negative) 01/15/21 09:15 Hep B Core IgM Ab Non-reactive (NonReactive) 01/15/21 09:15 Hepatitis C Antibody Non-reactive (NonReactive) 01/15/21 09:15 Microbiology: Microbiology 01/15/21 16:51 Tracheal Aspirate Sputum Culture - Final Pseudomonas Aeruginosa - Imaging and Cardiology Chest x-ray: other (see reort) CT Scan - head: other (see report) MRI - head: other (see report) [place]/IV: Voiding Method Incontinent Active Medications - Current Medications Current Medications: Generic Name Dose Route Start Last Admin Trade Name Freq PRN Reason Stop Dose Admin Acetaminophen 650 mg 01/12/21 19:30 Acetaminophen 325 Mg Tab PO Q4H PRN Pain MILD(1-3)/Fever >100.5/ABEL Albuterol 2.5 mg 01/12/21 19:30 Albuterol 2.5 Mg/3 Ml Nebu IH Q4HRT PRN Shortness Of Breath Lipase/Protease/Amylase 1 each 01/13/21 10:11 Lipase 10,500/Protease 25,000/Amylase 43,750 (Units) Dr Silveira FEEDTUBE PRN PRN For Clogged Feeding Tube Atorvastatin Calcium 40 mg 01/12/21 22:00 01/20/21 21:39 Atorvastatin 40 Mg Tab PO 40 mg QHS NOLAN Administration Calcitriol 1 mcg 01/13/21 10:00 01/21/21 09:07 Calcitriol 0.5 Mcg Cap PO 1 mcg QDAY NOLAN Administration Docusate Sodium 100 mg 01/17/21 09:00 Docusate Sodium 100 Mg/10 Ml Oral Liqd PO BID PRN Constipation Doxazosin Mesylate 2 mg 01/18/21 10:00 01/21/21 09:07 Doxazosin 1 Mg Tab PO 2 mg QDAY NOLAN Administration Fentanyl 25 mcg 01/17/21 18:10 Fentanyl 100 Mcg/2 Ml Inj IV Q2HR PRN Pain , Severe (7-10) Hydrophilic Ointment 1 applic 01/15/21 17:14 Lip Therapy Vaseline TP Q2HR PRN Dry Lips Sodium Chloride 100 mls @ 999 mls/hr 01/15/21 08:00 Nacl 0.9% IV DIONNA PRN Hypotension Norepinephrine 4 mg in 250 mls @ 7.5 mls/hr 01/15/21 19:00 01/16/21 09:15 Levophed Drip 4 Mg/Ns 250 Ml IV 0 mcg/min TITR NOLAN 0 mls/hr Titration Protocol 2 MCG/MIN Levetiracetam 250 mg/ Dextrose 52.5 mls @ 200 mls/hr 01/20/21 13:00 01/21/21 09:47 IV 200 mls/hr DAILY NOLAN Administration Valproate Sodium 500 mg/ 105 mls @ 100 mls/hr 01/21/21 19:00 Sodium Chloride IV Q12H NOLAN Insulin Human Lispro 0 unit 01/16/21 00:00 01/21/21 13:06 Insulin Lispro 100 Unit/Ml SUB-Q 1 unit Q6HR NOLAN Administration Protocol Lansoprazole 30 mg 01/12/21 22:00 01/21/21 09:07 Lansoprazole 30 Mg Solutab FEEDTUBE 30 mg BID NOLAN Administration Linagliptin 5 mg 01/13/21 11:00 01/21/21 08:32 Linagliptin 5 Mg Tab PO 5 mg QDDIAB NOLAN Administration Multi-Ingred Cream/Lotion/Oil/Oint 1 applic 01/15/21 17:14 Mineral Oil/Petrolatum, White Ophth Oint 3.5 Gm OU Q4HR PRN Dry Eye(s) Ondansetron HCl 4 mg 01/12/21 19:30 Ondansetron 4 Mg/2 Ml Inj IV Q8H PRN Nausea And Vomiting Simple Syrup 15 ml 01/13/21 10:11 01/18/21 06:54 Simple Syrup 15 Ml FEEDTUBE 15 ml PRN PRN Administration Hypoglycemia Simple Syrup 30 ml 01/13/21 10:11 Simple Syrup 15 Ml FEEDTUBE PRN PRN Hypoglycemia Sodium Bicarbonate 325 mg 01/13/21 10:11 Sodium Bicarbonate 325 Mg Tab FEEDTUBE PRN PRN For Clogged Feeding Tube Sodium Chloride 10 ml 01/12/21 22:00 01/21/21 09:07 Sodium Chloride 0.9% 10 Ml Flush Syringe IV 10 ml BID NOLAN Administration Sodium Chloride 10 ml 01/12/21 19:30 Sodium Chloride 0.9% 10 Ml Flush Syringe IV PRN PRN LINE FLUSH Timolol Maleate 1 drops 01/17/21 10:00 01/21/21 09:08 Timolol 0.5% Ophth Soln 5 Ml OU 1 drops QDAY NOLAN Administration Nutrition/Malnutrition Assess - Dietary Evaluation Nutrition/Malnutrition Findings: Nutrition Notes Start: 01/13/21 10:03 Freq: Status: Active Protocol: Document 01/21/21 12:27 NANCY (Rec: 01/21/21 12:42 [facility] [id number]) Nutrition Notes Initial or Follow up Reassessment Current Diagnosis CKD (stage V CKD),Diabetes, Hypertension Other Pertinent Diagnosis Chronic seizure d/o Current Diet TF- Nepro at 38ml/hr Labs/Tests Na 133 BUN 56 Cr 3.2 BG 159 Phos 2.3 Pertinent Medications Reviewed Height 5 ft 9 in Weight 56.1 kg [place] Body Weight (kg) 72.72 BMI 18.2 Weight Status Underweight Subjective/Other Information Spoke with MD and RN via phone this am; nephrology wants TF formula change sec to persistent hypophosphatemia ( despite replacement). Burn Absent Trauma Absent #2 Nutrition Diagnosis Increased nutrient needs ( specify in comment below) Diagnosis Progress(for reassessment Continues documentation) #1 Nutrition Diagnosis Inadequate oral intake Diagnosis Progress(for reassessment Continues documentation) Is patient on ventilator? Yes Is Patient Ambulatory and/or Out of Bed No REE-([place]-confined to bed) 1508.844 Kcal/Kg value to use for calculation 35 Approximate Energy Requirements Using 1964 kcal/Kg Calculation Used for Recommendations Kcal/kg Additional Notes Pro needs >1.2g/kg: >67g/day Fluid needs 1-1.5L/day Nutrition Intervention Nutrition Support: Osmolite 1.5 at 50ml/hr with 150ml water flush q4h. Provides 2200mg K, 1200mg Phos , 1680mg Na. Kcal 1,800 Protein (gm) 75 Carbohydrates (gm) 244 Fat (gm) 59 Fluid (mL) 914 Fiber (gm) 0 Goal #1 TF tolerance Goal #2 TF to meet 80-100% energy and pro needs Goal #3 Wt maintenance and/or gain Follow-Up By: 01/23/21 Additional Comments F/U: TF formula change/ tolerance, labs (BG, K, Na, Phos), vent status - Attestation Statement I have reviewed and agreed w/ Malnutrition eval & tx plan: Yes <DUY HOYT - Last Filed: 01/21/21 17:10> Assessment and Plan Assessment and plan: Agree with the note as outlined by nurse practitioner. Patient seen, weaning off of antiseizure medications. Spoke with nephrology at the bedside, no need for dialysis today. Phosphorus has improved. Hospitalist Physical - Constitutional Vitals: Temp Pulse Resp BP Pulse Ox 97.6 F 90 22 145/82 100 01/21/21 16:00 01/21/21 16:01 01/21/21 16:01 01/21/21 16:01 01/21/21 16:01 Results - Labs CBC & Chem 7: 01/21/21 06:39 01/21/21 06:39 Labs: Laboratory Last Values WBC 17.5 K/mm3 (4.5-11.0) H 01/21/21 06:39 RBC 3.62 M/mm3 (3.65-5.03) L 01/21/21 06:39 Hgb 9.6 gm/dl (11.8-15.2) L 01/21/21 06:39 Hct 29.7 % (35.5-45.6) L 01/21/21 06:39 MCV 82 fl (84-94) L 01/21/21 06:39 MCH 26 pg (28-32) L 01/21/21 06:39 MCHC 32 % (32-34) 01/21/21 06:39 RDW 21.4 % (13.2-15.2) H 01/21/21 06:39 Plt Count 126 K/mm3 (140-440) L 01/21/21 06:39 Lymph % (Auto) 6.3 % (13.4-35.0) L 01/15/21 05:22 Blanco % (Auto) 5.4 % (0.0-7.3) 01/15/21 05:22 Eos % (Auto) 0.0 % (0.0-4.3) 01/15/21 05:22 Baso % (Auto) 0.1 % (0.0-1.8) 01/15/21 05:22 Lymph # (Auto) 0.7 K/mm3 (1.2-5.4) L 01/15/21 05:22 [place] # (Auto) 0.6 K/mm3 (0.0-0.8) 01/15/21 05:22 Eos # (Auto) 0.0 K/mm3 (0.0-0.4) 01/15/21 05:22 Baso # (Auto) 0.0 K/mm3 (0.0-0.1) 01/15/21 05:22 Seg Neutrophils % 88.2 % (40.0-70.0) H 01/15/21 05:22 Seg Neutrophils # 9.8 K/mm3 (1.8-7.7) H 01/15/21 05:22 ABG pH 7.513 (7.320-7.450) H 01/20/21 04:00 POC ABG pCO2 33.2 mmHg (32.0-48.0) 01/20/21 04:00 POC ABG pO2 97.9 mmHg (83-108) 01/20/21 04:00 POC ABG HCO3 26.1 01/20/21 04:00 ABG O2 Saturation 98.1 (0-100) 01/20/21 04:00 POC ABG Base Excess 3.2 01/20/21 04:00 ABG Hemoglobin 9.9 (12.0-17.5) L 01/20/21 04:00 ABG Oxyhemoglobin 96.4 (94-98) 01/20/21 04:00 ABG Methemoglobin 0.3 (0.0-1.5) 01/20/21 04:00 ABG Sodium 129.4 mmol/L (136.0-145.0) L 01/20/21 04:00 ABG Potassium 3.6 mmol/L (3.40-4.50) 01/20/21 04:00 ABG Chloride 100.0 mmol/L (98-107) 01/20/21 04:00 ABG Glucose 196 mg/dL (65-95) H 01/20/21 04:00 Carboxyhemoglobin 1.4 (0.5-1.5) 01/20/21 04:00 FiO2 % 45.0 01/20/21 04:00 Sodium 133 mmol/L (137-145) L 01/21/21 06:39 Potassium 3.9 mmol/L (3.6-5.0) 01/21/21 06:39 Chloride 95.9 mmol/L (98-107) L 01/21/21 06:39 Carbon Dioxide 26 mmol/L (22-30) 01/21/21 06:39 Anion Gap 15 mmol/L 01/21/21 06:39 BUN 56 mg/dL (9-20) H 01/21/21 06:39 Creatinine 3.2 mg/dL (0.8-1.3) H 01/21/21 06:39 Estimated GFR 23 ml/min 01/21/21 06:39 BUN/Creatinine Ratio 18 % 01/21/21 06:39 Glucose 159 mg/dL (75-100) H 01/21/21 06:39 POC Glucose 159 mg/dL (70-105) H 01/21/21 11:32 Calcium 8.9 mg/dL (8.4-10.2) 01/21/21 06:39 Phosphorus 2.30 mg/dL (2.5-4.5) L D 01/21/21 06:39 Magnesium 1.80 mg/dL (1.7-2.3) 01/21/21 06:39 Total Bilirubin 0.30 mg/dL (0.1-1.2) 01/13/21 05:19 Direct Bilirubin < 0.2 mg/dL (0-0.2) 01/12/21 14:36 Indirect Bilirubin 0.1 mg/dL 01/12/21 14:36 AST 27 units/L (5-40) 01/13/21 05:19 ALT 10 units/L (7-56) 01/13/21 05:19 Alkaline Phosphatase 72 units/L (35-129) 01/13/21 05:19 Ammonia 22.0 umol/L (25-60) L 01/17/21 11:14 Total Protein 5.8 g/dL (6.3-8.2) L 01/13/21 05:19 Albumin 3.3 g/dL (3.9-5) L 01/13/21 05:19 Albumin/Globulin Ratio 1.3 % 01/13/21 05:19 Arterial Blood Glucose 196 mg/dL (65-95) H 01/20/21 04:00 Arterial Blood Ionized Calcium 4.6 mg/dL (4.6-5.3) 01/20/21 04:00 Nasal Screen MRSA (PCR) Positive (Negative) 01/13/21 Unknown Urine Opiates Screen Negative 01/18/21 14:25 Urine Methadone Screen Negative 01/18/21 14:25 Ur Barbiturates Screen Negative 01/18/21 14:25 Phenytoin 6.5 ug/mL (10.0-20.0) L 01/16/21 09:15 Valproic Acid 48.4 ug/mL (50-100) L 01/20/21 14:49 Ur Phencyclidine Scrn Negative 01/18/21 14:25 Ur Amphetamines Screen Negative 01/18/21 14:25 U Benzodiazepines Scrn Presumptive positive 01/18/21 14:25 Urine Cocaine Screen Negative 01/18/21 14:25 U Marijuana (THC) Screen Negative 01/18/21 14:25 Drugs of Abuse Note Disclamer 01/18/21 14:25 Coronavirus (PCR) Negative (Negative) 01/15/21 08:00 Hepatitis A IgM Ab Non-reactive (NonReactive) 01/15/21 09:15 Hep Bs Antigen Non-reactive (Negative) 01/15/21 09:15 Hep B Core IgM Ab Non-reactive (NonReactive) 01/15/21 09:15 Hepatitis C Antibody Non-reactive (NonReactive) 01/15/21 09:15 Microbiology: Microbiology 01/15/21 16:51 Tracheal Aspirate Sputum Culture - Final Pseudomonas Aeruginosa [place]/IV: Voiding Method Incontinent Active Medications - Current Medications Current Medications: Generic Name Dose Route Start Last Admin Trade Name Freq PRN Reason Stop Dose Admin Acetaminophen 650 mg 01/12/21 19:30 Acetaminophen 325 Mg Tab PO Q4H PRN Pain MILD(1-3)/Fever >100.5/ABEL Albuterol 2.5 mg 01/12/21 19:30 Albuterol 2.5 Mg/3 Ml Nebu IH Q4HRT PRN Shortness Of Breath Lipase/Protease/Amylase 1 each 01/13/21 10:11 Lipase 10,500/Protease 25,000/Amylase 43,750 (Units) Dr Cap FEEDTUBE PRN PRN For Clogged Feeding Tube Atorvastatin Calcium 40 mg 01/12/21 22:00 01/20/21 21:39 Atorvastatin 40 Mg Tab PO 40 mg QHS NOLAN Administration Calcitriol 1 mcg 01/13/21 10:00 01/21/21 09:07 Calcitriol 0.5 Mcg Cap PO 1 mcg QDAY NOLAN Administration Docusate Sodium 100 mg 01/17/21 09:00 Docusate Sodium 100 Mg/10 Ml Oral Liqd PO BID PRN Constipation Doxazosin Mesylate 2 mg 01/18/21 10:00 01/21/21 09:07 Doxazosin 1 Mg Tab PO 2 mg QDAY NOLAN Administration Hydrophilic Ointment 1 applic 01/15/21 17:14 Lip Therapy Vaseline TP Q2HR PRN Dry Lips Sodium Chloride 100 mls @ 999 mls/hr 01/15/21 08:00 Nacl 0.9% IV DIONNA PRN Hypotension Norepinephrine 4 mg in 250 mls @ 7.5 mls/hr 01/15/21 19:00 01/16/21 09:15 Levophed Drip 4 Mg/Ns 250 Ml IV 0 mcg/min TITR NOLAN 0 mls/hr Titration Protocol 2 MCG/MIN Levetiracetam 250 mg/ Dextrose 52.5 mls @ 200 mls/hr 01/20/21 13:00 01/21/21 09:47 IV 200 mls/hr DAILY NOLAN Administration Valproate Sodium 500 mg/ 105 mls @ 100 mls/hr 01/21/21 19:00 Sodium Chloride IV Q12H NOLAN Sodium Phosphate 30 mmol/ 510 mls @ 125 mls/hr 01/21/21 14:30 01/21/21 14:50 Sodium Chloride IV 01/21/21 18:34 125 mls/hr ONCE ONE Administration Insulin Human Lispro 0 unit 01/16/21 00:00 01/21/21 13:06 Insulin Lispro 100 Unit/Ml SUB-Q 1 unit Q6HR NOLAN Administration Protocol Lansoprazole 30 mg 01/12/21 22:00 01/21/21 09:07 Lansoprazole 30 Mg Solutab FEEDTUBE 30 mg BID NOLAN Administration Linagliptin 5 mg 01/13/21 11:00 01/21/21 08:32 Linagliptin 5 Mg Tab PO 5 mg QDDIAB NOLAN Administration Multi-Ingred Cream/Lotion/Oil/Oint 1 applic 01/15/21 17:14 Mineral Oil/Petrolatum, White Ophth Oint 3.5 Gm OU Q4HR PRN Dry Eye(s) Ondansetron HCl 4 mg 01/12/21 19:30 Ondansetron 4 Mg/2 Ml Inj IV Q8H PRN Nausea And Vomiting Simple Syrup 15 ml 01/13/21 10:11 01/18/21 06:54 Simple Syrup 15 Ml FEEDTUBE 15 ml PRN PRN Administration Hypoglycemia Simple Syrup 30 ml 01/13/21 10:11 Simple Syrup 15 Ml FEEDTUBE PRN PRN Hypoglycemia Sodium Bicarbonate 325 mg 01/13/21 10:11 Sodium Bicarbonate 325 Mg Tab FEEDTUBE PRN PRN For Clogged Feeding Tube Sodium Chloride 10 ml 01/12/21 22:00 01/21/21 09:07 Sodium Chloride 0.9% 10 Ml Flush Syringe IV 10 ml BID NOLAN Administration Sodium Phosphate 250 mg 01/21/21 18:00 K-Phos Neutral 250 Mg Tab PO QID NOLAN Timolol Maleate 1 drops 01/17/21 10:00 01/21/21 09:08 Timolol 0.5% Ophth Soln 5 Ml OU 1 drops QDAY NOLAN Administration Nutrition/Malnutrition Assess - Dietary Evaluation Nutrition/Malnutrition Findings: Nutrition Notes Start: 01/13/21 10:03 Freq: Status: Active Protocol: Document 01/21/21 12:27 NANCY (Rec: 01/21/21 12:42 [email or web address] [id number]) Nutrition Notes Initial or Follow up Reassessment Current Diagnosis CKD (stage V CKD),Diabetes, Hypertension Other Pertinent Diagnosis Chronic seizure d/o Current Diet TF- Nepro at 38ml/hr Labs/Tests Na 133 BUN 56 Cr 3.2 BG 159 Phos 2.3 Pertinent Medications Reviewed Height 5 ft 9 in Weight 56.1 kg [place] Body Weight (kg) 72.72 BMI 18.2 Weight Status Underweight Subjective/Other Information Spoke with MD and RN via phone this am; nephrology wants TF formula change sec to persistent hypophosphatemia ( despite replacement). Burn Absent Trauma Absent #2 Nutrition Diagnosis Increased nutrient needs ( specify in comment below) Diagnosis Progress(for reassessment Continues documentation) #1 Nutrition Diagnosis Inadequate oral intake Diagnosis Progress(for reassessment Continues documentation) Is patient on ventilator? Yes Is Patient Ambulatory and/or Out of Bed No REE-([facility]-confined to bed) 1508.844 Kcal/Kg value to use for calculation 35 Approximate Energy Requirements Using 1964 kcal/Kg Calculation Used for Recommendations Kcal/kg Additional Notes Pro needs >1.2g/kg: >67g/day Fluid needs 1-1.5L/day Nutrition Intervention Nutrition Support: Osmolite 1.5 at 50ml/hr with 150ml water flush q4h. Provides 2200mg K, 1200mg Phos , 1680mg Na. Kcal 1,800 Protein (gm) 75 Carbohydrates (gm) 244 Fat (gm) 59 Fluid (mL) 914 Fiber (gm) 0 Goal #1 TF tolerance Goal #2 TF to meet 80-100% energy and pro needs Goal #3 Wt maintenance and/or gain Follow-Up By: 01/23/21 Additional Comments F/U: TF formula change/ tolerance, labs (BG, K, Na, Phos), vent status
--- NOTE | 2021-01-21 14:02 | Cat Scan Report ---
CT HEAD WITHOUT CONTRAST HISTORY: altered mental state. TECHNIQUE: Axial imaging performed from the skull apex through the skull base without the use of con trast. All CT scans at this location are performed using CT dose reduction for ALARA by means of aut omated exposure control. COMPARISON: 01/12/2021 FINDINGS: Parenchyma: No acute intracranial hemorrhage or parenchymal abnormality. Stable moderate diffuse vol ume loss. Moderate hypoattenuation throughout the white matter is noted and consistent with chronic m icrovascular ischemic disease. No evidence for mass, mass effect or extra-axial fluid collection. No large chronic infarct. Ventricles: There is mild diffuse brain atrophy with commensurate ventricular enlargement which is l ikely age appropriate. Soft tissues: Soft tissues including the orbits appear normal. Bones: No acute osseous abnormality. Sinuses: Sinuses and mastoid air cells are clear. IMPRESSION: No acute abnormality. Advanced volume loss and chronic white matter changes which appear stable since 01/12/2021. Signer Name: Krystian Manuel Jr, MD Signed: 01/21/2021 1:57 PM Workstation Name: [id number]
[2021-01-21] MEDS ORDERED: SODIUM PHOSPHATE 30 MMOL in SODIUM CHLORIDE 0.9% 500 ML 500 ML IV ONE (14:30)
[2021-01-21] MEDS ORDERED: MAGNESIUM SULFATE 2 GM/50 ML BAG IV ONE (15:00)
[2021-01-21] MEDS: K-PHOS NEUTRAL 250 MG TAB PO SCH ×2 (18:17→21:31)
[2021-01-22] MEDS: INSULIN LISPRO 100 UNIT/ML SUB-Q SCH ×4 (00:52→18:00)
[2021-01-22 04:02] LABS: ABG Base Excess -0.1 mmol/L (-2.0-3.0); ABG HCO3 24.5 mmol/L (20.0-26.0); ABG Methemoglobin 0.3 % (0.0-1.5); ABG Oxygen Saturation 98.3 % (95.0-99.0); ABG PCO2 39.5 mm Hg; ABG PH 7.41 pH Units (7.350-7.450); ABG PO2 118.8 mm Hg (80.0-90.0)
--- NOTE | 2021-01-22 04:32 | XRay Report ---
CHEST 1 VIEW 01/22/2021 3:31 AM INDICATION / CLINICAL INFORMATION: fever. COMPARISON: 01/19/2021 FINDINGS: SUPPORT DEVICES: Unchanged. HEART / MEDIASTINUM: Unchanged LUNGS / PLEURA: There is mild increased airspace opacity in the left lower lung zone. No pneumothorax . ADDITIONAL FINDINGS: No significant additional findings. IMPRESSION: 1. There is mild increased airspace opacity in the left lower lung zone. Signer Name: Jason Shelton MD Signed: 01/22/2021 4:28 AM Workstation Name: [id number]
[2021-01-22 05:51] LABS: Hematocrit 28.6 % (35.5-45.6); Hemoglobin 9.3 gm/dl (11.8-15.2); Mean Corpuscular HGB Conc 33 % (32-34); Mean Corpuscular Volume 83 fl (84-94); Platelet Count 129 K/mm3 (140-440); Red Blood Count 3.47 M/mm3 (3.65-5.03)
[2021-01-22] MEDS: VALPROATE SODIUM 500 MG in SODIUM CHLORIDE 0.9% 100 ML IV SCH (06:00)
[2021-01-22 06:03] LABS: INR 1.15 (0.87-1.13)
[2021-01-22 06:07] LABS: Red Cell Distribution Width 21.4 % (13.2-15.2)
[2021-01-22 06:11] LABS: Albumin 1.9 g/dL (3.9-5); Calcium 8.1 mg/dL (8.4-10.2)
[2021-01-22] MEDS: LINAGLIPTIN 5 MG TAB PO SCH (08:01)
--- NOTE | 2021-01-22 08:45 | Progress Note ---
Assessment and Plan 1.ESRD: Patient is on maintenance hemodialysis three times a week, TTS schedule. Last outpatient HD 01/12/2021. Meds dosage based on GFR. Hemodialysis: 01/15, 01/16, 01/17(UF), 01/18. HD today. 2. FEN: Volume overload, UF with HD. Hyponatremia, improved, monitor. Replete Phos as needed. Monitor lytes and volume status. 3. Acute resp failure: Currently intubated, on vent. Extubated 01/17. Re-intubated 01/17. Wean as tolerated. 4. Shock: Off pressors. Monitor. 5. New onset of possible witnessed seizure during dialysis: CT brain remarkable for white matter changes. MRI brain: small SDH, chronic changes. Valproate and Keppra. Seizure precaution. Followed by Neuro. 6. Advanced dementia: CT white matter changes. 7. Failure to thrive: PEG tube. 8. Anemia, POA: Epogen with HD. 9. DM type 2. 10. Acute metabolic encephalopathy: Followed by Neuro. Subjective: Patient was seen and examined at the bedside. Examination: General appearance: well-developed, appears stated age, no distress, intubated, on vent, FiO2 35% HEENT: ATNC Neck: Trachea midline Respiratory: ctab Cardiology: regular, S1S2, no murmur Abdomen: soft, not tender, BS heard, Peg tube noted Integumentary: warm, dry, no obvious rash Neurologic: not responding Ext: no edema noted Hemodialysis catheter: R IJ tunnel catheter Subjective Date of service: 01/22/21 Principal diagnosis: witnessed seizure hx of ESRD ,hyponatremia Objective - Vital Signs Vital signs: Vital Signs - 12hr 01/21/21 01/21/21 01/21/21 20:51 21:01 21:11 Temperature Pulse Rate 94 H 94 H 93 H Pulse Rate [ From Monitor] Respiratory 22 22 22 Rate Blood Pressure 148/55 154/70 154/70 O2 Sat by Pulse 100 99 100 Oximetry 01/21/21 01/21/21 01/21/21 21:21 21:31 21:41 Temperature Pulse Rate 92 H 97 H 94 H Pulse Rate [ From Monitor] Respiratory 20 21 20 Rate Blood Pressure 143/64 147/60 147/60 O2 Sat by Pulse 100 100 100 Oximetry 01/21/21 01/21/21 01/21/21 21:51 22:01 22:11 Temperature Pulse Rate 95 H 91 H 86 Pulse Rate [ From Monitor] Respiratory 18 19 18 Rate Blood Pressure 157/55 148/62 148/62 O2 Sat by Pulse 100 100 100 Oximetry 01/21/21 01/21/21 01/21/21 22:21 22:31 22:41 Temperature Pulse Rate 91 H 93 H 88 Pulse Rate [ From Monitor] Respiratory 18 21 21 Rate Blood Pressure 154/54 151/50 151/50 O2 Sat by Pulse 100 100 100 Oximetry 01/21/21 01/21/21 01/21/21 22:42 22:51 23:01 Temperature Pulse Rate 92 H 87 92 H Pulse Rate [ From Monitor] Respiratory 20 21 20 Rate Blood Pressure 125/63 151/57 149/54 O2 Sat by Pulse 100 100 100 Oximetry 01/21/21 01/21/21 01/21/21 23:09 23:11 23:21 Temperature Pulse Rate 90 91 H 81 Pulse Rate [ From Monitor] Respiratory 22 18 22 Rate Blood Pressure 149/54 149/54 146/53 O2 Sat by Pulse 100 100 100 Oximetry 01/21/21 01/21/21 01/21/21 23:25 23:31 23:41 Temperature Pulse Rate 91 H 93 H 95 H Pulse Rate [ From Monitor] Respiratory 20 19 Rate Blood Pressure 146/53 146/53 116/57 O2 Sat by Pulse 100 100 100 Oximetry 01/21/21 01/22/21 01/22/21 23:51 00:00 00:01 Temperature 97.9 F Pulse Rate 93 H 92 H 94 H Pulse Rate [ 94 H From Monitor] Respiratory 24 21 21 Rate Blood Pressure 143/59 152/75 O2 Sat by Pulse 100 99 99 Oximetry 01/22/21 01/22/21 01/22/21 00:11 00:21 00:31 Temperature Pulse Rate 95 H 90 93 H Pulse Rate [ From Monitor] Respiratory 21 21 21 Rate Blood Pressure 152/75 159/64 149/71 O2 Sat by Pulse 100 100 100 Oximetry 01/22/21 01/22/21 01/22/21 00:41 00:51 01:01 Temperature Pulse Rate 92 H 93 H 92 H Pulse Rate [ From Monitor] Respiratory 17 22 17 Rate Blood Pressure 149/71 142/66 158/71 O2 Sat by Pulse 100 100 100 Oximetry 01/22/21 01/22/2101/22/21 01:11 01:21 01:31 Temperature Pulse Rate 93 H 88 93 H Pulse Rate [ From Monitor] Respiratory 20 19 21 Rate Blood Pressure 158/71 152/61 148/58 O2 Sat by Pulse 100 100 100 Oximetry 01/22/21 01/22/21 01/22/21 01:41 01:51 02:01 Temperature Pulse Rate 94 H 93 H 75 Pulse Rate [ From Monitor] Respiratory 15 21 22 Rate Blood Pressure 148/58 154/58 134/61 O2 Sat by Pulse 100 100 100 Oximetry 01/22/21 01/22/21 01/22/21 02:11 02:21 02:31 Temperature Pulse Rate 91 H 93 H 74 Pulse Rate [ From Monitor] Respiratory 16 19 21 Rate Blood Pressure 134/61 143/59 138/63 O2 Sat by Pulse 100 100 100 Oximetry 01/22/21 01/22/21 01/22/21 02:41 02:51 03:01 Temperature Pulse Rate 82 92 H 94 H Pulse Rate [ From Monitor] Respiratory 22 21 22 Rate Blood Pressure 138/63 139/67 150/75 O2 Sat by Pulse 100 100 100 Oximetry 01/22/21 01/22/21 01/22/21 03:11 03:20 03:21 Temperature 98.9 F Pulse Rate 94 H 96 H Pulse Rate [ From Monitor] Respiratory 24 23 Rate Blood Pressure 150/75 157/61 O2 Sat by Pulse 100 100 Oximetry 01/22/21 01/22/21 01/22/21 03:31 03:41 03:51 Temperature Pulse Rate 82 93 H 91 H Pulse Rate [ From Monitor] Respiratory 19 16 22 Rate Blood Pressure 157/61 160/70 141/53 O2 Sat by Pulse 98 100 100 Oximetry 01/22/21 01/22/21 01/22/21 04:00 04:01 04:03 Temperature Pulse Rate 92 H 82 87 Pulse Rate [ 82 From Monitor] Respiratory 20 20 Rate Blood Pressure 127/59 127/59 O2 Sat by Pulse 98 98 100 Oximetry 01/22/21 01/22/21 01/22/21 04:11 04:20 04:31 Temperature Pulse Rate 86 103 H 87 Pulse Rate [ From Monitor] Respiratory 13 19 11 L Rate Blood Pressure 127/59 134/59 134/52 O2 Sat by Pulse 100 100 98 Oximetry 01/22/21 01/22/21 01/22/21 04:41 04:51 05:01 Temperature Pulse Rate 93 H 96 H 95 H Pulse Rate [ From Monitor] Respiratory 18 12 14 Rate Blood Pressure 134/52 134/52 166/58 O2 Sat by Pulse 100 99 Oximetry 01/22/21 01/22/21 01/22/21 05:11 05:21 05:31 Temperature Pulse Rate 92 H 92 H 91 H Pulse Rate [ From Monitor] Respiratory 19 13 13 Rate Blood Pressure 166/58 166/58 123/79 O2 Sat by Pulse 100 100 100 Oximetry 01/22/21 01/22/21 01/22/21 05:41 05:51 06:01 Temperature Pulse Rate 92 H 92 H 93 H Pulse Rate [ From Monitor] Respiratory 13 13 12 Rate Blood Pressure 123/79 105/57 129/53 O2 Sat by Pulse 100 100 99 Oximetry 01/22/21 01/22/21 01/22/21 06:11 06:21 06:31 Temperature Pulse Rate 93 H 92 H 90 Pulse Rate [ From Monitor] Respiratory 17 15 14 Rate Blood Pressure 129/53 120/70 107/59 O2 Sat by Pulse 100 100 100 Oximetry 01/22/21 01/22/21 01/22/21 06:41 06:50 07:00 Temperature Pulse Rate 90 89 89 Pulse Rate [ From Monitor] Respiratory 15 17 16 Rate Blood Pressure 107/59 107/59 107/46 O2 Sat by Pulse 100 100 99 Oximetry 01/22/21 01/22/21 01/22/21 07:10 07:21 07:29 Temperature 97.5 F L Pulse Rate 87 88 Pulse Rate [ From Monitor] Respiratory 14 16 Rate Blood Pressure 107/46 144/48 O2 Sat by Pulse 100 100 Oximetry 01/22/21 01/22/21 01/22/21 07:30 07:40 07:51 Temperature Pulse Rate 90 91 H 90 Pulse Rate [ From Monitor] Respiratory 19 15 20 Rate Blood Pressure 144/48 135/66 114/56 O2 Sat by Pulse 100 100 100 Oximetry 01/22/21 01/22/21 01/22/21 08:00 08:01 08:05 Temperature 97.5 F L Pulse Rate 89 Pulse Rate [ 93 H From Monitor] Respiratory 17 19 Rate Blood Pressure 119/66 O2 Sat by Pulse 98 100 Oximetry 01/22/21 08:41 Temperature Pulse Rate 89 Pulse Rate [ From Monitor] Respiratory Rate Blood Pressure 119/66 O2 Sat by Pulse 100 Oximetry - Lab 01/22/21 04:20 01/22/21 04:20 Most recent lab results ABG pH 7.410 pH Units (7.350-7.450) 01/22/21 04:00 ABG pCO2 39.5 mm Hg 01/22/21 04:00 ABG pO2 118.8 mm Hg (80.0-90.0) H 01/22/21 04:00 ABG HCO3 24.5 mmol/L (20.0-26.0) 01/22/21 04:00 ABG O2 Saturation 98.3 % (95.0-99.0) 01/22/21 04:00 Calcium 8.1 mg/dL (8.4-10.2) L 01/22/21 04:20 Phosphorus 3.70 mg/dL (2.5-4.5) D 01/22/21 04:20 Magnesium 2.00 mg/dL (1.7-2.3) 01/22/21 04:20 Medications & Allergies - Medications Allergies/Adverse Reactions: Allergies No Known Allergies Allergy (Verified 08/14/19 16:11) Home Medications: Home Medications Medication Instructions Recorded Confirmed Last Taken Type Alogliptin Benzoate [Alogliptin] 1 tab PO DAILY 10/02/20 10/25/20 Unknown History Sevelamer Carbonate [Renvela] 800 mg PO TIDWM 10/02/20 10/25/20 Unknown History buprenorphine hcl [Subutex] 2 mg SL QDAY PRN 10/02/20 10/25/20 Unknown History AtorvaSTATin [Lipitor] 40 mg PO QHS #30 10/11/20 10/25/20 Unknown Rx Docusate Sodium [Colace CAP] 100 mg PO BID PRN #60 cap 10/11/20 10/25/20 Unknown Rx Doxazosin [Cardura] 4 mg PO QDAY #30 10/11/20 10/25/20 Unknown Rx Febuxostat 40 mg PO QDAY #30 10/11/20 10/25/20 Unknown Rx Ketotifen Fumarate 1 drop OU QDAY #1 bottle 10/11/20 10/25/20 Unknown Rx Lansoprazole Solutab [Prevacid 30 mg FEEDTUBE BID #60 tab.rapdis 10/11/20 10/25/20 Unknown Rx Solutab] Megestrol Acetate 40 mg PO QDAY #30 10/11/20 10/25/20 Unknown Rx Metoprolol [Lopressor TAB] 12.5 mg PO BID #60 tablet 10/11/20 10/25/20 Unknown Rx calcitrioL [Rocaltrol] 1 mcg PO QDAY #30 cap 10/11/20 10/25/20 Unknown Rx timoloL maleate [Timolol Maleate 1 drop OP BID #1 bottle 10/11/20 10/25/20 Unknown Rx 0.25%] Active Medications: Generic Name Dose Route Start Last Admin Trade Name Freq PRN Reason Stop Dose Admin Acetaminophen 650 mg 01/12/21 19:30 Acetaminophen 325 Mg Tab PO Q4H PRN Pain MILD(1-3)/Fever >100.5/ABEL Albuterol 2.5 mg 01/12/21 19:30 Albuterol 2.5 Mg/3 Ml Nebu IH Q4HRT PRN Shortness Of Breath Lipase/Protease/Amylase 1 each 01/13/21 10:11 Lipase 10,500/Protease 25,000/Amylase 43,750 (Units) Dr Silveira FEEDTUBE PRN PRN For Clogged Feeding Tube Atorvastatin Calcium 40 mg 01/12/21 22:00 01/21/21 21:31 Atorvastatin 40 Mg Tab PO 40 mg QHS NOLAN Administration Calcitriol 1 mcg 01/13/21 10:00 01/21/21 09:07 Calcitriol 0.5 Mcg Cap PO 1 mcg QDAY NOLAN Administration Docusate Sodium 100 mg 01/17/21 09:00 Docusate Sodium 100 Mg/10 Ml Oral Liqd PO BID PRN Constipation Doxazosin Mesylate 2 mg 01/18/21 10:00 01/21/21 09:07 Doxazosin 1 Mg Tab PO 2 mg QDAY NOLAN Administration Hydrophilic Ointment 1 applic 01/15/21 17:14 Lip Therapy Vaseline TP Q2HR PRN Dry Lips Sodium Chloride 100 mls @ 999 mls/hr 01/15/21 08:00 Nacl 0.9% IV DIONNA PRN Hypotension Levetiracetam 250 mg/ Dextrose 52.5 mls @ 200 mls/hr 01/20/21 13:00 01/21/21 09:47 IV 200 mls/hr DAILY NOLAN Administration Valproate Sodium 500 mg/ 105 mls @ 100 mls/hr 01/21/21 19:00 01/22/21 06:00 Sodium Chloride IV 100 mls/hr Q12H NOLAN Administration Insulin Human Lispro 0 unit 01/16/21 00:00 01/22/21 05:57 Insulin Lispro 100 Unit/Ml SUB-Q 2 unit Q6HR NOLAN Administration Protocol Lansoprazole 30 mg 01/12/21 22:00 01/21/21 21:31 Lansoprazole 30 Mg Solutab FEEDTUBE 30 mg BID NOLAN Administration Linagliptin 5 mg 01/13/21 11:00 01/22/21 08:01 Linagliptin 5 Mg Tab PO 5 mg QDDIAB NOLAN Administration Multi-Ingred Cream/Lotion/Oil/Oint 1 applic 01/15/21 17:14 Mineral Oil/Petrolatum, White Ophth Oint 3.5 Gm OU Q4HR PRN Dry Eye(s) Ondansetron HCl 4 mg 01/12/21 19:30 Ondansetron 4 Mg/2 Ml Inj IV Q8H PRN Nausea And Vomiting Simple Syrup 15 ml 01/13/21 10:11 01/18/21 06:54 Simple Syrup 15 Ml FEEDTUBE 15 ml PRN PRN Administration Hypoglycemia Simple Syrup 30 ml 01/13/21 10:11 Simple Syrup 15 Ml FEEDTUBE PRN PRN Hypoglycemia Sodium Bicarbonate 325 mg 01/13/21 10:11 Sodium Bicarbonate 325 Mg Tab FEEDTUBE PRN PRN For Clogged Feeding Tube Sodium Chloride 10 ml 01/12/21 22:00 01/21/21 21:32 Sodium Chloride 0.9% 10 Ml Flush Syringe IV 10 ml BID NOLAN Administration Sodium Phosphate 250 mg 01/21/21 18:00 01/21/21 21:31 K-Phos Neutral 250 Mg Tab PO 250 mg QID NOLAN Administration Timolol Maleate 1 drops 01/17/21 10:00 01/21/21 09:08 Timolol 0.5% Ophth Soln 5 Ml OU 1 drops QDAY NOLAN Administration
--- NOTE | 2021-01-22 09:11 | Progress Note ---
Assessment and Plan 80 y/o with chronic seizure disorder, ESRD, HTN admitted with status epilepticus, requiring intubation for burst suppression. 01/22/21: Will discuss on rounds today the possibility of cutting back more on anti-epileptic meds to see if this helps with his mental state. Will reach out to family today to discuss next options and goals of care. He is currently not a candidate for extubation and may need trach and peg. Will call with CM. Continue daily PSV trials. 01/21/21: FiO2 now down to 30%. RT to attempt PSV today to see how patient tolerates. Not a candidate for extubation given his current mental state. Neuro did decrease meds more on yesterday Keppra daily and BID Valproic Acid. Will call family to update on current level of care. Overall prognosis remains guarded to poor. Will get Head CT today to rule out any new areas of ischemia or bleeding. 01/20/21: FiO2 stable on 45%. Hold on repeat Imaging for now. Will hold on Flumazenil therapy given his prior history of seizure. May need more HD tomorrow. Spoke with Daughter and over the phone to update and they asked me to call them again tomorrow. Will tell them that visiting hours are present if they choose to come. Guarded prognosis. 01/19/21: Dropped FiO2 to 45%. Await neurology eval today but need to consider repeat imaging of head as I have not explanation as to why patient is not responsive. Patient does not make any urine so not able to send UDS. Had HD on yesterday so next one would likely be Thursday. Renal to address electrolytes. Very very guarded prognosis. 01/18/21: EEG not officially read, but prelim is negative for seizures, just diffuse slowing. ABG is stable, not hypercapnic. Will send UDS to see if benzos are still in system. spoke with renal who will do HD today and manage electrolytes. DId order mag level given low levels of potassium. Overall prognosis is very guarded to poor. If not more responsive tomorrow, may need to consider repeat imaging of head/brain. 01/17/21: Extubate. HD today per renal. If tolerates both, transfer back to floor on new anti-epileptic regimen 1. Continue Versed at 3mg IV per Hour for the next 24 hours. 2. Repeat EEG tomorrow off Versed. 3. Will attempt to get this before HD tomorrow. 4. HD per renal, tomorrow as patient got HD yesterday CCT 31 minutes. Subjective Date of service: 01/22/21 Principal diagnosis: witnessed seizure hx of ESRD ,hyponatremia Interval history: CT head negative. Had apnea while on PSV trials but appears to may have continued it for about 3 hours. HD today per renal. Objective Vital Signs - 12hr 01/21/21 01/21/21 01/21/21 21:11 21:21 21:31 Temperature Pulse Rate 93 H 92 H 97 H Pulse Rate [ From Monitor] Respiratory 22 20 21 Rate Blood Pressure 154/70 143/64 147/60 O2 Sat by Pulse 100 100 100 Oximetry 01/21/21 01/21/21 01/21/21 21:41 21:51 22:01 Temperature Pulse Rate 94 H 95 H 91 H Pulse Rate [ From Monitor] Respiratory 20 18 19 Rate Blood Pressure 147/60 157/55 148/62 O2 Sat by Pulse 100 100 100 Oximetry 01/21/21 01/21/21 01/21/21 22:11 22:21 22:31 Temperature Pulse Rate 86 91 H 93 H Pulse Rate [ From Monitor] Respiratory 18 18 21 Rate Blood Pressure 148/62 154/54 151/50 O2 Sat by Pulse 100 100 100 Oximetry 01/21/21 01/21/21 01/21/21 22:41 22:42 22:51 Temperature Pulse Rate 88 92 H 87 Pulse Rate [ From Monitor] Respiratory 21 20 21 Rate Blood Pressure 151/50 125/63 151/57 O2 Sat by Pulse 100 100 100 Oximetry 01/21/21 01/21/21 01/21/21 23:01 23:09 23:11 Temperature Pulse Rate 92 H 90 91 H Pulse Rate [ From Monitor] Respiratory 20 22 18 Rate Blood Pressure 149/54 149/54 149/54 O2 Sat by Pulse 100 100 100 Oximetry 01/21/21 01/21/21 01/21/21 23:21 23:25 23:31 Temperature Pulse Rate 81 91 H 93 H Pulse Rate [ From Monitor] Respiratory 22 20 Rate Blood Pressure 146/53 146/53 146/53 O2 Sat by Pulse 100 100 100 Oximetry 01/21/21 01/21/21 01/22/21 23:41 23:51 00:00 Temperature 97.9 F Pulse Rate 95 H 93 H 92 H Pulse Rate [ 94 H From Monitor] Respiratory 19 24 21 Rate Blood Pressure 116/57 143/59 O2 Sat by Pulse 100 100 99 Oximetry 01/22/21 01/22/21 01/22/21 00:01 00:11 00:21 Temperature Pulse Rate 94 H 95 H 90 Pulse Rate [ From Monitor] Respiratory 21 21 21 Rate Blood Pressure 152/75 152/75 159/64 O2 Sat by Pulse 99 100 100 Oximetry 01/22/21 01/22/21 01/22/21 00:31 00:41 00:51 Temperature Pulse Rate 93 H 92 H 93 H Pulse Rate [ From Monitor] Respiratory 21 17 22 Rate Blood Pressure 149/71 149/71 142/66 O2 Sat by Pulse 100 100 100 Oximetry 01/22/21 01/22/21 01/22/21 01:01 01:11 01:21 Temperature Pulse Rate 92 H 93 H 88 Pulse Rate [ From Monitor] Respiratory 17 20 19 Rate Blood Pressure 158/71 158/71 152/61 O2 Sat by Pulse 100 100 100 Oximetry 01/22/21 01/22/21 01/22/21 01:31 01:41 01:51 Temperature Pulse Rate 93 H 94 H 93 H Pulse Rate [ From Monitor] Respiratory 21 15 21 Rate Blood Pressure 148/58 148/58 154/58 O2 Sat by Pulse 100 100 100 Oximetry 01/22/21 01/22/21 01/22/21 02:01 02:11 02:21 Temperature Pulse Rate 75 91 H 93 H Pulse Rate [ From Monitor] Respiratory 22 16 19 Rate Blood Pressure 134/61 134/61 143/59 O2 Sat by Pulse 100 100 100 Oximetry 01/22/21 01/22/21 01/22/21 02:31 02:41 02:51 Temperature Pulse Rate 74 82 92 H Pulse Rate [ From Monitor] Respiratory 21 22 21 Rate Blood Pressure 138/63 138/63 139/67 O2 Sat by Pulse 100 100 100 Oximetry 01/22/21 01/22/21 01/22/21 03:01 03:11 03:20 Temperature 98.9 F Pulse Rate 94 H 94 H Pulse Rate [ From Monitor] Respiratory 22 24 Rate Blood Pressure 150/75 150/75 O2 Sat by Pulse 100 100 Oximetry 01/22/21 01/22/21 01/22/21 03:21 03:31 03:41 Temperature Pulse Rate 96 H 82 93 H Pulse Rate [ From Monitor] Respiratory 23 19 16 Rate Blood Pressure 157/61 157/61 160/70 O2 Sat by Pulse 100 98 100 Oximetry 01/22/21 01/22/21 01/22/21 03:51 04:00 04:01 Temperature Pulse Rate 91 H 92 H 82 Pulse Rate [ 82 From Monitor] Respiratory 22 20 20 Rate Blood Pressure 141/53 127/59 O2 Sat by Pulse 100 98 98 Oximetry 01/22/21 01/22/21 01/22/21 04:03 04:11 04:20 Temperature Pulse Rate 87 86 103 H Pulse Rate [ From Monitor] Respiratory 13 19 Rate Blood Pressure 127/59 127/59 134/59 O2 Sat by Pulse 100 100 100 Oximetry 01/22/21 01/22/21 01/22/21 04:31 04:41 04:51 Temperature Pulse Rate 87 93 H 96 H Pulse Rate [ From Monitor] Respiratory 11 L 18 12 Rate Blood Pressure 134/52 134/52 134/52 O2 Sat by Pulse 98 100 Oximetry 01/22/21 01/22/21 01/22/21 05:01 05:11 05:21 Temperature Pulse Rate 95 H 92 H 92 H Pulse Rate [ From Monitor] Respiratory 14 19 13 Rate Blood Pressure 166/58 166/58 166/58 O2 Sat by Pulse 99 100 100 Oximetry 01/22/21 01/22/21 01/22/21 05:31 05:41 05:51 Temperature Pulse Rate 91 H 92 H 92 H Pulse Rate [ From Monitor] Respiratory 13 13 13 Rate Blood Pressure 123/79 123/79 105/57 O2 Sat by Pulse 100 100 100 Oximetry 01/22/21 01/22/21 01/22/21 06:01 06:11 06:21 Temperature Pulse Rate 93 H 93 H 92 H Pulse Rate [ From Monitor] Respiratory 12 17 15 Rate Blood Pressure 129/53 129/53 120/70 O2 Sat by Pulse 99 100 100 Oximetry 01/22/21 01/22/21 01/22/21 06:31 06:41 06:50 Temperature Pulse Rate 90 90 89 Pulse Rate [ From Monitor] Respiratory 14 15 17 Rate Blood Pressure 107/59 107/59 107/59 O2 Sat by Pulse 100 100 100 Oximetry 01/22/21 01/22/21 01/22/21 07:00 07:10 07:21 Temperature Pulse Rate 89 87 88 Pulse Rate [ From Monitor] Respiratory 16 14 16 Rate Blood Pressure 107/46 107/46 144/48 O2 Sat by Pulse 99 100 100 Oximetry 01/22/21 01/22/21 01/22/21 07:29 07:30 07:40 Temperature 97.5 F L Pulse Rate 90 91 H Pulse Rate [ From Monitor] Respiratory 19 15 Rate Blood Pressure 144/48 135/66 O2 Sat by Pulse 100 100 Oximetry 01/22/21 01/22/21 01/22/21 07:51 08:00 08:01 Temperature 97.5 F L Pulse Rate 90 92 H 89 Pulse Rate [ From Monitor] Respiratory 20 17 Rate Blood Pressure 114/56 119/66 O2 Sat by Pulse 100 98 Oximetry 01/22/21 01/22/21 08:05 08:41 Temperature Pulse Rate 89 Pulse Rate [ 93 H From Monitor] Respiratory 19 Rate Blood Pressure 119/66 O2 Sat by Pulse 100 100 Oximetry Constitutional: no acute distress, comatose (secondary to meds for seizure) ENT: other (orally intubated and sedated) Neck: supple Effort: normal Ascultation: Bilateral: clear Cardiovascular: regular rate and rhythm Gastrointestinal: normoactive bowel sounds Integumentary: normal Extremities: no edema, pulses normal CBC and BMP: 01/22/21 04:20 01/22/21 04:20 ABG, PT/INR, D-dimer: ABG ABG pH 7.410 pH Units (7.350-7.450) 01/22/21 04:00 POC ABG pCO2 33.2 mmHg (32.0-48.0) 01/20/21 04:00 ABG pCO2 39.5 mm Hg 01/22/21 04:00 POC ABG pO2 97.9 mmHg (83-108) 01/20/21 04:00 ABG pO2 118.8 mm Hg (80.0-90.0) H 01/22/21 04:00 POC ABG HCO3 26.1 01/20/21 04:00 ABG O2 Saturation 98.3 % (95.0-99.0) 01/22/21 04:00 PT/INR, D-dimer PT 15.2 Sec. (12.2-14.9) H 01/22/21 04:20 INR 1.15 (0.87-1.13) H 01/22/21 04:20 Abnormal lab findings: Abnormal Labs 01/12/21 01/12/21 01/12/21 14:12 14:36 14:36 WBC 11.2 H RBC Hgb Hct MCV MCH 27 L RDW 21.0 H Plt Count Lymph % (Auto) Lymph # (Auto) Seg Neutrophils % 79.6 H Seg Neutrophils # 8.9 H PT INR ABG pH POC ABG pCO2 POC ABG pO2 ABG pO2 ABG Hemoglobin ABG Oxyhemoglobin ABG Sodium ABG Potassium ABG Glucose Sodium 136 L Potassium Chloride 95.8 L Carbon Dioxide 19 L BUN Creatinine 2.0 H Glucose 163 H POC Glucose 166 H Calcium 8.2 L Phosphorus Ammonia Total Protein 5.4 L Albumin 3.4 L TSH Arterial Blood Glucose Arterial Blood Ionized Calcium Phenytoin Valproic Acid 01/13/21 01/13/21 01/13/21 05:19 12:14 16:16 WBC RBC Hgb Hct MCV MCH RDW Plt Count Lymph % (Auto) Lymph # (Auto) Seg Neutrophils % Seg Neutrophils # PT INR ABG pH POC ABG pCO2 POC ABG pO2 ABG pO2 ABG Hemoglobin ABG Oxyhemoglobin ABG Sodium ABG Potassium ABG Glucose Sodium 134 L Potassium Chloride 95.5 L Carbon Dioxide BUN 23 H Creatinine 2.6 H Glucose 168 H POC Glucose 142 H 163 H Calcium Phosphorus Ammonia Total Protein 5.8 L Albumin 3.3 L TSH Arterial Blood Glucose Arterial Blood Ionized Calcium Phenytoin Valproic Acid 01/13/21 01/13/21 01/14/21 20:22 23:57 06:31 WBC RBC Hgb Hct MCV MCH RDW Plt Count Lymph % (Auto) Lymph # (Auto) Seg Neutrophils % Seg Neutrophils # PT INR ABG pH POC ABG pCO2 POC ABG pO2 ABG pO2 ABG Hemoglobin ABG Oxyhemoglobin ABG Sodium ABG Potassium ABG Glucose Sodium Potassium Chloride Carbon Dioxide BUN Creatinine Glucose POC Glucose 209 H 189 H 236 H Calcium Phosphorus Ammonia Total Protein Albumin TSH Arterial Blood Glucose Arterial Blood Ionized Calcium Phenytoin Valproic Acid 01/14/21 01/14/21 01/14/21 08:57 08:57 12:22 WBC 12.0 H RBC Hgb 11.3 L Hct 34.5 L MCV MCH RDW 20.6 H Plt Count Lymph % (Auto) 6.4 L Lymph # (Auto) 0.8 L Seg Neutrophils % 87.4 H Seg Neutrophils # 10.5 H PT INR ABG pH POC ABG pCO2 POC ABG pO2 ABG pO2 ABG Hemoglobin ABG Oxyhemoglobin ABG Sodium ABG Potassium ABG Glucose Sodium 131 L Potassium Chloride 93.7 L Carbon Dioxide BUN 37 H Creatinine 3.7 H Glucose 261 H POC Glucose 280 H Calcium Phosphorus Ammonia Total Protein Albumin TSH Arterial Blood Glucose Arterial Blood Ionized Calcium Phenytoin Valproic Acid 01/14/21 01/14/21 01/15/21 16:15 22:28 04:43 WBC RBC Hgb Hct MCV MCH RDW Plt Count Lymph % (Auto) Lymph # (Auto) Seg Neutrophils % Seg Neutrophils # PT INR ABG pH POC ABG pCO2 POC ABG pO2 ABG pO2 ABG Hemoglobin ABG Oxyhemoglobin ABG Sodium ABG Potassium ABG Glucose Sodium Potassium Chloride Carbon Dioxide BUN Creatinine Glucose POC Glucose 289 H 252 H 243 H Calcium Phosphorus Ammonia Total Protein Albumin TSH Arterial Blood Glucose Arterial Blood Ionized Calcium Phenytoin Valproic Acid 01/15/21 01/15/21 01/15/21 05:22 05:22 08:56 WBC 11.1 H RBC Hgb 11.0 L Hct 33.3 L MCV 83 L MCH 27 L RDW 20.6 H Plt Count Lymph % (Auto) 6.3 L Lymph # (Auto) 0.7 L Seg Neutrophils % 88.2 H Seg Neutrophils # 9.8 H PT INR ABG pH POC ABG pCO2 POC ABG pO2 ABG pO2 ABG Hemoglobin ABG Oxyhemoglobin ABG Sodium ABG Potassium ABG Glucose Sodium 130 L Potassium Chloride 92.0 L Carbon Dioxide BUN 49 H Creatinine 4.2 H Glucose 241 H POC Glucose Calcium Phosphorus Ammonia Total Protein Albumin TSH Arterial Blood Glucose Arterial Blood Ionized Calcium Phenytoin Valproic Acid 45.9 L 01/15/21 01/15/21 01/15/21 16:42 18:14 23:10 WBC RBC Hgb Hct MCV MCH RDW Plt Count Lymph % (Auto) Lymph # (Auto) Seg Neutrophils % Seg Neutrophils # PT INR ABG pH 7.463 H POC ABG pCO2 POC ABG pO2 377.4 H ABG pO2 ABG Hemoglobin 11.6 L ABG Oxyhemoglobin 98.6 H ABG Sodium 130.1 L ABG Potassium ABG Glucose 254 H Sodium Potassium Chloride Carbon Dioxide BUN Creatinine Glucose POC Glucose 218 H 279 H Calcium Phosphorus Ammonia Total Protein Albumin TSH Arterial Blood Glucose 254 H Arterial Blood Ionized Calcium 4.5 L Phenytoin Valproic Acid 01/16/21 01/16/21 01/16/21 03:10 05:11 05:17 WBC RBC Hgb 10.4 L Hct 31.8 L MCV MCH 27 L RDW 20.3 H Plt Count 132 L Lymph % (Auto) Lymph # (Auto) Seg Neutrophils % Seg Neutrophils # PT INR ABG pH POC ABG pCO2 POC ABG pO2 174.4 H ABG pO2 ABG Hemoglobin 10.3 L ABG Oxyhemoglobin 98.6 H ABG Sodium 129.9 L ABG Potassium 3.2 L ABG Glucose 202 H Sodium Potassium Chloride Carbon Dioxide BUN Creatinine Glucose POC Glucose 193 H Calcium Phosphorus Ammonia Total Protein Albumin TSH Arterial Blood Glucose 202 H Arterial Blood Ionized Calcium Phenytoin Valproic Acid 01/16/21 01/16/21 01/16/21 05:17 09:15 11:33 WBC RBC Hgb Hct MCV MCH RDW Plt Count Lymph % (Auto) Lymph # (Auto) Seg Neutrophils % Seg Neutrophils # PT INR ABG pH POC ABG pCO2 POC ABG pO2 ABG pO2 ABG Hemoglobin ABG Oxyhemoglobin ABG Sodium ABG Potassium ABG Glucose Sodium Potassium 3.4 L Chloride Carbon Dioxide BUN 36 H Creatinine 3.2 H Glucose 216 H POC Glucose 174 H Calcium 8.3 L Phosphorus 1.10 L Ammonia Total Protein Albumin TSH Arterial Blood Glucose Arterial Blood Ionized Calcium Phenytoin 6.5 L Valproic Acid 01/16/21 01/17/21 01/17/21 18:13 00:10 04:00 WBC RBC Hgb Hct MCV MCH RDW Plt Count Lymph % (Auto) Lymph # (Auto) Seg Neutrophils % Seg Neutrophils # PT INR ABG pH POC ABG pCO2 POC ABG pO2 ABG pO2 ABG Hemoglobin 10.1 L ABG Oxyhemoglobin ABG Sodium 130.1 L ABG Potassium 3.3 L ABG Glucose 153 H Sodium Potassium Chloride Carbon Dioxide BUN Creatinine Glucose POC Glucose 162 H 150 H Calcium Phosphorus Ammonia Total Protein Albumin TSH Arterial Blood Glucose 153 H Arterial Blood Ionized Calcium Phenytoin Valproic Acid 01/17/21 01/17/21 01/17/21 05:30 05:48 11:14 WBC RBC Hgb Hct MCV MCH RDW Plt Count Lymph % (Auto) Lymph # (Auto) Seg Neutrophils % Seg Neutrophils # PT INR ABG pH POC ABG pCO2 POC ABG pO2 ABG pO2 ABG Hemoglobin ABG Oxyhemoglobin ABG Sodium ABG Potassium ABG Glucose Sodium 136 L Potassium 3.5 L Chloride Carbon Dioxide BUN 48 H Creatinine 3.5 H Glucose 165 H POC Glucose 149 H Calcium 8.0 L Phosphorus 0.80 L* D Ammonia 22.0 L Total Protein Albumin TSH Arterial Blood Glucose Arterial Blood Ionized Calcium Phenytoin Valproic Acid 01/17/21 01/17/21 01/17/21 11:43 17:34 18:46 WBC RBC Hgb Hct MCV MCH RDW Plt Count Lymph % (Auto) Lymph # (Auto) Seg Neutrophils % Seg Neutrophils # PT INR ABG pH POC ABG pCO2 POC ABG pO2 ABG pO2 ABG Hemoglobin ABG Oxyhemoglobin ABG Sodium ABG Potassium ABG Glucose Sodium Potassium Chloride Carbon Dioxide BUN Creatinine Glucose POC Glucose 160 H 209 H Calcium Phosphorus 2.20 L D Ammonia Total Protein Albumin TSH Arterial Blood Glucose Arterial Blood Ionized Calcium Phenytoin Valproic Acid 01/17/21 01/17/21 01/18/21 19:00 23:19 03:28 WBC RBC Hgb Hct MCV MCH RDW Plt Count Lymph % (Auto) Lymph # (Auto) Seg Neutrophils % Seg Neutrophils # PT INR ABG pH POC ABG pCO2 POC ABG pO2 190.2 H ABG pO2 ABG Hemoglobin 11.9 L ABG Oxyhemoglobin 98.5 H ABG Sodium 130.9 L 131.0 L ABG Potassium 3.0 L 2.8 L ABG Glucose 241 H Sodium Potassium Chloride Carbon Dioxide BUN Creatinine Glucose POC Glucose 222 H Calcium Phosphorus Ammonia Total Protein Albumin TSH Arterial Blood Glucose 241 H Arterial Blood Ionized Calcium 4.5 L Phenytoin Valproic Acid 01/18/21 01/18/21 01/18/21 04:16 06:20 10:20 WBC 14.1 H RBC Hgb 11.2 L Hct 34.5 L MCV 83 L MCH 27 L RDW 20.8 H Plt Count 116 L Lymph % (Auto) Lymph # (Auto) Seg Neutrophils % Seg Neutrophils # PT INR ABG pH POC ABG pCO2 POC ABG pO2 ABG pO2 ABG Hemoglobin ABG Oxyhemoglobin ABG Sodium ABG Potassium ABG Glucose Sodium 134 L Potassium 2.9 L* Chloride Carbon Dioxide 21 L BUN 60 H Creatinine 3.9 H Glucose POC Glucose 69 L Calcium Phosphorus 1.60 L D Ammonia Total Protein Albumin TSH Arterial Blood Glucose Arterial Blood Ionized Calcium Phenytoin Valproic Acid 01/18/21 01/18/21 01/18/21 11:29 15:30 17:23 WBC RBC Hgb Hct MCV MCH RDW Plt Count Lymph % (Auto) Lymph # (Auto) Seg Neutrophils % Seg Neutrophils # PT INR ABG pH POC ABG pCO2 POC ABG pO2 ABG pO2 ABG Hemoglobin ABG Oxyhemoglobin ABG Sodium ABG Potassium ABG Glucose Sodium Potassium 3.3 L Chloride Carbon Dioxide BUN 42 H Creatinine 3.1 H Glucose 190 H POC Glucose 128 H 167 H Calcium 8.2 L Phosphorus 1.10 L D Ammonia Total Protein Albumin TSH Arterial Blood Glucose Arterial Blood Ionized Calcium Phenytoin Valproic Acid 01/18/21 01/19/21 01/19/21 23:43 03:43 04:38 WBC RBC Hgb Hct MCV MCH RDW Plt Count Lymph % (Auto) Lymph # (Auto) Seg Neutrophils % Seg Neutrophils # PT INR ABG pH 7.536 H POC ABG pCO2 27.0 L POC ABG pO2 165.8 H ABG pO2 ABG Hemoglobin 10.7 L ABG Oxyhemoglobin 98.4 H ABG Sodium 131.3 L ABG Potassium ABG Glucose 152 H Sodium Potassium Chloride Carbon Dioxide BUN 55 H Creatinine 3.8 H Glucose 143 H POC Glucose 232 H Calcium Phosphorus 1.10 L Ammonia Total Protein Albumin TSH Arterial Blood Glucose 152 H Arterial Blood Ionized Calcium Phenytoin Valproic Acid 01/19/21 01/19/21 01/19/21 05:12 11:36 15:16 WBC RBC Hgb Hct MCV MCH RDW Plt Count Lymph % (Auto) Lymph # (Auto) Seg Neutrophils % Seg Neutrophils # PT INR ABG pH POC ABG pCO2 POC ABG pO2 ABG pO2 ABG Hemoglobin ABG Oxyhemoglobin ABG Sodium ABG Potassium ABG Glucose Sodium Potassium Chloride Carbon Dioxide BUN Creatinine Glucose POC Glucose 135 H 201 H Calcium Phosphorus 1.10 L Ammonia Total Protein Albumin TSH Arterial Blood Glucose Arterial Blood Ionized Calcium Phenytoin Valproic Acid 01/19/21 01/19/21 01/20/21 17:55 23:22 04:00 WBC RBC Hgb Hct MCV MCH RDW Plt Count Lymph % (Auto) Lymph # (Auto) Seg Neutrophils % Seg Neutrophils # PT INR ABG pH 7.513 H POC ABG pCO2 POC ABG pO2 ABG pO2 ABG Hemoglobin 9.9 L ABG Oxyhemoglobin ABG Sodium 129.4 L ABG Potassium ABG Glucose 196 H Sodium Potassium Chloride Carbon Dioxide BUN Creatinine Glucose POC Glucose 222 H 252 H Calcium Phosphorus Ammonia Total Protein Albumin TSH Arterial Blood Glucose 196 H Arterial Blood Ionized Calcium Phenytoin Valproic Acid 01/20/21 01/20/21 01/20/21 05:15 11:15 14:49 WBC 16.1 H RBC Hgb 9.9 L Hct 30.3 L MCV 82 L MCH 27 L RDW 20.7 H Plt Count 114 L Lymph % (Auto) Lymph # (Auto) Seg Neutrophils % Seg Neutrophils # PT INR ABG pH POC ABG pCO2 POC ABG pO2 ABG pO2 ABG Hemoglobin ABG Oxyhemoglobin ABG Sodium ABG Potassium ABG Glucose Sodium Potassium Chloride Carbon Dioxide BUN Creatinine Glucose POC Glucose 163 H 149 H Calcium Phosphorus Ammonia Total Protein Albumin TSH Arterial Blood Glucose Arterial Blood Ionized Calcium Phenytoin Valproic Acid 01/20/21 01/20/21 01/20/21 14:49 14:49 17:12 WBC RBC Hgb Hct MCV MCH RDW Plt Count Lymph % (Auto) Lymph # (Auto) Seg Neutrophils % Seg Neutrophils # PT INR ABG pH POC ABG pCO2 POC ABG pO2 ABG pO2 ABG Hemoglobin ABG Oxyhemoglobin ABG Sodium ABG Potassium ABG Glucose Sodium 133 L Potassium Chloride 95.8 L Carbon Dioxide BUN 48 H Creatinine 3.1 H Glucose 167 H POC Glucose 155 H Calcium Phosphorus 0.80 L* D Ammonia Total Protein Albumin TSH Arterial Blood Glucose Arterial Blood Ionized Calcium Phenytoin Valproic Acid 48.4 L 01/21/21 01/21/21 01/21/21 00:55 05:20 06:39 WBC 17.5 H RBC 3.62 L Hgb 9.6 L Hct 29.7 L MCV 82 L MCH 26 L RDW 21.4 H Plt Count 126 L Lymph % (Auto) Lymph # (Auto) Seg Neutrophils % Seg Neutrophils # PT INR ABG pH POC ABG pCO2 POC ABG pO2 ABG pO2 ABG Hemoglobin ABG Oxyhemoglobin ABG Sodium ABG Potassium ABG Glucose Sodium Potassium Chloride Carbon Dioxide BUN Creatinine Glucose POC Glucose 134 H 170 H Calcium Phosphorus Ammonia Total Protein Albumin TSH Arterial Blood Glucose Arterial Blood Ionized Calcium Phenytoin Valproic Acid 01/21/21 01/21/21 01/21/21 06:39 11:32 17:41 WBC RBC Hgb Hct MCV MCH RDW Plt Count Lymph % (Auto) Lymph # (Auto) Seg Neutrophils % Seg Neutrophils # PT INR ABG pH POC ABG pCO2 POC ABG pO2 ABG pO2 ABG Hemoglobin ABG Oxyhemoglobin ABG Sodium ABG Potassium ABG Glucose Sodium 133 L Potassium Chloride 95.9 L Carbon Dioxide BUN 56 H Creatinine 3.2 H Glucose 159 H POC Glucose 159 H 137 H Calcium Phosphorus 2.30 L D Ammonia Total Protein Albumin TSH Arterial Blood Glucose Arterial Blood Ionized Calcium Phenytoin Valproic Acid 01/21/21 01/22/21 01/22/21 23:48 04:00 04:20 WBC 14.0 H RBC 3.47 L Hgb 9.3 L Hct 28.6 L MCV 83 L MCH 27 L RDW 21.4 H Plt Count 129 L Lymph % (Auto) Lymph # (Auto) Seg Neutrophils % Seg Neutrophils # PT INR ABG pH POC ABG pCO2 POC ABG pO2 ABG pO2 118.8 H ABG Hemoglobin 9.6 L ABG Oxyhemoglobin ABG Sodium ABG Potassium ABG Glucose Sodium Potassium Chloride Carbon Dioxide BUN Creatinine Glucose POC Glucose 203 H Calcium Phosphorus Ammonia Total Protein Albumin TSH Arterial Blood Glucose Arterial Blood Ionized Calcium Phenytoin Valproic Acid 01/22/21 01/22/21 01/22/21 04:20 04:20 04:20 WBC RBC Hgb Hct MCV MCH RDW Plt Count Lymph % (Auto) Lymph # (Auto) Seg Neutrophils % Seg Neutrophils # PT INR ABG pH POC ABG pCO2 POC ABG pO2 ABG pO2 ABG Hemoglobin ABG Oxyhemoglobin ABG Sodium ABG Potassium ABG Glucose Sodium 131 L Potassium Chloride 92.9 L Carbon Dioxide 21 L BUN 69 H Creatinine 3.9 H Glucose 230 H POC Glucose Calcium 8.1 L Phosphorus Ammonia 19.0 L Total Protein 5.2 L Albumin 1.9 L TSH 4.730 H Arterial Blood Glucose Arterial Blood Ionized Calcium Phenytoin Valproic Acid 01/22/21 01/22/21 04:20 05:14 WBC RBC Hgb Hct MCV MCH RDW Plt Count Lymph % (Auto) Lymph # (Auto) Seg Neutrophils % Seg Neutrophils # PT 15.2 H INR 1.15 H ABG pH POC ABG pCO2 POC ABG pO2 ABG pO2 ABG Hemoglobin ABG Oxyhemoglobin ABG Sodium ABG Potassium ABG Glucose Sodium Potassium Chloride Carbon Dioxide BUN Creatinine Glucose POC Glucose 213 H Calcium Phosphorus Ammonia Total Protein Albumin TSH Arterial Blood Glucose Arterial Blood Ionized Calcium Phenytoin Valproic Acid
--- NOTE | 2021-01-22 10:35 | Progress Note ---
Assessment and Plan Assessment and plan: 80-year-old male with ESRD on HD, HTN, CAD, cerebral arthrosclerosis, vascular dementia who is admitted for new onset seizures. On 01/15 patient was transferred to ICU and intubated for possible status epilepticus. Neuro: New onset seizure disorder; possibly be in status epilepticus vascular dementia chronic SDH cerebral atherosclerosis Neurology consulted, appreciate recommendations CT of the brain noted, no signs of acute infarct MRI showing subacute to chronic subdural hematoma. 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 -Celebrex, Keppra, Depacon -01/14 EEG is significantly abnormal, diffuse background slowing in 3-4 Hz, patient had a vertex waves and sleep spindles noted bilaterally and centrally, 2 events of facial twitching with associated generalized tonic/clonic activities, lasting for at least 15 seconds each followed by suppressions, findings suggestive of encephalopathic process and/or higher tendency of possible focal seizures with generalization, possibility of source of blood loss cannot be totally excluded -01/15 EEG shows burst suppression pattern, intermittent sharp electric activity is noted throughout the recording, pronounced in the right frontal region, findings consistent with generalized seizure activity -01/16 EEG shows findings of generalized burst suppression as well as recurrent triphasic waves sinuses Rocephin for the process, and her drug effect, reports after stage cannot be excluded, possibility of toxic metabolic and/or hepatic and/or renal insufficiency cannot be excluded -01/17 EEG shows significant improvement previous recording, no epileptiform discharges noted, no runs of sharp looking activity is appreciated, intermittent triphasic waves noted mostly bifrontally and improvement in the background activity to 4-6 Hz noted throughout the recording, concerning suggestive of mild encephalopathic process and/or postictal state of possibility of flexor metabolic etiology cannot be totally excluded -01/18 EEG interpreted as mildly encephalopathic process with background 4-5 Hz noted throughout the recording with triphasic waves noted occasionally and vertex waves centrally more pronounced on the left side, no epileptiform discharge appreciated, suggestive of possible toxic metabolic and/or drug effect, possibility of postictal state cannot be totally excluded -Aspiration and seizures precautions -PERRL; no commands; no movement; cough; gag; opens eyes worsening neuro status today v yesterday repeat head CT nothing acute noted UDS has been reordered- no urine on straight cath today - send if able to get urine on keppra 250 mg daily - discussed with pharm; will change to p HD for it is dialyzed out no further sz in the last 24 hours continue to monitor PRN pain meds home timolol no mind altering meds such as narcotics that would complicate neuro exam family updated on plan of care and they are discussing goals of care case management following GOAL: CONTINUE TO MONITOR MENTAL STATUS AND FOR SZ CONTINUE TO SUPPORT FAMILY THEY MAKE GOALS OF CARE DECISIONS Cardio: History of hypertension afib CVR in afib overnight rate 100-110 MAP is less than in SR but still 65-70 EKG this AM on home cardura no pressors statin holding asa due to SDH GOAL MONITOR AFIB AND BP; IF MAP FALLS < 65 NOTIFY TEAM FOR MANAGEMENT Resp: Acute hypoxic respiratory failure -Intubated 01/15 for possible status epilepticus however patient was extubated on 01/17 and had to be reintubated on 01/17 for hypoxia -Wean mechanical ventilation as tolerated see EMR for vent titration -VAP bundle -SPO2 monitoring per protocol -Serial ABGs and CXR -likely will need trach - family has been updated by Dr Gatica and they are discussing goals of care -nebs prn -chest xray noted this AM- no consolidation or infiltrate GOAL: PS/wean as tolerated GI Severe dysphagia; Failure to thrive Chronic PEG tube -On tube feedings changed 01-21 from nephro due to lowphos k phos supplements added -nutrition following bowel reg PPI GOAL: maximize nutritional state End-stage renal disease on HD Nephrology following Dialysis per renal team tolerating HD this AM -Avoid nephrotoxic medications Hypophosphatemia- improving -KPhos scheduled -resume home renal meds when appropriate HypoNa Uremia- trend oliguria no rtinidad; requiring bladder scan and PRN straight caths pt net pos 1.8L over the last 24 hours GOAL: follow electrolytes; defer to nephrology for HD/fluid management Heme: a/c anemia Anemia of chronic disease -Admit H/H 12.339 -Transfuse for hemoglobin less than 7 epo for chronic anemia Thrombocytopenia improving -Hold anticouagualtion in setting of chronic SDH trend CBC- ordered for AM VTE- no AC given SDH GOAL: CONTINUE TO MONITOR ID: leukocytosis -01/13 nares: MRSA positive -01/15 tracheal aspirate with gram-negative rods, mod growth-- pseudomonas dc levaquin due to lowering of sz threshold -if pt spikes fever- reculture and consider antibiotics -PRN tylenol for fever -skin care per RN GOAL: CONTINUE TO MONITOR; PREVENT NOSOCOMIAL INFECTIONS Endo- DM monitor blood glucose avoid hypoglycemia if TF are interrupted hold rapid acting agents home linagliptin, lispro, tradjenta GOAL: MAINTAIN NORMAL BLOOD GLUCOSE History Interval history: This 80-year-old male who is a resident of a long-term facility with ESRD on HD Thursday, , Thursday), hyperlipidemia, hypertension, vascular dementia, cerebral sclerosis presents to the emergency department after suspected cardiac arrest and initiation of ACLS at the dialysis center 01/12/2021 however upon EMS arrival patient was noted to be actively seizing and chest compressions were discontinued. Upon arrival to the emergency department patient was found to have new onset seizure disorder, acidosis. Nephrology was consulted for ESRD. Patient was initially admitted to the telemetry floor under observation. 01/13/2021. Seizure precautions. Continue IV Keppra and await neurology evaluation. Check EEG and MRI. CT scan negative. Continue hemodialysis per nephrology recommendations. 01/14/2021. Patient is somnolent and lethargic. However, no new seizure activity noted. CT brain is remarkable for white matter changes. Continue seizure precautions. Follow-up EEG and MRI brain. Neurology decrease Keppra to 250 mg twice daily. Ativan as needed for seizure. Continue hemodialysis per nephrology recommendations. 01/15/2021: There is no overt seizure activity, however patient continues to be nonverbal. Patient seen after dialysis. Patient is not responsive to any verbal cues. Patient is moaning. 01/16: Patient had EEG today and was noted to be having seizure activity on 2 mg of Versed and this was uptitrated to 3 mg Versed. Neurology has been informed. Hypokalemia and hypophosphatemia addressed. Likely HD tomorrow. 01/17: Repeat EEG completed today. Severe hypophosphatemia noted today, repleted with IV phos. HD scheduled today. 01/18: Repeat EEG today per neuro, HD per nephro. Hypokalemia today to 2.9 and hypophosphatemia to 1.6, patient received 40 M EQ of KCl, PhosNak for 1 day. Will obtain pm labs. Pateint is less responsive today but Neuro does not think he had another seizure. Thrombocytopenia, will trend CBC. Patient became hypoxic towards the end of dialysis and failed BiPAP therapy and had to be intubated for hypoxia. 01/19: UDS shows presumptive benzo, HD today per nephro, Phos remains low but still has not completed supplementation. Nephro suggests flumazenil. 01/20: On CMV tidal volume 550, rate of 18, PEEP of 6 on 45% FiO2, patient has a better physical exam with neurology this morning. AM labs pending. 01/20 no acute events overnight 01/21 noted to be in afib this AM Disposition Plan: tbd Total Time Spent with Patient (Minutes): 60 History Interval history: noted to be in afib this AM- Rate 100 but MAP less Hospitalist Physical - Constitutional Vitals: Temp Pulse Resp BP Pulse Ox 97.5 F L 89 19 119/66 100 01/22/21 08:00 01/22/21 08:41 01/22/21 08:05 01/22/21 08:41 01/22/21 08:41 General appearance: Present: no acute distress - EENT Eyes: Present: PERRL ENT: clear oral mucosa - Neck Neck: Present: supple - Respiratory Respiratory effort: normal - Cardiovascular Rhythm: irregularly irregular Heart Sounds: Present: S1 & S2 - Extremities Extremities: no ischemia Peripheral Pulses: within normal limits - Abdominal General gastrointestinal: soft - Integumentary Integumentary: Present: clear, warm, dry - Psychiatric Psychiatric: other - Allied Health Allied health notes reviewed: nursing, RT, social work, case management Results - Labs CBC & Chem 7: 01/22/21 04:20 01/22/21 04:20 Labs: Laboratory Last Values WBC 14.0 K/mm3 (4.5-11.0) H 01/22/21 04:20 RBC 3.47 M/mm3 (3.65-5.03) L 01/22/21 04:20 Hgb 9.3 gm/dl (11.8-15.2) L 01/22/21 04:20 Hct 28.6 % (35.5-45.6) L 01/22/21 04:20 MCV 83 fl (84-94) L 01/22/21 04:20 MCH 27 pg (28-32) L 01/22/21 04:20 MCHC 33 % (32-34) 01/22/21 04:20 RDW 21.4 % (13.2-15.2) H 01/22/21 04:20 Plt Count 129 K/mm3 (140-440) L 01/22/21 04:20 Lymph % (Auto) 6.3 % (13.4-35.0) L 01/15/21 05:22 M[place]ulloch % (Auto) 5.4 % (0.0-7.3) 01/15/21 05:22 Eos % (Auto) 0.0 % (0.0-4.3) 01/15/21 05:22 Baso % (Auto) 0.1 % (0.0-1.8) 01/15/21 05:22 Lymph # (Auto) 0.7 K/mm3 (1.2-5.4) L 01/15/21 05:22 [place] # (Auto) 0.6 K/mm3 (0.0-0.8) 01/15/21 05:22 Eos # (Auto) 0.0 K/mm3 (0.0-0.4) 01/15/21 05:22 Baso # (Auto) 0.0 K/mm3 (0.0-0.1) 01/15/21 05:22 Seg Neutrophils % 88.2 % (40.0-70.0) H 01/15/21 05:22 Seg Neutrophils # 9.8 K/mm3 (1.8-7.7) H 01/15/21 05:22 PT 15.2 Sec. (12.2-14.9) H 01/22/21 04:20 INR 1.15 (0.87-1.13) H 01/22/21 04:20 ABG pH 7.410 pH Units (7.350-7.450) 01/22/21 04:00 POC ABG pCO2 33.2 mmHg (32.0-48.0) 01/20/21 04:00 ABG pCO2 39.5 mm Hg 01/22/21 04:00 POC ABG pO2 97.9 mmHg (83-108) 01/20/21 04:00 ABG pO2 118.8 mm Hg (80.0-90.0) H 01/22/21 04:00 POC ABG HCO3 26.1 01/20/21 04:00 ABG HCO3 24.5 mmol/L (20.0-26.0) 01/22/21 04:00 ABG O2 Saturation 98.3 % (95.0-99.0) 01/22/21 04:00 ABG O2 Content 13.2 (0.0-44) 01/22/21 04:00 POC ABG Base Excess 3.2 01/20/21 04:00 ABG Base Excess -0.1 mmol/L (-2.0-3.0) 01/22/21 04:00 ABG Hemoglobin 9.6 gm/dl (14.0-18.0) L 01/22/21 04:00 ABG Oxyhemoglobin 96.4 (94-98) 01/20/21 04:00 ABG Carboxyhemoglobin 1.5 % (0.0-5.0) 01/22/21 04:00 ABG Methemoglobin 0.3 % (0.0-1.5) 01/22/21 04:00 ABG Sodium 129.4 mmol/L (136.0-145.0) L 01/20/21 04:00 ABG Potassium 3.6 mmol/L (3.40-4.50) 01/20/21 04:00 ABG Chloride 100.0 mmol/L (98-107) 01/20/21 04:00 ABG Glucose 196 mg/dL (65-95) H 01/20/21 04:00 Oxyhemoglobin 96.5 % (95.0-99.0) 01/22/21 04:00 Carboxyhemoglobin 1.4 (0.5-1.5) 01/20/21 04:00 FiO2 35 % 01/22/21 04:00 FiO2 % 45.0 01/20/21 04:00 Sodium 131 mmol/L (137-145) L 01/22/21 04:20 Potassium 3.9 mmol/L (3.6-5.0) 01/22/21 04:20 Chloride 92.9 mmol/L (98-107) L 01/22/21 04:20 Carbon Dioxide 21 mmol/L (22-30) L 01/22/21 04:20 Anion Gap 21 mmol/L 01/22/21 04:20 BUN 69 mg/dL (9-20) H 01/22/21 04:20 Creatinine 3.9 mg/dL (0.8-1.3) H 01/22/21 04:20 Estimated GFR 18 ml/min 01/22/21 04:20 BUN/Creatinine Ratio 18 % 01/22/21 04:20 Glucose 230 mg/dL (75-100) H 01/22/21 04:20 POC Glucose 213 mg/dL (70-105) H 01/22/21 05:14 Calcium 8.1 mg/dL (8.4-10.2) L 01/22/21 04:20 Phosphorus 3.70 mg/dL (2.5-4.5) D 01/22/21 04:20 Magnesium 2.00 mg/dL (1.7-2.3) 01/22/21 04:20 Total Bilirubin 0.20 mg/dL (0.1-1.2) 01/22/21 04:20 Direct Bilirubin < 0.2 mg/dL (0-0.2) 01/12/21 14:36 Indirect Bilirubin 0.1 mg/dL 01/12/21 14:36 AST 37 units/L (5-40) 01/22/21 04:20 ALT 23 units/L (7-56) 01/22/21 04:20 Alkaline Phosphatase 108 units/L (35-129) 01/22/21 04:20 Ammonia 19.0 umol/L (25-60) L 01/22/21 04:20 Total Protein 5.2 g/dL (6.3-8.2) L 01/22/21 04:20 Albumin 1.9 g/dL (3.9-5) L 01/22/21 04:20 Albumin/Globulin Ratio 0.6 % 01/22/21 04:20 TSH 4.730 mlU/mL (0.270-4.200) H 01/22/21 04:20 Arterial Blood Glucose 196 mg/dL (65-95) H 01/20/21 04:00 Arterial Blood Ionized Calcium 4.6 mg/dL (4.6-5.3) 01/20/21 04:00 Nasal Screen MRSA (PCR) Positive (Negative) 01/13/21 Unknown Urine Opiates Screen Negative 01/18/21 14:25 Urine Methadone Screen Negative 01/18/21 14:25 Ur Barbiturates Screen Negative 01/18/21 14:25 Phenytoin 6.5 ug/mL (10.0-20.0) L 01/16/21 09:15 Valproic Acid 48.4 ug/mL (50-100) L 01/20/21 14:49 Ur Phencyclidine Scrn Negative 01/18/21 14:25 Ur Amphetamines Screen Negative 01/18/21 14:25 U Benzodiazepines Scrn Presumptive positive 01/18/21 14:25 Urine Cocaine Screen Negative 01/18/21 14:25 U Marijuana (THC) Screen Negative 01/18/21 14:25 Drugs of Abuse Note Disclamer 01/18/21 14:25 Coronavirus (PCR) Negative (Negative) 01/15/21 08:00 Hepatitis A IgM Ab Non-reactive (NonReactive) 01/15/21 09:15 Hep Bs Antigen Non-reactive (Negative) 01/15/21 09:15 Hep B Core IgM Ab Non-reactive (NonReactive) 01/15/21 09:15 Hepatitis C Antibody Non-reactive (NonReactive) 01/15/21 09:15 - Imaging and Cardiology EKG: other Chest x-ray: other [place]/IV: Voiding Method Incontinent Active Medications - Current Medications Current Medications: Generic Name Dose Route Start Last Admin Trade Name Freq PRN Reason Stop Dose Admin Acetaminophen 650 mg 01/12/21 19:30 Acetaminophen 325 Mg Tab PO Q4H PRN Pain MILD(1-3)/Fever >100.5/ABEL Albuterol 2.5 mg 01/12/21 19:30 Albuterol 2.5 Mg/3 Ml Nebu IH Q4HRT PRN Shortness Of Breath Lipase/Protease/Amylase 1 each 01/13/21 10:11 Lipase 10,500/Protease 25,000/Amylase 43,750 (Units) Dr Silveira FEEDTUBE PRN PRN For Clogged Feeding Tube Atorvastatin Calcium 40 mg 01/12/21 22:00 01/21/21 21:31 Atorvastatin 40 Mg Tab PO 40 mg QHS NOLAN Administration Calcitriol 1 mcg 01/13/21 10:00 01/21/21 09:07 Calcitriol 0.5 Mcg Cap PO 1 mcg QDAY NOLAN Administration Docusate Sodium 100 mg 01/17/21 09:00 Docusate Sodium 100 Mg/10 Ml Oral Liqd PO BID PRN Constipation Doxazosin Mesylate 2 mg 01/18/21 10:00 01/21/21 09:07 Doxazosin 1 Mg Tab PO 2 mg QDAY NOLAN Administration Hydrophilic Ointment 1 applic 01/15/21 17:14 Lip Therapy Vaseline TP Q2HR PRN Dry Lips Sodium Chloride 100 mls @ 999 mls/hr 01/15/21 08:00 Nacl 0.9% IV DIONNA PRN Hypotension Levetiracetam 250 mg/ Dextrose 52.5 mls @ 200 mls/hr 01/20/21 13:00 01/21/21 09:47 IV 200 mls/hr DAILY NOLAN Administration Insulin Human Lispro 0 unit 01/16/21 00:00 01/22/21 05:57 Insulin Lispro 100 Unit/Ml SUB-Q 2 unit Q6HR NOLAN Administration Protocol Lansoprazole 30 mg 01/12/21 22:00 01/21/21 21:31 Lansoprazole 30 Mg Solutab FEEDTUBE 30 mg BID NOLAN Administration Linagliptin 5 mg 01/13/21 11:00 01/22/21 08:01 Linagliptin 5 Mg Tab PO 5 mg QDDIAB NOLAN Administration Multi-Ingred Cream/Lotion/Oil/Oint 1 applic 01/15/21 17:14 Mineral Oil/Petrolatum, White Ophth Oint 3.5 Gm OU Q4HR PRN Dry Eye(s) Ondansetron HCl 4 mg 01/12/21 19:30 Ondansetron 4 Mg/2 Ml Inj IV Q8H PRN Nausea And Vomiting Simple Syrup 15 ml 01/13/21 10:11 01/18/21 06:54 Simple Syrup 15 Ml FEEDTUBE 15 ml PRN PRN Administration Hypoglycemia Simple Syrup 30 ml 01/13/21 10:11 Simple Syrup 15 Ml FEEDTUBE PRN PRN Hypoglycemia Sodium Bicarbonate 325 mg 01/13/21 10:11 Sodium Bicarbonate 325 Mg Tab FEEDTUBE PRN PRN For Clogged Feeding Tube Sodium Chloride 10 ml 01/12/21 22:00 01/21/21 21:32 Sodium Chloride 0.9% 10 Ml Flush Syringe IV 10 ml BID NOLAN Administration Timolol Maleate 1 drops 01/17/21 10:00 01/21/21 09:08 Timolol 0.5% Ophth Soln 5 Ml OU 1 drops QDAY NOLAN Administration Nutrition/Malnutrition Assess - Dietary Evaluation Nutrition/Malnutrition Findings: Nutrition Notes Start: 01/13/21 10:03 Freq: Status: Active Protocol: Document 01/21/21 12:27 NANCY (Rec: 01/21/21 12:42 [email or web address] [email or web address]) Nutrition Notes Initial or Follow up Reassessment Current Diagnosis CKD (stage V CKD),Diabetes, Hypertension Other Pertinent Diagnosis Chronic seizure d/o Current Diet TF- Nepro at 38ml/hr Labs/Tests Na 133 BUN 56 Cr 3.2 BG 159 Phos 2.3 Pertinent Medications Reviewed Height 5 ft 9 in Weight 56.1 kg [place] Body Weight (kg) 72.72 BMI 18.2 Weight Status Underweight Subjective/Other Information Spoke with MD and RN via phone this am; nephrology wants TF formula change sec to persistent hypophosphatemia ( despite replacement). Burn Absent Trauma Absent #2 Nutrition Diagnosis Increased nutrient needs ( specify in comment below) Diagnosis Progress(for reassessment Continues documentation) #1 Nutrition Diagnosis Inadequate oral intake Diagnosis Progress(for reassessment Continues documentation) Is patient on ventilator? Yes Is Patient Ambulatory and/or Out of Bed No REE-([facility]-confined to bed) 1508.844 Kcal/Kg value to use for calculation 35 Approximate Energy Requirements Using 1964 kcal/Kg Calculation Used for Recommendations Kcal/kg Additional Notes Pro needs >1.2g/kg: >67g/day Fluid needs 1-1.5L/day Nutrition Intervention Nutrition Support: Osmolite 1.5 at 50ml/hr with 150ml water flush q4h. Provides 2200mg K, 1200mg Phos , 1680mg Na. Kcal 1,800 Protein (gm) 75 Carbohydrates (gm) 244 Fat (gm) 59 Fluid (mL) 914 Fiber (gm) 0 Goal #1 TF tolerance Goal #2 TF to meet 80-100% energy and pro needs Goal #3 Wt maintenance and/or gain Follow-Up By: 01/23/21 Additional Comments F/U: TF formula change/ tolerance, labs (BG, K, Na, Phos), vent status - Attestation Statement I have reviewed and agreed w/ Malnutrition eval & tx plan: Yes
[2021-01-22] MEDS: levETIRAcetam 250 MG in DEXTROSE 5% IN WATER (50 ML) 50 ML IV SCH (11:32)
[2021-01-22] MEDS: TIMOLOL 0.5% OPHTH SOLN 5 ML OU SCH (11:33)
[2021-01-22] MEDS: CALCITRIOL 0.5 MCG CAP PO SCH (11:43)
[2021-01-22] MEDS: LANSOPRAZOLE 30 MG SOLUTAB FEEDTUBE SCH ×2 (11:44→21:40)
[2021-01-22] MEDS: DOXAZOSIN 1 MG TAB PO SCH (11:44)
--- NOTE | 2021-01-22 12:19 | Progress Note ---
Assessment and Plan Assessment and plan: 80 [facility]O Male [facility] Resident with ESRD on HD(T,R,Sa), HLD, HTN, Vascular Dementia, Cerebral Atherosclerosi admitted with diagnosis of new onset seizure. Patient was started on IV Keppra. Patient has had no new seizure activity. New onset seizure disorder. Vascular dementia Cerebral atherosclerosis ESRD 01/13/2021. Seizure precautions. Continue IV Keppra and await neurology eval uation. Check EEG and MRI. CT scan negative. Continue hemodialysis per nephrology recommendations. 01/14/2021. Patient is somnolent and lethargic. However, no new seizure activity noted. CT brain is remarkable for white matter changes. Continue seizure precautions. Follow-up EEG and MRI brain. Neurology decrease Keppra to 250 mg twice daily. Ativan as needed for seizure. Continue hemodialysis per nephrology recommendations. History Interval history: No new issues Hospitalist Physical - Constitutional Vitals: Temp Pulse Resp BP Pulse Ox 97.5 F L 111 H 17 105/45 98 01/22/21 08:00 01/22/21 11:44 01/22/21 11:31 01/22/21 11:44 01/22/21 11:31 General appearance: Present: no acute distress - EENT Eyes: Present: PERRL, EOM intact ENT: hearing intact, clear oral mucosa, dentition normal - Neck Neck: Present: supple, normal ROM - Respiratory Respiratory effort: normal Respiratory: bilateral: CTA - Cardiovascular Rhythm: regular Heart Sounds: Present: S1 & S2. Absent: gallop, rub - Extremities Extremities: no ischemia, No edema, Full ROM - Abdominal General gastrointestinal: soft, non-tender, non-distended, normal bowel sounds - Integumentary Integumentary: Present: clear, warm, dry - Neurologic Neurologic: CNII-XII intact, moves all extremities Results - Labs CBC & Chem 7: 01/22/21 04:20 01/22/21 04:20 Labs: Laboratory Last Values WBC 14.0 K/mm3 (4.5-11.0) H 01/22/21 04:20 RBC 3.47 M/mm3 (3.65-5.03) L 01/22/21 04:20 Hgb 9.3 gm/dl (11.8-15.2) L 01/22/21 04:20 Hct 28.6 % (35.5-45.6) L 01/22/21 04:20 MCV 83 fl (84-94) L 01/22/21 04:20 MCH 27 pg (28-32) L 01/22/21 04:20 MCHC 33 % (32-34) 01/22/21 04:20 RDW 21.4 % (13.2-15.2) H 01/22/21 04:20 Plt Count 129 K/mm3 (140-440) L 01/22/21 04:20 Lymph % (Auto) 6.3 % (13.4-35.0) L 01/15/21 05:22 Dougherty % (Auto) 5.4 % (0.0-7.3) 01/15/21 05:22 Eos % (Auto) 0.0 % (0.0-4.3) 01/15/21 05:22 Baso % (Auto) 0.1 % (0.0-1.8) 01/15/21 05:22 Lymph # (Auto) 0.7 K/mm3 (1.2-5.4) L 01/15/21 05:22 Dougherty # (Auto) 0.6 K/mm3 (0.0-0.8) 01/15/21 05:22 Eos # (Auto) 0.0 K/mm3 (0.0-0.4) 01/15/21 05:22 Baso # (Auto) 0.0 K/mm3 (0.0-0.1) 01/15/21 05:22 Seg Neutrophils % 88.2 % (40.0-70.0) H 01/15/21 05:22 Seg Neutrophils # 9.8 K/mm3 (1.8-7.7) H 01/15/21 05:22 PT 15.2 Sec. (12.2-14.9) H 01/22/21 04:20 INR 1.15 (0.87-1.13) H 01/22/21 04:20 ABG pH 7.410 pH Units (7.350-7.450) 01/22/21 04:00 POC ABG pCO2 33.2 mmHg (32.0-48.0) 01/20/21 04:00 ABG pCO2 39.5 mm Hg 01/22/21 04:00 POC ABG pO2 97.9 mmHg (83-108) 01/20/21 04:00 ABG pO2 118.8 mm Hg (80.0-90.0) H 01/22/21 04:00 POC ABG HCO3 26.1 01/20/21 04:00 ABG HCO3 24.5 mmol/L (20.0-26.0) 01/22/21 04:00 ABG O2 Saturation 98.3 % (95.0-99.0) 01/22/21 04:00 ABG O2 Content 13.2 (0.0-44) 01/22/21 04:00 POC ABG Base Excess 3.2 01/20/21 04:00 ABG Base Excess -0.1 mmol/L (-2.0-3.0) 01/22/21 04:00 ABG Hemoglobin 9.6 gm/dl (14.0-18.0) L 01/22/21 04:00 ABG Oxyhemoglobin 96.4 (94-98) 01/20/21 04:00 ABG Carboxyhemoglobin 1.5 % (0.0-5.0) 01/22/21 04:00 ABG Methemoglobin 0.3 % (0.0-1.5) 01/22/21 04:00 ABG Sodium 129.4 mmol/L (136.0-145.0) L 01/20/21 04:00 ABG Potassium 3.6 mmol/L (3.40-4.50) 01/20/21 04:00 ABG Chloride 100.0 mmol/L (98-107) 01/20/21 04:00 ABG Glucose 196 mg/dL (65-95) H 01/20/21 04:00 Oxyhemoglobin 96.5 % (95.0-99.0) 01/22/21 04:00 Carboxyhemoglobin 1.4 (0.5-1.5) 01/20/21 04:00 FiO2 35 % 01/22/21 04:00 FiO2 % 45.0 01/20/21 04:00 Sodium 131 mmol/L (137-145) L 01/22/21 04:20 Potassium 3.9 mmol/L (3.6-5.0) 01/22/21 04:20 Chloride 92.9 mmol/L (98-107) L 01/22/21 04:20 Carbon Dioxide 21 mmol/L (22-30) L 01/22/21 04:20 Anion Gap 21 mmol/L 01/22/21 04:20 BUN 69 mg/dL (9-20) H 01/22/21 04:20 Creatinine 3.9 mg/dL (0.8-1.3) H 01/22/21 04:20 Estimated GFR 18 ml/min 01/22/21 04:20 BUN/Creatinine Ratio 18 % 01/22/21 04:20 Glucose 230 mg/dL (75-100) H 01/22/21 04:20 POC Glucose 151 mg/dL (70-105) H 01/22/21 11:36 Calcium 8.1 mg/dL (8.4-10.2) L 01/22/21 04:20 Phosphorus 3.70 mg/dL (2.5-4.5) D 01/22/21 04:20 Magnesium 2.00 mg/dL (1.7-2.3) 01/22/21 04:20 Total Bilirubin 0.20 mg/dL (0.1-1.2) 01/22/21 04:20 Direct Bilirubin < 0.2 mg/dL (0-0.2) 01/12/21 14:36 Indirect Bilirubin 0.1 mg/dL 01/12/21 14:36 AST 37 units/L (5-40) 01/22/21 04:20 ALT 23 units/L (7-56) 01/22/21 04:20 Alkaline Phosphatase 108 units/L (35-129) 01/22/21 04:20 Ammonia 19.0 umol/L (25-60) L 01/22/21 04:20 Total Protein 5.2 g/dL (6.3-8.2) L 01/22/21 04:20 Albumin 1.9 g/dL (3.9-5) L 01/22/21 04:20 Albumin/Globulin Ratio 0.6 % 01/22/21 04:20 TSH 4.730 mlU/mL (0.270-4.200) H 01/22/21 04:20 Arterial Blood Glucose 196 mg/dL (65-95) H 01/20/21 04:00 Arterial Blood Ionized Calcium 4.6 mg/dL (4.6-5.3) 01/20/21 04:00 Nasal Screen MRSA (PCR) Positive (Negative) 01/13/21 Unknown Urine Opiates Screen Negative 01/18/21 14:25 Urine Methadone Screen Negative 01/18/21 14:25 Ur Barbiturates Screen Negative 01/18/21 14:25 Phenytoin 6.5 ug/mL (10.0-20.0) L 01/16/21 09:15 Valproic Acid 48.4 ug/mL (50-100) L 01/20/21 14:49 Ur Phencyclidine Scrn Negative 01/18/21 14:25 Ur Amphetamines Screen Negative 01/18/21 14:25 U Benzodiazepines Scrn Presumptive positive 01/18/21 14:25 Urine Cocaine Screen Negative 01/18/21 14:25 U Marijuana (THC) Screen Negative 01/18/21 14:25 Drugs of Abuse Note Disclamer 01/18/21 14:25 Coronavirus (PCR) Negative (Negative) 01/15/21 08:00 Hepatitis A IgM Ab Non-reactive (NonReactive) 01/15/21 09:15 Hep Bs Antigen Non-reactive (Negative) 01/15/21 09:15 Hep B Core IgM Ab Non-reactive (NonReactive) 01/15/21 09:15 Hepatitis C Antibody Non-reactive (NonReactive) 01/15/21 09:15 Brewer/IV: Voiding Method Incontinent Active Medications - Current Medications Current Medications: Generic Name Dose Route Start Last Admin Trade Name Freq PRN Reason Stop Dose Admin Acetaminophen 650 mg 01/12/21 19:30 Acetaminophen 325 Mg Tab PO Q4H PRN Pain MILD(1-3)/Fever >100.5/ABEL Albuterol 2.5 mg 01/12/21 19:30 Albuterol 2.5 Mg/3 Ml Nebu IH Q4HRT PRN Shortness Of Breath Lipase/Protease/Amylase 1 each 01/13/21 10:11 Lipase 10,500/Protease 25,000/Amylase 43,750 (Units) Dr Silveira FEEDTUBE PRN PRN For Clogged Feeding Tube Atorvastatin Calcium 40 mg 01/12/21 22:00 01/21/21 21:31 Atorvastatin 40 Mg Tab PO 40 mg QHS NOLAN Administration Calcitriol 1 mcg 01/13/21 10:00 01/22/21 11:43 Calcitriol 0.5 Mcg Cap PO 1 mcg QDAY NOLAN Administration Docusate Sodium 100 mg 01/17/21 09:00 Docusate Sodium 100 Mg/10 Ml Oral Liqd PO BID PRN Constipation Doxazosin Mesylate 2 mg 01/18/21 10:00 01/22/21 11:44 Doxazosin 1 Mg Tab PO Not Given QDAY NOLAN Hydrophilic Ointment 1 applic 01/15/21 17:14 Lip Therapy Vaseline TP Q2HR PRN Dry Lips Sodium Chloride 100 mls @ 999 mls/hr 01/15/21 08:00 Nacl 0.9% IV DIONNA PRN Hypotension Levetiracetam 250 mg/ Dextrose 52.5 mls @ 200 mls/hr 01/20/21 13:00 01/22/21 11:32 IV 01/22/21 23:59 200 mls/hr DAILY NOLAN Administration Insulin Human Lispro 0 unit 01/16/21 00:00 01/22/21 11:45 Insulin Lispro 100 Unit/Ml SUB-Q 1 unit Q6HR NOLAN Administration Protocol Lansoprazole 30 mg 01/12/21 22:00 01/22/21 11:44 Lansoprazole 30 Mg Solutab FEEDTUBE 30 mg BID NOLAN Administration Levetiracetam 250 mg 01/23/21 22:00 Levetiracetam 500 Mg/5 Ml Oral Liqd PO QHS NOLAN Linagliptin 5 mg 01/13/21 11:00 01/22/21 08:01 Linagliptin 5 Mg Tab PO 5 mg QDDIAB NOLAN Administration Multi-Ingred Cream/Lotion/Oil/Oint 1 applic 01/15/21 17:14 Mineral Oil/Petrolatum, White Ophth Oint 3.5 Gm OU Q4HR PRN Dry Eye(s) Ondansetron HCl 4 mg 01/12/21 19:30 Ondansetron 4 Mg/2 Ml Inj IV Q8H PRN Nausea And Vomiting Simple Syrup 15 ml 01/13/21 10:11 01/18/21 06:54 Simple Syrup 15 Ml FEEDTUBE 15 ml PRN PRN Administration Hypoglycemia Simple Syrup 30 ml 01/13/21 10:11 Simple Syrup 15 Ml FEEDTUBE PRN PRN Hypoglycemia Sodium Bicarbonate 325 mg 01/13/21 10:11 Sodium Bicarbonate 325 Mg Tab FEEDTUBE PRN PRN For Clogged Feeding Tube Sodium Chloride 10 ml 01/12/21 22:00 01/22/21 11:32 Sodium Chloride 0.9% 10 Ml Flush Syringe IV 10 ml BID NOLAN Administration Timolol Maleate 1 drops 01/17/21 10:00 01/22/21 11:33 Timolol 0.5% Ophth Soln 5 Ml OU 1 drops QDAY NOLAN Administration Nutrition/Malnutrition Assess - Dietary Evaluation Nutrition/Malnutrition Findings: Nutrition Notes Start: 01/13/21 10:03 Freq: Status: Active Protocol: Document 01/21/21 12:27 [facility] (Rec: 01/21/21 12:42 [facility] [id number]) Nutrition Notes Initial or Follow up Reassessment Current Diagnosis CKD (stage V CKD),Diabetes, Hypertension Other Pertinent Diagnosis Chronic seizure d/o Current Diet TF- Nepro at 38ml/hr Labs/Tests Na 133 BUN 56 Cr 3.2 BG 159 Phos 2.3 Pertinent Medications Reviewed Height 5 ft 9 in Weight 56.1 kg [place] Body Weight (kg) 72.72 BMI 18.2 Weight Status Underweight Subjective/Other Information Spoke with MD and RN via phone this am; nephrology wants TF formula change sec to persistent hypophosphatemia ( despite replacement). Burn Absent Trauma Absent #2 Nutrition Diagnosis Increased nutrient needs ( specify in comment below) Diagnosis Progress(for reassessment Continues documentation) #1 Nutrition Diagnosis Inadequate oral intake Diagnosis Progress(for reassessment Continues documentation) Is patient on ventilator? Yes Is Patient Ambulatory and/or Out of Bed No REE-([facility]-confined to bed) 1508.844 Kcal/Kg value to use for calculation 35 Approximate Energy Requirements Using 1964 kcal/Kg Calculation Used for Recommendations Kcal/kg Additional Notes Pro needs >1.2g/kg: >67g/day Fluid needs 1-1.5L/day Nutrition Intervention Nutrition Support: Osmolite 1.5 at 50ml/hr with 150ml water flush q4h. Provides 2200mg K, 1200mg Phos , 1680mg Na. Kcal 1,800 Protein (gm) 75 Carbohydrates (gm) 244 Fat (gm) 59 Fluid (mL) 914 Fiber (gm) 0 Goal #1 TF tolerance Goal #2 TF to meet 80-100% energy and pro needs Goal #3 Wt maintenance and/or gain Follow-Up By: 01/23/21 Additional Comments F/U: TF formula change/ tolerance, labs (BG, K, Na, Phos), vent status
[2021-01-23] MEDS: INSULIN LISPRO 100 UNIT/ML SUB-Q SCH ×4 (00:23→18:25)
[2021-01-23 06:11] LABS: Hematocrit 28.1 % (35.5-45.6); Mean Corpuscular HGB Conc 32 % (32-34); Mean Corpuscular Volume 82 fl (84-94); Platelet Count 146 K/mm3 (140-440); Red Blood Count 3.43 M/mm3 (3.65-5.03); Red Cell Distribution Width 21.6 % (13.2-15.2)
[2021-01-23 06:16] LABS: Calcium 8.6 mg/dL (8.4-10.2)
[2021-01-23] MEDS: LANSOPRAZOLE 30 MG SOLUTAB FEEDTUBE SCH ×2 (09:38→21:35)
[2021-01-23] MEDS: DOXAZOSIN 1 MG TAB PO SCH (09:38)
[2021-01-23] MEDS: CALCITRIOL 0.5 MCG CAP PO SCH (09:38)
[2021-01-23] MEDS: TIMOLOL 0.5% OPHTH SOLN 5 ML OU SCH (09:39)
[2021-01-23] MEDS: LINAGLIPTIN 5 MG TAB PO SCH (09:42)
--- NOTE | 2021-01-23 11:32 | Progress Note ---
Assessment and Plan 1.ESRD: Patient is on maintenance hemodialysis three times a week, TTS schedule. Last outpatient HD 01/12/2021. Meds dosage based on GFR. Hemodialysis: 01/15, 01/16, 01/17(UF), 01/18, 01/22. 2. FEN: Volume overload, UF with HD. Hyponatremia, improved, monitor. Monitor lytes and volume status. 3. Acute resp failure: Currently intubated, on vent. Extubated 01/17. Re-intubated 01/17. Wean as tolerated. 4. Shock: Off pressors. Monitor. 5. New onset of possible witnessed seizure during dialysis: CT brain remarkable for white matter changes. MRI brain: small SDH, chronic changes. On Keppra. Seizure precaution. Followed by Neuro. 6. Advanced dementia: CT white matter changes. 7. Failure to thrive: PEG tube. 8. Anemia, POA: Epogen with HD. 9. DM type 2. 10. Acute metabolic encephalopathy: Followed by Neuro. Subjective: Patient was seen and examined at the bedside. Examination: General appearance: well-developed, appears stated age, no distress, intubated, on vent, FiO2 35% HEENT: ATNC, pupils equal Neck: Trachea midline Respiratory: ctab Cardiology: regular, S1S2, no murmur Abdomen: soft, not tender, BS heard, Peg tube noted Integumentary: warm, dry, no obvious rash Neurologic: not responding Ext: trace dependent edema noted Hemodialysis catheter: R IJ tunnel catheter Subjective Date of service: 01/23/21 Principal diagnosis: witnessed seizure hx of ESRD ,hyponatremia Objective - Vital Signs Vital signs: Vital Signs - 12hr 01/22/21 01/22/21 01/22/21 23:31 23:41 23:51 Temperature Pulse Rate 114 H 112 H 110 H Pulse Rate [ From Monitor] Respiratory 24 25 H 18 Rate Blood Pressure 99/45 101/51 101/51 O2 Sat by Pulse 100 100 100 Oximetry 01/23/21 01/23/21 01/23/21 00:00 00:01 00:05 Temperature 98.6 F Pulse Rate 110 H 111 H 112 H Pulse Rate [ 112 H From Monitor] Respiratory 24 24 Rate Blood Pressure 114/30 114/30 O2 Sat by Pulse 97 98 99 Oximetry 01/23/21 01/23/21 01/23/21 00:11 00:21 00:31 Temperature Pulse Rate 110 H 108 H 109 H Pulse Rate [ From Monitor] Respiratory 27 H 35 H 33 H Rate Blood Pressure 114/30 114/30 114/30 O2 Sat by Pulse 99 98 99 Oximetry 01/23/21 01/23/21 01/23/21 00:41 00:51 01:01 Temperature Pulse Rate 109 H 115 H 109 H Pulse Rate [ From Monitor] Respiratory 29 H 26 H 23 Rate Blood Pressure 114/30 114/30 105/38 O2 Sat by Pulse 99 100 99 Oximetry 01/23/21 01/23/21 01/23/21 01:11 01:21 01:31 Temperature Pulse Rate 107 H 109 H 114 H Pulse Rate [ From Monitor] Respiratory 25 H 26 H 18 Rate Blood Pressure 105/38 105/38 105/38 O2 Sat by Pulse 100 100 100 Oximetry 01/23/21 01/23/21 01/23/21 01:41 01:51 02:00 Temperature Pulse Rate 108 H 104 H 107 H Pulse Rate [ From Monitor] Respiratory 26 H 27 H 22 Rate Blood Pressure 105/38 105/38 105/38 O2 Sat by Pulse 100 100 100 Oximetry 01/23/21 01/23/21 01/23/21 02:11 02:21 02:31 Temperature Pulse Rate 106 H 109 H 110 H Pulse Rate [ From Monitor] Respiratory 27 H 28 H 15 Rate Blood Pressure 105/38 105/38 105/38 O2 Sat by Pulse 100 100 100 Oximetry 01/23/21 01/23/21 01/23/21 02:41 02:51 03:00 Temperature Pulse Rate 95 H 96 H 99 H Pulse Rate [ From Monitor] Respiratory 16 25 H 19 Rate Blood Pressure 111/66 111/66 116/56 O2 Sat by Pulse 100 100 99 Oximetry 01/23/21 01/23/21 01/23/21 03:11 03:21 03:31 Temperature Pulse Rate 101 H 105 H 101 H Pulse Rate [ From Monitor] Respiratory 25 H 17 25 H Rate Blood Pressure 116/56 116/56 116/56 O2 Sat by Pulse 100 100 100 Oximetry 01/23/21 01/23/21 01/23/21 03:41 03:51 03:52 Temperature Pulse Rate 82 95 H 93 H Pulse Rate [ From Monitor] Respiratory 18 19 Rate Blood Pressure 116/56 116/56 116/56 O2 Sat by Pulse 100 100 100 Oximetry 01/23/21 01/23/21 01/23/21 04:00 04:01 04:11 Temperature 98.2 F Pulse Rate 72 100 H Pulse Rate [ 112 H From Monitor] Respiratory 24 23 19 Rate Blood Pressure 114/52 114/52 O2 Sat by Pulse 97 100 100 Oximetry 01/23/21 01/23/21 01/23/21 04:21 04:31 04:41 Temperature Pulse Rate 90 83 104 H Pulse Rate [ From Monitor] Respiratory 19 13 19 Rate Blood Pressure 114/52 114/52 114/52 O2 Sat by Pulse 100 100 100 Oximetry 01/23/21 01/23/21 01/23/21 04:51 05:01 05:11 Temperature Pulse Rate 98 H 90 94 H Pulse Rate [ From Monitor] Respiratory 14 22 20 Rate Blood Pressure 114/52 117/51 117/51 O2 Sat by Pulse 100 99 100 Oximetry 01/23/21 01/23/21 01/23/21 05:21 05:31 05:41 Temperature Pulse Rate 100 H 80 80 Pulse Rate [ From Monitor] Respiratory 19 18 21 Rate Blood Pressure 117/51 117/51 117/51 O2 Sat by Pulse 100 100 100 Oximetry 01/23/21 01/23/21 01/23/21 05:50 06:00 06:11 Temperature Pulse Rate 98 H 86 83 Pulse Rate [ From Monitor] Respiratory 18 15 21 Rate Blood Pressure 111/66 100/53 100/53 O2 Sat by Pulse 100 100 100 Oximetry 01/23/21 01/23/21 01/23/21 06:21 06:31 06:41 Temperature Pulse Rate 96 H 97 H 94 H Pulse Rate [ From Monitor] Respiratory 20 21 27 H Rate Blood Pressure 117/51 117/51 117/51 O2 Sat by Pulse 100 100 100 Oximetry 01/23/21 01/23/21 01/23/21 06:51 06:56 07:00 Temperature Pulse Rate 91 H 89 90 Pulse Rate [ From Monitor] Respiratory 16 21 Rate Blood Pressure 117/51 100/53 114/54 O2 Sat by Pulse 98 98 98 Oximetry 01/23/21 01/23/21 01/23/21 07:14 09:38 10:57 Temperature 98.6 F Pulse Rate 83 90 Pulse Rate [ From Monitor] Respiratory Rate Blood Pressure 106/52 114/57 O2 Sat by Pulse 100 Oximetry - Lab 07/21/21 04:41 01/23/21 04:41 Most recent lab results ABG pH 7.410 pH Units (7.350-7.450) 01/22/21 04:00 ABG pCO2 39.5 mm Hg 01/22/21 04:00 ABG pO2 118.8 mm Hg (80.0-90.0) H 01/22/21 04:00 ABG HCO3 24.5 mmol/L (20.0-26.0) 01/22/21 04:00 ABG O2 Saturation 98.3 % (95.0-99.0) 01/22/21 04:00 Calcium 8.6 mg/dL (8.4-10.2) 01/23/21 04:41 Phosphorus 3.70 mg/dL (2.5-4.5) D 01/22/21 04:20 Magnesium 2.00 mg/dL (1.7-2.3) 01/22/21 04:20 Medications & Allergies - Medications Allergies/Adverse Reactions: Allergies No Known Allergies Allergy (Verified 08/14/19 16:11) Home Medications: Home Medications Medication Instructions Recorded Confirmed Last Taken Type Alogliptin Benzoate [Alogliptin] 1 tab PO DAILY 10/02/20 10/25/20 Unknown History Sevelamer Carbonate [Renvela] mg PO TIDWM 10/02/20 10/25/20 Unknown History buprenorphine hcl [Subutex] 2 mg SL QDAY PRN 10/02/20 10/25/20 Unknown History AtorvaSTATin [Lipitor] 40 mg PO QHS #30 10/11/20 01/23/21 Unknown Rx Docusate Sodium [Colace CAP] 100 mg PO BID PRN #60 cap 10/11/20 10/25/20 Unknown Rx Doxazosin [Cardura] 4 mg PO QDAY #30 10/11/20 01/23/21 Unknown Rx Febuxostat 40 mg PO QDAY #30 10/11/20 01/23/21 Unknown Rx Ketotifen Fumarate 1 drop OU QDAY #1 bottle 10/11/20 01/23/21 Unknown Rx Lansoprazole Solutab [Prevacid 30 mg FEEDTUBE BID #60 tab.rapdis 10/11/20 01/23/21 Unknown Rx Solutab] Megestrol Acetate 40 mg PO QDAY #30 10/11/20 01/23/21 Unknown Rx Metoprolol [Lopressor TAB] 12.5 mg PO BID #60 tablet 10/11/20 01/23/21 Unknown Rx calcitrioL [Rocaltrol] 1 mcg PO QDAY #30 cap 10/11/20 01/23/21 Unknown Rx timoloL maleate [Timolol Maleate 1 drop OP BID #1 bottle 10/11/20 01/23/21 Unknown Rx 0.25%] Insulin Lispro [Humalog] 0 units SUB-Q QID 01/23/21 01/23/21 Unknown History Active Medications: Generic Name Dose Route Start Last Admin Trade Name Freq PRN Reason Stop Dose Admin Acetaminophen 650 mg 01/12/21 19:30 Acetaminophen 325 Mg Tab PO Q4H PRN Pain MILD(1-3)/Fever >100.5/ABEL Albuterol 2.5 mg 01/12/21 19:30 Albuterol 2.5 Mg/3 Ml Nebu IH Q4HRT PRN Shortness Of Breath Lipase/Protease/Amylase 1 each 01/13/21 10:11 Lipase 10,500/Protease 25,000/Amylase 43,750 (Units) Dr Silveira FEEDTUBE PRN PRN For Clogged Feeding Tube Atorvastatin Calcium 40 mg 01/12/21 22:00 01/22/21 21:40 Atorvastatin 40 Mg Tab PO 40 mg QHS NOLAN Administration Calcitriol 1 mcg 01/13/21 10:00 01/23/21 09:38 Calcitriol 0.5 Mcg Cap PO 1 mcg QDAY NOLAN Administration Docusate Sodium 100 mg 01/17/21 09:00 Docusate Sodium 100 Mg/10 Ml Oral Liqd PO BID PRN Constipation Doxazosin Mesylate 2 mg 01/18/21 10:00 01/23/21 09:38 Doxazosin 1 Mg Tab PO 2 mg QDAY NOLAN Administration Hydrophilic Ointment 1 applic 01/15/21 17:14 Lip Therapy Vaseline TP Q2HR PRN Dry Lips Sodium Chloride 100 mls @ 999 mls/hr 01/15/21 08:00 Nacl 0.9% IV DIONNA PRN Hypotension Insulin Human Lispro 0 unit 01/16/21 00:00 01/23/21 06:11 Insulin Lispro 100 Unit/Ml SUB-Q 3 unit Q6HR NOLAN Administration Protocol Lansoprazole 30 mg 01/12/21 22:00 01/23/21 09:38 Lansoprazole 30 Mg Solutab FEEDTUBE 30 mg BID NOLAN Administration Levetiracetam 250 mg 01/23/21 22:00 Levetiracetam 500 Mg/5 Ml Oral Liqd PO QHS NOLAN Linagliptin 5 mg 01/13/21 11:00 01/23/21 09:42 Linagliptin 5 Mg Tab PO 5 mg QDDIAB NOLAN Administration Multi-Ingred Cream/Lotion/Oil/Oint 1 applic 01/15/21 17:14 Mineral Oil/Petrolatum, White Ophth Oint 3.5 Gm OU Q4HR PRN Dry Eye(s) Ondansetron HCl 4 mg 01/12/21 19:30 Ondansetron 4 Mg/2 Ml Inj IV Q8H PRN Nausea And Vomiting Simple Syrup 15 ml 01/13/21 10:11 01/18/21 06:54 Simple Syrup 15 Ml FEEDTUBE 15 ml PRN PRN Administration Hypoglycemia Simple Syrup 30 ml 01/13/21 10:11 Simple Syrup 15 Ml FEEDTUBE PRN PRN Hypoglycemia Sodium Bicarbonate 325 mg 01/13/21 10:11 Sodium Bicarbonate 325 Mg Tab FEEDTUBE PRN PRN For Clogged Feeding Tube Sodium Chloride 10 ml 01/12/21 22:00 01/23/21 09:42 Sodium Chloride 0.9% 10 Ml Flush Syringe IV 10 ml BID NOLAN Administration Timolol Maleate 1 drops 01/17/21 10:00 01/23/21 09:39 Timolol 0.5% Ophth Soln 5 Ml OU 1 drops QDAY NOLAN Administration
--- NOTE | 2021-01-23 15:02 | Progress Note ---
Assessment and Plan 80 y/o with chronic seizure disorder, ESRD, HTN admitted with status epilepticus, requiring intubation for burst suppression. 01/23/21: Long discussion with family over the phone at bedside. They had several questions about trach and weaning. Answered all questions as best as possible. Family going to discuss again today and will let us known tomorrow. Continue supportive measures. Guarded to poor prognosis. 01/22/21: Will discuss on rounds today the possibility of cutting back more on anti-epileptic meds to see if this helps with his mental state. Will reach out to family today to discuss next options and goals of care. He is currently not a candidate for extubation and may need trach and peg. Will call with CM. Continue daily PSV trials. 01/21/21: FiO2 now down to 30%. RT to attempt PSV today to see how patient to lerates. Not a candidate for extubation given his current mental state. Neuro did decrease meds more on yesterday Keppra daily and BID Valproic Acid. Will call family to update on current level of care. Overall prognosis remains guarded to poor. Will get Head CT today to rule out any new areas of ischemia or bleeding. 01/20/21: FiO2 stable on 45%. Hold on repeat Imaging for now. Will hold on Flumazenil therapy given his prior history of seizure. May need more HD tomorrow. Spoke with Daughter and over the phone to update and they asked me to call them again tomorrow. Will tell them that visiting hours are present if they choose to come. Guarded prognosis. 01/19/21: Dropped FiO2 to 45%. Await neurology eval today but need to consider repeat imaging of head as I have not explanation as to why patient is not responsive. Patient does not make any urine so not able to send UDS. Had HD on yesterday so next one would likely be Thursday. Renal to address electrolytes. Very very guarded prognosis. 01/18/21: EEG not officially read, but prelim is negative for seizures, just diffuse slowing. ABG is stable, not hypercapnic. Will send UDS to see if benzos are still in system. spoke with renal who will do HD today and manage electrolytes. DId order mag level given low levels of potassium. Overall prognosis is very guarded to poor. If not more responsive tomorrow, may need to consider repeat imaging of head/brain. 01/17/21: Extubate. HD today per renal. If tolerates both, transfer back to floor on new anti-epileptic regimen 1. Continue Versed at 3mg IV per Hour for the next 24 hours. 2. Repeat EEG tomorrow off Versed. 3. Will attempt to get this before HD tomorrow. 4. HD per renal, tomorrow as patient got HD yesterday CCT 31 minutes. Subjective Date of service: 01/23/21 Principal diagnosis: witnessed seizure hx of ESRD ,hyponatremia Interval history: No acute events. Mental status is still unchanged. at bedside today. CM and myself Called daughter and her and put them on speaker with at the bedside. Answered all questions to the best of my abilities. Objective Vital Signs - 12hr 01/23/21 01/23/21 01/23/21 02:51 03:00 03:11 Temperature Pulse Rate 96 H 99 H 101 H Pulse Rate [ From Monitor] Respiratory 25 H 19 25 H Rate Blood Pressure 111/66 116/56 116/56 O2 Sat by Pulse 100 99 100 Oximetry 01/23/21 01/23/21 01/23/21 03:21 03:31 03:41 Temperature Pulse Rate 105 H 101 H 82 Pulse Rate [ From Monitor] Respiratory 17 25 H 18 Rate Blood Pressure 116/56 116/56 116/56 O2 Sat by Pulse 100 100 100 Oximetry 01/23/21 01/23/21 01/23/21 03:51 03:52 04:00 Temperature 98.2 F Pulse Rate 95 H 93 H Pulse Rate [ 112 H From Monitor] Respiratory 19 24 Rate Blood Pressure 116/56 116/56 O2 Sat by Pulse 100 100 97 Oximetry 01/23/21 01/23/21 01/23/21 04:01 04:11 04:21 Temperature Pulse Rate 72 100 H 90 Pulse Rate [ From Monitor] Respiratory 23 19 19 Rate Blood Pressure 114/52 114/52 114/52 O2 Sat by Pulse 100 100 100 Oximetry 01/23/21 01/23/21 01/23/21 04:31 04:41 04:51 Temperature Pulse Rate 83 104 H 98 H Pulse Rate [ From Monitor] Respiratory 13 19 14 Rate Blood Pressure 114/52 114/52 114/52 O2 Sat by Pulse 100 100 100 Oximetry 01/23/21 01/23/21 01/23/21 05:01 05:11 05:21 Temperature Pulse Rate 90 94 H 100 H Pulse Rate [ From Monitor] Respiratory 22 20 19 Rate Blood Pressure 117/51 117/51 117/51 O2 Sat by Pulse 99 100 100 Oximetry 01/23/21 01/23/21 01/23/21 05:31 05:41 05:50 Temperature Pulse Rate 80 80 98 H Pulse Rate [ From Monitor] Respiratory 18 21 18 Rate Blood Pressure 117/51 117/51 111/66 O2 Sat by Pulse 100 100 100 Oximetry 01/23/21 01/23/21 01/23/21 06:00 06:11 06:21 Temperature Pulse Rate 86 83 96 H Pulse Rate [ From Monitor] Respiratory 15 21 20 Rate Blood Pressure 100/53 100/53 117/51 O2 Sat by Pulse 100 100 100 Oximetry 01/23/21 01/23/21 01/23/21 06:31 06:41 06:51 Temperature Pulse Rate 97 H 94 H 91 H Pulse Rate [ From Monitor] Respiratory 21 27 H 16 Rate Blood Pressure 117/51 117/51 117/51 O2 Sat by Pulse 100 100 98 Oximetry 01/23/21 01/23/21 01/23/21 06:56 07:00 07:11 Temperature Pulse Rate 89 90 85 Pulse Rate [ From Monitor] Respiratory 21 21 Rate Blood Pressure 100/53 114/54 114/54 O2 Sat by Pulse 98 98 99 Oximetry 01/23/21 01/23/21 01/23/21 07:14 07:21 07:31 Temperature 98.6 F Pulse Rate 88 87 Pulse Rate [ From Monitor] Respiratory 19 17 Rate Blood Pressure 114/54 114/54 O2 Sat by Pulse 100 100 Oximetry 01/23/21 01/23/21 01/23/21 07:41 07:51 08:00 Temperature Pulse Rate 84 92 H 90 Pulse Rate [ From Monitor] Respiratory 26 H 20 15 Rate Blood Pressure 114/54 114/54 110/54 O2 Sat by Pulse 100 100 99 Oximetry 01/23/21 01/23/21 01/23/21 08:11 08:21 08:31 Temperature Pulse Rate 87 88 87 Pulse Rate [ From Monitor] Respiratory 16 14 17 Rate Blood Pressure 110/54 110/54 110/54 O2 Sat by Pulse 100 100 100 Oximetry 01/23/21 01/23/21 01/23/21 08:41 08:51 09:00 Temperature Pulse Rate 81 85 88 Pulse Rate [ From Monitor] Respiratory 19 16 20 Rate Blood Pressure 110/54 110/54 106/52 O2 Sat by Pulse 99 98 98 Oximetry 01/23/21 01/23/21 01/23/21 09:11 09:21 09:31 Temperature Pulse Rate 95 H 93 H 102 H Pulse Rate [ From Monitor] Respiratory 22 23 21 Rate Blood Pressure 106/52 110/54 110/54 O2 Sat by Pulse 99 100 99 Oximetry 01/23/21 01/23/21 01/23/21 09:38 09:41 09:51 Temperature Pulse Rate 83 88 94 H Pulse Rate [ From Monitor] Respiratory 27 H 17 Rate Blood Pressure 106/52 110/54 110/54 O2 Sat by Pulse 98 100 Oximetry 01/23/21 01/23/21 01/23/21 10:00 10:11 10:21 Temperature Pulse Rate 98 H 96 H 84 Pulse Rate [ From Monitor] Respiratory 21 19 15 Rate Blood Pressure 114/57 114/57 114/57 O2 Sat by Pulse 99 100 100 Oximetry 01/23/21 01/23/21 01/23/21 10:31 10:41 10:51 Temperature Pulse Rate 96 H 95 H 89 Pulse Rate [ From Monitor] Respiratory 16 17 17 Rate Blood Pressure 114/57 114/57 114/57 O2 Sat by Pulse 100 100 100 Oximetry 01/23/21 01/23/21 01/23/21 10:57 11:00 11:11 Temperature Pulse Rate 90 90 91 H Pulse Rate [ From Monitor] Respiratory 19 16 Rate Blood Pressure 114/57 108/51 108/51 O2 Sat by Pulse 100 99 98 Oximetry 01/23/21 01/23/21 01/23/21 11:21 11:31 11:41 Temperature Pulse Rate 85 87 87 Pulse Rate [ From Monitor] Respiratory 22 19 19 Rate Blood Pressure 108/51 108/51 108/51 O2 Sat by Pulse 97 98 98 Oximetry 01/23/21 01/23/21 01/23/21 11:51 12:00 12:11 Temperature 99.4 F Pulse Rate 82 87 97 H Pulse Rate [ From Monitor] Respiratory 20 19 24 Rate Blood Pressure 108/51 110/54 110/54 O2 Sat by Pulse 99 98 99 Oximetry 01/23/21 01/23/21 01/23/21 12:21 12:31 12:41 Temperature Pulse Rate 87 92 H 85 Pulse Rate [ From Monitor] Respiratory 27 H 22 22 Rate Blood Pressure 110/54 110/54 110/54 O2 Sat by Pulse 99 99 99 Oximetry 01/23/21 01/23/21 01/23/21 12:51 13:00 13:11 Temperature Pulse Rate 90 72 78 Pulse Rate [ From Monitor] Respiratory 22 27 H 13 Rate Blood Pressure 110/54 99/54 99/54 O2 Sat by Pulse 99 100 100 Oximetry 01/23/21 13:21 Temperature Pulse Rate 80 Pulse Rate [ From Monitor] Respiratory 22 Rate Blood Pressure 99/54 O2 Sat by Pulse 99 Oximetry Constitutional: no acute distress, comatose (secondary to meds for seizure) ENT: other (orally intubated and sedated) Neck: supple Effort: normal Ascultation: Bilateral: clear Cardiovascular: regular rate and rhythm Gastrointestinal: normoactive bowel sounds Integumentary: normal Extremities: no edema, pulses normal CBC and BMP: 01/23/21 04:41 01/23/21 04:41 ABG, PT/INR, D-dimer: ABG ABG pH 7.410 pH Units (7.350-7.450) 01/22/21 04:00 POC ABG pCO2 33.2 mmHg (32.0-48.0) 01/20/21 04:00 ABG pCO2 39.5 mm Hg 01/22/21 04:00 POC ABG pO2 97.9 mmHg (83-108) 01/20/21 04:00 ABG pO2 118.8 mm Hg (80.0-90.0) H 01/22/21 04:00 POC ABG HCO3 26.1 01/20/21 04:00 ABG O2 Saturation 98.3 % (95.0-99.0) 01/22/21 04:00 PT/INR, D-dimer PT 15.2 Sec. (12.2-14.9) H 01/22/21 04:20 INR 1.15 (0.87-1.13) H 01/22/21 04:20 Abnormal lab findings: Abnormal Labs 01/12/21 01/12/21 01/12/21 14:12 14:36 14:36 WBC 11.2 H RBC Hgb Hct MCV MCH 27 L RDW 21.0 H Plt Count Lymph % (Auto) Lymph # (Auto) Seg Neutrophils % 79.6 H Seg Neutrophils # 8.9 H PT INR ABG pH POC ABG pCO2 POC ABG pO2 ABG pO2 ABG Hemoglobin ABG Oxyhemoglobin ABG Sodium ABG Potassium ABG Glucose Sodium 136 L Potassium Chloride 95.8 L Carbon Dioxide 19 L BUN Creatinine 2.0 H Glucose 163 H POC Glucose 166 H Calcium 8.2 L Phosphorus Ammonia Total Protein 5.4 L Albumin 3.4 L TSH Arterial Blood Glucose Arterial Blood Ionized Calcium Phenytoin Valproic Acid 01/13/21 01/13/21 01/13/21 05:19 12:14 16:16 WBC RBC Hgb Hct MCV MCH RDW Plt Count Lymph % (Auto) Lymph # (Auto) Seg Neutrophils % Seg Neutrophils # PT INR ABG pH POC ABG pCO2 POC ABG pO2 ABG pO2 ABG Hemoglobin ABG Oxyhemoglobin ABG Sodium ABG Potassium ABG Glucose Sodium 134 L Potassium Chloride 95.5 L Carbon Dioxide BUN 23 H Creatinine 2.6 H Glucose 168 H POC Glucose 142 H 163 H Calcium Phosphorus Ammonia Total Protein 5.8 L Albumin 3.3 L TSH Arterial Blood Glucose Arterial Blood Ionized Calcium Phenytoin Valproic Acid 01/13/21 01/13/21 01/14/21 20:22 23:57 06:31 WBC RBC Hgb Hct MCV MCH RDW Plt Count Lymph % (Auto) Lymph # (Auto) Seg Neutrophils % Seg Neutrophils # PT INR ABG pH POC ABG pCO2 POC ABG pO2 ABG pO2 ABG Hemoglobin ABG Oxyhemoglobin ABG Sodium ABG Potassium ABG Glucose Sodium Potassium Chloride Carbon Dioxide BUN Creatinine Glucose POC Glucose 209 H 189 H 236 H Calcium Phosphorus Ammonia Total Protein Albumin TSH Arterial Blood Glucose Arterial Blood Ionized Calcium Phenytoin Valproic Acid 01/14/21 01/14/21 01/14/21 08:57 08:57 12:22 WBC 12.0 H RBC Hgb 11.3 L Hct 34.5 L MCV MCH RDW 20.6 H Plt Count Lymph % (Auto) 6.4 L Lymph # (Auto) 0.8 L Seg Neutrophils % 87.4 H Seg Neutrophils # 10.5 H PT INR ABG pH POC ABG pCO2 POC ABG pO2 ABG pO2 ABG Hemoglobin ABG Oxyhemoglobin ABG Sodium ABG Potassium ABG Glucose Sodium 131 L Potassium Chloride 93.7 L Carbon Dioxide BUN 37 H Creatinine 3.7 H Glucose 261 H POC Glucose 280 H Calcium Phosphorus Ammonia Total Protein Albumin TSH Arterial Blood Glucose Arterial Blood Ionized Calcium Phenytoin Valproic Acid 01/14/21 01/14/21 01/15/21 16:15 22:28 04:43 WBC RBC Hgb Hct MCV MCH RDW Plt Count Lymph % (Auto) Lymph # (Auto) Seg Neutrophils % Seg Neutrophils # PT INR ABG pH POC ABG pCO2 POC ABG pO2 ABG pO2 ABG Hemoglobin ABG Oxyhemoglobin ABG Sodium ABG Potassium ABG Glucose Sodium Potassium Chloride Carbon Dioxide BUN Creatinine Glucose POC Glucose 289 H 252 H 243 H Calcium Phosphorus Ammonia Total Protein Albumin TSH Arterial Blood Glucose Arterial Blood Ionized Calcium Phenytoin Valproic Acid 01/15/21 01/15/21 01/15/21 05:22 05:22 08:56 WBC 11.1 H RBC Hgb 11.0 L Hct 33.3 L MCV 83 L MCH 27 L RDW 20.6 H Plt Count Lymph % (Auto) 6.3 L Lymph # (Auto) 0.7 L Seg Neutrophils % 88.2 H Seg Neutrophils # 9.8 H PT INR ABG pH POC ABG pCO2 POC ABG pO2 ABG pO2 ABG Hemoglobin ABG Oxyhemoglobin ABG Sodium ABG Potassium ABG Glucose Sodium 130 L Potassium Chloride 92.0 L Carbon Dioxide BUN 49 H Creatinine 4.2 H Glucose 241 H POC Glucose Calcium Phosphorus Ammonia Total Protein Albumin TSH Arterial Blood Glucose Arterial Blood Ionized Calcium Phenytoin Valproic Acid 45.9 L 01/15/21 01/15/21 01/15/21 16:42 18:14 23:10 WBC RBC Hgb Hct MCV MCH RDW Plt Count Lymph % (Auto) Lymph # (Auto) Seg Neutrophils % Seg Neutrophils # PT INR ABG pH 7.463 H POC ABG pCO2 POC ABG pO2 377.4 H ABG pO2 ABG Hemoglobin 11.6 L ABG Oxyhemoglobin 98.6 H ABG Sodium 130.1 L ABG Potassium ABG Glucose 254 H Sodium Potassium Chloride Carbon Dioxide BUN Creatinine Glucose POC Glucose 218 H 279 H Calcium Phosphorus Ammonia Total Protein Albumin TSH Arterial Blood Glucose 254 H Arterial Blood Ionized Calcium 4.5 L Phenytoin Valproic Acid 01/16/21 01/16/21 01/16/21 03:10 05:11 05:17 WBC RBC Hgb 10.4 L Hct 31.8 L MCV MCH 27 L RDW 20.3 H Plt Count 132 L Lymph % (Auto) Lymph # (Auto) Seg Neutrophils % Seg Neutrophils # PT INR ABG pH POC ABG pCO2 POC ABG pO2 174.4 H ABG pO2 ABG Hemoglobin 10.3 L ABG Oxyhemoglobin 98.6 H ABG Sodium 129.9 L ABG Potassium 3.2 L ABG Glucose 202 H Sodium Potassium Chloride Carbon Dioxide BUN Creatinine Glucose POC Glucose 193 H Calcium Phosphorus Ammonia Total Protein Albumin TSH Arterial Blood Glucose 202 H Arterial Blood Ionized Calcium Phenytoin Valproic Acid 01/16/21 01/16/21 01/16/21 05:17 09:15 11:33 WBC RBC Hgb Hct MCV MCH RDW Plt Count Lymph % (Auto) Lymph # (Auto) Seg Neutrophils % Seg Neutrophils # PT INR ABG pH POC ABG pCO2 POC ABG pO2 ABG pO2 ABG Hemoglobin ABG Oxyhemoglobin ABG Sodium ABG Potassium ABG Glucose Sodium Potassium 3.4 L Chloride Carbon Dioxide BUN 36 H Creatinine 3.2 H Glucose 216 H POC Glucose 174 H Calcium 8.3 L Phosphorus 1.10 L Ammonia Total Protein Albumin TSH Arterial Blood Glucose Arterial Blood Ionized Calcium Phenytoin 6.5 L Valproic Acid 01/16/21 01/17/21 01/17/21 18:13 00:10 04:00 WBC RBC Hgb Hct MCV MCH RDW Plt Count Lymph % (Auto) Lymph # (Auto) Seg Neutrophils % Seg Neutrophils # PT INR ABG pH POC ABG pCO2 POC ABG pO2 ABG pO2 ABG Hemoglobin 10.1 L ABG Oxyhemoglobin ABG Sodium 130.1 L ABG Potassium 3.3 L ABG Glucose 153 H Sodium Potassium Chloride Carbon Dioxide BUN Creatinine Glucose POC Glucose 162 H 150 H Calcium Phosphorus Ammonia Total Protein Albumin TSH Arterial Blood Glucose 153 H Arterial Blood Ionized Calcium Phenytoin Valproic Acid 01/17/21 01/17/21 01/17/21 05:30 05:48 11:14 WBC RBC Hgb Hct MCV MCH RDW Plt Count Lymph % (Auto) Lymph # (Auto) Seg Neutrophils % Seg Neutrophils # PT INR ABG pH POC ABG pCO2 POC ABG pO2 ABG pO2 ABG Hemoglobin ABG Oxyhemoglobin ABG Sodium ABG Potassium ABG Glucose Sodium 136 L Potassium 3.5 L Chloride Carbon Dioxide BUN 48 H Creatinine 3.5 H Glucose 165 H POC Glucose 149 H Calcium 8.0 L Phosphorus 0.80 L* D Ammonia 22.0 L Total Protein Albumin TSH Arterial Blood Glucose Arterial Blood Ionized Calcium Phenytoin Valproic Acid 01/17/21 01/17/21 01/17/21 11:43 17:34 18:46 WBC RBC Hgb Hct MCV MCH RDW Plt Count Lymph % (Auto) Lymph # (Auto) Seg Neutrophils % Seg Neutrophils # PT INR ABG pH POC ABG pCO2 POC ABG pO2 ABG pO2 ABG Hemoglobin ABG Oxyhemoglobin ABG Sodium ABG Potassium ABG Glucose Sodium Potassium Chloride Carbon Dioxide BUN Creatinine Glucose POC Glucose 160 H 209 H Calcium Phosphorus 2.20 L D Ammonia Total Protein Albumin TSH Arterial Blood Glucose Arterial Blood Ionized Calcium Phenytoin Valproic Acid 01/17/21 01/17/21 01/18/21 19:00 23:19 03:28 WBC RBC Hgb Hct MCV MCH RDW Plt Count Lymph % (Auto) Lymph # (Auto) Seg Neutrophils % Seg Neutrophils # PT INR ABG pH POC ABG pCO2 POC ABG pO2 190.2 H ABG pO2 ABG Hemoglobin 11.9 L ABG Oxyhemoglobin 98.5 H ABG Sodium 130.9 L 131.0 L ABG Potassium 3.0 L 2.8 L ABG Glucose 241 H Sodium Potassium Chloride Carbon Dioxide BUN Creatinine Glucose POC Glucose 222 H Calcium Phosphorus Ammonia Total Protein Albumin TSH Arterial Blood Glucose 241 H Arterial Blood Ionized Calcium 4.5 L Phenytoin Valproic Acid 01/18/21 01/18/21 01/18/21 04:16 06:20 10:20 WBC 14.1 H RBC Hgb 11.2 L Hct 34.5 L MCV 83 L MCH 27 L RDW 20.8 H Plt Count 116 L Lymph % (Auto) Lymph # (Auto) Seg Neutrophils % Seg Neutrophils # PT INR ABG pH POC ABG pCO2 POC ABG pO2 ABG pO2 ABG Hemoglobin ABG Oxyhemoglobin ABG Sodium ABG Potassium ABG Glucose Sodium 134 L Potassium 2.9 L* Chloride Carbon Dioxide 21 L BUN 60 H Creatinine 3.9 H Glucose POC Glucose 69 L Calcium Phosphorus 1.60 L D Ammonia Total Protein Albumin TSH Arterial Blood Glucose Arterial Blood Ionized Calcium Phenytoin Valproic Acid 01/18/21 01/18/21 01/18/21 11:29 15:30 17:23 WBC RBC Hgb Hct MCV MCH RDW Plt Count Lymph % (Auto) Lymph # (Auto) Seg Neutrophils % Seg Neutrophils # PT INR ABG pH POC ABG pCO2 POC ABG pO2 ABG pO2 ABG Hemoglobin ABG Oxyhemoglobin ABG Sodium ABG Potassium ABG Glucose Sodium Potassium 3.3 L Chloride Carbon Dioxide BUN 42 H Creatinine 3.1 H Glucose 190 H POC Glucose 128 H 167 H Calcium 8.2 L Phosphorus 1.10 L D Ammonia Total Protein Albumin TSH Arterial Blood Glucose Arterial Blood Ionized Calcium Phenytoin Valproic Acid 01/18/21 01/19/21 01/19/21 23:43 03:43 04:38 WBC RBC Hgb Hct MCV MCH RDW Plt Count Lymph % (Auto) Lymph # (Auto) Seg Neutrophils % Seg Neutrophils # PT INR ABG pH 7.536 H POC ABG pCO2 27.0 L POC ABG pO2 165.8 H ABG pO2 ABG Hemoglobin 10.7 L ABG Oxyhemoglobin 98.4 H ABG Sodium 131.3 L ABG Potassium ABG Glucose 152 H Sodium Potassium Chloride Carbon Dioxide BUN 55 H Creatinine 3.8 H Glucose 143 H POC Glucose 232 H Calcium Phosphorus 1.10 L Ammonia Total Protein Albumin TSH Arterial Blood Glucose 152 H Arterial Blood Ionized Calcium Phenytoin Valproic Acid 01/19/21 01/19/21 01/19/21 05:12 11:36 15:16 WBC RBC Hgb Hct MCV MCH RDW Plt Count Lymph % (Auto) Lymph # (Auto) Seg Neutrophils % Seg Neutrophils # PT INR ABG pH POC ABG pCO2 POC ABG pO2 ABG pO2 ABG Hemoglobin ABG Oxyhemoglobin ABG Sodium ABG Potassium ABG Glucose Sodium Potassium Chloride Carbon Dioxide BUN Creatinine Glucose POC Glucose 135 H 201 H Calcium Phosphorus 1.10 L Ammonia Total Protein Albumin TSH Arterial Blood Glucose Arterial Blood Ionized Calcium Phenytoin Valproic Acid 01/19/21 01/19/21 01/20/21 17:55 23:22 04:00 WBC RBC Hgb Hct MCV MCH RDW Plt Count Lymph % (Auto) Lymph # (Auto) Seg Neutrophils % Seg Neutrophils # PT INR ABG pH 7.513 H POC ABG pCO2 POC ABG pO2 ABG pO2 ABG Hemoglobin 9.9 L ABG Oxyhemoglobin ABG Sodium 129.4 L ABG Potassium ABG Glucose 196 H Sodium Potassium Chloride Carbon Dioxide BUN Creatinine Glucose POC Glucose 222 H 252 H Calcium Phosphorus Ammonia Total Protein Albumin TSH Arterial Blood Glucose 196 H Arterial Blood Ionized Calcium Phenytoin Valproic Acid 01/20/21 01/20/21 01/20/21 05:15 11:15 14:49 WBC 16.1 H RBC Hgb 9.9 L Hct 30.3 L MCV 82 L MCH 27 L RDW 20.7 H Plt Count 114 L Lymph % (Auto) Lymph # (Auto) Seg Neutrophils % Seg Neutrophils # PT INR ABG pH POC ABG pCO2 POC ABG pO2 ABG pO2 ABG Hemoglobin ABG Oxyhemoglobin ABG Sodium ABG Potassium ABG Glucose Sodium Potassium Chloride Carbon Dioxide BUN Creatinine Glucose POC Glucose 163 H 149 H Calcium Phosphorus Ammonia Total Protein Albumin TSH Arterial Blood Glucose Arterial Blood Ionized Calcium Phenytoin Valproic Acid 01/20/21 01/20/21 01/20/21 14:49 14:49 17:12 WBC RBC Hgb Hct MCV MCH RDW Plt Count Lymph % (Auto) Lymph # (Auto) Seg Neutrophils % Seg Neutrophils # PT INR ABG pH POC ABG pCO2 POC ABG pO2 ABG pO2 ABG Hemoglobin ABG Oxyhemoglobin ABG Sodium ABG Potassium ABG Glucose Sodium 133 L Potassium Chloride 95.8 L Carbon Dioxide BUN 48 H Creatinine 3.1 H Glucose 167 H POC Glucose 155 H Calcium Phosphorus 0.80 L* D Ammonia Total Protein Albumin TSH Arterial Blood Glucose Arterial Blood Ionized Calcium Phenytoin Valproic Acid 48.4 L 01/21/21 01/21/21 01/21/21 00:55 05:20 06:39 WBC 17.5 H RBC 3.62 L Hgb 9.6 L Hct 29.7 L MCV 82 L MCH 26 L RDW 21.4 H Plt Count 126 L Lymph % (Auto) Lymph # (Auto) Seg Neutrophils % Seg Neutrophils # PT INR ABG pH POC ABG pCO2 POC ABG pO2 ABG pO2 ABG Hemoglobin ABG Oxyhemoglobin ABG Sodium ABG Potassium ABG Glucose Sodium Potassium Chloride Carbon Dioxide BUN Creatinine Glucose POC Glucose 134 H 170 H Calcium Phosphorus Ammonia Total Protein Albumin TSH Arterial Blood Glucose Arterial Blood Ionized Calcium Phenytoin Valproic Acid 01/21/21 01/21/21 01/21/21 06:39 11:32 17:41 WBC RBC Hgb Hct MCV MCH RDW Plt Count Lymph % (Auto) Lymph # (Auto) Seg Neutrophils % Seg Neutrophils # PT INR ABG pH POC ABG pCO2 POC ABG pO2 ABG pO2 ABG Hemoglobin ABG Oxyhemoglobin ABG Sodium ABG Potassium ABG Glucose Sodium 133 L Potassium Chloride 95.9 L Carbon Dioxide BUN 56 H Creatinine 3.2 H Glucose 159 H POC Glucose 159 H 137 H Calcium Phosphorus 2.30 L D Ammonia Total Protein Albumin TSH Arterial Blood Glucose Arterial Blood Ionized Calcium Phenytoin Valproic Acid 01/21/21 01/22/21 01/22/21 23:48 04:00 04:20 WBC 14.0 H RBC 3.47 L Hgb 9.3 L Hct 28.6 L MCV 83 L MCH 27 L RDW 21.4 H Plt Count 129 L Lymph % (Auto) Lymph # (Auto) Seg Neutrophils % Seg Neutrophils # PT INR ABG pH POC ABG pCO2 POC ABG pO2 ABG pO2 118.8 H ABG Hemoglobin 9.6 L ABG Oxyhemoglobin ABG Sodium ABG Potassium ABG Glucose Sodium Potassium Chloride Carbon Dioxide BUN Creatinine Glucose POC Glucose 203 H Calcium Phosphorus Ammonia Total Protein Albumin TSH Arterial Blood Glucose Arterial Blood Ionized Calcium Phenytoin Valproic Acid 01/22/21 01/22/21 01/22/21 04:20 04:20 04:20 WBC RBC Hgb Hct MCV MCH RDW Plt Count Lymph % (Auto) Lymph # (Auto) Seg Neutrophils % Seg Neutrophils # PT INR ABG pH POC ABG pCO2 POC ABG pO2 ABG pO2 ABG Hemoglobin ABG Oxyhemoglobin ABG Sodium ABG Potassium ABG Glucose Sodium 131 L Potassium Chloride 92.9 L Carbon Dioxide 21 L BUN 69 H Creatinine 3.9 H Glucose 230 H POC Glucose Calcium 8.1 L Phosphorus Ammonia 19.0 L Total Protein 5.2 L Albumin 1.9 L TSH 4.730 H Arterial Blood Glucose Arterial Blood Ionized Calcium Phenytoin Valproic Acid 01/22/21 01/22/21 01/22/21 04:20 05:14 11:36 WBC RBC Hgb Hct MCV MCH RDW Plt Count Lymph % (Auto) Lymph # (Auto) Seg Neutrophils % Seg Neutrophils # PT 15.2 H INR 1.15 H ABG pH POC ABG pCO2 POC ABG pO2 ABG pO2 ABG Hemoglobin ABG Oxyhemoglobin ABG Sodium ABG Potassium ABG Glucose Sodium Potassium Chloride Carbon Dioxide BUN Creatinine Glucose POC Glucose 213 H 151 H Calcium Phosphorus Ammonia Total Protein Albumin TSH Arterial Blood Glucose Arterial Blood Ionized Calcium Phenytoin Valproic Acid 01/22/21 01/23/21 01/23/21 17:47 00:06 04:41 WBC 18.5 H RBC 3.43 L Hgb 9.0 L Hct 28.1 L MCV 82 L MCH 26 L RDW 21.6 H Plt Count Lymph % (Auto) Lymph # (Auto) Seg Neutrophils % Seg Neutrophils # PT INR ABG pH POC ABG pCO2 POC ABG pO2 ABG pO2 ABG Hemoglobin ABG Oxyhemoglobin ABG Sodium ABG Potassium ABG Glucose Sodium Potassium Chloride Carbon Dioxide BUN Creatinine Glucose POC Glucose 271 H 295 H Calcium Phosphorus Ammonia Total Protein Albumin TSH Arterial Blood Glucose Arterial Blood Ionized Calcium Phenytoin Valproic Acid 01/23/21 01/23/21 01/23/21 04:41 05:31 11:54 WBC RBC Hgb Hct MCV MCH RDW Plt Count Lymph % (Auto) Lymph # (Auto) Seg Neutrophils % Seg Neutrophils # PT INR ABG pH POC ABG pCO2 POC ABG pO2 ABG pO2 ABG Hemoglobin ABG Oxyhemoglobin ABG Sodium ABG Potassium ABG Glucose Sodium 135 L Potassium Chloride Carbon Dioxide BUN 53 H Creatinine 3.1 H Glucose 187 H POC Glucose 183 H 178 H Calcium Phosphorus Ammonia Total Protein Albumin TSH Arterial Blood Glucose Arterial Blood Ionized Calcium Phenytoin Valproic Acid
[2021-01-23] MEDS: levETIRAcetam 500 MG/5 ML ORAL LIQD PO SCH (21:36)
[2021-01-24] MEDS: INSULIN LISPRO 100 UNIT/ML SUB-Q SCH ×3 (05:46→18:19)
[2021-01-24] MEDS: EPOETIN ALFA-EPBX 10,000 UNIT/1 ML VIAL SUB-Q PRN (08:58)
--- NOTE | 2021-01-24 09:15 | Progress Note ---
Assessment and Plan 1.ESRD: Patient is on maintenance hemodialysis three times a week, TTS schedule. Last outpatient HD 01/12/2021. Meds dosage based on GFR. Hemodialysis: 01/15, 01/16, 01/17(UF), 01/18, 01/22. 2. FEN: Volume overload, UF with HD. Hyponatremia, improved, monitor. Monitor lytes and volume status. 3. Acute resp failure: Currently intubated, on vent. Extubated 01/17. Re-intubated 01/17. Wean as tolerated. 4. Shock: Off pressors. Monitor. 5. New onset of possible witnessed seizure during dialysis: CT brain remarkable for white matter changes. MRI brain: small SDH, chronic changes. On Keppra. Seizure precaution. Followed by Neuro. 6. Advanced dementia: CT white matter changes. 7. Failure to thrive: PEG tube. 8. Anemia, POA: Epogen with HD. 9. DM type 2. 10. Acute metabolic encephalopathy: Followed by Neuro. Subjective: Patient was seen and examined at the bedside. Examination: General appearance: well-developed, appears stated age, no distress, intubated, on vent, FiO2 35% HEENT: ATNC, pupils equal Neck: Trachea midline Respiratory: ctab Cardiology: regular, S1S2, no murmur Abdomen: soft, not tender, BS heard, Peg tube noted Integumentary: warm, dry, no obvious rash Neurologic: not responding Ext: trace dependent edema noted Hemodialysis catheter: R IJ tunnel catheter Subjective Date of service: 01/24/21 Principal diagnosis: witnessed seizure hx of ESRD ,hyponatremia Objective - Vital Signs Vital signs: Vital Signs - 12hr 01/23/21 01/23/21 01/23/21 21:21 21:31 21:41 Temperature Pulse Rate 76 90 82 Pulse Rate [ From Monitor] Respiratory 16 23 22 Rate Blood Pressure 94/49 94/49 94/49 O2 Sat by Pulse 100 100 100 Oximetry O2 Sat by Pulse Oximetry [ Anterior Bilateral] 01/23/21 01/23/21 01/23/21 21:51 22:00 22:11 Temperature Pulse Rate 102 H 99 H 72 Pulse Rate [ From Monitor] Respiratory 20 21 22 Rate Blood Pressure 94/49 110/54 110/54 O2 Sat by Pulse 100 100 Oximetry O2 Sat by Pulse Oximetry [ Anterior Bilateral] 01/23/21 01/23/21 01/23/21 22:21 22:31 22:41 Temperature Pulse Rate 103 H 81 92 H Pulse Rate [ From Monitor] Respiratory 22 25 H 21 Rate Blood Pressure 110/54 110/54 110/54 O2 Sat by Pulse 100 100 100 Oximetry O2 Sat by Pulse Oximetry [ Anterior Bilateral] 01/23/21 01/23/21 01/23/21 22:51 23:00 23:11 Temperature Pulse Rate 85 90 105 H Pulse Rate [ From Monitor] Respiratory 26 H 24 14 Rate Blood Pressure 110/54 81/44 81/44 O2 Sat by Pulse 100 99 100 Oximetry O2 Sat by Pulse Oximetry [ Anterior Bilateral] 01/23/21 01/23/21 01/23/21 23:21 23:31 23:41 Temperature Pulse Rate 91 H 90 103 H Pulse Rate [ From Monitor] Respiratory 19 20 21 Rate Blood Pressure 81/44 81/44 97/47 O2 Sat by Pulse 100 99 99 Oximetry O2 Sat by Pulse Oximetry [ Anterior Bilateral] 01/23/21 01/24/21 01/24/21 23:51 00:00 00:01 Temperature 99.4 F Pulse Rate 92 H 101 H 110 H Pulse Rate [ 101 H From Monitor] Respiratory 25 H 18 Rate Blood Pressure 97/47 111/60 111/60 O2 Sat by Pulse 100 100 99 Oximetry O2 Sat by Pulse Oximetry [ Anterior Bilateral] 01/24/21 01/24/21 01/24/21 00:11 00:21 00:31 Temperature Pulse Rate 102 H 106 H 104 H Pulse Rate [ From Monitor] Respiratory 19 26 H 24 Rate Blood Pressure 111/60 111/60 111/60 O2 Sat by Pulse 99 99 100 Oximetry O2 Sat by Pulse Oximetry [ Anterior Bilateral] 01/24/21 01/24/21 01/24/21 00:41 00:51 01:00 Temperature Pulse Rate 100 H 102 H 105 H Pulse Rate [ From Monitor] Respiratory 18 22 23 Rate Blood Pressure 111/60 111/60 96/53 O2 Sat by Pulse 100 100 100 Oximetry O2 Sat by Pulse Oximetry [ Anterior Bilateral] 01/24/21 01/24/21 01/24/21 01:11 01:21 01:31 Temperature Pulse Rate 91 H 104 H 103 H Pulse Rate [ From Monitor] Respiratory 19 25 H 20 Rate Blood Pressure 96/53 96/53 96/53 O2 Sat by Pulse 100 100 100 Oximetry O2 Sat by Pulse Oximetry [ Anterior Bilateral] 01/24/21 01/24/21 01/24/21 01:41 01:51 02:00 Temperature Pulse Rate 103 H 70 102 H Pulse Rate [ From Monitor] Respiratory 23 23 15 Rate Blood Pressure 96/53 96/53 107/51 O2 Sat by Pulse 100 100 Oximetry O2 Sat by Pulse Oximetry [ Anterior Bilateral] 01/24/21 01/24/21 01/24/21 02:11 02:21 02:31 Temperature Pulse Rate 98 H 104 H 99 H Pulse Rate [ From Monitor] Respiratory 22 21 14 Rate Blood Pressure 107/51 107/51 107/51 O2 Sat by Pulse 100 100 100 Oximetry O2 Sat by Pulse Oximetry [ Anterior Bilateral] 01/24/21 01/24/21 01/24/21 02:41 02:51 03:00 Temperature Pulse Rate 81 105 H 100 H Pulse Rate [ From Monitor] Respiratory 11 L 19 19 Rate Blood Pressure 107/51 107/51 105/52 O2 Sat by Pulse 99 99 98 Oximetry O2 Sat by Pulse Oximetry [ Anterior Bilateral] 01/24/21 01/24/21 01/24/21 03:11 03:21 03:31 Temperature Pulse Rate 100 H 98 H 96 H Pulse Rate [ From Monitor] Respiratory 23 21 Rate Blood Pressure 105/52 105/52 105/52 O2 Sat by Pulse 100 99 99 Oximetry O2 Sat by Pulse Oximetry [ Anterior Bilateral] 01/24/21 01/24/21 01/24/21 03:40 03:41 03:51 Temperature 99.7 F H Pulse Rate 100 H 103 H Pulse Rate [ From Monitor] Respiratory 21 15 Rate Blood Pressure 105/52 105/52 O2 Sat by Pulse 100 100 Oximetry O2 Sat by Pulse Oximetry [ Anterior Bilateral] 01/24/21 01/24/21 01/24/21 04:00 04:03 04:11 Temperature Pulse Rate 77 100 H 102 H Pulse Rate [ 83 From Monitor] Respiratory 25 H 24 Rate Blood Pressure 102/54 102/54 102/54 O2 Sat by Pulse 100 100 100 Oximetry O2 Sat by Pulse Oximetry [ Anterior Bilateral] 01/24/21 01/24/21 01/24/21 04:21 04:31 04:41 Temperature Pulse Rate 95 H 84 100 H Pulse Rate [ From Monitor] Respiratory 19 22 22 Rate Blood Pressure 102/54 102/54 102/54 O2 Sat by Pulse 100 100 100 Oximetry O2 Sat by Pulse Oximetry [ Anterior Bilateral] 01/24/21 01/24/21 01/24/21 04:51 05:00 05:11 Temperature Pulse Rate 99 H 98 H 98 H Pulse Rate [ From Monitor] Respiratory 23 Rate Blood Pressure 102/54 109/60 109/60 O2 Sat by Pulse 100 100 Oximetry O2 Sat by Pulse Oximetry [ Anterior Bilateral] 01/24/21 01/24/21 01/24/21 05:21 05:31 05:41 Temperature Pulse Rate 99 H 100 H 99 H Pulse Rate [ From Monitor] Respiratory 23 21 Rate Blood Pressure 109/60 109/60 109/60 O2 Sat by Pulse 100 100 100 Oximetry O2 Sat by Pulse Oximetry [ Anterior Bilateral] 01/24/21 01/24/21 01/24/21 05:51 06:00 06:11 Temperature Pulse Rate 100 H 81 99 H Pulse Rate [ From Monitor] Respiratory 22 21 Rate Blood Pressure 109/60 109/60 102/56 O2 Sat by Pulse 100 100 100 Oximetry O2 Sat by Pulse Oximetry [ Anterior Bilateral] 01/24/21 01/24/21 01/24/21 06:20 06:21 06:30 Temperature 99.4 F Pulse Rate 94 H 99 H 91 H Pulse Rate [ From Monitor] Respiratory 21 23 Rate Blood Pressure 118/49 118/49 122/57 O2 Sat by Pulse 99 Oximetry O2 Sat by Pulse 100 Oximetry [ Anterior Bilateral] 01/24/21 01/24/21 01/24/21 06:31 06:41 06:45 Temperature Pulse Rate 100 H 75 81 Pulse Rate [ From Monitor] Respiratory 14 21 Rate Blood Pressure 122/57 135/51 135/51 O2 Sat by Pulse 99 100 Oximetry O2 Sat by Pulse Oximetry [ Anterior Bilateral] 01/24/21 01/24/21 01/24/21 06:50 07:00 07:01 Temperature Pulse Rate 98 H 89 103 H Pulse Rate [ From Monitor] Respiratory 19 17 Rate Blood Pressure 118/64 118/64 115/61 O2 Sat by Pulse 100 100 Oximetry O2 Sat by Pulse Oximetry [ Anterior Bilateral] 01/24/21 01/24/21 01/24/21 07:10 07:13 07:15 Temperature 98.6 F Pulse Rate 101 H 91 H 95 H Pulse Rate [ From Monitor] Respiratory 23 Rate Blood Pressure 115/61 107/62 115/61 O2 Sat by Pulse 100 Oximetry O2 Sat by Pulse Oximetry [ Anterior Bilateral] 01/24/21 01/24/21 01/24/21 07:20 07:30 07:40 Temperature Pulse Rate 88 85 93 H Pulse Rate [ From Monitor] Respiratory 17 25 H 24 Rate Blood Pressure 112/61 117/61 120/58 O2 Sat by Pulse 100 100 100 Oximetry O2 Sat by Pulse Oximetry [ Anterior Bilateral] 01/24/21 01/24/21 01/24/21 07:45 07:50 08:00 Temperature Pulse Rate 107 H 82 80 Pulse Rate [ From Monitor] Respiratory 22 28 H Rate Blood Pressure 117/61 115/62 111/57 O2 Sat by Pulse 100 Oximetry O2 Sat by Pulse Oximetry [ Anterior Bilateral] 01/24/21 01/24/21 01/24/21 08:10 08:15 08:20 Temperature Pulse Rate 100 H 83 109 H Pulse Rate [ From Monitor] Respiratory 28 H 29 H Rate Blood Pressure 113/62 115/62 123/60 O2 Sat by Pulse 100 100 Oximetry O2 Sat by Pulse Oximetry [ Anterior Bilateral] 01/24/21 01/24/21 01/24/21 08:30 08:40 08:45 Temperature Pulse Rate 102 H 95 H 98 H Pulse Rate [ From Monitor] Respiratory 28 H 22 Rate Blood Pressure 123/60 94/51 98/42 O2 Sat by Pulse 100 100 Oximetry O2 Sat by Pulse Oximetry [ Anterior Bilateral] 01/24/21 01/24/21 08:50 09:00 Temperature Pulse Rate 110 H 110 H Pulse Rate [ From Monitor] Respiratory 22 20 Rate Blood Pressure 96/57 99/56 O2 Sat by Pulse 100 100 Oximetry O2 Sat by Pulse Oximetry [ Anterior Bilateral] - Lab 01/23/21 04:41 01/23/21 04:41 Most recent lab results ABG pH 7.410 pH Units (7.350-7.450) 01/22/21 04:00 ABG pCO2 39.5 mm Hg 01/22/21 04:00 ABG pO2 118.8 mm Hg (80.0-90.0) H 01/22/21 04:00 ABG HCO3 24.5 mmol/L (20.0-26.0) 01/22/21 04:00 ABG O2 Saturation 98.3 % (95.0-99.0) 01/22/21 04:00 Calcium 8.6 mg/dL (8.4-10.2) 01/23/21 04:41 Phosphorus 3.70 mg/dL (2.5-4.5) D 01/22/21 04:20 Magnesium 2.00 mg/dL (1.7-2.3) 01/22/21 04:20 Medications & Allergies - Medications Allergies/Adverse Reactions: Allergies No Known Allergies Allergy (Verified 08/14/19 16:11) Home Medications: Home Medications Medication Instructions Recorded Confirmed Last Taken Type Alogliptin Benzoate [Alogliptin] 1 tab PO DAILY 10/02/20 01/23/21 Unknown History AtorvaSTATin [Lipitor] 40 mg PO QHS #30 10/11/20 01/23/21 Unknown Rx Doxazosin [Cardura] 4 mg PO QDAY #30 10/11/20 01/23/21 Unknown Rx Febuxostat 40 mg PO QDAY #30 10/11/20 01/23/21 Unknown Rx Ketotifen Fumarate 1 drop OU QDAY #1 bottle 10/11/20 01/23/21 Unknown Rx Lansoprazole Solutab [Prevacid 30 mg FEEDTUBE BID #60 tab.rapdis 10/11/20 01/23/21 Unknown Rx Solutab] Megestrol Acetate 40 mg PO QDAY #30 10/11/20 01/23/21 Unknown Rx Metoprolol [Lopressor TAB] 12.5 mg PO BID #60 tablet 10/11/20 01/23/21 Unknown Rx calcitrioL [Rocaltrol] 1 mcg PO QDAY #30 cap 10/11/20 01/23/21 Unknown Rx timoloL maleate [Timolol Maleate 1 drop OP BID #1 bottle 10/11/20 01/23/21 Unknown Rx 0.25%] Insulin Lispro [Humalog] 0 units SUB-Q QID 01/23/21 01/23/21 Unknown History Active Medications: Generic Name Dose Route Start Last Admin Trade Name Freq PRN Reason Stop Dose Admin Acetaminophen 650 mg 01/12/21 19:30 Acetaminophen 325 Mg Tab PO Q4H PRN Pain MILD(1-3)/Fever >100.5/ABEL Albuterol 2.5 mg 01/12/21 19:30 Albuterol 2.5 Mg/3 Ml Nebu IH Q4HRT PRN Shortness Of Breath Lipase/Protease/Amylase 1 each 01/13/21 10:11 Lipase 10,500/Protease 25,000/Amylase 43,750 (Units) Dr Silveira FEEDTUBE PRN PRN For Clogged Feeding Tube Atorvastatin Calcium 40 mg 01/12/21 22:00 01/23/21 21:35 Atorvastatin 40 Mg Tab PO 40 mg QHS NOLAN Administration Calcitriol 1 mcg 01/13/21 10:00 01/23/21 09:38 Calcitriol 0.5 Mcg Cap PO 1 mcg QDAY NOLAN Administration Docusate Sodium 100 mg 01/17/21 09:00 Docusate Sodium 100 Mg/10 Ml Oral Liqd PO BID PRN Constipation Doxazosin Mesylate 2 mg 01/18/21 10:00 01/23/21 09:38 Doxazosin 1 Mg Tab PO 2 mg QDAY NOLAN Administration Hydrophilic Ointment 1 applic 01/15/21 17:14 Lip Therapy Vaseline TP Q2HR PRN Dry Lips Sodium Chloride 100 mls @ 999 mls/hr 01/15/21 08:00 Nacl 0.9% IV DIONNA PRN Hypotension Insulin Human Lispro 0 unit 01/16/21 00:00 01/24/21 05:46 Insulin Lispro 100 Unit/Ml SUB-Q 6 unit Q6HR NOLAN Administration Protocol Lansoprazole 30 mg 01/12/21 22:00 01/23/21 21:35 Lansoprazole 30 Mg Solutab FEEDTUBE 30 mg BID NOLAN Administration Levetiracetam 250 mg 01/23/21 22:00 01/23/21 21:36 Levetiracetam 500 Mg/5 Ml Oral Liqd PO 250 mg QHS NOLAN Administration Linagliptin 5 mg 01/13/21 11:00 01/23/21 09:42 Linagliptin 5 Mg Tab PO 5 mg QDDIAB NOLAN Administration Multi-Ingred Cream/Lotion/Oil/Oint 1 applic 01/15/21 17:14 Mineral Oil/Petrolatum, White Ophth Oint 3.5 Gm OU Q4HR PRN Dry Eye(s) Ondansetron HCl 4 mg 01/12/21 19:30 Ondansetron 4 Mg/2 Ml Inj IV Q8H PRN Nausea And Vomiting Simple Syrup 15 ml 01/13/21 10:11 01/18/21 06:54 Simple Syrup 15 Ml FEEDTUBE 15 ml PRN PRN Administration Hypoglycemia Simple Syrup 30 ml 01/13/21 10:11 Simple Syrup 15 Ml FEEDTUBE PRN PRN Hypoglycemia Sodium Bicarbonate 325 mg 01/13/21 10:11 Sodium Bicarbonate 325 Mg Tab FEEDTUBE PRN PRN For Clogged Feeding Tube Sodium Chloride 10 ml 01/12/21 22:00 01/23/21 09:42 Sodium Chloride 0.9% 10 Ml Flush Syringe IV 10 ml BID NOLAN Administration Timolol Maleate 1 drops 01/17/21 10:00 01/23/21 09:39 Timolol 0.5% Ophth Soln 5 Ml OU 1 drops QDAY NOLAN Administration
--- NOTE | 2021-01-24 09:54 | Progress Note ---
Assessment and Plan 80 y/o with chronic seizure disorder, ESRD, HTN admitted with status epilepticus, requiring intubation for burst suppression. 01/24/21: Consult Dr. Guerrero for trach, patient already has peg. Continue supportive measures. Guarded to poor prognosis. 01/23/21: Long discussion with family over the phone at bedside. They had several questions about trach and weaning. Answered all questions as best as possible. Family going to discuss again today and will let us known tomorrow. Continue supportive measures. Guarded to poor prognosis. 01/22/21: Will discuss on rounds today the possibility of cutting back more on anti-epileptic meds to see if this helps with his mental state. Will reach out to family today to discuss next options and goals of care. He is currently not a candidate for extubation and may need trach and peg. Will call with CM. Continue daily PSV trials. 01/21/21: FiO2 now down to 30%. RT to attempt PSV today to see how patient tolerates. Not a candidate for extubation given his current mental state. Neuro did decrease meds more on yesterday Keppra daily and BID Valproic Acid. Will call family to update on current level of care. Overall prognosis remains guarded to poor. Will get Head CT today to rule out any new areas of ischemia or bleeding. 01/20/21: FiO2 stable on 45%. Hold on repeat Imaging for now. Will hold on Flumazenil therapy given his prior history of seizure. May need more HD tomorrow. Spoke with Daughter and over the phone to update and they asked me to call them again tomorrow. Will tell them that visiting hours are present if they choose to come. Guarded prognosis. 01/19/21: Dropped FiO2 to 45%. Await neurology eval today but need to consider repeat imaging of head as I have not explanation as to why patient is not responsive. Patient does not make any urine so not able to send UDS. Had HD on yesterday so next one would likely be Thursday. Renal to address electrolytes. Very very guarded prognosis. 01/18/21: EEG not officially read, but prelim is negative for seizures, just diffuse slowing. ABG is stable, not hypercapnic. Will send UDS to see if benzos are still in system. spoke with renal who will do HD today and manage electrolytes. DId order mag level given low levels of potassium. Overall prognosis is very guarded to poor. If not more responsive tomorrow, may need to consider repeat imaging of head/brain. 01/17/21: Extubate. HD today per renal. If tolerates both, transfer back to floor on new anti-epileptic regimen 1. Continue Versed at 3mg IV per Hour for the next 24 hours. 2. Repeat EEG tomorrow off Versed. 3. Will attempt to get this before HD tomorrow. 4. HD per renal, tomorrow as patient got HD yesterday CCT 31 minutes. Subjective Date of service: 01/24/21 Principal diagnosis: witnessed seizure hx of ESRD ,hyponatremia Interval history: Family requests trach. had HD, stable, no changes in mental state. Objective Vital Signs - 12hr 01/23/21 01/23/21 01/23/21 22:00 22:11 22:21 Temperature Pulse Rate 99 H 72 103 H Pulse Rate [ From Monitor] Respiratory 21 22 22 Rate Blood Pressure 110/54 110/54 110/54 O2 Sat by Pulse 100 100 Oximetry O2 Sat by Pulse Oximetry [ Anterior Bilateral] 01/23/21 01/23/21 01/23/21 22:31 22:41 22:51 Temperature Pulse Rate 81 92 H 85 Pulse Rate [ From Monitor] Respiratory 25 H 21 26 H Rate Blood Pressure 110/54 110/54 110/54 O2 Sat by Pulse 100 100 100 Oximetry O2 Sat by Pulse Oximetry [ Anterior Bilateral] 01/23/21 01/23/21 01/23/21 23:00 23:11 23:21 Temperature Pulse Rate 90 105 H 91 H Pulse Rate [ From Monitor] Respiratory 24 14 19 Rate Blood Pressure 81/44 81/44 81/44 O2 Sat by Pulse 99 100 100 Oximetry O2 Sat by Pulse Oximetry [ Anterior Bilateral] 01/23/21 01/23/21 01/23/21 23:31 23:41 23:51 Temperature Pulse Rate 90 103 H 92 H Pulse Rate [ From Monitor] Respiratory 20 21 25 H Rate Blood Pressure 81/44 97/47 97/47 O2 Sat by Pulse 99 99 100 Oximetry O2 Sat by Pulse Oximetry [ Anterior Bilateral] 01/24/21 01/24/21 01/24/21 00:00 00:01 00:11 Temperature 99.4 F Pulse Rate 101 H 110 H 102 H Pulse Rate [ 101 H From Monitor] Respiratory 18 19 Rate Blood Pressure 111/60 111/60 111/60 O2 Sat by Pulse 100 99 99 Oximetry O2 Sat by Pulse Oximetry [ Anterior Bilateral] 01/24/21 01/24/21 01/24/21 00:21 00:31 00:41 Temperature Pulse Rate 106 H 104 H 100 H Pulse Rate [ From Monitor] Respiratory 26 H 24 18 Rate Blood Pressure 111/60 111/60 111/60 O2 Sat by Pulse 99 100 100 Oximetry O2 Sat by Pulse Oximetry [ Anterior Bilateral] 01/24/21 01/24/21 01/24/21 00:51 01:00 01:11 Temperature Pulse Rate 102 H 105 H 91 H Pulse Rate [ From Monitor] Respiratory 22 23 19 Rate Blood Pressure 111/60 96/53 96/53 O2 Sat by Pulse 100 100 100 Oximetry O2 Sat by Pulse Oximetry [ Anterior Bilateral] 01/24/21 01/24/21 01/24/21 01:21 01:31 01:41 Temperature Pulse Rate 104 H 103 H 103 H Pulse Rate [ From Monitor] Respiratory 25 H 20 23 Rate Blood Pressure 96/53 96/53 96/53 O2 Sat by Pulse 100 100 100 Oximetry O2 Sat by Pulse Oximetry [ Anterior Bilateral] 01/24/21 01/24/21 01/24/21 01:51 02:00 02:11 Temperature Pulse Rate 70 102 H 98 H Pulse Rate [ From Monitor] Respiratory 23 15 22 Rate Blood Pressure 96/53 107/51 107/51 O2 Sat by Pulse 100 100 Oximetry O2 Sat by Pulse Oximetry [ Anterior Bilateral] 01/24/21 01/24/21 01/24/21 02:21 02:31 02:41 Temperature Pulse Rate 104 H 99 H 81 Pulse Rate [ From Monitor] Respiratory 21 14 11 L Rate Blood Pressure 107/51 107/51 107/51 O2 Sat by Pulse 100 100 99 Oximetry O2 Sat by Pulse Oximetry [ Anterior Bilateral] 01/24/21 01/24/21 01/24/21 02:51 03:00 03:11 Temperature Pulse Rate 105 H 100 H 100 H Pulse Rate [ From Monitor] Respiratory 19 19 22 Rate Blood Pressure 107/51 105/52 105/52 O2 Sat by Pulse 99 98 100 Oximetry O2 Sat by Pulse Oximetry [ Anterior Bilateral] 01/24/21 01/24/21 01/24/21 03:21 03:31 03:40 Temperature 99.7 F H Pulse Rate 98 H 96 H Pulse Rate [ From Monitor] Respiratory 21 Rate Blood Pressure 105/52 105/52 O2 Sat by Pulse 99 99 Oximetry O2 Sat by Pulse Oximetry [ Anterior Bilateral] 01/24/21 01/24/21 01/24/21 03:41 03:51 04:00 Temperature Pulse Rate 100 H 103 H 77 Pulse Rate [ 83 From Monitor] Respiratory 21 15 25 H Rate Blood Pressure 105/52 105/52 102/54 O2 Sat by Pulse 100 100 100 Oximetry O2 Sat by Pulse Oximetry [ Anterior Bilateral] 01/24/21 01/24/21 01/24/21 04:03 04:11 04:21 Temperature Pulse Rate 100 H 102 H 95 H Pulse Rate [ From Monitor] Respiratory 24 19 Rate Blood Pressure 102/54 102/54 102/54 O2 Sat by Pulse 100 100 100 Oximetry O2 Sat by Pulse Oximetry [ Anterior Bilateral] 01/24/21 01/24/21 01/24/21 04:31 04:41 04:51 Temperature Pulse Rate 84 100 H 99 H Pulse Rate [ From Monitor] Respiratory 21 Rate Blood Pressure 102/54 102/54 102/54 O2 Sat by Pulse 100 100 100 Oximetry O2 Sat by Pulse Oximetry [ Anterior Bilateral] 01/24/21 01/24/21 01/24/21 05:00 05:11 05:21 Temperature Pulse Rate 98 H 98 H 99 H Pulse Rate [ From Monitor] Respiratory 23 Rate Blood Pressure 109/60 109/60 109/60 O2 Sat by Pulse 100 100 Oximetry O2 Sat by Pulse Oximetry [ Anterior Bilateral] 01/24/21 01/24/21 01/24/21 05:31 05:41 05:51 Temperature Pulse Rate 100 H 99 H 100 H Pulse Rate [ From Monitor] Respiratory 23 22 Rate Blood Pressure 109/60 109/60 109/60 O2 Sat by Pulse 100 100 100 Oximetry O2 Sat by Pulse Oximetry [ Anterior Bilateral] 01/24/21 01/24/21 01/24/21 06:00 06:11 06:20 Temperature 99.4 F Pulse Rate 81 99 H 94 H Pulse Rate [ From Monitor] Respiratory 21 Rate Blood Pressure 109/60 102/56 118/49 O2 Sat by Pulse 100 100 Oximetry O2 Sat by Pulse 100 Oximetry [ Anterior Bilateral] 01/24/21 01/24/21 01/24/21 06:21 06:30 06:31 Temperature Pulse Rate 99 H 91 H 100 H Pulse Rate [ From Monitor] Respiratory 23 14 Rate Blood Pressure 118/49 122/57 122/57 O2 Sat by Pulse 99 99 Oximetry O2 Sat by Pulse Oximetry [ Anterior Bilateral] 01/24/21 01/24/21 01/24/21 06:41 06:45 06:50 Temperature Pulse Rate 75 81 98 H Pulse Rate [ From Monitor] Respiratory 21 19 Rate Blood Pressure 135/51 135/51 118/64 O2 Sat by Pulse 100 100 Oximetry O2 Sat by Pulse Oximetry [ Anterior Bilateral] 01/24/21 01/24/21 01/24/21 07:00 07:01 07:10 Temperature 98.6 F Pulse Rate 89 103 H 101 H Pulse Rate [ From Monitor] Respiratory 17 23 Rate Blood Pressure 118/64 115/61 115/61 O2 Sat by Pulse 100 Oximetry O2 Sat by Pulse Oximetry [ Anterior Bilateral] 01/24/21 01/24/21 01/24/21 07:13 07:15 07:20 Temperature Pulse Rate 91 H 95 H 88 Pulse Rate [ From Monitor] Respiratory 17 Rate Blood Pressure 107/62 115/61 112/61 O2 Sat by Pulse 100 100 Oximetry O2 Sat by Pulse Oximetry [ Anterior Bilateral] 01/24/21 01/24/21 01/24/21 07:30 07:40 07:45 Temperature Pulse Rate 85 93 H 107 H Pulse Rate [ From Monitor] Respiratory 25 H 24 Rate Blood Pressure 117/61 120/58 117/61 O2 Sat by Pulse 100 100 Oximetry O2 Sat by Pulse Oximetry [ Anterior Bilateral] 01/24/21 01/24/21 01/24/21 07:50 08:00 08:10 Temperature Pulse Rate 82 80 100 H Pulse Rate [ 101 H From Monitor] Respiratory 22 28 H 28 H Rate Blood Pressure 115/62 111/57 113/62 O2 Sat by Pulse 100 100 Oximetry O2 Sat by Pulse Oximetry [ Anterior Bilateral] 01/24/21 01/24/21 01/24/21 08:15 08:20 08:30 Temperature Pulse Rate 83 109 H 102 H Pulse Rate [ From Monitor] Respiratory 29 H 28 H Rate Blood Pressure 115/62 123/60 123/60 O2 Sat by Pulse 100 100 Oximetry O2 Sat by Pulse Oximetry [ Anterior Bilateral] 01/24/21 01/24/21 01/24/21 08:40 08:45 08:50 Temperature Pulse Rate 95 H 98 H 110 H Pulse Rate [ From Monitor] Respiratory 22 22 Rate Blood Pressure 94/51 98/42 96/57 O2 Sat by Pulse 100 100 Oximetry O2 Sat by Pulse Oximetry [ Anterior Bilateral] 01/24/21 01/24/21 09:00 09:15 Temperature Pulse Rate 110 H 106 H Pulse Rate [ From Monitor] Respiratory 20 Rate Blood Pressure 99/56 99/55 O2 Sat by Pulse 100 Oximetry O2 Sat by Pulse Oximetry [ Anterior Bilateral] Constitutional: no acute distress, comatose (secondary to meds for seizure) ENT: other (orally intubated and sedated) Neck: supple Effort: normal Ascultation: Bilateral: clear Cardiovascular: regular rate and rhythm Gastrointestinal: normoactive bowel sounds Integumentary: normal Extremities: no edema, pulses normal CBC and BMP: 01/23/21 04:41 01/23/21 04:41 ABG, PT/INR, D-dimer: ABG ABG pH 7.410 pH Units (7.350-7.450) 01/22/21 04:00 POC ABG pCO2 33.2 mmHg (32.0-48.0) 01/20/21 04:00 ABG pCO2 39.5 mm Hg 01/22/21 04:00 POC ABG pO2 97.9 mmHg (83-108) 01/20/21 04:00 ABG pO2 118.8 mm Hg (80.0-90.0) H 01/22/21 04:00 POC ABG HCO3 26.1 01/20/21 04:00 ABG O2 Saturation 98.3 % (95.0-99.0) 01/22/21 04:00 PT/INR, D-dimer PT 15.2 Sec. (12.2-14.9) H 01/22/21 04:20 INR 1.15 (0.87-1.13) H 01/22/21 04:20 Abnormal lab findings: Abnormal Labs 01/12/21 01/12/21 01/12/21 14:12 14:36 14:36 WBC 11.2 H RBC Hgb Hct MCV MCH 27 L RDW 21.0 H Plt Count Lymph % (Auto) Lymph # (Auto) Seg Neutrophils % 79.6 H Seg Neutrophils # 8.9 H PT INR ABG pH POC ABG pCO2 POC ABG pO2 ABG pO2 ABG Hemoglobin ABG Oxyhemoglobin ABG Sodium ABG Potassium ABG Glucose Sodium 136 L Potassium Chloride 95.8 L Carbon Dioxide 19 L BUN Creatinine 2.0 H Glucose 163 H POC Glucose 166 H Calcium 8.2 L Phosphorus Ammonia Total Protein 5.4 L Albumin 3.4 L TSH Arterial Blood Glucose Arterial Blood Ionized Calcium Phenytoin Valproic Acid 01/13/21 01/13/21 01/13/21 05:19 12:14 16:16 WBC RBC Hgb Hct MCV MCH RDW Plt Count Lymph % (Auto) Lymph # (Auto) Seg Neutrophils % Seg Neutrophils # PT INR ABG pH POC ABG pCO2 POC ABG pO2 ABG pO2 ABG Hemoglobin ABG Oxyhemoglobin ABG Sodium ABG Potassium ABG Glucose Sodium 134 L Potassium Chloride 95.5 L Carbon Dioxide BUN 23 H Creatinine 2.6 H Glucose 168 H POC Glucose 142 H 163 H Calcium Phosphorus Ammonia Total Protein 5.8 L Albumin 3.3 L TSH Arterial Blood Glucose Arterial Blood Ionized Calcium Phenytoin Valproic Acid 01/13/21 01/13/21 01/14/21 20:22 23:57 06:31 WBC RBC Hgb Hct MCV MCH RDW Plt Count Lymph % (Auto) Lymph # (Auto) Seg Neutrophils % Seg Neutrophils # PT INR ABG pH POC ABG pCO2 POC ABG pO2 ABG pO2 ABG Hemoglobin ABG Oxyhemoglobin ABG Sodium ABG Potassium ABG Glucose Sodium Potassium Chloride Carbon Dioxide BUN Creatinine Glucose POC Glucose 209 H 189 H 236 H Calcium Phosphorus Ammonia Total Protein Albumin TSH Arterial Blood Glucose Arterial Blood Ionized Calcium Phenytoin Valproic Acid 01/14/21 01/14/21 01/14/21 08:57 08:57 12:22 WBC 12.0 H RBC Hgb 11.3 L Hct 34.5 L MCV MCH RDW 20.6 H Plt Count Lymph % (Auto) 6.4 L Lymph # (Auto) 0.8 L Seg Neutrophils % 87.4 H Seg Neutrophils # 10.5 H PT INR ABG pH POC ABG pCO2 POC ABG pO2 ABG pO2 ABG Hemoglobin ABG Oxyhemoglobin ABG Sodium ABG Potassium ABG Glucose Sodium 131 L Potassium Chloride 93.7 L Carbon Dioxide BUN 37 H Creatinine 3.7 H Glucose 261 H POC Glucose 280 H Calcium Phosphorus Ammonia Total Protein Albumin TSH Arterial Blood Glucose Arterial Blood Ionized Calcium Phenytoin Valproic Acid 01/14/21 01/14/21 01/15/21 16:15 22:28 04:43 WBC RBC Hgb Hct MCV MCH RDW Plt Count Lymph % (Auto) Lymph # (Auto) Seg Neutrophils % Seg Neutrophils # PT INR ABG pH POC ABG pCO2 POC ABG pO2 ABG pO2 ABG Hemoglobin ABG Oxyhemoglobin ABG Sodium ABG Potassium ABG Glucose Sodium Potassium Chloride Carbon Dioxide BUN Creatinine Glucose POC Glucose 289 H 252 H 243 H Calcium Phosphorus Ammonia Total Protein Albumin TSH Arterial Blood Glucose Arterial Blood Ionized Calcium Phenytoin Valproic Acid 01/15/21 01/15/21 01/15/21 05:22 05:22 08:56 WBC 11.1 H RBC Hgb 11.0 L Hct 33.3 L MCV 83 L MCH 27 L RDW 20.6 H Plt Count Lymph % (Auto) 6.3 L Lymph # (Auto) 0.7 L Seg Neutrophils % 88.2 H Seg Neutrophils # 9.8 H PT INR ABG pH POC ABG pCO2 POC ABG pO2 ABG pO2 ABG Hemoglobin ABG Oxyhemoglobin ABG Sodium ABG Potassium ABG Glucose Sodium 130 L Potassium Chloride 92.0 L Carbon Dioxide BUN 49 H Creatinine 4.2 H Glucose 241 H POC Glucose Calcium Phosphorus Ammonia Total Protein Albumin TSH Arterial Blood Glucose Arterial Blood Ionized Calcium Phenytoin Valproic Acid 45.9 L 01/15/21 01/15/21 01/15/21 16:42 18:14 23:10 WBC RBC Hgb Hct MCV MCH RDW Plt Count Lymph % (Auto) Lymph # (Auto) Seg Neutrophils % Seg Neutrophils # PT INR ABG pH 7.463 H POC ABG pCO2 POC ABG pO2 377.4 H ABG pO2 ABG Hemoglobin 11.6 L ABG Oxyhemoglobin 98.6 H ABG Sodium 130.1 L ABG Potassium ABG Glucose 254 H Sodium Potassium Chloride Carbon Dioxide BUN Creatinine Glucose POC Glucose 218 H 279 H Calcium Phosphorus Ammonia Total Protein Albumin TSH Arterial Blood Glucose 254 H Arterial Blood Ionized Calcium 4.5 L Phenytoin Valproic Acid 01/16/21 01/16/21 01/16/21 03:10 05:11 05:17 WBC RBC Hgb 10.4 L Hct 31.8 L MCV MCH 27 L RDW 20.3 H Plt Count 132 L Lymph % (Auto) Lymph # (Auto) Seg Neutrophils % Seg Neutrophils # PT INR ABG pH POC ABG pCO2 POC ABG pO2 174.4 H ABG pO2 ABG Hemoglobin 10.3 L ABG Oxyhemoglobin 98.6 H ABG Sodium 129.9 L ABG Potassium 3.2 L ABG Glucose 202 H Sodium Potassium Chloride Carbon Dioxide BUN Creatinine Glucose POC Glucose 193 H Calcium Phosphorus Ammonia Total Protein Albumin TSH Arterial Blood Glucose 202 H Arterial Blood Ionized Calcium Phenytoin Valproic Acid 01/16/21 01/16/21 01/16/21 05:17 09:15 11:33 WBC RBC Hgb Hct MCV MCH RDW Plt Count Lymph % (Auto) Lymph # (Auto) Seg Neutrophils % Seg Neutrophils # PT INR ABG pH POC ABG pCO2 POC ABG pO2 ABG pO2 ABG Hemoglobin ABG Oxyhemoglobin ABG Sodium ABG Potassium ABG Glucose Sodium Potassium 3.4 L Chloride Carbon Dioxide BUN 36 H Creatinine 3.2 H Glucose 216 H POC Glucose 174 H Calcium 8.3 L Phosphorus 1.10 L Ammonia Total Protein Albumin TSH Arterial Blood Glucose Arterial Blood Ionized Calcium Phenytoin 6.5 L Valproic Acid 01/16/21 01/17/21 01/17/21 18:13 00:10 04:00 WBC RBC Hgb Hct MCV MCH RDW Plt Count Lymph % (Auto) Lymph # (Auto) Seg Neutrophils % Seg Neutrophils # PT INR ABG pH POC ABG pCO2 POC ABG pO2 ABG pO2 ABG Hemoglobin 10.1 L ABG Oxyhemoglobin ABG Sodium 130.1 L ABG Potassium 3.3 L ABG Glucose 153 H Sodium Potassium Chloride Carbon Dioxide BUN Creatinine Glucose POC Glucose 162 H 150 H Calcium Phosphorus Ammonia Total Protein Albumin TSH Arterial Blood Glucose 153 H Arterial Blood Ionized Calcium Phenytoin Valproic Acid 01/17/21 01/17/21 01/17/21 05:30 05:48 11:14 WBC RBC Hgb Hct MCV MCH RDW Plt Count Lymph % (Auto) Lymph # (Auto) Seg Neutrophils % Seg Neutrophils # PT INR ABG pH POC ABG pCO2 POC ABG pO2 ABG pO2 ABG Hemoglobin ABG Oxyhemoglobin ABG Sodium ABG Potassium ABG Glucose Sodium 136 L Potassium 3.5 L Chloride Carbon Dioxide BUN 48 H Creatinine 3.5 H Glucose 165 H POC Glucose 149 H Calcium 8.0 L Phosphorus 0.80 L* D Ammonia 22.0 L Total Protein Albumin TSH Arterial Blood Glucose Arterial Blood Ionized Calcium Phenytoin Valproic Acid 01/17/21 01/17/21 01/17/21 11:43 17:34 18:46 WBC RBC Hgb Hct MCV MCH RDW Plt Count Lymph % (Auto) Lymph # (Auto) Seg Neutrophils % Seg Neutrophils # PT INR ABG pH POC ABG pCO2 POC ABG pO2 ABG pO2 ABG Hemoglobin ABG Oxyhemoglobin ABG Sodium ABG Potassium ABG Glucose Sodium Potassium Chloride Carbon Dioxide BUN Creatinine Glucose POC Glucose 160 H 209 H Calcium Phosphorus 2.20 L D Ammonia Total Protein Albumin TSH Arterial Blood Glucose Arterial Blood Ionized Calcium Phenytoin Valproic Acid 01/17/21 01/17/21 01/18/21 19:00 23:19 03:28 WBC RBC Hgb Hct MCV MCH RDW Plt Count Lymph % (Auto) Lymph # (Auto) Seg Neutrophils % Seg Neutrophils # PT INR ABG pH POC ABG pCO2 POC ABG pO2 190.2 H ABG pO2 ABG Hemoglobin 11.9 L ABG Oxyhemoglobin 98.5 H ABG Sodium 130.9 L 131.0 L ABG Potassium 3.0 L 2.8 L ABG Glucose 241 H Sodium Potassium Chloride Carbon Dioxide BUN Creatinine Glucose POC Glucose 222 H Calcium Phosphorus Ammonia Total Protein Albumin TSH Arterial Blood Glucose 241 H Arterial Blood Ionized Calcium 4.5 L Phenytoin Valproic Acid 01/18/21 01/18/21 01/18/21 04:16 06:20 10:20 WBC 14.1 H RBC Hgb 11.2 L Hct 34.5 L MCV 83 L MCH 27 L RDW 20.8 H Plt Count 116 L Lymph % (Auto) Lymph # (Auto) Seg Neutrophils % Seg Neutrophils # PT INR ABG pH POC ABG pCO2 POC ABG pO2 ABG pO2 ABG Hemoglobin ABG Oxyhemoglobin ABG Sodium ABG Potassium ABG Glucose Sodium 134 L Potassium 2.9 L* Chloride Carbon Dioxide 21 L BUN 60 H Creatinine 3.9 H Glucose POC Glucose 69 L Calcium Phosphorus 1.60 L D Ammonia Total Protein Albumin TSH Arterial Blood Glucose Arterial Blood Ionized Calcium Phenytoin Valproic Acid 01/18/21 01/18/21 01/18/21 11:29 15:30 17:23 WBC RBC Hgb Hct MCV MCH RDW Plt Count Lymph % (Auto) Lymph # (Auto) Seg Neutrophils % Seg Neutrophils # PT INR ABG pH POC ABG pCO2 POC ABG pO2 ABG pO2 ABG Hemoglobin ABG Oxyhemoglobin ABG Sodium ABG Potassium ABG Glucose Sodium Potassium 3.3 L Chloride Carbon Dioxide BUN 42 H Creatinine 3.1 H Glucose 190 H POC Glucose 128 H 167 H Calcium 8.2 L Phosphorus 1.10 L D Ammonia Total Protein Albumin TSH Arterial Blood Glucose Arterial Blood Ionized Calcium Phenytoin Valproic Acid 01/18/21 01/19/21 01/19/21 23:43 03:43 04:38 WBC RBC Hgb Hct MCV MCH RDW Plt Count Lymph % (Auto) Lymph # (Auto) Seg Neutrophils % Seg Neutrophils # PT INR ABG pH 7.536 H POC ABG pCO2 27.0 L POC ABG pO2 165.8 H ABG pO2 ABG Hemoglobin 10.7 L ABG Oxyhemoglobin 98.4 H ABG Sodium 131.3 L ABG Potassium ABG Glucose 152 H Sodium Potassium Chloride Carbon Dioxide BUN 55 H Creatinine 3.8 H Glucose 143 H POC Glucose 232 H Calcium Phosphorus 1.10 L Ammonia Total Protein Albumin TSH Arterial Blood Glucose 152 H Arterial Blood Ionized Calcium Phenytoin Valproic Acid 01/19/21 01/19/21 01/19/21 05:12 11:36 15:16 WBC RBC Hgb Hct MCV MCH RDW Plt Count Lymph % (Auto) Lymph # (Auto) Seg Neutrophils % Seg Neutrophils # PT INR ABG pH POC ABG pCO2 POC ABG pO2 ABG pO2 ABG Hemoglobin ABG Oxyhemoglobin ABG Sodium ABG Potassium ABG Glucose Sodium Potassium Chloride Carbon Dioxide BUN Creatinine Glucose POC Glucose 135 H 201 H Calcium Phosphorus 1.10 L Ammonia Total Protein Albumin TSH Arterial Blood Glucose Arterial Blood Ionized Calcium Phenytoin Valproic Acid 01/19/21 01/19/21 01/20/21 17:55 23:22 04:00 WBC RBC Hgb Hct MCV MCH RDW Plt Count Lymph % (Auto) Lymph # (Auto) Seg Neutrophils % Seg Neutrophils # PT INR ABG pH 7.513 H POC ABG pCO2 POC ABG pO2 ABG pO2 ABG Hemoglobin 9.9 L ABG Oxyhemoglobin ABG Sodium 129.4 L ABG Potassium ABG Glucose 196 H Sodium Potassium Chloride Carbon Dioxide BUN Creatinine Glucose POC Glucose 222 H 252 H Calcium Phosphorus Ammonia Total Protein Albumin TSH Arterial Blood Glucose 196 H Arterial Blood Ionized Calcium Phenytoin Valproic Acid 01/20/21 01/20/21 01/20/21 05:15 11:15 14:49 WBC 16.1 H RBC Hgb 9.9 L Hct 30.3 L MCV 82 L MCH 27 L RDW 20.7 H Plt Count 114 L Lymph % (Auto) Lymph # (Auto) Seg Neutrophils % Seg Neutrophils # PT INR ABG pH POC ABG pCO2 POC ABG pO2 ABG pO2 ABG Hemoglobin ABG Oxyhemoglobin ABG Sodium ABG Potassium ABG Glucose Sodium Potassium Chloride Carbon Dioxide BUN Creatinine Glucose POC Glucose 163 H 149 H Calcium Phosphorus Ammonia Total Protein Albumin TSH Arterial Blood Glucose Arterial Blood Ionized Calcium Phenytoin Valproic Acid 01/20/21 01/20/21 01/20/21 14:49 14:49 17:12 WBC RBC Hgb Hct MCV MCH RDW Plt Count Lymph % (Auto) Lymph # (Auto) Seg Neutrophils % Seg Neutrophils # PT INR ABG pH POC ABG pCO2 POC ABG pO2 ABG pO2 ABG Hemoglobin ABG Oxyhemoglobin ABG Sodium ABG Potassium ABG Glucose Sodium 133 L Potassium Chloride 95.8 L Carbon Dioxide BUN 48 H Creatinine 3.1 H Glucose 167 H POC Glucose 155 H Calcium Phosphorus 0.80 L* D Ammonia Total Protein Albumin TSH Arterial Blood Glucose Arterial Blood Ionized Calcium Phenytoin Valproic Acid 48.4 L 01/21/21 01/21/21 01/21/21 00:55 05:20 06:39 WBC 17.5 H RBC 3.62 L Hgb 9.6 L Hct 29.7 L MCV 82 L MCH 26 L RDW 21.4 H Plt Count 126 L Lymph % (Auto) Lymph # (Auto) Seg Neutrophils % Seg Neutrophils # PT INR ABG pH POC ABG pCO2 POC ABG pO2 ABG pO2 ABG Hemoglobin ABG Oxyhemoglobin ABG Sodium ABG Potassium ABG Glucose Sodium Potassium Chloride Carbon Dioxide BUN Creatinine Glucose POC Glucose 134 H 170 H Calcium Phosphorus Ammonia Total Protein Albumin TSH Arterial Blood Glucose Arterial Blood Ionized Calcium Phenytoin Valproic Acid 01/21/21 01/21/21 01/21/21 06:39 11:32 17:41 WBC RBC Hgb Hct MCV MCH RDW Plt Count Lymph % (Auto) Lymph # (Auto) Seg Neutrophils % Seg Neutrophils # PT INR ABG pH POC ABG pCO2 POC ABG pO2 ABG pO2 ABG Hemoglobin ABG Oxyhemoglobin ABG Sodium ABG Potassium ABG Glucose Sodium 133 L Potassium Chloride 95.9 L Carbon Dioxide BUN 56 H Creatinine 3.2 H Glucose 159 H POC Glucose 159 H 137 H Calcium Phosphorus 2.30 L D Ammonia Total Protein Albumin TSH Arterial Blood Glucose Arterial Blood Ionized Calcium Phenytoin Valproic Acid 01/21/21 01/22/21 01/22/21 23:48 04:00 04:20 WBC 14.0 H RBC 3.47 L Hgb 9.3 L Hct 28.6 L MCV 83 L MCH 27 L RDW 21.4 H Plt Count 129 L Lymph % (Auto) Lymph # (Auto) Seg Neutrophils % Seg Neutrophils # PT INR ABG pH POC ABG pCO2 POC ABG pO2 ABG pO2 118.8 H ABG Hemoglobin 9.6 L ABG Oxyhemoglobin ABG Sodium ABG Potassium ABG Glucose Sodium Potassium Chloride Carbon Dioxide BUN Creatinine Glucose POC Glucose 203 H Calcium Phosphorus Ammonia Total Protein Albumin TSH Arterial Blood Glucose Arterial Blood Ionized Calcium Phenytoin Valproic Acid 01/22/21 01/22/21 01/22/21 04:20 04:20 04:20 WBC RBC Hgb Hct MCV MCH RDW Plt Count Lymph % (Auto) Lymph # (Auto) Seg Neutrophils % Seg Neutrophils # PT INR ABG pH POC ABG pCO2 POC ABG pO2 ABG pO2 ABG Hemoglobin ABG Oxyhemoglobin ABG Sodium ABG Potassium ABG Glucose Sodium 131 L Potassium Chloride 92.9 L Carbon Dioxide 21 L BUN 69 H Creatinine 3.9 H Glucose 230 H POC Glucose Calcium 8.1 L Phosphorus Ammonia 19.0 L Total Protein 5.2 L Albumin 1.9 L TSH 4.730 H Arterial Blood Glucose Arterial Blood Ionized Calcium Phenytoin Valproic Acid 01/22/21 01/22/21 01/22/21 04:20 05:14 11:36 WBC RBC Hgb Hct MCV MCH RDW Plt Count Lymph % (Auto) Lymph # (Auto) Seg Neutrophils % Seg Neutrophils # PT 15.2 H INR 1.15 H ABG pH POC ABG pCO2 POC ABG pO2 ABG pO2 ABG Hemoglobin ABG Oxyhemoglobin ABG Sodium ABG Potassium ABG Glucose Sodium Potassium Chloride Carbon Dioxide BUN Creatinine Glucose POC Glucose 213 H 151 H Calcium Phosphorus Ammonia Total Protein Albumin TSH Arterial Blood Glucose Arterial Blood Ionized Calcium Phenytoin Valproic Acid 01/22/21 01/23/21 01/23/21 17:47 00:06 04:41 WBC 18.5 H RBC 3.43 L Hgb 9.0 L Hct 28.1 L MCV 82 L MCH 26 L RDW 21.6 H Plt Count Lymph % (Auto) Lymph # (Auto) Seg Neutrophils % Seg Neutrophils # PT INR ABG pH POC ABG pCO2 POC ABG pO2 ABG pO2 ABG Hemoglobin ABG Oxyhemoglobin ABG Sodium ABG Potassium ABG Glucose Sodium Potassium Chloride Carbon Dioxide BUN Creatinine Glucose POC Glucose 271 H 295 H Calcium Phosphorus Ammonia Total Protein Albumin TSH Arterial Blood Glucose Arterial Blood Ionized Calcium Phenytoin Valproic Acid 01/23/21 01/23/21 01/23/21 04:41 05:31 11:54 WBC RBC Hgb Hct MCV MCH RDW Plt Count Lymph % (Auto) Lymph # (Auto) Seg Neutrophils % Seg Neutrophils # PT INR ABG pH POC ABG pCO2 POC ABG pO2 ABG pO2 ABG Hemoglobin ABG Oxyhemoglobin ABG Sodium ABG Potassium ABG Glucose Sodium 135 L Potassium Chloride Carbon Dioxide BUN 53 H Creatinine 3.1 H Glucose 187 H POC Glucose 183 H 178 H Calcium Phosphorus Ammonia Total Protein Albumin TSH Arterial Blood Glucose Arterial Blood Ionized Calcium Phenytoin Valproic Acid 01/23/21 01/23/21 01/24/21 17:54 23:15 05:27 WBC RBC Hgb Hct MCV MCH RDW Plt Count Lymph % (Auto) Lymph # (Auto) Seg Neutrophils % Seg Neutrophils # PT INR ABG pH POC ABG pCO2 POC ABG pO2 ABG pO2 ABG Hemoglobin ABG Oxyhemoglobin ABG Sodium ABG Potassium ABG Glucose Sodium Potassium Chloride Carbon Dioxide BUN Creatinine Glucose POC Glucose 243 H 241 H 298 H Calcium Phosphorus Ammonia Total Protein Albumin TSH Arterial Blood Glucose Arterial Blood Ionized Calcium Phenytoin Valproic Acid
[2021-01-24] MEDS: LINAGLIPTIN 5 MG TAB PO SCH (09:56)
[2021-01-24] MEDS: TIMOLOL 0.5% OPHTH SOLN 5 ML OU SCH (09:56)
[2021-01-24] MEDS: LANSOPRAZOLE 30 MG SOLUTAB FEEDTUBE SCH ×2 (09:56→21:24)
[2021-01-24] MEDS: DOXAZOSIN 1 MG TAB PO SCH (09:56)
[2021-01-24] MEDS: CALCITRIOL 0.5 MCG CAP PO SCH (09:56)
--- NOTE | 2021-01-24 11:30 | Progress Note ---
Assessment and Plan Assessment and plan: 80 YO Male Group Home Facility Resident with ESRD on HD(T,R,Sa), HLD, HTN, Vascular Dementia, Cerebral Atherosclerosi admitted with diagnosis of new onset seizure. Patient was started on IV Keppra. Patient has had no new seizure activity. Acute hypoxic respiratory failure. Intubated 01/15 for possible status epilepticus however patient was extubated on 01/17 and had to be reintubated on 01/17 for hypoxia. new onset seizure disorder. Vascular dementia Chronic SDH. Holding aspirin Cerebral atherosclerosis ESRD A. fib with RVR Hypertension Oropharyngeal dysphagia. Chronic PEG tube Anemia of chronic disease 01/13/2021. Seizure precautions. Continue IV Keppra and await neurology ev aluation. Check EEG and MRI. CT scan negative. Continue hemodialysis per nephrology recommendations. 01/14/2021. Patient is somnolent and lethargic. However, no new seizure activity noted. CT brain is remarkable for white matter changes. Continue seizure precautions. Follow-up EEG and MRI brain. Neurology decrease Keppra to 250 mg twice daily. Ativan as needed for seizure. Continue hemodialysis per nephrology recommendation 01/15 EEG shows burst suppression pattern, intermittent sharp electric activity is noted throughout the recording, pronounced in the right frontal region, findings consistent with generalized seizure activity 01/16 EEG shows findings of generalized burst suppression as well as recurrent triphasic waves sinuses Rocephin for the process, and her drug effect, reports after stage cannot be excluded, possibility of toxic metabolic and/or hepatic and/or renal insufficiency cannot be excluded 01/17 EEG shows significant improvement previous recording, no epileptiform discharges noted, no runs of sharp looking activity is appreciated, intermittent triphasic waves noted mostly bifrontally and improvement in the background activity to 4-6 Hz noted throughout the recording, concerning suggestive of mild encephalopathic process and/or postictal state of possibility of flexor metabolic etiology cannot be totally excluded 01/18 EEG interpreted as mildly encephalopathic process with background 4-5 Hz noted throughout the recording with triphasic waves noted occasionally and vertex waves centrally more pronounced on the left side, no epileptiform disc harge appreciated, suggestive of possible toxic metabolic and/or drug effect, possibility of postictal state cannot be totally excluded. Hypokalemia today to 2.9 and hypophosphatemia to 1.6, patient received 40 M EQ of KCl, PhosNak for 1 day. Will obtain pm labs. Pateint is less responsive today but Neuro does not think he had another seizure. Thrombocytopenia, will trend CBC. Patient became hypoxic towards the end of dialysis and failed BiPAP therapy and had to be intubated for hypoxia. 01/19: UDS shows presumptive benzo, HD today per nephro, Phos remains low but s till has not completed supplementation. Nephro suggests flumazenil. 01/20: On CMV tidal volume 550, rate of 18, PEEP of 6 on 45% FiO2, patient has a better physical exam with neurology this morning. AM labs pending. 01/20 no acute events overnight 01/21 noted to be in afib this AM. 01/22. Pulmonary considering extubation. However patient failed PSV trials. 01/23/2021. Pulmonary had a long discussion with family regarding tracheostomy and vent weaning. Patient continued on mechanical ventilation. Continue Keppra/AEDs. No new seizure activity 01/24/2021. Patient remains on mechanical ventilation with PSV/CPAP mode, FiO2 35%, CPAP 6, pressure support 15. Pulmonary consult surgery for tracheostomy. Continue Keppra and seizure precautions. Patient currently with A. fib but rate controlled. Consult cardiology for further evaluation The high probability of a clinically significant, sudden or life threatening deterioration of the [respiratory, neurological] system(s) required my full and direct attention, intervention and personal management. The aggregate critical care time was [32] minutes. This time is in addition to time spent performing reported procedures but includes the following: [x] Data Review and interpretation [x] Patient assessment and monitoring of vital signs [x] Documentation [x] Medication orders and management History Interval history: No new issues Hospitalist Physical - Constitutional Vitals: Temp Pulse Resp BP Pulse Ox 98.6 F 104 H 15 95/48 100 01/24/21 09:20 01/24/21 09:40 01/24/21 09:40 01/24/21 09:56 01/24/21 09:40 General appearance: Present: no acute distress - EENT Eyes: Present: PERRL, EOM intact ENT: hearing intact, clear oral mucosa, dentition normal - Neck Neck: Present: supple, normal ROM - Respiratory Respiratory effort: normal Respiratory: bilateral: CTA - Cardiovascular Rhythm: regular Heart Sounds: Present: S1 & S2. Absent: gallop, rub - Extremities Extremities: no ischemia, No edema, Full ROM - Abdominal General gastrointestinal: soft, non-tender, non-distended, normal bowel sounds - Integumentary Integumentary: Present: clear, warm, dry - Neurologic Neurologic: CNII-XII intact, moves all extremities Results - Labs CBC & Chem 7: 01/23/21 04:41 01/23/21 04:41 Labs: Laboratory Last Values WBC 18.5 K/mm3 (4.5-11.0) H 01/23/21 04:41 RBC 3.43 M/mm3 (3.65-5.03) L 01/23/21 04:41 Hgb 9.0 gm/dl (11.8-15.2) L 01/23/21 04:41 Hct 28.1 % (35.5-45.6) L 01/23/21 04:41 MCV 82 fl (84-94) L 01/23/21 04:41 MCH 26 pg (28-32) L 01/23/21 04:41 MCHC 32 % (32-34) 01/23/21 04:41 RDW 21.6 % (13.2-15.2) H 01/23/21 04:41 Plt Count 146 K/mm3 (140-440) 01/23/21 04:41 Lymph % (Auto) 6.3 % (13.4-35.0) L 01/15/21 05:22 [place] % (Auto) 5.4 % (0.0-7.3) 01/15/21 05:22 Eos % (Auto) 0.0 % (0.0-4.3) 01/15/21 05:22 Baso % (Auto) 0.1 % (0.0-1.8) 01/15/21 05:22 Lymph # (Auto) 0.7 K/mm3 (1.2-5.4) L 01/15/21 05:22 [place] # (Auto) 0.6 K/mm3 (0.0-0.8) 01/15/21 05:22 Eos # (Auto) 0.0 K/mm3 (0.0-0.4) 01/15/21 05:22 Baso # (Auto) 0.0 K/mm3 (0.0-0.1) 01/15/21 05:22 Seg Neutrophils % 88.2 % (40.0-70.0) H 01/15/21 05:22 Seg Neutrophils # 9.8 K/mm3 (1.8-7.7) H 01/15/21 05:22 PT 15.2 Sec. (12.2-14.9) H 01/22/21 04:20 INR 1.15 (0.87-1.13) H 01/22/21 04:20 ABG pH 7.410 pH Units (7.350-7.450) 01/22/21 04:00 POC ABG pCO2 33.2 mmHg (32.0-48.0) 01/20/21 04:00 ABG pCO2 39.5 mm Hg 01/22/21 04:00 POC ABG pO2 97.9 mmHg (83-108) 01/20/21 04:00 ABG pO2 118.8 mm Hg (80.0-90.0) H 01/22/21 04:00 POC ABG HCO3 26.1 01/20/21 04:00 ABG HCO3 24.5 mmol/L (20.0-26.0) 01/22/21 04:00 ABG O2 Saturation 98.3 % (95.0-99.0) 01/22/21 04:00 ABG O2 Content 13.2 (0.0-44) 01/22/21 04:00 POC ABG Base Excess 3.2 01/20/21 04:00 ABG Base Excess -0.1 mmol/L (-2.0-3.0) 01/22/21 04:00 ABG Hemoglobin 9.6 gm/dl (14.0-18.0) L 01/22/21 04:00 ABG Oxyhemoglobin 96.4 (94-98) 01/20/21 04:00 ABG Carboxyhemoglobin 1.5 % (0.0-5.0) 01/22/21 04:00 ABG Methemoglobin 0.3 % (0.0-1.5) 01/22/21 04:00 ABG Sodium 129.4 mmol/L (136.0-145.0) L 01/20/21 04:00 ABG Potassium 3.6 mmol/L (3.40-4.50) 01/20/21 04:00 ABG Chloride 100.0 mmol/L (98-107) 01/20/21 04:00 ABG Glucose 196 mg/dL (65-95) H 01/20/21 04:00 Oxyhemoglobin 96.5 % (95.0-99.0) 01/22/21 04:00 Carboxyhemoglobin 1.4 (0.5-1.5) 01/20/21 04:00 FiO2 35 % 01/22/21 04:00 FiO2 % 45.0 01/20/21 04:00 Sodium 135 mmol/L (137-145) L 01/23/21 04:41 Potassium 4.0 mmol/L (3.6-5.0) 01/23/21 04:41 Chloride 98.3 mmol/L (98-107) 01/23/21 04:41 Carbon Dioxide 23 mmol/L (22-30) 01/23/21 04:41 Anion Gap 18 mmol/L 01/23/21 04:41 BUN 53 mg/dL (9-20) H 01/23/21 04:41 Creatinine 3.1 mg/dL (0.8-1.3) H 01/23/21 04:41 Estimated GFR 23 ml/min 01/23/21 04:41 BUN/Creatinine Ratio 17 % 01/23/21 04:41 Glucose 187 mg/dL (75-100) H 01/23/21 04:41 POC Glucose 298 mg/dL (70-105) H 01/24/21 05:27 Calcium 8.6 mg/dL (8.4-10.2) 01/23/21 04:41 Phosphorus 3.70 mg/dL (2.5-4.5) D 01/22/21 04:20 Magnesium 2.00 mg/dL (1.7-2.3) 01/22/21 04:20 Total Bilirubin 0.20 mg/dL (0.1-1.2) 01/22/21 04:20 Direct Bilirubin < 0.2 mg/dL (0-0.2) 01/12/21 14:36 Indirect Bilirubin 0.1 mg/dL 01/12/21 14:36 AST 37 units/L (5-40) 01/22/21 04:20 ALT 23 units/L (7-56) 01/22/21 04:20 Alkaline Phosphatase 108 units/L (35-129) 01/22/21 04:20 Ammonia 19.0 umol/L (25-60) L 01/22/21 04:20 Total Protein 5.2 g/dL (6.3-8.2) L 01/22/21 04:20 Albumin 1.9 g/dL (3.9-5) L 01/22/21 04:20 Albumin/Globulin Ratio 0.6 % 01/22/21 04:20 TSH 4.730 mlU/mL (0.270-4.200) H 01/22/21 04:20 Arterial Blood Glucose 196 mg/dL (65-95) H 01/20/21 04:00 Arterial Blood Ionized Calcium 4.6 mg/dL (4.6-5.3) 01/20/21 04:00 Nasal Screen MRSA (PCR) Positive (Negative) 01/13/21 Unknown Urine Opiates Screen Negative 01/18/21 14:25 Urine Methadone Screen Negative 01/18/21 14:25 Ur Barbiturates Screen Negative 01/18/21 14:25 Phenytoin 6.5 ug/mL (10.0-20.0) L 01/16/21 09:15 Valproic Acid 48.4 ug/mL (50-100) L 01/20/21 14:49 Ur Phencyclidine Scrn Negative 01/18/21 14:25 Ur Amphetamines Screen Negative 01/18/21 14:25 U Benzodiazepines Scrn Presumptive positive 01/18/21 14:25 Urine Cocaine Screen Negative 01/18/21 14:25 U Marijuana (THC) Screen Negative 01/18/21 14:25 Drugs of Abuse Note Disclamer 01/18/21 14:25 Coronavirus (PCR) Negative (Negative) 01/15/21 08:00 Hepatitis A IgM Ab Non-reactive (NonReactive) 01/15/21 09:15 Hep Bs Antigen Non-reactive (Negative) 01/15/21 09:15 Hep B Core IgM Ab Non-reactive (NonReactive) 01/15/21 09:15 Hepatitis C Antibody Non-reactive (NonReactive) 01/15/21 09:15 [place]/IV: Voiding Method Incontinent Active Medications - Current Medications Current Medications: Generic Name Dose Route Start Last Admin Trade Name Freq PRN Reason Stop Dose Admin Acetaminophen 650 mg 01/12/21 19:30 Acetaminophen 325 Mg Tab PO Q4H PRN Pain MILD(1-3)/Fever >100.5/ABEL Albuterol 2.5 mg 01/12/21 19:30 Albuterol 2.5 Mg/3 Ml Nebu IH Q4HRT PRN Shortness Of Breath Lipase/Protease/Amylase 1 each 01/13/21 10:11 Lipase 10,500/Protease 25,000/Amylase 43,750 (Units) Dr Silveira FEEDTUBE PRN PRN For Clogged Feeding Tube Atorvastatin Calcium 40 mg 01/12/21 22:00 01/23/21 21:35 Atorvastatin 40 Mg Tab PO 40 mg QHS NOLAN Administration Calcitriol 1 mcg 01/13/21 10:00 01/24/21 09:56 Calcitriol 0.5 Mcg Cap PO 1 mcg QDAY NOLAN Administration Docusate Sodium 100 mg 01/17/21 09:00 Docusate Sodium 100 Mg/10 Ml Oral Liqd PO BID PRN Constipation Doxazosin Mesylate 2 mg 01/18/21 10:00 01/24/21 09:56 Doxazosin 1 Mg Tab PO Not Given QDAY NOLAN Hydrophilic Ointment 1 applic 01/15/21 17:14 Lip Therapy Vaseline TP Q2HR PRN Dry Lips Sodium Chloride 100 mls @ 999 mls/hr 01/15/21 08:00 Nacl 0.9% IV DIONNA PRN Hypotension Insulin Human Lispro 0 unit 01/16/21 00:00 01/24/21 05:46 Insulin Lispro 100 Unit/Ml SUB-Q 6 unit Q6HR NOLAN Administration Protocol Lansoprazole 30 mg 01/12/21 22:00 01/24/21 09:56 Lansoprazole 30 Mg Solutab FEEDTUBE 30 mg BID NOLAN Administration Levetiracetam 250 mg 01/23/21 22:00 01/23/21 21:36 Levetiracetam 500 Mg/5 Ml Oral Liqd PO 250 mg QHS NOLAN Administration Linagliptin 5 mg 01/13/21 11:00 01/24/21 09:56 Linagliptin 5 Mg Tab PO 5 mg QDDIAB NOLAN Administration Multi-Ingred Cream/Lotion/Oil/Oint 1 applic 01/15/21 17:14 Mineral Oil/Petrolatum, White Ophth Oint 3.5 Gm OU Q4HR PRN Dry Eye(s) Ondansetron HCl 4 mg 01/12/21 19:30 Ondansetron 4 Mg/2 Ml Inj IV Q8H PRN Nausea And Vomiting Simple Syrup 15 ml 01/13/21 10:11 01/18/21 06:54 Simple Syrup 15 Ml FEEDTUBE 15 ml PRN PRN Administration Hypoglycemia Simple Syrup 30 ml 01/13/21 10:11 Simple Syrup 15 Ml FEEDTUBE PRN PRN Hypoglycemia Sodium Bicarbonate 325 mg 01/13/21 10:11 Sodium Bicarbonate 325 Mg Tab FEEDTUBE PRN PRN For Clogged Feeding Tube Sodium Chloride 10 ml 01/12/21 22:00 01/24/21 09:57 Sodium Chloride 0.9% 10 Ml Flush Syringe IV 10 ml BID NOLAN Administration Timolol Maleate 1 drops 01/17/21 10:00 01/24/21 09:56 Timolol 0.5% Ophth Soln 5 Ml OU 1 drops QDAY NOLAN Administration Nutrition/Malnutrition Assess - Dietary Evaluation Nutrition/Malnutrition Findings: Nutrition Notes Start: 01/13/21 10:03 Freq: Status: Active Protocol: Document 01/23/21 14:52 NANCY (Rec: 01/23/21 14:58 [facility] [id number]) Nutrition Notes Initial or Follow up Reassessment Current Diagnosis CKD (stage V CKD),Diabetes, Hypertension Other Pertinent Diagnosis Chronic seizure d/o Current Diet TF - Osmolite 1.5 at 50ml/hr Labs/Tests BUN 53 Cr 3.1 Na 135 Phos 3.7 (01/22) BG 187 POC Glu range on 01/21: 134-203 POC Glu range on 01/22: 151-295 Pertinent Medications Humalog Height 5 ft 9 in Weight 56.1 kg [place]gas Body Weight (kg) 72.72 BMI 18.2 Weight Status Underweight Subjective/Other Information Pt remains on vent support. Per RN, pt tolerating TF at goal rate. Percent of energy/protein needs met: 100% energy and pro Burn Absent Trauma Absent #2 Nutrition Diagnosis Increased nutrient needs ( specify in comment below) Diagnosis Progress(for reassessment Continues documentation) #1 Nutrition Diagnosis Inadequate oral intake Diagnosis Progress(for reassessment Continues documentation) Is patient on ventilator? Yes Is Patient Ambulatory and/or Out of Bed No REE-([place]-[facility]. Jeor-confined to bed) 1508.844 Kcal/Kg value to use for calculation 35 Approximate Energy Requirements Using 1964 kcal/Kg Calculation Used for Recommendations Kcal/kg Additional Notes Pro needs >1.2g/kg: >67g/day Fluid needs 1-1.5L/day Nutrition Intervention Nutrition Support: Continue Osmolite 1.5 at 50ml/ hr with 150ml water flush q4h. Provides 2200mg K, 1200mg Phos , 1680mg Na. Kcal 1,800 Protein (gm) 75 Carbohydrates (gm) 244 Fat (gm) 59 Fluid (mL) 914 Fiber (gm) 0 Goal #1 TF tolerance Goal #2 TF to meet 100% energy and pro needs Goal #3 Wt maintenance and/or gain Follow-Up By: 01/29/21 Additional Comments F/U: stable TF, BG labs, vent status
--- NOTE | 2021-01-24 12:23 | Electrocardiograph Report ---
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
--- NOTE | 2021-01-24 15:06 | Consultation ---
History of Present Illness Consult date: 01/24/21 - History of present illness History of present illness: General surgery consulted for 80-year-old male who presented several weeks ago with altered mental status and seizure activity. Patient has had prolonged intubation and unable to wean from ventilator. Consult is for evaluation for tracheostomy placement. Past History Past Medical History: dialysis, ESRD, hypertension, hyperlipidemia, other (See HPI) Past Surgical History: Other (Dialysis access) Social history: . denies: smoking, alcohol abuse Family history: diabetes, hypertension Medications and Allergies Allergies Allergy/AdvReac Type Severity Reaction Status Date / Time No Known Allergies Allergy Verified 08/14/19 16:11 Home Medications Medication Instructions Recorded Confirmed Last Taken Type Alogliptin Benzoate [Alogliptin] 1 tab PO DAILY 10/02/20 01/23/21 Unknown Hist ory AtorvaSTATin [Lipitor] 40 mg PO QHS #30 10/11/20 01/23/21 Unknown Rx Doxazosin [Cardura] 4 mg PO QDAY #30 10/11/20 01/23/21 Unknown Rx Febuxostat 40 mg PO QDAY #30 10/11/20 01/23/21 Unknown Rx Ketotifen Fumarate 1 drop OU QDAY #1 bottle 10/11/20 01/23/21 Unknown Rx Lansoprazole Solutab [Prevacid 30 mg FEEDTUBE BID #60 tab.rapdis 10/11/20 01/23/21 Unknown Rx Solutab] Megestrol Acetate 40 mg PO QDAY #30 10/11/20 01/23/21 Unknown Rx Metoprolol [Lopressor TAB] 12.5 mg PO BID #60 tablet 10/11/20 01/23/21 Unknown Rx calcitrioL [Rocaltrol] 1 mcg PO QDAY #30 cap 10/11/20 01/23/21 Unknown Rx timoloL maleate [Timolol Maleate 1 drop OP BID #1 bottle 10/11/20 01/23/21 Unknown Rx 0.25%] Insulin Lispro [Humalog] 0 units SUB-Q QID 01/23/21 01/23/21 Unknown History Active Meds: Active Medications Acetaminophen (Acetaminophen 325 Mg Tab) 650 mg PO Q4H PRN PRN Reason: Pain MILD(1-3)/Fever >100.5/ABEL Albuterol (Albuterol 2.5 Mg/3 Ml Nebu) 2.5 mg IH Q4HRT PRN PRN Reason: Shortness Of Breath Lipase/Protease/Amylase (Lipase 10,500/Protease 25,000/Amylase 43,750 (Units) Dr Silveira) 1 each FEEDTUBE PRN PRN PRN Reason: For Clogged Feeding Tube Atorvastatin Calcium (Atorvastatin 40 Mg Tab) 40 mg PO QHS [facility] Last Admin: 01/23/21 21:35 Dose: 40 mg Documented by: Calcitriol (Calcitriol 0.5 Mcg Cap) 1 mcg PO QDAY [facility] Last Admin: 01/24/21 09:56 Dose: 1 mcg Documented by: Docusate Sodium (Docusate Sodium 100 Mg/10 Ml Oral Liqd) 100 mg PO BID PRN PRN Reason: Constipation Doxazosin Mesylate (Doxazosin 1 Mg Tab) 2 mg PO QDAY [facility] Last Admin: 01/24/21 09:56 Dose: Not Given Documented by: Hydrophilic Ointment (Lip Therapy Vaseline) 1 applic TP Q2HR PRN PRN Reason: Dry Lips Sodium Chloride (Nacl 0.9%) 100 mls @ 999 mls/hr IV DIONNA PRN PRN Reason: Hypotension Insulin Human Lispro (Insulin Lispro 100 Unit/Ml) 0 unit SUB-Q Q6HR [facility]; Protocol Last Admin: 01/24/21 13:23 Dose: 6 unit Documented by: Lansoprazole (Lansoprazole 30 Mg Solutab) 30 mg FEEDTUBE BID [facility] Last Admin: 01/24/21 09:56 Dose: 30 mg Documented by: Levetiracetam (Levetiracetam 500 Mg/5 Ml Oral Liqd) 250 mg PO QHS [facility] Last Admin: 01/23/21 21:36 Dose: 250 mg Documented by: Linagliptin (Linagliptin 5 Mg Tab) 5 mg PO QDDIAB [facility] Last Admin: 01/24/21 09:56 Dose: 5 mg Documented by: Multi-Ingred Cream/Lotion/Oil/Oint (Mineral Oil/Petrolatum, White Ophth Oint 3.5 Gm) 1 applic OU Q4HR PRN PRN Reason: Dry Eye(s) Ondansetron HCl (Ondansetron 4 Mg/2 Ml Inj) 4 mg IV Q8H PRN PRN Reason: Nausea And Vomiting Simple Syrup (Simple Syrup 15 Ml) 15 ml FEEDTUBE PRN PRN PRN Reason: Hypoglycemia Last Admin: 01/18/21 06:54 Dose: 15 ml Documented by: Simple Syrup (Simple Syrup 15 Ml) 30 ml FEEDTUBE PRN PRN PRN Reason: Hypoglycemia Sodium Bicarbonate (Sodium Bicarbonate 325 Mg Tab) 325 mg FEEDTUBE PRN PRN PRN Reason: For Clogged Feeding Tube Sodium Chloride (Sodium Chloride 0.9% 10 Ml Flush Syringe) 10 ml IV BID [facility] Last Admin: 01/24/21 09:57 Dose: 10 ml Documented by: Timolol Maleate (Timolol 0.5% Ophth Soln 5 Ml) 1 drops OU QDAY [facility] Last Admin: 01/24/21 09:56 Dose: 1 drops Documented by: Review of Systems ROS unobtainable: due to endotracheal tube Exam Vital Signs Pulse Ox 76 L 01/12/21 14:14 - General physical appearance Positive: well developed, no distress, no pain, chronically ill - Neck Positive: no masses, trachea midline, no lymphadectomy - Respiratory Positive: normal expansion, normal respiratory effort - Cardiovascular Heart Sounds: Present: S1 & S2 - Abdomen Abdomen: Present: soft, other (G-tube in place with tube feeds running) - Neurologic Neurologic: other (Patient responds to verbal stimulation, and painful stimulation. No focal movements or cues suggestive of meaningful communication.) Results - Labs 01/23/21 04:41 01/23/21 04:41 Abnormal lab results 01/23/21 01/23/21 01/24/21 Range/Units 17:54 23:15 05:27 POC Glucose 243 H 241 H 298 H (70-105) mg/dL 01/24/21 Range/Units 12:00 POC Glucose 259 H (70-105) mg/dL Assessment and Plan 80-year-old male with respiratory failure vent dependence unable to wean from ventilator. We will talk to family about consent for tracheostomy placement. Overall prognosis is guarded.
--- NOTE | 2021-01-24 15:55 | Consultation ---
History of Present Illness Consult date: 01/24/21 Requesting physician: KWESI DEL CID Consult reason: atrial fibrillation History of present illness: Patient is an 80 y/o male patinet with a PMHx of ESRD, HTN, HLD, vascualr dementia, and cerebral atherosclerosis who presented to the ED on 01/12/2021 for actively seizing while at his routinely scheduled dialysis. Neurology has been following patient for his new onset seizure activity. Patient was intubated on 01/18/2021 for hypoxia and has since failed extubation. Pulmonolgy is considering a tracheostomy for patient. Cardiology has been consulted because patient has been noted to be in Afib. Echo 10/26/2020-EF 55 to 60% normal left ventricle. Right ventricle normal. Left and right atrium are normal mild aortic valve sclerosis mild aortic regurgitation mild mitral regurgitation Past History Past Medical History: dialysis, ESRD, hypertension, hyperlipidemia, other (Vascular dementia) Past Surgical History: Other (Dialysis access) Social history: . denies: smoking, alcohol abuse Family history: diabetes, hypertension Medications and Allergies Allergies Allergy/AdvReac Type Severity Reaction Status Date / Time No Known Allergies Allergy Verified 08/14/19 16:11 Home Medications Medication Instructions Recorded Confirmed Last Taken Type Alogliptin Benzoate [Alogliptin] 1 tab PO DAILY 10/02/20 01/23/21 Unknown History AtorvaSTATin [Lipitor] 40 mg PO QHS #30 10/11/20 01/23/21 Unknown Rx Doxazosin [Cardura] 4 mg PO QDAY #30 10/11/20 01/23/21 Unknown Rx Febuxostat 40 mg PO QDAY #30 10/11/20 01/23/21 Unknown Rx Ketotifen Fumarate 1 drop OU QDAY #1 bottle 10/11/20 01/23/21 Unknown Rx Lansoprazole Solutab [Prevacid 30 mg FEEDTUBE BID #60 tab.rapdis 10/11/20 01/23/21 Unknown Rx Solutab] Megestrol Acetate 40 mg PO QDAY #30 10/11/20 01/23/21 Unknown Rx Metoprolol [Lopressor TAB] 12.5 mg PO BID #60 tablet 10/11/20 01/23/21 Unknown Rx calcitrioL [Rocaltrol] 1 mcg PO QDAY #30 cap 10/11/20 01/23/21 Unknown Rx timoloL maleate [Timolol Maleate 1 drop OP BID #1 bottle 10/11/20 01/23/21 Unknown Rx 0.25%] Insulin Lispro [Humalog] 0 units SUB-Q QID 01/23/21 01/23/21 Unknown History Active Meds: Active Medications Acetaminophen (Acetaminophen 325 Mg Tab) 650 mg PO Q4H PRN PRN Reason: Pain MILD(1-3)/Fever >100.5/ABEL Albuterol (Albuterol 2.5 Mg/3 Ml Nebu) 2.5 mg IH Q4HRT PRN PRN Reason: Shortness Of Breath Lipase/Protease/Amylase (Lipase 10,500/Protease 25,000/Amylase 43,750 (Units) Dr Silveira) 1 each FEEDTUBE PRN PRN PRN Reason: For Clogged Feeding Tube Atorvastatin Calcium (Atorvastatin 40 Mg Tab) 40 mg PO QHS [facility] Last Admin: 01/23/21 21:35 Dose: 40 mg Documented by: Calcitriol (Calcitriol 0.5 Mcg Cap) 1 mcg PO QDAY [facility] Last Admin: 01/24/21 09:56 Dose: 1 mcg Documented by: Docusate Sodium (Docusate Sodium 100 Mg/10 Ml Oral Liqd) 100 mg PO BID PRN PRN Reason: Constipation Doxazosin Mesylate (Doxazosin 1 Mg Tab) 2 mg PO QDAY [facility] Last Admin: 01/24/21 09:56 Dose: Not Given Documented by: Hydrophilic Ointment (Lip Therapy Vaseline) 1 applic TP Q2HR PRN PRN Reason: Dry Lips Sodium Chloride (Nacl 0.9%) 100 mls @ 999 mls/hr IV DIONNA PRN PRN Reason: Hypotension Insulin Human Lispro (Insulin Lispro 100 Unit/Ml) 0 unit SUB-Q Q6HR [facility]; Protocol Last Admin: 01/24/21 13:23 Dose: 6 unit Documented by: Lansoprazole (Lansoprazole 30 Mg Solutab) 30 mg FEEDTUBE BID [facility] Last Admin: 01/24/21 09:56 Dose: 30 mg Documented by: Levetiracetam (Levetiracetam 500 Mg/5 Ml Oral Liqd) 250 mg PO QHS [facility] Last Admin: 01/23/21 21:36 Dose: 250 mg Documented by: Linagliptin (Linagliptin 5 Mg Tab) 5 mg PO QDDIAB [facility] Last Admin: 01/24/21 09:56 Dose: 5 mg Documented by: Multi-Ingred Cream/Lotion/Oil/Oint (Mineral Oil/Petrolatum, White Ophth Oint 3.5 Gm) 1 applic OU Q4HR PRN PRN Reason: Dry Eye(s) Ondansetron HCl (Ondansetron 4 Mg/2 Ml Inj) 4 mg IV Q8H PRN PRN Reason: Nausea And Vomiting Simple Syrup (Simple Syrup 15 Ml) 15 ml FEEDTUBE PRN PRN PRN Reason: Hypoglycemia Last Admin: 01/18/21 06:54 Dose: 15 ml Documented by: Simple Syrup (Simple Syrup 15 Ml) 30 ml FEEDTUBE PRN PRN PRN Reason: Hypoglycemia Sodium Bicarbonate (Sodium Bicarbonate 325 Mg Tab) 325 mg FEEDTUBE PRN PRN PRN Reason: For Clogged Feeding Tube Sodium Chloride (Sodium Chloride 0.9% 10 Ml Flush Syringe) 10 ml IV BID [facility] Last Admin: 01/24/21 09:57 Dose: 10 ml Documented by: Timolol Maleate (Timolol 0.5% Ophth Soln 5 Ml) 1 drops OU QDAY [facility] Last Admin: 01/24/21 09:56 Dose: 1 drops Documented by: Review of Systems ROS unobtainable: due to endotracheal tube Physical Examination Last Vital Signs Temp 98.2 F 01/24/21 12:33 Pulse 100 H 01/24/21 15:20 Resp 20 01/24/21 15:20 BP 114/49 01/24/21 15:20 Pulse Ox 99 01/24/21 15:20 General appearance: no acute distress HEENT: Positive: Mucus Membranes Dry Neck: Positive: trachea midline Cardiac: Positive: Reg Rate and Rhythm Lungs: Positive: Ventilated Respirations Neuro: Positive: Other (unable to assess) Abdomen: Positive: Soft, Active Bowel Sounds Extremities: Present: normal, upper extr. pulses, lower extr. pulses, +1 Edema Results 01/23/21 04:41 01/23/21 04:41 - Imaging and Cardiology Echo: report reviewed EKG: report reviewed, image reviewed EKG interpretations - Telemetry EKG Rhythm: Sinus Rhythm - EKG Sinus rhythms and dysrhythmias: sinus tachycardia Supraventricular dysrhythmia: atrial premature complexe Assessment and Plan Sinus tachycardia with APC * Echo 10/26/2020-EF 55 to 60% normal left ventricle. Right ventricle normal. Left and right atrium are normal mild aortic valve sclerosis mild aortic regurgitation mild mitral regurgitation * EKG and monitor showed normal sinus tachycardia with APC * May consider metoprolol for rate control once patient more hemodynamically stable Vascular Dementia * Recommend initiating Aspirin 81mg PO QD * Continue atorvastain 40mg PO QHS HTN * Optimize hypertensive regimen. Patient BP noted to be low hold Doxazosin 2mg PO QD Patient seen in conjunction with Dr. Leach who agrees to this plan of care. We will continue to follow - Patient Problems (1) Cerebral atherosclerosis Current Visit: Yes Status: Acute (2) End stage renal disease Current Visit: Yes Status: Acute (3) New onset seizure Current Visit: Yes Status: Acute (4) Vascular dementia Current Visit: Yes Status: Acute Qualifiers: Dementia behavioral disturbance: without behavioral disturbance Qualified Code(s): F01.50 - Vascular dementia without behavioral disturbance (5) Hyperlipidemia Current Visit: No Status: Chronic Qualifiers: Hyperlipidemia type: mixed hyperlipidemia Qualified Code(s): E78.2 - Mixed hyperlipidemia (6) Hypertension Current Visit: No Status: Chronic Qualifiers: Hypertension type: essential hypertension Qualified Code(s): I10 - Essential (primary) hypertension
[2021-01-24] MEDS: levETIRAcetam 500 MG/5 ML ORAL LIQD PO SCH (21:23)
[2021-01-24] MEDS: SODIUM BICARBONATE 325 MG TAB FEEDTUBE PRN (21:24)
--- NOTE | 2021-01-24 22:01 | XRay Report ---
ABDOMEN 2 VIEWS INDICATION / CLINICAL INFORMATION: vomiting. COMPARISON: 10/25/2020 FINDINGS: TUBES / LINES: There is a PEG tube overlying the patient's left upper quadrant. BOWEL GAS PATTERN: There is a large amount of stool retention throughout the colon, otherwise no sign ificant bowel gas abnormality. FREE AIR / EXTRALUMINAL GAS: None seen. ADDITIONAL FINDINGS: Costochondral calcifications are noted overlying the left upper quadrant. CHEST: Visualized chest shows no significant abnormality. IMPRESSION: 1. Large stool retention throughout the colon. Nonobstructive bowel gas pattern. Signer Name: Ebenezer Denney DO Signed: 01/24/2021 9:57 PM Workstation Name: [id number]
[2021-01-25] MEDS: INSULIN LISPRO 100 UNIT/ML SUB-Q SCH ×4 (05:13→18:21)
--- NOTE | 2021-01-25 08:38 | Progress Note ---
Assessment and Plan 1.ESRD: Patient is on maintenance hemodialysis three times a week, TTS schedule. Last outpatient HD 01/12/2021. Meds dosage based on GFR. Hemodialysis: 01/15, 01/16, 01/17(UF), 01/18, 01/22, 01/24. 2. FEN: Volume overload, UF with HD. Hyponatremia, improved, monitor. Replete Phos. Monitor lytes and volume status. 3. Acute resp failure: Currently intubated, on vent. Extubated 01/17. Re-intubated 01/17. Wean as tolerated. 4. Shock: Off pressors. Monitor. 5. New onset of possible witnessed seizure during dialysis: CT brain remarkable for white matter changes. MRI brain: small SDH, chronic changes. On Keppra. Seizure precaution. Seen by Neuro. 6. Advanced dementia: CT white matter changes. 7. Failure to thrive: PEG tube. 8. Anemia, POA: Epogen with HD. 9. DM type 2. 10. Acute metabolic encephalopathy: Followed by Neuro. Subjective: Patient was seen and examined at the bedside. Examination: General appearance: well-developed, appears stated age, no distress, intubated, on vent, FiO2 25% HEENT: ATNC, pupils equal Neck: Trachea midline Respiratory: ctab Cardiology: regular, S1S2, no murmur Abdomen: soft, not tender, BS heard, Peg tube noted Integumentary: warm, dry, no obvious rash Neurologic: not responding Ext: trace dependent edema noted Hemodialysis catheter: R IJ tunnel catheter Subjective Date of service: 01/25/21 Principal diagnosis: witnessed seizure hx of ESRD ,hyponatremia Objective - Vital Signs Vital signs: Vital Signs - 12hr 01/24/21 01/24/21 01/24/21 20:38 20:40 20:50 Temperature Pulse Rate 82 87 79 Pulse Rate [ From Monitor] Respiratory 18 19 Rate Blood Pressure 136/54 136/54 136/54 O2 Sat by Pulse 100 100 99 Oximetry 01/24/21 01/24/21 01/24/21 21:00 21:10 21:20 Temperature Pulse Rate 108 H 103 H 74 Pulse Rate [ From Monitor] Respiratory 11 L 16 13 Rate Blood Pressure 135/60 135/60 135/60 O2 Sat by Pulse 98 99 99 Oximetry 01/24/21 01/24/21 01/24/21 21:30 21:40 21:50 Temperature Pulse Rate 81 105 H 106 H Pulse Rate [ From Monitor] Respiratory 18 20 22 Rate Blood Pressure 133/59 133/59 133/59 O2 Sat by Pulse 97 98 99 Oximetry 01/24/21 01/24/21 01/24/21 22:00 22:10 22:20 Temperature Pulse Rate 109 H 106 H 109 H Pulse Rate [ From Monitor] Respiratory 24 14 11 L Rate Blood Pressure 93/47 93/47 93/47 O2 Sat by Pulse 100 100 100 Oximetry 01/24/21 01/24/21 01/24/21 22:30 22:40 22:50 Temperature Pulse Rate 104 H 110 H 105 H Pulse Rate [ From Monitor] Respiratory 13 21 22 Rate Blood Pressure 85/44 109/55 109/55 O2 Sat by Pulse 99 98 100 Oximetry 01/24/21 01/24/21 01/24/21 23:00 23:10 23:20 Temperature Pulse Rate 101 H 104 H 105 H Pulse Rate [ From Monitor] Respiratory 21 14 12 Rate Blood Pressure 97/49 97/49 97/49 O2 Sat by Pulse 100 100 100 Oximetry 01/24/21 01/24/21 01/24/21 23:30 23:40 23:50 Temperature Pulse Rate 104 H 104 H 103 H Pulse Rate [ From Monitor] Respiratory 13 18 20 Rate Blood Pressure 93/48 93/48 93/48 O2 Sat by Pulse 98 99 99 Oximetry 01/24/21 01/25/21 01/25/21 23:55 00:00 00:10 Temperature 100.3 F H Pulse Rate 102 H 103 H Pulse Rate [ 102 H From Monitor] Respiratory 16 21 Rate Blood Pressure 98/49 98/49 O2 Sat by Pulse 99 100 Oximetry 01/25/21 01/25/21 01/25/21 00:20 00:30 00:40 Temperature Pulse Rate 102 H 98 H 99 H Pulse Rate [ From Monitor] Respiratory 19 15 17 Rate Blood Pressure 98/49 96/48 96/48 O2 Sat by Pulse 100 100 100 Oximetry 01/25/21 01/25/21 01/25/21 00:50 01:00 01:10 Temperature Pulse Rate 101 H 101 H 87 Pulse Rate [ From Monitor] Respiratory 20 17 18 Rate Blood Pressure 96/48 98/52 98/52 O2 Sat by Pulse 100 98 99 Oximetry 01/25/21 01/25/21 01/25/21 01:14 01:20 01:30 Temperature Pulse Rate 97 H 101 H 101 H Pulse Rate [ From Monitor] Respiratory 19 18 Rate Blood Pressure 98/52 98/52 89/50 O2 Sat by Pulse 99 99 96 Oximetry 01/25/21 01/25/21 01/25/21 01:40 01:50 02:00 Temperature Pulse Rate 102 H 97 H 101 H Pulse Rate [ From Monitor] Respiratory 21 13 19 Rate Blood Pressure 89/50 89/50 92/47 O2 Sat by Pulse 98 97 95 Oximetry 01/25/21 01/25/21 01/25/21 02:10 02:20 02:30 Temperature Pulse Rate 100 H 100 H 101 H Pulse Rate [ From Monitor] Respiratory 18 21 12 Rate Blood Pressure 92/47 92/47 97/48 O2 Sat by Pulse 96 97 97 Oximetry 01/25/21 01/25/21 01/25/21 02:40 02:50 03:00 Temperature Pulse Rate 99 H 99 H 98 H Pulse Rate [ From Monitor] Respiratory 12 18 17 Rate Blood Pressure 97/48 97/48 85/41 O2 Sat by Pulse 96 97 97 Oximetry 01/25/21 01/25/21 01/25/21 03:09 03:10 03:20 Temperature 98.9 F Pulse Rate 101 H 102 H Pulse Rate [ From Monitor] Respiratory 22 16 Rate Blood Pressure 85/41 85/41 O2 Sat by Pulse 97 96 Oximetry 01/25/21 01/25/21 01/25/21 03:30 03:40 03:50 Temperature Pulse Rate 100 H 103 H 96 H Pulse Rate [ From Monitor] Respiratory 15 21 18 Rate Blood Pressure 92/46 92/46 92/46 O2 Sat by Pulse 96 85 100 Oximetry 01/25/21 01/25/21 01/25/21 04:00 04:10 04:20 Temperature Pulse Rate 99 H 99 H 98 H Pulse Rate [ 91 H From Monitor] Respiratory 14 15 12 Rate Blood Pressure 102/51 102/51 102/51 O2 Sat by Pulse 99 99 99 Oximetry 01/25/21 01/25/21 01/25/21 04:30 04:40 04:50 Temperature Pulse Rate 96 H 98 H 96 H Pulse Rate [ From Monitor] Respiratory 14 15 16 Rate Blood Pressure 101/48 102/51 102/51 O2 Sat by Pulse 97 98 97 Oximetry 01/25/21 01/25/21 01/25/21 05:00 05:10 05:20 Temperature Pulse Rate 95 H 94 H 92 H Pulse Rate [ From Monitor] Respiratory 15 16 14 Rate Blood Pressure 92/44 101/48 101/48 O2 Sat by Pulse 96 98 100 Oximetry 01/25/21 01/25/21 01/25/21 05:30 05:40 05:50 Temperature Pulse Rate 94 H 94 H 91 H Pulse Rate [ From Monitor] Respiratory 17 17 19 Rate Blood Pressure 91/48 91/48 91/48 O2 Sat by Pulse 96 96 Oximetry 01/25/21 01/25/21 01/25/21 06:00 06:10 06:20 Temperature Pulse Rate 94 H 93 H 95 H Pulse Rate [ From Monitor] Respiratory 16 17 12 Rate Blood Pressure 91/48 92/48 92/48 O2 Sat by Pulse 97 96 97 Oximetry 01/25/21 01/25/21 01/25/21 06:30 06:40 07:24 Temperature Pulse Rate 94 H 93 H 96 H Pulse Rate [ From Monitor] Respiratory 14 17 Rate Blood Pressure 98/50 98/50 93/47 O2 Sat by Pulse 97 96 97 Oximetry 01/25/21 07:32 Temperature 99.6 F Pulse Rate Pulse Rate [ From Monitor] Respiratory Rate Blood Pressure O2 Sat by Pulse Oximetry - Lab 01/23/21 04:41 01/23/21 04:41 Most recent lab results ABG pH 7.410 pH Units (7.350-7.450) 01/22/21 04:00 ABG pCO2 39.5 mm Hg 01/22/21 04:00 ABG pO2 118.8 mm Hg (80.0-90.0) H 01/22/21 04:00 ABG HCO3 24.5 mmol/L (20.0-26.0) 01/22/21 04:00 ABG O2 Saturation 98.3 % (95.0-99.0) 01/22/21 04:00 Calcium 8.6 mg/dL (8.4-10.2) 01/23/21 04:41 Phosphorus 2.20 mg/dL (2.5-4.5) L 01/25/21 06:02 Magnesium 2.00 mg/dL (1.7-2.3) 01/22/21 04:20 Medications & Allergies - Medications Allergies/Adverse Reactions: Allergies No Known Allergies Allergy (Verified 08/14/19 16:11) Home Medications: Home Medications Medication Instructions Recorded Confirmed Last Taken Type Alogliptin Benzoate [Alogliptin] 1 tab PO DAILY 10/02/20 01/23/21 Unknown History AtorvaSTATin [Lipitor] 40 mg PO QHS #30 10/11/20 01/23/21 Unknown Rx Doxazosin [Cardura] 4 mg PO QDAY #30 10/11/20 01/23/21 Unknown Rx Febuxostat 40 mg PO QDAY #30 10/11/20 01/23/21 Unknown Rx Ketotifen Fumarate 1 drop OU QDAY #1 bottle 10/11/20 01/23/21 Unknown Rx Lansoprazole Solutab [Prevacid 30 mg FEEDTUBE BID #60 tab.rapdis 10/11/20 01/23/21 Unknown Rx Solutab] Megestrol Acetate 40 mg PO QDAY #30 10/11/20 01/23/21 Unknown Rx Metoprolol [Lopressor TAB] 12.5 mg PO BID #60 tablet 10/11/20 01/23/21 Unknown Rx calcitrioL [Rocaltrol] 1 mcg PO QDAY #30 cap 10/11/20 01/23/21 Unknown Rx timoloL maleate [Timolol Maleate 1 drop OP BID #1 bottle 10/11/20 01/23/21 Unknown Rx 0.25%] Insulin Lispro [Humalog] 0 units SUB-Q QID 01/23/21 01/23/21 Unknown History Active Medications: Generic Name Dose Route Start Last Admin Trade Name Freq PRN Reason Stop Dose Admin Acetaminophen 650 mg 01/12/21 19:30 Acetaminophen 325 Mg Tab PO Q4H PRN Pain MILD(1-3)/Fever >100.5/ABEL Albuterol 2.5 mg 01/12/21 19:30 Albuterol 2.5 Mg/3 Ml Nebu IH Q4HRT PRN Shortness Of Breath Lipase/Protease/Amylase 1 each 01/13/21 10:11 Lipase 10,500/Protease 25,000/Amylase 43,750 (Units) Dr Silveira FEEDTUBE PRN PRN For Clogged Feeding Tube Atorvastatin Calcium 40 mg 01/12/21 22:00 01/24/21 21:24 Atorvastatin 40 Mg Tab PO 40 mg QHS [facility] Administration Calcitriol 1 mcg 01/13/21 10:00 01/24/21 09:56 Calcitriol 0.5 Mcg Cap PO 1 mcg QDAY [facility] Administration Docusate Sodium 100 mg 01/17/21 09:00 Docusate Sodium 100 Mg/10 Ml Oral Liqd PO BID PRN Constipation Doxazosin Mesylate 2 mg 01/18/21 10:00 01/24/21 09:56 Doxazosin 1 Mg Tab PO Not Given QDAY [facility] Hydrophilic Ointment 1 applic 01/15/21 17:14 Lip Therapy Vaseline TP Q2HR PRN Dry Lips Sodium Chloride 100 mls @ 999 mls/hr 01/15/21 08:00 Nacl 0.9% IV DIONNA PRN Hypotension Insulin Glargine 5 units 01/25/21 22:00 Insulin Glargine 100 Units/Ml SUB-Q QHS [facility] Insulin Human Lispro 0 unit 01/16/21 00:00 01/25/21 05:13 Insulin Lispro 100 Unit/Ml SUB-Q Not Given Q6HR [facility] Protocol Lansoprazole 30 mg 01/12/21 22:00 01/24/21 21:24 Lansoprazole 30 Mg Solutab FEEDTUBE 30 mg BID [facility] Administration Levetiracetam 250 mg 01/23/21 22:00 01/24/21 21:23 Levetiracetam 500 Mg/5 Ml Oral Liqd PO 250 mg QHS [facility] Administration Linagliptin 5 mg 01/13/21 11:00 01/24/21 09:56 Linagliptin 5 Mg Tab PO 5 mg QDDIAB [facility] Administration Multi-Ingred Cream/Lotion/Oil/Oint 1 applic 01/15/21 17:14 Mineral Oil/Petrolatum, White Ophth Oint 3.5 Gm OU Q4HR PRN Dry Eye(s) Ondansetron HCl 4 mg 01/12/21 19:30 01/24/21 21:24 Ondansetron 4 Mg/2 Ml Inj IV 4 mg Q8H PRN Administration Nausea And Vomiting Potassium Phos/Sodium Phos 1 each 01/25/21 09:00 Phos-Nak Powder Packet PO Q8HR [facility] Senna 2 mg 01/25/21 09:00 Sennosides 8.6 Mg Tab PO Q8H [facility] Simple Syrup 15 ml 01/13/21 10:11 01/18/21 06:54 Simple Syrup 15 Ml FEEDTUBE 15 ml PRN PRN Administration Hypoglycemia Simple Syrup 30 ml 01/13/21 10:11 Simple Syrup 15 Ml FEEDTUBE PRN PRN Hypoglycemia Sodium Bicarbonate 325 mg 01/13/21 10:11 01/24/21 21:24 Sodium Bicarbonate 325 Mg Tab FEEDTUBE 325 mg PRN PRN Administration For Clogged Feeding Tube Sodium Chloride 10 ml 01/12/21 22:00 01/24/21 22:13 Sodium Chloride 0.9% 10 Ml Flush Syringe IV 10 ml BID [facility] Administration Timolol Maleate 1 drops 01/17/21 10:00 01/24/21 09:56 Timolol 0.5% Ophth Soln 5 Ml OU 1 drops QDAY [facility] Administration
[2021-01-25] MEDS ORDERED: SENNOSIDES 8.6 MG TAB PO SCH (09:00)
[2021-01-25] MEDS: DOXAZOSIN 1 MG TAB PO SCH (09:37)
[2021-01-25] MEDS: CALCITRIOL 0.5 MCG CAP PO SCH (09:37)
[2021-01-25] MEDS: SENNOSIDES 8.6 MG TAB PO SCH ×2 (09:37→18:15)
[2021-01-25] MEDS: PHOS-NAK POWDER PACKET PO SCH ×3 (09:37→21:48)
[2021-01-25] MEDS: LANSOPRAZOLE 30 MG SOLUTAB FEEDTUBE SCH ×2 (09:38→21:48)
[2021-01-25] MEDS: LINAGLIPTIN 5 MG TAB PO SCH (09:38)
[2021-01-25] MEDS: TIMOLOL 0.5% OPHTH SOLN 5 ML OU SCH (09:39)
--- NOTE | 2021-01-25 11:15 | Progress Note ---
Assessment and Plan 80 y/o with chronic seizure disorder, ESRD, HTN admitted with status epilepticus, requiring intubation for burst suppression. 01/25/21: Appreciate surgery eval on yesterday. Await anesthesia eval and discussion with family. Will restart tube feeds, add bowel regimen and give laxative today. Failed PSV again today as he was having periods of apnea. Guarded to poor prognosis. 01/24/21: Consult Dr. Guerrero for trach, patient already has peg. Continue supportive measures. Guarded to poor prognosis. 01/23/21: Long discussion with family over the phone at bedside. They had several questions about trach and weaning. Answered all questions as best as possible. Family going to discuss again today and will let us known tomorrow. Continue supportive measures. Guarded to poor prognosis. 01/22/21: Will discuss on rounds today the possibility of cutting back more on anti-epileptic meds to see if this helps with his mental state. Will reach out to family today to discuss next options and goals of care. He is currently not a candidate for extubation and may need trach and peg. Will call with CM. Continue daily PSV trials. 01/21/21: FiO2 now down to 30%. RT to attempt PSV today to see how patient tolerates. Not a candidate for extubation given his current mental state. Neuro did decrease meds more on yesterday Keppra daily and BID Valproic Acid. Will call family to update on current level of care. Overall prognosis remains guarded to poor. Will get Head CT today to rule out any new areas of ischemia or bleeding. 01/20/21: FiO2 stable on 45%. Hold on repeat Imaging for now. Will hold on Flumazenil therapy given his prior history of seizure. May need more HD tomorrow. Spoke with Daughter and over the phone to update and they asked me to call them again tomorrow. Will tell them that visiting hours are present if they choose to come. Guarded prognosis. 01/19/21: Dropped FiO2 to 45%. Await neurology eval today but need to consider repeat imaging of head as I have not explanation as to why patient is not responsive. Patient does not make any urine so not able to send UDS. Had HD on yesterday so next one would likely be Thursday. Renal to address electrolytes. Very very guarded prognosis. 01/18/21: EEG not officially read, but prelim is negative for seizures, just diffuse slowing. ABG is stable, not hypercapnic. Will send UDS to see if benzos are still in system. spoke with renal who will do HD today and manage electrolytes. DId order mag level given low levels of potassium. Overall prognosis is very guarded to poor. If not more responsive tomorrow, may need to consider repeat imaging of head/brain. 01/17/21: Extubate. HD today per renal. If tolerates both, transfer back to floor on new anti-epileptic regimen 1. Continue Versed at 3mg IV per Hour for the next 24 hours. 2. Repeat EEG tomorrow off Versed. 3. Will attempt to get this before HD tomorrow. 4. HD per renal, tomorrow as patient got HD yesterday CCT 31 minutes. Subjective Date of service: 01/25/21 Principal diagnosis: witnessed seizure hx of ESRD ,hyponatremia Interval history: Patient had emesis overnight. Tube feeds held. KUB done which showed a large amount of stool. Mental status is unchanged. Seen by surgery on yesterday and family will make a decision after speaking with anesthesia. Objective Vital Signs - 12hr 01/24/21 01/24/21 01/24/21 23:20 23:30 23:40 Temperature Pulse Rate 105 H 104 H 104 H Pulse Rate [ From Monitor] Respiratory 12 13 18 Rate Blood Pressure 97/49 93/48 93/48 O2 Sat by Pulse 100 98 99 Oximetry 01/24/21 01/24/21 01/25/21 23:50 23:55 00:00 Temperature 100.3 F H Pulse Rate 103 H 102 H Pulse Rate [ 102 H From Monitor] Respiratory 20 16 Rate Blood Pressure 93/48 98/49 O2 Sat by Pulse 99 99 Oximetry 01/25/21 01/25/21 01/25/21 00:10 00:20 00:30 Temperature Pulse Rate 103 H 102 H 98 H Pulse Rate [ From Monitor] Respiratory 21 19 15 Rate Blood Pressure 98/49 98/49 96/48 O2 Sat by Pulse 100 100 100 Oximetry 01/25/21 01/25/21 01/25/21 00:40 00:50 01:00 Temperature Pulse Rate 99 H 101 H 101 H Pulse Rate [ From Monitor] Respiratory 17 20 17 Rate Blood Pressure 96/48 96/48 98/52 O2 Sat by Pulse 100 100 98 Oximetry 01/25/21 01/25/21 01/25/21 01:10 01:14 01:20 Temperature Pulse Rate 87 97 H 101 H Pulse Rate [ From Monitor] Respiratory 18 19 Rate Blood Pressure 98/52 98/52 98/52 O2 Sat by Pulse 99 99 99 Oximetry 01/25/21 01/25/21 01/25/21 01:30 01:40 01:50 Temperature Pulse Rate 101 H 102 H 97 H Pulse Rate [ From Monitor] Respiratory 18 21 13 Rate Blood Pressure 89/50 89/50 89/50 O2 Sat by Pulse 96 98 97 Oximetry 01/25/21 01/25/21 01/25/21 02:00 02:10 02:20 Temperature Pulse Rate 101 H 100 H 100 H Pulse Rate [ From Monitor] Respiratory 19 18 21 Rate Blood Pressure 92/47 92/47 92/47 O2 Sat by Pulse 95 96 97 Oximetry 01/25/21 01/25/21 01/25/21 02:30 02:40 02:50 Temperature Pulse Rate 101 H 99 H 99 H Pulse Rate [ From Monitor] Respiratory 12 12 18 Rate Blood Pressure 97/48 97/48 97/48 O2 Sat by Pulse 97 96 97 Oximetry 01/25/21 01/25/21 01/25/21 03:00 03:09 03:10 Temperature 98.9 F Pulse Rate 98 H 101 H Pulse Rate [ From Monitor] Respiratory 17 22 Rate Blood Pressure 85/41 85/41 O2 Sat by Pulse 97 97 Oximetry 01/25/21 01/25/21 01/25/21 03:20 03:30 03:40 Temperature Pulse Rate 102 H 100 H 103 H Pulse Rate [ From Monitor] Respiratory 16 15 21 Rate Blood Pressure 85/41 92/46 92/46 O2 Sat by Pulse 96 96 85 Oximetry 01/25/21 01/25/21 01/25/21 03:50 04:00 04:10 Temperature Pulse Rate 96 H 99 H 99 H Pulse Rate [ 91 H From Monitor] Respiratory 18 14 15 Rate Blood Pressure 92/46 102/51 102/51 O2 Sat by Pulse 100 99 99 Oximetry 01/25/21 01/25/21 01/25/21 04:20 04:30 04:40 Temperature Pulse Rate 98 H 96 H 98 H Pulse Rate [ From Monitor] Respiratory 12 14 15 Rate Blood Pressure 102/51 101/48 102/51 O2 Sat by Pulse 99 97 98 Oximetry 01/25/21 01/25/21 01/25/21 04:50 05:00 05:10 Temperature Pulse Rate 96 H 95 H 94 H Pulse Rate [ From Monitor] Respiratory 16 15 16 Rate Blood Pressure 102/51 92/44 101/48 O2 Sat by Pulse 97 96 98 Oximetry 01/25/21 01/25/21 01/25/21 05:20 05:30 05:40 Temperature Pulse Rate 92 H 94 H 94 H Pulse Rate [ From Monitor] Respiratory 14 17 17 Rate Blood Pressure 101/48 91/48 91/48 O2 Sat by Pulse 100 96 Oximetry 01/25/21 01/25/21 01/25/21 05:50 06:00 06:10 Temperature Pulse Rate 91 H 94 H 93 H Pulse Rate [ From Monitor] Respiratory 19 16 17 Rate Blood Pressure 91/48 91/48 92/48 O2 Sat by Pulse 96 97 96 Oximetry 01/25/21 01/25/21 01/25/21 06:20 06:30 06:40 Temperature Pulse Rate 95 H 94 H 93 H Pulse Rate [ From Monitor] Respiratory 12 14 17 Rate Blood Pressure 92/48 98/50 98/50 O2 Sat by Pulse 97 97 96 Oximetry 01/25/21 01/25/21 01/25/21 07:24 07:32 09:37 Temperature 99.6 F Pulse Rate 96 H 96 H Pulse Rate [ From Monitor] Respiratory Rate Blood Pressure 93/47 110/53 O2 Sat by Pulse 97 Oximetry Constitutional: no acute distress, comatose (secondary to meds for seizure) ENT: other (orally intubated and sedated) Neck: supple Effort: normal Ascultation: Bilateral: clear Cardiovascular: regular rate and rhythm Gastrointestinal: normoactive bowel sounds Integumentary: normal Extremities: no edema, pulses normal CBC and BMP: 01/23/21 04:41 01/23/21 04:41 ABG, PT/INR, D-dimer: ABG ABG pH 7.410 pH Units (7.350-7.450) 01/22/21 04:00 POC ABG pCO2 33.2 mmHg (32.0-48.0) 01/20/21 04:00 ABG pCO2 39.5 mm Hg 01/22/21 04:00 POC ABG pO2 97.9 mmHg (83-108) 01/20/21 04:00 ABG pO2 118.8 mm Hg (80.0-90.0) H 01/22/21 04:00 POC ABG HCO3 26.1 01/20/21 04:00 ABG O2 Saturation 98.3 % (95.0-99.0) 01/22/21 04:00 PT/INR, D-dimer PT 15.2 Sec. (12.2-14.9) H 01/22/21 04:20 INR 1.15 (0.87-1.13) H 01/22/21 04:20 Abnormal lab findings: Abnormal Labs 01/12/21 01/12/21 01/12/21 14:12 14:36 14:36 WBC 11.2 H RBC Hgb Hct MCV MCH 27 L RDW 21.0 H Plt Count Lymph % (Auto) Lymph # (Auto) Seg Neutrophils % 79.6 H Seg Neutrophils # 8.9 H PT INR ABG pH POC ABG pCO2 POC ABG pO2 ABG pO2 ABG Hemoglobin ABG Oxyhemoglobin ABG Sodium ABG Potassium ABG Glucose Sodium 136 L Potassium Chloride 95.8 L Carbon Dioxide 19 L BUN Creatinine 2.0 H Glucose 163 H POC Glucose 166 H Calcium 8.2 L Phosphorus Ammonia Total Protein 5.4 L Albumin 3.4 L TSH Arterial Blood Glucose Arterial Blood Ionized Calcium Phenytoin Valproic Acid 01/13/21 01/13/21 01/13/21 05:19 12:14 16:16 WBC RBC Hgb Hct MCV MCH RDW Plt Count Lymph % (Auto) Lymph # (Auto) Seg Neutrophils % Seg Neutrophils # PT INR ABG pH POC ABG pCO2 POC ABG pO2 ABG pO2 ABG Hemoglobin ABG Oxyhemoglobin ABG Sodium ABG Potassium ABG Glucose Sodium 134 L Potassium Chloride 95.5 L Carbon Dioxide BUN 23 H Creatinine 2.6 H Glucose 168 H POC Glucose 142 H 163 H Calcium Phosphorus Ammonia Total Protein 5.8 L Albumin 3.3 L TSH Arterial Blood Glucose Arterial Blood Ionized Calcium Phenytoin Valproic Acid 01/13/21 01/13/21 01/14/21 20:22 23:57 06:31 WBC RBC Hgb Hct MCV MCH RDW Plt Count Lymph % (Auto) Lymph # (Auto) Seg Neutrophils % Seg Neutrophils # PT INR ABG pH POC ABG pCO2 POC ABG pO2 ABG pO2 ABG Hemoglobin ABG Oxyhemoglobin ABG Sodium ABG Potassium ABG Glucose Sodium Potassium Chloride Carbon Dioxide BUN Creatinine Glucose POC Glucose 209 H 189 H 236 H Calcium Phosphorus Ammonia Total Protein Albumin TSH Arterial Blood Glucose Arterial Blood Ionized Calcium Phenytoin Valproic Acid 01/14/21 01/14/21 01/14/21 08:57 08:57 12:22 WBC 12.0 H RBC Hgb 11.3 L Hct 34.5 L MCV MCH RDW 20.6 H Plt Count Lymph % (Auto) 6.4 L Lymph # (Auto) 0.8 L Seg Neutrophils % 87.4 H Seg Neutrophils # 10.5 H PT INR ABG pH POC ABG pCO2 POC ABG pO2 ABG pO2 ABG Hemoglobin ABG Oxyhemoglobin ABG Sodium ABG Potassium ABG Glucose Sodium 131 L Potassium Chloride 93.7 L Carbon Dioxide BUN 37 H Creatinine 3.7 H Glucose 261 H POC Glucose 280 H Calcium Phosphorus Ammonia Total Protein Albumin TSH Arterial Blood Glucose Arterial Blood Ionized Calcium Phenytoin Valproic Acid 01/14/21 01/14/21 01/15/21 16:15 22:28 04:43 WBC RBC Hgb Hct MCV MCH RDW Plt Count Lymph % (Auto) Lymph # (Auto) Seg Neutrophils % Seg Neutrophils # PT INR ABG pH POC ABG pCO2 POC ABG pO2 ABG pO2 ABG Hemoglobin ABG Oxyhemoglobin ABG Sodium ABG Potassium ABG Glucose Sodium Potassium Chloride Carbon Dioxide BUN Creatinine Glucose POC Glucose 289 H 252 H 243 H Calcium Phosphorus Ammonia Total Protein Albumin TSH Arterial Blood Glucose Arterial Blood Ionized Calcium Phenytoin Valproic Acid 01/15/21 01/15/21 01/15/21 05:22 05:22 08:56 WBC 11.1 H RBC Hgb 11.0 L Hct 33.3 L MCV 83 L MCH 27 L RDW 20.6 H Plt Count Lymph % (Auto) 6.3 L Lymph # (Auto) 0.7 L Seg Neutrophils % 88.2 H Seg Neutrophils # 9.8 H PT INR ABG pH POC ABG pCO2 POC ABG pO2 ABG pO2 ABG Hemoglobin ABG Oxyhemoglobin ABG Sodium ABG Potassium ABG Glucose Sodium 130 L Potassium Chloride 92.0 L Carbon Dioxide BUN 49 H Creatinine 4.2 H Glucose 241 H POC Glucose Calcium Phosphorus Ammonia Total Protein Albumin TSH Arterial Blood Glucose Arterial Blood Ionized Calcium Phenytoin Valproic Acid 45.9 L 01/15/21 01/15/21 01/15/21 16:42 18:14 23:10 WBC RBC Hgb Hct MCV MCH RDW Plt Count Lymph % (Auto) Lymph # (Auto) Seg Neutrophils % Seg Neutrophils # PT INR ABG pH 7.463 H POC ABG pCO2 POC ABG pO2 377.4 H ABG pO2 ABG Hemoglobin 11.6 L ABG Oxyhemoglobin 98.6 H ABG Sodium 130.1 L ABG Potassium ABG Glucose 254 H Sodium Potassium Chloride Carbon Dioxide BUN Creatinine Glucose POC Glucose 218 H 279 H Calcium Phosphorus Ammonia Total Protein Albumin TSH Arterial Blood Glucose 254 H Arterial Blood Ionized Calcium 4.5 L Phenytoin Valproic Acid 01/16/21 01/16/21 01/16/21 03:10 05:11 05:17 WBC RBC Hgb 10.4 L Hct 31.8 L MCV MCH 27 L RDW 20.3 H Plt Count 132 L Lymph % (Auto) Lymph # (Auto) Seg Neutrophils % Seg Neutrophils # PT INR ABG pH POC ABG pCO2 POC ABG pO2 174.4 H ABG pO2 ABG Hemoglobin 10.3 L ABG Oxyhemoglobin 98.6 H ABG Sodium 129.9 L ABG Potassium 3.2 L ABG Glucose 202 H Sodium Potassium Chloride Carbon Dioxide BUN Creatinine Glucose POC Glucose 193 H Calcium Phosphorus Ammonia Total Protein Albumin TSH Arterial Blood Glucose 202 H Arterial Blood Ionized Calcium Phenytoin Valproic Acid 01/16/21 01/16/21 01/16/21 05:17 09:15 11:33 WBC RBC Hgb Hct MCV MCH RDW Plt Count Lymph % (Auto) Lymph # (Auto) Seg Neutrophils % Seg Neutrophils # PT INR ABG pH POC ABG pCO2 POC ABG pO2 ABG pO2 ABG Hemoglobin ABG Oxyhemoglobin ABG Sodium ABG Potassium ABG Glucose Sodium Potassium 3.4 L Chloride Carbon Dioxide BUN 36 H Creatinine 3.2 H Glucose 216 H POC Glucose 174 H Calcium 8.3 L Phosphorus 1.10 L Ammonia Total Protein Albumin TSH Arterial Blood Glucose Arterial Blood Ionized Calcium Phenytoin 6.5 L Valproic Acid 01/16/21 01/17/21 01/17/21 18:13 00:10 04:00 WBC RBC Hgb Hct MCV MCH RDW Plt Count Lymph % (Auto) Lymph # (Auto) Seg Neutrophils % Seg Neutrophils # PT INR ABG pH POC ABG pCO2 POC ABG pO2 ABG pO2 ABG Hemoglobin 10.1 L ABG Oxyhemoglobin ABG Sodium 130.1 L ABG Potassium 3.3 L ABG Glucose 153 H Sodium Potassium Chloride Carbon Dioxide BUN Creatinine Glucose POC Glucose 162 H 150 H Calcium Phosphorus Ammonia Total Protein Albumin TSH Arterial Blood Glucose 153 H Arterial Blood Ionized Calcium Phenytoin Valproic Acid 01/17/21 01/17/21 01/17/21 05:30 05:48 11:14 WBC RBC Hgb Hct MCV MCH RDW Plt Count Lymph % (Auto) Lymph # (Auto) Seg Neutrophils % Seg Neutrophils # PT INR ABG pH POC ABG pCO2 POC ABG pO2 ABG pO2 ABG Hemoglobin ABG Oxyhemoglobin ABG Sodium ABG Potassium ABG Glucose Sodium 136 L Potassium 3.5 L Chloride Carbon Dioxide BUN 48 H Creatinine 3.5 H Glucose 165 H POC Glucose 149 H Calcium 8.0 L Phosphorus 0.80 L* D Ammonia 22.0 L Total Protein Albumin TSH Arterial Blood Glucose Arterial Blood Ionized Calcium Phenytoin Valproic Acid 01/17/21 01/17/21 01/17/21 11:43 17:34 18:46 WBC RBC Hgb Hct MCV MCH RDW Plt Count Lymph % (Auto) Lymph # (Auto) Seg Neutrophils % Seg Neutrophils # PT INR ABG pH POC ABG pCO2 POC ABG pO2 ABG pO2 ABG Hemoglobin ABG Oxyhemoglobin ABG Sodium ABG Potassium ABG Glucose Sodium Potassium Chloride Carbon Dioxide BUN Creatinine Glucose POC Glucose 160 H 209 H Calcium Phosphorus 2.20 L D Ammonia Total Protein Albumin TSH Arterial Blood Glucose Arterial Blood Ionized Calcium Phenytoin Valproic Acid 01/17/21 01/17/21 01/18/21 19:00 23:19 03:28 WBC RBC Hgb Hct MCV MCH RDW Plt Count Lymph % (Auto) Lymph # (Auto) Seg Neutrophils % Seg Neutrophils # PT INR ABG pH POC ABG pCO2 POC ABG pO2 190.2 H ABG pO2 ABG Hemoglobin 11.9 L ABG Oxyhemoglobin 98.5 H ABG Sodium 130.9 L 131.0 L ABG Potassium 3.0 L 2.8 L ABG Glucose 241 H Sodium Potassium Chloride Carbon Dioxide BUN Creatinine Glucose POC Glucose 222 H Calcium Phosphorus Ammonia Total Protein Albumin TSH Arterial Blood Glucose 241 H Arterial Blood Ionized Calcium 4.5 L Phenytoin Valproic Acid 01/18/21 01/18/21 01/18/21 04:16 06:20 10:20 WBC 14.1 H RBC Hgb 11.2 L Hct 34.5 L MCV 83 L MCH 27 L RDW 20.8 H Plt Count 116 L Lymph % (Auto) Lymph # (Auto) Seg Neutrophils % Seg Neutrophils # PT INR ABG pH POC ABG pCO2 POC ABG pO2 ABG pO2 ABG Hemoglobin ABG Oxyhemoglobin ABG Sodium ABG Potassium ABG Glucose Sodium 134 L Potassium 2.9 L* Chloride Carbon Dioxide 21 L BUN 60 H Creatinine 3.9 H Glucose POC Glucose 69 L Calcium Phosphorus 1.60 L D Ammonia Total Protein Albumin TSH Arterial Blood Glucose Arterial Blood Ionized Calcium Phenytoin Valproic Acid 01/18/21 01/18/21 01/18/21 11:29 15:30 17:23 WBC RBC Hgb Hct MCV MCH RDW Plt Count Lymph % (Auto) Lymph # (Auto) Seg Neutrophils % Seg Neutrophils # PT INR ABG pH POC ABG pCO2 POC ABG pO2 ABG pO2 ABG Hemoglobin ABG Oxyhemoglobin ABG Sodium ABG Potassium ABG Glucose Sodium Potassium 3.3 L Chloride Carbon Dioxide BUN 42 H Creatinine 3.1 H Glucose 190 H POC Glucose 128 H 167 H Calcium 8.2 L Phosphorus 1.10 L D Ammonia Total Protein Albumin TSH Arterial Blood Glucose Arterial Blood Ionized Calcium Phenytoin Valproic Acid 01/18/21 01/19/21 01/19/21 23:43 03:43 04:38 WBC RBC Hgb Hct MCV MCH RDW Plt Count Lymph % (Auto) Lymph # (Auto) Seg Neutrophils % Seg Neutrophils # PT INR ABG pH 7.536 H POC ABG pCO2 27.0 L POC ABG pO2 165.8 H ABG pO2 ABG Hemoglobin 10.7 L ABG Oxyhemoglobin 98.4 H ABG Sodium 131.3 L ABG Potassium ABG Glucose 152 H Sodium Potassium Chloride Carbon Dioxide BUN 55 H Creatinine 3.8 H Glucose 143 H POC Glucose 232 H Calcium Phosphorus 1.10 L Ammonia Total Protein Albumin TSH Arterial Blood Glucose 152 H Arterial Blood Ionized Calcium Phenytoin Valproic Acid 01/19/21 01/19/21 01/19/21 05:12 11:36 15:16 WBC RBC Hgb Hct MCV MCH RDW Plt Count Lymph % (Auto) Lymph # (Auto) Seg Neutrophils % Seg Neutrophils # PT INR ABG pH POC ABG pCO2 POC ABG pO2 ABG pO2 ABG Hemoglobin ABG Oxyhemoglobin ABG Sodium ABG Potassium ABG Glucose Sodium Potassium Chloride Carbon Dioxide BUN Creatinine Glucose POC Glucose 135 H 201 H Calcium Phosphorus 1.10 L Ammonia Total Protein Albumin TSH Arterial Blood Glucose Arterial Blood Ionized Calcium Phenytoin Valproic Acid 01/19/21 01/19/21 01/20/21 17:55 23:22 04:00 WBC RBC Hgb Hct MCV MCH RDW Plt Count Lymph % (Auto) Lymph # (Auto) Seg Neutrophils % Seg Neutrophils # PT INR ABG pH 7.513 H POC ABG pCO2 POC ABG pO2 ABG pO2 ABG Hemoglobin 9.9 L ABG Oxyhemoglobin ABG Sodium 129.4 L ABG Potassium ABG Glucose 196 H Sodium Potassium Chloride Carbon Dioxide BUN Creatinine Glucose POC Glucose 222 H 252 H Calcium Phosphorus Ammonia Total Protein Albumin TSH Arterial Blood Glucose 196 H Arterial Blood Ionized Calcium Phenytoin Valproic Acid 01/20/21 01/20/21 01/20/21 05:15 11:15 14:49 WBC 16.1 H RBC Hgb 9.9 L Hct 30.3 L MCV 82 L MCH 27 L RDW 20.7 H Plt Count 114 L Lymph % (Auto) Lymph # (Auto) Seg Neutrophils % Seg Neutrophils # PT INR ABG pH POC ABG pCO2 POC ABG pO2 ABG pO2 ABG Hemoglobin ABG Oxyhemoglobin ABG Sodium ABG Potassium ABG Glucose Sodium Potassium Chloride Carbon Dioxide BUN Creatinine Glucose POC Glucose 163 H 149 H Calcium Phosphorus Ammonia Total Protein Albumin TSH Arterial Blood Glucose Arterial Blood Ionized Calcium Phenytoin Valproic Acid 01/20/21 01/20/21 01/20/21 14:49 14:49 17:12 WBC RBC Hgb Hct MCV MCH RDW Plt Count Lymph % (Auto) Lymph # (Auto) Seg Neutrophils % Seg Neutrophils # PT INR ABG pH POC ABG pCO2 POC ABG pO2 ABG pO2 ABG Hemoglobin ABG Oxyhemoglobin ABG Sodium ABG Potassium ABG Glucose Sodium 133 L Potassium Chloride 95.8 L Carbon Dioxide BUN 48 H Creatinine 3.1 H Glucose 167 H POC Glucose 155 H Calcium Phosphorus 0.80 L* D Ammonia Total Protein Albumin TSH Arterial Blood Glucose Arterial Blood Ionized Calcium Phenytoin Valproic Acid 48.4 L 01/21/21 01/21/21 01/21/21 00:55 05:20 06:39 WBC 17.5 H RBC 3.62 L Hgb 9.6 L Hct 29.7 L MCV 82 L MCH 26 L RDW 21.4 H Plt Count 126 L Lymph % (Auto) Lymph # (Auto) Seg Neutrophils % Seg Neutrophils # PT INR ABG pH POC ABG pCO2 POC ABG pO2 ABG pO2 ABG Hemoglobin ABG Oxyhemoglobin ABG Sodium ABG Potassium ABG Glucose Sodium Potassium Chloride Carbon Dioxide BUN Creatinine Glucose POC Glucose 134 H 170 H Calcium Phosphorus Ammonia Total Protein Albumin TSH Arterial Blood Glucose Arterial Blood Ionized Calcium Phenytoin Valproic Acid 01/21/21 01/21/21 01/21/21 06:39 11:32 17:41 WBC RBC Hgb Hct MCV MCH RDW Plt Count Lymph % (Auto) Lymph # (Auto) Seg Neutrophils % Seg Neutrophils # PT INR ABG pH POC ABG pCO2 POC ABG pO2 ABG pO2 ABG Hemoglobin ABG Oxyhemoglobin ABG Sodium ABG Potassium ABG Glucose Sodium 133 L Potassium Chloride 95.9 L Carbon Dioxide BUN 56 H Creatinine 3.2 H Glucose 159 H POC Glucose 159 H 137 H Calcium Phosphorus 2.30 L D Ammonia Total Protein Albumin TSH Arterial Blood Glucose Arterial Blood Ionized Calcium Phenytoin Valproic Acid 01/21/21 01/22/21 01/22/21 23:48 04:00 04:20 WBC 14.0 H RBC 3.47 L Hgb 9.3 L Hct 28.6 L MCV 83 L MCH 27 L RDW 21.4 H Plt Count 129 L Lymph % (Auto) Lymph # (Auto) Seg Neutrophils % Seg Neutrophils # PT INR ABG pH POC ABG pCO2 POC ABG pO2 ABG pO2 118.8 H ABG Hemoglobin 9.6 L ABG Oxyhemoglobin ABG Sodium ABG Potassium ABG Glucose Sodium Potassium Chloride Carbon Dioxide BUN Creatinine Glucose POC Glucose 203 H Calcium Phosphorus Ammonia Total Protein Albumin TSH Arterial Blood Glucose Arterial Blood Ionized Calcium Phenytoin Valproic Acid 01/22/21 01/22/21 01/22/21 04:20 04:20 04:20 WBC RBC Hgb Hct MCV MCH RDW Plt Count Lymph % (Auto) Lymph # (Auto) Seg Neutrophils % Seg Neutrophils # PT INR ABG pH POC ABG pCO2 POC ABG pO2 ABG pO2 ABG Hemoglobin ABG Oxyhemoglobin ABG Sodium ABG Potassium ABG Glucose Sodium 131 L Potassium Chloride 92.9 L Carbon Dioxide 21 L BUN 69 H Creatinine 3.9 H Glucose 230 H POC Glucose Calcium 8.1 L Phosphorus Ammonia 19.0 L Total Protein 5.2 L Albumin 1.9 L TSH 4.730 H Arterial Blood Glucose Arterial Blood Ionized Calcium Phenytoin Valproic Acid 01/22/21 01/22/21 01/22/21 04:20 05:14 11:36 WBC RBC Hgb Hct MCV MCH RDW Plt Count Lymph % (Auto) Lymph # (Auto) Seg Neutrophils % Seg Neutrophils # PT 15.2 H INR 1.15 H ABG pH POC ABG pCO2 POC ABG pO2 ABG pO2 ABG Hemoglobin ABG Oxyhemoglobin ABG Sodium ABG Potassium ABG Glucose Sodium Potassium Chloride Carbon Dioxide BUN Creatinine Glucose POC Glucose 213 H 151 H Calcium Phosphorus Ammonia Total Protein Albumin TSH Arterial Blood Glucose Arterial Blood Ionized Calcium Phenytoin Valproic Acid 01/22/21 01/23/21 01/23/21 17:47 00:06 04:41 WBC 18.5 H RBC 3.43 L Hgb 9.0 L Hct 28.1 L MCV 82 L MCH 26 L RDW 21.6 H Plt Count Lymph % (Auto) Lymph # (Auto) Seg Neutrophils % Seg Neutrophils # PT INR ABG pH POC ABG pCO2 POC ABG pO2 ABG pO2 ABG Hemoglobin ABG Oxyhemoglobin ABG Sodium ABG Potassium ABG Glucose Sodium Potassium Chloride Carbon Dioxide BUN Creatinine Glucose POC Glucose 271 H 295 H Calcium Phosphorus Ammonia Total Protein Albumin TSH Arterial Blood Glucose Arterial Blood Ionized Calcium Phenytoin Valproic Acid 01/23/21 01/23/21 01/23/21 04:41 05:31 11:54 WBC RBC Hgb Hct MCV MCH RDW Plt Count Lymph % (Auto) Lymph # (Auto) Seg Neutrophils % Seg Neutrophils # PT INR ABG pH POC ABG pCO2 POC ABG pO2 ABG pO2 ABG Hemoglobin ABG Oxyhemoglobin ABG Sodium ABG Potassium ABG Glucose Sodium 135 L Potassium Chloride Carbon Dioxide BUN 53 H Creatinine 3.1 H Glucose 187 H POC Glucose 183 H 178 H Calcium Phosphorus Ammonia Total Protein Albumin TSH Arterial Blood Glucose Arterial Blood Ionized Calcium Phenytoin Valproic Acid 01/23/21 01/23/21 01/24/21 17:54 23:15 05:27 WBC RBC Hgb Hct MCV MCH RDW Plt Count Lymph % (Auto) Lymph # (Auto) Seg Neutrophils % Seg Neutrophils # PT INR ABG pH POC ABG pCO2 POC ABG pO2 ABG pO2 ABG Hemoglobin ABG Oxyhemoglobin ABG Sodium ABG Potassium ABG Glucose Sodium Potassium Chloride Carbon Dioxide BUN Creatinine Glucose POC Glucose 243 H 241 H 298 H Calcium Phosphorus Ammonia Total Protein Albumin TSH Arterial Blood Glucose Arterial Blood Ionized Calcium Phenytoin Valproic Acid 01/24/21 01/24/21 01/24/21 12:00 17:26 23:53 WBC RBC Hgb Hct MCV MCH RDW Plt Count Lymph % (Auto) Lymph # (Auto) Seg Neutrophils % Seg Neutrophils # PT INR ABG pH POC ABG pCO2 POC ABG pO2 ABG pO2 ABG Hemoglobin ABG Oxyhemoglobin ABG Sodium ABG Potassium ABG Glucose Sodium Potassium Chloride Carbon Dioxide BUN Creatinine Glucose POC Glucose 259 H 178 H 251 H Calcium Phosphorus Ammonia Total Protein Albumin TSH Arterial Blood Glucose Arterial Blood Ionized Calcium Phenytoin Valproic Acid 01/25/21 01/25/21 04:54 06:02 WBC RBC Hgb Hct MCV MCH RDW Plt Count Lymph % (Auto) Lymph # (Auto) Seg Neutrophils % Seg Neutrophils # PT INR ABG pH POC ABG pCO2 POC ABG pO2 ABG pO2 ABG Hemoglobin ABG Oxyhemoglobin ABG Sodium ABG Potassium ABG Glucose Sodium Potassium Chloride Carbon Dioxide BUN Creatinine Glucose POC Glucose 235 H Calcium Phosphorus 2.20 L Ammonia Total Protein Albumin TSH Arterial Blood Glucose Arterial Blood Ionized Calcium Phenytoin Valproic Acid
--- NOTE | 2021-01-25 11:45 | Progress Note ---
Assessment and Plan Assessment and plan: 80-year-old male with ESRD on HD, HTN, CAD, cerebral arthrosclerosis, vascular dementia who is admitted for new onset seizures. On 01/15 patient was transferred to ICU and intubated for possible status epilepticus. Neuro: New onset seizure disorder; possibly be in status epilepticus vascular dementia chronic SDH cerebral atherosclerosis Neurology consulted, appreciate recommendations CT of the brain noted, no signs of acute infarct MRI showing subacute to chronic subdural hematoma. 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 -Celebrex, Keppra, Depacon -01/14 EEG is significantly abnormal, diffuse background slowing in 3-4 Hz, patient had a vertex waves and sleep spindles noted bilaterally and centrally, 2 events of facial twitching with associated generalized tonic/clonic activities, lasting for at least 15 seconds each followed by suppressions, findings suggestive of encephalopathic process and/or higher tendency of possible focal seizures with generalization, possibility of source of blood loss cannot be totally excluded -01/15 EEG shows burst suppression pattern, intermittent sharp electric activity is noted throughout the recording, pronounced in the right frontal region, findings consistent with generalized seizure activity -01/16 EEG shows findings of generalized burst suppression as well as recurrent triphasic waves sinuses Rocephin for the process, and her drug effect, reports after stage cannot be excluded, possibility of toxic metabolic and/or hepatic and/or renal insufficiency cannot be excluded -01/17 EEG shows significant improvement previous recording, no epileptiform discharges noted, no runs of sharp looking activity is appreciated, intermittent triphasic waves noted mostly bifrontally and improvement in the background activity to 4-6 Hz noted throughout the recording, concerning suggestive of mild encephalopathic process and/or postictal state of possibility of flexor metabolic etiology cannot be totally excluded -01/18 EEG interpreted as mildly encephalopathic process with background 4-5 Hz noted throughout the recording with triphasic waves noted occasionally and vertex waves centrally more pronounced on the left side, no epileptiform discharge appreciated, suggestive of possible toxic metabolic and/or drug effect, possibility of postictal state cannot be totally excluded -Aspiration and seizures precautions -PERRL; no commands; no movement; cough; gag; opens eyes worsening neuro status today v yesterday repeat head CT nothing acute noted UDS has been reordered- no urine on straight cath today - send if able to get urine on keppra 250 mg daily - discussed with pharm; will change to p HD for it is dialyzed out no further sz in the last 24 hours continue to monitor PRN pain meds home timolol no mind altering meds such as narcotics that would complicate neuro exam family updated on plan of care and they are discussing goals of care case management following GOAL: CONTINUE TO MONITOR MENTAL STATUS AND FOR SZ CONTINUE TO SUPPORT FAMILY THEY MAKE GOALS OF CARE DECISIONS Cardio: History of hypertension afib CVR in afib overnight rate 100-110 MAP is less than in SR but still 65-70 EKG this AM on home cardura no pressors statin holding asa due to SDH GOAL MONITOR AFIB AND BP; IF MAP FALLS < 65 NOTIFY TEAM FOR MANAGEMENT Resp: Acute hypoxic respiratory failure -Intubated 01/15 for possible status epilepticus however patient was extubated on 01/17 and had to be reintubated on 01/17 for hypoxia -Wean mechanical ventilation as tolerated see EMR for vent titration -VAP bundle -SPO2 monitoring per protocol -Serial ABGs and CXR -likely will need trach - family has been updated by Dr Gatica and they are discussing goals of care -nebs prn -chest xray noted this AM- no consolidation or infiltrate GOAL: PS/wean as tolerated GI Severe dysphagia; Failure to thrive Chronic PEG tube -On tube feedings changed 01-21 from nephro due to lowphos k phos supplements added -nutrition following bowel reg PPI GOAL: maximize nutritional state End-stage renal disease on HD Nephrology following Dialysis per renal team tolerating HD this AM -Avoid nephrotoxic medications Hypophosphatemia- improving -KPhos scheduled -resume home renal meds when appropriate HypoNa Uremia- trend oliguria no trinidad; requiring bladder scan and PRN straight caths pt net pos 1.8L over the last 24 hours GOAL: follow electrolytes; defer to nephrology for HD/fluid management Heme: a/c anemia Anemia of chronic disease -Admit H/H 12.339 -Transfuse for hemoglobin less than 7 epo for chronic anemia Thrombocytopenia improving -Hold anticouagualtion in setting of chronic SDH trend CBC- ordered for AM VTE- no AC given SDH GOAL: CONTINUE TO MONITOR ID: leukocytosis -01/13 nares: MRSA positive -01/15 tracheal aspirate with gram-negative rods, mod growth-- pseudomonas dc levaquin due to lowering of sz threshold -if pt spikes fever- reculture and consider antibiotics -PRN tylenol for fever -skin care per RN GOAL: CONTINUE TO MONITOR; PREVENT NOSOCOMIAL INFECTIONS Endo- DM monitor blood glucose avoid hypoglycemia if TF are interrupted hold rapid acting agents home linagliptin, lispro, tradjenta GOAL: MAINTAIN NORMAL BLOOD GLUCOSE History Interval history: This 80-year-old male who is a resident of a intermediate facility with ESRD on HD Thursday, , Thursday), hyperlipidemia, hypertension, vascular dementia, cerebral sclerosis presents to the emergency department after suspected cardiac arrest and initiation of ACLS at the dialysis center 01/12/2021 however upon EMS arrival patient was noted to be actively seizing and chest compressions were discontinued. Upon arrival to the emergency department patient was found to have new onset seizure disorder, acidosis. Nephrology was consulted for ESRD. Patient was initially admitted to the telemetry floor under observation. 01/13/2021. Seizure precautions. Continue IV Keppra and await neurology evaluation. Check EEG and MRI. CT scan negative. Continue hemodialysis per nephrology recommendations. 01/14/2021. Patient is somnolent and lethargic. However, no new seizure activity noted. CT brain is remarkable for white matter changes. Continue seizure precautions. Follow-up EEG and MRI brain. Neurology decrease Keppra to 250 mg twice daily. Ativan as needed for seizure. Continue hemodialysis per nephrology recommendations. 01/15/2021: There is no overt seizure activity, however patient continues to be nonverbal. Patient seen after dialysis. Patient is not responsive to any verbal cues. Patient is moaning. 01/16: Patient had EEG today and was noted to be having seizure activity on 2 mg of Versed and this was uptitrated to 3 mg Versed. Neurology has been informed. Hypokalemia and hypophosphatemia addressed. Likely HD tomorrow. 01/17: Repeat EEG completed today. Severe hypophosphatemia noted today, repleted with IV phos. HD scheduled today. 01/18: Repeat EEG today per neuro, HD per nephro. Hypokalemia today to 2.9 and hypophosphatemia to 1.6, patient received 40 M EQ of KCl, PhosNak for 1 day. Will obtain pm labs. Pateint is less responsive today but Neuro does not think he had another seizure. Thrombocytopenia, will trend CBC. Patient became hypoxic towards the end of dialysis and failed BiPAP therapy and had to be intubated for hypoxia. 01/19: UDS shows presumptive benzo, HD today per nephro, Phos remains low but still has not completed supplementation. Nephro suggests flumazenil. 01/20: On CMV tidal volume 550, rate of 18, PEEP of 6 on 45% FiO2, patient has a better physical exam with neurology this morning. AM labs pending. 01/20 no acute events overnight 01/21 noted to be in afib this AM 01/22. Pulmonary considering extubation. However patient failed PSV trials. 01/23/2021. Pulmonary had a long discussion with family regarding tracheostomy and vent weaning. Patient continued on mechanical ventilation. Continue Keppra/AEDs. No new seizure activity 01/24/2021. Patient remains on mechanical ventilation with PSV/CPAP mode, FiO2 35%, CPAP 6, pressure support 15. Pulmonary consult surgery for tracheostomy. Continue Keppra and seizure precautions. Patient currently with A. fib but rate controlled. Consult cardiology for further evaluation. Neuro: New onset seizure disorder; possibly be in status epilepticus vascular dementia chronic SDH cerebral atherosclerosis Neurology consulted, appreciate recommendations CT of the brain noted, no signs of acute infarct MRI showing subacute to chronic subdural hematoma. 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 -Zane Preston Depacon -01/14 EEG is significantly abnormal, diffuse background slowing in 3-4 Hz, patient had a vertex waves and sleep spindles noted bilaterally and centrally, 2 events of facial twitching with associated generalized tonic/clonic activities, lasting for at least 15 seconds each followed by suppressions, findings pierce ggestive of encephalopathic process and/or higher tendency of possible focal seizures with generalization, possibility of source of blood loss cannot be totally excluded -01/15 EEG shows burst suppression pattern, intermittent sharp electric activity is noted throughout the recording, pronounced in the right frontal region, findings consistent with generalized seizure activity -01/16 EEG shows findings of generalized burst suppression as well as recurrent triphasic waves sinuses Rocephin for the process, and her drug effect, reports after stage cannot be excluded, possibility of toxic metabolic and/or hepatic and/or renal insufficiency cannot be excluded -01/17 EEG shows significant improvement previous recording, no epileptiform discharges noted, no runs of sharp looking activity is appreciated, intermittent triphasic waves noted mostly bifrontally and improvement in the background activity to 4-6 Hz noted throughout the recording, concerning suggestive of mild encephalopathic process and/or postictal state of possibility of flexor metabolic etiology cannot be totally excluded -01/18 EEG interpreted as mildly encephalopathic process with background 4-5 Hz noted throughout the recording with triphasic waves noted occasionally and vertex waves centrally more pronounced on the left side, no epileptiform discharge appreciated, suggestive of possible toxic metabolic and/or drug effect, possibility of postictal state cannot be totally excluded -Aspiration and seizures precautions -PERRL; no commands; no movement; cough; gag; opens eyes PRN pain meds home timolol no mind altering meds such as narcotics that would complicate neuro exam family updated on plan of care and they are discussing goals of care case management following Cardio: History of hypertension afib CVR SR with WAP on home cardura cards has seen patient no pressors statin holding asa due to SDH Resp: Acute hypoxic respiratory failure -Intubated 01/15 for possible status epilepticus however patient was extubated on 01/17 and had to be reintubated on 01/17 for hypoxia -Wean mechanical ventilation as tolerated see EMR for vent titration not tolerating PS for he goes apnic -VAP bundle -SPO2 monitoring per protocol -Serial ABGs and CXR -nebs prn -chest xray noted this AM- no consolidation or infiltrate -trach pending -- family is wanting to talk with anesthesia prior to consenting for procedure GI Severe dysphagia; Failure to thrive Chronic PEG tube -TF- ok to feed -nutrition following bowel reg no BM in several days inc bowel reg and mg citrate today PPI End-stage renal disease on HD Nephrology following Dialysis per renal team tolerating HD this AM -Avoid nephrotoxic medications Hypophosphatemia- improving -KPhos scheduled -resume home renal meds when appropriate HypoNa Uremia- trend oliguria no [place]in[place]; requiring bladder scan and PRN straight caths Heme: a/c anemia Anemia of chronic disease -Admit H/H 12. -Transfuse for hemoglobin less than 7 epo for chronic anemia Thrombocytopenia improving -Hold anticouagualtion in setting of chronic SDH trend CBC- ordered for AM VTE- no AC given SDH ID: leukocytosis -01/13 nares: MRSA positive -01/15 tracheal aspirate with gram-negative rods, mod growth-- pseudomonas dc levaquin due to lowering of sz threshold -if pt spikes fever- reculture and consider antibiotics -PRN tylenol for fever -skin care per RN Endo- DM with hyperglycemia monitor blood glucose avoid hypoglycemia if TF are interrupted hold rapid acting agents home linagliptin, lispro, tradjenta Disposition Plan: tbd Total Time Spent with Patient (Minutes): 60 History Interval history: no acute events overnight Hospitalist Physical - Constitutional Vitals: Temp Pulse Resp BP Pulse Ox 99.6 F 95 H 17 101/59 97 01/25/21 07:32 01/25/21 11:13 01/25/21 06:40 01/25/21 11:13 01/25/21 11:13 General appearance: Present: no acute distress - EENT Eyes: Present: PERRL ENT: clear oral mucosa - Neck Neck: Present: supple - Respiratory Respiratory effort: normal - Cardiovascular Rhythm: regularly irregular Heart Sounds: Present: S1 & S2 Peripheral Pulses: within normal limits - Abdominal General gastrointestinal: soft - Integumentary Integumentary: Present: clear, warm, dry - Psychiatric Psychiatric: appropriate mood/affect - Neurologic Neurologic: other - Allied Health Allied health notes reviewed: nursing, social work, case management Results - Labs CBC & Chem 7: 01/23/21 04:41 01/23/21 04:41 Labs: Laboratory Last Values WBC 18.5 K/mm3 (4.5-11.0) H 01/23/21 04:41 RBC 3.43 M/mm3 (3.65-5.03) L 01/23/21 04:41 Hgb 9.0 gm/dl (11.8-15.2) L 01/23/21 04:41 Hct 28.1 % (35.5-45.6) L 01/23/21 04:41 MCV 82 fl (84-94) L 01/23/21 04:41 MCH 26 pg (28-32) L 01/23/21 04:41 MCHC 32 % (32-34) 01/23/21 04:41 RDW 21.6 % (13.2-15.2) H 01/23/21 04:41 Plt Count 146 K/mm3 (140-440) 01/23/21 04:41 Lymph % (Auto) 6.3 % (13.4-35.0) L 01/15/21 05:22 [place] % (Auto) 5.4 % (0.0-7.3) 01/15/21 05:22 Eos % (Auto) 0.0 % (0.0-4.3) 01/15/21 05:22 Baso % (Auto) 0.1 % (0.0-1.8) 01/15/21 05:22 Lymph # (Auto) 0.7 K/mm3 (1.2-5.4) L 01/15/21 05:22 [place] # (Auto) 0.6 K/mm3 (0.0-0.8) 01/15/21 05:22 Eos # (Auto) 0.0 K/mm3 (0.0-0.4) 01/15/21 05:22 Baso # (Auto) 0.0 K/mm3 (0.0-0.1) 01/15/21 05:22 Seg Neutrophils % 88.2 % (40.0-70.0) H 01/15/21 05:22 Seg Neutrophils # 9.8 K/mm3 (1.8-7.7) H 01/15/21 05:22 PT 15.2 Sec. (12.2-14.9) H 01/22/21 04:20 INR 1.15 (0.87-1.13) H 01/22/21 04:20 ABG pH 7.410 pH Units (7.350-7.450) 01/22/21 04:00 POC ABG pCO2 33.2 mmHg (32.0-48.0) 01/20/21 04:00 ABG pCO2 39.5 mm Hg 01/22/21 04:00 POC ABG pO2 97.9 mmHg (83-108) 01/20/21 04:00 ABG pO2 118.8 mm Hg (80.0-90.0) H 01/22/21 04:00 POC ABG HCO3 26.1 01/20/21 04:00 ABG HCO3 24.5 mmol/L (20.0-26.0) 01/22/21 04:00 ABG O2 Saturation 98.3 % (95.0-99.0) 01/22/21 04:00 ABG O2 Content 13.2 (0.0-44) 01/22/21 04:00 POC ABG Base Excess 3.2 01/20/21 04:00 ABG Base Excess -0.1 mmol/L (-2.0-3.0) 01/22/21 04:00 ABG Hemoglobin 9.6 gm/dl (14.0-18.0) L 01/22/21 04:00 ABG Oxyhemoglobin 96.4 (94-98) 01/20/21 04:00 ABG Carboxyhemoglobin 1.5 % (0.0-5.0) 01/22/21 04:00 ABG Methemoglobin 0.3 % (0.0-1.5) 01/22/21 04:00 ABG Sodium 129.4 mmol/L (136.0-145.0) L 01/20/21 04:00 ABG Potassium 3.6 mmol/L (3.40-4.50) 01/20/21 04:00 ABG Chloride 100.0 mmol/L (98-107) 01/20/21 04:00 ABG Glucose 196 mg/dL (65-95) H 01/20/21 04:00 Oxyhemoglobin 96.5 % (95.0-99.0) 01/22/21 04:00 Carboxyhemoglobin 1.4 (0.5-1.5) 01/20/21 04:00 FiO2 35 % 01/22/21 04:00 FiO2 % 45.0 01/20/21 04:00 Sodium 135 mmol/L (137-145) L 01/23/21 04:41 Potassium 4.0 mmol/L (3.6-5.0) 01/23/21 04:41 Chloride 98.3 mmol/L (98-107) 01/23/21 04:41 Carbon Dioxide 23 mmol/L (22-30) 01/23/21 04:41 Anion Gap 18 mmol/L 01/23/21 04:41 BUN 53 mg/dL (9-20) H 01/23/21 04:41 Creatinine 3.1 mg/dL (0.8-1.3) H 01/23/21 04:41 Estimated GFR 23 ml/min 01/23/21 04:41 BUN/Creatinine Ratio 17 % 01/23/21 04:41 Glucose 187 mg/dL (75-100) H 01/23/21 04:41 POC Glucose 209 mg/dL (70-105) H 01/25/21 11:27 Calcium 8.6 mg/dL (8.4-10.2) 01/23/21 04:41 Phosphorus 2.20 mg/dL (2.5-4.5) L 01/25/21 06:02 Magnesium 2.00 mg/dL (1.7-2.3) 01/22/21 04:20 Total Bilirubin 0.20 mg/dL (0.1-1.2) 01/22/21 04:20 Direct Bilirubin < 0.2 mg/dL (0-0.2) 01/12/21 14:36 Indirect Bilirubin 0.1 mg/dL 01/12/21 14:36 AST 37 units/L (5-40) 01/22/21 04:20 ALT 23 units/L (7-56) 01/22/21 04:20 Alkaline Phosphatase 108 units/L (35-129) 01/22/21 04:20 Ammonia 19.0 umol/L (25-60) L 01/22/21 04:20 Total Protein 5.2 g/dL (6.3-8.2) L 01/22/21 04:20 Albumin 1.9 g/dL (3.9-5) L 01/22/21 04:20 Albumin/Globulin Ratio 0.6 % 01/22/21 04:20 TSH 4.730 mlU/mL (0.270-4.200) H 01/22/21 04:20 Arterial Blood Glucose 196 mg/dL (65-95) H 01/20/21 04:00 Arterial Blood Ionized Calcium 4.6 mg/dL (4.6-5.3) 01/20/21 04:00 Nasal Screen MRSA (PCR) Positive (Negative) 01/13/21 Unknown Urine Opiates Screen Negative 01/18/21 14:25 Urine Methadone Screen Negative 01/18/21 14:25 Ur Barbiturates Screen Negative 01/18/21 14:25 Phenytoin 6.5 ug/mL (10.0-20.0) L 01/16/21 09:15 Valproic Acid 48.4 ug/mL (50-100) L 01/20/21 14:49 Ur Phencyclidine Scrn Negative 01/18/21 14:25 Ur Amphetamines Screen Negative 01/18/21 14:25 U Benzodiazepines Scrn Presumptive positive 01/18/21 14:25 Urine Cocaine Screen Negative 01/18/21 14:25 U Marijuana (THC) Screen Negative 01/18/21 14:25 Drugs of Abuse Note Disclamer 01/18/21 14:25 Coronavirus (PCR) Negative (Negative) 01/15/21 08:00 Hepatitis A IgM Ab Non-reactive (NonReactive) 01/15/21 09:15 Hep Bs Antigen Non-reactive (Negative) 01/15/21 09:15 Hep B Core IgM Ab Non-reactive (NonReactive) 01/15/21 09:15 Hepatitis C Antibody Non-reactive (NonReactive) 01/15/21 09:15 [place]/IV: Voiding Method Incontinent Active Medications - Current Medications Current Medications: Generic Name Dose Route Start Last Admin Trade Name Freq PRN Reason Stop Dose Admin Acetaminophen 650 mg 01/12/21 19:30 Acetaminophen 325 Mg Tab PO Q4H PRN Pain MILD(1-3)/Fever >100.5/ABEL Albuterol 2.5 mg 01/12/21 19:30 Albuterol 2.5 Mg/3 Ml Nebu IH Q4HRT PRN Shortness Of Breath Lipase/Protease/Amylase 1 each 01/13/21 10:11 Lipase 10,500/Protease 25,000/Amylase 43,750 (Units) Dr Silveira FEEDTUBE PRN PRN For Clogged Feeding Tube Atorvastatin Calcium 40 mg 01/12/21 22:00 01/24/21 21:24 Atorvastatin 40 Mg Tab PO 40 mg QHS NOLAN Administration Calcitriol 1 mcg 01/13/21 10:00 01/25/21 09:37 Calcitriol 0.5 Mcg Cap PO 1 mcg QDAY NOLAN Administration Docusate Sodium 100 mg 01/17/21 09:00 Docusate Sodium 100 Mg/10 Ml Oral Liqd PO BID PRN Constipation Doxazosin Mesylate 2 mg 01/18/21 10:00 01/25/21 09:37 Doxazosin 1 Mg Tab PO Not Given QDAY NOLAN Hydrophilic Ointment 1 applic 01/15/21 17:14 Lip Therapy Vaseline TP Q2HR PRN Dry Lips Sodium Chloride 100 mls @ 999 mls/hr 01/15/21 08:00 Nacl 0.9% IV DIONNA PRN Hypotension Insulin Glargine 5 units 01/25/21 22:00 Insulin Glargine 100 Units/Ml SUB-Q QHS [facility] Insulin Human Lispro 0 unit 01/16/21 00:00 01/25/21 05:13 Insulin Lispro 100 Unit/Ml SUB-Q Not Given Q6HR [facility] Protocol Lansoprazole 30 mg 01/12/21 22:00 01/25/21 09:38 Lansoprazole 30 Mg Solutab FEEDTUBE 30 mg BID NOLAN Administration Levetiracetam 250 mg 01/23/21 22:00 01/24/21 21:23 Levetiracetam 500 Mg/5 Ml Oral Liqd PO 250 mg QHS NOLAN Administration Linagliptin 5 mg 01/13/21 11:00 01/25/21 09:38 Linagliptin 5 Mg Tab PO 5 mg QDDIAB NOLAN Administration Magnesium Citrate 300 ml 01/25/21 12:00 Magnesium Citrate 300 Ml Oral Liqd PO 01/25/21 12:01 ONCE ONE Multi-Ingred Cream/Lotion/Oil/Oint 1 applic 01/15/21 17:14 Mineral Oil/Petrolatum, White Ophth Oint 3.5 Gm OU Q4HR PRN Dry Eye(s) Ondansetron HCl 4 mg 01/12/21 19:30 01/24/21 21:24 Ondansetron 4 Mg/2 Ml Inj IV 4 mg Q8H PRN Administration Nausea And Vomiting Potassium Phos/Sodium Phos 1 each 01/25/21 09:00 01/25/21 09:37 Phos-Nak Powder Packet PO 1 each Q8HR [facility] Administration Senna 17.2 mg 01/25/21 10:00 01/25/21 09:37 Sennosides 8.6 Mg Tab PO 17.2 mg Q8H NOLAN Administration Simple Syrup 15 ml 01/13/21 10:11 01/18/21 06:54 Simple Syrup 15 Ml FEEDTUBE 15 ml PRN PRN Administration Hypoglycemia Simple Syrup 30 ml 01/13/21 10:11 Simple Syrup 15 Ml FEEDTUBE PRN PRN Hypoglycemia Sodium Bicarbonate 325 mg 01/13/21 10:11 01/24/21 21:24 Sodium Bicarbonate 325 Mg Tab FEEDTUBE 325 mg PRN PRN Administration For Clogged Feeding Tube Sodium Chloride 10 ml 01/12/21 22:00 01/25/21 09:39 Sodium Chloride 0.9% 10 Ml Flush Syringe IV 10 ml BID NOLAN Administration Timolol Maleate 1 drops 01/17/21 10:00 01/25/21 09:39 Timolol 0.5% Ophth Soln 5 Ml OU 1 drops QDAY NOLAN Administration Nutrition/Malnutrition Assess - Dietary Evaluation Nutrition/Malnutrition Findings: Nutrition Notes Start: 01/13/21 10:03 Freq: Status: Active Protocol: Document 01/23/21 14:52 NANCY (Rec: 01/23/21 14:58 [facility] [id number]) Nutrition Notes Initial or Follow up Reassessment Current Diagnosis CKD (stage V CKD),Diabetes, Hypertension Other Pertinent Diagnosis Chronic seizure d/o Current Diet TF - Osmolite 1.5 at 50ml/hr Labs/Tests BUN 53 Cr 3.1 Na 135 Phos 3.7 (01/22) BG 187 POC Glu range on 01/21: 134-203 POC Glu range on 01/22: 151-295 Pertinent Medications Humalog Height 5 ft 9 in Weight 56.1 kg [place] Body Weight (kg) 72.72 BMI 18.2 Weight Status Underweight Subjective/Other Information Pt remains on vent support. Per RN, pt tolerating TF at goal rate. Percent of energy/protein needs met: 100% energy and pro Burn Absent Trauma Absent #2 Nutrition Diagnosis Increased nutrient needs ( specify in comment below) Diagnosis Progress(for reassessment Continues documentation) #1 Nutrition Diagnosis Inadequate oral intake Diagnosis Progress(for reassessment Continues documentation) Is patient on ventilator? Yes Is Patient Ambulatory and/or Out of Bed No REE-([facility]-confined to bed) 1508.844 Kcal/Kg value to use for calculation 35 Approximate Energy Requirements Using 1964 kcal/Kg Calculation Used for Recommendations Kcal/kg Additional Notes Pro needs >1.2g/kg: >67g/day Fluid needs 1-1.5L/day Nutrition Intervention Nutrition Support: Continue Osmolite 1.5 at 50ml/ hr with 150ml water flush q4h. Provides 2200mg K, 1200mg Phos , 1680mg Na. Kcal 1,800 Protein (gm) 75 Carbohydrates (gm) 244 Fat (gm) 59 Fluid (mL) 914 Fiber (gm) 0 Goal #1 TF tolerance Goal #2 TF to meet 100% energy and pro needs Goal #3 Wt maintenance and/or gain Follow-Up By: 01/29/21 Additional Comments F/U: stable TF, BG labs, vent status - Attestation Statement I have reviewed and agreed w/ Malnutrition eval & tx plan: Yes
[2021-01-25] MEDS ORDERED: MAGNESIUM CITRATE 300 ML ORAL LIQD PO ONE (12:00)
--- NOTE | 2021-01-25 13:37 | Event Note ---
Date: 01/25/21 Followed up with family today and they are agreeable to proceed with tracheostomy. Patient scheduled tentatively for Thursday01/29/21 at 12pm. Will obtain consent from patient's spouse/LEIDY Apple. Preop orders to be placed Thursday.
--- NOTE | 2021-01-25 14:08 | Progress Note ---
Assessment and Plan Wandering PAcemaker * Echo 10/26/2020-EF 55 to 60% normal left ventricle. Right ventricle normal. Left and right atrium are normal mild aortic valve sclerosis mild aortic regurgitation mild mitral regurgitation * EKG and monitor showeda Wandering Pacemaker rhythm * May consider metoprolol for rate control once patient more hemodynamically stable Vascular Dementia * Recommend initiating Aspirin 81mg PO QD * Continue atorvastain 40mg PO QHS HTN * Optimize hypertensive regimen. Patient BP noted to be low hold Doxazosin 2mg PO QD Patient seen in conjunction with Dr. Leach who agrees to this plan of care. Will see as needed - Patient Problems (1) Cerebral atherosclerosis Current Visit: Yes Status: Acute (2) End stage renal disease Current Visit: Yes Status: Acute (3) New onset seizure Current Visit: Yes Status: Acute (4) Vascular dementia Current Visit: Yes Status: Acute Qualifiers: Dementia behavioral disturbance: without behavioral disturbance Qualified Code(s): F01.50 - Vascular dementia without behavioral disturbance (5) Hyperlipidemia Current Visit: No Status: Chronic Qualifiers: Hyperlipidemia type: mixed hyperlipidemia Qualified Code(s): E78.2 - Mixed hyperlipidemia (6) Hypertension Current Visit: No Status: Chronic Qualifiers: Hypertension type: essential hypertension Qualified Code(s): I10 - Essent ial (primary) hypertension Subjective Date of service: 01/25/21 Principal diagnosis: witnessed seizure hx of ESRD ,hyponatremia Interval history: Patient intubated Wandering Pacemaker 90s on monitor Objective Vital Signs Last Vital Signs Temp 99.9 F H 01/25/21 12:00 Pulse 96 H 01/25/21 12:50 Resp 19 01/25/21 12:50 BP 111/57 01/25/21 12:50 Pulse Ox 99 01/25/21 12:50 - Physical Examination General: No Apparent Distress HEENT: Positive: Mucus Membranes Dry Neck: Positive: trachea midline Cardiac: Positive: Regular Rate Lungs: Positive: Ventilated Respirations Neuro: Positive: Grossly Intact, Other (unable to assess) Abdomen: Positive: Soft, Active Bowel Sounds Skin: Negative: Rash, Suspicious Lesions Extremities: Present: normal, upper extr. pulses, lower extr. pulses, +1 Edema - Imaging and Cardiology EKG: report reviewed, image reviewed Echo: report reviewed - Telemetry EKG Rhythm: Sinus Rhythm - EKG Sinus rhythms and dysrhythmias: sinus tachycardia
[2021-01-25] MEDS: levETIRAcetam 500 MG/5 ML ORAL LIQD PO SCH (21:48)
[2021-01-25] MEDS: INSULIN GLARGINE 100 UNITS/ML SUB-Q SCH (21:48)
[2021-01-26] MEDS: INSULIN LISPRO 100 UNIT/ML SUB-Q SCH ×4 (01:35→18:01)
[2021-01-26] MEDS: SENNOSIDES 8.6 MG TAB PO SCH ×3 (05:51→18:02)
[2021-01-26] MEDS: PHOS-NAK POWDER PACKET PO SCH ×3 (06:43→22:20)
[2021-01-26 07:10] LABS: Hematocrit 26.6 % (35.5-45.6); Hemoglobin 8.4 gm/dl (11.8-15.2); Mean Corpuscular HGB Conc 32 % (32-34); Mean Corpuscular Volume 84 fl (84-94); Platelet Count 182 K/mm3 (140-440); Red Blood Count 3.18 M/mm3 (3.65-5.03)
[2021-01-26 07:27] LABS: Red Cell Distribution Width 21.8 % (13.2-15.2)
[2021-01-26 07:30] LABS: Calcium 8.5 mg/dL (8.4-10.2)
[2021-01-26] MEDS: DOXAZOSIN 1 MG TAB PO SCH (09:27)
[2021-01-26] MEDS: CALCITRIOL 0.5 MCG CAP PO SCH (09:27)
[2021-01-26] MEDS: LINAGLIPTIN 5 MG TAB PO SCH (09:28)
[2021-01-26] MEDS: TIMOLOL 0.5% OPHTH SOLN 5 ML OU SCH (09:28)
[2021-01-26] MEDS: LANSOPRAZOLE 30 MG SOLUTAB FEEDTUBE SCH ×2 (09:28→22:20)
--- NOTE | 2021-01-26 11:17 | Progress Note ---
Assessment and Plan Assessment and plan: 80 [facility]O Male [facility] Resident with ESRD on HD(T,R,Sa), HLD, HTN, Vascular Dementia, Cerebral Atherosclerosi admitted with diagnosis of new onset seizure. Patient was started on IV Keppra. Patient has had no new seizure activity. Acute hypoxic respiratory failure. Intubated 01/15 for possible status epilepticus however patient was extubated on 01/17 and had to be reintubated on 01/17 for hypoxia. new onset seizure disorder. Vascular dementia Chronic SDH. Holding aspirin Cerebral atherosclerosis ESRD A. fib with RVR Hypertension Oropharyngeal dysphagia. Chronic PEG tube Anemia of chronic disease 01/13/2021. Seizure precautions. Continue IV Keppra and await neurology ev aluation. Check EEG and MRI. CT scan negative. Continue hemodialysis per nephrology recommendations. 01/14/2021. Patient is somnolent and lethargic. However, no new seizure activity noted. CT brain is remarkable for white matter changes. Continue seizure precautions. Follow-up EEG and MRI brain. Neurology decrease Keppra to 250 mg twice daily. Ativan as needed for seizure. Continue hemodialysis per nephrology recommendation 01/15 EEG shows burst suppression pattern, intermittent sharp electric activity is noted throughout the recording, pronounced in the right frontal region, findings consistent with generalized seizure activity 01/16 EEG shows findings of generalized burst suppression as well as recurrent triphasic waves sinuses Rocephin for the process, and her drug effect, reports after stage cannot be excluded, possibility of toxic metabolic and/or hepatic and/or renal insufficiency cannot be excluded 01/17 EEG shows significant improvement previous recording, no epileptiform discharges noted, no runs of sharp looking activity is appreciated, intermittent triphasic waves noted mostly bifrontally and improvement in the background activity to 4-6 Hz noted throughout the recording, concerning suggestive of mild encephalopathic process and/or postictal state of possibility of flexor metabolic etiology cannot be totally excluded 01/18 EEG interpreted as mildly encephalopathic process with background 4-5 Hz noted throughout the recording with triphasic waves noted occasionally and vertex waves centrally more pronounced on the left side, no epileptiform disc harge appreciated, suggestive of possible toxic metabolic and/or drug effect, possibility of postictal state cannot be totally excluded. Hypokalemia today to 2.9 and hypophosphatemia to 1.6, patient received 40 M EQ of KCl, PhosNak for 1 day. Will obtain pm labs. Pateint is less responsive today but Neuro does not think he had another seizure. Thrombocytopenia, will trend CBC. Patient became hypoxic towards the end of dialysis and failed BiPAP therapy and had to be intubated for hypoxia. 01/19: UDS shows presumptive benzo, HD today per nephro, Phos remains low but s till has not completed supplementation. Nephro suggests flumazenil. 01/20: On CMV tidal volume 550, rate of 18, PEEP of 6 on 45% FiO2, patient has a better physical exam with neurology this morning. AM labs pending. 01/20 no acute events overnight 01/21 noted to be in afib this AM. 01/22. Pulmonary considering extubation. However patient failed PSV trials. 01/23/2021. Pulmonary had a long discussion with family regarding tracheostomy and vent weaning. Patient continued on mechanical ventilation. Continue Keppra/AEDs. No new seizure activity 01/24/2021. Patient remains on mechanical ventilation with PSV/CPAP mode, FiO2 35%, CPAP 6, pressure support 15. Pulmonary consult surgery for tracheostomy. Continue Keppra and seizure precautions. Patient currently with A. fib but rate controlled. Consult cardiology for further evaluation 01/26/2021. Patient remains on mechanical ventilation AC mode rate of 12, tidal volume 450, FiO2 25% and PEEP of 6. Patient failed PSV trials yesterday. General surgery evaluated the patient and plans for tracheostomy on Thursday. Continue secretion control and airway management. Tube feeding restarted. Monitor for residuals and aspiration precautions The high probability of a clinically significant, sudden or life threatening deterioration of the [respiratory, neurological] system(s) required my full and direct attention, intervention and personal management. The aggregate critical care time was [32] minutes. This time is in addition to time spent performing reported procedures but includes the following: [x] Data Review and interpretation [x] Patient assessment and monitoring of vital signs [x] Documentation [x] Medication orders and management History Interval history: No new issues Hospitalist Physical - Constitutional Vitals: Temp Pulse Resp BP Pulse Ox 97.7 F 83 16 156/74 100 01/26/21 08:00 01/26/21 11:02 01/26/21 09:00 01/26/21 11:02 01/26/21 11:02 General appearance: Present: no acute distress - EENT Eyes: Present: PERRL, EOM intact ENT: hearing intact, clear oral mucosa, dentition normal - Neck Neck: Present: supple, normal ROM - Respiratory Respiratory effort: normal Respiratory: bilateral: CTA - Cardiovascular Rhythm: regular Heart Sounds: Present: S1 & S2. Absent: gallop, rub - Extremities Extremities: no ischemia, No edema, Full ROM - Abdominal General gastrointestinal: soft, non-tender, non-distended, normal bowel sounds - Integumentary Integumentary: Present: clear, warm, dry - Neurologic Neurologic: CNII-XII intact, moves all extremities Results - Labs CBC & Chem 7: 01/26/21 06:47 01/26/21 06:47 Labs: Laboratory Last Values WBC 21.6 K/mm3 (4.5-11.0) H 01/26/21 06:47 RBC 3.18 M/mm3 (3.65-5.03) L 01/26/21 06:47 Hgb 8.4 gm/dl (11.8-15.2) L 01/26/21 06:47 Hct 26.6 % (35.5-45.6) L 01/26/21 06:47 MCV 84 fl (84-94) 01/26/21 06:47 MCH 27 pg (28-32) L 01/26/21 06:47 MCHC 32 % (32-34) 01/26/21 06:47 RDW 21.8 % (13.2-15.2) H 01/26/21 06:47 Plt Count 182 K/mm3 (140-440) 01/26/21 06:47 Lymph % (Auto) 6.3 % (13.4-35.0) L 01/15/21 05:22 [place] % (Auto) 5.4 % (0.0-7.3) 01/15/21 05:22 Eos % (Auto) 0.0 % (0.0-4.3) 01/15/21 05:22 Baso % (Auto) 0.1 % (0.0-1.8) 01/15/21 05:22 Lymph # (Auto) 0.7 K/mm3 (1.2-5.4) L 01/15/21 05:22 [place] # (Auto) 0.6 K/mm3 (0.0-0.8) 01/15/21 05:22 Eos # (Auto) 0.0 K/mm3 (0.0-0.4) 01/15/21 05:22 Baso # (Auto) 0.0 K/mm3 (0.0-0.1) 01/15/21 05:22 Seg Neutrophils % 88.2 % (40.0-70.0) H 01/15/21 05:22 Seg Neutrophils # 9.8 K/mm3 (1.8-7.7) H 01/15/21 05:22 PT 15.2 Sec. (12.2-14.9) H 01/22/21 04:20 INR 1.15 (0.87-1.13) H 01/22/21 04:20 ABG pH 7.509 (7.320-7.450) H 01/26/21 05:00 POC ABG pCO2 35.8 mmHg (32.0-48.0) 01/26/21 05:00 ABG pCO2 39.5 mm Hg 01/22/21 04:00 POC ABG pO2 87.7 mmHg (83-108) 01/26/21 05:00 ABG pO2 118.8 mm Hg (80.0-90.0) H 01/22/21 04:00 POC ABG HCO3 27.9 01/26/21 05:00 ABG HCO3 24.5 mmol/L (20.0-26.0) 01/22/21 04:00 ABG O2 Saturation 97.1 (0-100) 01/26/21 05:00 ABG O2 Content 13.2 (0.0-44) 01/22/21 04:00 POC ABG Base Excess 4.6 01/26/21 05:00 ABG Base Excess -0.1 mmol/L (-2.0-3.0) 01/22/21 04:00 ABG Hemoglobin 8.7 (12.0-17.5) L 01/26/21 05:00 ABG Oxyhemoglobin 95.2 (94-98) 01/26/21 05:00 ABG Carboxyhemoglobin 1.5 % (0.0-5.0) 01/22/21 04:00 ABG Methemoglobin 0.3 (0.0-1.5) 01/26/21 05:00 ABG Sodium 130.9 mmol/L (136.0-145.0) L 01/26/21 05:00 ABG Potassium 5.5 mmol/L (3.40-4.50) H 01/26/21 05:00 ABG Chloride 98.0 mmol/L (98-107) 01/26/21 05:00 ABG Glucose 219 mg/dL (65-95) H 01/26/21 05:00 Oxyhemoglobin 96.5 % (95.0-99.0) 01/22/21 04:00 Carboxyhemoglobin 1.7 (0.5-1.5) H 01/26/21 05:00 FiO2 35 % 01/22/21 04:00 FiO2 % 25.0 01/26/21 05:00 Sodium 133 mmol/L (137-145) L 01/26/21 06:47 Potassium 5.6 mmol/L (3.6-5.0) H D 01/26/21 06:47 Chloride 94.5 mmol/L (98-107) L 01/26/21 06:47 Carbon Dioxide 28 mmol/L (22-30) 01/26/21 06:47 Anion Gap 16 mmol/L 01/26/21 06:47 BUN 73 mg/dL (9-20) H 01/26/21 06:47 Creatinine 3.6 mg/dL (0.8-1.3) H 01/26/21 06:47 Estimated GFR 20 ml/min 01/26/21 06:47 BUN/Creatinine Ratio 20 % 01/26/21 06:47 Glucose 245 mg/dL (75-100) H 01/26/21 06:47 POC Glucose 179 mg/dL (70-105) H 01/26/21 05:21 Calcium 8.5 mg/dL (8.4-10.2) 01/26/21 06:47 Phosphorus 2.20 mg/dL (2.5-4.5) L 01/25/21 06:02 Magnesium 2.00 mg/dL (1.7-2.3) 01/22/21 04:20 Total Bilirubin 0.20 mg/dL (0.1-1.2) 01/22/21 04:20 Direct Bilirubin < 0.2 mg/dL (0-0.2) 01/12/21 14:36 Indirect Bilirubin 0.1 mg/dL 01/12/21 14:36 AST 37 units/L (5-40) 01/22/21 04:20 ALT 23 units/L (7-56) 01/22/21 04:20 Alkaline Phosphatase 108 units/L (35-129) 01/22/21 04:20 Ammonia 19.0 umol/L (25-60) L 01/22/21 04:20 Total Protein 5.2 g/dL (6.3-8.2) L 01/22/21 04:20 Albumin 1.9 g/dL (3.9-5) L 01/22/21 04:20 Albumin/Globulin Ratio 0.6 % 01/22/21 04:20 TSH 4.730 mlU/mL (0.270-4.200) H 01/22/21 04:20 Arterial Blood Glucose 219 mg/dL (65-95) H 01/26/21 05:00 Arterial Blood Ionized Calcium 4.3 mg/dL (4.6-5.3) L 01/26/21 05:00 Nasal Screen MRSA (PCR) Positive (Negative) 01/13/21 Unknown Urine Opiates Screen Negative 01/18/21 14:25 Urine Methadone Screen Negative 01/18/21 14:25 Ur Barbiturates Screen Negative 01/18/21 14:25 Phenytoin 6.5 ug/mL (10.0-20.0) L 01/16/21 09:15 Valproic Acid 48.4 ug/mL (50-100) L 01/20/21 14:49 Ur Phencyclidine Scrn Negative 01/18/21 14:25 Ur Amphetamines Screen Negative 01/18/21 14:25 U Benzodiazepines Scrn Presumptive positive 01/18/21 14:25 Urine Cocaine Screen Negative 01/18/21 14:25 U Marijuana (THC) Screen Negative 01/18/21 14:25 Drugs of Abuse Note Disclamer 01/18/21 14:25 Coronavirus (PCR) Negative (Negative) 01/15/21 08:00 Hepatitis A IgM Ab Non-reactive (NonReactive) 01/15/21 09:15 Hep Bs Antigen Non-reactive (Negative) 01/15/21 09:15 Hep B Core IgM Ab Non-reactive (NonReactive) 01/15/21 09:15 Hepatitis C Antibody Non-reactive (NonReactive) 01/15/21 09:15 [place]/IV: Voiding Method Incontinent Active Medications - Current Medications Current Medications: Generic Name Dose Route Start Last Admin Trade Name Freq PRN Reason Stop Dose Admin Acetaminophen 650 mg 01/12/21 19:30 Acetaminophen 325 Mg Tab PO Q4H PRN Pain MILD(1-3)/Fever >100.5/ABEL Albuterol 2.5 mg 01/12/21 19:30 Albuterol 2.5 Mg/3 Ml Nebu IH Q4HRT PRN Shortness Of Breath Lipase/Protease/Amylase 1 each 01/13/21 10:11 Lipase 10,500/Protease 25,000/Amylase 43,750 (Units) Dr Silveira FEEDTUBE PRN PRN For Clogged Feeding Tube Atorvastatin Calcium 40 mg 01/12/21 22:00 01/25/21 21:48 Atorvastatin 40 Mg Tab PO 40 mg QHS NOLAN Administration Calcitriol 1 mcg 01/13/21 10:00 01/26/21 09:27 Calcitriol 0.5 Mcg Cap PO 1 mcg QDAY NOLAN Administration Docusate Sodium 100 mg 01/17/21 09:00 Docusate Sodium 100 Mg/10 Ml Oral Liqd PO BID PRN Constipation Doxazosin Mesylate 2 mg 01/18/21 10:00 01/26/21 09:27 Doxazosin 1 Mg Tab PO 2 mg QDAY NOLAN Administration Hydrophilic Ointment 1 applic 01/15/21 17:14 Lip Therapy Vaseline TP Q2HR PRN Dry Lips Sodium Chloride 100 mls @ 999 mls/hr 01/15/21 08:00 Nacl 0.9% IV DIONNA PRN Hypotension Insulin Glargine 5 units 01/25/21 22:00 01/25/21 21:48 Insulin Glargine 100 Units/Ml SUB-Q 5 units QHS NOLAN Administration Insulin Human Lispro 0 unit 01/16/21 00:00 01/26/21 06:43 Insulin Lispro 100 Unit/Ml SUB-Q 3 unit Q6HR NOLAN Administration Protocol Lansoprazole 30 mg 01/12/21 22:00 01/26/21 09:28 Lansoprazole 30 Mg Solutab FEEDTUBE 30 mg BID NOLAN Administration Levetiracetam 250 mg 01/23/21 22:00 01/25/21 21:48 Levetiracetam 500 Mg/5 Ml Oral Liqd PO 250 mg QHS NOLAN Administration Linagliptin 5 mg 01/13/21 11:00 01/26/21 09:28 Linagliptin 5 Mg Tab PO 5 mg QDDIAB NOLAN Administration Multi-Ingred Cream/Lotion/Oil/Oint 1 applic 01/15/21 17:14 Mineral Oil/Petrolatum, White Ophth Oint 3.5 Gm OU Q4HR PRN Dry Eye(s) Potassium Phos/Sodium Phos 1 each 01/25/21 09:00 01/26/21 06:43 Phos-Nak Powder Packet PO 1 each Q8HR NOLAN Administration Senna 17.2 mg 01/25/21 10:00 01/26/21 05:51 Sennosides 8.6 Mg Tab PO 17.2 mg Q8H NOLAN Administration Simple Syrup 15 ml 01/13/21 10:11 01/18/21 06:54 Simple Syrup 15 Ml FEEDTUBE 15 ml PRN PRN Administration Hypoglycemia Simple Syrup 30 ml 01/13/21 10:11 Simple Syrup 15 Ml FEEDTUBE PRN PRN Hypoglycemia Sodium Bicarbonate 325 mg 01/13/21 10:11 01/24/21 21:24 Sodium Bicarbonate 325 Mg Tab FEEDTUBE 325 mg PRN PRN Administration For Clogged Feeding Tube Sodium Chloride 10 ml 01/12/21 22:00 01/26/21 09:28 Sodium Chloride 0.9% 10 Ml Flush Syringe IV 10 ml BID NOLAN Administration Timolol Maleate 1 drops 01/17/21 10:00 01/26/21 09:28 Timolol 0.5% Ophth Soln 5 Ml OU 1 drops QDAY NOLAN Administration Nutrition/Malnutrition Assess - Dietary Evaluation Nutrition/Malnutrition Findings: Nutrition Notes Start: 01/13/21 10:03 Freq: Status: Active Protocol: Document 01/23/21 14:52 NANCY (Rec: 01/23/21 14:58 NANCY [id number]) Nutrition Notes Initial or Follow up Reassessment Current Diagnosis CKD (stage V CKD),Diabetes, Hypertension Other Pertinent Diagnosis Chronic seizure d/o Current Diet TF - Osmolite 1.5 at 50ml/hr Labs/Tests BUN 53 Cr 3.1 Na 135 Phos 3.7 (01/22) BG 187 POC Glu range on 01/21: 134-203 POC Glu range on 01/22: 151-295 Pertinent Medications Humalog Height 5 ft 9 in Weight 56.1 kg [place] Body Weight (kg) 72.72 BMI 18.2 Weight Status Underweight Subjective/Other Information Pt remains on vent support. Per RN, pt tolerating TF at goal rate. Percent of energy/protein needs met: 100% energy and pro Burn Absent Trauma Absent #2 Nutrition Diagnosis Increased nutrient needs ( specify in comment below) Diagnosis Progress(for reassessment Continues documentation) #1 Nutrition Diagnosis Inadequate oral intake Diagnosis Progress(for reassessment Continues documentation) Is patient on ventilator? Yes Is Patient Ambulatory and/or Out of Bed No REE-([facility]-confined to bed) 1508.844 Kcal/Kg value to use for calculation 35 Approximate Energy Requirements Using 1964 kcal/Kg Calculation Used for Recommendations Kcal/kg Additional Notes Pro needs >1.2g/kg: >67g/day Fluid needs 1-1.5L/day Nutrition Intervention Nutrition Support: Continue Osmolite 1.5 at 50ml/ hr with 150ml water flush q4h. Provides 2200mg K, 1200mg Phos , 1680mg Na. Kcal 1,800 Protein (gm) 75 Carbohydrates (gm) 244 Fat (gm) 59 Fluid (mL) 914 Fiber (gm) 0 Goal #1 TF tolerance Goal #2 TF to meet 100% energy and pro needs Goal #3 Wt maintenance and/or gain Follow-Up By: 01/29/21 Additional Comments F/U: stable TF, BG labs, vent status
--- NOTE | 2021-01-26 11:18 | Progress Note ---
Assessment and Plan 1.ESRD: Patient is on maintenance hemodialysis three times a week, TTS schedule. Last outpatient HD 01/12/2021. Meds dosage based on GFR. Hemodialysis: 01/15, 01/16, 01/17(UF), 01/18, 01/22, 01/24. 2. FEN: Hyperkalemia, HD today. Volume overload, UF with HD. Hyponatremia, improved, monitor. Monitor lytes and volume status. 3. Acute resp failure: Currently intubated, on vent. Extubated 01/17. Re-intubated 01/17. Wean as tolerated. 4. Shock: Off pressors. Monitor. 5. New onset of possible witnessed seizure during dialysis: CT brain remarkable for white matter changes. MRI brain: small SDH, chronic changes. On Keppra. Seizure precaution. Seen by Neuro. 6. Advanced dementia: CT white matter changes. 7. Failure to thrive: PEG tube. 8. Anemia, POA: Epogen with HD. 9. DM type 2. 10. Acute metabolic encephalopathy: Followed by Neuro. Subjective: Patient was seen and examined at the bedside. Examination: General appearance: well-developed, appears stated age, no distress, intubated, on vent, FiO2 25% HEENT: ATNC, pupils equal Neck: Trachea midline Respiratory: ctab Cardiology: regular, S1S2, no murmur Abdomen: soft, not tender, BS heard, Peg tube noted Integumentary: warm, dry, no obvious rash Neurologic: not responding Ext: trace dependent edema noted Hemodialysis catheter: R IJ tunnel catheter Subjective Date of service: 01/26/21 Principal diagnosis: witnessed seizure hx of ESRD ,hyponatremia Objective - Vital Signs Vital signs: Vital Signs - 12hr 01/25/21 01/25/21 01/25/21 23:20 23:30 23:38 Temperature 99.1 F Pulse Rate 89 88 Respiratory 18 22 Rate Blood Pressure 147/70 150/70 O2 Sat by Pulse 100 100 Oximetry 01/25/21 01/25/21 01/25/21 23:40 23:46 23:50 Temperature Pulse Rate 90 88 89 Respiratory 21 19 21 Rate Blood Pressure 150/70 150/70 150/70 O2 Sat by Pulse 100 100 100 Oximetry 01/25/21 01/26/21 01/26/21 23:59 00:00 00:10 Temperature Pulse Rate 87 88 86 Respiratory 19 13 Rate Blood Pressure 150/70 151/66 151/66 O2 Sat by Pulse 100 100 100 Oximetry 01/26/21 01/26/21 01/26/21 00:20 00:30 00:40 Temperature Pulse Rate 88 88 89 Respiratory 14 21 22 Rate Blood Pressure 151/66 161/71 161/71 O2 Sat by Pulse 100 100 100 Oximetry 01/26/21 01/26/21 01/26/21 00:50 01:00 01:10 Temperature Pulse Rate 88 86 85 Respiratory 21 19 19 Rate Blood Pressure 161/71 152/68 152/68 O2 Sat by Pulse 100 100 100 Oximetry 01/26/21 01/26/21 01/26/21 01:20 01:30 01:40 Temperature Pulse Rate 87 86 88 Respiratory 22 16 15 Rate Blood Pressure 152/68 155/70 155/70 O2 Sat by Pulse 100 100 100 Oximetry 01/26/21 01/26/21 01/26/21 01:50 02:00 02:10 Temperature Pulse Rate 87 86 88 Respiratory 22 16 22 Rate Blood Pressure 155/70 155/67 155/67 O2 Sat by Pulse 100 100 100 Oximetry 01/26/21 01/26/21 01/26/21 02:20 02:30 02:40 Temperature Pulse Rate 87 86 87 Respiratory 22 20 18 Rate Blood Pressure 155/67 151/65 151/65 O2 Sat by Pulse 100 100 100 Oximetry 01/26/21 01/26/21 01/26/21 02:50 03:00 03:10 Temperature Pulse Rate 87 87 87 Respiratory 17 25 H 17 Rate Blood Pressure 151/65 151/65 150/68 O2 Sat by Pulse 100 100 100 Oximetry 01/26/21 01/26/21 01/26/21 03:17 03:20 03:30 Temperature 97.9 F Pulse Rate 88 87 Respiratory 19 18 Rate Blood Pressure 150/68 153/70 O2 Sat by Pulse 100 100 Oximetry 01/26/21 01/26/21 01/26/21 03:40 03:50 04:00 Temperature Pulse Rate 88 86 87 Respiratory 24 19 20 Rate Blood Pressure 153/70 153/70 150/70 O2 Sat by Pulse 100 100 100 Oximetry 01/26/21 01/26/21 01/26/21 04:10 04:20 04:30 Temperature Pulse Rate 88 85 86 Respiratory 24 16 13 Rate Blood Pressure 150/70 150/70 154/71 O2 Sat by Pulse 100 100 100 Oximetry 01/26/21 01/26/21 01/26/21 04:40 04:45 04:50 Temperature Pulse Rate 86 88 89 Respiratory 15 20 Rate Blood Pressure 154/71 154/71 154/71 O2 Sat by Pulse 100 100 100 Oximetry 01/26/21 01/26/21 01/26/21 05:00 05:10 05:20 Temperature Pulse Rate 87 87 88 Respiratory 20 23 18 Rate Blood Pressure 161/72 161/72 161/72 O2 Sat by Pulse 100 100 100 Oximetry 01/26/21 01/26/21 01/26/21 05:30 05:40 05:50 Temperature Pulse Rate 87 86 86 Respiratory 20 19 21 Rate Blood Pressure 155/73 155/73 155/73 O2 Sat by Pulse 100 100 100 Oximetry 01/26/21 01/26/21 01/26/21 06:00 06:10 06:20 Temperature Pulse Rate 86 84 84 Respiratory 17 15 13 Rate Blood Pressure 157/70 157/70 157/70 O2 Sat by Pulse 100 100 100 Oximetry 01/26/21 01/26/21 01/26/21 06:30 06:40 06:50 Temperature Pulse Rate 88 91 H 89 Respiratory 17 24 21 Rate Blood Pressure 158/69 158/69 158/69 O2 Sat by Pulse 100 100 100 Oximetry 01/26/21 01/26/21 01/26/21 07:00 07:10 07:20 Temperature Pulse Rate 85 87 85 Respiratory 20 17 13 Rate Blood Pressure 166/74 166/74 166/74 O2 Sat by Pulse 100 100 100 Oximetry 01/26/21 01/26/21 01/26/21 07:23 07:30 07:40 Temperature Pulse Rate 86 84 85 Respiratory 24 16 Rate Blood Pressure 166/74 167/84 167/84 O2 Sat by Pulse 100 100 100 Oximetry 01/26/21 01/26/21 01/26/21 07:50 08:00 08:10 Temperature 97.7 F Pulse Rate 85 85 86 Respiratory 19 19 18 Rate Blood Pressure 167/84 155/75 155/75 O2 Sat by Pulse 100 100 100 Oximetry 01/26/21 01/26/21 01/26/21 08:20 08:30 08:40 Temperature Pulse Rate 84 85 84 Respiratory 15 17 17 Rate Blood Pressure 155/75 147/72 147/72 O2 Sat by Pulse 100 100 100 Oximetry 01/26/21 01/26/21 01/26/21 08:50 09:00 09:27 Temperature Pulse Rate 87 85 84 Respiratory 21 16 Rate Blood Pressure 147/72 159/75 159/75 O2 Sat by Pulse 100 100 Oximetry 01/26/21 11:02 Temperature Pulse Rate 83 Respiratory Rate Blood Pressure 156/74 O2 Sat by Pulse 100 Oximetry - Lab 01/26/21 06:47 01/26/21 06:47 Most recent lab results ABG pH 7.509 (7.320-7.450) H 01/26/21 05:00 ABG pCO2 39.5 mm Hg 01/22/21 04:00 ABG pO2 118.8 mm Hg (80.0-90.0) H 01/22/21 04:00 ABG HCO3 24.5 mmol/L (20.0-26.0) 01/22/21 04:00 ABG O2 Saturation 97.1 (0-100) 01/26/21 05:00 Calcium 8.5 mg/dL (8.4-10.2) 01/26/21 06:47 Phosphorus 2.20 mg/dL (2.5-4.5) L 01/25/21 06:02 Magnesium 2.00 mg/dL (1.7-2.3) 01/22/21 04:20 Medications & Allergies - Medications Allergies/Adverse Reactions: Allergies No Known Allergies Allergy (Verified 08/14/19 16:11) Home Medications: Home Medications Medication Instructions Recorded Confirmed Last Taken Type Alogliptin Benzoate [Alogliptin] 1 tab PO DAILY 10/02/20 01/23/21 Unknown History AtorvaSTATin [Lipitor] 40 mg PO QHS #30 10/11/20 01/23/21 Unknown Rx Doxazosin [Cardura] 4 mg PO QDAY #30 10/11/20 01/23/21 Unknown Rx Febuxostat 40 mg PO QDAY #30 10/11/20 01/23/21 Unknown Rx Ketotifen Fumarate 1 drop OU QDAY #1 bottle 10/11/20 01/23/21 Unknown Rx Lansoprazole Solutab [Prevacid 30 mg FEEDTUBE BID #60 tab.rapdis 10/11/20 01/23/21 Unknown Rx Solutab] Megestrol Acetate 40 mg PO QDAY #30 10/11/20 01/23/21 Unknown Rx Metoprolol [Lopressor TAB] 12.5 mg PO BID #60 tablet 10/11/20 01/23/21 Unknown Rx calcitrioL [Rocaltrol] 1 mcg PO QDAY #30 cap 10/11/20 01/23/21 Unknown Rx timoloL maleate [Timolol Maleate 1 drop OP BID #1 bottle 10/11/20 01/23/21 Unknown Rx 0.25%] Insulin Lispro [Humalog] 0 units SUB-Q QID 01/23/21 01/23/21 Unknown History Active Medications: Generic Name Dose Route Start Last Admin Trade Name Freq PRN Reason Stop Dose Admin Acetaminophen 650 mg 01/12/21 19:30 Acetaminophen 325 Mg Tab PO Q4H PRN Pain MILD(1-3)/Fever >100.5/ABEL Albuterol 2.5 mg 01/12/21 19:30 Albuterol 2.5 Mg/3 Ml Nebu IH Q4HRT PRN Shortness Of Breath Lipase/Protease/Amylase 1 each 01/13/21 10:11 Lipase 10,500/Protease 25,000/Amylase 43,750 (Units) Dr Silveira FEEDTUBE PRN PRN For Clogged Feeding Tube Atorvastatin Calcium 40 mg 01/12/21 22:00 01/25/21 21:48 Atorvastatin 40 Mg Tab PO 40 mg QHS NOLAN Administration Calcitriol 1 mcg 01/13/21 10:00 01/26/21 09:27 Calcitriol 0.5 Mcg Cap PO 1 mcg QDAY NOLAN Administration Docusate Sodium 100 mg 01/17/21 09:00 Docusate Sodium 100 Mg/10 Ml Oral Liqd PO BID PRN Constipation Doxazosin Mesylate 2 mg 01/18/21 10:00 01/26/21 09:27 Doxazosin 1 Mg Tab PO 2 mg QDAY NOLAN Administration Hydrophilic Ointment 1 applic 01/15/21 17:14 Lip Therapy Vaseline TP Q2HR PRN Dry Lips Sodium Chloride 100 mls @ 999 mls/hr 01/15/21 08:00 Nacl 0.9% IV DIONNA PRN Hypotension Insulin Glargine 5 units 01/25/21 22:00 01/25/21 21:48 Insulin Glargine 100 Units/Ml SUB-Q 5 units QHS NOLAN Administration Insulin Human Lispro 0 unit 01/16/21 00:00 01/26/21 06:43 Insulin Lispro 100 Unit/Ml SUB-Q 3 unit Q6HR NOLAN Administration Protocol Lansoprazole 30 mg 01/12/21 22:00 01/26/21 09:28 Lansoprazole 30 Mg Solutab FEEDTUBE 30 mg BID NOLAN Administration Levetiracetam 250 mg 01/23/21 22:00 01/25/21 21:48 Levetiracetam 500 Mg/5 Ml Oral Liqd PO 250 mg QHS NOLAN Administration Linagliptin 5 mg 01/13/21 11:00 01/26/21 09:28 Linagliptin 5 Mg Tab PO 5 mg QDDIAB NOLAN Administration Multi-Ingred Cream/Lotion/Oil/Oint 1 applic 01/15/21 17:14 Mineral Oil/Petrolatum, White Ophth Oint 3.5 Gm OU Q4HR PRN Dry Eye(s) Potassium Phos/Sodium Phos 1 each 01/25/21 09:00 01/26/21 06:43 Phos-Nak Powder Packet PO 1 each Q8HR NOLAN Administration Senna 17.2 mg 01/25/21 10:00 01/26/21 05:51 Sennosides 8.6 Mg Tab PO 17.2 mg Q8H NOLAN Administration Simple Syrup 15 ml 01/13/21 10:11 01/18/21 06:54 Simple Syrup 15 Ml FEEDTUBE 15 ml PRN PRN Administration Hypoglycemia Simple Syrup 30 ml 01/13/21 10:11 Simple Syrup 15 Ml FEEDTUBE PRN PRN Hypoglycemia Sodium Bicarbonate 325 mg 01/13/21 10:11 01/24/21 21:24 Sodium Bicarbonate 325 Mg Tab FEEDTUBE 325 mg PRN PRN Administration For Clogged Feeding Tube Sodium Chloride 10 ml 01/12/21 22:00 01/26/21 09:28 Sodium Chloride 0.9% 10 Ml Flush Syringe IV 10 ml BID NOLAN Administration Timolol Maleate 1 drops 01/17/21 10:00 01/26/21 09:28 Timolol 0.5% Ophth Soln 5 Ml OU 1 drops QDAY NOLAN Administration
[2021-01-26] MEDS ORDERED: SODIUM CHLORIDE 0.9% 100 ML IV PRN (12:29)
--- NOTE | 2021-01-26 15:53 | Progress Note ---
Assessment and Plan Initialization Date: 01/25/21 11:13 Assessment and Plan 80 y/o with chronic seizure disorder, ESRD, HTN admitted with status epilepticus, requiring intubation for burst suppression. 01/26/2021: No new changes continue with the current vent setting. Currently being evaluated for possible tracheostomy next week. No changes made in a vent setting today. 01/25/21: Appreciate surgery eval on yesterday. Await anesthesia eval and discussion with family. Will restart tube feeds, add bowel regimen and give laxative today. Failed PSV again today as he was having periods of apnea. Guarded to poor prognosis. 01/24/21: Consult Dr. Guerrero for trach, patient already has peg. Continue supportive measures. Guarded to poor prognosis. 01/23/21: Long discussion with family over the phone at bedside. They had several questions about trach and weaning. Answered all questions as best as possible. Family going to discuss again today and will let us known tomorrow. Continue supportive measures. Guarded to poor prognosis. 01/22/21: Will discuss on rounds today the possibility of cutting back more on anti-epileptic meds to see if this helps with his mental state. Will reach out to family today to discuss next options and goals of care. He is currently not a candidate for extubation and may need trach and peg. Will call with CM. Continue daily PSV trials. 01/21/21: FiO2 now down to 30%. RT to attempt PSV today to see how patient tolerates. Not a candidate for extubation given his current mental state. Neuro did decrease meds more on yesterday Keppra daily and BID Valproic Acid. Will call family to update on current level of care. Overall prognosis remains guarded to poor. Will get Head CT today to rule out any new areas of ischemia or bleeding. 01/20/21: FiO2 stable on 45%. Hold on repeat Imaging for now. Will hold on Flumazenil therapy given his prior history of seizure. May need more HD tomorrow. Spoke with Daughter and over the phone to update and they asked me to call them again tomorrow. Will tell them that visiting hours are present if they choose to come. Guarded prognosis. 01/19/21: Dropped FiO2 to 45%. Await neurology eval today but need to consider repeat imaging of head as I have not explanation as to why patient is not responsive. Patient does not make any urine so not able to send UDS. Had HD on yesterday so next one would likely be Thursday. Renal to address electrolytes. Very very guarded prognosis. 01/18/21: EEG not officially read, but prelim is negative for seizures, just diffuse slowing. ABG is stable, not hypercapnic. Will send UDS to see if benzos are still in system. spoke with renal who will do HD today and manage electrolytes. DId order mag level given low levels of potassium. Overall prog nosis is very guarded to poor. If not more responsive tomorrow, may need to consider repeat imaging of head/brain. 01/17/21: Extubate. HD today per renal. If tolerates both, transfer back to floor on new anti-epileptic regimen 1. Continue Versed at 3mg IV per Hour for the next 24 hours. 2. Repeat EEG tomorrow off Versed. 3. Will attempt to get this before HD tomorrow. 4. HD per renal, tomorrow as patient got HD yesterday Total critical care time 31-minute Subjective Date of service: 01/26/21 Principal diagnosis: witnessed seizure hx of ESRD ,hyponatremia Interval history: No significant change remain kind of unresponsive occasionally open eyes. Remains intubated on mechanical ventilator with minimal support. Failed weaning. Objective Vital Signs - 12hr 01/26/21 01/26/21 01/26/21 04:00 04:10 04:20 Temperature Pulse Rate 87 88 85 Respiratory 20 24 16 Rate Blood Pressure 150/70 150/70 150/70 O2 Sat by Pulse 100 100 100 Oximetry 01/26/21 01/26/21 01/26/21 04:30 04:40 04:45 Temperature Pulse Rate 86 86 88 Respiratory 13 15 Rate Blood Pressure 154/71 154/71 154/71 O2 Sat by Pulse 100 100 100 Oximetry 01/26/21 01/26/21 01/26/21 04:50 05:00 05:10 Temperature Pulse Rate 89 87 87 Respiratory 20 20 23 Rate Blood Pressure 154/71 161/72 161/72 O2 Sat by Pulse 100 100 100 Oximetry 01/26/21 01/26/21 01/26/21 05:20 05:30 05:40 Temperature Pulse Rate 88 87 86 Respiratory 18 20 19 Rate Blood Pressure 161/72 155/73 155/73 O2 Sat by Pulse 100 100 100 Oximetry 01/26/21 01/26/21 01/26/21 05:50 06:00 06:10 Temperature Pulse Rate 86 86 84 Respiratory 21 17 15 Rate Blood Pressure 155/73 157/70 157/70 O2 Sat by Pulse 100 100 100 Oximetry 01/26/21 01/26/21 01/26/21 06:20 06:30 06:40 Temperature Pulse Rate 84 88 91 H Respiratory 13 17 24 Rate Blood Pressure 157/70 158/69 158/69 O2 Sat by Pulse 100 100 100 Oximetry 01/26/21 01/26/21 01/26/21 06:50 07:00 07:10 Temperature Pulse Rate 89 85 87 Respiratory 21 20 17 Rate Blood Pressure 158/69 166/74 166/74 O2 Sat by Pulse 100 100 100 Oximetry 01/26/21 01/26/21 01/26/21 07:20 07:23 07:30 Temperature Pulse Rate 85 86 84 Respiratory 13 24 Rate Blood Pressure 166/74 166/74 167/84 O2 Sat by Pulse 100 100 100 Oximetry 01/26/21 01/26/21 01/26/21 07:40 07:50 08:00 Temperature 97.7 F Pulse Rate 85 85 85 Respiratory 16 19 19 Rate Blood Pressure 167/84 167/84 155/75 O2 Sat by Pulse 100 100 100 Oximetry 01/26/21 01/26/21 01/26/21 08:10 08:20 08:30 Temperature Pulse Rate 86 84 85 Respiratory 18 15 17 Rate Blood Pressure 155/75 155/75 147/72 O2 Sat by Pulse 100 100 100 Oximetry 01/26/21 01/26/21 01/26/21 08:40 08:50 09:00 Temperature Pulse Rate 84 87 85 Respiratory 17 21 16 Rate Blood Pressure 147/72 147/72 159/75 O2 Sat by Pulse 100 100 100 Oximetry 01/26/21 01/26/21 01/26/21 09:10 09:20 09:27 Temperature Pulse Rate 85 84 84 Respiratory 20 20 Rate Blood Pressure 159/75 159/75 159/75 O2 Sat by Pulse 100 100 Oximetry 01/26/21 01/26/21 01/26/21 09:30 09:40 09:50 Temperature Pulse Rate 83 85 85 Respiratory 14 23 19 Rate Blood Pressure 168/76 159/75 159/75 O2 Sat by Pulse 100 100 100 Oximetry 01/26/21 01/26/21 01/26/21 10:00 10:10 10:20 Temperature Pulse Rate 82 83 83 Respiratory 22 15 19 Rate Blood Pressure 155/74 168/76 168/76 O2 Sat by Pulse 100 100 100 Oximetry 01/26/21 01/26/21 01/26/21 10:30 10:40 10:50 Temperature Pulse Rate 81 81 81 Respiratory 15 18 18 Rate Blood Pressure 152/70 152/70 152/70 O2 Sat by Pulse 100 100 100 Oximetry 01/26/21 01/26/21 01/26/21 11:00 11:02 11:10 Temperature Pulse Rate 82 83 79 Respiratory 18 14 Rate Blood Pressure 152/70 156/74 O2 Sat by Pulse 100 100 100 Oximetry 01/26/21 01/26/21 01/26/21 11:20 11:30 11:40 Temperature Pulse Rate 80 82 81 Respiratory 18 22 16 Rate Blood Pressure 156/74 148/74 148/74 O2 Sat by Pulse 100 100 100 Oximetry 01/26/21 01/26/21 01/26/21 11:50 12:00 12:10 Temperature 98.6 F Pulse Rate 81 81 83 Respiratory 17 15 17 Rate Blood Pressure 148/74 144/74 144/74 O2 Sat by Pulse 100 100 100 Oximetry 01/26/21 01/26/21 01/26/21 12:20 12:30 12:40 Temperature Pulse Rate 82 80 81 Respiratory 13 19 17 Rate Blood Pressure 144/74 141/70 141/70 O2 Sat by Pulse 100 100 100 Oximetry 01/26/21 01/26/21 01/26/21 12:50 13:00 13:10 Temperature Pulse Rate 80 85 79 Respiratory 18 17 17 Rate Blood Pressure 141/70 146/76 146/76 O2 Sat by Pulse 100 100 100 Oximetry 01/26/21 01/26/21 01/26/21 13:20 13:30 13:40 Temperature Pulse Rate 79 82 79 Respiratory 15 15 15 Rate Blood Pressure 146/76 143/71 143/71 O2 Sat by Pulse 100 100 100 Oximetry 01/26/21 01/26/21 13:50 15:08 Temperature Pulse Rate 80 83 Respiratory 19 Rate Blood Pressure 143/71 142/75 O2 Sat by Pulse 100 100 Oximetry Constitutional: no acute distress, comatose (secondary to meds for seizure) ENT: other (orally intubated and sedated) Neck: supple Effort: normal Ascultation: Bilateral: clear Cardiovascular: regular rate and rhythm Gastrointestinal: normoactive bowel sounds Integumentary: normal Extremities: no edema, pulses normal CBC and BMP: 01/26/21 06:47 01/26/21 06:47 ABG, PT/INR, D-dimer: ABG ABG pH 7.509 (7.320-7.450) H 01/26/21 05:00 POC ABG pCO2 35.8 mmHg (32.0-48.0) 01/26/21 05:00 ABG pCO2 39.5 mm Hg 01/22/21 04:00 POC ABG pO2 87.7 mmHg (83-108) 01/26/21 05:00 ABG pO2 118.8 mm Hg (80.0-90.0) H 01/22/21 04:00 POC ABG HCO3 27.9 01/26/21 05:00 ABG O2 Saturation 97.1 (0-100) 01/26/21 05:00 PT/INR, D-dimer PT 15.2 Sec. (12.2-14.9) H 01/22/21 04:20 INR 1.15 (0.87-1.13) H 01/22/21 04:20 Abnormal lab findings: Abnormal Labs 01/12/21 01/12/21 01/12/21 14:12 14:36 14:36 WBC 11.2 H RBC Hgb Hct MCV MCH 27 L RDW 21.0 H Plt Count Lymph % (Auto) Lymph # (Auto) Seg Neutrophils % 79.6 H Seg Neutrophils # 8.9 H PT INR ABG pH POC ABG pCO2 POC ABG pO2 ABG pO2 ABG Hemoglobin ABG Oxyhemoglobin ABG Sodium ABG Potassium ABG Glucose Carboxyhemoglobin Sodium 136 L Potassium Chloride 95.8 L Carbon Dioxide 19 L BUN Creatinine 2.0 H Glucose 163 H POC Glucose 166 H Calcium 8.2 L Phosphorus Ammonia Total Protein 5.4 L Albumin 3.4 L TSH Arterial Blood Glucose Arterial Blood Ionized Calcium Phenytoin Valproic Acid 01/13/21 01/13/21 01/13/21 05:19 12:14 16:16 WBC RBC Hgb Hct MCV MCH RDW Plt Count Lymph % (Auto) Lymph # (Auto) Seg Neutrophils % Seg Neutrophils # PT INR ABG pH POC ABG pCO2 POC ABG pO2 ABG pO2 ABG Hemoglobin ABG Oxyhemoglobin ABG Sodium ABG Potassium ABG Glucose Carboxyhemoglobin Sodium 134 L Potassium Chloride 95.5 L Carbon Dioxide BUN 23 H Creatinine 2.6 H Glucose 168 H POC Glucose 142 H 163 H Calcium Phosphorus Ammonia Total Protein 5.8 L Albumin 3.3 L TSH Arterial Blood Glucose Arterial Blood Ionized Calcium Phenytoin Valproic Acid 01/13/21 01/13/21 01/14/21 20:22 23:57 06:31 WBC RBC Hgb Hct MCV MCH RDW Plt Count Lymph % (Auto) Lymph # (Auto) Seg Neutrophils % Seg Neutrophils # PT INR ABG pH POC ABG pCO2 POC ABG pO2 ABG pO2 ABG Hemoglobin ABG Oxyhemoglobin ABG Sodium ABG Potassium ABG Glucose Carboxyhemoglobin Sodium Potassium Chloride Carbon Dioxide BUN Creatinine Glucose POC Glucose 209 H 189 H 236 H Calcium Phosphorus Ammonia Total Protein Albumin TSH Arterial Blood Glucose Arterial Blood Ionized Calcium Phenytoin Valproic Acid 01/14/21 01/14/21 01/14/21 08:57 08:57 12:22 WBC 12.0 H RBC Hgb 11.3 L Hct 34.5 L MCV MCH RDW 20.6 H Plt Count Lymph % (Auto) 6.4 L Lymph # (Auto) 0.8 L Seg Neutrophils % 87.4 H Seg Neutrophils # 10.5 H PT INR ABG pH POC ABG pCO2 POC ABG pO2 ABG pO2 ABG Hemoglobin ABG Oxyhemoglobin ABG Sodium ABG Potassium ABG Glucose Carboxyhemoglobin Sodium 131 L Potassium Chloride 93.7 L Carbon Dioxide BUN 37 H Creatinine 3.7 H Glucose 261 H POC Glucose 280 H Calcium Phosphorus Ammonia Total Protein Albumin TSH Arterial Blood Glucose Arterial Blood Ionized Calcium Phenytoin Valproic Acid 01/14/21 01/14/21 01/15/21 16:15 22:28 04:43 WBC RBC Hgb Hct MCV MCH RDW Plt Count Lymph % (Auto) Lymph # (Auto) Seg Neutrophils % Seg Neutrophils # PT INR ABG pH POC ABG pCO2 POC ABG pO2 ABG pO2 ABG Hemoglobin ABG Oxyhemoglobin ABG Sodium ABG Potassium ABG Glucose Carboxyhemoglobin Sodium Potassium Chloride Carbon Dioxide BUN Creatinine Glucose POC Glucose 289 H 252 H 243 H Calcium Phosphorus Ammonia Total Protein Albumin TSH Arterial Blood Glucose Arterial Blood Ionized Calcium Phenytoin Valproic Acid 01/15/21 01/15/21 01/15/21 05:22 05:22 08:56 WBC 11.1 H RBC Hgb 11.0 L Hct 33.3 L MCV 83 L MCH 27 L RDW 20.6 H Plt Count Lymph % (Auto) 6.3 L Lymph # (Auto) 0.7 L Seg Neutrophils % 88.2 H Seg Neutrophils # 9.8 H PT INR ABG pH POC ABG pCO2 POC ABG pO2 ABG pO2 ABG Hemoglobin ABG Oxyhemoglobin ABG Sodium ABG Potassium ABG Glucose Carboxyhemoglobin Sodium 130 L Potassium Chloride 92.0 L Carbon Dioxide BUN 49 H Creatinine 4.2 H Glucose 241 H POC Glucose Calcium Phosphorus Ammonia Total Protein Albumin TSH Arterial Blood Glucose Arterial Blood Ionized Calcium Phenytoin Valproic Acid 45.9 L 01/15/21 01/15/21 01/15/21 16:42 18:14 23:10 WBC RBC Hgb Hct MCV MCH RDW Plt Count Lymph % (Auto) Lymph # (Auto) Seg Neutrophils % Seg Neutrophils # PT INR ABG pH 7.463 H POC ABG pCO2 POC ABG pO2 377.4 H ABG pO2 ABG Hemoglobin 11.6 L ABG Oxyhemoglobin 98.6 H ABG Sodium 130.1 L ABG Potassium ABG Glucose 254 H Carboxyhemoglobin Sodium Potassium Chloride Carbon Dioxide BUN Creatinine Glucose POC Glucose 218 H 279 H Calcium Phosphorus Ammonia Total Protein Albumin TSH Arterial Blood Glucose 254 H Arterial Blood Ionized Calcium 4.5 L Phenytoin Valproic Acid 01/16/21 01/16/21 01/16/21 03:10 05:11 05:17 WBC RBC Hgb 10.4 L Hct 31.8 L MCV MCH 27 L RDW 20.3 H Plt Count 132 L Lymph % (Auto) Lymph # (Auto) Seg Neutrophils % Seg Neutrophils # PT INR ABG pH POC ABG pCO2 POC ABG pO2 174.4 H ABG pO2 ABG Hemoglobin 10.3 L ABG Oxyhemoglobin 98.6 H ABG Sodium 129.9 L ABG Potassium 3.2 L ABG Glucose 202 H Carboxyhemoglobin Sodium Potassium Chloride Carbon Dioxide BUN Creatinine Glucose POC Glucose 193 H Calcium Phosphorus Ammonia Total Protein Albumin TSH Arterial Blood Glucose 202 H Arterial Blood Ionized Calcium Phenytoin Valproic Acid 01/16/21 01/16/21 01/16/21 05:17 09:15 11:33 WBC RBC Hgb Hct MCV MCH RDW Plt Count Lymph % (Auto) Lymph # (Auto) Seg Neutrophils % Seg Neutrophils # PT INR ABG pH POC ABG pCO2 POC ABG pO2 ABG pO2 ABG Hemoglobin ABG Oxyhemoglobin ABG Sodium ABG Potassium ABG Glucose Carboxyhemoglobin Sodium Potassium 3.4 L Chloride Carbon Dioxide BUN 36 H Creatinine 3.2 H Glucose 216 H POC Glucose 174 H Calcium 8.3 L Phosphorus 1.10 L Ammonia Total Protein Albumin TSH Arterial Blood Glucose Arterial Blood Ionized Calcium Phenytoin 6.5 L Valproic Acid 01/16/21 01/17/21 01/17/21 18:13 00:10 04:00 WBC RBC Hgb Hct MCV MCH RDW Plt Count Lymph % (Auto) Lymph # (Auto) Seg Neutrophils % Seg Neutrophils # PT INR ABG pH POC ABG pCO2 POC ABG pO2 ABG pO2 ABG Hemoglobin 10.1 L ABG Oxyhemoglobin ABG Sodium 130.1 L ABG Potassium 3.3 L ABG Glucose 153 H Carboxyhemoglobin Sodium Potassium Chloride Carbon Dioxide BUN Creatinine Glucose POC Glucose 162 H 150 H Calcium Phosphorus Ammonia Total Protein Albumin TSH Arterial Blood Glucose 153 H Arterial Blood Ionized Calcium Phenytoin Valproic Acid 01/17/21 01/17/21 01/17/21 05:30 05:48 11:14 WBC RBC Hgb Hct MCV MCH RDW Plt Count Lymph % (Auto) Lymph # (Auto) Seg Neutrophils % Seg Neutrophils # PT INR ABG pH POC ABG pCO2 POC ABG pO2 ABG pO2 ABG Hemoglobin ABG Oxyhemoglobin ABG Sodium ABG Potassium ABG Glucose Carboxyhemoglobin Sodium 136 L Potassium 3.5 L Chloride Carbon Dioxide BUN 48 H Creatinine 3.5 H Glucose 165 H POC Glucose 149 H Calcium 8.0 L Phosphorus 0.80 L* D Ammonia 22.0 L Total Protein Albumin TSH Arterial Blood Glucose Arterial Blood Ionized Calcium Phenytoin Valproic Acid 01/17/21 01/17/21 01/17/21 11:43 17:34 18:46 WBC RBC Hgb Hct MCV MCH RDW Plt Count Lymph % (Auto) Lymph # (Auto) Seg Neutrophils % Seg Neutrophils # PT INR ABG pH POC ABG pCO2 POC ABG pO2 ABG pO2 ABG Hemoglobin ABG Oxyhemoglobin ABG Sodium ABG Potassium ABG Glucose Carboxyhemoglobin Sodium Potassium Chloride Carbon Dioxide BUN Creatinine Glucose POC Glucose 160 H 209 H Calcium Phosphorus 2.20 L D Ammonia Total Protein Albumin TSH Arterial Blood Glucose Arterial Blood Ionized Calcium Phenytoin Valproic Acid 01/17/21 01/17/21 01/18/21 19:00 23:19 03:28 WBC RBC Hgb Hct MCV MCH RDW Plt Count Lymph % (Auto) Lymph # (Auto) Seg Neutrophils % Seg Neutrophils # PT INR ABG pH POC ABG pCO2 POC ABG pO2 190.2 H ABG pO2 ABG Hemoglobin 11.9 L ABG Oxyhemoglobin 98.5 H ABG Sodium 130.9 L 131.0 L ABG Potassium 3.0 L 2.8 L ABG Glucose 241 H Carboxyhemoglobin Sodium Potassium Chloride Carbon Dioxide BUN Creatinine Glucose POC Glucose 222 H Calcium Phosphorus Ammonia Total Protein Albumin TSH Arterial Blood Glucose 241 H Arterial Blood Ionized Calcium 4.5 L Phenytoin Valproic Acid 01/18/21 01/18/21 01/18/21 04:16 06:20 10:20 WBC 14.1 H RBC Hgb 11.2 L Hct 34.5 L MCV 83 L MCH 27 L RDW 20.8 H Plt Count 116 L Lymph % (Auto) Lymph # (Auto) Seg Neutrophils % Seg Neutrophils # PT INR ABG pH POC ABG pCO2 POC ABG pO2 ABG pO2 ABG Hemoglobin ABG Oxyhemoglobin ABG Sodium ABG Potassium ABG Glucose Carboxyhemoglobin Sodium 134 L Potassium 2.9 L* Chloride Carbon Dioxide 21 L BUN 60 H Creatinine 3.9 H Glucose POC Glucose 69 L Calcium Phosphorus 1.60 L D Ammonia Total Protein Albumin TSH Arterial Blood Glucose Arterial Blood Ionized Calcium Phenytoin Valproic Acid 01/18/21 01/18/21 01/18/21 11:29 15:30 17:23 WBC RBC Hgb Hct MCV MCH RDW Plt Count Lymph % (Auto) Lymph # (Auto) Seg Neutrophils % Seg Neutrophils # PT INR ABG pH POC ABG pCO2 POC ABG pO2 ABG pO2 ABG Hemoglobin ABG Oxyhemoglobin ABG Sodium ABG Potassium ABG Glucose Carboxyhemoglobin Sodium Potassium 3.3 L Chloride Carbon Dioxide BUN 42 H Creatinine 3.1 H Glucose 190 H POC Glucose 128 H 167 H Calcium 8.2 L Phosphorus 1.10 L D Ammonia Total Protein Albumin TSH Arterial Blood Glucose Arterial Blood Ionized Calcium Phenytoin Valproic Acid 01/18/21 01/19/2121 23:43 03:43 04:38 WBC RBC Hgb Hct MCV MCH RDW Plt Count Lymph % (Auto) Lymph # (Auto) Seg Neutrophils % Seg Neutrophils # PT INR ABG pH 7.536 H POC ABG pCO2 27.0 L POC ABG pO2 165.8 H ABG pO2 ABG Hemoglobin 10.7 L ABG Oxyhemoglobin 98.4 H ABG Sodium 131.3 L ABG Potassium ABG Glucose 152 H Carboxyhemoglobin Sodium Potassium Chloride Carbon Dioxide BUN 55 H Creatinine 3.8 H Glucose 143 H POC Glucose 232 H Calcium Phosphorus 1.10 L Ammonia Total Protein Albumin TSH Arterial Blood Glucose 152 H Arterial Blood Ionized Calcium Phenytoin Valproic Acid 01/19/21 01/19/21 01/19/21 05:12 11:36 15:16 WBC RBC Hgb Hct MCV MCH RDW Plt Count Lymph % (Auto) Lymph # (Auto) Seg Neutrophils % Seg Neutrophils # PT INR ABG pH POC ABG pCO2 POC ABG pO2 ABG pO2 ABG Hemoglobin ABG Oxyhemoglobin ABG Sodium ABG Potassium ABG Glucose Carboxyhemoglobin Sodium Potassium Chloride Carbon Dioxide BUN Creatinine Glucose POC Glucose 135 H 201 H Calcium Phosphorus 1.10 L Ammonia Total Protein Albumin TSH Arterial Blood Glucose Arterial Blood Ionized Calcium Phenytoin Valproic Acid 01/19/21 01/19/21 01/20/21 17:55 23:22 04:00 WBC RBC Hgb Hct MCV MCH RDW Plt Count Lymph % (Auto) Lymph # (Auto) Seg Neutrophils % Seg Neutrophils # PT INR ABG pH 7.513 H POC ABG pCO2 POC ABG pO2 ABG pO2 ABG Hemoglobin 9.9 L ABG Oxyhemoglobin ABG Sodium 129.4 L ABG Potassium ABG Glucose 196 H Carboxyhemoglobin Sodium Potassium Chloride Carbon Dioxide BUN Creatinine Glucose POC Glucose 222 H 252 H Calcium Phosphorus Ammonia Total Protein Albumin TSH Arterial Blood Glucose 196 H Arterial Blood Ionized Calcium Phenytoin Valproic Acid 01/20/21 01/20/21 01/20/21 05:15 11:15 14:49 WBC 16.1 H RBC Hgb 9.9 L Hct 30.3 L MCV 82 L MCH 27 L RDW 20.7 H Plt Count 114 L Lymph % (Auto) Lymph # (Auto) Seg Neutrophils % Seg Neutrophils # PT INR ABG pH POC ABG pCO2 POC ABG pO2 ABG pO2 ABG Hemoglobin ABG Oxyhemoglobin ABG Sodium ABG Potassium ABG Glucose Carboxyhemoglobin Sodium Potassium Chloride Carbon Dioxide BUN Creatinine Glucose POC Glucose 163 H 149 H Calcium Phosphorus Ammonia Total Protein Albumin TSH Arterial Blood Glucose Arterial Blood Ionized Calcium Phenytoin Valproic Acid 01/20/21 01/20/21 01/20/21 14:49 14:49 17:12 WBC RBC Hgb Hct MCV MCH RDW Plt Count Lymph % (Auto) Lymph # (Auto) Seg Neutrophils % Seg Neutrophils # PT INR ABG pH POC ABG pCO2 POC ABG pO2 ABG pO2 ABG Hemoglobin ABG Oxyhemoglobin ABG Sodium ABG Potassium ABG Glucose Carboxyhemoglobin Sodium 133 L Potassium Chloride 95.8 L Carbon Dioxide BUN 48 H Creatinine 3.1 H Glucose 167 H POC Glucose 155 H Calcium Phosphorus 0.80 L* D Ammonia Total Protein Albumin TSH Arterial Blood Glucose Arterial Blood Ionized Calcium Phenytoin Valproic Acid 48.4 L 01/21/21 01/21/21 01/21/21 00:55 05:20 06:39 WBC 17.5 H RBC 3.62 L Hgb 9.6 L Hct 29.7 L MCV 82 L MCH 26 L RDW 21.4 H Plt Count 126 L Lymph % (Auto) Lymph # (Auto) Seg Neutrophils % Seg Neutrophils # PT INR ABG pH POC ABG pCO2 POC ABG pO2 ABG pO2 ABG Hemoglobin ABG Oxyhemoglobin ABG Sodium ABG Potassium ABG Glucose Carboxyhemoglobin Sodium Potassium Chloride Carbon Dioxide BUN Creatinine Glucose POC Glucose 134 H 170 H Calcium Phosphorus Ammonia Total Protein Albumin TSH Arterial Blood Glucose Arterial Blood Ionized Calcium Phenytoin Valproic Acid 01/21/21 01/21/21 01/21/21 06:39 11:32 17:41 WBC RBC Hgb Hct MCV MCH RDW Plt Count Lymph % (Auto) Lymph # (Auto) Seg Neutrophils % Seg Neutrophils # PT INR ABG pH POC ABG pCO2 POC ABG pO2 ABG pO2 ABG Hemoglobin ABG Oxyhemoglobin ABG Sodium ABG Potassium ABG Glucose Carboxyhemoglobin Sodium 133 L Potassium Chloride 95.9 L Carbon Dioxide BUN 56 H Creatinine 3.2 H Glucose 159 H POC Glucose 159 H 137 H Calcium Phosphorus 2.30 L D Ammonia Total Protein Albumin TSH Arterial Blood Glucose Arterial Blood Ionized Calcium Phenytoin Valproic Acid 01/21/21 01/22/21 01/22/21 23:48 04:00 04:20 WBC 14.0 H RBC 3.47 L Hgb 9.3 L Hct 28.6 L MCV 83 L MCH 27 L RDW 21.4 H Plt Count 129 L Lymph % (Auto) Lymph # (Auto) Seg Neutrophils % Seg Neutrophils # PT INR ABG pH POC ABG pCO2 POC ABG pO2 ABG pO2 118.8 H ABG Hemoglobin 9.6 L ABG Oxyhemoglobin ABG Sodium ABG Potassium ABG Glucose Carboxyhemoglobin Sodium Potassium Chloride Carbon Dioxide BUN Creatinine Glucose POC Glucose 203 H Calcium Phosphorus Ammonia Total Protein Albumin TSH Arterial Blood Glucose Arterial Blood Ionized Calcium Phenytoin Valproic Acid 01/22/21 01/22/21 01/22/21 04:20 04:20 04:20 WBC RBC Hgb Hct MCV MCH RDW Plt Count Lymph % (Auto) Lymph # (Auto) Seg Neutrophils % Seg Neutrophils # PT INR ABG pH POC ABG pCO2 POC ABG pO2 ABG pO2 ABG Hemoglobin ABG Oxyhemoglobin ABG Sodium ABG Potassium ABG Glucose Carboxyhemoglobin Sodium 131 L Potassium Chloride 92.9 L Carbon Dioxide 21 L BUN 69 H Creatinine 3.9 H Glucose 230 H POC Glucose Calcium 8.1 L Phosphorus Ammonia 19.0 L Total Protein 5.2 L Albumin 1.9 L TSH 4.730 H Arterial Blood Glucose Arterial Blood Ionized Calcium Phenytoin Valproic Acid 01/22/21 01/22/21 01/22/21 04:20 05:14 11:36 WBC RBC Hgb Hct MCV MCH RDW Plt Count Lymph % (Auto) Lymph # (Auto) Seg Neutrophils % Seg Neutrophils # PT 15.2 H INR 1.15 H ABG pH POC ABG pCO2 POC ABG pO2 ABG pO2 ABG Hemoglobin ABG Oxyhemoglobin ABG Sodium ABG Potassium ABG Glucose Carboxyhemoglobin Sodium Potassium Chloride Carbon Dioxide BUN Creatinine Glucose POC Glucose 213 H 151 H Calcium Phosphorus Ammonia Total Protein Albumin TSH Arterial Blood Glucose Arterial Blood Ionized Calcium Phenytoin Valproic Acid 01/22/21 01/23/21 01/23/21 17:47 00:06 04:41 WBC 18.5 H RBC 3.43 L Hgb 9.0 L Hct 28.1 L MCV 82 L MCH 26 L RDW 21.6 H Plt Count Lymph % (Auto) Lymph # (Auto) Seg Neutrophils % Seg Neutrophils # PT INR ABG pH POC ABG pCO2 POC ABG pO2 ABG pO2 ABG Hemoglobin ABG Oxyhemoglobin ABG Sodium ABG Potassium ABG Glucose Carboxyhemoglobin Sodium Potassium Chloride Carbon Dioxide BUN Creatinine Glucose POC Glucose 271 H 295 H Calcium Phosphorus Ammonia Total Protein Albumin TSH Arterial Blood Glucose Arterial Blood Ionized Calcium Phenytoin Valproic Acid 01/23/21 01/23/21 01/23/21 04:41 05:31 11:54 WBC RBC Hgb Hct MCV MCH RDW Plt Count Lymph % (Auto) Lymph # (Auto) Seg Neutrophils % Seg Neutrophils # PT INR ABG pH POC ABG pCO2 POC ABG pO2 ABG pO2 ABG Hemoglobin ABG Oxyhemoglobin ABG Sodium ABG Potassium ABG Glucose Carboxyhemoglobin Sodium 135 L Potassium Chloride Carbon Dioxide BUN 53 H Creatinine 3.1 H Glucose 187 H POC Glucose 183 H 178 H Calcium Phosphorus Ammonia Total Protein Albumin TSH Arterial Blood Glucose Arterial Blood Ionized Calcium Phenytoin Valproic Acid 01/23/21 01/23/21 01/24/21 17:54 23:15 05:27 WBC RBC Hgb Hct MCV MCH RDW Plt Count Lymph % (Auto) Lymph # (Auto) Seg Neutrophils % Seg Neutrophils # PT INR ABG pH POC ABG pCO2 POC ABG pO2 ABG pO2 ABG Hemoglobin ABG Oxyhemoglobin ABG Sodium ABG Potassium ABG Glucose Carboxyhemoglobin Sodium Potassium Chloride Carbon Dioxide BUN Creatinine Glucose POC Glucose 243 H 241 H 298 H Calcium Phosphorus Ammonia Total Protein Albumin TSH Arterial Blood Glucose Arterial Blood Ionized Calcium Phenytoin Valproic Acid 01/24/21 01/24/21 01/24/21 12:00 17:26 23:53 WBC RBC Hgb Hct MCV MCH RDW Plt Count Lymph % (Auto) Lymph # (Auto) Seg Neutrophils % Seg Neutrophils # PT INR ABG pH POC ABG pCO2 POC ABG pO2 ABG pO2 ABG Hemoglobin ABG Oxyhemoglobin ABG Sodium ABG Potassium ABG Glucose Carboxyhemoglobin Sodium Potassium Chloride Carbon Dioxide BUN Creatinine Glucose POC Glucose 259 H 178 H 251 H Calcium Phosphorus Ammonia Total Protein Albumin TSH Arterial Blood Glucose Arterial Blood Ionized Calcium Phenytoin Valproic Acid 01/25/21 01/25/21 01/25/21 04:54 06:02 11:27 WBC RBC Hgb Hct MCV MCH RDW Plt Count Lymph % (Auto) Lymph # (Auto) Seg Neutrophils % Seg Neutrophils # PT INR ABG pH POC ABG pCO2 POC ABG pO2 ABG pO2 ABG Hemoglobin ABG Oxyhemoglobin ABG Sodium ABG Potassium ABG Glucose Carboxyhemoglobin Sodium Potassium Chloride Carbon Dioxide BUN Creatinine Glucose POC Glucose 235 H 209 H Calcium Phosphorus 2.20 L Ammonia Total Protein Albumin TSH Arterial Blood Glucose Arterial Blood Ionized Calcium Phenytoin Valproic Acid 01/25/21 01/25/21 01/26/21 17:32 23:36 05:00 WBC RBC Hgb Hct MCV MCH RDW Plt Count Lymph % (Auto) Lymph # (Auto) Seg Neutrophils % Seg Neutrophils # PT INR ABG pH 7.509 H POC ABG pCO2 POC ABG pO2 ABG pO2 ABG Hemoglobin 8.7 L ABG Oxyhemoglobin ABG Sodium 130.9 L ABG Potassium 5.5 H ABG Glucose 219 H Carboxyhemoglobin 1.7 H Sodium Potassium Chloride Carbon Dioxide BUN Creatinine Glucose POC Glucose 249 H 183 H Calcium Phosphorus Ammonia Total Protein Albumin TSH Arterial Blood Glucose 219 H Arterial Blood Ionized Calcium 4.3 L Phenytoin Valproic Acid 01/26/21 01/26/21 01/26/21 05:21 06:47 06:47 WBC 21.6 H RBC 3.18 L Hgb 8.4 L Hct 26.6 L MCV MCH 27 L RDW 21.8 H Plt Count Lymph % (Auto) Lymph # (Auto) Seg Neutrophils % Seg Neutrophils # PT INR ABG pH POC ABG pCO2 POC ABG pO2 ABG pO2 ABG Hemoglobin ABG Oxyhemoglobin ABG Sodium ABG Potassium ABG Glucose Carboxyhemoglobin Sodium 133 L Potassium 5.6 H D Chloride 94.5 L Carbon Dioxide BUN 73 H Creatinine 3.6 H Glucose 245 H POC Glucose 179 H Calcium Phosphorus Ammonia Total Protein Albumin TSH Arterial Blood Glucose Arterial Blood Ionized Calcium Phenytoin Valproic Acid 01/26/21 11:36 WBC RBC Hgb Hct MCV MCH RDW Plt Count Lymph % (Auto) Lymph # (Auto) Seg Neutrophils % Seg Neutrophils # PT INR ABG pH POC ABG pCO2 POC ABG pO2 ABG pO2 ABG Hemoglobin ABG Oxyhemoglobin ABG Sodium ABG Potassium ABG Glucose Carboxyhemoglobin Sodium Potassium Chloride Carbon Dioxide BUN Creatinine Glucose POC Glucose 235 H Calcium Phosphorus Ammonia Total Protein Albumin TSH Arterial Blood Glucose Arterial Blood Ionized Calcium Phenytoin Valproic Acid
[2021-01-26] MEDS: INSULIN GLARGINE 100 UNITS/ML SUB-Q SCH (22:20)
[2021-01-26] MEDS: levETIRAcetam 500 MG/5 ML ORAL LIQD PO SCH (22:20)
[2021-01-27] MEDS: SENNOSIDES 8.6 MG TAB PO SCH ×3 (04:03→17:47)
[2021-01-27] MEDS: PHOS-NAK POWDER PACKET PO SCH ×3 (06:21→21:36)
[2021-01-27] MEDS: INSULIN LISPRO 100 UNIT/ML SUB-Q SCH ×3 (06:21→17:47)
[2021-01-27] MEDS: LINAGLIPTIN 5 MG TAB PO SCH (08:22)
--- NOTE | 2021-01-27 09:19 | Progress Note ---
Assessment and Plan Assessment and plan: 80 YO Male [facility] Resident with ESRD on HD(T,R,Sa), HLD, HTN, Vascular Dementia, Cerebral Atherosclerosi admitted with diagnosis of new onset seizure. Patient was started on IV Keppra. Patient has had no new seizure activity. Acute hypoxic respiratory failure. Intubated 01/15 for possible status epilepticus however patient was extubated on 01/17 and had to be reintubated on 01/17 for hypoxia. new onset seizure disorder. Vascular dementia Chronic SDH. Holding aspirin Cerebral atherosclerosis ESRD A. fib with RVR Hypertension Oropharyngeal dysphagia. Chronic PEG tube Anemia of chronic disease 01/13/2021. Seizure precautions. Continue IV Keppra and await neurology ev aluation. Check EEG and MRI. CT scan negative. Continue hemodialysis per nephrology recommendations. 01/14/2021. Patient is somnolent and lethargic. However, no new seizure activity noted. CT brain is remarkable for white matter changes. Continue seizure precautions. Follow-up EEG and MRI brain. Neurology decrease Keppra to 250 mg twice daily. Ativan as needed for seizure. Continue hemodialysis per nephrology recommendation 01/15 EEG shows burst suppression pattern, intermittent sharp electric activity is noted throughout the recording, pronounced in the right frontal region, findings consistent with generalized seizure activity 01/16 EEG shows findings of generalized burst suppression as well as recurrent triphasic waves sinuses Rocephin for the process, and her drug effect, reports after stage cannot be excluded, possibility of toxic metabolic and/or hepatic and/or renal insufficiency cannot be excluded 01/17 EEG shows significant improvement previous recording, no epileptiform discharges noted, no runs of sharp looking activity is appreciated, intermittent triphasic waves noted mostly bifrontally and improvement in the background activity to 4-6 Hz noted throughout the recording, concerning suggestive of mild encephalopathic process and/or postictal state of possibility of flexor metabolic etiology cannot be totally excluded 01/18 EEG interpreted as mildly encephalopathic process with background 4-5 Hz noted throughout the recording with triphasic waves noted occasionally and vertex waves centrally more pronounced on the left side, no epileptiform disc harge appreciated, suggestive of possible toxic metabolic and/or drug effect, possibility of postictal state cannot be totally excluded. Hypokalemia today to 2.9 and hypophosphatemia to 1.6, patient received 40 M EQ of KCl, PhosNak for 1 day. Will obtain pm labs. Pateint is less responsive today but Neuro does not think he had another seizure. Thrombocytopenia, will trend CBC. Patient became hypoxic towards the end of dialysis and failed BiPAP therapy and had to be intubated for hypoxia. 01/19: UDS shows presumptive benzo, HD today per nephro, Phos remains low but s till has not completed supplementation. Nephro suggests flumazenil. 01/20: On CMV tidal volume 550, rate of 18, PEEP of 6 on 45% FiO2, patient has a better physical exam with neurology this morning. AM labs pending. 01/20 no acute events overnight 01/21 noted to be in afib this AM. 01/22. Pulmonary considering extubation. However patient failed PSV trials. 01/23/2021. Pulmonary had a long discussion with family regarding tracheostomy and vent weaning. Patient continued on mechanical ventilation. Continue Keppra/AEDs. No new seizure activity 01/24/2021. Patient remains on mechanical ventilation with PSV/CPAP mode, FiO2 35%, CPAP 6, pressure support 15. Pulmonary consult surgery for tracheostomy. Continue Keppra and seizure precautions. Patient currently with A. fib but rate controlled. Consult cardiology for further evaluation 01/26/2021. Patient remains on mechanical ventilation AC mode rate of 12, tidal volume 450, FiO2 25% and PEEP of 6. Patient failed PSV trials yesterday. General surgery evaluated the patient and plans for tracheostomy on Thursday. Continue secretion control and airway management. Tube feeding restarted. Monitor for residuals and aspiration precautions 01/27/2021. Patient remains on mechanical ventilation AC mode rate of 12, tidal volume 450, FiO2 25% and PEEP of 6. PSV trials as tolerated. Tracheostomy planned for Thursday. Continue secretion control and airway management. Continue tube feedings with residual monitoring and aspiration precautions. The high probability of a clinically significant, sudden or life threatening deterioration of the [respiratory, neurological] system(s) required my full and direct attention, intervention and personal management. The aggregate critical care time was [33] minutes. This time is in addition to time spent performing reported procedures but includes the following: [x] Data Review and interpretation [x] Patient assessment and monitoring of vital signs [x] Documentation [x] Medication orders and management History Interval history: No new issues Hospitalist Physical - Constitutional Vitals: Temp Pulse Resp BP Pulse Ox 98.2 F 106 H 22 116/57 99 01/27/21 07:00 01/27/21 08:20 01/27/21 08:20 01/27/21 08:20 01/27/21 08:20 General appearance: Present: no acute distress - EENT Eyes: Present: PERRL, EOM intact ENT: hearing intact, clear oral mucosa, dentition normal - Neck Neck: Present: supple, normal ROM - Respiratory Respiratory effort: normal Respiratory: bilateral: CTA - Cardiovascular Rhythm: regular Heart Sounds: Present: S1 & S2. Absent: gallop, rub - Extremities Extremities: no ischemia, No edema, Full ROM - Abdominal General gastrointestinal: soft, non-tender, non-distended, normal bowel sounds - Integumentary Integumentary: Present: clear, warm, dry - Neurologic Neurologic: CNII-XII intact, moves all extremities Results - Labs CBC & Chem 7: 01/26/21 06:47 01/26/21 06:47 Labs: Laboratory Last Values WBC 21.6 K/mm3 (4.5-11.0) H 01/26/21 06:47 RBC 3.18 M/mm3 (3.65-5.03) L 01/26/21 06:47 Hgb 8.4 gm/dl (11.8-15.2) L 01/26/21 06:47 Hct 26.6 % (35.5-45.6) L 01/26/21 06:47 MCV 84 fl (84-94) 01/26/21 06:47 MCH 27 pg (28-32) L 01/26/21 06:47 MCHC 32 % (32-34) 01/26/21 06:47 RDW 21.8 % (13.2-15.2) H 01/26/21 06:47 Plt Count 182 K/mm3 (140-440) 01/26/21 06:47 Lymph % (Auto) 6.3 % (13.4-35.0) L 01/15/21 05:22 [place] % (Auto) 5.4 % (0.0-7.3) 01/15/21 05:22 Eos % (Auto) 0.0 % (0.0-4.3) 01/15/21 05:22 Baso % (Auto) 0.1 % (0.0-1.8) 01/15/21 05:22 Lymph # (Auto) 0.7 K/mm3 (1.2-5.4) L 01/15/21 05:22 [place] # (Auto) 0.6 K/mm3 (0.0-0.8) 01/15/21 05:22 Eos # (Auto) 0.0 K/mm3 (0.0-0.4) 01/15/21 05:22 Baso # (Auto) 0.0 K/mm3 (0.0-0.1) 01/15/21 05:22 Seg Neutrophils % 88.2 % (40.0-70.0) H 01/15/21 05:22 Seg Neutrophils # 9.8 K/mm3 (1.8-7.7) H 01/15/21 05:22 PT 15.2 Sec. (12.2-14.9) H 01/22/21 04:20 INR 1.15 (0.87-1.13) H 01/22/21 04:20 ABG pH 7.509 (7.320-7.450) H 01/26/21 05:00 POC ABG pCO2 35.8 mmHg (32.0-48.0) 01/26/21 05:00 ABG pCO2 39.5 mm Hg 01/22/21 04:00 POC ABG pO2 87.7 mmHg (83-108) 01/26/21 05:00 ABG pO2 118.8 mm Hg (80.0-90.0) H 01/22/21 04:00 POC ABG HCO3 27.9 01/26/21 05:00 ABG HCO3 24.5 mmol/L (20.0-26.0) 01/22/21 04:00 ABG O2 Saturation 97.1 (0-100) 01/26/21 05:00 ABG O2 Content 13.2 (0.0-44) 01/22/21 04:00 POC ABG Base Excess 4.6 01/26/21 05:00 ABG Base Excess -0.1 mmol/L (-2.0-3.0) 01/22/21 04:00 ABG Hemoglobin 8.7 (12.0-17.5) L 01/26/21 05:00 ABG Oxyhemoglobin 95.2 (94-98) 01/26/21 05:00 ABG Carboxyhemoglobin 1.5 % (0.0-5.0) 01/22/21 04:00 ABG Methemoglobin 0.3 (0.0-1.5) 01/26/21 05:00 ABG Sodium 130.9 mmol/L (136.0-145.0) L 01/26/21 05:00 ABG Potassium 5.5 mmol/L (3.40-4.50) H 01/26/21 05:00 ABG Chloride 98.0 mmol/L (98-107) 01/26/21 05:00 ABG Glucose 219 mg/dL (65-95) H 01/26/21 05:00 Oxyhemoglobin 96.5 % (95.0-99.0) 01/22/21 04:00 Carboxyhemoglobin 1.7 (0.5-1.5) H 01/26/21 05:00 FiO2 35 % 01/22/21 04:00 FiO2 % 25.0 01/26/21 05:00 Sodium 133 mmol/L (137-145) L 01/26/21 06:47 Potassium 5.6 mmol/L (3.6-5.0) H D 01/26/21 06:47 Chloride 94.5 mmol/L (98-107) L 01/26/21 06:47 Carbon Dioxide 28 mmol/L (22-30) 01/26/21 06:47 Anion Gap 16 mmol/L 01/26/21 06:47 BUN 73 mg/dL (9-20) H 01/26/21 06:47 Creatinine 3.6 mg/dL (0.8-1.3) H 01/26/21 06:47 Estimated GFR 20 ml/min 01/26/21 06:47 BUN/Creatinine Ratio 20 % 01/26/21 06:47 Glucose 245 mg/dL (75-100) H 01/26/21 06:47 POC Glucose 179 mg/dL (70-105) H 01/27/21 05:26 Calcium 8.5 mg/dL (8.4-10.2) 01/26/21 06:47 Phosphorus 2.20 mg/dL (2.5-4.5) L 01/25/21 06:02 Magnesium 2.00 mg/dL (1.7-2.3) 01/22/21 04:20 Total Bilirubin 0.20 mg/dL (0.1-1.2) 01/22/21 04:20 Direct Bilirubin < 0.2 mg/dL (0-0.2) 01/12/21 14:36 Indirect Bilirubin 0.1 mg/dL 01/12/21 14:36 AST 37 units/L (5-40) 01/22/21 04:20 ALT 23 units/L (7-56) 01/22/21 04:20 Alkaline Phosphatase 108 units/L (35-129) 01/22/21 04:20 Ammonia 19.0 umol/L (25-60) L 01/22/21 04:20 Total Protein 5.2 g/dL (6.3-8.2) L 01/22/21 04:20 Albumin 1.9 g/dL (3.9-5) L 01/22/21 04:20 Albumin/Globulin Ratio 0.6 % 01/22/21 04:20 TSH 4.730 mlU/mL (0.270-4.200) H 01/22/21 04:20 Arterial Blood Glucose 219 mg/dL (65-95) H 01/26/21 05:00 Arterial Blood Ionized Calcium 4.3 mg/dL (4.6-5.3) L 01/26/21 05:00 Nasal Screen MRSA (PCR) Positive (Negative) 01/13/21 Unknown Urine Opiates Screen Negative 01/18/21 14:25 Urine Methadone Screen Negative 01/18/21 14:25 Ur Barbiturates Screen Negative 01/18/21 14:25 Phenytoin 6.5 ug/mL (10.0-20.0) L 01/16/21 09:15 Valproic Acid 48.4 ug/mL (50-100) L 01/20/21 14:49 Ur Phencyclidine Scrn Negative 01/18/21 14:25 Ur Amphetamines Screen Negative 01/18/21 14:25 U Benzodiazepines Scrn Presumptive positive 01/18/21 14:25 Urine Cocaine Screen Negative 01/18/21 14:25 U Marijuana (THC) Screen Negative 01/18/21 14:25 Drugs of Abuse Note Disclamer 01/18/21 14:25 Coronavirus (PCR) Negative (Negative) 01/15/21 08:00 Hepatitis A IgM Ab Non-reactive (NonReactive) 01/15/21 09:15 Hep Bs Antigen Non-reactive (Negative) 01/15/21 09:15 Hep B Core IgM Ab Non-reactive (NonReactive) 01/15/21 09:15 Hepatitis C Antibody Non-reactive (NonReactive) 01/15/21 09:15 Brewer/IV: Voiding Method Incontinent Active Medications - Current Medications Current Medications: Generic Name Dose Route Start Last Admin Trade Name Freq PRN Reason Stop Dose Admin Acetaminophen 650 mg 01/12/21 19:30 Acetaminophen 325 Mg Tab PO Q4H PRN Pain MILD(1-3)/Fever >100.5/ABEL Albuterol 2.5 mg 01/12/21 19:30 Albuterol 2.5 Mg/3 Ml Nebu IH Q4HRT PRN Shortness Of Breath Lipase/Protease/Amylase 1 each 01/13/21 10:11 Lipase 10,500/Protease 25,000/Amylase 43,750 (Units) Dr Silveira FEEDTUBE PRN PRN For Clogged Feeding Tube Atorvastatin Calcium 40 mg 01/12/21 22:00 01/26/21 22:20 Atorvastatin 40 Mg Tab PO 40 mg QHS NOLAN Administration Calcitriol 1 mcg 01/13/21 10:00 01/26/21 09:27 Calcitriol 0.5 Mcg Cap PO 1 mcg QDAY NOLAN Administration Docusate Sodium 100 mg 01/17/21 09:00 Docusate Sodium 100 Mg/10 Ml Oral Liqd PO BID PRN Constipation Doxazosin Mesylate 2 mg 01/18/21 10:00 01/26/21 09:27 Doxazosin 1 Mg Tab PO 2 mg QDAY NOLAN Administration Hydrophilic Ointment 1 applic 01/15/21 17:14 Lip Therapy Vaseline TP Q2HR PRN Dry Lips Sodium Chloride 100 mls @ 999 mls/hr 01/15/21 08:00 Nacl 0.9% IV DIONNA PRN Hypotension Sodium Chloride 100 mls @ 999 mls/hr 01/26/21 12:29 Nacl 0.9% IV DIONNA PRN Hypotension Insulin Glargine 5 units 01/25/21 22:00 01/26/21 22:20 Insulin Glargine 100 Units/Ml SUB-Q 5 units QHS NOLAN Administration Insulin Human Lispro 0 unit 01/16/21 00:00 01/27/21 06:21 Insulin Lispro 100 Unit/Ml SUB-Q 3 unit Q6HR NOLAN Administration Protocol Lansoprazole 30 mg 01/12/21 22:00 01/26/21 22:20 Lansoprazole 30 Mg Solutab FEEDTUBE 30 mg BID NOLAN Administration Levetiracetam 250 mg 01/23/21 22:00 01/26/21 22:20 Levetiracetam 500 Mg/5 Ml Oral Liqd PO 250 mg QHS NOLAN Administration Linagliptin 5 mg 01/13/21 11:00 01/27/21 08:22 Linagliptin 5 Mg Tab PO 5 mg QDDIAB NOLAN Administration Multi-Ingred Cream/Lotion/Oil/Oint 1 applic 01/15/21 17:14 Mineral Oil/Petrolatum, White Ophth Oint 3.5 Gm OU Q4HR PRN Dry Eye(s) Potassium Phos/Sodium Phos 1 each 01/25/21 09:00 01/27/21 06:21 Phos-Nak Powder Packet PO 1 each Q8HR NOLAN Administration Senna 17.2 mg 01/25/21 10:00 01/27/21 04:03 Sennosides 8.6 Mg Tab PO Not Given Q8H NOLAN Simple Syrup 15 ml 01/13/21 10:11 01/18/21 06:54 Simple Syrup 15 Ml FEEDTUBE 15 ml PRN PRN Administration Hypoglycemia Simple Syrup 30 ml 01/13/21 10:11 Simple Syrup 15 Ml FEEDTUBE PRN PRN Hypoglycemia Sodium Bicarbonate 325 mg 01/13/21 10:11 01/24/21 21:24 Sodium Bicarbonate 325 Mg Tab FEEDTUBE 325 mg PRN PRN Administration For Clogged Feeding Tube Sodium Chloride 10 ml 01/12/21 22:00 01/26/21 22:20 Sodium Chloride 0.9% 10 Ml Flush Syringe IV 10 ml BID NOLAN Administration Timolol Maleate 1 drops 01/17/21 10:00 01/26/21 09:28 Timolol 0.5% Ophth Soln 5 Ml OU 1 drops QDAY NOLAN Administration Nutrition/Malnutrition Assess - Dietary Evaluation Nutrition/Malnutrition Findings: Nutrition Notes Start: 01/13/21 10:03 Freq: Status: Active Protocol: Document 01/23/21 14:52 NHALL (Rec: 01/23/21 14:58 [facility] [id number]) Nutrition Notes Initial or Follow up Reassessment Current Diagnosis CKD (stage V CKD),Diabetes, Hypertension Other Pertinent Diagnosis Chronic seizure d/o Current Diet TF - Osmolite 1.5 at 50ml/hr Labs/Tests BUN 53 Cr 3.1 Na 135 Phos 3.7 (01/22) BG 187 POC Glu range on 01/21: 134-203 POC Glu range on 01/22: 151-295 Pertinent Medications Humalog Height 5 ft 9 in Weight 56.1 kg [place] Body Weight (kg) 72.72 BMI 18.2 Weight Status Underweight Subjective/Other Information Pt remains on vent support. Per RN, pt tolerating TF at goal rate. Percent of energy/protein needs met: 100% energy and pro Burn Absent Trauma Absent #2 Nutrition Diagnosis Increased nutrient needs ( specify in comment below) Diagnosis Progress(for reassessment Continues documentation) #1 Nutrition Diagnosis Inadequate oral intake Diagnosis Progress(for reassessment Continues documentation) Is patient on ventilator? Yes Is Patient Ambulatory and/or Out of Bed No REE-([facility]-confined to bed) 1508.844 Kcal/Kg value to use for calculation 35 Approximate Energy Requirements Using 1964 kcal/Kg Calculation Used for Recommendations Kcal/kg Additional Notes Pro needs >1.2g/kg: >67g/day Fluid needs 1-1.5L/day Nutrition Intervention Nutrition Support: Continue Osmolite 1.5 at 50ml/ hr with 150ml water flush q4h. Provides 2200mg K, 1200mg Phos , 1680mg Na. Kcal 1,800 Protein (gm) 75 Carbohydrates (gm) 244 Fat (gm) 59 Fluid (mL) 914 Fiber (gm) 0 Goal #1 TF tolerance Goal #2 TF to meet 100% energy and pro needs Goal #3 Wt maintenance and/or gain Follow-Up By: 01/29/21 Additional Comments F/U: stable TF, BG labs, vent status
--- NOTE | 2021-01-27 09:26 | Progress Note ---
Assessment and Plan 1.ESRD: Patient is on maintenance hemodialysis three times a week, TTS schedule. Last outpatient HD 01/12/2021. Meds dosage based on GFR. Hemodialysis: 01/15, 01/16, 01/17(UF), 01/18, 01/22, 01/24, 01/26. 2. FEN: Hyperkalemia, s/p HD. Volume overload, UF with HD. Hyponatremia, improved, monitor. Monitor lytes and volume status. 3. Acute resp failure: Currently intubated, on vent. Extubated 01/17. Re-intubated 01/17. Await Trach. 4. Shock: Off pressors. Monitor. 5. New onset of possible witnessed seizure during dialysis: CT brain remarkable for white matter changes. MRI brain: small SDH, chronic changes. On Keppra. Seizure precaution. Seen by Neuro. 6. Advanced dementia: CT white matter changes. 7. Failure to thrive: PEG tube. 8. Anemia, POA: Epogen with HD. 9. DM type 2. 10. Acute metabolic encephalopathy: Followed by Neuro. Subjective: Patient was was not examined today. However the examination findings from other providers noted. The current and previous medical records are reviewed in detail as are laboratory and imaging data reviewed when appropriate. Medications being given are also reviewed. In addition the case has been discussed with the attending hospitalist and the nurse when needed. New renal recommendations as above. Examination: Subjective Date of service: 01/27/21 Principal diagnosis: witnessed seizure hx of ESRD ,hyponatremia Objective - Vital Signs Vital signs: Vital Signs - 12hr 01/26/21 01/26/21 01/26/21 21:30 21:40 21:50 Temperature Pulse Rate 90 90 91 H Pulse Rate [ From Monitor] Pulse Rate [ Left Dorsalis Pedis] Pulse Rate [ Left Radial] Pulse Rate [ Right Dorsalis Pedis] Pulse Rate [ Right Radial] Respiratory 22 24 15 Rate Blood Pressure 141/65 135/69 135/69 O2 Sat by Pulse 100 100 100 Oximetry O2 Sat by Pulse Oximetry [ Anterior Bilateral Throughout] 01/26/21 01/26/21 01/26/21 22:00 22:10 22:20 Temperature 97.8 F Pulse Rate 94 H 93 H 92 H Pulse Rate [ From Monitor] Pulse Rate [ Left Dorsalis Pedis] Pulse Rate [ Left Radial] Pulse Rate [ Right Dorsalis Pedis] Pulse Rate [ Right Radial] Respiratory 23 22 22 Rate Blood Pressure 141/67 141/67 144/66 O2 Sat by Pulse 100 100 100 Oximetry O2 Sat by Pulse 100 Oximetry [ Anterior Bilateral Throughout] 01/26/21 01/26/21 01/26/21 22:30 22:40 22:45 Temperature Pulse Rate 92 H 98 H 93 H Pulse Rate [ From Monitor] Pulse Rate [ Left Dorsalis Pedis] Pulse Rate [ Left Radial] Pulse Rate [ Right Dorsalis Pedis] Pulse Rate [ Right Radial] Respiratory 21 22 Rate Blood Pressure 144/72 144/72 144/68 O2 Sat by Pulse 100 100 Oximetry O2 Sat by Pulse Oximetry [ Anterior Bilateral Throughout] 01/26/21 01/26/21 01/26/21 22:50 23:00 23:10 Temperature Pulse Rate 101 H 103 H 105 H Pulse Rate [ From Monitor] Pulse Rate [ Left Dorsalis Pedis] Pulse Rate [ Left Radial] Pulse Rate [ Right Dorsalis Pedis] Pulse Rate [ Right Radial] Respiratory 23 24 24 Rate Blood Pressure 139/69 127/73 127/73 O2 Sat by Pulse 100 100 100 Oximetry O2 Sat by Pulse Oximetry [ Anterior Bilateral Throughout] 01/26/21 01/26/21 01/26/21 23:15 23:20 23:30 Temperature Pulse Rate 104 H 105 H 107 H Pulse Rate [ From Monitor] Pulse Rate [ Left Dorsalis Pedis] Pulse Rate [ Left Radial] Pulse Rate [ Right Dorsalis Pedis] Pulse Rate [ Right Radial] Respiratory 22 18 Rate Blood Pressure 134/67 134/67 120/60 O2 Sat by Pulse 100 100 Oximetry O2 Sat by Pulse Oximetry [ Anterior Bilateral Throughout] 01/26/21 01/26/21 01/26/21 23:40 23:45 23:50 Temperature Pulse Rate 107 H 108 H 110 H Pulse Rate [ From Monitor] Pulse Rate [ Left Dorsalis Pedis] Pulse Rate [ Left Radial] Pulse Rate [ Right Dorsalis Pedis] Pulse Rate [ Right Radial] Respiratory 23 22 Rate Blood Pressure 127/73 124/69 124/69 O2 Sat by Pulse 100 99 Oximetry O2 Sat by Pulse Oximetry [ Anterior Bilateral Throughout] 01/26/21 01/27/21 01/27/21 23:55 00:00 00:10 Temperature 97.3 F L Pulse Rate 106 H 108 H Pulse Rate [ From Monitor] Pulse Rate [ Left Dorsalis Pedis] Pulse Rate [ Left Radial] Pulse Rate [ Right Dorsalis Pedis] Pulse Rate [ Right Radial] Respiratory 24 13 Rate Blood Pressure 131/69 131/69 O2 Sat by Pulse 100 100 Oximetry O2 Sat by Pulse Oximetry [ Anterior Bilateral Throughout] 01/27/21 01/27/21 01/27/21 00:15 00:20 00:30 Temperature Pulse Rate 111 H 109 H 109 H Pulse Rate [ From Monitor] Pulse Rate [ Left Dorsalis Pedis] Pulse Rate [ Left Radial] Pulse Rate [ Right Dorsalis Pedis] Pulse Rate [ Right Radial] Respiratory 22 21 Rate Blood Pressure 110/66 110/66 114/63 O2 Sat by Pulse 100 100 Oximetry O2 Sat by Pulse Oximetry [ Anterior Bilateral Throughout] 01/27/21 01/27/21 01/27/21 00:34 00:40 00:45 Temperature Pulse Rate 108 H 110 H 112 H Pulse Rate [ From Monitor] Pulse Rate [ Left Dorsalis Pedis] Pulse Rate [ Left Radial] Pulse Rate [ Right Dorsalis Pedis] Pulse Rate [ Right Radial] Respiratory 14 Rate Blood Pressure 110/66 114/63 101/56 O2 Sat by Pulse 100 100 Oximetry O2 Sat by Pulse Oximetry [ Anterior Bilateral Throughout] 01/27/21 01/27/21 01/27/21 00:50 01:00 01:10 Temperature Pulse Rate 110 H 112 H 112 H Pulse Rate [ From Monitor] Pulse Rate [ Left Dorsalis Pedis] Pulse Rate [ Left Radial] Pulse Rate [ Right Dorsalis Pedis] Pulse Rate [ Right Radial] Respiratory 21 22 16 Rate Blood Pressure 101/56 104/61 104/61 O2 Sat by Pulse 100 100 Oximetry O2 Sat by Pulse Oximetry [ Anterior Bilateral Throughout] 01/27/21 01/27/21 01/27/21 01:15 01:20 01:30 Temperature Pulse Rate 114 H 113 H 110 H Pulse Rate [ From Monitor] Pulse Rate [ Left Dorsalis Pedis] Pulse Rate [ Left Radial] Pulse Rate [ Right Dorsalis Pedis] Pulse Rate [ Right Radial] Respiratory 22 23 Rate Blood Pressure 110/58 110/58 100/55 O2 Sat by Pulse 100 Oximetry O2 Sat by Pulse Oximetry [ Anterior Bilateral Throughout] 01/27/21 01/27/21 01/27/21 01:40 01:41 01:50 Temperature 97.8 F Pulse Rate 109 H 112 H 109 H Pulse Rate [ From Monitor] Pulse Rate [ Left Dorsalis Pedis] Pulse Rate [ Left Radial] Pulse Rate [ Right Dorsalis Pedis] Pulse Rate [ Right Radial] Respiratory 20 21 23 Rate Blood Pressure 100/55 100/55 117/62 O2 Sat by Pulse 100 100 Oximetry O2 Sat by Pulse 100 Oximetry [ Anterior Bilateral Throughout] 01/27/21 01/27/21 01/27/21 02:00 02:10 02:20 Temperature Pulse Rate 110 H 111 H 112 H Pulse Rate [ From Monitor] Pulse Rate [ Left Dorsalis Pedis] Pulse Rate [ Left Radial] Pulse Rate [ Right Dorsalis Pedis] Pulse Rate [ Right Radial] Respiratory 22 25 H 20 Rate Blood Pressure 117/58 117/58 92/48 O2 Sat by Pulse 100 100 100 Oximetry O2 Sat by Pulse Oximetry [ Anterior Bilateral Throughout] 01/27/21 01/27/21 01/27/21 02:30 02:40 02:50 Temperature Pulse Rate 105 H 108 H 109 H Pulse Rate [ From Monitor] Pulse Rate [ Left Dorsalis Pedis] Pulse Rate [ Left Radial] Pulse Rate [ Right Dorsalis Pedis] Pulse Rate [ Right Radial] Respiratory 23 19 23 Rate Blood Pressure 95/50 95/50 91/55 O2 Sat by Pulse 100 100 100 Oximetry O2 Sat by Pulse Oximetry [ Anterior Bilateral Throughout] 01/27/21 01/27/21 01/27/21 03:00 03:10 03:20 Temperature Pulse Rate 108 H 108 H 111 H Pulse Rate [ From Monitor] Pulse Rate [ Left Dorsalis Pedis] Pulse Rate [ Left Radial] Pulse Rate [ Right Dorsalis Pedis] Pulse Rate [ Right Radial] Respiratory 18 13 26 H Rate Blood Pressure 100/58 100/58 109/64 O2 Sat by Pulse 100 100 100 Oximetry O2 Sat by Pulse Oximetry [ Anterior Bilateral Throughout] 01/27/21 01/27/21 01/27/21 03:28 03:30 03:40 Temperature 98.8 F Pulse Rate 108 H 113 H Pulse Rate [ From Monitor] Pulse Rate [ Left Dorsalis Pedis] Pulse Rate [ Left Radial] Pulse Rate [ Right Dorsalis Pedis] Pulse Rate [ Right Radial] Respiratory 24 14 Rate Blood Pressure 109/64 132/60 O2 Sat by Pulse 100 Oximetry O2 Sat by Pulse Oximetry [ Anterior Bilateral Throughout] 01/27/21 01/27/21 01/27/21 03:50 04:00 04:06 Temperature Pulse Rate 107 H 108 H 106 H Pulse Rate [ From Monitor] Pulse Rate [ Left Dorsalis Pedis] Pulse Rate [ Left Radial] Pulse Rate [ Right Dorsalis Pedis] Pulse Rate [ Right Radial] Respiratory 22 24 Rate Blood Pressure 125/56 126/64 126/64 O2 Sat by Pulse 100 100 Oximetry O2 Sat by Pulse Oximetry [ Anterior Bilateral Throughout] 01/27/21 01/27/21 01/27/21 04:10 04:20 04:30 Temperature Pulse Rate 107 H 103 H 100 H Pulse Rate [ From Monitor] Pulse Rate [ Left Dorsalis Pedis] Pulse Rate [ Left Radial] Pulse Rate [ Right Dorsalis Pedis] Pulse Rate [ Right Radial] Respiratory 18 22 16 Rate Blood Pressure 126/64 130/58 130/58 O2 Sat by Pulse 100 100 Oximetry O2 Sat by Pulse Oximetry [ Anterior Bilateral Throughout] 01/27/21 01/27/21 01/27/21 04:40 04:50 05:00 Temperature Pulse Rate 100 H 99 H 103 H Pulse Rate [ From Monitor] Pulse Rate [ Left Dorsalis Pedis] Pulse Rate [ Left Radial] Pulse Rate [ Right Dorsalis Pedis] Pulse Rate [ Right Radial] Respiratory 13 20 23 Rate Blood Pressure 103/50 116/50 127/56 O2 Sat by Pulse 100 100 100 Oximetry O2 Sat by Pulse Oximetry [ Anterior Bilateral Throughout] 01/27/21 01/27/21 01/27/21 05:10 05:20 05:30 Temperature Pulse Rate 105 H 102 H 102 H Pulse Rate [ From Monitor] Pulse Rate [ Left Dorsalis Pedis] Pulse Rate [ Left Radial] Pulse Rate [ Right Dorsalis Pedis] Pulse Rate [ Right Radial] Respiratory 27 H 25 H 13 Rate Blood Pressure 127/56 111/54 112/56 O2 Sat by Pulse 98 91 100 Oximetry O2 Sat by Pulse Oximetry [ Anterior Bilateral Throughout] 01/27/21 01/27/21 01/27/21 05:40 05:50 06:00 Temperature Pulse Rate 101 H 101 H 97 H Pulse Rate [ From Monitor] Pulse Rate [ Left Dorsalis Pedis] Pulse Rate [ Left Radial] Pulse Rate [ Right Dorsalis Pedis] Pulse Rate [ Right Radial] Respiratory 24 19 19 Rate Blood Pressure 112/56 115/56 114/56 O2 Sat by Pulse 100 100 99 Oximetry O2 Sat by Pulse Oximetry [ Anterior Bilateral Throughout] 01/27/21 01/27/21 01/27/21 06:10 06:20 06:30 Temperature Pulse Rate 100 H 104 H 103 H Pulse Rate [ From Monitor] Pulse Rate [ Left Dorsalis Pedis] Pulse Rate [ Left Radial] Pulse Rate [ Right Dorsalis Pedis] Pulse Rate [ Right Radial] Respiratory 14 21 24 Rate Blood Pressure 114/56 113/60 110/58 O2 Sat by Pulse 100 100 Oximetry O2 Sat by Pulse Oximetry [ Anterior Bilateral Throughout] 01/27/21 01/27/21 01/27/21 06:40 06:50 07:00 Temperature 98.2 F Pulse Rate 103 H 102 H 105 H Pulse Rate [ From Monitor] Pulse Rate [ Left Dorsalis Pedis] Pulse Rate [ Left Radial] Pulse Rate [ Right Dorsalis Pedis] Pulse Rate [ Right Radial] Respiratory 22 19 24 Rate Blood Pressure 110/58 119/59 123/63 O2 Sat by Pulse 100 100 100 Oximetry O2 Sat by Pulse Oximetry [ Anterior Bilateral Throughout] 01/27/21 01/27/21 01/27/21 07:10 07:20 07:26 Temperature Pulse Rate 103 H 105 H 106 H Pulse Rate [ From Monitor] Pulse Rate [ Left Dorsalis Pedis] Pulse Rate [ Left Radial] Pulse Rate [ Right Dorsalis Pedis] Pulse Rate [ Right Radial] Respiratory 19 22 Rate Blood Pressure 123/63 104/57 104/57 O2 Sat by Pulse 100 100 100 Oximetry O2 Sat by Pulse Oximetry [ Anterior Bilateral Throughout] 01/27/21 01/27/21 01/27/21 07:30 07:40 07:50 Temperature Pulse Rate 110 H 104 H 104 H Pulse Rate [ From Monitor] Pulse Rate [ Left Dorsalis Pedis] Pulse Rate [ Left Radial] Pulse Rate [ Right Dorsalis Pedis] Pulse Rate [ Right Radial] Respiratory 29 H 22 20 Rate Blood Pressure 129/63 129/63 108/63 O2 Sat by Pulse 100 93 99 Oximetry O2 Sat by Pulse Oximetry [ Anterior Bilateral Throughout] 01/27/21 01/27/21 01/27/21 08:00 08:10 08:20 Temperature Pulse Rate 107 H 104 H 106 H Pulse Rate [ 107 H From Monitor] Pulse Rate [ 105 H Left Dorsalis Pedis] Pulse Rate [ 106 H Left Radial] Pulse Rate [ 103 H Right Dorsalis Pedis] Pulse Rate [ 105 H Right Radial] Respiratory 18 16 22 Rate Blood Pressure 109/58 109/58 116/57 O2 Sat by Pulse 100 99 99 Oximetry O2 Sat by Pulse Oximetry [ Anterior Bilateral Throughout] - Lab 01/26/21 06:47 01/26/21 06:47 Most recent lab results ABG pH 7.509 (7.320-7.450) H 01/26/21 05:00 ABG pCO2 39.5 mm Hg 01/22/21 04:00 ABG pO2 118.8 mm Hg (80.0-90.0) H 01/22/21 04:00 ABG HCO3 24.5 mmol/L (20.0-26.0) 01/22/21 04:00 ABG O2 Saturation 97.1 (0-100) 01/26/21 05:00 Calcium 8.5 mg/dL (8.4-10.2) 01/26/21 06:47 Phosphorus 2.20 mg/dL (2.5-4.5) L 01/25/21 06:02 Magnesium 2.00 mg/dL (1.7-2.3) 01/22/21 04:20 Medications & Allergies - Medications Allergies/Adverse Reactions: Allergies No Known Allergies Allergy (Verified 08/14/19 16:11) Home Medications: Home Medications Medication Instructions Recorded Confirmed Last Taken Type Alogliptin Benzoate [Alogliptin] 1 tab PO DAILY 10/02/20 01/23/21 Unknown History AtorvaSTATin [Lipitor] 40 mg PO QHS #30 10/11/20 01/23/21 Unknown Rx Doxazosin [Cardura] 4 mg PO QDAY #30 10/11/20 01/23/21 Unknown Rx Febuxostat 40 mg PO QDAY #30 10/11/20 01/23/21 Unknown Rx Ketotifen Fumarate 1 drop OU QDAY #1 bottle 10/11/20 01/23/21 Unknown Rx Lansoprazole Solutab [Prevacid 30 mg FEEDTUBE BID #60 tab.rapdis 10/11/20 01/23/21 Unknown Rx Solutab] Megestrol Acetate 40 mg PO QDAY #30 10/11/20 01/23/21 Unknown Rx Metoprolol [Lopressor TAB] 12.5 mg PO BID #60 tablet 10/11/20 01/23/21 Unknown Rx calcitrioL [Rocaltrol] 1 mcg PO QDAY #30 cap 10/11/20 01/23/21 Unknown Rx timoloL maleate [Timolol Maleate 1 drop OP BID #1 bottle 10/11/20 01/23/21 Unknown Rx 0.25%] Insulin Lispro [Humalog] 0 units SUB-Q QID 01/23/21 01/23/21 Unknown History Active Medications: Generic Name Dose Route Start Last Admin Trade Name Freq PRN Reason Stop Dose Admin Acetaminophen 650 mg 01/12/21 19:30 Acetaminophen 325 Mg Tab PO Q4H PRN Pain MILD(1-3)/Fever >100.5/ABEL Albuterol 2.5 mg 01/12/21 19:30 Albuterol 2.5 Mg/3 Ml Nebu IH Q4HRT PRN Shortness Of Breath Lipase/Protease/Amylase 1 each 01/13/21 10:11 Lipase 10,500/Protease 25,000/Amylase 43,750 (Units) Dr Silveira FEEDTUBE PRN PRN For Clogged Feeding Tube Atorvastatin Calcium 40 mg 01/12/21 22:00 01/26/21 22:20 Atorvastatin 40 Mg Tab PO 40 mg QHS NOLAN Administration Calcitriol 1 mcg 01/13/21 10:00 01/26/21 09:27 Calcitriol 0.5 Mcg Cap PO 1 mcg QDAY NOLAN Administration Docusate Sodium 100 mg 01/17/21 09:00 Docusate Sodium 100 Mg/10 Ml Oral Liqd PO BID PRN Constipation Doxazosin Mesylate 2 mg 01/18/21 10:00 01/26/21 09:27 Doxazosin 1 Mg Tab PO 2 mg QDAY NOLAN Administration Hydrophilic Ointment 1 applic 01/15/21 17:14 Lip Therapy Vaseline TP Q2HR PRN Dry Lips Sodium Chloride 100 mls @ 999 mls/hr 01/15/21 08:00 Nacl 0.9% IV DIONNA PRN Hypotension Sodium Chloride 100 mls @ 999 mls/hr 01/26/21 12:29 Nacl 0.9% IV DIONNA PRN Hypotension Insulin Glargine 5 units 01/25/21 22:00 01/26/21 22:20 Insulin Glargine 100 Units/Ml SUB-Q 5 units QHS NOLAN Administration Insulin Human Lispro 0 unit 01/16/21 00:00 01/27/21 06:21 Insulin Lispro 100 Unit/Ml SUB-Q 3 unit Q6HR NOLAN Administration Protocol Lansoprazole 30 mg 01/12/21 22:00 01/26/21 22:20 Lansoprazole 30 Mg Solutab FEEDTUBE 30 mg BID NOLAN Administration Levetiracetam 250 mg 01/23/21 22:00 01/26/21 22:20 Levetiracetam 500 Mg/5 Ml Oral Liqd PO 250 mg QHS NOLAN Administration Linagliptin 5 mg 01/13/21 11:00 01/27/21 08:22 Linagliptin 5 Mg Tab PO 5 mg QDDIAB NOLAN Administration Multi-Ingred Cream/Lotion/Oil/Oint 1 applic 01/15/21 17:14 Mineral Oil/Petrolatum, White Ophth Oint 3.5 Gm OU Q4HR PRN Dry Eye(s) Potassium Phos/Sodium Phos 1 each 01/25/21 09:00 01/27/21 06:21 Phos-Nak Powder Packet PO 1 each Q8HR NOLAN Administration Senna 17.2 mg 01/25/21 10:00 01/27/21 04:03 Sennosides 8.6 Mg Tab PO Not Given Q8H NOLAN Simple Syrup 15 ml 01/13/21 10:11 01/18/21 06:54 Simple Syrup 15 Ml FEEDTUBE 15 ml PRN PRN Administration Hypoglycemia Simple Syrup 30 ml 01/13/21 10:11 Simple Syrup 15 Ml FEEDTUBE PRN PRN Hypoglycemia Sodium Bicarbonate 325 mg 01/13/21 10:11 01/24/21 21:24 Sodium Bicarbonate 325 Mg Tab FEEDTUBE 325 mg PRN PRN Administration For Clogged Feeding Tube Sodium Chloride 10 ml 01/12/21 22:00 01/26/21 22:20 Sodium Chloride 0.9% 10 Ml Flush Syringe IV 10 ml BID NOLAN Administration Timolol Maleate 1 drops 01/17/21 10:00 01/26/21 09:28 Timolol 0.5% Ophth Soln 5 Ml OU 1 drops QDAY NOLAN Administration
[2021-01-27] MEDS: LANSOPRAZOLE 30 MG SOLUTAB FEEDTUBE SCH ×2 (09:28→21:36)
[2021-01-27] MEDS: CALCITRIOL 0.5 MCG CAP PO SCH (09:29)
[2021-01-27] MEDS: TIMOLOL 0.5% OPHTH SOLN 5 ML OU SCH (09:30)
[2021-01-27] MEDS: DOXAZOSIN 1 MG TAB PO SCH (09:31)
[2021-01-27] MEDS: SODIUM BICARBONATE 325 MG TAB FEEDTUBE PRN (09:43)
--- NOTE | 2021-01-27 12:52 | Progress Note ---
Assessment and Plan Initialization Date: 01/25/21 11:13 Assessment and Plan 80 y/o with chronic seizure disorder, ESRD, HTN admitted with status epilepticus, requiring intubation for burst suppression. 01/27/2021: No change remains unresponsive open eyes. Remains on mechanical ventilator. Failed CPAP trial yesterday due to apneas. Awaiting trach. 01/26/2021: No new changes continue with the current vent setting. Currently being evaluated for possible tracheostomy next week. No changes made in a vent setting today. 01/25/21: Appreciate surgery eval on yesterday. Await anesthesia eval and dis cussion with family. Will restart tube feeds, add bowel regimen and give laxative today. Failed PSV again today as he was having periods of apnea. Guarded to poor prognosis. 01/24/21: Consult Dr. Guerrero for trach, patient already has peg. Continue supportive measures. Guarded to poor prognosis. 01/23/21: Long discussion with family over the phone at bedside. They had several questions about trach and weaning. Answered all questions as best as possible. Family going to discuss again today and will let us known tomorrow. Continue supportive measures. Guarded to poor prognosis. 01/22/21: Will discuss on rounds today the possibility of cutting back more on anti-epileptic meds to see if this helps with his mental state. Will reach out to family today to discuss next options and goals of care. He is currently not a candidate for extubation and may need trach and peg. Will call with CM. Continue daily PSV trials. 01/21/21: FiO2 now down to 30%. RT to attempt PSV today to see how patient tolerates. Not a candidate for extubation given his current mental state. Neuro did decrease meds more on yesterday Keppra daily and BID Valproic Acid. Will call family to update on current level of care. Overall prognosis remains guarded to poor. Will get Head CT today to rule out any new areas of ischemia or bleeding. 01/20/21: FiO2 stable on 45%. Hold on repeat Imaging for now. Will hold on Flumazenil therapy given his prior history of seizure. May need more HD tomorrow. Spoke with Daughter and over the phone to update and they asked me to call them again tomorrow. Will tell them that visiting hours are present if they choose to come. Guarded prognosis. 01/19/21: Dropped FiO2 to 45%. Await neurology eval today but need to consider repeat imaging of head as I have not explanation as to why patient is not responsive. Patient does not make any urine so not able to send UDS. Had HD on yesterday so next one would likely be Thursday. Renal to address electrolytes. Very very guarded prognosis. 01/18/21: EEG not officially read, but prelim is negative for seizures, just diffuse slowing. ABG is stable, not hypercapnic. Will send UDS to see if benzos are still in system. spoke with renal who will do HD today and manage electrolytes. DId order mag level given low levels of potassium. Overall prognosis is very guarded to poor. If not more responsive tomorrow, may need to consider repeat imaging of head/brain. 01/17/21: Extubate. HD today per renal. If tolerates both, transfer back to floor on new anti-epileptic regimen 1. Continue Versed at 3mg IV per Hour for the next 24 hours. 2. Repeat EEG tomorrow off Versed. 3. Will attempt to get this before HD tomorrow. 4. HD per renal, tomorrow as patient got HD yesterday Total critical care time 31-minute Subjective Date of service: 01/27/21 Principal diagnosis: witnessed seizure hx of ESRD ,hyponatremia Interval history: No significant change remain kind of unresponsive occasionally open eyes. Remains intubated on mechanical ventilator with minimal support. Failed weaning. Objective Vital Signs - 12hr 01/27/21 01/27/21 01/27/21 01:00 01:10 01:15 Temperature Pulse Rate 112 H 112 H 114 H Pulse Rate [ From Monitor] Pulse Rate [ Left Dorsalis Pedis] Pulse Rate [ Left Radial] Pulse Rate [ Right Dorsalis Pedis] Pulse Rate [ Right Radial] Respiratory 22 16 Rate Blood Pressure 104/61 104/61 110/58 O2 Sat by Pulse 100 Oximetry O2 Sat by Pulse Oximetry [ Anterior Bilateral Throughout] 01/27/21 01/27/21 01/27/21 01:20 01:30 01:40 Temperature Pulse Rate 113 H 110 H 109 H Pulse Rate [ From Monitor] Pulse Rate [ Left Dorsalis Pedis] Pulse Rate [ Left Radial] Pulse Rate [ Right Dorsalis Pedis] Pulse Rate [ Right Radial] Respiratory 22 23 20 Rate Blood Pressure 110/58 100/55 100/55 O2 Sat by Pulse 100 100 Oximetry O2 Sat by Pulse Oximetry [ Anterior Bilateral Throughout] 01/27/21 01/27/21 01/27/21 01:41 01:50 02:00 Temperature 97.8 F Pulse Rate 112 H 109 H 110 H Pulse Rate [ From Monitor] Pulse Rate [ Left Dorsalis Pedis] Pulse Rate [ Left Radial] Pulse Rate [ Right Dorsalis Pedis] Pulse Rate [ Right Radial] Respiratory 21 23 22 Rate Blood Pressure 100/55 117/62 117/58 O2 Sat by Pulse 100 100 Oximetry O2 Sat by Pulse 100 Oximetry [ Anterior Bilateral Throughout] 01/27/21 01/27/21 01/27/21 02:10 02:20 02:30 Temperature Pulse Rate 111 H 112 H 105 H Pulse Rate [ From Monitor] Pulse Rate [ Left Dorsalis Pedis] Pulse Rate [ Left Radial] Pulse Rate [ Right Dorsalis Pedis] Pulse Rate [ Right Radial] Respiratory 25 H 20 23 Rate Blood Pressure 117/58 92/48 95/50 O2 Sat by Pulse 100 100 100 Oximetry O2 Sat by Pulse Oximetry [ Anterior Bilateral Throughout] 01/27/21 01/27/21 01/27/21 02:40 02:50 03:00 Temperature Pulse Rate 108 H 109 H 108 H Pulse Rate [ From Monitor] Pulse Rate [ Left Dorsalis Pedis] Pulse Rate [ Left Radial] Pulse Rate [ Right Dorsalis Pedis] Pulse Rate [ Right Radial] Respiratory 19 23 18 Rate Blood Pressure 95/50 91/55 100/58 O2 Sat by Pulse 100 100 100 Oximetry O2 Sat by Pulse Oximetry [ Anterior Bilateral Throughout] 01/27/21 01/27/21 01/27/21 03:10 03:20 03:28 Temperature 98.8 F Pulse Rate 108 H 111 H Pulse Rate [ From Monitor] Pulse Rate [ Left Dorsalis Pedis] Pulse Rate [ Left Radial] Pulse Rate [ Right Dorsalis Pedis] Pulse Rate [ Right Radial] Respiratory 13 26 H Rate Blood Pressure 100/58 109/64 O2 Sat by Pulse 100 100 Oximetry O2 Sat by Pulse Oximetry [ Anterior Bilateral Throughout] 01/27/21 01/27/21 01/27/21 03:30 03:40 03:50 Temperature Pulse Rate 108 H 113 H 107 H Pulse Rate [ From Monitor] Pulse Rate [ Left Dorsalis Pedis] Pulse Rate [ Left Radial] Pulse Rate [ Right Dorsalis Pedis] Pulse Rate [ Right Radial] Respiratory 24 14 22 Rate Blood Pressure 109/64 132/60 125/56 O2 Sat by Pulse 100 100 Oximetry O2 Sat by Pulse Oximetry [ Anterior Bilateral Throughout] 01/27/21 01/27/21 01/27/21 04:00 04:06 04:10 Temperature Pulse Rate 108 H 106 H 107 H Pulse Rate [ From Monitor] Pulse Rate [ Left Dorsalis Pedis] Pulse Rate [ Left Radial] Pulse Rate [ Right Dorsalis Pedis] Pulse Rate [ Right Radial] Respiratory 24 18 Rate Blood Pressure 126/64 126/64 126/64 O2 Sat by Pulse 100 100 Oximetry O2 Sat by Pulse Oximetry [ Anterior Bilateral Throughout] 01/27/21 01/27/21 01/27/21 04:20 04:30 04:40 Temperature Pulse Rate 103 H 100 H 100 H Pulse Rate [ From Monitor] Pulse Rate [ Left Dorsalis Pedis] Pulse Rate [ Left Radial] Pulse Rate [ Right Dorsalis Pedis] Pulse Rate [ Right Radial] Respiratory 22 16 13 Rate Blood Pressure 130/58 130/58 103/50 O2 Sat by Pulse 100 100 Oximetry O2 Sat by Pulse Oximetry [ Anterior Bilateral Throughout] 01/27/21 01/27/21 01/27/21 04:50 05:00 05:10 Temperature Pulse Rate 99 H 103 H 105 H Pulse Rate [ From Monitor] Pulse Rate [ Left Dorsalis Pedis] Pulse Rate [ Left Radial] Pulse Rate [ Right Dorsalis Pedis] Pulse Rate [ Right Radial] Respiratory 20 23 27 H Rate Blood Pressure 116/50 127/56 127/56 O2 Sat by Pulse 100 100 98 Oximetry O2 Sat by Pulse Oximetry [ Anterior Bilateral Throughout] 01/27/21 01/27/21 01/27/21 05:20 05:30 05:40 Temperature Pulse Rate 102 H 102 H 101 H Pulse Rate [ From Monitor] Pulse Rate [ Left Dorsalis Pedis] Pulse Rate [ Left Radial] Pulse Rate [ Right Dorsalis Pedis] Pulse Rate [ Right Radial] Respiratory 25 H 13 24 Rate Blood Pressure 111/54 112/56 112/56 O2 Sat by Pulse 91 100 100 Oximetry O2 Sat by Pulse Oximetry [ Anterior Bilateral Throughout] 01/27/21 01/27/21 01/27/21 05:50 06:00 06:10 Temperature Pulse Rate 101 H 97 H 100 H Pulse Rate [ From Monitor] Pulse Rate [ Left Dorsalis Pedis] Pulse Rate [ Left Radial] Pulse Rate [ Right Dorsalis Pedis] Pulse Rate [ Right Radial] Respiratory 19 19 14 Rate Blood Pressure 115/56 114/56 114/56 O2 Sat by Pulse 100 99 100 Oximetry O2 Sat by Pulse Oximetry [ Anterior Bilateral Throughout] 01/27/21 01/27/21 01/27/21 06:20 06:30 06:40 Temperature Pulse Rate 104 H 103 H 103 H Pulse Rate [ From Monitor] Pulse Rate [ Left Dorsalis Pedis] Pulse Rate [ Left Radial] Pulse Rate [ Right Dorsalis Pedis] Pulse Rate [ Right Radial] Respiratory 21 24 22 Rate Blood Pressure 113/60 110/58 110/58 O2 Sat by Pulse 100 100 Oximetry O2 Sat by Pulse Oximetry [ Anterior Bilateral Throughout] 01/27/21 01/27/21 01/27/21 06:50 07:00 07:10 Temperature 98.2 F Pulse Rate 102 H 105 H 103 H Pulse Rate [ From Monitor] Pulse Rate [ Left Dorsalis Pedis] Pulse Rate [ Left Radial] Pulse Rate [ Right Dorsalis Pedis] Pulse Rate [ Right Radial] Respiratory 19 24 19 Rate Blood Pressure 119/59 123/63 123/63 O2 Sat by Pulse 100 100 100 Oximetry O2 Sat by Pulse Oximetry [ Anterior Bilateral Throughout] 01/27/21 01/27/21 01/27/21 07:20 07:26 07:30 Temperature Pulse Rate 105 H 106 H 110 H Pulse Rate [ From Monitor] Pulse Rate [ Left Dorsalis Pedis] Pulse Rate [ Left Radial] Pulse Rate [ Right Dorsalis Pedis] Pulse Rate [ Right Radial] Respiratory 22 29 H Rate Blood Pressure 104/57 104/57 129/63 O2 Sat by Pulse 100 100 100 Oximetry O2 Sat by Pulse Oximetry [ Anterior Bilateral Throughout] 01/27/21 01/27/21 01/27/21 07:40 07:50 08:00 Temperature Pulse Rate 104 H 104 H 107 H Pulse Rate [ 107 H From Monitor] Pulse Rate [ 105 H Left Dorsalis Pedis] Pulse Rate [ 106 H Left Radial] Pulse Rate [ 103 H Right Dorsalis Pedis] Pulse Rate [ 105 H Right Radial] Respiratory 22 20 18 Rate Blood Pressure 129/63 108/63 109/58 O2 Sat by Pulse 93 99 100 Oximetry O2 Sat by Pulse Oximetry [ Anterior Bilateral Throughout] 01/27/21 01/27/21 01/27/21 08:10 08:20 08:30 Temperature Pulse Rate 104 H 106 H 105 H Pulse Rate [ From Monitor] Pulse Rate [ Left Dorsalis Pedis] Pulse Rate [ Left Radial] Pulse Rate [ Right Dorsalis Pedis] Pulse Rate [ Right Radial] Respiratory 16 22 21 Rate Blood Pressure 109/58 116/57 119/55 O2 Sat by Pulse 99 99 99 Oximetry O2 Sat by Pulse Oximetry [ Anterior Bilateral Throughout] 01/27/21 01/27/21 01/27/21 08:40 08:50 09:00 Temperature Pulse Rate 103 H 103 H 102 H Pulse Rate [ From Monitor] Pulse Rate [ Left Dorsalis Pedis] Pulse Rate [ Left Radial] Pulse Rate [ Right Dorsalis Pedis] Pulse Rate [ Right Radial] Respiratory 15 22 18 Rate Blood Pressure 119/55 117/55 107/55 O2 Sat by Pulse 100 100 100 Oximetry O2 Sat by Pulse Oximetry [ Anterior Bilateral Throughout] 01/27/21 01/27/21 01/27/21 09:10 09:20 09:30 Temperature Pulse Rate 102 H 102 H 105 H Pulse Rate [ From Monitor] Pulse Rate [ Left Dorsalis Pedis] Pulse Rate [ Left Radial] Pulse Rate [ Right Dorsalis Pedis] Pulse Rate [ Right Radial] Respiratory 17 13 24 Rate Blood Pressure 107/55 103/52 117/60 O2 Sat by Pulse 100 100 100 Oximetry O2 Sat by Pulse Oximetry [ Anterior Bilateral Throughout] 01/27/21 01/27/21 01/27/21 09:31 09:40 09:50 Temperature Pulse Rate 94 H 97 H Pulse Rate [ From Monitor] Pulse Rate [ Left Dorsalis Pedis] Pulse Rate [ Left Radial] Pulse Rate [ Right Dorsalis Pedis] Pulse Rate [ Right Radial] Respiratory 16 16 Rate Blood Pressure 117/60 117/60 113/56 O2 Sat by Pulse 100 100 Oximetry O2 Sat by Pulse Oximetry [ Anterior Bilateral Throughout] 01/27/21 01/27/21 01/27/21 10:00 10:10 10:20 Temperature Pulse Rate 96 H 95 H 92 H Pulse Rate [ From Monitor] Pulse Rate [ Left Dorsalis Pedis] Pulse Rate [ Left Radial] Pulse Rate [ Right Dorsalis Pedis] Pulse Rate [ Right Radial] Respiratory 14 20 16 Rate Blood Pressure 109/56 109/56 129/66 O2 Sat by Pulse 100 100 100 Oximetry O2 Sat by Pulse Oximetry [ Anterior Bilateral Throughout] 01/27/21 01/27/21 01/27/21 10:30 10:40 10:50 Temperature Pulse Rate 92 H 100 H 90 Pulse Rate [ From Monitor] Pulse Rate [ Left Dorsalis Pedis] Pulse Rate [ Left Radial] Pulse Rate [ Right Dorsalis Pedis] Pulse Rate [ Right Radial] Respiratory 27 H Rate Blood Pressure 129/66 115/62 123/60 O2 Sat by Pulse 90 96 100 Oximetry O2 Sat by Pulse Oximetry [ Anterior Bilateral Throughout] 01/27/21 01/27/21 11:00 11:53 Temperature 97.7 F Pulse Rate 89 Pulse Rate [ From Monitor] Pulse Rate [ Left Dorsalis Pedis] Pulse Rate [ Left Radial] Pulse Rate [ Right Dorsalis Pedis] Pulse Rate [ Right Radial] Respiratory Rate Blood Pressure 114/60 O2 Sat by Pulse 100 Oximetry O2 Sat by Pulse Oximetry [ Anterior Bilateral Throughout] Constitutional: no acute distress, comatose (secondary to meds for seizure) ENT: other (orally intubated and sedated) Neck: supple Effort: normal Ascultation: Bilateral: clear Cardiovascular: regular rate and rhythm Gastrointestinal: normoactive bowel sounds Integumentary: normal Extremities: no edema, pulses normal CBC and BMP: 01/26/21 06:47 01/26/21 06:47 ABG, PT/INR, D-dimer: ABG ABG pH 7.509 (7.320-7.450) H 01/26/21 05:00 POC ABG pCO2 35.8 mmHg (32.0-48.0) 01/26/21 05:00 ABG pCO2 39.5 mm Hg 01/22/21 04:00 POC ABG pO2 87.7 mmHg (83-108) 01/26/21 05:00 ABG pO2 118.8 mm Hg (80.0-90.0) H 01/22/21 04:00 POC ABG HCO3 27.9 01/26/21 05:00 ABG O2 Saturation 97.1 (0-100) 01/26/21 05:00 PT/INR, D-dimer PT 15.2 Sec. (12.2-14.9) H 01/22/21 04:20 INR 1.15 (0.87-1.13) H 01/22/21 04:20 Abnormal lab findings: Abnormal Labs 01/12/21 01/12/21 01/12/21 14:12 14:36 14:36 WBC 11.2 H RBC Hgb Hct MCV MCH 27 L RDW 21.0 H Plt Count Lymph % (Auto) Lymph # (Auto) Seg Neutrophils % 79.6 H Seg Neutrophils # 8.9 H PT INR ABG pH POC ABG pCO2 POC ABG pO2 ABG pO2 ABG Hemoglobin ABG Oxyhemoglobin ABG Sodium ABG Potassium ABG Glucose Carboxyhemoglobin Sodium 136 L Potassium Chloride 95.8 L Carbon Dioxide 19 L BUN Creatinine 2.0 H Glucose 163 H POC Glucose 166 H Calcium 8.2 L Phosphorus Ammonia Total Protein 5.4 L Albumin 3.4 L TSH Arterial Blood Glucose Arterial Blood Ionized Calcium Phenytoin Valproic Acid 01/13/21 01/13/21 01/13/21 05:19 12:14 16:16 WBC RBC Hgb Hct MCV MCH RDW Plt Count Lymph % (Auto) Lymph # (Auto) Seg Neutrophils % Seg Neutrophils # PT INR ABG pH POC ABG pCO2 POC ABG pO2 ABG pO2 ABG Hemoglobin ABG Oxyhemoglobin ABG Sodium ABG Potassium ABG Glucose Carboxyhemoglobin Sodium 134 L Potassium Chloride 95.5 L Carbon Dioxide BUN 23 H Creatinine 2.6 H Glucose 168 H POC Glucose 142 H 163 H Calcium Phosphorus Ammonia Total Protein 5.8 L Albumin 3.3 L TSH Arterial Blood Glucose Arterial Blood Ionized Calcium Phenytoin Valproic Acid 01/13/21 01/13/21 01/14/21 20:22 23:57 06:31 WBC RBC Hgb Hct MCV MCH RDW Plt Count Lymph % (Auto) Lymph # (Auto) Seg Neutrophils % Seg Neutrophils # PT INR ABG pH POC ABG pCO2 POC ABG pO2 ABG pO2 ABG Hemoglobin ABG Oxyhemoglobin ABG Sodium ABG Potassium ABG Glucose Carboxyhemoglobin Sodium Potassium Chloride Carbon Dioxide BUN Creatinine Glucose POC Glucose 209 H 189 H 236 H Calcium Phosphorus Ammonia Total Protein Albumin TSH Arterial Blood Glucose Arterial Blood Ionized Calcium Phenytoin Valproic Acid 01/14/21 01/14/21 01/14/21 08:57 08:57 12:22 WBC 12.0 H RBC Hgb 11.3 L Hct 34.5 L MCV MCH RDW 20.6 H Plt Count Lymph % (Auto) 6.4 L Lymph # (Auto) 0.8 L Seg Neutrophils % 87.4 H Seg Neutrophils # 10.5 H PT INR ABG pH POC ABG pCO2 POC ABG pO2 ABG pO2 ABG Hemoglobin ABG Oxyhemoglobin ABG Sodium ABG Potassium ABG Glucose Carboxyhemoglobin Sodium 131 L Potassium Chloride 93.7 L Carbon Dioxide BUN 37 H Creatinine 3.7 H Glucose 261 H POC Glucose 280 H Calcium Phosphorus Ammonia Total Protein Albumin TSH Arterial Blood Glucose Arterial Blood Ionized Calcium Phenytoin Valproic Acid 01/14/21 01/14/21 01/15/21 16:15 22:28 04:43 WBC RBC Hgb Hct MCV MCH RDW Plt Count Lymph % (Auto) Lymph # (Auto) Seg Neutrophils % Seg Neutrophils # PT INR ABG pH POC ABG pCO2 POC ABG pO2 ABG pO2 ABG Hemoglobin ABG Oxyhemoglobin ABG Sodium ABG Potassium ABG Glucose Carboxyhemoglobin Sodium Potassium Chloride Carbon Dioxide BUN Creatinine Glucose POC Glucose 289 H 252 H 243 H Calcium Phosphorus Ammonia Total Protein Albumin TSH Arterial Blood Glucose Arterial Blood Ionized Calcium Phenytoin Valproic Acid 01/15/21 01/15/21 01/15/21 05:22 05:22 08:56 WBC 11.1 H RBC Hgb 11.0 L Hct 33.3 L MCV 83 L MCH 27 L RDW 20.6 H Plt Count Lymph % (Auto) 6.3 L Lymph # (Auto) 0.7 L Seg Neutrophils % 88.2 H Seg Neutrophils # 9.8 H PT INR ABG pH POC ABG pCO2 POC ABG pO2 ABG pO2 ABG Hemoglobin ABG Oxyhemoglobin ABG Sodium ABG Potassium ABG Glucose Carboxyhemoglobin Sodium 130 L Potassium Chloride 92.0 L Carbon Dioxide BUN 49 H Creatinine 4.2 H Glucose 241 H POC Glucose Calcium Phosphorus Ammonia Total Protein Albumin TSH Arterial Blood Glucose Arterial Blood Ionized Calcium Phenytoin Valproic Acid 45.9 L 01/15/21 01/15/21 01/15/21 16:42 18:14 23:10 WBC RBC Hgb Hct MCV MCH RDW Plt Count Lymph % (Auto) Lymph # (Auto) Seg Neutrophils % Seg Neutrophils # PT INR ABG pH 7.463 H POC ABG pCO2 POC ABG pO2 377.4 H ABG pO2 ABG Hemoglobin 11.6 L ABG Oxyhemoglobin 98.6 H ABG Sodium 130.1 L ABG Potassium ABG Glucose 254 H Carboxyhemoglobin Sodium Potassium Chloride Carbon Dioxide BUN Creatinine Glucose POC Glucose 218 H 279 H Calcium Phosphorus Ammonia Total Protein Albumin TSH Arterial Blood Glucose 254 H Arterial Blood Ionized Calcium 4.5 L Phenytoin Valproic Acid 01/16/21 01/16/21 01/16/21 03:10 05:11 05:17 WBC RBC Hgb 10.4 L Hct 31.8 L MCV MCH 27 L RDW 20.3 H Plt Count 132 L Lymph % (Auto) Lymph # (Auto) Seg Neutrophils % Seg Neutrophils # PT INR ABG pH POC ABG pCO2 POC ABG pO2 174.4 H ABG pO2 ABG Hemoglobin 10.3 L ABG Oxyhemoglobin 98.6 H ABG Sodium 129.9 L ABG Potassium 3.2 L ABG Glucose 202 H Carboxyhemoglobin Sodium Potassium Chloride Carbon Dioxide BUN Creatinine Glucose POC Glucose 193 H Calcium Phosphorus Ammonia Total Protein Albumin TSH Arterial Blood Glucose 202 H Arterial Blood Ionized Calcium Phenytoin Valproic Acid 01/16/21 01/16/21 01/16/21 05:17 09:15 11:33 WBC RBC Hgb Hct MCV MCH RDW Plt Count Lymph % (Auto) Lymph # (Auto) Seg Neutrophils % Seg Neutrophils # PT INR ABG pH POC ABG pCO2 POC ABG pO2 ABG pO2 ABG Hemoglobin ABG Oxyhemoglobin ABG Sodium ABG Potassium ABG Glucose Carboxyhemoglobin Sodium Potassium 3.4 L Chloride Carbon Dioxide BUN 36 H Creatinine 3.2 H Glucose 216 H POC Glucose 174 H Calcium 8.3 L Phosphorus 1.10 L Ammonia Total Protein Albumin TSH Arterial Blood Glucose Arterial Blood Ionized Calcium Phenytoin 6.5 L Valproic Acid 01/16/21 01/17/21 01/17/21 18:13 00:10 04:00 WBC RBC Hgb Hct MCV MCH RDW Plt Count Lymph % (Auto) Lymph # (Auto) Seg Neutrophils % Seg Neutrophils # PT INR ABG pH POC ABG pCO2 POC ABG pO2 ABG pO2 ABG Hemoglobin 10.1 L ABG Oxyhemoglobin ABG Sodium 130.1 L ABG Potassium 3.3 L ABG Glucose 153 H Carboxyhemoglobin Sodium Potassium Chloride Carbon Dioxide BUN Creatinine Glucose POC Glucose 162 H 150 H Calcium Phosphorus Ammonia Total Protein Albumin TSH Arterial Blood Glucose 153 H Arterial Blood Ionized Calcium Phenytoin Valproic Acid 01/17/21 01/17/21 01/17/21 05:30 05:48 11:14 WBC RBC Hgb Hct MCV MCH RDW Plt Count Lymph % (Auto) Lymph # (Auto) Seg Neutrophils % Seg Neutrophils # PT INR ABG pH POC ABG pCO2 POC ABG pO2 ABG pO2 ABG Hemoglobin ABG Oxyhemoglobin ABG Sodium ABG Potassium ABG Glucose Carboxyhemoglobin Sodium 136 L Potassium 3.5 L Chloride Carbon Dioxide BUN 48 H Creatinine 3.5 H Glucose 165 H POC Glucose 149 H Calcium 8.0 L Phosphorus 0.80 L* D Ammonia 22.0 L Total Protein Albumin TSH Arterial Blood Glucose Arterial Blood Ionized Calcium Phenytoin Valproic Acid 01/17/21 01/17/21 01/17/21 11:43 17:34 18:46 WBC RBC Hgb Hct MCV MCH RDW Plt Count Lymph % (Auto) Lymph # (Auto) Seg Neutrophils % Seg Neutrophils # PT INR ABG pH POC ABG pCO2 POC ABG pO2 ABG pO2 ABG Hemoglobin ABG Oxyhemoglobin ABG Sodium ABG Potassium ABG Glucose Carboxyhemoglobin Sodium Potassium Chloride Carbon Dioxide BUN Creatinine Glucose POC Glucose 160 H 209 H Calcium Phosphorus 2.20 L D Ammonia Total Protein Albumin TSH Arterial Blood Glucose Arterial Blood Ionized Calcium Phenytoin Valproic Acid 01/17/21 01/17/21 01/18/21 19:00 23:19 03:28 WBC RBC Hgb Hct MCV MCH RDW Plt Count Lymph % (Auto) Lymph # (Auto) Seg Neutrophils % Seg Neutrophils # PT INR ABG pH POC ABG pCO2 POC ABG pO2 190.2 H ABG pO2 ABG Hemoglobin 11.9 L ABG Oxyhemoglobin 98.5 H ABG Sodium 130.9 L 131.0 L ABG Potassium 3.0 L 2.8 L ABG Glucose 241 H Carboxyhemoglobin Sodium Potassium Chloride Carbon Dioxide BUN Creatinine Glucose POC Glucose 222 H Calcium Phosphorus Ammonia Total Protein Albumin TSH Arterial Blood Glucose 241 H Arterial Blood Ionized Calcium 4.5 L Phenytoin Valproic Acid 01/18/21 01/18/21 01/18/21 04:16 06:20 10:20 WBC 14.1 H RBC Hgb 11.2 L Hct 34.5 L MCV 83 L MCH 27 L RDW 20.8 H Plt Count 116 L Lymph % (Auto) Lymph # (Auto) Seg Neutrophils % Seg Neutrophils # PT INR ABG pH POC ABG pCO2 POC ABG pO2 ABG pO2 ABG Hemoglobin ABG Oxyhemoglobin ABG Sodium ABG Potassium ABG Glucose Carboxyhemoglobin Sodium 134 L Potassium 2.9 L* Chloride Carbon Dioxide 21 L BUN 60 H Creatinine 3.9 H Glucose POC Glucose 69 L Calcium Phosphorus 1.60 L D Ammonia Total Protein Albumin TSH Arterial Blood Glucose Arterial Blood Ionized Calcium Phenytoin Valproic Acid 01/18/21 01/18/21 01/18/21 11:29 15:30 17:23 WBC RBC Hgb Hct MCV MCH RDW Plt Count Lymph % (Auto) Lymph # (Auto) Seg Neutrophils % Seg Neutrophils # PT INR ABG pH POC ABG pCO2 POC ABG pO2 ABG pO2 ABG Hemoglobin ABG Oxyhemoglobin ABG Sodium ABG Potassium ABG Glucose Carboxyhemoglobin Sodium Potassium 3.3 L Chloride Carbon Dioxide BUN 42 H Creatinine 3.1 H Glucose 190 H POC Glucose 128 H 167 H Calcium 8.2 L Phosphorus 1.10 L D Ammonia Total Protein Albumin TSH Arterial Blood Glucose Arterial Blood Ionized Calcium Phenytoin Valproic Acid 01/18/21 01/19/21 01/19/21 23:43 03:43 04:38 WBC RBC Hgb Hct MCV MCH RDW Plt Count Lymph % (Auto) Lymph # (Auto) Seg Neutrophils % Seg Neutrophils # PT INR ABG pH 7.536 H POC ABG pCO2 27.0 L POC ABG pO2 165.8 H ABG pO2 ABG Hemoglobin 10.7 L ABG Oxyhemoglobin 98.4 H ABG Sodium 131.3 L ABG Potassium ABG Glucose 152 H Carboxyhemoglobin Sodium Potassium Chloride Carbon Dioxide BUN 55 H Creatinine 3.8 H Glucose 143 H POC Glucose 232 H Calcium Phosphorus 1.10 L Ammonia Total Protein Albumin TSH Arterial Blood Glucose 152 H Arterial Blood Ionized Calcium Phenytoin Valproic Acid 01/19/21 01/19/21 01/19/21 05:12 11:36 15:16 WBC RBC Hgb Hct MCV MCH RDW Plt Count Lymph % (Auto) Lymph # (Auto) Seg Neutrophils % Seg Neutrophils # PT INR ABG pH POC ABG pCO2 POC ABG pO2 ABG pO2 ABG Hemoglobin ABG Oxyhemoglobin ABG Sodium ABG Potassium ABG Glucose Carboxyhemoglobin Sodium Potassium Chloride Carbon Dioxide BUN Creatinine Glucose POC Glucose 135 H 201 H Calcium Phosphorus 1.10 L Ammonia Total Protein Albumin TSH Arterial Blood Glucose Arterial Blood Ionized Calcium Phenytoin Valproic Acid 01/19/21 01/19/21 01/20/21 17:55 23:22 04:00 WBC RBC Hgb Hct MCV MCH RDW Plt Count Lymph % (Auto) Lymph # (Auto) Seg Neutrophils % Seg Neutrophils # PT INR ABG pH 7.513 H POC ABG pCO2 POC ABG pO2 ABG pO2 ABG Hemoglobin 9.9 L ABG Oxyhemoglobin ABG Sodium 129.4 L ABG Potassium ABG Glucose 196 H Carboxyhemoglobin Sodium Potassium Chloride Carbon Dioxide BUN Creatinine Glucose POC Glucose 222 H 252 H Calcium Phosphorus Ammonia Total Protein Albumin TSH Arterial Blood Glucose 196 H Arterial Blood Ionized Calcium Phenytoin Valproic Acid 01/20/21 01/20/21 01/20/21 05:15 11:15 14:49 WBC 16.1 H RBC Hgb 9.9 L Hct 30.3 L MCV 82 L MCH 27 L RDW 20.7 H Plt Count 114 L Lymph % (Auto) Lymph # (Auto) Seg Neutrophils % Seg Neutrophils # PT INR ABG pH POC ABG pCO2 POC ABG pO2 ABG pO2 ABG Hemoglobin ABG Oxyhemoglobin ABG Sodium ABG Potassium ABG Glucose Carboxyhemoglobin Sodium Potassium Chloride Carbon Dioxide BUN Creatinine Glucose POC Glucose 163 H 149 H Calcium Phosphorus Ammonia Total Protein Albumin TSH Arterial Blood Glucose Arterial Blood Ionized Calcium Phenytoin Valproic Acid 01/20/21 01/20/21 01/20/21 14:49 14:49 17:12 WBC RBC Hgb Hct MCV MCH RDW Plt Count Lymph % (Auto) Lymph # (Auto) Seg Neutrophils % Seg Neutrophils # PT INR ABG pH POC ABG pCO2 POC ABG pO2 ABG pO2 ABG Hemoglobin ABG Oxyhemoglobin ABG Sodium ABG Potassium ABG Glucose Carboxyhemoglobin Sodium 133 L Potassium Chloride 95.8 L Carbon Dioxide BUN 48 H Creatinine 3.1 H Glucose 167 H POC Glucose 155 H Calcium Phosphorus 0.80 L* D Ammonia Total Protein Albumin TSH Arterial Blood Glucose Arterial Blood Ionized Calcium Phenytoin Valproic Acid 48.4 L 01/21/21 01/21/21 01/21/21 00:55 05:20 06:39 WBC 17.5 H RBC 3.62 L Hgb 9.6 L Hct 29.7 L MCV 82 L MCH 26 L RDW 21.4 H Plt Count 126 L Lymph % (Auto) Lymph # (Auto) Seg Neutrophils % Seg Neutrophils # PT INR ABG pH POC ABG pCO2 POC ABG pO2 ABG pO2 ABG Hemoglobin ABG Oxyhemoglobin ABG Sodium ABG Potassium ABG Glucose Carboxyhemoglobin Sodium Potassium Chloride Carbon Dioxide BUN Creatinine Glucose POC Glucose 134 H 170 H Calcium Phosphorus Ammonia Total Protein Albumin TSH Arterial Blood Glucose Arterial Blood Ionized Calcium Phenytoin Valproic Acid 01/21/21 01/21/21 01/21/21 06:39 11:32 17:41 WBC RBC Hgb Hct MCV MCH RDW Plt Count Lymph % (Auto) Lymph # (Auto) Seg Neutrophils % Seg Neutrophils # PT INR ABG pH POC ABG pCO2 POC ABG pO2 ABG pO2 ABG Hemoglobin ABG Oxyhemoglobin ABG Sodium ABG Potassium ABG Glucose Carboxyhemoglobin Sodium 133 L Potassium Chloride 95.9 L Carbon Dioxide BUN 56 H Creatinine 3.2 H Glucose 159 H POC Glucose 159 H 137 H Calcium Phosphorus 2.30 L D Ammonia Total Protein Albumin TSH Arterial Blood Glucose Arterial Blood Ionized Calcium Phenytoin Valproic Acid 01/21/21 01/22/21 01/22/21 23:48 04:00 04:20 WBC 14.0 H RBC 3.47 L Hgb 9.3 L Hct 28.6 L MCV 83 L MCH 27 L RDW 21.4 H Plt Count 129 L Lymph % (Auto) Lymph # (Auto) Seg Neutrophils % Seg Neutrophils # PT INR ABG pH POC ABG pCO2 POC ABG pO2 ABG pO2 118.8 H ABG Hemoglobin 9.6 L ABG Oxyhemoglobin ABG Sodium ABG Potassium ABG Glucose Carboxyhemoglobin Sodium Potassium Chloride Carbon Dioxide BUN Creatinine Glucose POC Glucose 203 H Calcium Phosphorus Ammonia Total Protein Albumin TSH Arterial Blood Glucose Arterial Blood Ionized Calcium Phenytoin Valproic Acid 01/22/21 01/22/21 01/22/21 04:20 04:20 04:20 WBC RBC Hgb Hct MCV MCH RDW Plt Count Lymph % (Auto) Lymph # (Auto) Seg Neutrophils % Seg Neutrophils # PT INR ABG pH POC ABG pCO2 POC ABG pO2 ABG pO2 ABG Hemoglobin ABG Oxyhemoglobin ABG Sodium ABG Potassium ABG Glucose Carboxyhemoglobin Sodium 131 L Potassium Chloride 92.9 L Carbon Dioxide 21 L BUN 69 H Creatinine 3.9 H Glucose 230 H POC Glucose Calcium 8.1 L Phosphorus Ammonia 19.0 L Total Protein 5.2 L Albumin 1.9 L TSH 4.730 H Arterial Blood Glucose Arterial Blood Ionized Calcium Phenytoin Valproic Acid 01/22/21 01/22/21 01/22/21 04:20 05:14 11:36 WBC RBC Hgb Hct MCV MCH RDW Plt Count Lymph % (Auto) Lymph # (Auto) Seg Neutrophils % Seg Neutrophils # PT 15.2 H INR 1.15 H ABG pH POC ABG pCO2 POC ABG pO2 ABG pO2 ABG Hemoglobin ABG Oxyhemoglobin ABG Sodium ABG Potassium ABG Glucose Carboxyhemoglobin Sodium Potassium Chloride Carbon Dioxide BUN Creatinine Glucose POC Glucose 213 H 151 H Calcium Phosphorus Ammonia Total Protein Albumin TSH Arterial Blood Glucose Arterial Blood Ionized Calcium Phenytoin Valproic Acid 01/22/21 01/23/21 01/23/21 17:47 00:06 04:41 WBC 18.5 H RBC 3.43 L Hgb 9.0 L Hct 28.1 L MCV 82 L MCH 26 L RDW 21.6 H Plt Count Lymph % (Auto) Lymph # (Auto) Seg Neutrophils % Seg Neutrophils # PT INR ABG pH POC ABG pCO2 POC ABG pO2 ABG pO2 ABG Hemoglobin ABG Oxyhemoglobin ABG Sodium ABG Potassium ABG Glucose Carboxyhemoglobin Sodium Potassium Chloride Carbon Dioxide BUN Creatinine Glucose POC Glucose 271 H 295 H Calcium Phosphorus Ammonia Total Protein Albumin TSH Arterial Blood Glucose Arterial Blood Ionized Calcium Phenytoin Valproic Acid 01/23/21 01/23/21 01/23/21 04:41 05:31 11:54 WBC RBC Hgb Hct MCV MCH RDW Plt Count Lymph % (Auto) Lymph # (Auto) Seg Neutrophils % Seg Neutrophils # PT INR ABG pH POC ABG pCO2 POC ABG pO2 ABG pO2 ABG Hemoglobin ABG Oxyhemoglobin ABG Sodium ABG Potassium ABG Glucose Carboxyhemoglobin Sodium 135 L Potassium Chloride Carbon Dioxide BUN 53 H Creatinine 3.1 H Glucose 187 H POC Glucose 183 H 178 H Calcium Phosphorus Ammonia Total Protein Albumin TSH Arterial Blood Glucose Arterial Blood Ionized Calcium Phenytoin Valproic Acid 01/23/21 01/23/21 01/24/21 17:54 23:15 05:27 WBC RBC Hgb Hct MCV MCH RDW Plt Count Lymph % (Auto) Lymph # (Auto) Seg Neutrophils % Seg Neutrophils # PT INR ABG pH POC ABG pCO2 POC ABG pO2 ABG pO2 ABG Hemoglobin ABG Oxyhemoglobin ABG Sodium ABG Potassium ABG Glucose Carboxyhemoglobin Sodium Potassium Chloride Carbon Dioxide BUN Creatinine Glucose POC Glucose 243 H 241 H 298 H Calcium Phosphorus Ammonia Total Protein Albumin TSH Arterial Blood Glucose Arterial Blood Ionized Calcium Phenytoin Valproic Acid 01/24/21 01/24/21 01/24/21 12:00 17:26 23:53 WBC RBC Hgb Hct MCV MCH RDW Plt Count Lymph % (Auto) Lymph # (Auto) Seg Neutrophils % Seg Neutrophils # PT INR ABG pH POC ABG pCO2 POC ABG pO2 ABG pO2 ABG Hemoglobin ABG Oxyhemoglobin ABG Sodium ABG Potassium ABG Glucose Carboxyhemoglobin Sodium Potassium Chloride Carbon Dioxide BUN Creatinine Glucose POC Glucose 259 H 178 H 251 H Calcium Phosphorus Ammonia Total Protein Albumin TSH Arterial Blood Glucose Arterial Blood Ionized Calcium Phenytoin Valproic Acid 01/25/21 01/25/21 01/25/21 04:54 06:02 11:27 WBC RBC Hgb Hct MCV MCH RDW Plt Count Lymph % (Auto) Lymph # (Auto) Seg Neutrophils % Seg Neutrophils # PT INR ABG pH POC ABG pCO2 POC ABG pO2 ABG pO2 ABG Hemoglobin ABG Oxyhemoglobin ABG Sodium ABG Potassium ABG Glucose Carboxyhemoglobin Sodium Potassium Chloride Carbon Dioxide BUN Creatinine Glucose POC Glucose 235 H 209 H Calcium Phosphorus 2.20 L Ammonia Total Protein Albumin TSH Arterial Blood Glucose Arterial Blood Ionized Calcium Phenytoin Valproic Acid 01/25/21 01/25/21 01/26/21 17:32 23:36 05:00 WBC RBC Hgb Hct MCV MCH RDW Plt Count Lymph % (Auto) Lymph # (Auto) Seg Neutrophils % Seg Neutrophils # PT INR ABG pH 7.509 H POC ABG pCO2 POC ABG pO2 ABG pO2 ABG Hemoglobin 8.7 L ABG Oxyhemoglobin ABG Sodium 130.9 L ABG Potassium 5.5 H ABG Glucose 219 H Carboxyhemoglobin 1.7 H Sodium Potassium Chloride Carbon Dioxide BUN Creatinine Glucose POC Glucose 249 H 183 H Calcium Phosphorus Ammonia Total Protein Albumin TSH Arterial Blood Glucose 219 H Arterial Blood Ionized Calcium 4.3 L Phenytoin Valproic Acid 01/26/21 01/26/21 01/26/21 05:21 06:47 06:47 WBC 21.6 H RBC 3.18 L Hgb 8.4 L Hct 26.6 L MCV MCH 27 L RDW 21.8 H Plt Count Lymph % (Auto) Lymph # (Auto) Seg Neutrophils % Seg Neutrophils # PT INR ABG pH POC ABG pCO2 POC ABG pO2 ABG pO2 ABG Hemoglobin ABG Oxyhemoglobin ABG Sodium ABG Potassium ABG Glucose Carboxyhemoglobin Sodium 133 L Potassium 5.6 H D Chloride 94.5 L Carbon Dioxide BUN 73 H Creatinine 3.6 H Glucose 245 H POC Glucose 179 H Calcium Phosphorus Ammonia Total Protein Albumin TSH Arterial Blood Glucose Arterial Blood Ionized Calcium Phenytoin Valproic Acid 01/26/21 01/26/21 01/26/21 11:36 17:41 23:12 WBC RBC Hgb Hct MCV MCH RDW Plt Count Lymph % (Auto) Lymph # (Auto) Seg Neutrophils % Seg Neutrophils # PT INR ABG pH POC ABG pCO2 POC ABG pO2 ABG pO2 ABG Hemoglobin ABG Oxyhemoglobin ABG Sodium ABG Potassium ABG Glucose Carboxyhemoglobin Sodium Potassium Chloride Carbon Dioxide BUN Creatinine Glucose POC Glucose 235 H 174 H 178 H Calcium Phosphorus Ammonia Total Protein Albumin TSH Arterial Blood Glucose Arterial Blood Ionized Calcium Phenytoin Valproic Acid 01/27/21 01/27/21 05:26 11:43 WBC RBC Hgb Hct MCV MCH RDW Plt Count Lymph % (Auto) Lymph # (Auto) Seg Neutrophils % Seg Neutrophils # PT INR ABG pH POC ABG pCO2 POC ABG pO2 ABG pO2 ABG Hemoglobin ABG Oxyhemoglobin ABG Sodium ABG Potassium ABG Glucose Carboxyhemoglobin Sodium Potassium Chloride Carbon Dioxide BUN Creatinine Glucose POC Glucose 179 H 207 H Calcium Phosphorus Ammonia Total Protein Albumin TSH Arterial Blood Glucose Arterial Blood Ionized Calcium Phenytoin Valproic Acid
[2021-01-27] MEDS: levETIRAcetam 500 MG/5 ML ORAL LIQD PO SCH (21:35)
[2021-01-27] MEDS: INSULIN GLARGINE 100 UNITS/ML SUB-Q SCH (21:36)
[2021-01-28] MEDS: SENNOSIDES 8.6 MG TAB PO SCH ×3 (01:09→18:14)
[2021-01-28] MEDS: PHOS-NAK POWDER PACKET PO SCH (05:54)
[2021-01-28] MEDS: INSULIN LISPRO 100 UNIT/ML SUB-Q SCH ×4 (05:54→18:12)
[2021-01-28 07:00] LABS: Calcium 7.8 mg/dL (8.4-10.2)
[2021-01-28] MEDS ORDERED: D5W/0.45% NACL 1,000 ML IV SCH (08:00)
[2021-01-28] MEDS: LINAGLIPTIN 5 MG TAB PO SCH (08:09)
[2021-01-28] MEDS ORDERED: SODIUM POLYSTYRENE 15 GM/60 ML ORAL LIQD PO ONE (09:00)
[2021-01-28] MEDS: CALCITRIOL 0.5 MCG CAP PO SCH (09:51)
[2021-01-28] MEDS: DOXAZOSIN 1 MG TAB PO SCH (09:51)
[2021-01-28] MEDS: LANSOPRAZOLE 30 MG SOLUTAB FEEDTUBE SCH ×2 (09:52→21:23)
[2021-01-28] MEDS: TIMOLOL 0.5% OPHTH SOLN 5 ML OU SCH (09:53)
[2021-01-28] MEDS ORDERED: HEPARIN 10,000 UNITS/10 ML VIAL IV PRN (10:39)
--- NOTE | 2021-01-28 10:39 | Progress Note ---
Assessment and Plan 1.ESRD: Patient is on maintenance hemodialysis three times a week, TTS schedule. Last outpatient HD 01/12/2021. Meds dosage based on GFR. Hemodialysis: 01/15, 01/16, 01/17(UF), 01/18, 01/22, 01/24, 01/26. HD today due to hyperkalemia and pt scheduled for Trach tomorrow. 2. FEN: Hyperkalemia, HD today. Volume overload, UF with HD. Hyponatremia, improved, monitor. Monitor lytes and volume status. 3. Acute resp failure: Currently intubated, on vent. Extubated 01/17. Re-intubated 01/17. Await Trach. 4. Shock: Off pressors. Monitor. 5. New onset of possible witnessed seizure during dialysis: CT brain remarkable for white matter changes. MRI brain: small SDH, chronic changes. On Keppra. Seizure precaution. Seen by Neuro. 6. Advanced dementia: CT white matter changes. 7. Failure to thrive: PEG tube. 8. Anemia, POA: Epogen with HD. 9. DM type 2. 10. Acute metabolic encephalopathy: Followed by Neuro. Subjective: Patient was seen and examined at the bedside. Examination: General appearance: well-developed, appears stated age, no distress, intubated, on vent, FiO2 25% HEENT: ATNC, pupils equal Neck: Trachea midline Respiratory: ctab Cardiology: regular, S1S2, no murmur Abdomen: soft, not tender, BS heard, Peg tube noted Integumentary: warm, dry, no obvious rash Neurologic: not responding Ext: trace dependent edema noted Hemodialysis catheter: R IJ tunnel catheter Subjective Date of service: 01/28/21 Principal diagnosis: witnessed seizure hx of ESRD ,hyponatremia Objective - Vital Signs Vital signs: Vital Signs - 12hr 01/27/21 01/27/21 01/27/21 23:00 23:27 23:30 Temperature Pulse Rate 98 H 98 H 98 H Pulse Rate [ From Monitor] Respiratory 16 19 19 Rate Blood Pressure 137/66 130/67 134/63 O2 Sat by Pulse 100 100 99 Oximetry 01/27/21 01/27/21 01/28/21 23:31 23:52 00:00 Temperature 99.6 F Pulse Rate 97 H 98 H Pulse Rate [ From Monitor] Respiratory 15 18 Rate Blood Pressure 134/63 125/64 O2 Sat by Pulse 100 99 Oximetry 01/28/21 01/28/21 01/28/21 00:24 00:30 01:00 Temperature Pulse Rate 100 H 98 H 97 H Pulse Rate [ From Monitor] Respiratory 20 14 Rate Blood Pressure 125/64 136/70 129/63 O2 Sat by Pulse 97 100 100 Oximetry 01/28/21 01/28/21 01/28/21 01:30 02:00 02:30 Temperature Pulse Rate 96 H 97 H 96 H Pulse Rate [ From Monitor] Respiratory 16 16 16 Rate Blood Pressure 136/63 133/68 144/65 O2 Sat by Pulse 100 100 100 Oximetry 01/28/21 01/28/21 01/28/21 03:00 03:30 04:00 Temperature 99.7 F H Pulse Rate 99 H 97 H 95 H Pulse Rate [ From Monitor] Respiratory 25 H 24 26 H Rate Blood Pressure 149/62 132/69 120/62 O2 Sat by Pulse 100 100 100 Oximetry 01/28/21 01/28/21 01/28/21 04:22 04:30 04:37 Temperature Pulse Rate 99 H 99 H 97 H Pulse Rate [ From Monitor] Respiratory 22 Rate Blood Pressure 154/70 154/70 O2 Sat by Pulse 100 100 Oximetry 01/28/21 01/28/21 01/28/21 05:00 05:30 06:00 Temperature Pulse Rate 96 H 97 H 97 H Pulse Rate [ From Monitor] Respiratory 14 19 16 Rate Blood Pressure 129/61 135/69 139/67 O2 Sat by Pulse 99 100 100 Oximetry 01/28/21 01/28/21 01/28/21 06:30 07:00 07:30 Temperature 98.0 F Pulse Rate 96 H 103 H 96 H Pulse Rate [ From Monitor] Respiratory 18 28 H 15 Rate Blood Pressure 150/69 127/62 151/70 O2 Sat by Pulse 100 86 100 Oximetry 01/28/21 01/28/21 01/28/21 07:39 08:00 08:30 Temperature Pulse Rate 99 H 96 H 98 H Pulse Rate [ 96 H From Monitor] Respiratory 14 18 Rate Blood Pressure 151/70 141/69 144/73 O2 Sat by Pulse 100 100 100 Oximetry 01/28/21 01/28/21 01/28/21 09:00 09:30 09:51 Temperature Pulse Rate 99 H 101 H Pulse Rate [ From Monitor] Respiratory 20 17 Rate Blood Pressure 147/82 151/71 153/76 O2 Sat by Pulse 100 Oximetry 01/28/21 01/28/21 10:00 10:30 Temperature Pulse Rate 101 H 101 H Pulse Rate [ From Monitor] Respiratory 22 19 Rate Blood Pressure 144/67 160/82 O2 Sat by Pulse 99 100 Oximetry - Lab 01/26/21 06:47 01/28/21 05:18 Most recent lab results ABG pH 7.509 (7.320-7.450) H 01/26/21 05:00 ABG pCO2 39.5 mm Hg 01/22/21 04:00 ABG pO2 118.8 mm Hg (80.0-90.0) H 01/22/21 04:00 ABG HCO3 24.5 mmol/L (20.0-26.0) 01/22/21 04:00 ABG O2 Saturation 97.1 (0-100) 01/26/21 05:00 Calcium 7.8 mg/dL (8.4-10.2) L 01/28/21 05:18 Phosphorus 2.20 mg/dL (2.5-4.5) L 01/25/21 06:02 Magnesium 2.00 mg/dL (1.7-2.3) 01/22/21 04:20 Medications & Allergies - Medications Allergies/Adverse Reactions: Allergies No Known Allergies Allergy (Verified 08/14/19 16:11) Home Medications: Home Medications Medication Instructions Recorded Confirmed Last Taken Type Alogliptin Benzoate [Alogliptin] 1 tab PO DAILY 10/02/20 01/23/21 Unknown History AtorvaSTATin [Lipitor] 40 mg PO QHS #30 10/11/20 01/23/21 Unknown Rx Doxazosin [Cardura] 4 mg PO QDAY #30 10/11/20 01/23/21 Unknown Rx Febuxostat 40 mg PO QDAY #30 10/11/20 01/23/21 Unknown Rx Ketotifen Fumarate 1 drop OU QDAY #1 bottle 10/11/20 01/23/21 Unknown Rx Lansoprazole Solutab [Prevacid 30 mg FEEDTUBE BID #60 tab.rapdis 10/11/20 01/23/21 Unknown Rx Solutab] Megestrol Acetate 40 mg PO QDAY #30 10/11/20 01/23/21 Unknown Rx Metoprolol [Lopressor TAB] 12.5 mg PO BID #60 tablet 10/11/20 01/23/21 Unknown Rx calcitrioL [Rocaltrol] 1 mcg PO QDAY #30 cap 10/11/20 01/23/21 Unknown Rx timoloL maleate [Timolol Maleate 1 drop OP BID #1 bottle 10/11/20 01/23/21 Unknown Rx 0.25%] Insulin Lispro [Humalog] 0 units SUB-Q QID 01/23/21 01/23/21 Unknown History Active Medications: Generic Name Dose Route Start Last Admin Trade Name Freq PRN Reason Stop Dose Admin Acetaminophen 650 mg 01/12/21 19:30 Acetaminophen 325 Mg Tab PO Q4H PRN Pain MILD(1-3)/Fever >100.5/ABEL Albuterol 2.5 mg 01/12/21 19:30 Albuterol 2.5 Mg/3 Ml Nebu IH Q4HRT PRN Shortness Of Breath Lipase/Protease/Amylase 1 each 01/13/21 10:11 01/27/21 09:43 Lipase 10,500/Protease 25,000/Amylase 43,750 (Units) Dr Silveira FEEDTUBE 1 each PRN PRN Administration For Clogged Feeding Tube Atorvastatin Calcium 40 mg 01/12/21 22:00 01/27/21 21:37 Atorvastatin 40 Mg Tab PO 40 mg QHS NOLAN Administration Calcitriol 1 mcg 01/13/21 10:00 01/28/21 09:51 Calcitriol 0.5 Mcg Cap PO 1 mcg QDAY NOLAN Administration Docusate Sodium 100 mg 01/17/21 09:00 Docusate Sodium 100 Mg/10 Ml Oral Liqd PO BID PRN Constipation Doxazosin Mesylate 2 mg 01/18/21 10:00 01/28/21 09:51 Doxazosin 1 Mg Tab PO 2 mg QDAY NOLAN Administration Hydrophilic Ointment 1 applic 01/15/21 17:14 Lip Therapy Vaseline TP Q2HR PRN Dry Lips Sodium Chloride 100 mls @ 999 mls/hr 01/26/21 12:29 Nacl 0.9% IV DIONNA PRN Hypotension Dextrose/Sodium Chloride 1,000 mls @ 42 mls/hr 01/28/21 08:00 D5/0.45ns IV DIRECT NOLAN Insulin Glargine 5 units 01/25/21 22:00 01/27/21 21:36 Insulin Glargine 100 Units/Ml SUB-Q 5 units QHS NOLAN Administration Insulin Human Lispro 0 unit 01/16/21 00:00 01/28/21 05:54 Insulin Lispro 100 Unit/Ml SUB-Q Not Given Q6HR [facility] Protocol Lansoprazole 30 mg 01/12/21 22:00 01/28/21 09:52 Lansoprazole 30 Mg Solutab FEEDTUBE 30 mg BID NOLAN Administration Levetiracetam 250 mg 01/23/21 22:00 01/27/21 21:35 Levetiracetam 500 Mg/5 Ml Oral Liqd PO 250 mg QHS NOLAN Administration Linagliptin 5 mg 01/13/21 11:00 01/28/21 08:09 Linagliptin 5 Mg Tab PO 5 mg QDDIAB NOLAN Administration Multi-Ingred Cream/Lotion/Oil/Oint 1 applic 01/15/21 17:14 Mineral Oil/Petrolatum, White Ophth Oint 3.5 Gm OU Q4HR PRN Dry Eye(s) Scopolamine 1 each 01/28/21 11:00 Scopolamine Transdermal Patch 72 Hr TD Q3D NOLAN Senna 17.2 mg 01/25/21 10:00 01/28/21 10:28 Sennosides 8.6 Mg Tab PO 17.2 mg Q8H NOLAN Administration Simple Syrup 15 ml 01/13/21 10:11 01/18/21 06:54 Simple Syrup 15 Ml FEEDTUBE 15 ml PRN PRN Administration Hypoglycemia Simple Syrup 30 ml 01/13/21 10:11 Simple Syrup 15 Ml FEEDTUBE PRN PRN Hypoglycemia Sodium Bicarbonate 325 mg 01/13/21 10:11 01/27/21 09:43 Sodium Bicarbonate 325 Mg Tab FEEDTUBE 325 mg PRN PRN Administration For Clogged Feeding Tube Sodium Chloride 10 ml 01/12/21 22:00 01/28/21 09:53 Sodium Chloride 0.9% 10 Ml Flush Syringe IV 10 ml BID NOLAN Administration Timolol Maleate 1 drops 01/17/21 10:00 01/28/21 09:53 Timolol 0.5% Ophth Soln 5 Ml OU 1 drops QDAY NOLAN Administration
--- NOTE | 2021-01-28 10:53 | Progress Note ---
Assessment and Plan 80 y/o with chronic seizure disorder, ESRD, HTN admitted with status epilepticus, requiring intubation for burst suppression. 01/28/21: CM to follow up with today in regards to final decision. Patient is tentatively scheduled for surgery tomorrow. Reached out to renal to ask them to dialyze today to help with fluid and electrolytes so that there would be no issues or interruptions for tomorrow. Continues to fail PSV with episodes of apnea. Follow up any new surgery recs for today. Did order coags. Poor prognosis given lack of mental recovery. This was discussed with the family at length. 01/25/21: Appreciate surgery eval on yesterday. Await anesthesia eval and discussion with family. Will restart tube feeds, add bowel regimen and give laxative today. Failed PSV again today as he was having periods of apnea. Gu arded to poor prognosis. 01/24/21: Consult Dr. Guerrero for trach, patient already has peg. Continue supportive measures. Guarded to poor prognosis. 01/23/21: Long discussion with family over the phone at bedside. They had several questions about trach and weaning. Answered all questions as best as possible. Family going to discuss again today and will let us known tomorrow. Continue supportive measures. Guarded to poor prognosis. 01/22/21: Will discuss on rounds today the possibility of cutting back more on anti-epileptic meds to see if this helps with his mental state. Will reach out to family today to discuss next options and goals of care. He is currently not a candidate for extubation and may need trach and peg. Will call with CM. Continue daily PSV trials. 01/21/21: FiO2 now down to 30%. RT to attempt PSV today to see how patient tolerates. Not a candidate for extubation given his current mental state. Neuro did decrease meds more on yesterday Keppra daily and BID Valproic Acid. Will call family to update on current level of care. Overall prognosis remains guarded to poor. Will get Head CT today to rule out any new areas of ischemia or bleeding. 01/20/21: FiO2 stable on 45%. Hold on repeat Imaging for now. Will hold on Flumazenil therapy given his prior history of seizure. May need more HD tomorrow. Spoke with Daughter and over the phone to update and they asked me to call them again tomorrow. Will tell them that visiting hours are present if they choose to come. Guarded prognosis. 01/19/21: Dropped FiO2 to 45%. Await neurology eval today but need to consider repeat imaging of head as I have not explanation as to why patient is not r esponsive. Patient does not make any urine so not able to send UDS. Had HD on yesterday so next one would likely be Thursday. Renal to address electrolytes. Very very guarded prognosis. 01/18/21: EEG not officially read, but prelim is negative for seizures, just diffuse slowing. ABG is stable, not hypercapnic. Will send UDS to see if benzos are still in system. spoke with renal who will do HD today and manage electrolytes. DId order mag level given low levels of potassium. Overall prognosis is very guarded to poor. If not more responsive tomorrow, may need to consider repeat imaging of head/brain. 01/17/21: Extubate. HD today per renal. If tolerates both, transfer back to floor on new anti-epileptic regimen 1. Continue Versed at 3mg IV per Hour for the next 24 hours. 2. Repeat EEG tomorrow off Versed. 3. Will attempt to get this before HD tomorrow. 4. HD per renal, tomorrow as patient got HD yesterday CCT 31 minutes. Subjective Date of service: 01/28/21 Principal diagnosis: witnessed seizure hx of ESRD ,hyponatremia Interval history: No acute events over the weekend. Still unresponsive. K is elevated today but last HD was on Thursday likely. Lots of secretions. Objective Vital Signs - 12hr 01/27/21 01/27/21 01/27/21 23:00 23:27 23:30 Temperature Pulse Rate 98 H 98 H 98 H Pulse Rate [ From Monitor] Respiratory 16 19 19 Rate Blood Pressure 137/66 130/67 134/63 O2 Sat by Pulse 100 100 99 Oximetry 01/27/21 01/27/21 01/28/21 23:31 23:52 00:00 Temperature 99.6 F Pulse Rate 97 H 98 H Pulse Rate [ From Monitor] Respiratory 15 18 Rate Blood Pressure 134/63 125/64 O2 Sat by Pulse 100 99 Oximetry 01/28/21 01/28/21 01/28/21 00:24 00:30 01:00 Temperature Pulse Rate 100 H 98 H 97 H Pulse Rate [ From Monitor] Respiratory 20 14 Rate Blood Pressure 125/64 136/70 129/63 O2 Sat by Pulse 97 100 100 Oximetry 01/28/21 01/28/21 01/28/21 01:30 02:00 02:30 Temperature Pulse Rate 96 H 97 H 96 H Pulse Rate [ From Monitor] Respiratory 16 16 16 Rate Blood Pressure 136/63 133/68 144/65 O2 Sat by Pulse 100 100 100 Oximetry 01/28/21 01/28/21 01/28/21 03:00 03:30 04:00 Temperature 99.7 F H Pulse Rate 99 H 97 H 95 H Pulse Rate [ From Monitor] Respiratory 25 H 24 26 H Rate Blood Pressure 149/62 132/69 120/62 O2 Sat by Pulse 100 100 100 Oximetry 01/28/21 01/28/21 01/28/21 04:22 04:30 04:37 Temperature Pulse Rate 99 H 99 H 97 H Pulse Rate [ From Monitor] Respiratory 22 Rate Blood Pressure 154/70 154/70 O2 Sat by Pulse 100 100 Oximetry 01/28/21 01/28/21 01/28/21 05:00 05:30 06:00 Temperature Pulse Rate 96 H 97 H 97 H Pulse Rate [ From Monitor] Respiratory 14 19 16 Rate Blood Pressure 129/61 135/69 139/67 O2 Sat by Pulse 99 100 100 Oximetry 01/28/21 01/28/21 01/28/21 06:30 07:00 07:30 Temperature 98.0 F Pulse Rate 96 H 103 H 96 H Pulse Rate [ From Monitor] Respiratory 18 28 H 15 Rate Blood Pressure 150/69 127/62 151/70 O2 Sat by Pulse 100 86 100 Oximetry 01/28/21 01/28/21 01/28/21 07:39 08:00 08:30 Temperature Pulse Rate 99 H 96 H 98 H Pulse Rate [ 96 H From Monitor] Respiratory 14 18 Rate Blood Pressure 151/70 141/69 144/73 O2 Sat by Pulse 100 100 100 Oximetry 01/28/21 01/28/21 01/28/21 09:00 09:30 09:51 Temperature Pulse Rate 99 H 101 H Pulse Rate [ From Monitor] Respiratory 20 17 Rate Blood Pressure 147/82 151/71 153/76 O2 Sat by Pulse 100 Oximetry 01/28/21 01/28/21 10:00 10:30 Temperature Pulse Rate 101 H 101 H Pulse Rate [ From Monitor] Respiratory 22 19 Rate Blood Pressure 144/67 160/82 O2 Sat by Pulse 99 100 Oximetry Constitutional: no acute distress, comatose (secondary to meds for seizure) ENT: other (orally intubated and sedated) Neck: supple Effort: normal Ascultation: Bilateral: clear Cardiovascular: regular rate and rhythm Gastrointestinal: normoactive bowel sounds Integumentary: normal Extremities: no edema, pulses normal CBC and BMP: 01/26/21 06:47 01/28/21 05:18 ABG, PT/INR, D-dimer: ABG ABG pH 7.509 (7.320-7.450) H 01/26/21 05:00 POC ABG pCO2 35.8 mmHg (32.0-48.0) 01/26/21 05:00 ABG pCO2 39.5 mm Hg 01/22/21 04:00 POC ABG pO2 87.7 mmHg (83-108) 01/26/21 05:00 ABG pO2 118.8 mm Hg (80.0-90.0) H 01/22/21 04:00 POC ABG HCO3 27.9 01/26/21 05:00 ABG O2 Saturation 97.1 (0-100) 01/26/21 05:00 PT/INR, D-dimer PT 15.2 Sec. (12.2-14.9) H 01/22/21 04:20 INR 1.15 (0.87-1.13) H 01/22/21 04:20 Abnormal lab findings: Abnormal Labs 01/12/21 01/12/21 01/12/21 14:12 14:36 14:36 WBC 11.2 H RBC Hgb Hct MCV MCH 27 L RDW 21.0 H Plt Count Lymph % (Auto) Lymph # (Auto) Seg Neutrophils % 79.6 H Seg Neutrophils # 8.9 H PT INR ABG pH POC ABG pCO2 POC ABG pO2 ABG pO2 ABG Hemoglobin ABG Oxyhemoglobin ABG Sodium ABG Potassium ABG Glucose Carboxyhemoglobin Sodium 136 L Potassium Chloride 95.8 L Carbon Dioxide 19 L BUN Creatinine 2.0 H Glucose 163 H POC Glucose 166 H Calcium 8.2 L Phosphorus Ammonia Total Protein 5.4 L Albumin 3.4 L TSH Arterial Blood Glucose Arterial Blood Ionized Calcium Phenytoin Valproic Acid 01/13/21 01/13/21 01/13/21 05:19 12:14 16:16 WBC RBC Hgb Hct MCV MCH RDW Plt Count Lymph % (Auto) Lymph # (Auto) Seg Neutrophils % Seg Neutrophils # PT INR ABG pH POC ABG pCO2 POC ABG pO2 ABG pO2 ABG Hemoglobin ABG Oxyhemoglobin ABG Sodium ABG Potassium ABG Glucose Carboxyhemoglobin Sodium 134 L Potassium Chloride 95.5 L Carbon Dioxide BUN 23 H Creatinine 2.6 H Glucose 168 H POC Glucose 142 H 163 H Calcium Phosphorus Ammonia Total Protein 5.8 L Albumin 3.3 L TSH Arterial Blood Glucose Arterial Blood Ionized Calcium Phenytoin Valproic Acid 01/13/21 01/13/21 01/14/21 20:22 23:57 06:31 WBC RBC Hgb Hct MCV MCH RDW Plt Count Lymph % (Auto) Lymph # (Auto) Seg Neutrophils % Seg Neutrophils # PT INR ABG pH POC ABG pCO2 POC ABG pO2 ABG pO2 ABG Hemoglobin ABG Oxyhemoglobin ABG Sodium ABG Potassium ABG Glucose Carboxyhemoglobin Sodium Potassium Chloride Carbon Dioxide BUN Creatinine Glucose POC Glucose 209 H 189 H 236 H Calcium Phosphorus Ammonia Total Protein Albumin TSH Arterial Blood Glucose Arterial Blood Ionized Calcium Phenytoin Valproic Acid 01/14/21 01/14/21 01/14/21 08:57 08:57 12:22 WBC 12.0 H RBC Hgb 11.3 L Hct 34.5 L MCV MCH RDW 20.6 H Plt Count Lymph % (Auto) 6.4 L Lymph # (Auto) 0.8 L Seg Neutrophils % 87.4 H Seg Neutrophils # 10.5 H PT INR ABG pH POC ABG pCO2 POC ABG pO2 ABG pO2 ABG Hemoglobin ABG Oxyhemoglobin ABG Sodium ABG Potassium ABG Glucose Carboxyhemoglobin Sodium 131 L Potassium Chloride 93.7 L Carbon Dioxide BUN 37 H Creatinine 3.7 H Glucose 261 H POC Glucose 280 H Calcium Phosphorus Ammonia Total Protein Albumin TSH Arterial Blood Glucose Arterial Blood Ionized Calcium Phenytoin Valproic Acid 01/14/21 01/14/21 01/15/21 16:15 22:28 04:43 WBC RBC Hgb Hct MCV MCH RDW Plt Count Lymph % (Auto) Lymph # (Auto) Seg Neutrophils % Seg Neutrophils # PT INR ABG pH POC ABG pCO2 POC ABG pO2 ABG pO2 ABG Hemoglobin ABG Oxyhemoglobin ABG Sodium ABG Potassium ABG Glucose Carboxyhemoglobin Sodium Potassium Chloride Carbon Dioxide BUN Creatinine Glucose POC Glucose 289 H 252 H 243 H Calcium Phosphorus Ammonia Total Protein Albumin TSH Arterial Blood Glucose Arterial Blood Ionized Calcium Phenytoin Valproic Acid 01/15/21 01/15/21 01/15/21 05:22 05:22 08:56 WBC 11.1 H RBC Hgb 11.0 L Hct 33.3 L MCV 83 L MCH 27 L RDW 20.6 H Plt Count Lymph % (Auto) 6.3 L Lymph # (Auto) 0.7 L Seg Neutrophils % 88.2 H Seg Neutrophils # 9.8 H PT INR ABG pH POC ABG pCO2 POC ABG pO2 ABG pO2 ABG Hemoglobin ABG Oxyhemoglobin ABG Sodium ABG Potassium ABG Glucose Carboxyhemoglobin Sodium 130 L Potassium Chloride 92.0 L Carbon Dioxide BUN 49 H Creatinine 4.2 H Glucose 241 H POC Glucose Calcium Phosphorus Ammonia Total Protein Albumin TSH Arterial Blood Glucose Arterial Blood Ionized Calcium Phenytoin Valproic Acid 45.9 L 01/15/21 01/15/21 01/15/21 16:42 18:14 23:10 WBC RBC Hgb Hct MCV MCH RDW Plt Count Lymph % (Auto) Lymph # (Auto) Seg Neutrophils % Seg Neutrophils # PT INR ABG pH 7.463 H POC ABG pCO2 POC ABG pO2 377.4 H ABG pO2 ABG Hemoglobin 11.6 L ABG Oxyhemoglobin 98.6 H ABG Sodium 130.1 L ABG Potassium ABG Glucose 254 H Carboxyhemoglobin Sodium Potassium Chloride Carbon Dioxide BUN Creatinine Glucose POC Glucose 218 H 279 H Calcium Phosphorus Ammonia Total Protein Albumin TSH Arterial Blood Glucose 254 H Arterial Blood Ionized Calcium 4.5 L Phenytoin Valproic Acid 01/16/21 01/16/21 01/16/21 03:10 05:11 05:17 WBC RBC Hgb 10.4 L Hct 31.8 L MCV MCH 27 L RDW 20.3 H Plt Count 132 L Lymph % (Auto) Lymph # (Auto) Seg Neutrophils % Seg Neutrophils # PT INR ABG pH POC ABG pCO2 POC ABG pO2 174.4 H ABG pO2 ABG Hemoglobin 10.3 L ABG Oxyhemoglobin 98.6 H ABG Sodium 129.9 L ABG Potassium 3.2 L ABG Glucose 202 H Carboxyhemoglobin Sodium Potassium Chloride Carbon Dioxide BUN Creatinine Glucose POC Glucose 193 H Calcium Phosphorus Ammonia Total Protein Albumin TSH Arterial Blood Glucose 202 H Arterial Blood Ionized Calcium Phenytoin Valproic Acid 01/16/21 01/16/21 01/16/21 05:17 09:15 11:33 WBC RBC Hgb Hct MCV MCH RDW Plt Count Lymph % (Auto) Lymph # (Auto) Seg Neutrophils % Seg Neutrophils # PT INR ABG pH POC ABG pCO2 POC ABG pO2 ABG pO2 ABG Hemoglobin ABG Oxyhemoglobin ABG Sodium ABG Potassium ABG Glucose Carboxyhemoglobin Sodium Potassium 3.4 L Chloride Carbon Dioxide BUN 36 H Creatinine 3.2 H Glucose 216 H POC Glucose 174 H Calcium 8.3 L Phosphorus 1.10 L Ammonia Total Protein Albumin TSH Arterial Blood Glucose Arterial Blood Ionized Calcium Phenytoin 6.5 L Valproic Acid 01/16/21 01/17/21 01/17/21 18:13 00:10 04:00 WBC RBC Hgb Hct MCV MCH RDW Plt Count Lymph % (Auto) Lymph # (Auto) Seg Neutrophils % Seg Neutrophils # PT INR ABG pH POC ABG pCO2 POC ABG pO2 ABG pO2 ABG Hemoglobin 10.1 L ABG Oxyhemoglobin ABG Sodium 130.1 L ABG Potassium 3.3 L ABG Glucose 153 H Carboxyhemoglobin Sodium Potassium Chloride Carbon Dioxide BUN Creatinine Glucose POC Glucose 162 H 150 H Calcium Phosphorus Ammonia Total Protein Albumin TSH Arterial Blood Glucose 153 H Arterial Blood Ionized Calcium Phenytoin Valproic Acid 01/17/21 01/17/21 01/17/21 05:30 05:48 11:14 WBC RBC Hgb Hct MCV MCH RDW Plt Count Lymph % (Auto) Lymph # (Auto) Seg Neutrophils % Seg Neutrophils # PT INR ABG pH POC ABG pCO2 POC ABG pO2 ABG pO2 ABG Hemoglobin ABG Oxyhemoglobin ABG Sodium ABG Potassium ABG Glucose Carboxyhemoglobin Sodium 136 L Potassium 3.5 L Chloride Carbon Dioxide BUN 48 H Creatinine 3.5 H Glucose 165 H POC Glucose 149 H Calcium 8.0 L Phosphorus 0.80 L* D Ammonia 22.0 L Total Protein Albumin TSH Arterial Blood Glucose Arterial Blood Ionized Calcium Phenytoin Valproic Acid 01/17/21 01/17/21 01/17/21 11:43 17:34 18:46 WBC RBC Hgb Hct MCV MCH RDW Plt Count Lymph % (Auto) Lymph # (Auto) Seg Neutrophils % Seg Neutrophils # PT INR ABG pH POC ABG pCO2 POC ABG pO2 ABG pO2 ABG Hemoglobin ABG Oxyhemoglobin ABG Sodium ABG Potassium ABG Glucose Carboxyhemoglobin Sodium Potassium Chloride Carbon Dioxide BUN Creatinine Glucose POC Glucose 160 H 209 H Calcium Phosphorus 2.20 L D Ammonia Total Protein Albumin TSH Arterial Blood Glucose Arterial Blood Ionized Calcium Phenytoin Valproic Acid 01/17/21 01/17/21 01/18/21 19:00 23:19 03:28 WBC RBC Hgb Hct MCV MCH RDW Plt Count Lymph % (Auto) Lymph # (Auto) Seg Neutrophils % Seg Neutrophils # PT INR ABG pH POC ABG pCO2 POC ABG pO2 190.2 H ABG pO2 ABG Hemoglobin 11.9 L ABG Oxyhemoglobin 98.5 H ABG Sodium 130.9 L 131.0 L ABG Potassium 3.0 L 2.8 L ABG Glucose 241 H Carboxyhemoglobin Sodium Potassium Chloride Carbon Dioxide BUN Creatinine Glucose POC Glucose 222 H Calcium Phosphorus Ammonia Total Protein Albumin TSH Arterial Blood Glucose 241 H Arterial Blood Ionized Calcium 4.5 L Phenytoin Valproic Acid 01/18/21 01/18/21 01/18/21 04:16 06:20 10:20 WBC 14.1 H RBC Hgb 11.2 L Hct 34.5 L MCV 83 L MCH 27 L RDW 20.8 H Plt Count 116 L Lymph % (Auto) Lymph # (Auto) Seg Neutrophils % Seg Neutrophils # PT INR ABG pH POC ABG pCO2 POC ABG pO2 ABG pO2 ABG Hemoglobin ABG Oxyhemoglobin ABG Sodium ABG Potassium ABG Glucose Carboxyhemoglobin Sodium 134 L Potassium 2.9 L* Chloride Carbon Dioxide 21 L BUN 60 H Creatinine 3.9 H Glucose POC Glucose 69 L Calcium Phosphorus 1.60 L D Ammonia Total Protein Albumin TSH Arterial Blood Glucose Arterial Blood Ionized Calcium Phenytoin Valproic Acid 01/18/21 01/18/21 01/18/21 11:29 15:30 17:23 WBC RBC Hgb Hct MCV MCH RDW Plt Count Lymph % (Auto) Lymph # (Auto) Seg Neutrophils % Seg Neutrophils # PT INR ABG pH POC ABG pCO2 POC ABG pO2 ABG pO2 ABG Hemoglobin ABG Oxyhemoglobin ABG Sodium ABG Potassium ABG Glucose Carboxyhemoglobin Sodium Potassium 3.3 L Chloride Carbon Dioxide BUN 42 H Creatinine 3.1 H Glucose 190 H POC Glucose 128 H 167 H Calcium 8.2 L Phosphorus 1.10 L D Ammonia Total Protein Albumin TSH Arterial Blood Glucose Arterial Blood Ionized Calcium Phenytoin Valproic Acid 01/18/21 01/19/21 01/19/21 23:43 03:43 04:38 WBC RBC Hgb Hct MCV MCH RDW Plt Count Lymph % (Auto) Lymph # (Auto) Seg Neutrophils % Seg Neutrophils # PT INR ABG pH 7.536 H POC ABG pCO2 27.0 L POC ABG pO2 165.8 H ABG pO2 ABG Hemoglobin 10.7 L ABG Oxyhemoglobin 98.4 H ABG Sodium 131.3 L ABG Potassium ABG Glucose 152 H Carboxyhemoglobin Sodium Potassium Chloride Carbon Dioxide BUN 55 H Creatinine 3.8 H Glucose 143 H POC Glucose 232 H Calcium Phosphorus 1.10 L Ammonia Total Protein Albumin TSH Arterial Blood Glucose 152 H Arterial Blood Ionized Calcium Phenytoin Valproic Acid 01/19/21 01/19/21 01/19/21 05:12 11:36 15:16 WBC RBC Hgb Hct MCV MCH RDW Plt Count Lymph % (Auto) Lymph # (Auto) Seg Neutrophils % Seg Neutrophils # PT INR ABG pH POC ABG pCO2 POC ABG pO2 ABG pO2 ABG Hemoglobin ABG Oxyhemoglobin ABG Sodium ABG Potassium ABG Glucose Carboxyhemoglobin Sodium Potassium Chloride Carbon Dioxide BUN Creatinine Glucose POC Glucose 135 H 201 H Calcium Phosphorus 1.10 L Ammonia Total Protein Albumin TSH Arterial Blood Glucose Arterial Blood Ionized Calcium Phenytoin Valproic Acid 01/19/21 01/19/21 01/20/21 17:55 23:22 04:00 WBC RBC Hgb Hct MCV MCH RDW Plt Count Lymph % (Auto) Lymph # (Auto) Seg Neutrophils % Seg Neutrophils # PT INR ABG pH 7.513 H POC ABG pCO2 POC ABG pO2 ABG pO2 ABG Hemoglobin 9.9 L ABG Oxyhemoglobin ABG Sodium 129.4 L ABG Potassium ABG Glucose 196 H Carboxyhemoglobin Sodium Potassium Chloride Carbon Dioxide BUN Creatinine Glucose POC Glucose 222 H 252 H Calcium Phosphorus Ammonia Total Protein Albumin TSH Arterial Blood Glucose 196 H Arterial Blood Ionized Calcium Phenytoin Valproic Acid 01/20/21 01/20/21 01/20/21 05:15 11:15 14:49 WBC 16.1 H RBC Hgb 9.9 L Hct 30.3 L MCV 82 L MCH 27 L RDW 20.7 H Plt Count 114 L Lymph % (Auto) Lymph # (Auto) Seg Neutrophils % Seg Neutrophils # PT INR ABG pH POC ABG pCO2 POC ABG pO2 ABG pO2 ABG Hemoglobin ABG Oxyhemoglobin ABG Sodium ABG Potassium ABG Glucose Carboxyhemoglobin Sodium Potassium Chloride Carbon Dioxide BUN Creatinine Glucose POC Glucose 163 H 149 H Calcium Phosphorus Ammonia Total Protein Albumin TSH Arterial Blood Glucose Arterial Blood Ionized Calcium Phenytoin Valproic Acid 01/20/21 01/20/21 01/20/21 14:49 14:49 17:12 WBC RBC Hgb Hct MCV MCH RDW Plt Count Lymph % (Auto) Lymph # (Auto) Seg Neutrophils % Seg Neutrophils # PT INR ABG pH POC ABG pCO2 POC ABG pO2 ABG pO2 ABG Hemoglobin ABG Oxyhemoglobin ABG Sodium ABG Potassium ABG Glucose Carboxyhemoglobin Sodium 133 L Potassium Chloride 95.8 L Carbon Dioxide BUN 48 H Creatinine 3.1 H Glucose 167 H POC Glucose 155 H Calcium Phosphorus 0.80 L* D Ammonia Total Protein Albumin TSH Arterial Blood Glucose Arterial Blood Ionized Calcium Phenytoin Valproic Acid 48.4 L 01/21/21 01/21/21 01/21/21 00:55 05:20 06:39 WBC 17.5 H RBC 3.62 L Hgb 9.6 L Hct 29.7 L MCV 82 L MCH 26 L RDW 21.4 H Plt Count 126 L Lymph % (Auto) Lymph # (Auto) Seg Neutrophils % Seg Neutrophils # PT INR ABG pH POC ABG pCO2 POC ABG pO2 ABG pO2 ABG Hemoglobin ABG Oxyhemoglobin ABG Sodium ABG Potassium ABG Glucose Carboxyhemoglobin Sodium Potassium Chloride Carbon Dioxide BUN Creatinine Glucose POC Glucose 134 H 170 H Calcium Phosphorus Ammonia Total Protein Albumin TSH Arterial Blood Glucose Arterial Blood Ionized Calcium Phenytoin Valproic Acid 01/21/21 01/21/21 01/21/21 06:39 11:32 17:41 WBC RBC Hgb Hct MCV MCH RDW Plt Count Lymph % (Auto) Lymph # (Auto) Seg Neutrophils % Seg Neutrophils # PT INR ABG pH POC ABG pCO2 POC ABG pO2 ABG pO2 ABG Hemoglobin ABG Oxyhemoglobin ABG Sodium ABG Potassium ABG Glucose Carboxyhemoglobin Sodium 133 L Potassium Chloride 95.9 L Carbon Dioxide BUN 56 H Creatinine 3.2 H Glucose 159 H POC Glucose 159 H 137 H Calcium Phosphorus 2.30 L D Ammonia Total Protein Albumin TSH Arterial Blood Glucose Arterial Blood Ionized Calcium Phenytoin Valproic Acid 01/21/21 01/22/21 01/22/21 23:48 04:00 04:20 WBC 14.0 H RBC 3.47 L Hgb 9.3 L Hct 28.6 L MCV 83 L MCH 27 L RDW 21.4 H Plt Count 129 L Lymph % (Auto) Lymph # (Auto) Seg Neutrophils % Seg Neutrophils # PT INR ABG pH POC ABG pCO2 POC ABG pO2 ABG pO2 118.8 H ABG Hemoglobin 9.6 L ABG Oxyhemoglobin ABG Sodium ABG Potassium ABG Glucose Carboxyhemoglobin Sodium Potassium Chloride Carbon Dioxide BUN Creatinine Glucose POC Glucose 203 H Calcium Phosphorus Ammonia Total Protein Albumin TSH Arterial Blood Glucose Arterial Blood Ionized Calcium Phenytoin Valproic Acid 01/22/21 01/22/21 01/22/21 04:20 04:20 04:20 WBC RBC Hgb Hct MCV MCH RDW Plt Count Lymph % (Auto) Lymph # (Auto) Seg Neutrophils % Seg Neutrophils # PT INR ABG pH POC ABG pCO2 POC ABG pO2 ABG pO2 ABG Hemoglobin ABG Oxyhemoglobin ABG Sodium ABG Potassium ABG Glucose Carboxyhemoglobin Sodium 131 L Potassium Chloride 92.9 L Carbon Dioxide 21 L BUN 69 H Creatinine 3.9 H Glucose 230 H POC Glucose Calcium 8.1 L Phosphorus Ammonia 19.0 L Total Protein 5.2 L Albumin 1.9 L TSH 4.730 H Arterial Blood Glucose Arterial Blood Ionized Calcium Phenytoin Valproic Acid 01/22/21 01/22/21 01/22/21 04:20 05:14 11:36 WBC RBC Hgb Hct MCV MCH RDW Plt Count Lymph % (Auto) Lymph # (Auto) Seg Neutrophils % Seg Neutrophils # PT 15.2 H INR 1.15 H ABG pH POC ABG pCO2 POC ABG pO2 ABG pO2 ABG Hemoglobin ABG Oxyhemoglobin ABG Sodium ABG Potassium ABG Glucose Carboxyhemoglobin Sodium Potassium Chloride Carbon Dioxide BUN Creatinine Glucose POC Glucose 213 H 151 H Calcium Phosphorus Ammonia Total Protein Albumin TSH Arterial Blood Glucose Arterial Blood Ionized Calcium Phenytoin Valproic Acid 01/22/21 01/23/21 01/23/21 17:47 00:06 04:41 WBC 18.5 H RBC 3.43 L Hgb 9.0 L Hct 28.1 L MCV 82 L MCH 26 L RDW 21.6 H Plt Count Lymph % (Auto) Lymph # (Auto) Seg Neutrophils % Seg Neutrophils # PT INR ABG pH POC ABG pCO2 POC ABG pO2 ABG pO2 ABG Hemoglobin ABG Oxyhemoglobin ABG Sodium ABG Potassium ABG Glucose Carboxyhemoglobin Sodium Potassium Chloride Carbon Dioxide BUN Creatinine Glucose POC Glucose 271 H 295 H Calcium Phosphorus Ammonia Total Protein Albumin TSH Arterial Blood Glucose Arterial Blood Ionized Calcium Phenytoin Valproic Acid 01/23/21 01/23/21 01/23/21 04:41 05:31 11:54 WBC RBC Hgb Hct MCV MCH RDW Plt Count Lymph % (Auto) Lymph # (Auto) Seg Neutrophils % Seg Neutrophils # PT INR ABG pH POC ABG pCO2 POC ABG pO2 ABG pO2 ABG Hemoglobin ABG Oxyhemoglobin ABG Sodium ABG Potassium ABG Glucose Carboxyhemoglobin Sodium 135 L Potassium Chloride Carbon Dioxide BUN 53 H Creatinine 3.1 H Glucose 187 H POC Glucose 183 H 178 H Calcium Phosphorus Ammonia Total Protein Albumin TSH Arterial Blood Glucose Arterial Blood Ionized Calcium Phenytoin Valproic Acid 01/23/21 01/23/21 01/24/21 17:54 23:15 05:27 WBC RBC Hgb Hct MCV MCH RDW Plt Count Lymph % (Auto) Lymph # (Auto) Seg Neutrophils % Seg Neutrophils # PT INR ABG pH POC ABG pCO2 POC ABG pO2 ABG pO2 ABG Hemoglobin ABG Oxyhemoglobin ABG Sodium ABG Potassium ABG Glucose Carboxyhemoglobin Sodium Potassium Chloride Carbon Dioxide BUN Creatinine Glucose POC Glucose 243 H 241 H 298 H Calcium Phosphorus Ammonia Total Protein Albumin TSH Arterial Blood Glucose Arterial Blood Ionized Calcium Phenytoin Valproic Acid 01/24/21 01/24/21 01/24/21 12:00 17:26 23:53 WBC RBC Hgb Hct MCV MCH RDW Plt Count Lymph % (Auto) Lymph # (Auto) Seg Neutrophils % Seg Neutrophils # PT INR ABG pH POC ABG pCO2 POC ABG pO2 ABG pO2 ABG Hemoglobin ABG Oxyhemoglobin ABG Sodium ABG Potassium ABG Glucose Carboxyhemoglobin Sodium Potassium Chloride Carbon Dioxide BUN Creatinine Glucose POC Glucose 259 H 178 H 251 H Calcium Phosphorus Ammonia Total Protein Albumin TSH Arterial Blood Glucose Arterial Blood Ionized Calcium Phenytoin Valproic Acid 01/25/21 01/25/21 01/25/21 04:54 06:02 11:27 WBC RBC Hgb Hct MCV MCH RDW Plt Count Lymph % (Auto) Lymph # (Auto) Seg Neutrophils % Seg Neutrophils # PT INR ABG pH POC ABG pCO2 POC ABG pO2 ABG pO2 ABG Hemoglobin ABG Oxyhemoglobin ABG Sodium ABG Potassium ABG Glucose Carboxyhemoglobin Sodium Potassium Chloride Carbon Dioxide BUN Creatinine Glucose POC Glucose 235 H 209 H Calcium Phosphorus 2.20 L Ammonia Total Protein Albumin TSH Arterial Blood Glucose Arterial Blood Ionized Calcium Phenytoin Valproic Acid 01/25/21 01/25/21 01/26/21 17:32 23:36 05:00 WBC RBC Hgb Hct MCV MCH RDW Plt Count Lymph % (Auto) Lymph # (Auto) Seg Neutrophils % Seg Neutrophils # PT INR ABG pH 7.509 H POC ABG pCO2 POC ABG pO2 ABG pO2 ABG Hemoglobin 8.7 L ABG Oxyhemoglobin ABG Sodium 130.9 L ABG Potassium 5.5 H ABG Glucose 219 H Carboxyhemoglobin 1.7 H Sodium Potassium Chloride Carbon Dioxide BUN Creatinine Glucose POC Glucose 249 H 183 H Calcium Phosphorus Ammonia Total Protein Albumin TSH Arterial Blood Glucose 219 H Arterial Blood Ionized Calcium 4.3 L Phenytoin Valproic Acid 01/26/21 01/26/21 01/26/21 05:21 06:47 06:47 WBC 21.6 H RBC 3.18 L Hgb 8.4 L Hct 26.6 L MCV MCH 27 L RDW 21.8 H Plt Count Lymph % (Auto) Lymph # (Auto) Seg Neutrophils % Seg Neutrophils # PT INR ABG pH POC ABG pCO2 POC ABG pO2 ABG pO2 ABG Hemoglobin ABG Oxyhemoglobin ABG Sodium ABG Potassium ABG Glucose Carboxyhemoglobin Sodium 133 L Potassium 5.6 H D Chloride 94.5 L Carbon Dioxide BUN 73 H Creatinine 3.6 H Glucose 245 H POC Glucose 179 H Calcium Phosphorus Ammonia Total Protein Albumin TSH Arterial Blood Glucose Arterial Blood Ionized Calcium Phenytoin Valproic Acid 01/26/21 01/26/21 01/26/21 11:36 17:41 23:12 WBC RBC Hgb Hct MCV MCH RDW Plt Count Lymph % (Auto) Lymph # (Auto) Seg Neutrophils % Seg Neutrophils # PT INR ABG pH POC ABG pCO2 POC ABG pO2 ABG pO2 ABG Hemoglobin ABG Oxyhemoglobin ABG Sodium ABG Potassium ABG Glucose Carboxyhemoglobin Sodium Potassium Chloride Carbon Dioxide BUN Creatinine Glucose POC Glucose 235 H 174 H 178 H Calcium Phosphorus Ammonia Total Protein Albumin TSH Arterial Blood Glucose Arterial Blood Ionized Calcium Phenytoin Valproic Acid 01/27/21 01/27/21 01/27/21 05:26 11:43 17:31 WBC RBC Hgb Hct MCV MCH RDW Plt Count Lymph % (Auto) Lymph # (Auto) Seg Neutrophils % Seg Neutrophils # PT INR ABG pH POC ABG pCO2 POC ABG pO2 ABG pO2 ABG Hemoglobin ABG Oxyhemoglobin ABG Sodium ABG Potassium ABG Glucose Carboxyhemoglobin Sodium Potassium Chloride Carbon Dioxide BUN Creatinine Glucose POC Glucose 179 H 207 H 157 H Calcium Phosphorus Ammonia Total Protein Albumin TSH Arterial Blood Glucose Arterial Blood Ionized Calcium Phenytoin Valproic Acid 01/27/21 01/27/21 01/28/21 17:45 23:28 05:17 WBC RBC Hgb Hct MCV MCH RDW Plt Count Lymph % (Auto) Lymph # (Auto) Seg Neutrophils % Seg Neutrophils # PT INR ABG pH POC ABG pCO2 POC ABG pO2 ABG pO2 ABG Hemoglobin ABG Oxyhemoglobin ABG Sodium ABG Potassium ABG Glucose Carboxyhemoglobin Sodium Potassium Chloride Carbon Dioxide BUN Creatinine Glucose POC Glucose 149 H 209 H 129 H Calcium Phosphorus Ammonia Total Protein Albumin TSH Arterial Blood Glucose Arterial Blood Ionized Calcium Phenytoin Valproic Acid 01/28/21 05:18 WBC RBC Hgb Hct MCV MCH RDW Plt Count Lymph % (Auto) Lymph # (Auto) Seg Neutrophils % Seg Neutrophils # PT INR ABG pH POC ABG pCO2 POC ABG pO2 ABG pO2 ABG Hemoglobin ABG Oxyhemoglobin ABG Sodium ABG Potassium ABG Glucose Carboxyhemoglobin Sodium 131 L Potassium 5.6 H Chloride 92.0 L Carbon Dioxide BUN 58 H Creatinine 2.8 H Glucose 127 H POC Glucose Calcium 7.8 L Phosphorus Ammonia Total Protein Albumin TSH Arterial Blood Glucose Arterial Blood Ionized Calcium Phenytoin Valproic Acid
[2021-01-28] MEDS ORDERED: SCOPOLAMINE TRANSDERMAL PATCH 72 HR TD SCH (11:00)
--- NOTE | 2021-01-28 11:25 | Progress Note ---
Assessment and Plan Assessment and plan: 80-year-old male with ESRD on HD, HTN, CAD, cerebral arthrosclerosis, vascular dementia who is admitted for new onset seizures. On 01/15 patient was transferred to ICU and intubated for possible status epilepticus. Neuro: New onset seizure disorder; possibly be in status epilepticus vascular dementia chronic SDH cerebral atherosclerosis Neurology consulted, appreciate recommendations CT of the brain noted, no signs of acute infarct MRI showing subacute to chronic subdural hematoma. 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 -Celebrex, Keppra, Depacon -01/14 EEG is significantly abnormal, diffuse background slowing in 3-4 Hz, patient had a vertex waves and sleep spindles noted bilaterally and centrally, 2 events of facial twitching with associated generalized tonic/clonic activities, lasting for at least 15 seconds each followed by suppressions, findings suggestive of encephalopathic process and/or higher tendency of possible focal seizures with generalization, possibility of source of blood loss cannot be totally excluded -01/15 EEG shows burst suppression pattern, intermittent sharp electric activity is noted throughout the recording, pronounced in the right frontal region, findings consistent with generalized seizure activity -01/16 EEG shows findings of generalized burst suppression as well as recurrent triphasic waves sinuses Rocephin for the process, and her drug effect, reports after stage cannot be excluded, possibility of toxic metabolic and/or hepatic and/or renal insufficiency cannot be excluded -01/17 EEG shows significant improvement previous recording, no epileptiform discharges noted, no runs of sharp looking activity is appreciated, intermittent triphasic waves noted mostly bifrontally and improvement in the background activity to 4-6 Hz noted throughout the recording, concerning suggestive of mild encephalopathic process and/or postictal state of possibility of flexor metabolic etiology cannot be totally excluded -01/18 EEG interpreted as mildly encephalopathic process with background 4-5 Hz noted throughout the recording with triphasic waves noted occasionally and vertex waves centrally more pronounced on the left side, no epileptiform discharge appreciated, suggestive of possible toxic metabolic and/or drug effect, possibility of postictal state cannot be totally excluded -Aspiration and seizures precautions -PERRL; no commands; no movement; cough; gag; opens eyes worsening neuro status today v yesterday repeat head CT nothing acute noted UDS has been reordered- no urine on straight cath today - send if able to get urine on keppra 250 mg daily - discussed with pharm; will change to p HD for it is dialyzed out no further sz in the last 24 hours continue to monitor PRN pain meds home timolol no mind altering meds such as narcotics that would complicate neuro exam family updated on plan of care and they are discussing goals of care case management following GOAL: CONTINUE TO MONITOR MENTAL STATUS AND FOR SZ CONTINUE TO SUPPORT FAMILY THEY MAKE GOALS OF CARE DECISIONS Cardio: History of hypertension afib CVR in afib overnight rate 100-110 MAP is less than in SR but still 65-70 EKG this AM on home cardura no pressors statin holding asa due to SDH GOAL MONITOR AFIB AND BP; IF MAP FALLS < 65 NOTIFY TEAM FOR MANAGEMENT Resp: Acute hypoxic respiratory failure -Intubated 01/15 for possible status epilepticus however patient was extubated on 01/17 and had to be reintubated on 01/17 for hypoxia -Wean mechanical ventilation as tolerated see EMR for vent titration -VAP bundle -SPO2 monitoring per protocol -Serial ABGs and CXR -likely will need trach - family has been updated by Dr Gatica and they are discussing goals of care -nebs prn -chest xray noted this AM- no consolidation or infiltrate GOAL: PS/wean as tolerated GI Severe dysphagia; Failure to thrive Chronic PEG tube -On tube feedings changed 01-21 from nephro due to lowphos k phos supplements added -nutrition following bowel reg PPI GOAL: maximize nutritional state End-stage renal disease on HD Nephrology following Dialysis per renal team tolerating HD this AM -Avoid nephrotoxic medications Hypophosphatemia- improving -KPhos scheduled -resume home renal meds when appropriate HypoNa Uremia- trend oliguria no trinidad; requiring bladder scan and PRN straight caths pt net pos 1.8L over the last 24 hours GOAL: follow electrolytes; defer to nephrology for HD/fluid management Heme: a/c anemia Anemia of chronic disease -Admit H/H 12.339 -Transfuse for hemoglobin less than 7 epo for chronic anemia Thrombocytopenia improving -Hold anticouagualtion in setting of chronic SDH trend CBC- ordered for AM VTE- no AC given SDH GOAL: CONTINUE TO MONITOR ID: leukocytosis -01/13 nares: MRSA positive -01/15 tracheal aspirate with gram-negative rods, mod growth-- pseudomonas dc levaquin due to lowering of sz threshold -if pt spikes fever- reculture and consider antibiotics -PRN tylenol for fever -skin care per RN GOAL: CONTINUE TO MONITOR; PREVENT NOSOCOMIAL INFECTIONS Endo- DM monitor blood glucose avoid hypoglycemia if TF are interrupted hold rapid acting agents home linagliptin, lispro, tradjenta GOAL: MAINTAIN NORMAL BLOOD GLUCOSE History Interval history: This 80-year-old male who is a resident of a nursing home facility with ESRD on HD Thursday, , Thursday), hyperlipidemia, hypertension, vascular dementia, cerebral sclerosis presents to the emergency department after suspected cardiac arrest and initiation of ACLS at the dialysis center 01/12/2021 however upon EMS arrival patient was noted to be actively seizing and chest compressions were discontinued. Upon arrival to the emergency department patient was found to have new onset seizure disorder, acidosis. Nephrology was consulted for ESRD. Patient was initially admitted to the telemetry floor under observation. 01/13/2021. Seizure precautions. Continue IV Keppra and await neurology evaluation. Check EEG and MRI. CT scan negative. Continue hemodialysis per nephrology recommendations. 01/14/2021. Patient is somnolent and lethargic. However, no new seizure activity noted. CT brain is remarkable for white matter changes. Continue seizure precautions. Follow-up EEG and MRI brain. Neurology decrease Keppra to 250 mg twice daily. Ativan as needed for seizure. Continue hemodialysis per nephrology recommendations. 01/15/2021: There is no overt seizure activity, however patient continues to be nonverbal. Patient seen after dialysis. Patient is not responsive to any verbal cues. Patient is moaning. 01/16: Patient had EEG today and was noted to be having seizure activity on 2 mg of Versed and this was uptitrated to 3 mg Versed. Neurology has been informed. Hypokalemia and hypophosphatemia addressed. Likely HD tomorrow. 01/17: Repeat EEG completed today. Severe hypophosphatemia noted today, repleted with IV phos. HD scheduled today. 01/18: Repeat EEG today per neuro, HD per nephro. Hypokalemia today to 2.9 and hypophosphatemia to 1.6, patient received 40 M EQ of KCl, PhosNak for 1 day. Will obtain pm labs. Pateint is less responsive today but Neuro does not think he had another seizure. Thrombocytopenia, will trend CBC. Patient became hypoxic towards the end of dialysis and failed BiPAP therapy and had to be intubated for hypoxia. 01/19: UDS shows presumptive benzo, HD today per nephro, Phos remains low but still has not completed supplementation. Nephro suggests flumazenil. 01/20: On CMV tidal volume 550, rate of 18, PEEP of 6 on 45% FiO2, patient has a better physical exam with neurology this morning. AM labs pending. 01/20 no acute events overnight 01/21 noted to be in afib this AM 01/22. Pulmonary considering extubation. However patient failed PSV trials. 01/23/2021. Pulmonary had a long discussion with family regarding tracheostomy and vent weaning. Patient continued on mechanical ventilation. Continue Keppra/AEDs. No new seizure activity 01/24/2021. Patient remains on mechanical ventilation with PSV/CPAP mode, FiO2 35%, CPAP 6, pressure support 15. Pulmonary consult surgery for tracheostomy. Continue Keppra and seizure precautions. Patient currently with A. fib but rate controlled. Consult cardiology for further evaluation. Neuro: New onset seizure disorder; possibly be in status epilepticus vascular dementia chronic SDH cerebral atherosclerosis Neurology consulted, appreciate recommendations CT of the brain noted, no signs of acute infarct MRI showing subacute to chronic subdural hematoma. 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 =on keppra with no further seizures -01/14 EEG is significantly abnormal, diffuse background slowing in 3-4 Hz, patient had a vertex waves and sleep spindles noted bilaterally and centrally, 2 events of facial twitching with associated generalized tonic/clonic activities, lasting for at least 15 seconds each followed by suppressions, findings suggestive of encephalopathic process and/or higher tendency of possible focal seizures with generalization, possibility of source of blood loss cannot be totally excluded -01/15 EEG shows burst suppression pattern, intermittent sharp electric activity is noted throughout the recording, pronounced in the right frontal region, findings consistent with generalized seizure activity -01/16 EEG shows findings of generalized burst suppression as well as recurrent triphasic waves sinuses Rocephin for the process, and her drug effect, reports after stage cannot be excluded, possibility of toxic metabolic and/or hepatic and/or renal insufficiency cannot be excluded -01/17 EEG shows significant improvement previous recording, no epileptiform discharges noted, no runs of sharp looking activity is appreciated, intermittent triphasic waves noted mostly bifrontally and improvement in the background activity to 4-6 Hz noted throughout the recording, concerning suggestive of mild encephalopathic process and/or postictal state of possibility of flexor metabolic etiology cannot be totally excluded -01/18 EEG interpreted as mildly encephalopathic process with background 4-5 Hz noted throughout the recording with triphasic waves noted occasionally and vertex waves centrally more pronounced on the left side, no epileptiform discharge appreciated, suggestive of possible toxic metabolic and/or drug effect, possibility of postictal state cannot be totally excluded -Aspiration and seizures precautions -PERRL; no commands; no movement; cough; gag; opens eyes PRN pain meds home timolol no mind altering meds such as narcotics that would complicate neuro exam family updated on plan of care and they are discussing goals of care case management following Cardio: History of hypertension afib CVR SR with WAP on home cardura cards has seen patient no pressors statin holding asa due to SDH Resp: Acute hypoxic respiratory failure -Intubated 01/15 for possible status epilepticus however patient was extubated on 01/17 and had to be reintubated on 01/17 for hypoxia -Wean mechanical ventilation as tolerated see EMR for vent titration not tolerating PS for he goes apnic -VAP bundle -SPO2 monitoring per protocol -Serial ABGs and CXR -nebs prn -chest xray noted this AM- no consolidation or infiltrate -trach pending -planned for AM anesthesia and surgery have cnsented family -scopolamine for secretions GI Severe dysphagia; Failure to thrive Chronic PEG tube -TF- ok to feed -tolerating TF -nutrition following bowel reg BM last night PPI End-stage renal disease on HD Nephrology following Dialysis per renal team will have HD today in prep for surgery -Avoid nephrotoxic medications Hypophosphatemia- improving -KPhos held given high K -phos replaced this AM -resume home renal meds when appropriate HypoNa Uremia- trend oliguria no trinidad; requiring bladder scan and PRN straight caths Heme: a/c anemia Anemia of chronic disease -Admit H/H . -Transfuse for hemoglobin less than 7 epo for chronic anemia Thrombocytopenia improving -Hold anticouagualtion in setting of chronic SDH trend CBC- ordered for AM VTE- no AC given SDH ID: leukocytosis -01/13 nares: MRSA positive -7/13 tracheal aspirate with gram-negative rods, mod growth-- pseudomonas dc levaquin due to lowering of sz threshold -if pt spikes fever- reculture and consider antibiotics -PRN tylenol for fever -skin care per RN Endo- DM with hyperglycemia monitor blood glucose avoid hypoglycemia if TF are interrupted hold rapid acting agents home linagliptin, lispro, tradjenta PLAN NPO P MN FOR TRACH IN AM COAGS/LABS ORDERED FOR AM The high probability of a clinically significant, sudden or life threatening deterioration of the [respiratory, neurological] system(s) required my full and direct attention, intervention and personal management. The aggregate critical care time was [60] minutes. This time is in addition to time spent performing reported procedures but includes the following: [x] Data Review and interpretation [x] Patient assessment and monitoring of vital signs [x] Documentation [x] Medication orders and management Disposition Plan: tbd Total Time Spent with Patient (Minutes): 60 History Interval history: no acute events overnight Hospitalist Physical - Constitutional Vitals: Temp Pulse Resp BP Pulse Ox 98.0 F 101 H 19 160/82 100 01/28/21 07:00 01/28/21 10:30 01/28/21 10:30 01/28/21 10:30 01/28/21 10:30 General appearance: Present: no acute distress - EENT Eyes: Present: PERRL ENT: clear oral mucosa - Neck Neck: Present: supple - Respiratory Respiratory effort: normal - Cardiovascular Rhythm: regular - Extremities Extremities: no ischemia Peripheral Pulses: within normal limits - Integumentary Integumentary: Present: clear, warm - Psychiatric Psychiatric: other - Neurologic Neurologic: other - Allied Health Allied health notes reviewed: nursing, RT, social work, case management Results - Labs CBC & Chem 7: 01/26/21 06:47 01/28/21 05:18 Labs: Laboratory Last Values WBC 21.6 K/mm3 (4.5-11.0) H 01/26/21 06:47 RBC 3.18 M/mm3 (3.65-5.03) L 01/26/21 06:47 Hgb 8.4 gm/dl (11.8-15.2) L 01/26/21 06:47 Hct 26.6 % (35.5-45.6) L 01/26/21 06:47 MCV 84 fl (84-94) 01/26/21 06:47 MCH 27 pg (28-32) L 01/26/21 06:47 MCHC 32 % (32-34) 01/26/21 06:47 RDW 21.8 % (13.2-15.2) H 01/26/21 06:47 Plt Count 182 K/mm3 (140-440) 01/26/21 06:47 Lymph % (Auto) 6.3 % (13.4-35.0) L 01/15/21 05:22 [place] % (Auto) 5.4 % (0.0-7.3) 01/15/21 05:22 Eos % (Auto) 0.0 % (0.0-4.3) 01/15/21 05:22 Baso % (Auto) 0.1 % (0.0-1.8) 01/15/21 05:22 Lymph # (Auto) 0.7 K/mm3 (1.2-5.4) L 01/15/21 05:22 [place] # (Auto) 0.6 K/mm3 (0.0-0.8) 01/15/21 05:22 Eos # (Auto) 0.0 K/mm3 (0.0-0.4) 01/15/21 05:22 Baso # (Auto) 0.0 K/mm3 (0.0-0.1) 01/15/21 05:22 Seg Neutrophils % 88.2 % (40.0-70.0) H 01/15/21 05:22 Seg Neutrophils # 9.8 K/mm3 (1.8-7.7) H 01/15/21 05:22 PT 15.2 Sec. (12.2-14.9) H 01/22/21 04:20 INR 1.15 (0.87-1.13) H 01/22/21 04:20 ABG pH 7.509 (7.320-7.450) H 01/26/21 05:00 POC ABG pCO2 35.8 mmHg (32.0-48.0) 01/26/21 05:00 ABG pCO2 39.5 mm Hg 01/22/21 04:00 POC ABG pO2 87.7 mmHg (83-108) 01/26/21 05:00 ABG pO2 118.8 mm Hg (80.0-90.0) H 01/22/21 04:00 POC ABG HCO3 27.9 01/26/21 05:00 ABG HCO3 24.5 mmol/L (20.0-26.0) 01/22/21 04:00 ABG O2 Saturation 97.1 (0-100) 01/26/21 05:00 ABG O2 Content 13.2 (0.0-44) 01/22/21 04:00 POC ABG Base Excess 4.6 01/26/21 05:00 ABG Base Excess -0.1 mmol/L (-2.0-3.0) 01/22/21 04:00 ABG Hemoglobin 8.7 (12.0-17.5) L 01/26/21 05:00 ABG Oxyhemoglobin 95.2 (94-98) 01/26/21 05:00 ABG Carboxyhemoglobin 1.5 % (0.0-5.0) 01/22/21 04:00 ABG Methemoglobin 0.3 (0.0-1.5) 01/26/21 05:00 ABG Sodium 130.9 mmol/L (136.0-145.0) L 01/26/21 05:00 ABG Potassium 5.5 mmol/L (3.40-4.50) H 01/26/21 05:00 ABG Chloride 98.0 mmol/L (98-107) 01/26/21 05:00 ABG Glucose 219 mg/dL (65-95) H 01/26/21 05:00 Oxyhemoglobin 96.5 % (95.0-99.0) 01/22/21 04:00 Carboxyhemoglobin 1.7 (0.5-1.5) H 01/26/21 05:00 FiO2 35 % 01/22/21 04:00 FiO2 % 25.0 01/26/21 05:00 Sodium 131 mmol/L (137-145) L 01/28/21 05:18 Potassium 5.6 mmol/L (3.6-5.0) H 01/28/21 05:18 Chloride 92.0 mmol/L (98-107) L 01/28/21 05:18 Carbon Dioxide 28 mmol/L (22-30) 01/28/21 05:18 Anion Gap 17 mmol/L 01/28/21 05:18 BUN 58 mg/dL (9-20) H 01/28/21 05:18 Creatinine 2.8 mg/dL (0.8-1.3) H 01/28/21 05:18 Estimated GFR 26 ml/min 01/28/21 05:18 BUN/Creatinine Ratio 21 % 01/28/21 05:18 Glucose 127 mg/dL (75-100) H 01/28/21 05:18 POC Glucose 129 mg/dL (70-105) H 01/28/21 05:17 Calcium 7.8 mg/dL (8.4-10.2) L 01/28/21 05:18 Phosphorus 2.20 mg/dL (2.5-4.5) L 01/25/21 06:02 Magnesium 2.00 mg/dL (1.7-2.3) 01/22/21 04:20 Total Bilirubin 0.20 mg/dL (0.1-1.2) 01/22/21 04:20 Direct Bilirubin < 0.2 mg/dL (0-0.2) 01/12/21 14:36 Indirect Bilirubin 0.1 mg/dL 01/12/21 14:36 AST 37 units/L (5-40) 01/22/21 04:20 ALT 23 units/L (7-56) 01/22/21 04:20 Alkaline Phosphatase 108 units/L (35-129) 01/22/21 04:20 Ammonia 19.0 umol/L (25-60) L 01/22/21 04:20 Total Protein 5.2 g/dL (6.3-8.2) L 01/22/21 04:20 Albumin 1.9 g/dL (3.9-5) L 01/22/21 04:20 Albumin/Globulin Ratio 0.6 % 01/22/21 04:20 TSH 4.730 mlU/mL (0.270-4.200) H 01/22/21 04:20 Arterial Blood Glucose 219 mg/dL (65-95) H 01/26/21 05:00 Arterial Blood Ionized Calcium 4.3 mg/dL (4.6-5.3) L 01/26/21 05:00 Nasal Screen MRSA (PCR) Positive (Negative) 01/13/21 Unknown Urine Opiates Screen Negative 01/18/21 14:25 Urine Methadone Screen Negative 01/18/21 14:25 Ur Barbiturates Screen Negative 01/18/21 14:25 Phenytoin 6.5 ug/mL (10.0-20.0) L 01/16/21 09:15 Valproic Acid 48.4 ug/mL (50-100) L 01/20/21 14:49 Ur Phencyclidine Scrn Negative 01/18/21 14:25 Ur Amphetamines Screen Negative 01/18/21 14:25 U Benzodiazepines Scrn Presumptive positive 01/18/21 14:25 Urine Cocaine Screen Negative 01/18/21 14:25 U Marijuana (THC) Screen Negative 01/18/21 14:25 Drugs of Abuse Note Disclamer 01/18/21 14:25 Coronavirus (PCR) Negative (Negative) 01/15/21 08:00 Hepatitis A IgM Ab Non-reactive (NonReactive) 01/15/21 09:15 Hep Bs Antigen Non-reactive (Negative) 01/15/21 09:15 Hep B Core IgM Ab Non-reactive (NonReactive) 01/15/21 09:15 Hepatitis C Antibody Non-reactive (NonReactive) 01/15/21 09:15 [place]/IV: Voiding Method Incontinent Active Medications - Current Medications Current Medications: Generic Name Dose Route Start Last Admin Trade Name Freq PRN Reason Stop Dose Admin Acetaminophen 650 mg 01/12/21 19:30 Acetaminophen 325 Mg Tab PO Q4H PRN Pain MILD(1-3)/Fever >100.5/ABEL Albuterol 2.5 mg 01/12/21 19:30 Albuterol 2.5 Mg/3 Ml Nebu IH Q4HRT PRN Shortness Of Breath Lipase/Protease/Amylase 1 each 01/13/21 10:11 01/27/21 09:43 Lipase 10,500/Protease 25,000/Amylase 43,750 (Units) Dr Silveira FEEDTUBE 1 each PRN PRN Administration For Clogged Feeding Tube Atorvastatin Calcium 40 mg 01/12/21 22:00 01/27/21 21:37 Atorvastatin 40 Mg Tab PO 40 mg QHS NOLAN Administration Calcitriol 1 mcg 01/13/21 10:00 01/28/21 09:51 Calcitriol 0.5 Mcg Cap PO 1 mcg QDAY NOLAN Administration Docusate Sodium 100 mg 01/17/21 09:00 Docusate Sodium 100 Mg/10 Ml Oral Liqd PO BID PRN Constipation Doxazosin Mesylate 2 mg 01/18/21 10:00 01/28/21 09:51 Doxazosin 1 Mg Tab PO 2 mg QDAY NOLAN Administration Heparin Sodium (Porcine) 2,000 unit 01/28/21 10:39 Heparin 10,000 Units/10 Ml Vial IV DIONNA PRN hemodialysis Hydrophilic Ointment 1 applic 01/15/21 17:14 Lip Therapy Vaseline TP Q2HR PRN Dry Lips Sodium Chloride 100 mls @ 999 mls/hr 01/26/21 12:29 Nacl 0.9% IV DIONNA PRN Hypotension Dextrose/Sodium Chloride 1,000 mls @ 42 mls/hr 01/28/21 08:00 D5/0.45ns IV DIRECT NOLAN Insulin Glargine 5 units 01/25/21 22:00 01/27/21 21:36 Insulin Glargine 100 Units/Ml SUB-Q 5 units QHS NOLAN Administration Insulin Human Lispro 0 unit 01/16/21 00:00 01/28/21 05:54 Insulin Lispro 100 Unit/Ml SUB-Q Not Given Q6HR [facility] Protocol Lansoprazole 30 mg 01/12/21 22:00 01/28/21 09:52 Lansoprazole 30 Mg Solutab FEEDTUBE 30 mg BID ONLAN Administration Levetiracetam 250 mg 01/23/21 22:00 01/27/21 21:35 Levetiracetam 500 Mg/5 Ml Oral Liqd PO 250 mg QHS NOLAN Administration Linagliptin 5 mg 01/13/21 11:00 01/28/21 08:09 Linagliptin 5 Mg Tab PO 5 mg QDDIAB NOLAN Administration Multi-Ingred Cream/Lotion/Oil/Oint 1 applic 01/15/21 17:14 Mineral Oil/Petrolatum, White Ophth Oint 3.5 Gm OU Q4HR PRN Dry Eye(s) Scopolamine 1 each 01/28/21 11:00 Scopolamine Transdermal Patch 72 Hr TD Q3D NOLAN Senna 17.2 mg 01/25/21 10:00 01/28/21 10:28 Sennosides 8.6 Mg Tab PO 17.2 mg Q8H NOLAN Administration Simple Syrup 15 ml 01/13/21 10:11 01/18/21 06:54 Simple Syrup 15 Ml FEEDTUBE 15 ml PRN PRN Administration Hypoglycemia Simple Syrup 30 ml 01/13/21 10:11 Simple Syrup 15 Ml FEEDTUBE PRN PRN Hypoglycemia Sodium Bicarbonate 325 mg 01/13/21 10:11 01/27/21 09:43 Sodium Bicarbonate 325 Mg Tab FEEDTUBE 325 mg PRN PRN Administration For Clogged Feeding Tube Sodium Chloride 10 ml 01/12/21 22:00 01/28/21 09:53 Sodium Chloride 0.9% 10 Ml Flush Syringe IV 10 ml BID NOLAN Administration Timolol Maleate 1 drops 01/17/21 10:00 01/28/21 09:53 Timolol 0.5% Ophth Soln 5 Ml OU 1 drops QDAY NOLAN Administration Nutrition/Malnutrition Assess - Dietary Evaluation Nutrition/Malnutrition Findings: Nutrition Notes Start: 01/13/21 10:03 Freq: Status: Active Protocol: Document 01/23/21 14:52 NANCY (Rec: 01/23/21 14:58 NANCY [id number]) Nutrition Notes Initial or Follow up Reassessment Current Diagnosis CKD (stage V CKD),Diabetes, Hypertension Other Pertinent Diagnosis Chronic seizure d/o Current Diet TF - Osmolite 1.5 at 50ml/hr Labs/Tests BUN 53 Cr 3.1 Na 135 Phos 3.7 (01/22) BG 187 POC Glu range on 01/21: 134-203 POC Glu range on 01/22: 151-295 Pertinent Medications Humalog Height 5 ft 9 in Weight 56.1 kg Bailey Body Weight (kg) 72.72 BMI 18.2 Weight Status Underweight Subjective/Other Information Pt remains on vent support. Per RN, pt tolerating TF at goal rate. Percent of energy/protein needs met: 100% energy and pro Burn Absent Trauma Absent #2 Nutrition Diagnosis Increased nutrient needs ( specify in comment below) Diagnosis Progress(for reassessment Continues documentation) #1 Nutrition Diagnosis Inadequate oral intake Diagnosis Progress(for reassessment Continues documentation) Is patient on ventilator? Yes Is Patient Ambulatory and/or Out of Bed No REE-([facility]-confined to bed) 1508.844 Kcal/Kg value to use for calculation 35 Approximate Energy Requirements Using 1964 kcal/Kg Calculation Used for Recommendations Kcal/kg Additional Notes Pro needs >1.2g/kg: >67g/day Fluid needs 1-1.5L/day Nutrition Intervention Nutrition Support: Continue Osmolite 1.5 at 50ml/ hr with 150ml water flush q4h. Provides 2200mg K, 1200mg Phos , 1680mg Na. Kcal 1,800 Protein (gm) 75 Carbohydrates (gm) 244 Fat (gm) 59 Fluid (mL) 914 Fiber (gm) 0 Goal #1 TF tolerance Goal #2 TF to meet 100% energy and pro needs Goal #3 Wt maintenance and/or gain Follow-Up By: 01/29/21 Additional Comments F/U: stable TF, BG labs, vent status - Attestation Statement I have reviewed and agreed w/ Malnutrition eval & tx plan: Yes
[2021-01-28] MEDS ORDERED: hydrALAZINE 20 MG/1 ML INJ IV PRN (11:27)
--- NOTE | 2021-01-28 13:08 | Event Note ---
Date: 01/28/21 Patient chart reviewed. Tracheostomy scheduled for tomorrow 01/29/21. Consent obtained from patient's NOK/spouse Kati Pendleton. All questions answered. Hold TF after MN tonight - orders placed.
[2021-01-28] MEDS: EPOETIN ALFA-EPBX 10,000 UNIT/1 ML VIAL SUB-Q PRN (17:58)
[2021-01-28] MEDS: levETIRAcetam 500 MG/5 ML ORAL LIQD PO SCH (21:22)
[2021-01-28] MEDS: INSULIN GLARGINE 100 UNITS/ML SUB-Q SCH (21:24)
[2021-01-29] MEDS: INSULIN LISPRO 100 UNIT/ML SUB-Q SCH ×4 (00:36→19:34)
[2021-01-29] MEDS: SENNOSIDES 8.6 MG TAB PO SCH ×3 (02:20→19:33)
[2021-01-29 09:36] LABS: Hemoglobin 7.5 gm/dl (11.8-15.2); Mean Corpuscular HGB Conc 33 % (32-34); Mean Corpuscular Volume 83 fl (84-94); Platelet Count 226 K/mm3 (140-440); Red Blood Count 2.79 M/mm3 (3.65-5.03)
[2021-01-29 09:46] LABS: Red Cell Distribution Width 22.9 % (13.2-15.2)
--- NOTE | 2021-01-29 09:46 | Progress Note ---
Assessment and Plan Assessment and plan: 80-year-old male with ESRD on HD, HTN, CAD, cerebral arthrosclerosis, vascular dementia who is admitted for new onset seizures. On 01/15 patient was transferred to ICU and intubated for possible status epilepticus. Neuro: New onset seizure disorder; possibly be in status epilepticus vascular dementia chronic SDH cerebral atherosclerosis Neurology consulted, appreciate recommendations CT of the brain noted, no signs of acute infarct MRI showing subacute to chronic subdural hematoma. 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 -Celebrex, Keppra, Depacon -01/14 EEG is significantly abnormal, diffuse background slowing in 3-4 Hz, patient had a vertex waves and sleep spindles noted bilaterally and centrally, 2 events of facial twitching with associated generalized tonic/clonic activities, lasting for at least 15 seconds each followed by suppressions, findings suggestive of encephalopathic process and/or higher tendency of possible focal seizures with generalization, possibility of source of blood loss cannot be totally excluded -01/15 EEG shows burst suppression pattern, intermittent sharp electric activity is noted throughout the recording, pronounced in the right frontal region, findings consistent with generalized seizure activity -01/16 EEG shows findings of generalized burst suppression as well as recurrent triphasic waves sinuses Rocephin for the process, and her drug effect, reports after stage cannot be excluded, possibility of toxic metabolic and/or hepatic and/or renal insufficiency cannot be excluded -01/17 EEG shows significant improvement previous recording, no epileptiform discharges noted, no runs of sharp looking activity is appreciated, intermittent triphasic waves noted mostly bifrontally and improvement in the background activity to 4-6 Hz noted throughout the recording, concerning suggestive of mild encephalopathic process and/or postictal state of possibility of flexor metabolic etiology cannot be totally excluded -01/18 EEG interpreted as mildly encephalopathic process with background 4-5 Hz noted throughout the recording with triphasic waves noted occasionally and vertex waves centrally more pronounced on the left side, no epileptiform discharge appreciated, suggestive of possible toxic metabolic and/or drug effect, possibility of postictal state cannot be totally excluded -Aspiration and seizures precautions -PERRL; no commands; no movement; cough; gag; opens eyes worsening neuro status today v yesterday repeat head CT nothing acute noted UDS has been reordered- no urine on straight cath today - send if able to get urine on keppra 250 mg daily - discussed with pharm; will change to p HD for it is dialyzed out no further sz in the last 24 hours continue to monitor PRN pain meds home timolol no mind altering meds such as narcotics that would complicate neuro exam family updated on plan of care and they are discussing goals of care case management following GOAL: CONTINUE TO MONITOR MENTAL STATUS AND FOR SZ CONTINUE TO SUPPORT FAMILY THEY MAKE GOALS OF CARE DECISIONS Cardio: History of hypertension afib CVR in afib overnight rate 100-110 MAP is less than in SR but still 65-70 EKG this AM on home cardura no pressors statin holding asa due to SDH GOAL MONITOR AFIB AND BP; IF MAP FALLS < 65 NOTIFY TEAM FOR MANAGEMENT Resp: Acute hypoxic respiratory failure -Intubated 01/15 for possible status epilepticus however patient was extubated on 01/17 and had to be reintubated on 01/17 for hypoxia -Wean mechanical ventilation as tolerated see EMR for vent titration -VAP bundle -SPO2 monitoring per protocol -Serial ABGs and CXR -likely will need trach - family has been updated by Dr Gatica and they are discussing goals of care -nebs prn -chest xray noted this AM- no consolidation or infiltrate GOAL: PS/wean as tolerated GI Severe dysphagia; Failure to thrive Chronic PEG tube -On tube feedings changed 01-21 from nephro due to lowphos k phos supplements added -nutrition following bowel reg PPI GOAL: maximize nutritional state End-stage renal disease on HD Nephrology following Dialysis per renal team tolerating HD this AM -Avoid nephrotoxic medications Hypophosphatemia- improving -KPhos scheduled -resume home renal meds when appropriate HypoNa Uremia- trend oliguria no trin[place]; requiring bladder scan and PRN straight caths pt net pos 1.8L over the last 24 hours GOAL: follow electrolytes; defer to nephrology for HD/fluid management Heme: a/c anemia Anemia of chronic disease -Admit H/H 12.339 -Transfuse for hemoglobin less than 7 epo for chronic anemia Thrombocytopenia improving -Hold anticouagualtion in setting of chronic SDH trend CBC- ordered for AM VTE- no AC given SDH GOAL: CONTINUE TO MONITOR ID: leukocytosis -01/13 nares: MRSA positive -01/15 tracheal aspirate with gram-negative rods, mod growth-- pseudomonas dc levaquin due to lowering of sz threshold -if pt spikes fever- reculture and consider antibiotics -PRN tylenol for fever -skin care per RN GOAL: CONTINUE TO MONITOR; PREVENT NOSOCOMIAL INFECTIONS Endo- DM monitor blood glucose avoid hypoglycemia if TF are interrupted hold rapid acting agents home linagliptin, lispro, tradjenta GOAL: MAINTAIN NORMAL BLOOD GLUCOSE History Interval history: This 80-year-old male who is a [facility] with ESRD on HD Thursday, , Thursday), hyperlipidemia, hypertension, vascular dementia, cerebral sclerosis presents to the emergency department after suspected cardiac arrest and initiation of ACLS at the dialysis center 01/12/2021 however upon EMS arrival patient was noted to be actively seizing and chest compressions were discontinued. Upon arrival to the emergency department patient was found to have new onset seizure disorder, acidosis. Nephrology was consulted for ESRD. Patient was initially admitted to the telemetry floor under observation. 01/13/2021. Seizure precautions. Continue IV Keppra and await neurology evaluation. Check EEG and MRI. CT scan negative. Continue hemodialysis per nephrology recommendations. 01/14/2021. Patient is somnolent and lethargic. However, no new seizure activity noted. CT brain is remarkable for white matter changes. Continue seizure precautions. Follow-up EEG and MRI brain. Neurology decrease Keppra to 250 mg twice daily. Ativan as needed for seizure. Continue hemodialysis per nephrology recommendations. 01/15/2021: There is no overt seizure activity, however patient continues to be nonverbal. Patient seen after dialysis. Patient is not responsive to any verbal cues. Patient is moaning. 01/16: Patient had EEG today and was noted to be having seizure activity on 2 mg of Versed and this was uptitrated to 3 mg Versed. Neurology has been informed. Hypokalemia and hypophosphatemia addressed. Likely HD tomorrow. 01/17: Repeat EEG completed today. Severe hypophosphatemia noted today, repleted with IV phos. HD scheduled today. 01/18: Repeat EEG today per neuro, HD per nephro. Hypokalemia today to 2.9 and hypophosphatemia to 1.6, patient received 40 M EQ of KCl, PhosNak for 1 day. Will obtain pm labs. Pateint is less responsive today but Neuro does not think he had another seizure. Thrombocytopenia, will trend CBC. Patient became hypoxic towards the end of dialysis and failed BiPAP therapy and had to be intubated for hypoxia. 01/19: UDS shows presumptive benzo, HD today per nephro, Phos remains low but still has not completed supplementation. Nephro suggests flumazenil. 01/20: On CMV tidal volume 550, rate of 18, PEEP of 6 on 45% FiO2, patient has a better physical exam with neurology this morning. AM labs pending. 01/20 no acute events overnight 01/21 noted to be in afib this AM 01/22. Pulmonary considering extubation. However patient failed PSV trials. 01/23/2021. Pulmonary had a long discussion with family regarding tracheostomy and vent weaning. Patient continued on mechanical ventilation. Continue Keppra/AEDs. No new seizure activity 01/24/2021. Patient remains on mechanical ventilation with PSV/CPAP mode, FiO2 35%, CPAP 6, pressure support 15. Pulmonary consult surgery for tracheostomy. Continue Keppra and seizure precautions. Patient currently with A. fib but rate controlled. Consult cardiology for further evaluation. 01/28 no acute events overnight 01/29 no acute events overnight for trach today Neuro: New onset seizure disorder; possibly be in status epilepticus vascular dementia chronic SDH cerebral atherosclerosis frail debilitated elderly AMS Neurology consulted, appreciate recommendations CT of the brain noted, no signs of acute infarct MRI showing subacute to chronic subdural hematoma. 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 -on keppra with no further seizures -01/14 EEG is significantly abnormal, diffuse background slowing in 3-4 Hz, patient had a vertex waves and sleep spindles noted bilaterally and centrally, 2 events of facial twitching with associated generalized tonic/clonic activities, lasting for at least 15 seconds each followed by suppressions, findings suggestive of encephalopathic process and/or higher tendency of possible focal seizures with generalization, possibility of source of blood loss cannot be totally excluded -01/15 EEG shows burst suppression pattern, intermittent sharp electric activity is noted throughout the recording, pronounced in the right frontal region, findings consistent with generalized seizure activity -01/16 EEG shows findings of generalized burst suppression as well as recurrent triphasic waves sinuses Rocephin for the process, and her drug effect, reports after stage cannot be excluded, possibility of toxic metabolic and/or hepatic and/or renal insufficiency cannot be excluded -01/17 EEG shows significant improvement previous recording, no epileptiform discharges noted, no runs of sharp looking activity is appreciated, intermittent triphasic waves noted mostly bifrontally and improvement in the background activity to 4-6 Hz noted throughout the recording, concerning suggestive of mild encephalopathic process and/or postictal state of possibility of flexor metabolic etiology cannot be totally excluded -01/18 EEG interpreted as mildly encephalopathic process with background 4-5 Hz noted throughout the recording with triphasic waves noted occasionally and vertex waves centrally more pronounced on the left side, no epileptiform discharge appreciated, suggestive of possible toxic metabolic and/or drug effect, possibility of postictal state cannot be totally excluded -Aspiration and seizures precautions -PERRL; opens eyes, tracking me; will turn head but squeeze hands for me pt profoundly weak -will need aggressive PT/OT PRN pain meds home timolol no mind altering meds such as narcotics that would complicate neuro exam family updated on plan of care and they are discussing goals of care case management following case management following possible d/c to LTAC Wed Cardio: History of hypertension afib CVR -- resolved SR with WAP on home [employer] cards has seen patient and sign off; call PRN no pressors statin holding asa due to SDH Resp: Acute hypoxic respiratory failure requiring trach -Intubated 01/15 for possible status epilepticus however patient was extubated on 01/17 and had to be reintubated on 01/17 for hypoxia -Wean mechanical ventilation as tolerated 12-450-6-.25 has failed PS trials -VAP bundle -SPO2 monitoring per protocol -Serial ABGs and CXR -nebs prn -chest xray noted this AM- no consolidation or infiltrate -scopolamine for secretions -trach today without complication no 8 shiley placed xray noted post op -AM chest xray noted GI malnutriton; Failure to thrive Chronic PEG tube -NPO P MN last night for trach today resume TF post op fluids to be dc with TF -nutrition following bowel reg PPI End-stage renal disease on HD Nephrology following Dialysis per renal team will have HD today in prep for surgery - pulled 2.5 L off yesterday per EMR pt still pos 1.1 L over the 24 hours -Avoid nephrotoxic medications Hypophosphatemia- improving continue to monitor -resume home renal meds when appropriate oliguria no [place]in[place]; requiring bladder scan and PRN straight caths AM labs ordered Heme: a/c anemia Anemia of chronic disease -Admit H/H 12.3 -Transfuse for hemoglobin less than 7 -epo for chronic anemia -Hold anticoagulation in setting of chronic SDH VTE- no AC given SDH ID: leukocytosis -01/13 nares: MRSA positive -01/15 tracheal aspirate with gram-negative rods, mod growth-- pseudomonas dc levaquin due to lowering of sz threshold -if pt spikes fever- reculture and consider antibiotics -PRN tylenol for fever -skin care per RN Endo- DM with hyperglycemia monitor blood glucose avoid hypoglycemia if TF are interrupted hold rapid acting agents on D5 1/2 NS given TF held dc fluids when TF restarted home linagliptin, lispro, tradjenta The high probability of a clinically significant, sudden or life threatening deterioration of the [respiratory, neurological] system(s) required my full and direct attention, intervention and personal management. The aggregate critical care time was [60] minutes. This time is in addition to time spent performing reported procedures but includes the following: [x] Data Review and interpretation [x] Patient assessment and monitoring of vital signs [x] Documentation [x] Medication orders and management Disposition Plan: tbd Total Time Spent with Patient (Minutes): 60 History Interval history: no acute events overnight Hospitalist Physical - Constitutional Vitals: Temp Pulse Resp BP Pulse Ox 98 F 90 13 129/60 100 01/29/21 08:00 01/29/21 07:59 01/29/21 06:00 01/29/21 07:59 01/29/21 07:59 General appearance: Present: no acute distress - EENT Eyes: Present: PERRL ENT: clear oral mucosa - Neck Neck: Present: supple - Respiratory Respiratory effort: normal, other - Cardiovascular Rhythm: regular Heart Sounds: Present: S1 & S2 - Extremities Extremities: no ischemia Peripheral Pulses: within normal limits - Abdominal General gastrointestinal: soft - Integumentary Integumentary: Present: clear, warm, dry - Psychiatric Psychiatric: other - Neurologic Neurologic: other - Allied Health Allied health notes reviewed: nursing, RT, social work, case management Results - Labs CBC & Chem 7: 01/29/21 09:35 01/29/21 09:35 Labs: Laboratory Last Values WBC 21.6 K/mm3 (4.5-11.0) H 01/26/21 06:47 RBC 3.18 M/mm3 (3.65-5.03) L 01/26/21 06:47 Hgb 8.4 gm/dl (11.8-15.2) L 01/26/21 06:47 Hct 26.6 % (35.5-45.6) L 01/26/21 06:47 MCV 84 fl (84-94) 01/26/21 06:47 MCH 27 pg (28-32) L 01/26/21 06:47 MCHC 32 % (32-34) 01/26/21 06:47 RDW 21.8 % (13.2-15.2) H 01/26/21 06:47 Plt Count 182 K/mm3 (140-440) 01/26/21 06:47 Lymph % (Auto) 6.3 % (13.4-35.0) L 01/15/21 05:22 [place] % (Auto) 5.4 % (0.0-7.3) 01/15/21 05:22 Eos % (Auto) 0.0 % (0.0-4.3) 01/15/21 05:22 Baso % (Auto) 0.1 % (0.0-1.8) 01/15/21 05:22 Lymph # (Auto) 0.7 K/mm3 (1.2-5.4) L 01/15/21 05:22 [place] # (Auto) 0.6 K/mm3 (0.0-0.8) 01/15/21 05:22 Eos # (Auto) 0.0 K/mm3 (0.0-0.4) 01/15/21 05:22 Baso # (Auto) 0.0 K/mm3 (0.0-0.1) 01/15/21 05:22 Seg Neutrophils % 88.2 % (40.0-70.0) H 01/15/21 05:22 Seg Neutrophils # 9.8 K/mm3 (1.8-7.7) H 01/15/21 05:22 PT 15.2 Sec. (12.2-14.9) H 01/22/21 04:20 INR 1.15 (0.87-1.13) H 01/22/21 04:20 APTT 38.7 Sec. (24.2-36.6) H 01/28/21 12:58 ABG pH 7.509 (7.320-7.450) H 01/26/21 05:00 POC ABG pCO2 35.8 mmHg (32.0-48.0) 01/26/21 05:00 ABG pCO2 39.5 mm Hg 01/22/21 04:00 POC ABG pO2 87.7 mmHg (83-108) 01/26/21 05:00 ABG pO2 118.8 mm Hg (80.0-90.0) H 01/22/21 04:00 POC ABG HCO3 27.9 01/26/21 05:00 ABG HCO3 24.5 mmol/L (20.0-26.0) 01/22/21 04:00 ABG O2 Saturation 97.1 (0-100) 01/26/21 05:00 ABG O2 Content 13.2 (0.0-44) 01/22/21 04:00 POC ABG Base Excess 4.6 01/26/21 05:00 ABG Base Excess -0.1 mmol/L (-2.0-3.0) 01/22/21 04:00 ABG Hemoglobin 8.7 (12.0-17.5) L 01/26/21 05:00 ABG Oxyhemoglobin 95.2 (94-98) 01/26/21 05:00 ABG Carboxyhemoglobin 1.5 % (0.0-5.0) 01/22/21 04:00 ABG Methemoglobin 0.3 (0.0-1.5) 01/26/21 05:00 ABG Sodium 130.9 mmol/L (136.0-145.0) L 01/26/21 05:00 ABG Potassium 5.5 mmol/L (3.40-4.50) H 01/26/21 05:00 ABG Chloride 98.0 mmol/L (98-107) 01/26/21 05:00 ABG Glucose 219 mg/dL (65-95) H 01/26/21 05:00 Oxyhemoglobin 96.5 % (95.0-99.0) 01/22/21 04:00 Carboxyhemoglobin 1.7 (0.5-1.5) H 01/26/21 05:00 FiO2 35 % 01/22/21 04:00 FiO2 % 25.0 01/26/21 05:00 Sodium 131 mmol/L (137-145) L 01/28/21 05:18 Potassium 5.6 mmol/L (3.6-5.0) H 01/28/21 05:18 Chloride 92.0 mmol/L (98-107) L 01/28/21 05:18 Carbon Dioxide 28 mmol/L (22-30) 01/28/21 05:18 Anion Gap 17 mmol/L 01/28/21 05:18 BUN 58 mg/dL (9-20) H 01/28/21 05:18 Creatinine 2.8 mg/dL (0.8-1.3) H 01/28/21 05:18 Estimated GFR 26 ml/min 01/28/21 05:18 BUN/Creatinine Ratio 21 % 01/28/21 05:18 Glucose 127 mg/dL (75-100) H 01/28/21 05:18 POC Glucose 103 mg/dL (70-105) 01/29/21 08:06 Calcium 7.8 mg/dL (8.4-10.2) L 01/28/21 05:18 Phosphorus 2.30 mg/dL (2.5-4.5) L 01/28/21 05:15 Magnesium 2.00 mg/dL (1.7-2.3) 01/22/21 04:20 Total Bilirubin 0.20 mg/dL (0.1-1.2) 01/22/21 04:20 Direct Bilirubin < 0.2 mg/dL (0-0.2) 01/12/21 14:36 Indirect Bilirubin 0.1 mg/dL 01/12/21 14:36 AST 37 units/L (5-40) 01/22/21 04:20 ALT 23 units/L (7-56) 01/22/21 04:20 Alkaline Phosphatase 108 units/L (35-129) 01/22/21 04:20 Ammonia 19.0 umol/L (25-60) L 01/22/21 04:20 Total Protein 5.2 g/dL (6.3-8.2) L 01/22/21 04:20 Albumin 1.9 g/dL (3.9-5) L 01/22/21 04:20 Albumin/Globulin Ratio 0.6 % 01/22/21 04:20 TSH 4.730 mlU/mL (0.270-4.200) H 01/22/21 04:20 Arterial Blood Glucose 219 mg/dL (65-95) H 01/26/21 05:00 Arterial Blood Ionized Calcium 4.3 mg/dL (4.6-5.3) L 01/26/21 05:00 Nasal Screen MRSA (PCR) Positive (Negative) 01/13/21 Unknown Urine Opiates Screen Negative 01/18/21 14:25 Urine Methadone Screen Negative 01/18/21 14:25 Ur Barbiturates Screen Negative 01/18/21 14:25 Phenytoin 6.5 ug/mL (10.0-20.0) L 01/16/21 09:15 Valproic Acid 48.4 ug/mL (50-100) L 01/20/21 14:49 Ur Phencyclidine Scrn Negative 01/18/21 14:25 Ur Amphetamines Screen Negative 01/18/21 14:25 U Benzodiazepines Scrn Presumptive positive 01/18/21 14:25 Urine Cocaine Screen Negative 01/18/21 14:25 U Marijuana (THC) Screen Negative 01/18/21 14:25 Drugs of Abuse Note Disclamer 01/18/21 14:25 Coronavirus (PCR) Negative (Negative) 01/15/21 08:00 Hepatitis A IgM Ab Non-reactive (NonReactive) 01/15/21 09:15 Hep Bs Antigen Non-reactive (Negative) 01/15/21 09:15 Hep B Core IgM Ab Non-reactive (NonReactive) 01/15/21 09:15 Hepatitis C Antibody Non-reactive (NonReactive) 01/15/21 09:15 [place]/IV: Voiding Method Incontinent Active Medications - Current Medications Current Medications: Generic Name Dose Route Start Last Admin Trade Name Freq PRN Reason Stop Dose Admin Acetaminophen 650 mg 01/12/21 19:30 Acetaminophen 325 Mg Tab PO Q4H PRN Pain MILD(1-3)/Fever >100.5/ABEL Albuterol 2.5 mg 01/12/21 19:30 Albuterol 2.5 Mg/3 Ml Nebu IH Q4HRT PRN Shortness Of Breath Lipase/Protease/Amylase 1 each 01/13/21 10:11 01/27/21 09:43 Lipase 10,500/Protease 25,000/Amylase 43,750 (Units) Dr Silveira FEEDTUBE 1 each PRN PRN Administration For Clogged Feeding Tube Atorvastatin Calcium 40 mg 01/12/21 22:00 01/28/21 21:23 Atorvastatin 40 Mg Tab PO 40 mg QHS NOLAN Administration Calcitriol 1 mcg 01/13/21 10:00 01/28/21 09:51 Calcitriol 0.5 Mcg Cap PO 1 mcg QDAY NOLAN Administration Docusate Sodium 100 mg 01/17/21 09:00 Docusate Sodium 100 Mg/10 Ml Oral Liqd PO BID PRN Constipation Doxazosin Mesylate 2 mg 01/18/21 10:00 01/28/21 09:51 Doxazosin 1 Mg Tab PO 2 mg QDAY NOLAN Administration Heparin Sodium (Porcine) 2,000 unit 01/28/21 10:39 Heparin 10,000 Units/10 Ml Vial IV DIONNA PRN hemodialysis Hydralazine HCl 20 mg 01/28/21 11:27 Hydralazine 20 Mg/1 Ml Inj IV Q4HR PRN Hypertension Hydrophilic Ointment 1 applic 01/15/21 17:14 Lip Therapy Vaseline TP Q2HR PRN Dry Lips Sodium Chloride 100 mls @ 999 mls/hr 01/26/21 12:29 Nacl 0.9% IV DIONNA PRN Hypotension Dextrose/Sodium Chloride 1,000 mls @ 42 mls/hr 01/28/21 08:00 01/29/21 08:22 D5/0.45ns IV 42 mls/hr DIRECT NOLAN Administration Insulin Glargine 5 units 01/25/21 22:00 01/28/21 21:24 Insulin Glargine 100 Units/Ml SUB-Q 5 units QHS NOLAN Administration Insulin Human Lispro 0 unit 01/16/21 00:00 01/29/21 06:21 Insulin Lispro 100 Unit/Ml SUB-Q Not Given Q6HR NOLAN Protocol Lansoprazole 30 mg 01/12/21 22:00 01/28/21 21:23 Lansoprazole 30 Mg Solutab FEEDTUBE 30 mg BID NOLAN Administration Levetiracetam 250 mg 01/23/21 22:00 01/28/21 21:22 Levetiracetam 500 Mg/5 Ml Oral Liqd PO 250 mg QHS NOLAN Administration Linagliptin 5 mg 01/13/21 11:00 01/28/21 08:09 Linagliptin 5 Mg Tab PO 5 mg QDDIAB NOLAN Administration Multi-Ingred Cream/Lotion/Oil/Oint 1 applic 01/15/21 17:14 Mineral Oil/Petrolatum, White Ophth Oint 3.5 Gm OU Q4HR PRN Dry Eye(s) Scopolamine 1 each 01/28/21 11:00 01/28/21 11:35 Scopolamine Transdermal Patch 72 Hr TD 1 each Q3D NOLAN Administration Senna 17.2 mg 01/25/21 10:00 01/29/21 02:20 Sennosides 8.6 Mg Tab PO Not Given Q8H NOLAN Simple Syrup 15 ml 01/13/21 10:11 01/18/21 06:54 Simple Syrup 15 Ml FEEDTUBE 15 ml PRN PRN Administration Hypoglycemia Simple Syrup 30 ml 01/13/21 10:11 Simple Syrup 15 Ml FEEDTUBE PRN PRN Hypoglycemia Sodium Bicarbonate 325 mg 01/13/21 10:11 01/27/21 09:43 Sodium Bicarbonate 325 Mg Tab FEEDTUBE 325 mg PRN PRN Administration For Clogged Feeding Tube Sodium Chloride 10 ml 01/12/21 22:00 01/28/21 21:23 Sodium Chloride 0.9% 10 Ml Flush Syringe IV 10 ml BID NOLAN Administration Timolol Maleate 1 drops 01/17/21 10:00 01/28/21 09:53 Timolol 0.5% Ophth Soln 5 Ml OU 1 drops QDAY NOLAN Administration Nutrition/Malnutrition Assess - Dietary Evaluation Nutrition/Malnutrition Findings: Nutrition Notes Start: 01/13/21 10:03 Freq: Status: Active Protocol: Document 01/23/21 14:52 NANCY (Rec: 01/23/21 14:58 [facility] [id number]) Nutrition Notes Initial or Follow up Reassessment Current Diagnosis CKD (stage V CKD),Diabetes, Hypertension Other Pertinent Diagnosis Chronic seizure d/o Current Diet TF - Osmolite 1.5 at 50ml/hr Labs/Tests BUN 53 Cr 3.1 Na 135 Phos 3.7 (01/22) BG 187 POC Glu range on 01/21: 134-203 POC Glu range on 01/22: 151-295 Pertinent Medications Humalog Height 5 ft 9 in Weight 56.1 kg [place] Body Weight (kg) 72.72 BMI 18.2 Weight Status Underweight Subjective/Other Information Pt remains on vent support. Per RN, pt tolerating TF at goal rate. Percent of energy/protein needs met: 100% energy and pro Burn Absent Trauma Absent #2 Nutrition Diagnosis Increased nutrient needs ( specify in comment below) Diagnosis Progress(for reassessment Continues documentation) #1 Nutrition Diagnosis Inadequate oral intake Diagnosis Progress(for reassessment Continues documentation) Is patient on ventilator? Yes Is Patient Ambulatory and/or Out of Bed No REE-([place] [facility]-confined to bed) 1508.844 Kcal/Kg value to use for calculation 35 Approximate Energy Requirements Using 1964 kcal/Kg Calculation Used for Recommendations Kcal/kg Additional Notes Pro needs >1.2g/kg: >67g/day Fluid needs 1-1.5L/day Nutrition Intervention Nutrition Support: Continue Osmolite 1.5 at 50ml/ hr with 150ml water flush q4h. Provides 2200mg K, 1200mg Phos , 1680mg Na. Kcal 1,800 Protein (gm) 75 Carbohydrates (gm) 244 Fat (gm) 59 Fluid (mL) 914 Fiber (gm) 0 Goal #1 TF tolerance Goal #2 TF to meet 100% energy and pro needs Goal #3 Wt maintenance and/or gain Follow-Up By: 01/29/21 Additional Comments F/U: stable TF, BG labs, vent status - Attestation Statement I have reviewed and agreed w/ Malnutrition eval & tx plan: Yes
[2021-01-29 09:52] LABS: INR 1.15 (0.87-1.13)
--- NOTE | 2021-01-29 09:59 | Progress Note ---
Assessment and Plan 80 y/o with chronic seizure disorder, ESRD, HTN admitted with status epilepticus, requiring intubation for burst suppression. 01/29/21: Trach today. LTACH tomorrow. Continue supportive measures. Continues to fail PSV trials daily. 01/28/21: CM to follow up with today in regards to final decision. Patient is tentatively scheduled for surgery tomorrow. Reached out to renal to ask them to dialyze today to help with fluid and electrolytes so that there would be no issues or interruptions for tomorrow. Continues to fail PSV with episodes of apnea. Follow up any new surgery recs for today. Did order coags. Poor prognosis given lack of mental recovery. This was discussed with the family at length. 01/25/21: Appreciate surgery eval on yesterday. Await anesthesia eval and discussion with family. Will restart tube feeds, add bowel regimen and give laxative today. Failed PSV again today as he was having periods of apnea. Guarded to poor prognosis. 01/24/21: Consult Dr. Guerrero for trach, patient already has peg. Continue supportive measures. Guarded to poor prognosis. 01/23/21: Long discussion with family over the phone at bedside. They had several questions about trach and weaning. Answered all questions as best as possible. Family going to discuss again today and will let us known tomorrow. Continue supportive measures. Guarded to poor prognosis. 01/22/21: Will discuss on rounds today the possibility of cutting back more on anti-epileptic meds to see if this helps with his mental state. Will reach out to family today to discuss next options and goals of care. He is currently not a candidate for extubation and may need trach and peg. Will call with CM. Continue daily PSV trials. 01/21/21: FiO2 now down to 30%. RT to attempt PSV today to see how patient tolerates. Not a candidate for extubation given his current mental state. Neuro did decrease meds more on yesterday Keppra daily and BID Valproic Acid. Will call family to update on current level of care. Overall prognosis remains guarded to poor. Will get Head CT today to rule out any new areas of ischemia or bleeding. 01/20/21: FiO2 stable on 45%. Hold on repeat Imaging for now. Will hold on Flumazenil therapy given his prior history of seizure. May need more HD tomorrow. Spoke with Daughter and over the phone to update and they asked me to call them again tomorrow. Will tell them that visiting hours are present if they choose to come. Guarded prognosis. 01/19/21: Dropped FiO2 to 45%. Await neurology eval today but need to consider repeat imaging of head as I have not explanation as to why patient is not responsive. Patient does not make any urine so not able to send UDS. Had HD on yesterday so next one would likely be Thursday. Renal to address electrolytes. Very very guarded prognosis. 01/18/21: EEG not officially read, but prelim is negative for seizures, just diffuse slowing. ABG is stable, not hypercapnic. Will send UDS to see if benzos are still in system. spoke with renal who will do HD today and manage electrolytes. DId order mag level given low levels of potassium. Overall prognosis is very guarded to poor. If not more responsive tomorrow, may need to consider repeat imaging of head/brain. 01/17/21: Extubate. HD today per renal. If tolerates both, transfer back to floor on new anti-epileptic regimen 1. Continue Versed at 3mg IV per Hour for the next 24 hours. 2. Repeat EEG tomorrow off Versed. 3. Will attempt to get this before HD tomorrow. 4. HD per renal, tomorrow as patient got HD yesterday CCT 31 minutes. Subjective Date of service: 01/29/21 Principal diagnosis: witnessed seizure hx of ESRD ,hyponatremia Interval history: No acute events. To OR today for trach. Objective Vital Signs - 12hr 01/28/21 01/28/21 01/28/21 22:00 22:08 22:30 Temperature Pulse Rate 108 H 104 H 98 H Pulse Rate [ From Monitor] Respiratory 19 18 13 Rate Blood Pressure 123/65 138/62 127/65 O2 Sat by Pulse 100 100 100 Oximetry 01/28/21 01/28/21 01/28/21 22:33 23:00 23:30 Temperature Pulse Rate 109 H 107 H 106 H Pulse Rate [ From Monitor] Respiratory 17 24 Rate Blood Pressure 147/72 110/70 129/58 O2 Sat by Pulse 100 100 Oximetry 01/29/21 01/29/21 01/29/21 00:00 00:30 01:00 Temperature 98.9 F Pulse Rate 103 H 100 H 100 H Pulse Rate [ 98 H From Monitor] Respiratory 14 13 15 Rate Blood Pressure 129/65 124/64 133/66 O2 Sat by Pulse 100 100 100 Oximetry 01/29/21 01/29/21 01/29/21 01:30 02:00 02:30 Temperature Pulse Rate 104 H 96 H 101 H Pulse Rate [ From Monitor] Respiratory 20 19 21 Rate Blood Pressure 140/68 151/68 142/68 O2 Sat by Pulse 100 100 100 Oximetry 01/29/21 01/29/21 01/29/21 03:00 03:21 03:31 Temperature 97.9 F Pulse Rate 100 H 95 H Pulse Rate [ From Monitor] Respiratory 18 13 Rate Blood Pressure 139/67 121/56 O2 Sat by Pulse 100 100 Oximetry 01/29/21 01/29/21 01/29/21 04:00 04:30 05:00 Temperature 97.9 F Pulse Rate 97 H 91 H 95 H Pulse Rate [ 98 H From Monitor] Respiratory 16 17 13 Rate Blood Pressure 119/60 123/64 116/61 O2 Sat by Pulse 100 100 100 Oximetry 01/29/21 01/29/21 01/29/21 05:30 05:47 06:00 Temperature Pulse Rate 93 H 89 90 Pulse Rate [ From Monitor] Respiratory 16 13 Rate Blood Pressure 137/90 128/65 139/63 O2 Sat by Pulse 100 100 100 Oximetry 01/29/21 01/29/21 07:59 08:00 Temperature 98 F Pulse Rate 90 Pulse Rate [ From Monitor] Respiratory Rate Blood Pressure 129/60 O2 Sat by Pulse 100 Oximetry Constitutional: no acute distress, comatose (secondary to meds for seizure) ENT: other (orally intubated and sedated) Neck: supple Effort: normal Ascultation: Bilateral: clear Cardiovascular: regular rate and rhythm Gastrointestinal: normoactive bowel sounds Integumentary: normal Extremities: no edema, pulses normal CBC and BMP: 01/29/21 09:35 01/29/21 09:35 ABG, PT/INR, D-dimer: ABG ABG pH 7.509 (7.320-7.450) H 01/26/21 05:00 POC ABG pCO2 35.8 mmHg (32.0-48.0) 01/26/21 05:00 ABG pCO2 39.5 mm Hg 01/22/21 04:00 POC ABG pO2 87.7 mmHg (83-108) 01/26/21 05:00 ABG pO2 118.8 mm Hg (80.0-90.0) H 01/22/21 04:00 POC ABG HCO3 27.9 01/26/21 05:00 ABG O2 Saturation 97.1 (0-100) 01/26/21 05:00 PT/INR, D-dimer PT 15.3 Sec. (12.2-14.9) H 01/29/21 09:35 INR 1.15 (0.87-1.13) H 01/29/21 09:35 Abnormal lab findings: Abnormal Labs 01/12/21 01/12/21 01/12/21 14:12 14:36 14:36 WBC 11.2 H RBC Hgb Hct MCV MCH 27 L RDW 21.0 H Plt Count Lymph % (Auto) Lymph # (Auto) Seg Neutrophils % 79.6 H Seg Neutrophils # 8.9 H PT INR APTT ABG pH POC ABG pCO2 POC ABG pO2 ABG pO2 ABG Hemoglobin ABG Oxyhemoglobin ABG Sodium ABG Potassium ABG Glucose Carboxyhemoglobin Sodium 136 L Potassium Chloride 95.8 L Carbon Dioxide 19 L BUN Creatinine 2.0 H Glucose 163 H POC Glucose 166 H Calcium 8.2 L Phosphorus Ammonia Total Protein 5.4 L Albumin 3.4 L TSH Arterial Blood Glucose Arterial Blood Ionized Calcium Phenytoin Valproic Acid 01/13/21 01/13/21 01/13/21 05:19 12:14 16:16 WBC RBC Hgb Hct MCV MCH RDW Plt Count Lymph % (Auto) Lymph # (Auto) Seg Neutrophils % Seg Neutrophils # PT INR APTT ABG pH POC ABG pCO2 POC ABG pO2 ABG pO2 ABG Hemoglobin ABG Oxyhemoglobin ABG Sodium ABG Potassium ABG Glucose Carboxyhemoglobin Sodium 134 L Potassium Chloride 95.5 L Carbon Dioxide BUN 23 H Creatinine 2.6 H Glucose 168 H POC Glucose 142 H 163 H Calcium Phosphorus Ammonia Total Protein 5.8 L Albumin 3.3 L TSH Arterial Blood Glucose Arterial Blood Ionized Calcium Phenytoin Valproic Acid 01/13/21 01/13/21 01/14/21 20:22 23:57 06:31 WBC RBC Hgb Hct MCV MCH RDW Plt Count Lymph % (Auto) Lymph # (Auto) Seg Neutrophils % Seg Neutrophils # PT INR APTT ABG pH POC ABG pCO2 POC ABG pO2 ABG pO2 ABG Hemoglobin ABG Oxyhemoglobin ABG Sodium ABG Potassium ABG Glucose Carboxyhemoglobin Sodium Potassium Chloride Carbon Dioxide BUN Creatinine Glucose POC Glucose 209 H 189 H 236 H Calcium Phosphorus Ammonia Total Protein Albumin TSH Arterial Blood Glucose Arterial Blood Ionized Calcium Phenytoin Valproic Acid 01/14/21 01/14/21 01/14/21 08:57 08:57 12:22 WBC 12.0 H RBC Hgb 11.3 L Hct 34.5 L MCV MCH RDW 20.6 H Plt Count Lymph % (Auto) 6.4 L Lymph # (Auto) 0.8 L Seg Neutrophils % 87.4 H Seg Neutrophils # 10.5 H PT INR APTT ABG pH POC ABG pCO2 POC ABG pO2 ABG pO2 ABG Hemoglobin ABG Oxyhemoglobin ABG Sodium ABG Potassium ABG Glucose Carboxyhemoglobin Sodium 131 L Potassium Chloride 93.7 L Carbon Dioxide BUN 37 H Creatinine 3.7 H Glucose 261 H POC Glucose 280 H Calcium Phosphorus Ammonia Total Protein Albumin TSH Arterial Blood Glucose Arterial Blood Ionized Calcium Phenytoin Valproic Acid 01/14/21 01/14/21 01/15/21 16:15 22:28 04:43 WBC RBC Hgb Hct MCV MCH RDW Plt Count Lymph % (Auto) Lymph # (Auto) Seg Neutrophils % Seg Neutrophils # PT INR APTT ABG pH POC ABG pCO2 POC ABG pO2 ABG pO2 ABG Hemoglobin ABG Oxyhemoglobin ABG Sodium ABG Potassium ABG Glucose Carboxyhemoglobin Sodium Potassium Chloride Carbon Dioxide BUN Creatinine Glucose POC Glucose 289 H 252 H 243 H Calcium Phosphorus Ammonia Total Protein Albumin TSH Arterial Blood Glucose Arterial Blood Ionized Calcium Phenytoin Valproic Acid 01/15/21 01/15/21 01/15/21 05:22 05:22 08:56 WBC 11.1 H RBC Hgb 11.0 L Hct 33.3 L MCV 83 L MCH 27 L RDW 20.6 H Plt Count Lymph % (Auto) 6.3 L Lymph # (Auto) 0.7 L Seg Neutrophils % 88.2 H Seg Neutrophils # 9.8 H PT INR APTT ABG pH POC ABG pCO2 POC ABG pO2 ABG pO2 ABG Hemoglobin ABG Oxyhemoglobin ABG Sodium ABG Potassium ABG Glucose Carboxyhemoglobin Sodium 130 L Potassium Chloride 92.0 L Carbon Dioxide BUN 49 H Creatinine 4.2 H Glucose 241 H POC Glucose Calcium Phosphorus Ammonia Total Protein Albumin TSH Arterial Blood Glucose Arterial Blood Ionized Calcium Phenytoin Valproic Acid 45.9 L 01/15/21 01/15/21 01/15/21 16:42 18:14 23:10 WBC RBC Hgb Hct MCV MCH RDW Plt Count Lymph % (Auto) Lymph # (Auto) Seg Neutrophils % Seg Neutrophils # PT INR APTT ABG pH 7.463 H POC ABG pCO2 POC ABG pO2 377.4 H ABG pO2 ABG Hemoglobin 11.6 L ABG Oxyhemoglobin 98.6 H ABG Sodium 130.1 L ABG Potassium ABG Glucose 254 H Carboxyhemoglobin Sodium Potassium Chloride Carbon Dioxide BUN Creatinine Glucose POC Glucose 218 H 279 H Calcium Phosphorus Ammonia Total Protein Albumin TSH Arterial Blood Glucose 254 H Arterial Blood Ionized Calcium 4.5 L Phenytoin Valproic Acid 01/16/21 01/16/21 01/16/21 03:10 05:11 05:17 WBC RBC Hgb 10.4 L Hct 31.8 L MCV MCH 27 L RDW 20.3 H Plt Count 132 L Lymph % (Auto) Lymph # (Auto) Seg Neutrophils % Seg Neutrophils # PT INR APTT ABG pH POC ABG pCO2 POC ABG pO2 174.4 H ABG pO2 ABG Hemoglobin 10.3 L ABG Oxyhemoglobin 98.6 H ABG Sodium 129.9 L ABG Potassium 3.2 L ABG Glucose 202 H Carboxyhemoglobin Sodium Potassium Chloride Carbon Dioxide BUN Creatinine Glucose POC Glucose 193 H Calcium Phosphorus Ammonia Total Protein Albumin TSH Arterial Blood Glucose 202 H Arterial Blood Ionized Calcium Phenytoin Valproic Acid 01/16/21 01/16/21 01/16/21 05:17 09:15 11:33 WBC RBC Hgb Hct MCV MCH RDW Plt Count Lymph % (Auto) Lymph # (Auto) Seg Neutrophils % Seg Neutrophils # PT INR APTT ABG pH POC ABG pCO2 POC ABG pO2 ABG pO2 ABG Hemoglobin ABG Oxyhemoglobin ABG Sodium ABG Potassium ABG Glucose Carboxyhemoglobin Sodium Potassium 3.4 L Chloride Carbon Dioxide BUN 36 H Creatinine 3.2 H Glucose 216 H POC Glucose 174 H Calcium 8.3 L Phosphorus 1.10 L Ammonia Total Protein Albumin TSH Arterial Blood Glucose Arterial Blood Ionized Calcium Phenytoin 6.5 L Valproic Acid 01/16/21 01/17/21 01/17/21 18:13 00:10 04:00 WBC RBC Hgb Hct MCV MCH RDW Plt Count Lymph % (Auto) Lymph # (Auto) Seg Neutrophils % Seg Neutrophils # PT INR APTT ABG pH POC ABG pCO2 POC ABG pO2 ABG pO2 ABG Hemoglobin 10.1 L ABG Oxyhemoglobin ABG Sodium 130.1 L ABG Potassium 3.3 L ABG Glucose 153 H Carboxyhemoglobin Sodium Potassium Chloride Carbon Dioxide BUN Creatinine Glucose POC Glucose 162 H 150 H Calcium Phosphorus Ammonia Total Protein Albumin TSH Arterial Blood Glucose 153 H Arterial Blood Ionized Calcium Phenytoin Valproic Acid 01/17/21 01/17/21 01/17/21 05:30 05:48 11:14 WBC RBC Hgb Hct MCV MCH RDW Plt Count Lymph % (Auto) Lymph # (Auto) Seg Neutrophils % Seg Neutrophils # PT INR APTT ABG pH POC ABG pCO2 POC ABG pO2 ABG pO2 ABG Hemoglobin ABG Oxyhemoglobin ABG Sodium ABG Potassium ABG Glucose Carboxyhemoglobin Sodium 136 L Potassium 3.5 L Chloride Carbon Dioxide BUN 48 H Creatinine 3.5 H Glucose 165 H POC Glucose 149 H Calcium 8.0 L Phosphorus 0.80 L* D Ammonia 22.0 L Total Protein Albumin TSH Arterial Blood Glucose Arterial Blood Ionized Calcium Phenytoin Valproic Acid 01/17/21 01/17/21 01/17/21 11:43 17:34 18:46 WBC RBC Hgb Hct MCV MCH RDW Plt Count Lymph % (Auto) Lymph # (Auto) Seg Neutrophils % Seg Neutrophils # PT INR APTT ABG pH POC ABG pCO2 POC ABG pO2 ABG pO2 ABG Hemoglobin ABG Oxyhemoglobin ABG Sodium ABG Potassium ABG Glucose Carboxyhemoglobin Sodium Potassium Chloride Carbon Dioxide BUN Creatinine Glucose POC Glucose 160 H 209 H Calcium Phosphorus 2.20 L D Ammonia Total Protein Albumin TSH Arterial Blood Glucose Arterial Blood Ionized Calcium Phenytoin Valproic Acid 01/17/21 01/17/21 01/18/21 19:00 23:19 03:28 WBC RBC Hgb Hct MCV MCH RDW Plt Count Lymph % (Auto) Lymph # (Auto) Seg Neutrophils % Seg Neutrophils # PT INR APTT ABG pH POC ABG pCO2 POC ABG pO2 190.2 H ABG pO2 ABG Hemoglobin 11.9 L ABG Oxyhemoglobin 98.5 H ABG Sodium 130.9 L 131.0 L ABG Potassium 3.0 L 2.8 L ABG Glucose 241 H Carboxyhemoglobin Sodium Potassium Chloride Carbon Dioxide BUN Creatinine Glucose POC Glucose 222 H Calcium Phosphorus Ammonia Total Protein Albumin TSH Arterial Blood Glucose 241 H Arterial Blood Ionized Calcium 4.5 L Phenytoin Valproic Acid 01/18/21 01/18/21 01/18/21 04:16 06:20 10:20 WBC 14.1 H RBC Hgb 11.2 L Hct 34.5 L MCV 83 L MCH 27 L RDW 20.8 H Plt Count 116 L Lymph % (Auto) Lymph # (Auto) Seg Neutrophils % Seg Neutrophils # PT INR APTT ABG pH POC ABG pCO2 POC ABG pO2 ABG pO2 ABG Hemoglobin ABG Oxyhemoglobin ABG Sodium ABG Potassium ABG Glucose Carboxyhemoglobin Sodium 134 L Potassium 2.9 L* Chloride Carbon Dioxide 21 L BUN 60 H Creatinine 3.9 H Glucose POC Glucose 69 L Calcium Phosphorus 1.60 L D Ammonia Total Protein Albumin TSH Arterial Blood Glucose Arterial Blood Ionized Calcium Phenytoin Valproic Acid 01/18/21 01/18/21 01/18/21 11:29 15:30 17:23 WBC RBC Hgb Hct MCV MCH RDW Plt Count Lymph % (Auto) Lymph # (Auto) Seg Neutrophils % Seg Neutrophils # PT INR APTT ABG pH POC ABG pCO2 POC ABG pO2 ABG pO2 ABG Hemoglobin ABG Oxyhemoglobin ABG Sodium ABG Potassium ABG Glucose Carboxyhemoglobin Sodium Potassium 3.3 L Chloride Carbon Dioxide BUN 42 H Creatinine 3.1 H Glucose 190 H POC Glucose 128 H 167 H Calcium 8.2 L Phosphorus 1.10 L D Ammonia Total Protein Albumin TSH Arterial Blood Glucose Arterial Blood Ionized Calcium Phenytoin Valproic Acid 01/18/21 01/19/21 01/19/21 23:43 03:43 04:38 WBC RBC Hgb Hct MCV MCH RDW Plt Count Lymph % (Auto) Lymph # (Auto) Seg Neutrophils % Seg Neutrophils # PT INR APTT ABG pH 7.536 H POC ABG pCO2 27.0 L POC ABG pO2 165.8 H ABG pO2 ABG Hemoglobin 10.7 L ABG Oxyhemoglobin 98.4 H ABG Sodium 131.3 L ABG Potassium ABG Glucose 152 H Carboxyhemoglobin Sodium Potassium Chloride Carbon Dioxide BUN 55 H Creatinine 3.8 H Glucose 143 H POC Glucose 232 H Calcium Phosphorus 1.10 L Ammonia Total Protein Albumin TSH Arterial Blood Glucose 152 H Arterial Blood Ionized Calcium Phenytoin Valproic Acid 01/19/21 01/19/21 01/19/21 05:12 11:36 15:16 WBC RBC Hgb Hct MCV MCH RDW Plt Count Lymph % (Auto) Lymph # (Auto) Seg Neutrophils % Seg Neutrophils # PT INR APTT ABG pH POC ABG pCO2 POC ABG pO2 ABG pO2 ABG Hemoglobin ABG Oxyhemoglobin ABG Sodium ABG Potassium ABG Glucose Carboxyhemoglobin Sodium Potassium Chloride Carbon Dioxide BUN Creatinine Glucose POC Glucose 135 H 201 H Calcium Phosphorus 1.10 L Ammonia Total Protein Albumin TSH Arterial Blood Glucose Arterial Blood Ionized Calcium Phenytoin Valproic Acid 01/19/21 01/19/21 01/20/21 17:55 23:22 04:00 WBC RBC Hgb Hct MCV MCH RDW Plt Count Lymph % (Auto) Lymph # (Auto) Seg Neutrophils % Seg Neutrophils # PT INR APTT ABG pH 7.513 H POC ABG pCO2 POC ABG pO2 ABG pO2 ABG Hemoglobin 9.9 L ABG Oxyhemoglobin ABG Sodium 129.4 L ABG Potassium ABG Glucose 196 H Carboxyhemoglobin Sodium Potassium Chloride Carbon Dioxide BUN Creatinine Glucose POC Glucose 222 H 252 H Calcium Phosphorus Ammonia Total Protein Albumin TSH Arterial Blood Glucose 196 H Arterial Blood Ionized Calcium Phenytoin Valproic Acid 01/20/21 01/20/21 01/20/21 05:15 11:15 14:49 WBC 16.1 H RBC Hgb 9.9 L Hct 30.3 L MCV 82 L MCH 27 L RDW 20.7 H Plt Count 114 L Lymph % (Auto) Lymph # (Auto) Seg Neutrophils % Seg Neutrophils # PT INR APTT ABG pH POC ABG pCO2 POC ABG pO2 ABG pO2 ABG Hemoglobin ABG Oxyhemoglobin ABG Sodium ABG Potassium ABG Glucose Carboxyhemoglobin Sodium Potassium Chloride Carbon Dioxide BUN Creatinine Glucose POC Glucose 163 H 149 H Calcium Phosphorus Ammonia Total Protein Albumin TSH Arterial Blood Glucose Arterial Blood Ionized Calcium Phenytoin Valproic Acid 01/20/21 01/20/21 01/20/21 14:49 14:49 17:12 WBC RBC Hgb Hct MCV MCH RDW Plt Count Lymph % (Auto) Lymph # (Auto) Seg Neutrophils % Seg Neutrophils # PT INR APTT ABG pH POC ABG pCO2 POC ABG pO2 ABG pO2 ABG Hemoglobin ABG Oxyhemoglobin ABG Sodium ABG Potassium ABG Glucose Carboxyhemoglobin Sodium 133 L Potassium Chloride 95.8 L Carbon Dioxide BUN 48 H Creatinine 3.1 H Glucose 167 H POC Glucose 155 H Calcium Phosphorus 0.80 L* D Ammonia Total Protein Albumin TSH Arterial Blood Glucose Arterial Blood Ionized Calcium Phenytoin Valproic Acid 48.4 L 01/21/21 01/21/21 01/21/21 00:55 05:20 06:39 WBC 17.5 H RBC 3.62 L Hgb 9.6 L Hct 29.7 L MCV 82 L MCH 26 L RDW 21.4 H Plt Count 126 L Lymph % (Auto) Lymph # (Auto) Seg Neutrophils % Seg Neutrophils # PT INR APTT ABG pH POC ABG pCO2 POC ABG pO2 ABG pO2 ABG Hemoglobin ABG Oxyhemoglobin ABG Sodium ABG Potassium ABG Glucose Carboxyhemoglobin Sodium Potassium Chloride Carbon Dioxide BUN Creatinine Glucose POC Glucose 134 H 170 H Calcium Phosphorus Ammonia Total Protein Albumin TSH Arterial Blood Glucose Arterial Blood Ionized Calcium Phenytoin Valproic Acid 01/21/21 01/21/21 01/21/21 06:39 11:32 17:41 WBC RBC Hgb Hct MCV MCH RDW Plt Count Lymph % (Auto) Lymph # (Auto) Seg Neutrophils % Seg Neutrophils # PT INR APTT ABG pH POC ABG pCO2 POC ABG pO2 ABG pO2 ABG Hemoglobin ABG Oxyhemoglobin ABG Sodium ABG Potassium ABG Glucose Carboxyhemoglobin Sodium 133 L Potassium Chloride 95.9 L Carbon Dioxide BUN 56 H Creatinine 3.2 H Glucose 159 H POC Glucose 159 H 137 H Calcium Phosphorus 2.30 L D Ammonia Total Protein Albumin TSH Arterial Blood Glucose Arterial Blood Ionized Calcium Phenytoin Valproic Acid 01/21/21 01/22/21 01/22/21 23:48 04:00 04:20 WBC 14.0 H RBC 3.47 L Hgb 9.3 L Hct 28.6 L MCV 83 L MCH 27 L RDW 21.4 H Plt Count 129 L Lymph % (Auto) Lymph # (Auto) Seg Neutrophils % Seg Neutrophils # PT INR APTT ABG pH POC ABG pCO2 POC ABG pO2 ABG pO2 118.8 H ABG Hemoglobin 9.6 L ABG Oxyhemoglobin ABG Sodium ABG Potassium ABG Glucose Carboxyhemoglobin Sodium Potassium Chloride Carbon Dioxide BUN Creatinine Glucose POC Glucose 203 H Calcium Phosphorus Ammonia Total Protein Albumin TSH Arterial Blood Glucose Arterial Blood Ionized Calcium Phenytoin Valproic Acid 01/22/21 01/22/21 01/22/21 04:20 04:20 04:20 WBC RBC Hgb Hct MCV MCH RDW Plt Count Lymph % (Auto) Lymph # (Auto) Seg Neutrophils % Seg Neutrophils # PT INR APTT ABG pH POC ABG pCO2 POC ABG pO2 ABG pO2 ABG Hemoglobin ABG Oxyhemoglobin ABG Sodium ABG Potassium ABG Glucose Carboxyhemoglobin Sodium 131 L Potassium Chloride 92.9 L Carbon Dioxide 21 L BUN 69 H Creatinine 3.9 H Glucose 230 H POC Glucose Calcium 8.1 L Phosphorus Ammonia 19.0 L Total Protein 5.2 L Albumin 1.9 L TSH 4.730 H Arterial Blood Glucose Arterial Blood Ionized Calcium Phenytoin Valproic Acid 01/22/21 01/22/21 01/22/21 04:20 05:14 11:36 WBC RBC Hgb Hct MCV MCH RDW Plt Count Lymph % (Auto) Lymph # (Auto) Seg Neutrophils % Seg Neutrophils # PT 15.2 H INR 1.15 H APTT ABG pH POC ABG pCO2 POC ABG pO2 ABG pO2 ABG Hemoglobin ABG Oxyhemoglobin ABG Sodium ABG Potassium ABG Glucose Carboxyhemoglobin Sodium Potassium Chloride Carbon Dioxide BUN Creatinine Glucose POC Glucose 213 H 151 H Calcium Phosphorus Ammonia Total Protein Albumin TSH Arterial Blood Glucose Arterial Blood Ionized Calcium Phenytoin Valproic Acid 01/22/21 01/23/21 01/23/21 17:47 00:06 04:41 WBC 18.5 H RBC 3.43 L Hgb 9.0 L Hct 28.1 L MCV 82 L MCH 26 L RDW 21.6 H Plt Count Lymph % (Auto) Lymph # (Auto) Seg Neutrophils % Seg Neutrophils # PT INR APTT ABG pH POC ABG pCO2 POC ABG pO2 ABG pO2 ABG Hemoglobin ABG Oxyhemoglobin ABG Sodium ABG Potassium ABG Glucose Carboxyhemoglobin Sodium Potassium Chloride Carbon Dioxide BUN Creatinine Glucose POC Glucose 271 H 295 H Calcium Phosphorus Ammonia Total Protein Albumin TSH Arterial Blood Glucose Arterial Blood Ionized Calcium Phenytoin Valproic Acid 01/23/21 01/23/21 01/23/21 04:41 05:31 11:54 WBC RBC Hgb Hct MCV MCH RDW Plt Count Lymph % (Auto) Lymph # (Auto) Seg Neutrophils % Seg Neutrophils # PT INR APTT ABG pH POC ABG pCO2 POC ABG pO2 ABG pO2 ABG Hemoglobin ABG Oxyhemoglobin ABG Sodium ABG Potassium ABG Glucose Carboxyhemoglobin Sodium 135 L Potassium Chloride Carbon Dioxide BUN 53 H Creatinine 3.1 H Glucose 187 H POC Glucose 183 H 178 H Calcium Phosphorus Ammonia Total Protein Albumin TSH Arterial Blood Glucose Arterial Blood Ionized Calcium Phenytoin Valproic Acid 01/23/21 01/23/21 01/24/21 17:54 23:15 05:27 WBC RBC Hgb Hct MCV MCH RDW Plt Count Lymph % (Auto) Lymph # (Auto) Seg Neutrophils % Seg Neutrophils # PT INR APTT ABG pH POC ABG pCO2 POC ABG pO2 ABG pO2 ABG Hemoglobin ABG Oxyhemoglobin ABG Sodium ABG Potassium ABG Glucose Carboxyhemoglobin Sodium Potassium Chloride Carbon Dioxide BUN Creatinine Glucose POC Glucose 243 H 241 H 298 H Calcium Phosphorus Ammonia Total Protein Albumin TSH Arterial Blood Glucose Arterial Blood Ionized Calcium Phenytoin Valproic Acid 01/24/21 01/24/21 01/24/21 12:00 17:26 23:53 WBC RBC Hgb Hct MCV MCH RDW Plt Count Lymph % (Auto) Lymph # (Auto) Seg Neutrophils % Seg Neutrophils # PT INR APTT ABG pH POC ABG pCO2 POC ABG pO2 ABG pO2 ABG Hemoglobin ABG Oxyhemoglobin ABG Sodium ABG Potassium ABG Glucose Carboxyhemoglobin Sodium Potassium Chloride Carbon Dioxide BUN Creatinine Glucose POC Glucose 259 H 178 H 251 H Calcium Phosphorus Ammonia Total Protein Albumin TSH Arterial Blood Glucose Arterial Blood Ionized Calcium Phenytoin Valproic Acid 01/25/21 01/25/21 01/25/21 04:54 06:02 11:27 WBC RBC Hgb Hct MCV MCH RDW Plt Count Lymph % (Auto) Lymph # (Auto) Seg Neutrophils % Seg Neutrophils # PT INR APTT ABG pH POC ABG pCO2 POC ABG pO2 ABG pO2 ABG Hemoglobin ABG Oxyhemoglobin ABG Sodium ABG Potassium ABG Glucose Carboxyhemoglobin Sodium Potassium Chloride Carbon Dioxide BUN Creatinine Glucose POC Glucose 235 H 209 H Calcium Phosphorus 2.20 L Ammonia Total Protein Albumin TSH Arterial Blood Glucose Arterial Blood Ionized Calcium Phenytoin Valproic Acid 01/25/21 01/25/21 01/26/21 17:32 23:36 05:00 WBC RBC Hgb Hct MCV MCH RDW Plt Count Lymph % (Auto) Lymph # (Auto) Seg Neutrophils % Seg Neutrophils # PT INR APTT ABG pH 7.509 H POC ABG pCO2 POC ABG pO2 ABG pO2 ABG Hemoglobin 8.7 L ABG Oxyhemoglobin ABG Sodium 130.9 L ABG Potassium 5.5 H ABG Glucose 219 H Carboxyhemoglobin 1.7 H Sodium Potassium Chloride Carbon Dioxide BUN Creatinine Glucose POC Glucose 249 H 183 H Calcium Phosphorus Ammonia Total Protein Albumin TSH Arterial Blood Glucose 219 H Arterial Blood Ionized Calcium 4.3 L Phenytoin Valproic Acid 01/26/21 01/26/21 01/26/21 05:21 06:47 06:47 WBC 21.6 H RBC 3.18 L Hgb 8.4 L Hct 26.6 L MCV MCH 27 L RDW 21.8 H Plt Count Lymph % (Auto) Lymph # (Auto) Seg Neutrophils % Seg Neutrophils # PT INR APTT ABG pH POC ABG pCO2 POC ABG pO2 ABG pO2 ABG Hemoglobin ABG Oxyhemoglobin ABG Sodium ABG Potassium ABG Glucose Carboxyhemoglobin Sodium 133 L Potassium 5.6 H D Chloride 94.5 L Carbon Dioxide BUN 73 H Creatinine 3.6 H Glucose 245 H POC Glucose 179 H Calcium Phosphorus Ammonia Total Protein Albumin TSH Arterial Blood Glucose Arterial Blood Ionized Calcium Phenytoin Valproic Acid 01/26/21 01/26/21 01/26/21 11:36 17:41 23:12 WBC RBC Hgb Hct MCV MCH RDW Plt Count Lymph % (Auto) Lymph # (Auto) Seg Neutrophils % Seg Neutrophils # PT INR APTT ABG pH POC ABG pCO2 POC ABG pO2 ABG pO2 ABG Hemoglobin ABG Oxyhemoglobin ABG Sodium ABG Potassium ABG Glucose Carboxyhemoglobin Sodium Potassium Chloride Carbon Dioxide BUN Creatinine Glucose POC Glucose 235 H 174 H 178 H Calcium Phosphorus Ammonia Total Protein Albumin TSH Arterial Blood Glucose Arterial Blood Ionized Calcium Phenytoin Valproic Acid 01/27/21 01/27/21 01/27/21 05:26 11:43 17:31 WBC RBC Hgb Hct MCV MCH RDW Plt Count Lymph % (Auto) Lymph # (Auto) Seg Neutrophils % Seg Neutrophils # PT INR APTT ABG pH POC ABG pCO2 POC ABG pO2 ABG pO2 ABG Hemoglobin ABG Oxyhemoglobin ABG Sodium ABG Potassium ABG Glucose Carboxyhemoglobin Sodium Potassium Chloride Carbon Dioxide BUN Creatinine Glucose POC Glucose 179 H 207 H 157 H Calcium Phosphorus Ammonia Total Protein Albumin TSH Arterial Blood Glucose Arterial Blood Ionized Calcium Phenytoin Valproic Acid 01/27/21 01/27/21 01/28/21 17:45 23:28 05:15 WBC RBC Hgb Hct MCV MCH RDW Plt Count Lymph % (Auto) Lymph # (Auto) Seg Neutrophils % Seg Neutrophils # PT INR APTT ABG pH POC ABG pCO2 POC ABG pO2 ABG pO2 ABG Hemoglobin ABG Oxyhemoglobin ABG Sodium ABG Potassium ABG Glucose Carboxyhemoglobin Sodium Potassium Chloride Carbon Dioxide BUN Creatinine Glucose POC Glucose 149 H 209 H Calcium Phosphorus 2.30 L Ammonia Total Protein Albumin TSH Arterial Blood Glucose Arterial Blood Ionized Calcium Phenytoin Valproic Acid 01/28/21 01/28/21 01/28/21 05:17 05:18 11:28 WBC RBC Hgb Hct MCV MCH RDW Plt Count Lymph % (Auto) Lymph # (Auto) Seg Neutrophils % Seg Neutrophils # PT INR APTT ABG pH POC ABG pCO2 POC ABG pO2 ABG pO2 ABG Hemoglobin ABG Oxyhemoglobin ABG Sodium ABG Potassium ABG Glucose Carboxyhemoglobin Sodium 131 L Potassium 5.6 H Chloride 92.0 L Carbon Dioxide BUN 58 H Creatinine 2.8 H Glucose 127 H POC Glucose 129 H 158 H Calcium 7.8 L Phosphorus Ammonia Total Protein Albumin TSH Arterial Blood Glucose Arterial Blood Ionized Calcium Phenytoin Valproic Acid 01/28/21 01/28/21 01/28/21 12:58 17:56 23:49 WBC RBC Hgb Hct MCV MCH RDW Plt Count Lymph % (Auto) Lymph # (Auto) Seg Neutrophils % Seg Neutrophils # PT INR APTT 38.7 H ABG pH POC ABG pCO2 POC ABG pO2 ABG pO2 ABG Hemoglobin ABG Oxyhemoglobin ABG Sodium ABG Potassium ABG Glucose Carboxyhemoglobin Sodium Potassium Chloride Carbon Dioxide BUN Creatinine Glucose POC Glucose 188 H 140 H Calcium Phosphorus Ammonia Total Protein Albumin TSH Arterial Blood Glucose Arterial Blood Ionized Calcium Phenytoin Valproic Acid 01/29/21 01/29/21 01/29/21 05:08 09:35 09:35 WBC 19.0 H RBC 2.79 L Hgb 7.5 L Hct 23.0 L MCV 83 L MCH 27 L RDW 22.9 H Plt Count Lymph % (Auto) Lymph # (Auto) Seg Neutrophils % Seg Neutrophils # PT 15.3 H INR 1.15 H APTT ABG pH POC ABG pCO2 POC ABG pO2 ABG pO2 ABG Hemoglobin ABG Oxyhemoglobin ABG Sodium ABG Potassium ABG Glucose Carboxyhemoglobin Sodium Potassium Chloride Carbon Dioxide BUN Creatinine Glucose POC Glucose 107 H Calcium Phosphorus Ammonia Total Protein Albumin TSH Arterial Blood Glucose Arterial Blood Ionized Calcium Phenytoin Valproic Acid
[2021-01-29] MEDS: DOXAZOSIN 1 MG TAB PO SCH (10:00)
[2021-01-29 10:20] LABS: Calcium 8.6 mg/dL (8.4-10.2)
[2021-01-29] MEDS: LANSOPRAZOLE 30 MG SOLUTAB FEEDTUBE SCH ×2 (10:32→22:10)
[2021-01-29] MEDS: CALCITRIOL 0.5 MCG CAP PO SCH (10:33)
[2021-01-29] MEDS: TIMOLOL 0.5% OPHTH SOLN 5 ML OU SCH (11:00)
--- NOTE | 2021-01-29 12:16 | Operative Report ---
Operative Report Operative Report: Date of surgery: 01/29/2021 Preoperative diagnosis: Vent dependence Postoperative diagnosis: Same as above Procedure: Percutaneous tracheostomy Surgeon: Maura Holman DO Anesthesia: Geta, local Findings: Good placement of tracheostomy as visualized by fiberoptic bronchoscopy EBL: 10 cc Specimen: None Complications: None Disposition: Stable to ICU HPI and indication: Patient is a 81-year-old male who presented to hospital and required intubation. Patient has failed daily PSV trials and unable to weaned from vent. 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 All risk, benefits, alternatives to the procedure were discussed with the patient's and daughter. All questions answered and consent obtained for percutaneous tracheostomy, possible open, fiberoptic bronchoscopy Procedure in detail: The patient was identified in the ICU and brought down to the operating room and positioned in supine position in the hospital bed. Consent was verified on the chart timeout was performed. Anesthesia was administered. A shoulder roll was placed, with the patient's neck mildly hyperextended. The neck was prepped and draped in usual sterile fashion. Dr. Chavez performed fiberoptic bronchoscopy throughout the entire procedure. The fiberoptic bronchoscope was inserted through the endotracheal tube via the adapter and the trachea examined. The trachea was unremarkable and the ET tube was approximately 5 cm from patricia at 24 cm at the lip. 1% lidocaine was infiltrated into the skin and subcutaneous tissue approximately 2 fingerbreadths above the sternal notch. A 2 cm incision was made in a horizontal fashion using a 15 blade. Using a hemostat the soft tissues were bluntly dissected until the trachea was encountered. The ET tube was then pulled back slowly to 17 cm. Using the introducer needle, the trachea was entered under direct visualization. The wire was passed down the trachea towards the patricia. Introducer needle was then removed. The trachea was then serially dilated, after which a 8 [place] Sh[place] tracheostomy tube was inserted. The balloon was inflated, patient placed back on ventilator. There was end-tidal CO2 detected and tidal volumes assessed which were satisfactory. The bronchoscope was then placed through the tracheostomy and showed good positioning of the tracheostomy approximately 4 to 5 cm above the patricia and no bleeding. A drain sponge was placed between the skin and tracheostomy. The tracheostomy was secured to the patient's neck using a tracheostomy strap. A post op chest x-ray is pending. The patient tolerated the procedure well. All sharps were disposed of appropriately. The patient was taken back to the ICU in stable condition.
[2021-01-29] MEDS ORDERED: ROCURONIUM 50 MG/5 ML INJ IV ONE (12:30)
--- NOTE | 2021-01-29 13:12 | XRay Report ---
CHEST 1 VIEW INDICATION: post op tracheostomy. COMPARISON: 01/22/2021 FINDINGS: Support devices: A tracheostomy has been placed since the previous exam which appears in good positio n. Right IJ permacath remains in good position. Heart: Within normal limits. Lungs/Pleura: No acute air space or interstitial disease. No pneumothorax. Additional findings: None. IMPRESSION: No acute findings. Signer Name: Krystian Manuel Jr, MD Signed: 01/29/2021 1:08 PM Workstation Name: [id number]
--- NOTE | 2021-01-29 13:49 | Post Anesthesia Evaluation ---
- Post Anesthesia Evaluation Patient Participated: No Airway Patent: Yes Stable Respiratory Function: Yes Nausea/Vomiting: No Temp > 96.8F: Yes Pain Manageable: Yes Adequeate Hydration: Yes Anesthesia Complications: No Block Receding Appropriately: Not Applicable Patient on Ventilator: Yes
--- NOTE | 2021-01-29 14:02 | Operative Report ---
Operative Report Operative Report: Date:01/29/2021 Surgeon: Bertha Chavez MD Procedure:Fiberoptic bronchoscopy Anesthesia: GETA Indication: Patient is a 81 year old male. Patient intubated and sedated therefore unable to provided detail history. The patient has been unable to be weaned from the ventilator and therefore tracheostomy with assistance of fiberoptic bronchoscopy is indicated. All risks were discussed with the family, and consent obtained. Procedure in detail: The patient was identified in the hospital bed in the ICU and brought down to the OR. After anesthesia was induced, the fiberoptic bronchoscope was passed through the endotracheal tube using an adapter. The trachea and patricia were visualized, there was a normal appearance of the mucosa and no debris or fluid was seen. At this point, Dr. Holman who performed the tracheostomy portion of the procedure (please see separate operative note), asked for the endotracheal tube to be withdrawn slowly. The upper trachea was visualized and appeared normal. At this point, Dr. Holman placed the tracheostomy tube under direct visualization by fiberoptic bronchoscopy. Please see separate operative note for more details on Tracheostomy placement. Once the tracheostomy tube was placed, the bronchoscope was withdrawn from the endotracheal tube and placed through the tracheostomy tube. The tracheostomy tube appeared to be in good position approximately 4-5 cm above the patricia. The bronchoscope was then withdrawn. The procedure was terminated and the patient was returned to ICU in stable condition. Complication: none immediate
--- NOTE | 2021-01-29 14:10 | Progress Note ---
Assessment and Plan 1.ESRD: Patient is on maintenance hemodialysis three times a week, TTS schedule. Last outpatient HD 01/12/2021. Meds dosage based on GFR. Hemodialysis: 01/15, 01/16, 01/17(UF), 01/18, 01/22, 01/24, 01/26, 01/28. UF today due to volume overload. 2. FEN: Hyperkalemia, improved. Volume overload, UF with HD. Hyponatremia, improved, monitor. Monitor lytes and volume status. 3. Acute resp failure: Currently Trached, on vent. Extubated 01/17. Re-intubated 01/17. S/p Trach 01/29. 4. Shock: Off pressors. Monitor. 5. New onset of possible witnessed seizure during dialysis: CT brain remarkable for white matter changes. MRI brain: small SDH, chronic changes. On Keppra. Seizure precaution. Seen by Neuro. 6. Advanced dementia: CT white matter changes. 7. Failure to thrive: PEG tube. 8. Anemia, POA: Epogen with HD. 9. DM type 2. 10. Acute metabolic encephalopathy: Followed by Neuro. Subjective: Patient was seen and examined at the bedside. Examination: General appearance: well-developed, appears stated age, no distress, on vent, FiO2 25% HEENT: ATNC, pupils equal Neck: Trachea midline Respiratory: ctab Cardiology: regular, S1S2, no murmur Abdomen: soft, not tender, BS heard, Peg tube noted Integumentary: warm, dry, no obvious rash Neurologic: not responding Ext: dependent edema noted Hemodialysis catheter: R IJ tunnel catheter Subjective Date of service: 01/29/21 Principal diagnosis: witnessed seizure hx of ESRD ,hyponatremia Objective - Vital Signs Vital signs: Vital Signs - 12hr 01/29/21 01/29/21 01/29/21 02:30 03:00 03:21 Temperature 97.9 F Pulse Rate 101 H 100 H Pulse Rate [ From Monitor] Respiratory 21 18 Rate Blood Pressure 142/68 139/67 O2 Sat by Pulse 100 100 Oximetry 01/29/21 01/29/21 01/29/21 03:31 04:00 04:30 Temperature 97.9 F Pulse Rate 95 H 97 H 91 H Pulse Rate [ 98 H From Monitor] Respiratory 13 16 17 Rate Blood Pressure 121/56 119/60 123/64 O2 Sat by Pulse 100 100 100 Oximetry 01/29/21 01/29/21 01/29/21 05:00 05:30 05:47 Temperature Pulse Rate 95 H 93 H 89 Pulse Rate [ From Monitor] Respiratory 13 16 Rate Blood Pressure 116/61 137/90 128/65 O2 Sat by Pulse 100 100 100 Oximetry 01/29/21 01/29/21 01/29/21 06:00 06:30 07:00 Temperature Pulse Rate 90 91 H 88 Pulse Rate [ From Monitor] Respiratory 13 15 13 Rate Blood Pressure 139/63 133/63 139/61 O2 Sat by Pulse 100 100 100 Oximetry 01/29/21 01/29/21 01/29/21 07:30 07:59 08:00 Temperature 98 F Pulse Rate 88 90 91 H Pulse Rate [ From Monitor] Respiratory 14 14 Rate Blood Pressure 125/57 129/60 127/63 O2 Sat by Pulse 100 100 100 Oximetry 01/29/21 01/29/21 01/29/21 08:30 09:00 09:30 Temperature Pulse Rate 92 H 89 86 Pulse Rate [ From Monitor] Respiratory 15 17 11 L Rate Blood Pressure 135/67 125/64 119/58 O2 Sat by Pulse 100 100 100 Oximetry 01/29/21 01/29/21 01/29/21 10:00 10:30 10:33 Temperature Pulse Rate 83 84 88 Pulse Rate [ From Monitor] Respiratory 16 17 Rate Blood Pressure 119/55 126/66 O2 Sat by Pulse 100 100 100 Oximetry 01/29/21 11:00 Temperature 97.5 F L Pulse Rate 83 Pulse Rate [ From Monitor] Respiratory 30 H Rate Blood Pressure 135/71 O2 Sat by Pulse 100 Oximetry - Lab 01/29/21 09:35 01/29/21 09:35 Most recent lab results ABG pH 7.509 (7.320-7.450) H 01/26/21 05:00 ABG pCO2 39.5 mm Hg 01/22/21 04:00 ABG pO2 118.8 mm Hg (80.0-90.0) H 01/22/21 04:00 ABG HCO3 24.5 mmol/L (20.0-26.0) 01/22/21 04:00 ABG O2 Saturation 97.1 (0-100) 01/26/21 05:00 Calcium 8.6 mg/dL (8.4-10.2) 01/29/21 09:35 Phosphorus 2.30 mg/dL (2.5-4.5) L 01/28/21 05:15 Magnesium 2.00 mg/dL (1.7-2.3) 01/22/21 04:20 Medications & Allergies - Medications Allergies/Adverse Reactions: Allergies No Known Allergies Allergy (Verified 08/14/19 16:11) Home Medications: Home Medications Medication Instructions Recorded Confirmed Last Taken Type Alogliptin Benzoate [Alogliptin] 1 tab PO DAILY 10/02/20 01/23/21 Unknown History AtorvaSTATin [Lipitor] 40 mg PO QHS #30 10/11/20 01/23/21 Unknown Rx Doxazosin [Cardura] 4 mg PO QDAY #30 10/11/20 01/23/21 Unknown Rx Febuxostat 40 mg PO QDAY #30 10/11/20 01/23/21 Unknown Rx Ketotifen Fumarate 1 drop OU QDAY #1 bottle 10/11/20 01/23/21 Unknown Rx Lansoprazole Solutab [Prevacid 30 mg FEEDTUBE BID #60 tab.rapdis 10/11/20 01/23/21 Unknown Rx Solutab] Megestrol Acetate 40 mg PO QDAY #30 10/11/20 01/23/21 Unknown Rx Metoprolol [Lopressor TAB] 12.5 mg PO BID #60 tablet 10/11/20 01/23/21 Unknown Rx calcitrioL [Rocaltrol] 1 mcg PO QDAY #30 cap 10/11/20 01/23/21 Unknown Rx timoloL maleate [Timolol Maleate 1 drop OP BID #1 bottle 10/11/20 01/23/21 Unknown Rx 0.25%] Insulin Lispro [Humalog] 0 units SUB-Q QID 01/23/21 01/23/21 Unknown History Active Medications: Generic Name Dose Route Start Last Admin Trade Name Freq PRN Reason Stop Dose Admin Acetaminophen 650 mg 01/12/21 19:30 Acetaminophen 325 Mg Tab PO Q4H PRN Pain MILD(1-3)/Fever >100.5/ABEL Albuterol 2.5 mg 01/12/21 19:30 Albuterol 2.5 Mg/3 Ml Nebu IH Q4HRT PRN Shortness Of Breath Lipase/Protease/Amylase 1 each 01/13/21 10:11 01/27/21 09:43 Lipase 10,500/Protease 25,000/Amylase 43,750 (Units) Dr Silveira FEEDTUBE 1 each PRN PRN Administration For Clogged Feeding Tube Atorvastatin Calcium 40 mg 01/12/21 22:00 01/28/21 21:23 Atorvastatin 40 Mg Tab PO 40 mg QHS NOLAN Administration Calcitriol 1 mcg 01/13/21 10:00 01/28/21 09:51 Calcitriol 0.5 Mcg Cap PO 1 mcg QDAY NOLAN Administration Docusate Sodium 100 mg 01/17/21 09:00 Docusate Sodium 100 Mg/10 Ml Oral Liqd PO BID PRN Constipation Doxazosin Mesylate 2 mg 01/18/21 10:00 01/28/21 09:51 Doxazosin 1 Mg Tab PO 2 mg QDAY NOLAN Administration Heparin Sodium (Porcine) 2,000 unit 01/28/21 10:39 Heparin 10,000 Units/10 Ml Vial IV DIONNA PRN hemodialysis Hydralazine HCl 20 mg 01/28/21 11:27 Hydralazine 20 Mg/1 Ml Inj IV Q4HR PRN Hypertension Hydrophilic Ointment 1 applic 01/15/21 17:14 Lip Therapy Vaseline TP Q2HR PRN Dry Lips Sodium Chloride 100 mls @ 999 mls/hr 01/26/21 12:29 Nacl 0.9% IV DIONNA PRN Hypotension Dextrose/Sodium Chloride 1,000 mls @ 42 mls/hr 01/28/21 08:00 01/29/21 08:22 D5/0.45ns IV 42 mls/hr DIRECT NOLAN Administration Insulin Glargine 5 units 01/25/21 22:00 01/28/21 21:24 Insulin Glargine 100 Units/Ml SUB-Q 5 units QHS NOLAN Administration Insulin Human Lispro 0 unit 01/16/21 00:00 01/29/21 06:21 Insulin Lispro 100 Unit/Ml SUB-Q Not Given Q6HR [facility] Protocol Lansoprazole 30 mg 01/12/21 22:00 01/28/21 21:23 Lansoprazole 30 Mg Solutab FEEDTUBE 30 mg BID NOLAN Administration Levetiracetam 250 mg 01/23/21 22:00 01/28/21 21:22 Levetiracetam 500 Mg/5 Ml Oral Liqd PO 250 mg QHS NOLAN Administration Linagliptin 5 mg 01/13/21 11:00 01/28/21 08:09 Linagliptin 5 Mg Tab PO 5 mg QDDIAB NOLAN Administration Multi-Ingred Cream/Lotion/Oil/Oint 1 applic 01/15/21 17:14 Mineral Oil/Petrolatum, White Ophth Oint 3.5 Gm OU Q4HR PRN Dry Eye(s) Scopolamine 1 each 01/28/21 11:00 01/28/21 11:35 Scopolamine Transdermal Patch 72 Hr TD 1 each Q3D NOLAN Administration Senna 17.2 mg 01/25/21 10:00 01/29/21 02:20 Sennosides 8.6 Mg Tab PO Not Given Q8H NOLAN Simple Syrup 15 ml 01/13/21 10:11 01/18/21 06:54 Simple Syrup 15 Ml FEEDTUBE 15 ml PRN PRN Administration Hypoglycemia Simple Syrup 30 ml 01/13/21 10:11 Simple Syrup 15 Ml FEEDTUBE PRN PRN Hypoglycemia Sodium Bicarbonate 325 mg 01/13/21 10:11 01/27/21 09:43 Sodium Bicarbonate 325 Mg Tab FEEDTUBE 325 mg PRN PRN Administration For Clogged Feeding Tube Sodium Chloride 10 ml 01/12/21 22:00 01/28/21 21:23 Sodium Chloride 0.9% 10 Ml Flush Syringe IV 10 ml BID NOLAN Administration Timolol Maleate 1 drops 01/17/21 10:00 01/28/21 09:53 Timolol 0.5% Ophth Soln 5 Ml OU 1 drops QDAY NOLAN Administration
[2021-01-29] MEDS ORDERED: SODIUM CHLORIDE 0.9% 100 ML IV PRN (15:17)
[2021-01-29] MEDS: LINAGLIPTIN 5 MG TAB PO SCH (19:32)
[2021-01-29] MEDS: levETIRAcetam 500 MG/5 ML ORAL LIQD PO SCH (22:06)
[2021-01-29] MEDS: INSULIN GLARGINE 100 UNITS/ML SUB-Q SCH (22:06)
[2021-01-30] MEDS: INSULIN LISPRO 100 UNIT/ML SUB-Q SCH ×4 (00:18→13:10)
[2021-01-30] MEDS: SENNOSIDES 8.6 MG TAB PO SCH (03:54)
--- NOTE | 2021-01-30 05:06 | XRay Report ---
CHEST 1 VIEW 01/30/2021 3:54 AM INDICATION / CLINICAL INFORMATION: post trach. COMPARISON: One view of the chest from 01/29/2021 FINDINGS: SUPPORT DEVICES: Unchanged. HEART / MEDIASTINUM: No significant abnormality. LUNGS / PLEURA: No significant pulmonary abnormality. No significant pleural effusion. No pneumothora x. ADDITIONAL FINDINGS: No significant additional findings. IMPRESSION: 1. No acute abnormality of the chest. No significant interval changes. Signer Name: Octaviano Maurice MD Signed: 01/30/2021 5:01 AM Workstation Name: [id number]
[2021-01-30 05:32] LABS: Hematocrit 25.5 % (35.5-45.6); Hemoglobin 8.1 gm/dl (11.8-15.2); Mean Corpuscular HGB Conc 32 % (32-34); Mean Corpuscular Volume 85 fl (84-94); Platelet Count 241 K/mm3 (140-440); Red Blood Count 3.01 M/mm3 (3.65-5.03)
[2021-01-30 05:38] LABS: Red Cell Distribution Width 22.9 % (13.2-15.2)
[2021-01-30 05:52] LABS: Calcium 8.2 mg/dL (8.4-10.2)
--- NOTE | 2021-01-30 09:48 | Progress Note ---
History Interval history: trach yesterday LTAC placement fell through for they found pt does not have Medicare part B- see Case Management note Hospitalist Physical - Constitutional Vitals: Temp Pulse Resp BP Pulse Ox 98 F 84 18 127/55 100 01/30/21 07:54 01/30/21 07:45 01/30/21 07:45 01/30/21 07:45 01/30/21 07:45 General appearance: Present: no acute distress Results - Labs CBC & Chem 7: 01/30/21 04:54 01/30/21 04:54 Labs: Laboratory Last Values WBC 25.4 K/mm3 (4.5-11.0) H 01/30/21 04:54 RBC 3.01 M/mm3 (3.65-5.03) L 01/30/21 04:54 Hgb 8.1 gm/dl (11.8-15.2) L 01/30/21 04:54 Hct 25.5 % (35.5-45.6) L 01/30/21 04:54 MCV 85 fl (84-94) 01/30/21 04:54 MCH 27 pg (28-32) L 01/30/21 04:54 MCHC 32 % (32-34) 01/30/21 04:54 RDW 22.9 % (13.2-15.2) H 01/30/21 04:54 Plt Count 241 K/mm3 (140-440) 01/30/21 04:54 Lymph % (Auto) 6.3 % (13.4-35.0) L 01/15/21 05:22 [place] % (Auto) 5.4 % (0.0-7.3) 01/15/21 05:22 Eos % (Auto) 0.0 % (0.0-4.3) 01/15/21 05:22 Baso % (Auto) 0.1 % (0.0-1.8) 01/15/21 05:22 Lymph # (Auto) 0.7 K/mm3 (1.2-5.4) L 01/15/21 05:22 [place] # (Auto) 0.6 K/mm3 (0.0-0.8) 01/15/21 05:22 Eos # (Auto) 0.0 K/mm3 (0.0-0.4) 01/15/21 05:22 Baso # (Auto) 0.0 K/mm3 (0.0-0.1) 01/15/21 05:22 Seg Neutrophils % 88.2 % (40.0-70.0) H 01/15/21 05:22 Seg Neutrophils # 9.8 K/mm3 (1.8-7.7) H 01/15/21 05:22 PT 15.3 Sec. (12.2-14.9) H 01/29/21 09:35 INR 1.15 (0.87-1.13) H 01/29/21 09:35 APTT 38.7 Sec. (24.2-36.6) H 01/28/21 12:58 ABG pH 7.509 (7.320-7.450) H 01/26/21 05:00 POC ABG pCO2 35.8 mmHg (32.0-48.0) 01/26/21 05:00 ABG pCO2 39.5 mm Hg 01/22/21 04:00 POC ABG pO2 87.7 mmHg (83-108) 01/26/21 05:00 ABG pO2 118.8 mm Hg (80.0-90.0) H 01/22/21 04:00 POC ABG HCO3 27.9 01/26/21 05:00 ABG HCO3 24.5 mmol/L (20.0-26.0) 01/22/21 04:00 ABG O2 Saturation 97.1 (0-100) 01/26/21 05:00 ABG O2 Content 13.2 (0.0-44) 01/22/21 04:00 POC ABG Base Excess 4.6 01/26/21 05:00 ABG Base Excess -0.1 mmol/L (-2.0-3.0) 01/22/21 04:00 ABG Hemoglobin 8.7 (12.0-17.5) L 01/26/21 05:00 ABG Oxyhemoglobin 95.2 (94-98) 01/26/21 05:00 ABG Carboxyhemoglobin 1.5 % (0.0-5.0) 01/22/21 04:00 ABG Methemoglobin 0.3 (0.0-1.5) 01/26/21 05:00 ABG Sodium 130.9 mmol/L (136.0-145.0) L 01/26/21 05:00 ABG Potassium 5.5 mmol/L (3.40-4.50) H 01/26/21 05:00 ABG Chloride 98.0 mmol/L (98-107) 01/26/21 05:00 ABG Glucose 219 mg/dL (65-95) H 01/26/21 05:00 Oxyhemoglobin 96.5 % (95.0-99.0) 01/22/21 04:00 Carboxyhemoglobin 1.7 (0.5-1.5) H 01/26/21 05:00 FiO2 35 % 01/22/21 04:00 FiO2 % 25.0 01/26/21 05:00 Sodium 136 mmol/L (137-145) L 01/30/21 04:54 Potassium 3.4 mmol/L (3.6-5.0) L 01/30/21 04:54 Chloride 95.4 mmol/L (98-107) L 01/30/21 04:54 Carbon Dioxide 28 mmol/L (22-30) 01/30/21 04:54 Anion Gap 16 mmol/L 01/30/21 04:54 BUN 44 mg/dL (9-20) H 01/30/21 04:54 Creatinine 2.8 mg/dL (0.8-1.3) H 01/30/21 04:54 Estimated GFR 26 ml/min 01/30/21 04:54 BUN/Creatinine Ratio 16 % 01/30/21 04:54 Glucose 197 mg/dL (75-100) H 01/30/21 04:54 POC Glucose 209 mg/dL (70-105) H 01/30/21 05:28 Calcium 8.2 mg/dL (8.4-10.2) L 01/30/21 04:54 Phosphorus 4.10 mg/dL (2.5-4.5) 01/30/21 04:54 Magnesium 1.80 mg/dL (1.7-2.3) 01/30/21 04:54 Total Bilirubin 0.20 mg/dL (0.1-1.2) 01/22/21 04:20 Direct Bilirubin < 0.2 mg/dL (0-0.2) 01/12/21 14:36 Indirect Bilirubin 0.1 mg/dL 01/12/21 14:36 AST 37 units/L (5-40) 01/22/21 04:20 ALT 23 units/L (7-56) 01/22/21 04:20 Alkaline Phosphatase 108 units/L (35-129) 01/22/21 04:20 Ammonia 19.0 umol/L (25-60) L 01/22/21 04:20 Total Protein 5.2 g/dL (6.3-8.2) L 01/22/21 04:20 Albumin 1.9 g/dL (3.9-5) L 01/22/21 04:20 Albumin/Globulin Ratio 0.6 % 01/22/21 04:20 TSH 4.730 mlU/mL (0.270-4.200) H 01/22/21 04:20 Arterial Blood Glucose 219 mg/dL (65-95) H 01/26/21 05:00 Arterial Blood Ionized Calcium 4.3 mg/dL (4.6-5.3) L 01/26/21 05:00 Nasal Screen MRSA (PCR) Positive (Negative) 01/13/21 Unknown Urine Opiates Screen Negative 01/18/21 14:25 Urine Methadone Screen Negative 01/18/21 14:25 Ur Barbiturates Screen Negative 01/18/21 14:25 Phenytoin 6.5 ug/mL (10.0-20.0) L 01/16/21 09:15 Valproic Acid 48.4 ug/mL (50-100) L 01/20/21 14:49 Ur Phencyclidine Scrn Negative 01/18/21 14:25 Ur Amphetamines Screen Negative 01/18/21 14:25 U Benzodiazepines Scrn Presumptive positive 01/18/21 14:25 Urine Cocaine Screen Negative 01/18/21 14:25 U Marijuana (THC) Screen Negative 01/18/21 14:25 Drugs of Abuse Note Disclamer 01/18/21 14:25 Coronavirus (PCR) Negative (Negative) 01/15/21 08:00 Hepatitis A IgM Ab Non-reactive (NonReactive) 01/15/21 09:15 Hep Bs Antigen Non-reactive (Negative) 01/15/21 09:15 Hep B Core IgM Ab Non-reactive (NonReactive) 01/15/21 09:15 Hepatitis C Antibody Non-reactive (NonReactive) 01/15/21 09:15 Brewre/IV: Voiding Method Incontinent Active Medications - Current Medications Current Medications: Generic Name Dose Route Start Last Admin Trade Name Freq PRN Reason Stop Dose Admin Acetaminophen 650 mg 01/12/21 19:30 Acetaminophen 325 Mg Tab PO Q4H PRN Pain MILD(1-3)/Fever >100.5/ABEL Albuterol 2.5 mg 01/12/21 19:30 Albuterol 2.5 Mg/3 Ml Nebu IH Q4HRT PRN Shortness Of Breath Lipase/Protease/Amylase 1 each 01/13/21 10:11 01/27/21 09:43 Lipase 10,500/Protease 25,000/Amylase 43,750 (Units) Dr Silveira FEEDTUBE 1 each PRN PRN Administration For Clogged Feeding Tube Atorvastatin Calcium 40 mg 01/12/21 22:00 01/29/21 22:07 Atorvastatin 40 Mg Tab PO 40 mg QHS NOLAN Administration Calcitriol 1 mcg 01/13/21 10:00 01/29/21 10:33 Calcitriol 0.5 Mcg Cap PO Not Given QDAY NOLAN Docusate Sodium 100 mg 01/17/21 09:00 Docusate Sodium 100 Mg/10 Ml Oral Liqd PO BID PRN Constipation Doxazosin Mesylate 2 mg 01/18/21 10:00 01/29/21 10:00 Doxazosin 1 Mg Tab PO Not Given QDAY NOLAN Hydralazine HCl 20 mg 01/28/21 11:27 Hydralazine 20 Mg/1 Ml Inj IV Q4HR PRN Hypertension Hydrophilic Ointment 1 applic 01/15/21 17:14 Lip Therapy Vaseline TP Q2HR PRN Dry Lips Sodium Chloride 100 mls @ 999 mls/hr 01/26/21 12:29 Nacl 0.9% IV DIONNA PRN Hypotension Insulin Glargine 5 units 01/25/21 22:00 01/29/21 22:06 Insulin Glargine 100 Units/Ml SUB-Q 5 units QHS [facility] Administration Insulin Human Lispro 0 unit 01/16/21 00:00 01/30/21 06:00 Insulin Lispro 100 Unit/Ml SUB-Q 4 unit Q6HR NOLAN Administration Protocol Lansoprazole 30 mg 01/12/21 22:00 01/29/21 22:10 Lansoprazole 30 Mg Solutab FEEDTUBE 30 mg BID NOLAN Administration Levetiracetam 250 mg 01/23/21 22:00 01/29/21 22:06 Levetiracetam 500 Mg/5 Ml Oral Liqd PO 250 mg QHS NOLAN Administration Linagliptin 5 mg 01/13/21 11:00 01/29/21 19:32 Linagliptin 5 Mg Tab PO Not Given QDDIAB NOLAN Multi-Ingred Cream/Lotion/Oil/Oint 1 applic 01/15/21 17:14 Mineral Oil/Petrolatum, White Ophth Oint 3.5 Gm OU Q4HR PRN Dry Eye(s) Scopolamine 1 each 01/28/21 11:00 01/28/21 11:35 Scopolamine Transdermal Patch 72 Hr TD 1 each Q3D NOLAN Administration Senna 17.2 mg 01/25/21 10:00 01/30/21 03:54 Sennosides 8.6 Mg Tab PO Not Given Q8H NOLAN Simple Syrup 15 ml 01/13/21 10:11 01/18/21 06:54 Simple Syrup 15 Ml FEEDTUBE 15 ml PRN PRN Administration Hypoglycemia Simple Syrup 30 ml 01/13/21 10:11 Simple Syrup 15 Ml FEEDTUBE PRN PRN Hypoglycemia Sodium Bicarbonate 325 mg 01/13/21 10:11 01/27/21 09:43 Sodium Bicarbonate 325 Mg Tab FEEDTUBE 325 mg PRN PRN Administration For Clogged Feeding Tube Sodium Chloride 10 ml 01/12/21 22:00 01/29/21 22:07 Sodium Chloride 0.9% 10 Ml Flush Syringe IV 10 ml BID NOLAN Administration Timolol Maleate 1 drops 01/17/21 10:00 01/29/21 11:00 Timolol 0.5% Ophth Soln 5 Ml OU 1 drops QDAY NOLAN Administration Nutrition/Malnutrition Assess - Dietary Evaluation Nutrition/Malnutrition Findings: Nutrition Notes Start: 01/13/21 10:03 Freq: Status: Active Protocol: Document 01/29/21 11:34 CW (Rec: 01/29/21 11:43 CW [id number]) Nutrition Notes Initial or Follow up Reassessment Current Diagnosis CKD (stage V CKD),Diabetes, Hypertension Other Pertinent Diagnosis Chronic seizure d/o Current Diet TF - Osmolite 1.5 at 50ml/hr Labs/Tests BUN 35 Cr 2.3 phos 2.7 (01/28) Pertinent Medications D5 1/2 NS at 42 ml/hr Lantus Height 5 ft 9 in Weight 56.1 kg [place] Body Weight (kg) 72.72 BMI 18.2 Weight Status Underweight Subjective/Other Information F/U for TF tolerance. TF on hold today d/t trach placement . Prior to hold, TF ran at goal and was well tolerated. Addendum at 1438. Consult for TF write manage. recommend restart previous TF order. Percent of energy/protein needs met: 100%/100% Burn Absent Trauma Absent Difficulty In Swallowing,Chewing Current % PO Negligible Minimum of two criteria No #2 Nutrition Diagnosis Increased nutrient needs ( specify in comment below) Diagnosis Progress(for reassessment Continues documentation) #1 Nutrition Diagnosis Inadequate oral intake Diagnosis Progress(for reassessment Continues documentation) Is patient on ventilator? Yes Is Patient Ambulatory and/or Out of Bed No REE-([place] [place]-confined to bed) 1502.940 Kcal/Kg value to use for calculation 35 Approximate Energy Requirements Using 1964 kcal/Kg Calculation Used for Recommendations Kcal/kg Additional Notes Pro needs >1.2g/kg: >67g/day Fluid needs 1-1.5L/day Nutrition Intervention Change Diet Order: Continue TF regimen Nutrition Support: Osmolite 1.5 at 50ml/hr with 150ml water flush q4h. Provides 2200mg K, 1200mg Phos , 1680mg Na. Kcal 1,800 Protein (gm) 75 Carbohydrates (gm) 244 Fat (gm) 59 Fluid (mL) 914 Goal #1 TF tolerance Goal #2 Meet 100 % of EER via TF Goal #3 wt gain/maintanence Goal #4 Wound healing Anticipated Discharge Needs: Osmolite 1.5 at 50ml/hr with 150ml water flush q4h. Follow-Up By: 02/01/21 Additional Comments F/U for TF tolerance - Attestation Statement I have reviewed and agreed w/ Malnutrition eval & tx plan: Yes
[2021-01-30] MEDS ORDERED: POTASSIUM CHLORIDE 20 MEQ PACKET FEEDTUBE ONE (10:00)
[2021-01-30] MEDS ORDERED: MAGNESIUM SULFATE 2 GM/50 ML BAG IV ONE (10:00)
--- NOTE | 2021-01-30 10:19 | Discharge Summary ---
Providers - Providers Date of Admission: 01/14/21 09:13 Date of discharge: 01/30/21 Attending physician: MARLINE SHERWOOD MD 01/12/21 20:41 Consult to Physician [CONS] Routine Comment: Consulting Provider: KEVIN CHACON Physician Instructions: Reason For Exam: esrd 01/13/21 07:25 Consult to Dietitian/Nutrition [CONS] Routine Physician Instructions: Reason For Exam: Reason for Consult: Write/Manage Tube Feeding 01/13/21 09:16 Consult to Physician [CONS] Routine Comment: Consulting Provider: PINKY HOLLINGSWORTH Physician Instructions: Reason For Exam: new sz 01/14/21 08:00 Consult to Physician [CONS] Routine Comment: Consulting Provider: PINKY HOLLINGSWORTH Physician Instructions: Reason For Exam: new sz 01/15/21 14:49 Consult to Physician [CONS] Routine Comment: dr. mancini spoke to dr. carreon/ cele Consulting Provider: SHERRIE CARREON Physician Instructions: Reason For Exam: Seizure disorder 01/15/21 18:50 Midline [Consult to PICC Line RN] [CONS] Routine Reason For Exam: pt needs midline, dialysis pt Type Line:: Midline 01/21/21 11:54 Consult to Dietitian/Nutrition [CONS] Routine Physician Instructions: d/c Nepro & change to alt. tube feeding option Reason For Exam: Reason for Consult: Write/Manage Tube Feeding 01/24/21 10:44 Consult to Physician [CONS] Routine Comment: called office/ cele Consulting Provider: FRANCISCO SIDDIQUI Physician Instructions: Reason For Exam: Trach 01/24/21 11:25 Consult to Physician [CONS] Routine Comment: Consulting Provider: NATHAN OROURKE Physician Instructions: Reason For Exam: afib 01/29/21 14:29 Consult to Dietitian/Nutrition [CONS] Routine Physician Instructions: Assess nutrtn needs, initiate, modify, manage TF Reason For Exam: Reason for Consult: Write/Manage Tube Feeding Reason for Consult: Write/Manage Tube Feeding Primary care physician: BAND NAILER Hospitalization Reason for admission: repiratory failure Condition: Stable Procedures: trach no 8 [facility] 01-29 Hospital course: History Interval history: This 80-year-old male who is a resident of a group home facility with ESRD on HD Thursday, , Thursday), hyperlipidemia, hypertension, vascular dementia, cerebral sclerosis presents to the emergency department after suspected cardiac arrest and initiation of ACLS at the dialysis center 01/12/2021 however upon EMS arrival patient was noted to be actively seizing and chest compressions were discontinued. Upon arrival to the emergency department patient was found to have new onset seizure disorder, acidosis. Nephrology was consulted for ESRD. Patient was initially admitted to the telemetry floor under observation. 01/13/2021. Seizure precautions. Continue IV Keppra and await neurology evaluation. Check EEG and MRI. CT scan negative. Continue hemodialysis per nephrology recommendations. 01/14/2021. Patient is somnolent and lethargic. However, no new seizure activity noted. CT brain is remarkable for white matter changes. Continue seizure precautions. Follow-up EEG and MRI brain. Neurology decrease Keppra to 250 mg twice daily. Ativan as needed for seizure. Continue hemodialysis per nephrology recommendations. 01/15/2021: There is no overt seizure activity, however patient continues to be nonverbal. Patient seen after dialysis. Patient is not responsive to any verbal cues. Patient is moaning. 01/16: Patient had EEG today and was noted to be having seizure activity on 2 mg of Versed and this was uptitrated to 3 mg Versed. Neurology has been informed. Hypokalemia and hypophosphatemia addressed. Likely HD tomorrow. 01/17: Repeat EEG completed today. Severe hypophosphatemia noted today, repleted with IV phos. HD scheduled today. 01/18: Repeat EEG today per neuro, HD per nephro. Hypokalemia today to 2.9 and hypophosphatemia to 1.6, patient received 40 M EQ of KCl, PhosNak for 1 day. Will obtain pm labs. Pateint is less responsive today but Neuro does not think he had another seizure. Thrombocytopenia, will trend CBC. Patient became hypoxic towards the end of dialysis and failed BiPAP therapy and had to be intubated for hypoxia. 01/19: UDS shows presumptive benzo, HD today per nephro, Phos remains low but still has not completed supplementation. Nephro suggests flumazenil. 01/20: On CMV tidal volume 550, rate of 18, PEEP of 6 on 45% FiO2, patient has a better physical exam with neurology this morning. AM labs pending. 01/20 no acute events overnight 01/21 noted to be in afib this AM 01/22. Pulmonary considering extubation. However patient failed PSV trials. 01/23/2021. Pulmonary had a long discussion with family regarding tracheostomy and vent weaning. Patient continued on mechanical ventilation. Continue Keppra/AEDs. No new seizure activity 01/24/2021. Patient remains on mechanical ventilation with PSV/CPAP mode, FiO2 35%, CPAP 6, pressure support 15. Pulmonary consult surgery for tracheostomy. Continue Keppra and seizure precautions. Patient currently with A. fib but rate controlled. Consult cardiology for further evaluation. 01/28 no acute events overnight 01/29 no acute events overnight no 8 shiley trach 01/30 no acute events overnight 1530 transfer today HD for 2.5 L Neuro: New onset seizure disorder vascular dementia chronic SDH cerebral atherosclerosis frail debilitated elderly metabolic encephalopathy Neurology consulted, appreciate recommendations CT of the brain noted, no signs of acute infarct MRI showing subacute to chronic subdural hematoma. 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 -on keppra with no further seizures -01/14 EEG is significantly abnormal, diffuse background slowing in 3-4 Hz, patient had a vertex waves and sleep spindles noted bilaterally and centrally, 2 events of facial twitching with associated generalized tonic/clonic activities, lasting for at least 15 seconds each followed by suppressions, findings suggestive of encephalopathic process and/or higher tendency of possible focal seizures with generalization, possibility of source of blood loss cannot be totally excluded -01/15 EEG shows burst suppression pattern, intermittent sharp electric activity is noted throughout the recording, pronounced in the right frontal region, findings consistent with generalized seizure activity -01/16 EEG shows findings of generalized burst suppression as well as recurrent triphasic waves sinuses Rocephin for the process, and her drug effect, reports after stage cannot be excluded, possibility of toxic metabolic and/or hepatic and/or renal insufficiency cannot be excluded -01/17 EEG shows significant improvement previous recording, no epileptiform discharges noted, no runs of sharp looking activity is appreciated, intermittent triphasic waves noted mostly bifrontally and improvement in the background activity to 4-6 Hz noted throughout the recording, concerning suggestive of mild encephalopathic process and/or postictal state of possibility of flexor metabolic etiology cannot be totally excluded -01/18 EEG interpreted as mildly encephalopathic process with background 4-5 Hz noted throughout the recording with triphasic waves noted occasionally and vertex waves centrally more pronounced on the left side, no epileptiform discha rge appreciated, suggestive of possible toxic metabolic and/or drug effect, possibility of postictal state cannot be totally excluded -Aspiration and seizures precautions -PERRL; opens eyes, tracking me; will turn head but squeeze hands for me pt profoundly weak -will need aggressive PT/OT PRN pain meds home timolol no mind altering meds such as narcotics that would complicate neuro exam family updated on plan of care and they are discussing goals of care case management following case management following Cardio: History of hypertension afib CVR -- resolved SR with WAP cards has seen patient and sign off; call PRN no pressors statin holding asa due to SDH Resp: Acute hypoxic respiratory failure requiring trach -Intubated 01/15 for possible status epilepticus however patient was extubated on 01/17 and had to be reintubated on 01/17 for hypoxia -Wean mechanical ventilation as tolerated -6-.25 has failed PS trials with apnea -VAP bundle -SPO2 monitoring per protocol -Serial ABGs and CXR -nebs prn -chest xray post trach noted -scopolamine for secretions - 01-29 no 8 shiley placed GI malnutriton; Failure to thrive Chronic PEG tube -Tolerating TF -nutrition following bowel reg PPI End-stage renal disease on HD; hypoMg and hypoK; volume overload Nephrology following Dialysis per renal team -HD 01/29 for 2.5 L -Avoid nephrotoxic medications -resume home renal meds when appropriate -follow and replace electrolytes as needed K and Mg replaced this AM oliguria no [place]; requiring bladder scan and PRN straight caths home doxasosin Heme: a/c anemia Anemia of chronic disease -Admit H/H 12. -Transfuse for hemoglobin less than 7 -epo for chronic anemia -Hold anticoagulation in setting of chronic SDH VTE- no AC given SDH ID: leukocytosis likely reactive -01/13 nares: MRSA positive -01/15 tracheal aspirate with gram-negative rods, mod growth-- pseudomonas completed treatment -if pt spikes fever- reculture and consider antibiotics -PRN tylenol for fever -persistent leukocytosis with no fever -skin care per RN Endo- DM with hyperglycemia monitor blood glucose avoid hypoglycemia BG [id number] home linagliptin, lispro, tradjenta The high probability of a clinically significant, sudden or life threatening deterioration of the [respiratory, neurological] system(s) required my full and direct attention, intervention and personal management. The aggregate critical care time was [60] minutes. This time is in addition to time spent performing reported procedures but includes the following: [x] Data Review and interpretation [x] Patient assessment and monitoring of vital signs [x] Documentation [x] Medication orders and management Disposition: [id number] ANOTHER TYPE HLTHCARE Final Discharge Diagnosis (Prints w/discharge instructions): respiratory failure; AMS; ESRD on HD; HTN; malnutrition; anemia; DM Time spent for discharge: 60 Core Measure Documentation - Palliative Care Palliative Care/ Comfort Measures: Not Applicable - Core Measures Any of the following diagnoses?: none - VTE Discharge Requirements Deep Vein Thrombosis/Pulmonary Embolism Present on Admission: No Has pt received <5 days of overlap therapy or INR<2.0: No Anticoagulant overlap therapy prescribed at discharge: No Contraindication No Overlap Therapy order at DC: Medical Contraindication - Acute [place] Discharge Requirements Aspirin at discharge: No Reason for no aspirin on DC: Medical contraindication JORGE A/ARB for LVSD if EF <40%: No Reason for no JORGE A/ARB: Medical contraindication Beta andrea at discharge: No Reason for no beta andrea on DC: Medical contraindication Statin for LDL = or >100 mg/dl on DC: Yes - Heart Failure Discharge Requirements JORGE A/ARB for LVSD if EF <40%: No Reason for no JORGE A/ARB: Medical contraindication Beta andrea at discharge: No Reason for no beta andrea on DC: Medical contraindication - Stroke Discharge Requirements Statin for LDL = or >70 mg/dl on DC: Yes Anticoag for atrial fib/atrial flutter: Not Applicable Antithrombotic for ischemic stroke: No Reason for no antithrombotic on DC: Medical Contraindication (sdh) Exam - Constitutional Vitals: Temp Pulse Resp BP Pulse Ox 98 F 84 18 127/55 100 01/30/21 07:54 01/30/21 07:45 01/30/21 07:45 01/30/21 07:45 01/30/21 09:45 General appearance: Present: no acute distress - EENT Eyes: Present: PERRL ENT: clear oral mucosa - Neck Neck: Present: supple - Respiratory Respiratory effort: normal - Cardiovascular Heart Sounds: Present: S1 & S2 - Extremities Extremities: no ischemia Peripheral Pulses: within normal limits - Abdominal General gastrointestinal: Present: deferred Male genitourinary: Present: normal - Rectal Rectal Exam: deferred - Integumentary Integumentary: Present: clear, warm, dry - Musculoskeletal Musculoskeletal: other - Psychiatric Psychiatric: other - Neurologic Neurologic: other - Allied Health Allied health notes reviewed: nursing, social work, case management Plan Activity: advance as tolerated Weight Bearing Status: Weight Bear as Tolerated Diet: advance as tolerated Care Plan Goals: continue goals of care discussions with family Follow up with: PRIMARY CARE, [Primary Care Provider] - 3-5 Days
--- NOTE | 2021-01-30 10:59 | Progress Note ---
Assessment and Plan 80 y/o with chronic seizure disorder, ESRD, HTN admitted with status epilepticus, requiring intubation for burst suppression. 01/30/21: LTACH today. 01/29/21: Trach today. LTACH tomorrow. Continue supportive measures. Continues to fail PSV trials daily. 01/28/21: CM to follow up with today in regards to final decision. Patient is tentatively scheduled for surgery tomorrow. Reached out to renal to ask them to dialyze today to help with fluid and electrolytes so that there would be no issues or interruptions for tomorrow. Continues to fail PSV with episodes of apnea. Follow up any new surgery recs for today. Did order coags. Poor prognosis given lack of mental recovery. This was discussed with the family at length. 01/25/21: Appreciate surgery eval on yesterday. Await anesthesia eval and discussion with family. Will restart tube feeds, add bowel regimen and give laxative today. Failed PSV again today as he was having periods of apnea. Guarded to poor prognosis. 01/24/21: Consult Dr. Guerrero for trach, patient already has peg. Continue supportive measures. Guarded to poor prognosis. 01/23/21: Long discussion with family over the phone at bedside. They had several questions about trach and weaning. Answered all questions as best as possible. Family going to discuss again today and will let us known tomorrow. Continue supportive measures. Guarded to poor prognosis. 01/22/21: Will discuss on rounds today the possibility of cutting back more on anti-epileptic meds to see if this helps with his mental state. Will reach out to family today to discuss next options and goals of care. He is currently not a candidate for extubation and may need trach and peg. Will call with CM. Continue daily PSV trials. 01/21/21: FiO2 now down to 30%. RT to attempt PSV today to see how patient tolerates. Not a candidate for extubation given his current mental state. Neuro did decrease meds more on yesterday Keppra daily and BID Valproic Acid. Will call family to update on current level of care. Overall prognosis remains guarded to poor. Will get Head CT today to rule out any new areas of ischemia or bleeding. 01/20/21: FiO2 stable on 45%. Hold on repeat Imaging for now. Will hold on F lumazenil therapy given his prior history of seizure. May need more HD tomorrow. Spoke with Daughter and over the phone to update and they asked me to call them again tomorrow. Will tell them that visiting hours are present if they choose to come. Guarded prognosis. 01/19/21: Dropped FiO2 to 45%. Await neurology eval today but need to consider repeat imaging of head as I have not explanation as to why patient is not responsive. Patient does not make any urine so not able to send UDS. Had HD on yesterday so next one would likely be Thursday. Renal to address electrolytes. Very very guarded prognosis. 01/18/21: EEG not officially read, but prelim is negative for seizures, just di ffuse slowing. ABG is stable, not hypercapnic. Will send UDS to see if benzos are still in system. spoke with renal who will do HD today and manage electrolytes. DId order mag level given low levels of potassium. Overall prognosis is very guarded to poor. If not more responsive tomorrow, may need to consider repeat imaging of head/brain. 01/17/21: Extubate. HD today per renal. If tolerates both, transfer back to floor on new anti-epileptic regimen 1. Continue Versed at 3mg IV per Hour for the next 24 hours. 2. Repeat EEG tomorrow off Versed. 3. Will attempt to get this before HD tomorrow. 4. HD per renal, tomorrow as patient got HD yesterday CCT 31 minutes. Subjective Date of service: 01/30/21 Principal diagnosis: witnessed seizure hx of ESRD ,hyponatremia Interval history: No acute events. Trached on yesterday and tolerated well. Eyes open but still not following commands. Failed PSV after 2 hours. [birth year] birthday. Objective Vital Signs - 12hr 01/29/21 01/29/21 01/29/21 23:00 23:17 23:30 Temperature Pulse Rate 93 H 84 77 Pulse Rate [ From Monitor] Respiratory 22 18 20 Rate Blood Pressure 144/73 142/65 129/55 O2 Sat by Pulse 100 100 93 Oximetry 01/29/21 01/30/21 01/30/21 23:48 00:00 00:10 Temperature 97.7 F Pulse Rate 88 77 Pulse Rate [ 88 From Monitor] Respiratory 21 Rate Blood Pressure 135/66 135/66 O2 Sat by Pulse 100 100 Oximetry 01/30/21 01/30/21 01/30/21 00:31 01:00 01:31 Temperature Pulse Rate 89 89 89 Pulse Rate [ From Monitor] Respiratory 19 18 20 Rate Blood Pressure 139/70 132/63 132/63 O2 Sat by Pulse 100 100 100 Oximetry 01/30/21 01/30/21 01/30/21 02:00 02:30 03:00 Temperature Pulse Rate 88 91 H 91 H Pulse Rate [ From Monitor] Respiratory 19 22 23 Rate Blood Pressure 134/61 134/61 143/67 O2 Sat by Pulse 100 100 100 Oximetry 01/30/21 01/30/21 01/30/21 03:30 04:00 04:30 Temperature 97.9 F Pulse Rate 88 88 85 Pulse Rate [ 86 From Monitor] Respiratory 21 13 21 Rate Blood Pressure 134/61 137/62 137/62 O2 Sat by Pulse 100 100 99 Oximetry 01/30/21 01/30/21 01/30/21 04:42 05:00 05:30 Temperature Pulse Rate 85 87 87 Pulse Rate [ From Monitor] Respiratory 20 15 Rate Blood Pressure 137/62 130/61 130/61 O2 Sat by Pulse 99 99 100 Oximetry 01/30/21 01/30/21 01/30/21 06:00 06:30 07:00 Temperature Pulse Rate 87 86 87 Pulse Rate [ From Monitor] Respiratory 20 23 18 Rate Blood Pressure 130/61 130/61 130/61 O2 Sat by Pulse 98 60 L 100 Oximetry 01/30/21 01/30/21 01/30/21 07:40 07:45 07:54 Temperature 98 F Pulse Rate 85 84 Pulse Rate [ From Monitor] Respiratory 18 Rate Blood Pressure 127/55 127/55 O2 Sat by Pulse 100 100 Oximetry 01/30/21 09:45 Temperature Pulse Rate Pulse Rate [ From Monitor] Respiratory Rate Blood Pressure O2 Sat by Pulse 100 Oximetry Constitutional: no acute distress, comatose (secondary to meds for seizure) ENT: other (orally intubated and sedated) Neck: supple Effort: normal Ascultation: Bilateral: clear Cardiovascular: regular rate and rhythm Gastrointestinal: normoactive bowel sounds Integumentary: normal Extremities: no edema, pulses normal CBC and BMP: 01/30/21 04:54 01/30/21 04:54 ABG, PT/INR, D-dimer: ABG ABG pH 7.509 (7.320-7.450) H 01/26/21 05:00 POC ABG pCO2 35.8 mmHg (32.0-48.0) 01/26/21 05:00 ABG pCO2 39.5 mm Hg 01/22/21 04:00 POC ABG pO2 87.7 mmHg (83-108) 01/26/21 05:00 ABG pO2 118.8 mm Hg (80.0-90.0) H 01/22/21 04:00 POC ABG HCO3 27.9 01/26/21 05:00 ABG O2 Saturation 97.1 (0-100) 01/26/21 05:00 PT/INR, D-dimer PT 15.3 Sec. (12.2-14.9) H 01/29/21 09:35 INR 1.15 (0.87-1.13) H 01/29/21 09:35 Abnormal lab findings: Abnormal Labs 01/12/21 01/12/21 01/12/21 14:12 14:36 14:36 WBC 11.2 H RBC Hgb Hct MCV MCH 27 L RDW 21.0 H Plt Count Lymph % (Auto) Lymph # (Auto) Seg Neutrophils % 79.6 H Seg Neutrophils # 8.9 H PT INR APTT ABG pH POC ABG pCO2 POC ABG pO2 ABG pO2 ABG Hemoglobin ABG Oxyhemoglobin ABG Sodium ABG Potassium ABG Glucose Carboxyhemoglobin Sodium 136 L Potassium Chloride 95.8 L Carbon Dioxide 19 L BUN Creatinine 2.0 H Glucose 163 H POC Glucose 166 H Calcium 8.2 L Phosphorus Ammonia Total Protein 5.4 L Albumin 3.4 L TSH Arterial Blood Glucose Arterial Blood Ionized Calcium Phenytoin Valproic Acid 01/13/21 01/13/21 01/13/21 05:19 12:14 16:16 WBC RBC Hgb Hct MCV MCH RDW Plt Count Lymph % (Auto) Lymph # (Auto) Seg Neutrophils % Seg Neutrophils # PT INR APTT ABG pH POC ABG pCO2 POC ABG pO2 ABG pO2 ABG Hemoglobin ABG Oxyhemoglobin ABG Sodium ABG Potassium ABG Glucose Carboxyhemoglobin Sodium 134 L Potassium Chloride 95.5 L Carbon Dioxide BUN 23 H Creatinine 2.6 H Glucose 168 H POC Glucose 142 H 163 H Calcium Phosphorus Ammonia Total Protein 5.8 L Albumin 3.3 L TSH Arterial Blood Glucose Arterial Blood Ionized Calcium Phenytoin Valproic Acid 01/13/21 01/13/21 01/14/21 20:22 23:57 06:31 WBC RBC Hgb Hct MCV MCH RDW Plt Count Lymph % (Auto) Lymph # (Auto) Seg Neutrophils % Seg Neutrophils # PT INR APTT ABG pH POC ABG pCO2 POC ABG pO2 ABG pO2 ABG Hemoglobin ABG Oxyhemoglobin ABG Sodium ABG Potassium ABG Glucose Carboxyhemoglobin Sodium Potassium Chloride Carbon Dioxide BUN Creatinine Glucose POC Glucose 209 H 189 H 236 H Calcium Phosphorus Ammonia Total Protein Albumin TSH Arterial Blood Glucose Arterial Blood Ionized Calcium Phenytoin Valproic Acid 01/14/21 01/14/21 01/14/21 08:57 08:57 12:22 WBC 12.0 H RBC Hgb 11.3 L Hct 34.5 L MCV MCH RDW 20.6 H Plt Count Lymph % (Auto) 6.4 L Lymph # (Auto) 0.8 L Seg Neutrophils % 87.4 H Seg Neutrophils # 10.5 H PT INR APTT ABG pH POC ABG pCO2 POC ABG pO2 ABG pO2 ABG Hemoglobin ABG Oxyhemoglobin ABG Sodium ABG Potassium ABG Glucose Carboxyhemoglobin Sodium 131 L Potassium Chloride 93.7 L Carbon Dioxide BUN 37 H Creatinine 3.7 H Glucose 261 H POC Glucose 280 H Calcium Phosphorus Ammonia Total Protein Albumin TSH Arterial Blood Glucose Arterial Blood Ionized Calcium Phenytoin Valproic Acid 01/14/21 01/14/21 01/15/21 16:15 22:28 04:43 WBC RBC Hgb Hct MCV MCH RDW Plt Count Lymph % (Auto) Lymph # (Auto) Seg Neutrophils % Seg Neutrophils # PT INR APTT ABG pH POC ABG pCO2 POC ABG pO2 ABG pO2 ABG Hemoglobin ABG Oxyhemoglobin ABG Sodium ABG Potassium ABG Glucose Carboxyhemoglobin Sodium Potassium Chloride Carbon Dioxide BUN Creatinine Glucose POC Glucose 289 H 252 H 243 H Calcium Phosphorus Ammonia Total Protein Albumin TSH Arterial Blood Glucose Arterial Blood Ionized Calcium Phenytoin Valproic Acid 01/15/21 01/15/21 01/15/21 05:22 05:22 08:56 WBC 11.1 H RBC Hgb 11.0 L Hct 33.3 L MCV 83 L MCH 27 L RDW 20.6 H Plt Count Lymph % (Auto) 6.3 L Lymph # (Auto) 0.7 L Seg Neutrophils % 88.2 H Seg Neutrophils # 9.8 H PT INR APTT ABG pH POC ABG pCO2 POC ABG pO2 ABG pO2 ABG Hemoglobin ABG Oxyhemoglobin ABG Sodium ABG Potassium ABG Glucose Carboxyhemoglobin Sodium 130 L Potassium Chloride 92.0 L Carbon Dioxide BUN 49 H Creatinine 4.2 H Glucose 241 H POC Glucose Calcium Phosphorus Ammonia Total Protein Albumin TSH Arterial Blood Glucose Arterial Blood Ionized Calcium Phenytoin Valproic Acid 45.9 L 01/15/21 01/15/21 01/15/21 16:42 18:14 23:10 WBC RBC Hgb Hct MCV MCH RDW Plt Count Lymph % (Auto) Lymph # (Auto) Seg Neutrophils % Seg Neutrophils # PT INR APTT ABG pH 7.463 H POC ABG pCO2 POC ABG pO2 377.4 H ABG pO2 ABG Hemoglobin 11.6 L ABG Oxyhemoglobin 98.6 H ABG Sodium 130.1 L ABG Potassium ABG Glucose 254 H Carboxyhemoglobin Sodium Potassium Chloride Carbon Dioxide BUN Creatinine Glucose POC Glucose 218 H 279 H Calcium Phosphorus Ammonia Total Protein Albumin TSH Arterial Blood Glucose 254 H Arterial Blood Ionized Calcium 4.5 L Phenytoin Valproic Acid 01/16/21 01/16/21 01/16/21 03:10 05:11 05:17 WBC RBC Hgb 10.4 L Hct 31.8 L MCV MCH 27 L RDW 20.3 H Plt Count 132 L Lymph % (Auto) Lymph # (Auto) Seg Neutrophils % Seg Neutrophils # PT INR APTT ABG pH POC ABG pCO2 POC ABG pO2 174.4 H ABG pO2 ABG Hemoglobin 10.3 L ABG Oxyhemoglobin 98.6 H ABG Sodium 129.9 L ABG Potassium 3.2 L ABG Glucose 202 H Carboxyhemoglobin Sodium Potassium Chloride Carbon Dioxide BUN Creatinine Glucose POC Glucose 193 H Calcium Phosphorus Ammonia Total Protein Albumin TSH Arterial Blood Glucose 202 H Arterial Blood Ionized Calcium Phenytoin Valproic Acid 01/16/21 01/16/21 01/16/21 05:17 09:15 11:33 WBC RBC Hgb Hct MCV MCH RDW Plt Count Lymph % (Auto) Lymph # (Auto) Seg Neutrophils % Seg Neutrophils # PT INR APTT ABG pH POC ABG pCO2 POC ABG pO2 ABG pO2 ABG Hemoglobin ABG Oxyhemoglobin ABG Sodium ABG Potassium ABG Glucose Carboxyhemoglobin Sodium Potassium 3.4 L Chloride Carbon Dioxide BUN 36 H Creatinine 3.2 H Glucose 216 H POC Glucose 174 H Calcium 8.3 L Phosphorus 1.10 L Ammonia Total Protein Albumin TSH Arterial Blood Glucose Arterial Blood Ionized Calcium Phenytoin 6.5 L Valproic Acid 01/16/21 01/17/21 01/17/21 18:13 00:10 04:00 WBC RBC Hgb Hct MCV MCH RDW Plt Count Lymph % (Auto) Lymph # (Auto) Seg Neutrophils % Seg Neutrophils # PT INR APTT ABG pH POC ABG pCO2 POC ABG pO2 ABG pO2 ABG Hemoglobin 10.1 L ABG Oxyhemoglobin ABG Sodium 130.1 L ABG Potassium 3.3 L ABG Glucose 153 H Carboxyhemoglobin Sodium Potassium Chloride Carbon Dioxide BUN Creatinine Glucose POC Glucose 162 H 150 H Calcium Phosphorus Ammonia Total Protein Albumin TSH Arterial Blood Glucose 153 H Arterial Blood Ionized Calcium Phenytoin Valproic Acid 01/17/21 01/17/21 01/17/21 05:30 05:48 11:14 WBC RBC Hgb Hct MCV MCH RDW Plt Count Lymph % (Auto) Lymph # (Auto) Seg Neutrophils % Seg Neutrophils # PT INR APTT ABG pH POC ABG pCO2 POC ABG pO2 ABG pO2 ABG Hemoglobin ABG Oxyhemoglobin ABG Sodium ABG Potassium ABG Glucose Carboxyhemoglobin Sodium 136 L Potassium 3.5 L Chloride Carbon Dioxide BUN 48 H Creatinine 3.5 H Glucose 165 H POC Glucose 149 H Calcium 8.0 L Phosphorus 0.80 L* D Ammonia 22.0 L Total Protein Albumin TSH Arterial Blood Glucose Arterial Blood Ionized Calcium Phenytoin Valproic Acid 01/17/21 01/17/21 01/17/21 11:43 17:34 18:46 WBC RBC Hgb Hct MCV MCH RDW Plt Count Lymph % (Auto) Lymph # (Auto) Seg Neutrophils % Seg Neutrophils # PT INR APTT ABG pH POC ABG pCO2 POC ABG pO2 ABG pO2 ABG Hemoglobin ABG Oxyhemoglobin ABG Sodium ABG Potassium ABG Glucose Carboxyhemoglobin Sodium Potassium Chloride Carbon Dioxide BUN Creatinine Glucose POC Glucose 160 H 209 H Calcium Phosphorus 2.20 L D Ammonia Total Protein Albumin TSH Arterial Blood Glucose Arterial Blood Ionized Calcium Phenytoin Valproic Acid 01/17/21 01/17/21 01/18/21 19:00 23:19 03:28 WBC RBC Hgb Hct MCV MCH RDW Plt Count Lymph % (Auto) Lymph # (Auto) Seg Neutrophils % Seg Neutrophils # PT INR APTT ABG pH POC ABG pCO2 POC ABG pO2 190.2 H ABG pO2 ABG Hemoglobin 11.9 L ABG Oxyhemoglobin 98.5 H ABG Sodium 130.9 L 131.0 L ABG Potassium 3.0 L 2.8 L ABG Glucose 241 H Carboxyhemoglobin Sodium Potassium Chloride Carbon Dioxide BUN Creatinine Glucose POC Glucose 222 H Calcium Phosphorus Ammonia Total Protein Albumin TSH Arterial Blood Glucose 241 H Arterial Blood Ionized Calcium 4.5 L Phenytoin Valproic Acid 01/18/21 01/18/21 01/18/21 04:16 06:20 10:20 WBC 14.1 H RBC Hgb 11.2 L Hct 34.5 L MCV 83 L MCH 27 L RDW 20.8 H Plt Count 116 L Lymph % (Auto) Lymph # (Auto) Seg Neutrophils % Seg Neutrophils # PT INR APTT ABG pH POC ABG pCO2 POC ABG pO2 ABG pO2 ABG Hemoglobin ABG Oxyhemoglobin ABG Sodium ABG Potassium ABG Glucose Carboxyhemoglobin Sodium 134 L Potassium 2.9 L* Chloride Carbon Dioxide 21 L BUN 60 H Creatinine 3.9 H Glucose POC Glucose 69 L Calcium Phosphorus 1.60 L D Ammonia Total Protein Albumin TSH Arterial Blood Glucose Arterial Blood Ionized Calcium Phenytoin Valproic Acid 01/18/21 01/18/21 01/18/21 11:29 15:30 17:23 WBC RBC Hgb Hct MCV MCH RDW Plt Count Lymph % (Auto) Lymph # (Auto) Seg Neutrophils % Seg Neutrophils # PT INR APTT ABG pH POC ABG pCO2 POC ABG pO2 ABG pO2 ABG Hemoglobin ABG Oxyhemoglobin ABG Sodium ABG Potassium ABG Glucose Carboxyhemoglobin Sodium Potassium 3.3 L Chloride Carbon Dioxide BUN 42 H Creatinine 3.1 H Glucose 190 H POC Glucose 128 H 167 H Calcium 8.2 L Phosphorus 1.10 L D Ammonia Total Protein Albumin TSH Arterial Blood Glucose Arterial Blood Ionized Calcium Phenytoin Valproic Acid 01/18/21 01/19/21 01/19/21 23:43 03:43 04:38 WBC RBC Hgb Hct MCV MCH RDW Plt Count Lymph % (Auto) Lymph # (Auto) Seg Neutrophils % Seg Neutrophils # PT INR APTT ABG pH 7.536 H POC ABG pCO2 27.0 L POC ABG pO2 165.8 H ABG pO2 ABG Hemoglobin 10.7 L ABG Oxyhemoglobin 98.4 H ABG Sodium 131.3 L ABG Potassium ABG Glucose 152 H Carboxyhemoglobin Sodium Potassium Chloride Carbon Dioxide BUN 55 H Creatinine 3.8 H Glucose 143 H POC Glucose 232 H Calcium Phosphorus 1.10 L Ammonia Total Protein Albumin TSH Arterial Blood Glucose 152 H Arterial Blood Ionized Calcium Phenytoin Valproic Acid 01/19/21 01/19/21 01/19/21 05:12 11:36 15:16 WBC RBC Hgb Hct MCV MCH RDW Plt Count Lymph % (Auto) Lymph # (Auto) Seg Neutrophils % Seg Neutrophils # PT INR APTT ABG pH POC ABG pCO2 POC ABG pO2 ABG pO2 ABG Hemoglobin ABG Oxyhemoglobin ABG Sodium ABG Potassium ABG Glucose Carboxyhemoglobin Sodium Potassium Chloride Carbon Dioxide BUN Creatinine Glucose POC Glucose 135 H 201 H Calcium Phosphorus 1.10 L Ammonia Total Protein Albumin TSH Arterial Blood Glucose Arterial Blood Ionized Calcium Phenytoin Valproic Acid 01/19/21 01/19/21 01/20/21 17:55 23:22 04:00 WBC RBC Hgb Hct MCV MCH RDW Plt Count Lymph % (Auto) Lymph # (Auto) Seg Neutrophils % Seg Neutrophils # PT INR APTT ABG pH 7.513 H POC ABG pCO2 POC ABG pO2 ABG pO2 ABG Hemoglobin 9.9 L ABG Oxyhemoglobin ABG Sodium 129.4 L ABG Potassium ABG Glucose 196 H Carboxyhemoglobin Sodium Potassium Chloride Carbon Dioxide BUN Creatinine Glucose POC Glucose 222 H 252 H Calcium Phosphorus Ammonia Total Protein Albumin TSH Arterial Blood Glucose 196 H Arterial Blood Ionized Calcium Phenytoin Valproic Acid 01/20/21 01/20/21 01/20/21 05:15 11:15 14:49 WBC 16.1 H RBC Hgb 9.9 L Hct 30.3 L MCV 82 L MCH 27 L RDW 20.7 H Plt Count 114 L Lymph % (Auto) Lymph # (Auto) Seg Neutrophils % Seg Neutrophils # PT INR APTT ABG pH POC ABG pCO2 POC ABG pO2 ABG pO2 ABG Hemoglobin ABG Oxyhemoglobin ABG Sodium ABG Potassium ABG Glucose Carboxyhemoglobin Sodium Potassium Chloride Carbon Dioxide BUN Creatinine Glucose POC Glucose 163 H 149 H Calcium Phosphorus Ammonia Total Protein Albumin TSH Arterial Blood Glucose Arterial Blood Ionized Calcium Phenytoin Valproic Acid 01/20/21 01/20/21 01/20/21 14:49 14:49 17:12 WBC RBC Hgb Hct MCV MCH RDW Plt Count Lymph % (Auto) Lymph # (Auto) Seg Neutrophils % Seg Neutrophils # PT INR APTT ABG pH POC ABG pCO2 POC ABG pO2 ABG pO2 ABG Hemoglobin ABG Oxyhemoglobin ABG Sodium ABG Potassium ABG Glucose Carboxyhemoglobin Sodium 133 L Potassium Chloride 95.8 L Carbon Dioxide BUN 48 H Creatinine 3.1 H Glucose 167 H POC Glucose 155 H Calcium Phosphorus 0.80 L* D Ammonia Total Protein Albumin TSH Arterial Blood Glucose Arterial Blood Ionized Calcium Phenytoin Valproic Acid 48.4 L 01/21/21 01/21/21 01/21/21 00:55 05:20 06:39 WBC 17.5 H RBC 3.62 L Hgb 9.6 L Hct 29.7 L MCV 82 L MCH 26 L RDW 21.4 H Plt Count 126 L Lymph % (Auto) Lymph # (Auto) Seg Neutrophils % Seg Neutrophils # PT INR APTT ABG pH POC ABG pCO2 POC ABG pO2 ABG pO2 ABG Hemoglobin ABG Oxyhemoglobin ABG Sodium ABG Potassium ABG Glucose Carboxyhemoglobin Sodium Potassium Chloride Carbon Dioxide BUN Creatinine Glucose POC Glucose 134 H 170 H Calcium Phosphorus Ammonia Total Protein Albumin TSH Arterial Blood Glucose Arterial Blood Ionized Calcium Phenytoin Valproic Acid 01/21/21 01/21/21 01/21/21 06:39 11:32 17:41 WBC RBC Hgb Hct MCV MCH RDW Plt Count Lymph % (Auto) Lymph # (Auto) Seg Neutrophils % Seg Neutrophils # PT INR APTT ABG pH POC ABG pCO2 POC ABG pO2 ABG pO2 ABG Hemoglobin ABG Oxyhemoglobin ABG Sodium ABG Potassium ABG Glucose Carboxyhemoglobin Sodium 133 L Potassium Chloride 95.9 L Carbon Dioxide BUN 56 H Creatinine 3.2 H Glucose 159 H POC Glucose 159 H 137 H Calcium Phosphorus 2.30 L D Ammonia Total Protein Albumin TSH Arterial Blood Glucose Arterial Blood Ionized Calcium Phenytoin Valproic Acid 01/21/21 01/22/21 01/22/21 23:48 04:00 04:20 WBC 14.0 H RBC 3.47 L Hgb 9.3 L Hct 28.6 L MCV 83 L MCH 27 L RDW 21.4 H Plt Count 129 L Lymph % (Auto) Lymph # (Auto) Seg Neutrophils % Seg Neutrophils # PT INR APTT ABG pH POC ABG pCO2 POC ABG pO2 ABG pO2 118.8 H ABG Hemoglobin 9.6 L ABG Oxyhemoglobin ABG Sodium ABG Potassium ABG Glucose Carboxyhemoglobin Sodium Potassium Chloride Carbon Dioxide BUN Creatinine Glucose POC Glucose 203 H Calcium Phosphorus Ammonia Total Protein Albumin TSH Arterial Blood Glucose Arterial Blood Ionized Calcium Phenytoin Valproic Acid 01/22/21 01/22/21 01/22/21 04:20 04:20 04:20 WBC RBC Hgb Hct MCV MCH RDW Plt Count Lymph % (Auto) Lymph # (Auto) Seg Neutrophils % Seg Neutrophils # PT INR APTT ABG pH POC ABG pCO2 POC ABG pO2 ABG pO2 ABG Hemoglobin ABG Oxyhemoglobin ABG Sodium ABG Potassium ABG Glucose Carboxyhemoglobin Sodium 131 L Potassium Chloride 92.9 L Carbon Dioxide 21 L BUN 69 H Creatinine 3.9 H Glucose 230 H POC Glucose Calcium 8.1 L Phosphorus Ammonia 19.0 L Total Protein 5.2 L Albumin 1.9 L TSH 4.730 H Arterial Blood Glucose Arterial Blood Ionized Calcium Phenytoin Valproic Acid 01/22/21 01/22/21 01/22/21 04:20 05:14 11:36 WBC RBC Hgb Hct MCV MCH RDW Plt Count Lymph % (Auto) Lymph # (Auto) Seg Neutrophils % Seg Neutrophils # PT 15.2 H INR 1.15 H APTT ABG pH POC ABG pCO2 POC ABG pO2 ABG pO2 ABG Hemoglobin ABG Oxyhemoglobin ABG Sodium ABG Potassium ABG Glucose Carboxyhemoglobin Sodium Potassium Chloride Carbon Dioxide BUN Creatinine Glucose POC Glucose 213 H 151 H Calcium Phosphorus Ammonia Total Protein Albumin TSH Arterial Blood Glucose Arterial Blood Ionized Calcium Phenytoin Valproic Acid 01/22/21 01/23/21 01/23/21 17:47 00:06 04:41 WBC 18.5 H RBC 3.43 L Hgb 9.0 L Hct 28.1 L MCV 82 L MCH 26 L RDW 21.6 H Plt Count Lymph % (Auto) Lymph # (Auto) Seg Neutrophils % Seg Neutrophils # PT INR APTT ABG pH POC ABG pCO2 POC ABG pO2 ABG pO2 ABG Hemoglobin ABG Oxyhemoglobin ABG Sodium ABG Potassium ABG Glucose Carboxyhemoglobin Sodium Potassium Chloride Carbon Dioxide BUN Creatinine Glucose POC Glucose 271 H 295 H Calcium Phosphorus Ammonia Total Protein Albumin TSH Arterial Blood Glucose Arterial Blood Ionized Calcium Phenytoin Valproic Acid 01/23/21 01/23/21 01/23/21 04:41 05:31 11:54 WBC RBC Hgb Hct MCV MCH RDW Plt Count Lymph % (Auto) Lymph # (Auto) Seg Neutrophils % Seg Neutrophils # PT INR APTT ABG pH POC ABG pCO2 POC ABG pO2 ABG pO2 ABG Hemoglobin ABG Oxyhemoglobin ABG Sodium ABG Potassium ABG Glucose Carboxyhemoglobin Sodium 135 L Potassium Chloride Carbon Dioxide BUN 53 H Creatinine 3.1 H Glucose 187 H POC Glucose 183 H 178 H Calcium Phosphorus Ammonia Total Protein Albumin TSH Arterial Blood Glucose Arterial Blood Ionized Calcium Phenytoin Valproic Acid 01/23/21 01/23/21 01/24/21 17:54 23:15 05:27 WBC RBC Hgb Hct MCV MCH RDW Plt Count Lymph % (Auto) Lymph # (Auto) Seg Neutrophils % Seg Neutrophils # PT INR APTT ABG pH POC ABG pCO2 POC ABG pO2 ABG pO2 ABG Hemoglobin ABG Oxyhemoglobin ABG Sodium ABG Potassium ABG Glucose Carboxyhemoglobin Sodium Potassium Chloride Carbon Dioxide BUN Creatinine Glucose POC Glucose 243 H 241 H 298 H Calcium Phosphorus Ammonia Total Protein Albumin TSH Arterial Blood Glucose Arterial Blood Ionized Calcium Phenytoin Valproic Acid 01/24/21 01/24/21 01/24/21 12:00 17:26 23:53 WBC RBC Hgb Hct MCV MCH RDW Plt Count Lymph % (Auto) Lymph # (Auto) Seg Neutrophils % Seg Neutrophils # PT INR APTT ABG pH POC ABG pCO2 POC ABG pO2 ABG pO2 ABG Hemoglobin ABG Oxyhemoglobin ABG Sodium ABG Potassium ABG Glucose Carboxyhemoglobin Sodium Potassium Chloride Carbon Dioxide BUN Creatinine Glucose POC Glucose 259 H 178 H 251 H Calcium Phosphorus Ammonia Total Protein Albumin TSH Arterial Blood Glucose Arterial Blood Ionized Calcium Phenytoin Valproic Acid 01/25/21 01/25/21 01/25/21 04:54 06:02 11:27 WBC RBC Hgb Hct MCV MCH RDW Plt Count Lymph % (Auto) Lymph # (Auto) Seg Neutrophils % Seg Neutrophils # PT INR APTT ABG pH POC ABG pCO2 POC ABG pO2 ABG pO2 ABG Hemoglobin ABG Oxyhemoglobin ABG Sodium ABG Potassium ABG Glucose Carboxyhemoglobin Sodium Potassium Chloride Carbon Dioxide BUN Creatinine Glucose POC Glucose 235 H 209 H Calcium Phosphorus 2.20 L Ammonia Total Protein Albumin TSH Arterial Blood Glucose Arterial Blood Ionized Calcium Phenytoin Valproic Acid 01/25/21 01/25/21 01/26/21 17:32 23:36 05:00 WBC RBC Hgb Hct MCV MCH RDW Plt Count Lymph % (Auto) Lymph # (Auto) Seg Neutrophils % Seg Neutrophils # PT INR APTT ABG pH 7.509 H POC ABG pCO2 POC ABG pO2 ABG pO2 ABG Hemoglobin 8.7 L ABG Oxyhemoglobin ABG Sodium 130.9 L ABG Potassium 5.5 H ABG Glucose 219 H Carboxyhemoglobin 1.7 H Sodium Potassium Chloride Carbon Dioxide BUN Creatinine Glucose POC Glucose 249 H 183 H Calcium Phosphorus Ammonia Total Protein Albumin TSH Arterial Blood Glucose 219 H Arterial Blood Ionized Calcium 4.3 L Phenytoin Valproic Acid 01/26/21 01/26/21 01/26/21 05:21 06:47 06:47 WBC 21.6 H RBC 3.18 L Hgb 8.4 L Hct 26.6 L MCV MCH 27 L RDW 21.8 H Plt Count Lymph % (Auto) Lymph # (Auto) Seg Neutrophils % Seg Neutrophils # PT INR APTT ABG pH POC ABG pCO2 POC ABG pO2 ABG pO2 ABG Hemoglobin ABG Oxyhemoglobin ABG Sodium ABG Potassium ABG Glucose Carboxyhemoglobin Sodium 133 L Potassium 5.6 H D Chloride 94.5 L Carbon Dioxide BUN 73 H Creatinine 3.6 H Glucose 245 H POC Glucose 179 H Calcium Phosphorus Ammonia Total Protein Albumin TSH Arterial Blood Glucose Arterial Blood Ionized Calcium Phenytoin Valproic Acid 01/26/21 01/26/21 01/26/21 11:36 17:41 23:12 WBC RBC Hgb Hct MCV MCH RDW Plt Count Lymph % (Auto) Lymph # (Auto) Seg Neutrophils % Seg Neutrophils # PT INR APTT ABG pH POC ABG pCO2 POC ABG pO2 ABG pO2 ABG Hemoglobin ABG Oxyhemoglobin ABG Sodium ABG Potassium ABG Glucose Carboxyhemoglobin Sodium Potassium Chloride Carbon Dioxide BUN Creatinine Glucose POC Glucose 235 H 174 H 178 H Calcium Phosphorus Ammonia Total Protein Albumin TSH Arterial Blood Glucose Arterial Blood Ionized Calcium Phenytoin Valproic Acid 01/27/21 01/27/21 01/27/21 05:26 11:43 17:31 WBC RBC Hgb Hct MCV MCH RDW Plt Count Lymph % (Auto) Lymph # (Auto) Seg Neutrophils % Seg Neutrophils # PT INR APTT ABG pH POC ABG pCO2 POC ABG pO2 ABG pO2 ABG Hemoglobin ABG Oxyhemoglobin ABG Sodium ABG Potassium ABG Glucose Carboxyhemoglobin Sodium Potassium Chloride Carbon Dioxide BUN Creatinine Glucose POC Glucose 179 H 207 H 157 H Calcium Phosphorus Ammonia Total Protein Albumin TSH Arterial Blood Glucose Arterial Blood Ionized Calcium Phenytoin Valproic Acid 01/27/21 01/27/21 01/28/21 17:45 23:28 05:15 WBC RBC Hgb Hct MCV MCH RDW Plt Count Lymph % (Auto) Lymph # (Auto) Seg Neutrophils % Seg Neutrophils # PT INR APTT ABG pH POC ABG pCO2 POC ABG pO2 ABG pO2 ABG Hemoglobin ABG Oxyhemoglobin ABG Sodium ABG Potassium ABG Glucose Carboxyhemoglobin Sodium Potassium Chloride Carbon Dioxide BUN Creatinine Glucose POC Glucose 149 H 209 H Calcium Phosphorus 2.30 L Ammonia Total Protein Albumin TSH Arterial Blood Glucose Arterial Blood Ionized Calcium Phenytoin Valproic Acid 01/28/21 01/28/21 01/28/21 05:17 05:18 11:28 WBC RBC Hgb Hct MCV MCH RDW Plt Count Lymph % (Auto) Lymph # (Auto) Seg Neutrophils % Seg Neutrophils # PT INR APTT ABG pH POC ABG pCO2 POC ABG pO2 ABG pO2 ABG Hemoglobin ABG Oxyhemoglobin ABG Sodium ABG Potassium ABG Glucose Carboxyhemoglobin Sodium 131 L Potassium 5.6 H Chloride 92.0 L Carbon Dioxide BUN 58 H Creatinine 2.8 H Glucose 127 H POC Glucose 129 H 158 H Calcium 7.8 L Phosphorus Ammonia Total Protein Albumin TSH Arterial Blood Glucose Arterial Blood Ionized Calcium Phenytoin Valproic Acid 01/28/21 01/28/21 01/28/21 12:58 17:56 23:49 WBC RBC Hgb Hct MCV MCH RDW Plt Count Lymph % (Auto) Lymph # (Auto) Seg Neutrophils % Seg Neutrophils # PT INR APTT 38.7 H ABG pH POC ABG pCO2 POC ABG pO2 ABG pO2 ABG Hemoglobin ABG Oxyhemoglobin ABG Sodium ABG Potassium ABG Glucose Carboxyhemoglobin Sodium Potassium Chloride Carbon Dioxide BUN Creatinine Glucose POC Glucose 188 H 140 H Calcium Phosphorus Ammonia Total Protein Albumin TSH Arterial Blood Glucose Arterial Blood Ionized Calcium Phenytoin Valproic Acid 01/29/21 01/29/21 01/29/21 05:08 09:35 09:35 WBC 19.0 H RBC 2.79 L Hgb 7.5 L Hct 23.0 L MCV 83 L MCH 27 L RDW 22.9 H Plt Count Lymph % (Auto) Lymph # (Auto) Seg Neutrophils % Seg Neutrophils # PT 15.3 H INR 1.15 H APTT ABG pH POC ABG pCO2 POC ABG pO2 ABG pO2 ABG Hemoglobin ABG Oxyhemoglobin ABG Sodium ABG Potassium ABG Glucose Carboxyhemoglobin Sodium Potassium Chloride Carbon Dioxide BUN Creatinine Glucose POC Glucose 107 H Calcium Phosphorus Ammonia Total Protein Albumin TSH Arterial Blood Glucose Arterial Blood Ionized Calcium Phenytoin Valproic Acid 01/29/21 01/29/21 01/29/21 09:35 18:00 21:32 WBC RBC Hgb Hct MCV MCH RDW Plt Count Lymph % (Auto) Lymph # (Auto) Seg Neutrophils % Seg Neutrophils # PT INR APTT ABG pH POC ABG pCO2 POC ABG pO2 ABG pO2 ABG Hemoglobin ABG Oxyhemoglobin ABG Sodium ABG Potassium ABG Glucose Carboxyhemoglobin Sodium Potassium Chloride 96.7 L Carbon Dioxide 32 H BUN 35 H Creatinine 2.3 H Glucose POC Glucose 133 H 235 H Calcium Phosphorus Ammonia Total Protein Albumin TSH Arterial Blood Glucose Arterial Blood Ionized Calcium Phenytoin Valproic Acid 01/30/21 01/30/21 01/30/21 04:54 04:54 05:28 WBC 25.4 H RBC 3.01 L Hgb 8.1 L Hct 25.5 L MCV MCH 27 L RDW 22.9 H Plt Count Lymph % (Auto) Lymph # (Auto) Seg Neutrophils % Seg Neutrophils # PT INR APTT ABG pH POC ABG pCO2 POC ABG pO2 ABG pO2 ABG Hemoglobin ABG Oxyhemoglobin ABG Sodium ABG Potassium ABG Glucose Carboxyhemoglobin Sodium 136 L Potassium 3.4 L Chloride 95.4 L Carbon Dioxide BUN 44 H Creatinine 2.8 H Glucose 197 H POC Glucose 209 H Calcium 8.2 L Phosphorus Ammonia Total Protein Albumin TSH Arterial Blood Glucose Arterial Blood Ionized Calcium Phenytoin Valproic Acid
[2021-01-30] MEDS: CALCITRIOL 0.5 MCG CAP PO SCH (11:12)
[2021-01-30] MEDS: DOXAZOSIN 1 MG TAB PO SCH (11:12)
[2021-01-30] MEDS: LINAGLIPTIN 5 MG TAB PO SCH (11:13)
[2021-01-30] MEDS: TIMOLOL 0.5% OPHTH SOLN 5 ML OU SCH (11:13)
[2021-01-30] MEDS: LANSOPRAZOLE 30 MG SOLUTAB FEEDTUBE SCH (11:13)
--- NOTE | 2021-01-30 12:22 | Progress Note ---
Assessment and Plan 1.ESRD: Patient is on maintenance hemodialysis three times a week, TTS schedule. Last outpatient HD 01/12/2021. Meds dosage based on GFR. Hemodialysis: 01/15, 01/16, 01/17(UF), 01/18, 01/22, 01/24, 01/26, 01/28, 01/29 (UF). 2. FEN: Hyperkalemia, improved. Volume overload, UF with HD. Hyponatremia, improved, monitor. Monitor lytes and volume status. 3. Acute resp failure: Currently Trached, on vent. Extubated 01/17. Re-intubated 01/17. S/p Trach 01/29. 4. Shock: Off pressors. Monitor. 5. New onset of possible witnessed seizure during dialysis: CT brain remarkable for white matter changes. MRI brain: small SDH, chronic changes. On Keppra. Seizure precaution. Seen by Neuro. 6. Advanced dementia: CT white matter changes. 7. Failure to thrive: PEG tube. 8. Anemia, POA: Epogen with HD. 9. DM type 2. 10. Acute metabolic encephalopathy: Seen by Neuro. Subjective: Patient was seen and examined at the bedside. Examination: General appearance: well-developed, appears stated age, no distress, on vent, FiO2 25% HEENT: ATNC, pupils equal Neck: Trachea midline Respiratory: ctab Cardiology: regular, S1S2, no murmur Abdomen: soft, not tender, BS heard, Peg tube noted Integumentary: warm, dry, no obvious rash Neurologic: not responding Ext: dependent edema noted Hemodialysis catheter: R IJ tunnel catheter Subjective Date of service: 01/30/21 Principal diagnosis: witnessed seizure hx of ESRD ,hyponatremia Objective - Vital Signs Vital signs: Vital Signs - 12hr 01/30/21 01/30/21 01/30/21 00:31 01:00 01:31 Temperature Pulse Rate 89 89 89 Pulse Rate [ From Monitor] Respiratory 19 18 20 Rate Blood Pressure 139/70 132/63 132/63 O2 Sat by Pulse 100 100 100 Oximetry 01/30/21 01/30/21 01/30/21 02:00 02:30 03:00 Temperature Pulse Rate 88 91 H 91 H Pulse Rate [ From Monitor] Respiratory 19 22 23 Rate Blood Pressure 134/61 134/61 143/67 O2 Sat by Pulse 100 100 100 Oximetry 01/30/21 01/30/21 01/30/21 03:30 04:00 04:30 Temperature 97.9 F Pulse Rate 88 88 85 Pulse Rate [ 86 From Monitor] Respiratory 21 13 21 Rate Blood Pressure 134/61 137/62 137/62 O2 Sat by Pulse 100 100 99 Oximetry 01/30/21 01/30/21 01/30/21 04:42 05:00 05:30 Temperature Pulse Rate 85 87 87 Pulse Rate [ From Monitor] Respiratory 20 15 Rate Blood Pressure 137/62 130/61 130/61 O2 Sat by Pulse 99 99 100 Oximetry 01/30/21 01/30/21 01/30/21 06:00 06:30 07:00 Temperature Pulse Rate 87 86 87 Pulse Rate [ From Monitor] Respiratory 20 23 18 Rate Blood Pressure 130/61 130/61 130/61 O2 Sat by Pulse 98 60 L 100 Oximetry 01/30/21 01/30/21 01/30/21 07:30 07:40 07:45 Temperature Pulse Rate 84 85 84 Pulse Rate [ From Monitor] Respiratory 19 18 Rate Blood Pressure 127/55 127/55 127/55 O2 Sat by Pulse 100 100 100 Oximetry 01/30/21 01/30/21 01/30/21 07:54 08:00 08:30 Temperature 98 F Pulse Rate 86 83 Pulse Rate [ From Monitor] Respiratory 26 H 22 Rate Blood Pressure 137/56 137/56 O2 Sat by Pulse 100 100 Oximetry 01/30/21 01/30/21 01/30/21 09:00 09:30 09:45 Temperature Pulse Rate 86 83 Pulse Rate [ From Monitor] Respiratory 13 18 Rate Blood Pressure 123/59 123/59 O2 Sat by Pulse 100 100 100 Oximetry 01/30/21 01/30/21 01/30/21 10:00 10:30 11:00 Temperature Pulse Rate 85 83 82 Pulse Rate [ From Monitor] Respiratory 18 16 12 Rate Blood Pressure 125/52 125/52 124/53 O2 Sat by Pulse 100 100 100 Oximetry 01/30/21 11:12 Temperature Pulse Rate 81 Pulse Rate [ From Monitor] Respiratory Rate Blood Pressure 124/53 O2 Sat by Pulse Oximetry - Lab 01/30/21 04:54 01/30/21 04:54 Most recent lab results ABG pH 7.509 (7.320-7.450) H 01/26/21 05:00 ABG pCO2 39.5 mm Hg 01/22/21 04:00 ABG pO2 118.8 mm Hg (80.0-90.0) H 01/22/21 04:00 ABG HCO3 24.5 mmol/L (20.0-26.0) 01/22/21 04:00 ABG O2 Saturation 97.1 (0-100) 01/26/21 05:00 Calcium 8.2 mg/dL (8.4-10.2) L 01/30/21 04:54 Phosphorus 4.10 mg/dL (2.5-4.5) 01/30/21 04:54 Magnesium 1.80 mg/dL (1.7-2.3) 01/30/21 04:54 Medications & Allergies - Medications Allergies/Adverse Reactions: Allergies No Known Allergies Allergy (Verified 08/14/19 16:11) Home Medications: Home Medications Medication Instructions Recorded Confirmed Last Taken Type ALBUTEROL NEB's [Proventil 0.083% 2.5 mg IH Q4HRT PRN nebu 01/30/21 Unknown Rx NEBS] Acetaminophen [Acetaminophen TAB] 650 mg PO Q4H PRN tablet 01/30/21 Unknown Rx AtorvaSTATin [Lipitor] 40 mg PO QHS tablet 01/30/21 Unknown Rx Docusate Sodium [Colace ORAL LIQ] 100 mg PO BID PRN oral.liqd 01/30/21 Unknown Rx Doxazosin [Cardura] 2 mg PO QDAY tablet 01/30/21 Unknown Rx Epoetin George-Epbx 10,000 Unit 10,000 unit SUB-Q DIONNA PRN vial 01/30/21 Unknown Rx [Retacrit] Insulin Glargine [Lantus VIAL] 5 units SUB-Q QHS units 01/30/21 Unknown Rx Lansoprazole Solutab [Prevacid 30 mg FEEDTUBE BID tab.rapdis 01/30/21 Unknown Rx Solutab] Linagliptin [Tradjenta] 5 mg PO QDDIAB tablet 01/30/21 Unknown Rx Lispro Insulin [HumaLOG] 0 unit SUB-Q Q6HR units 01/30/21 Unknown Rx Min Oil/Petrolatum [Artificial 1 applic OU Q4HR PRN tube 01/30/21 Unknown Rx Tears Ophth Oint] Petrolatum,White [Vaseline Lip 1 applic TP Q2HR PRN tube 01/30/21 Unknown Rx Therapy] Scopolamine [Transderm-Scop] 1 each TD Q3D patch 01/30/21 Unknown Rx Sennosides Tab [Senokot] 17.2 mg PO Q8H tablet 01/30/21 Unknown Rx Simple Syrup 15 ml FEEDTUBE PRN PRN oral.liqd 01/30/21 Unknown Rx Simple Syrup 30 ml FEEDTUBE PRN PRN oral.liqd 01/30/21 Unknown Rx Sodium Bicarbonate 325 mg FEEDTUBE PRN PRN tablet 01/30/21 Unknown Rx Sodium Chloride 0.9% Int [Sodium 10 ml IV BID syringe 01/30/21 Unknown Rx Chloride Flush Syringe 10 ml] Timolol 0.5% [Timoptic] 1 drops OU QDAY bottle 01/30/21 Unknown Rx calcitrioL [Rocaltrol] 1 mcg PO QDAY capsule 01/30/21 Unknown Rx hydrALAZINE [Apresoline INJ] 20 mg IV Q4HR PRN vial 01/30/21 Unknown Rx levETIRAcetam [Keppra] 250 mg PO QHS oral.liqd 01/30/21 Unknown Rx Active Medications: Generic Name Dose Route Start Last Admin Trade Name Freq PRN Reason Stop Dose Admin Acetaminophen 650 mg 01/12/21 19:30 Acetaminophen 325 Mg Tab PO Q4H PRN Pain MILD(1-3)/Fever >100.5/ABEL Albuterol 2.5 mg 01/12/21 19:30 Albuterol 2.5 Mg/3 Ml Nebu IH Q4HRT PRN Shortness Of Breath Lipase/Protease/Amylase 1 each 01/13/21 10:11 01/27/21 09:43 Lipase 10,500/Protease 25,000/Amylase 43,750 (Units) Dr Silveira FEEDTUBE 1 each PRN PRN Administration For Clogged Feeding Tube Atorvastatin Calcium 40 mg 01/12/21 22:00 01/29/21 22:07 Atorvastatin 40 Mg Tab PO 40 mg QHS NOLAN Administration Calcitriol 1 mcg 01/13/21 10:00 01/30/21 11:12 Calcitriol 0.5 Mcg Cap PO 1 mcg QDAY NOLAN Administration Docusate Sodium 100 mg 01/17/21 09:00 Docusate Sodium 100 Mg/10 Ml Oral Liqd PO BID PRN Constipation Doxazosin Mesylate 2 mg 01/18/21 10:00 01/30/21 11:12 Doxazosin 1 Mg Tab PO 2 mg QDAY NOLAN Administration Hydralazine HCl 20 mg 01/28/21 11:27 Hydralazine 20 Mg/1 Ml Inj IV Q4HR PRN Hypertension Hydrophilic Ointment 1 applic 01/15/21 17:14 Lip Therapy Vaseline TP Q2HR PRN Dry Lips Sodium Chloride 100 mls @ 999 mls/hr 01/26/21 12:29 Nacl 0.9% IV DIONNA PRN Hypotension Insulin Glargine 5 units 01/25/21 22:00 01/29/21 22:06 Insulin Glargine 100 Units/Ml SUB-Q 5 units QHS NOLAN Administration Insulin Human Lispro 0 unit 01/16/21 00:00 01/30/21 06:00 Insulin Lispro 100 Unit/Ml SUB-Q 4 unit Q6HR NOLAN Administration Protocol Lansoprazole 30 mg 01/12/21 22:00 01/30/21 11:13 Lansoprazole 30 Mg Solutab FEEDTUBE 30 mg BID NOLAN Administration Levetiracetam 250 mg 01/23/21 22:00 01/29/21 22:06 Levetiracetam 500 Mg/5 Ml Oral Liqd PO 250 mg QHS NOLAN Administration Linagliptin 5 mg 01/13/21 11:00 01/30/21 11:13 Linagliptin 5 Mg Tab PO 5 mg QDDIAB NOLAN Administration Multi-Ingred Cream/Lotion/Oil/Oint 1 applic 01/15/21 17:14 Mineral Oil/Petrolatum, White Ophth Oint 3.5 Gm OU Q4HR PRN Dry Eye(s) Scopolamine 1 each 01/28/21 11:00 01/28/21 11:35 Scopolamine Transdermal Patch 72 Hr TD 1 each Q3D NOLAN Administration Senna 17.2 mg 01/25/21 10:00 01/30/21 03:54 Sennosides 8.6 Mg Tab PO Not Given Q8H NOLAN Simple Syrup 15 ml 01/13/21 10:11 01/18/21 06:54 Simple Syrup 15 Ml FEEDTUBE 15 ml PRN PRN Administration Hypoglycemia Simple Syrup 30 ml 01/13/21 10:11 Simple Syrup 15 Ml FEEDTUBE PRN PRN Hypoglycemia Sodium Bicarbonate 325 mg 01/13/21 10:11 01/27/21 09:43 Sodium Bicarbonate 325 Mg Tab FEEDTUBE 325 mg PRN PRN Administration For Clogged Feeding Tube Sodium Chloride 10 ml 01/12/21 22:00 01/29/21 22:07 Sodium Chloride 0.9% 10 Ml Flush Syringe IV 10 ml BID NOLAN Administration Timolol Maleate 1 drops 01/17/21 10:00 01/30/21 11:13 Timolol 0.5% Ophth Soln 5 Ml OU 1 drops QDAY NOLAN Administration
--- NOTE | 2021-01-30 14:07 | Progress Note ---
Assessment and Plan 81 yo M s/p percutaneous tracheostomy, fiberoptic bronchoscopy CXR - trach in place Plan: 1. trach care per protocol 2. Vent management per ICU team 3. DC planned today to LT[facility] Will s/o Thank you, please call with any questions or concerns. Subjective Date of service: 01/30/21 Narrative: Pt seen and examined. No acute events. Objective Vital Signs - 12hr 01/30/21 01/30/21 01/30/21 02:30 03:00 03:30 Temperature Pulse Rate 91 H 91 H 88 Pulse Rate [ From Monitor] Respiratory 22 23 21 Rate Blood Pressure 134/61 143/67 134/61 O2 Sat by Pulse 100 100 100 Oximetry 01/30/21 01/30/21 01/30/21 04:00 04:30 04:42 Temperature 97.9 F Pulse Rate 88 85 85 Pulse Rate [ 86 From Monitor] Respiratory 13 21 Rate Blood Pressure 137/62 137/62 137/62 O2 Sat by Pulse 100 99 99 Oximetry 01/30/21 01/30/21 01/30/21 05:00 05:30 06:00 Temperature Pulse Rate 87 87 87 Pulse Rate [ From Monitor] Respiratory 20 15 20 Rate Blood Pressure 130/61 130/61 130/61 O2 Sat by Pulse 99 100 98 Oximetry 01/30/21 01/30/21 01/30/21 06:30 07:00 07:30 Temperature Pulse Rate 86 87 84 Pulse Rate [ From Monitor] Respiratory 23 18 19 Rate Blood Pressure 130/61 130/61 127/55 O2 Sat by Pulse 60 L 100 100 Oximetry 01/30/21 01/30/21 01/30/21 07:40 07:45 07:54 Temperature 98 F Pulse Rate 85 84 Pulse Rate [ From Monitor] Respiratory 18 Rate Blood Pressure 127/55 127/55 O2 Sat by Pulse 100 100 Oximetry 01/30/21 01/30/21 01/30/21 08:00 08:30 09:00 Temperature Pulse Rate 86 83 86 Pulse Rate [ From Monitor] Respiratory 26 H 22 13 Rate Blood Pressure 137/56 137/56 123/59 O2 Sat by Pulse 100 100 100 Oximetry 01/30/21 01/30/21 01/30/21 09:30 09:45 10:00 Temperature Pulse Rate 83 85 Pulse Rate [ From Monitor] Respiratory 18 18 Rate Blood Pressure 123/59 125/52 O2 Sat by Pulse 100 100 100 Oximetry 01/30/21 01/30/21 01/30/21 10:30 11:00 11:12 Temperature Pulse Rate 83 82 81 Pulse Rate [ From Monitor] Respiratory 16 12 Rate Blood Pressure 125/52 124/53 124/53 O2 Sat by Pulse 100 100 Oximetry 01/30/21 01/30/21 12:00 12:50 Temperature 97.7 F Pulse Rate 86 Pulse Rate [ From Monitor] Respiratory Rate Blood Pressure 137/47 O2 Sat by Pulse 100 Oximetry - General physical appearance Narrative Exam: Gen.: Awake, eyes open. Does not follow commands ENT: Tracheostomy in place. No hematoma, swelling, bleeding. Dressing intact CV: S1, S2 present Respiratory: No audible wheezes Abdomen: Soft, PEG in place Extremities: contracted - Labs 01/30/21 04:54 01/30/21 04:54 Diabetes panel 01/30/21 Range/Units 04:54 Sodium 136 L (137-145) mmol/L Potassium 3.4 L (3.6-5.0) mmol/L Chloride 95.4 L (98-107) mmol/L Carbon Dioxide 28 (22-30) mmol/L BUN 44 H (9-20) mg/dL Creatinine 2.8 H (0.8-1.3) mg/dL Glucose 197 H (75-100) mg/dL Calcium 8.2 L (8.4-10.2) mg/dL Calcium panel 01/30/21 Range/Units 04:54 Calcium 8.2 L (8.4-10.2) mg/dL Phosphorus 4.10 (2.5-4.5) mg/dL Pituitary panel 01/30/21 Range/Units 04:54 Sodium 136 L (137-145) mmol/L Potassium 3.4 L (3.6-5.0) mmol/L Chloride 95.4 L (98-107) mmol/L Carbon Dioxide 28 (22-30) mmol/L BUN 44 H (9-20) mg/dL Creatinine 2.8 H (0.8-1.3) mg/dL Glucose 197 H (75-100) mg/dL Calcium 8.2 L (8.4-10.2) mg/dL Adrenal panel 01/30/21 Range/Units 04:54 Sodium 136 L (137-145) mmol/L Potassium 3.4 L (3.6-5.0) mmol/L Chloride 95.4 L (98-107) mmol/L Carbon Dioxide 28 (22-30) mmol/L BUN 44 H (9-20) mg/dL Creatinine 2.8 H (0.8-1.3) mg/dL Glucose 197 H (75-100) mg/dL Calcium 8.2 L (8.4-10.2) mg/dL
[2021-01-30 14:39] VITALS: BP 117/60
== END 2021-01-30 15:00 | DRG 4 ==
LOC: ED 13:56 → 4A 18:51 → OBSVTOIN 01-14 09:13 → CC1 01-15 15:42
PROVIDERS: ADMIT Internal Medicine; ATTEND Internal Medicine
PROC: 0BH17EZ Insertion of Endotracheal Airway into Trachea, Via Natural or Artificial Opening (ICD-10-PCS; principal; 2021-01-15)
PROC: 5A1945Z Respiratory Ventilation, 24-96 Consecutive Hours (ICD-10-PCS; 2021-01-15)
PROC: 5A1D70Z Performance of Urinary Filtration, Intermittent, Less than 6 Hours Per Day (ICD-10-PCS; 2021-01-15)
PROC: 06HY33Z Insertion of Infusion Device into Lower Vein, Percutaneous Approach (ICD-10-PCS; 2021-01-16)
PROC: 5A1D70Z Performance of Urinary Filtration, Intermittent, Less than 6 Hours Per Day (ICD-10-PCS; 2021-01-16)
PROC: 0BH18EZ Insertion of Endotracheal Airway into Trachea, Via Natural or Artificial Opening Endoscopic (ICD-10-PCS; 2021-01-17)
PROC: 5A1955Z Respiratory Ventilation, Greater than 96 Consecutive Hours (ICD-10-PCS; 2021-01-17)
PROC: 4A033R1 Measurement of Arterial Saturation, Peripheral, Percutaneous Approach (ICD-10-PCS; 2021-01-17)
PROC: 5A1D70Z Performance of Urinary Filtration, Intermittent, Less than 6 Hours Per Day (ICD-10-PCS; 2021-01-17)
PROC: 5A1D70Z Performance of Urinary Filtration, Intermittent, Less than 6 Hours Per Day (ICD-10-PCS; 2021-01-18)
PROC: 06HY33Z Insertion of Infusion Device into Lower Vein, Percutaneous Approach (ICD-10-PCS; 2021-01-19)
PROC: 5A1D70Z Performance of Urinary Filtration, Intermittent, Less than 6 Hours Per Day (ICD-10-PCS; 2021-01-19)
PROC: 5A1D70Z Performance of Urinary Filtration, Intermittent, Less than 6 Hours Per Day (ICD-10-PCS; 2021-01-22)
PROC: 5A1D70Z Performance of Urinary Filtration, Intermittent, Less than 6 Hours Per Day (ICD-10-PCS; 2021-01-24)
PROC: 5A1D70Z Performance of Urinary Filtration, Intermittent, Less than 6 Hours Per Day (ICD-10-PCS; 2021-01-26)
PROC: 5A1D70Z Performance of Urinary Filtration, Intermittent, Less than 6 Hours Per Day (ICD-10-PCS; 2021-01-28)
PROC: 0B113F4 Bypass Trachea to Cutaneous with Tracheostomy Device, Percutaneous Approach (ICD-10-PCS; 2021-01-29)
PROC: 0BJ08ZZ Inspection of Tracheobronchial Tree, Via Natural or Artificial Opening Endoscopic (ICD-10-PCS; 2021-01-29)
PROC: 5A1D70Z Performance of Urinary Filtration, Intermittent, Less than 6 Hours Per Day (ICD-10-PCS; 2021-01-29)
DX: R56.9 Unspecified convulsions (principal); N18.6 End stage renal disease; J96.01 Acute respiratory failure with hypoxia; I62.03 Nontraumatic chronic subdural hemorrhage; G93.41 Metabolic encephalopathy; E46 Unspecified protein-calorie malnutrition; R57.9 Shock, unspecified; I48.92 Unspecified atrial flutter; E87.1 Hypo-osmolality and hyponatremia; I48.20 Chronic atrial fibrillation, unspecified; Z20.822 Contact with and (suspected) exposure to COVID-19; E87.6 Hypokalemia; E83.39 Other disorders of phosphorus metabolism; I48.91 Unspecified atrial fibrillation; E87.5 Hyperkalemia; E87.70 Fluid overload, unspecified; I67.2 Cerebral atherosclerosis; R13.12 Dysphagia, oropharyngeal phase; F01.50 Vascular dementia, unspecified severity, without behavioral disturbance, psychotic disturbance, mood disturbance, and anxiety; E78.5 Hyperlipidemia, unspecified; D63.8 Anemia in other chronic diseases classified elsewhere; D72.829 Elevated white blood cell count, unspecified; E11.65 Type 2 diabetes mellitus with hyperglycemia; E11.22 Type 2 diabetes mellitus with diabetic chronic kidney disease; Z83.3 Family history of diabetes mellitus; Z82.49 Family history of ischemic heart disease and other diseases of the circulatory system; Z79.899 Other long term (current) drug therapy; Z79.891 Long term (current) use of opiate analgesic; Z79.01 Long term (current) use of anticoagulants; Z99.2 Dependence on renal dialysis
CPT/HCPCS: 31500; 36415; 36600; 70450; 70551; 71045; 74018; 80048; 80053; 80074; 80076; 80164; 80185; 80307; 82140; 82803; 82805; 82962; 83735; 84100; 84443; 85025; 85027; 85610; 85730; 87070; 87076; 87186; 87205; 87641; 93005; 94002; 94003; 95819; 96374; G0378; J7070; J0360; J0692; J0885; J1170; J1815; J1953; J1956; J2060; J2250; J2405; J2704; J3010; J3475; J7030; J7040; J7050; Q2009; U0003